=== PATIENT | male | born 1980 | race African-American/Black ===

== ENCOUNTER 2018-02-01 09:39 | Emergency (ER) | payer BC ==
[2018-02-01 11:29] LABS: Absolute Lymphocytes (CBC) 1.4 K/uL (0.7-4.9); Absolute Monocytes 0.4 K/uL (0.1-1.3); Absolute Neutrophil 2.4 K/uL (1.8-8.0); Basophils % 0.7 % (0-1.3); Eosinophils % 7.2 % (0-4.4); Hematocrit 42.3 % (39.6-49.0); Lymphocytes % 31.2 % (15.3-44.8); MCH 28.7 pg (27.0-35.0); MCV 84.6 fL (80-100); Monocytes % 8.5 % (3.3-12.3)
[2018-02-01 11:35] LABS: Protime INR 1.06
[2018-02-01 12:08] LABS: ALT/SGPT 37 U/L (12-78); AST/SGOT 19 U/L (15-37); Albumin 3.9 g/dL (3.4-5.0); Alkaline Phosphatase 56 U/L (45-117); BUN Blood Urea Nitrogen 13 mg/dL (7-18); Bicarbonate 26 mmol/L (21-32); Bilirubin Direct < 0.1 mg/dL (0-0.2); Bilirubin Total 0.3 mg/dL (0.2-1.0); Glucose Level 88 mg/dL (74-106); Lipase 250 U/L (73-393); Potassium 4.2 mmol/L (3.5-5.1); Sodium Level 143 mmol/L (136-145)
--- NOTE | 2018-02-01 14:09 | RAD REPORT ---
EXAM DESCRIPTION: CT - Abdomen Pelvis Wo Contrast - 02/01/2018 1:59 pm CLINICAL HISTORY: Abdominal pain. LLQ abdomen pain, blood in stool COMPARISON: Abdomen Pelvis Wo Contrast dated 12/04/2015 TECHNIQUE: CT imaging of the abdomen and pelvis was performed without contrast. Solid organ, bowel a nd vascular assessment is limited due to lack of IV and oral contrast. All CT scans are performed using dose optimization technique as appropriate and may include automated exposure control or mA/KV adjustment according to patient size. FINDINGS: The lower lung padgett are clear. The liver, spleen, pancreas, adrenal glands and kidneys are within normal limits for a limited non-co ntrast examination. No bowel obstruction, free air, free fluid or abscess. Mild mucosal thickening is present involving t he sigmoid colon. The appendix is normal. The osseous structures are within normal limits. IMPRESSION: Mild sigmoid colitis is suspected. A limited non-contrast examination was performed as detailed.
[2018-02-01] MEDS ORDERED: DICYCLOMINE HCL 10 MG CAP ONE (14:21)
[2018-02-01] MEDS ORDERED: LIDOCAINE VISCOUS 2% SOLN 15 ML UDC ONE (14:21)
[2018-02-01] MEDS ORDERED: PANTOPRAZOLE 40 MG INJ ONE (14:21)
[2018-02-01] MEDS ORDERED: MAGNE/ALUM HYDROXD 30 ML UCUP ONE (14:21)
[2018-02-01] MEDS ORDERED: NA CHLORIDE 0.9% 1,000 ML ONE (14:21)
--- NOTE | 2018-02-01 14:48 | ER ---
Nurse's Notes [facility] Name: Justin Garza Age: 37 yrs Sex: Male : 1980 Arrival Date: 02/01/2018 Time: 09:42 Bed 14 Private MD: Clive Gonzalez E Diagnosis: Sigmoid Colitis Presentation: 02/01 10:14 Presenting complaint: Patient states: Today I have two BM with bright red blood in the la1 toilet and on the toilet paper, pt denies Abd pain, vomiting, but reports diarrhea. Transition of care: patient was not received from another setting of care. Onset of symptoms was February 01, 2018. Risk Assessment: Do you want to hurt yourself or someone else? Patient reports no desire to harm self or others. Initial Sepsis Screen: Does the patient meet any 2 criteria? No. Patient's initial sepsis screen is negative. Does the patient have a suspected source of infection? No. Patient's initial sepsis screen is negative. Care prior to arrival: None. 10:14 Method Of Arrival: Ambulatory la1 10:14 Acuity: ANNIE 3 la1 Historical: - Allergies: 10:16 amoxicillin trihydrate; la1 10:16 Bees; la1 10:16 Demerol; la1 10:16 Epinephrine; la1 10:16 Iodine; la1 10:16 loratadine; la1 10:16 Nuts; la1 10:16 pseudoephedrine sulfate\E\; la1 10:16 SEAFOOD; la1 10:16 Strawberries; la1 - PMHx: 10:16 Asthma; cardiomyopathy; Irregular heart rate; Seizures; SJS; la1 - Immunization history:: Adult Immunizations up to date. - Social history:: Smoking status: Patient/guardian denies using tobacco. - Ebola Screening: : No symptoms or risks identified at this time. Screenin:30 Abuse screen: Denies threats or abuse. Denies injuries from another. Nutritional jl7 screening: No deficits noted. Tuberculosis screening: No symptoms or risk factors identified. Fall Risk IV access (20 points). Total Rivera Fall Scale indicates No Risk (0-24 pts). Assessment: 11:15 General: Appears in no apparent distress. uncomfortable, Behavior is calm, cooperative, jl7 appropriate for age. Pain: Denies pain. Neuro: Level of Consciousness is awake, alert, obeys commands, Oriented to person, place, time, situation. Cardiovascular: Patient's skin is warm and dry. Respiratory: Airway is patent Respiratory effort is even, unlabored, Respiratory pattern is regular, symmetrical. GI: Abdomen is round non-distended, Reports diarrhea, bloody stool. : No signs and/or symptoms were reported regarding the genitourinary system. EENT: No signs and/or symptoms were reported regarding the EENT system. Derm: Skin is dry, Skin is normal, Skin temperature is warm. Musculoskeletal: 12:08 Reassessment: Pt finished drinking oral contrast, CT notified. jl7 13:14 Reassessment: Patient appears in no apparent distress at this time. No changes from [facility] previously documented assessment. Patient and/or family updated on plan of care and expected duration. Pain level reassessed. Patient is alert, oriented x 3, equal unlabored respirations, skin warm/dry/pink. GI: Pt able to collect stool, stool appears to be green and watery. 14:06 Reassessment: Patient appears in no apparent distress at this time. No changes from [facility] previously documented assessment. Patient and/or family updated on plan of care and expected duration. Pain level reassessed. Patient is alert, oriented x 3, equal unlabored respirations, skin warm/dry/pink. pt reports continued pressure/bloating feeling in abdomen and heart burn. ERP notified, see [facility] for orders. Vital Signs: 10:14 BP 141 / 98; Pulse 86; Resp 16; Temp 97.3; Pulse Ox 98% on R/A; Weight 91.63 kg; Height la1 5 ft. 6 in. (167.64 cm); 11:00 BP 140 / 96; Pulse 82; Resp 17; Pulse Ox 98% ; mh5 12:00 BP 138 / 95; Pulse 80; Resp 18; Pulse Ox 99% on R/A; mh5 13:10 BP 139 / 95; Pulse 72; Resp 17; Pulse Ox 99% on R/A; 5 14:06 BP 136 / 113; Pulse 67; Resp 16 S; Pulse Ox 99% on R/A; jl7 15:22 BP 137 / 93; Pulse 69; Resp 16 S; Pulse Ox 100% on R/A; jl7 10:14 Body Mass Index 32.60 (91.63 kg, 167.64 cm) la1 ED Course: 09:42 Patient arrived in ED. mr 09:43 Clive Gonzalez MD is Private Physician. mr 10:15 Triage completed. la1 10:16 Arm band placed on right wrist. la1 10:41 Jordon Montoya PA is PHCP. cp 10:41 Jonas Swanson MD is Attending Physician. cp 11:12 Mary Lou Hua RN is Primary Nurse. jl7 11:30 Patient has correct armband on for positive identification. Placed in gown. Bed in low jl7 position. Call light in reach. Side rails up X 1. Pulse ox on. NIBP on. Warm blanket given. 11:30 Initial lab(s) drawn, by me, sent to lab. Inserted saline lock: 20 gauge in right jl7 antecubital area, using aseptic technique. Blood collected. 13:59 CT Abd/Pelvis - Without Cont: give oral contrast In Process Unspecified. EDMS 13:59 CT completed. Patient tolerated procedure well. Patient moved back from CT. bq 14:44 Stool Culture Sent. mh5 14:44 CDIFF Sent. [facility] 14:47 Clive Cohen MD is Referral Physician. cp 15:22 No provider procedures requiring assistance completed. IV discontinued, intact, jl7 bleeding controlled, No redness/swelling at site. Pressure dressing applied. Administered Medications: 14:08 Drug: Bentyl 20 mg Route: PO; jl7 15:23 Follow up: Response: No adverse reaction; Pain is decreased jl7 14:09 Drug: GI Cocktail without - (Maalox Suspension 30 ml, Lidocaine Liquid 2 % 15 jl7 ml) Route: PO; 14:30 Follow up: Response: No adverse reaction; Pain is decreased jl7 14:10 Drug: NS 0.9% 1000 ml Route: IV; Rate: 1 bolus; Site: right antecubital; jl7 15:23 Follow up: Response: No adverse reaction; IV Status: Completed infusion jl7 14:11 Drug: ProTONIX 40 mg Route: IVP; Site: right antecubital; jl7 14:30 Follow up: Response: No adverse reaction; Pain is decreased jl7 14:47 Drug: metroNIDAZOLE 500 mg Volume: 100 ml; Route: IVPB; Infused Over: 30 mins; Site: jl7 right antecubital; 15:17 Follow up: Response: No adverse reaction; IV Status: Completed infusion jl7 15:05 Drug: Cipro 500 mg Route: PO; jl7 15:22 Follow up: Response: No adverse reaction jl7 Outcome: 14:48 Discharge ordered by . von 15:22 Discharged to home ambulatory, with family. jl7 15:22 Condition: stable 15:22 Discharge instructions given to patient, family, Instructed on discharge instructions, follow up and referral plans. medication usage, Demonstrated understanding of instructions, follow-up care, medications, Prescriptions given X 4. 15:26 Patient left the ED. jl7 Signatures: Dispatcher [employer] JUDY JlIlana mr CoreasKorina Lee RN RN la1 Jordon Montoya PA PA cp Martinez, Maria [facility] Mary Lou Hua RN RN jl7 Corrections: (The following items were deleted from the chart) 14:31 14:06 Reassessment: Patient appears in no apparent distress at this time. No changes jl7 from previously documented assessment. Patient and/or family updated on plan of care and expected duration. Pain level reassessed. Patient is alert, oriented x 3, equal unlabored respirations, skin warm/dry/pink. jl7
--- NOTE | 2018-02-01 14:49 | EDPHYS ---
Physician Documentation [facility] Name: Justin Garza Age: 37 yrs Sex: Male : 1980 Arrival Date: 02/01/2018 Time: 09:42 Bed 14 Private MD: Clive Gonzalez E ED Physician Jonas Swanson HPI: 02/01 11:10 This 37 yrs old Black Male presents to ER via Ambulatory with complaints of Bloody cp Stools. Historical: - Allergies: 10:16 amoxicillin trihydrate; la1 10:16 Bees; la1 10:16 Demerol; la1 10:16 Epinephrine; la1 10:16 Iodine; la1 10:16 loratadine; la1 10:16 Nuts; la1 10:16 pseudoephedrine sulfate\E\; la1 10:16 SEAFOOD; la1 10:16 Strawberries; la1 - PMHx: 10:16 Asthma; cardiomyopathy; Irregular heart rate; Seizures; SJS; la1 - Immunization history:: Adult Immunizations up to date. - Social history:: Smoking status: Patient/guardian denies using tobacco. - Ebola Screening: : No symptoms or risks identified at this time. ROS: 11:15 Constitutional: Negative for body aches, chills, fever, poor PO intake, weight loss. cp 11:15 Eyes: Negative for injury, pain, redness, and discharge. cp Exam: 11:20 Constitutional: The patient appears in no acute distress, alert, awake, non-toxic, well cp developed, well nourished. 11:20 Head/Face: Normocephalic, atraumatic. cp 11:20 Eyes: Periorbital structures: appear normal, Conjunctiva: normal, no exudate, no injection, Sclera: no appreciated abnormality, Lids and lashes: appear normal, bilaterally. 11:20 ENT: External ear(s): are unremarkable, Nose: is normal, Mouth: Lips: moist, Oral mucosa: pink and intact, moist, Posterior pharynx: is normal, airway is patent, no erythema, no exudate. 11:20 Chest/axilla: Inspection: normal, Palpation: is normal, no crepitus, no tenderness. 11:20 Cardiovascular: Rate: normal, Rhythm: regular, Heart sounds: murmur, not appreciated, Edema: is not appreciated, JVD: is not appreciated. 11:20 Respiratory: the patient does not display signs of respiratory distress, Respirations: normal, no use of accessory muscles, no retractions, no splinting, no tachypnea, labored breathing, is not present, Breath sounds: are clear throughout, no decreased breath sounds, no stridor, no wheezing. 11:20 Abdomen/GI: Inspection: abdomen appears normal, Bowel sounds: active, all quadrants, Palpation: soft, in all quadrants, mild abdominal tenderness, in the left lower quadrant, rebound tenderness, is not appreciated, involuntary guarding, is not appreciated, Rectal exam: Stool: guadalupe, guaiac negative. 11:20 Back: pain, is absent, ROM is normal. 11:20 Skin: cellulitis, is not appreciated, no rash present. 11:20 Neuro: Orientation: is normal, Mentation: is normal, Cerebellar function: is grossly normal, Motor: moves all fours, strength is normal, Sensation: is normal. Vital Signs: 10:14 BP 141 / 98; Pulse 86; Resp 16; Temp 97.3; Pulse Ox 98% on R/A; Weight 91.63 kg; Height la1 5 ft. 6 in. (167.64 cm); 11:00 BP 140 / 96; Pulse 82; Resp 17; Pulse Ox 98% ; mh5 12:00 BP 138 / 95; Pulse 80; Resp 18; Pulse Ox 99% on R/A; mh5 13:10 BP 139 / 95; Pulse 72; Resp 17; Pulse Ox 99% on R/A; mh5 14:06 BP 136 / 113; Pulse 67; Resp 16 S; Pulse Ox 99% on R/A; jl7 15:22 BP 137 / 93; Pulse 69; Resp 16 S; Pulse Ox 100% on R/A; jl7 10:14 Body Mass Index 32.60 (91.63 kg, 167.64 cm) la1 MDM: 10:41 Patient medically screened. cp 14:47 Data reviewed: vital signs, nurses notes, lab test result(s), radiologic studies, CT cp scan, and as a result, I will discharge patient. 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 02/01 11:02 Order name: Basic Metabolic Panel; Complete Time: 12:28 cp 02/01 11:02 Order name: CBC with Diff; Complete Time: 12:28 cp 02/01 12:28 Interpretation: Normal except: MPV 7.0; EOSINOPHIL % 7.2. cp 02/01 11:02 Order name: Creatinine for Radiology; Complete Time: 12:28 cp 02/01 11:02 Order name: Hepatic Function; Complete Time: 12:28 cp 02/01 11:02 Order name: Lipase; Complete Time: 12:28 cp 02/01 11:02 Order name: PT-INR; Complete Time: 12:28 cp 02/01 11:02 Order name: Ptt, Activated; Complete Time: 12:28 cp 02/01 11:02 Order name: CT Abd/Pelvis - Without Cont: give oral contrast; Complete Time: 14:16 cp 02/01 14:17 Order name: Stool Culture 02/01 14:17 Order name: CDIFF cp 02/01 11:02 Order name: IV Saline Lock; Complete Time: 11:23 cp 02/01 11:02 Order name: Labs collected and sent; Complete Time: 11: cp 02/01 14:43 Order name: PO challenge; Complete Time: 14:47 cp Administered Medications: 14:08 Drug: Bentyl 20 mg Route: PO; jl7 15:23 Follow up: Response: No adverse reaction; Pain is decreased jl7 14:09 Drug: GI Cocktail without - (Maalox Suspension 30 ml, Lidocaine Liquid 2 % 15 jl7 ml) Route: PO; 14:30 Follow up: Response: No adverse reaction; Pain is decreased jl7 14:10 Drug: NS 0.9% 1000 ml Route: IV; Rate: 1 bolus; Site: right antecubital; jl7 15:23 Follow up: Response: No adverse reaction; IV Status: Completed infusion jl7 14:11 Drug: ProTONIX 40 mg Route: IVP; Site: right antecubital; jl7 14:30 Follow up: Response: No adverse reaction; Pain is decreased jl7 14:47 Drug: metroNIDAZOLE 500 mg Volume: 100 ml; Route: IVPB; Infused Over: 30 mins; Site: [facility] right antecubital; 15:17 Follow up: Response: No adverse reaction; IV Status: Completed infusion 7 15:05 Drug: Cipro 500 mg Route: PO; 7 15:22 Follow up: Response: No adverse reaction [facility] Disposition: 02/01/18 14:48 Discharged to Home. Impression: Sigmoid Colitis. - Condition is Stable. - Discharge Instructions: Colitis. - Prescriptions for Cipro 500 mg Oral Tablet - take 1 tablet by ORAL route every 12 hours for 10 days; 20 tablet. Ultram 50 mg Oral Tablet - take 1 tablet by ORAL route every 6 hours As needed; 20 tablet. Metronidazole 500 mg Oral Tablet - take 1 tablet by ORAL route every 8 hours; 30 tablet. Protonix 40 mg Oral Tablet, Delayed Release (E.C.) - take 1 tablet by ORAL route once daily; 10 tablet. - Medication Reconciliation Form, Thank You Letter, Antibiotic Education, Prescription Opioid Use, Work release form form. - Follow up: Clive Cohen MD; When: 2 - 3 days; Reason: Recheck today's complaints. - Problem is new. - Symptoms have improved. Signatures: Dispatcher [employer] EDMS Sanjay Caly RN RN la1 Jordon Montoya PA PA cp Mary Lou Hua RN RN jl7 Corrections: (The following items were deleted from the chart) 15:26 14:48 02/01/2018 14:48 Discharged to Home. Impression: Sigmoid Colitis. Condition is [facility] Stable. Forms are Medication Reconciliation Form, Thank You Letter, Antibiotic Education, Prescription Opioid Use. Follow up: Clive Cohen; When: 2 - 3 days; Reason: Recheck today's complaints. Problem is new. Symptoms have improved. cp
[2018-02-01] MEDS ORDERED: METRONIDAZOLE 500mg IVPB 500 MG/100 ML BAG IV ONE (14:54)
[2018-02-01] MEDS ORDERED: CIPROFLOXACIN HCL 500 MG TAB ONE (15:06)
[2018-02-01 16:55] VITALS: TEMP 97.3
[2018-02-01 17:03] VITALS: BP 137/93; O2SAT 100
== END 2018-02-01 15:26 | disposition home or self-care (01) ==
LOC: ER 09:39
DX: K52.89 Other specified noninfective gastroenteritis and colitis (principal); Z88.1 Allergy status to other antibiotic agents; Z88.5 Allergy status to narcotic agent; Z88.8 Allergy status to other drugs, medicaments and biological substances; Z91.013 Allergy to seafood; Z91.018 Allergy to other foods; Z91.030 Bee allergy status; Z91.048 Other nonmedicinal substance allergy status
CPT/HCPCS: 36415; 74176; 80048; 80076; 83690; 85025; 85610; 85730; 87045; 87046; 87493; 96361; 96365; 96375; 99284; C9113; J7030

== ENCOUNTER 2018-04-05 10:37 | Observation (INO) | payer BC ==
[2018-04-05] MEDS ORDERED: LEVALBUTEROL 1.25 MG/3 ML NEB ONE (11:09)
[2018-04-05 11:21] LABS: Absolute Lymphocytes (CBC) 1.1 K/uL (0.7-4.9); Absolute Monocytes 0.3 K/uL (0.1-1.3); Absolute Neutrophil 1.2 K/uL (1.8-8.0); Basophils % 0.8 % (0-1.3); Eosinophils % 10.4 % (0-4.4); Hematocrit 42.4 % (39.6-49.0); Lymphocytes % 37.4 % (15.3-44.8); RBC Red Blood Cell Count 5.02 M/uL (4.33-5.43)
[2018-04-05 11:24] LABS: Protime INR 1.15
[2018-04-05] MEDS ORDERED: METHYLPREDNISOLONE 125 MG INJ ONE (11:40)
[2018-04-05] MEDS ORDERED: ASPIRIN 81 MG CHEWABLE TABLET ONE (11:40)
[2018-04-05 11:41] LABS: ALT/SGPT 41 U/L (12-78); AST/SGOT 18 U/L (15-37); Albumin 3.9 g/dL (3.4-5.0); Alkaline Phosphatase 58 U/L (45-117); BUN Blood Urea Nitrogen 9 mg/dL (7-18); Bicarbonate 28 mmol/L (21-32); Bilirubin Direct 0.1 mg/dL (0-0.2); Bilirubin Total 0.5 mg/dL (0.2-1.0); Glucose Level 106 mg/dL (74-106); Magnesium 2.2 mg/dL (1.8-2.4); NT PRO-BNP 34 pg/mL (<125); Potassium 4.2 mmol/L (3.5-5.1); Protein, Total 7.7 g/dL (6.4-8.2); Sodium Level 144 mmol/L (136-145); Troponin (Emerg Dept Use Only) < 0.02 ng/mL (0.0-0.045)
--- NOTE | 2018-04-05 12:12 | EDPHYS ---
Physician Documentation [facility] Name: Justin Garza Age: 37 yrs Sex: Male : 1980 Arrival Date: 04/05/2018 Time: 10:39 Bed 6 Private MD: Clive Gonzalez E ED Physician Jordon Bermudez HPI: 04/05 10:52 This 37 yrs old Black Male presents to ER via Ambulatory with complaints of Shortness jmm Of Breath. 10:52 The patient has shortness of breath with light activity. Onset: The symptoms/episode jmm began/occurred gradually, 3 day(s) ago. Associated signs and symptoms: Pertinent positives: chest pain. This is a 37 year old male with a history of asthma, chf, cardiomyopathy, that presents to the ED with complaints of shortness of breath beginning 3 days ago. patient recently diagnosed with chf and is currently taking 40mg of furosemide. Patient complaints o worsening shortness of breath on exertion. Patient also complains of chest pain he describes as pressure. . Historical: - Allergies: 10:51 amoxicillin trihydrate; ch 10:51 Bees; ch 10:51 Demerol; ch 10:51 Epinephrine; ch 10:51 Iodine; ch 10:51 loratadine; ch 10:51 Nuts; ch 10:51 pseudoephedrine sulfate\E\; ch 10:51 SEAFOOD; ch 10:51 Strawberries; ch - Home Meds: 10:51 tramadol 50 mg Oral tab 1 tab for Pain [Active]; amlodipine 5 mg tab 1 tab once daily ch [Active]; Dexilant 60 mg oral CpDB 1 cap for Heartburn [Active]; Lasix 40 mg Oral tab 1 tab once daily [Active]; Albuterol Inhl [Active]; Proventil Inhl [Active]; Singulair Oral [Active]; - PMHx: 10:51 Asthma; cardiomyopathy; Irregular heart rate; Seizures; SJS; CHF; GERD; ch - Immunization history:: Adult Immunizations up to date. - Social history:: Smoking status: Patient/guardian denies using tobacco. - Ebola Screening: : Patient negative for fever greater than or equal to 101.5 degrees Fahrenheit, and additional compatible Ebola Virus Disease symptoms Patient denies exposure to infectious person Patient denies travel to an Ebola-affected area in the 21 days before illness onset No symptoms or risks identified at this time. ROS: 10:52 Constitutional: Negative for fever, chills, and weight loss. jm 10:52 Cardiovascular: Positive for chest pain. 10:52 Respiratory: Positive for shortness of breath. 10:52 All other systems are negative. Exam: 10:52 Constitutional: This is a well developed, well nourished patient who is awake, alert, jmm and in no acute distress. Head/Face: atraumatic. Eyes: EOMI, no conjunctival erythema appreciated ENT: Moist Mucus Membranes Neck: Trachea midline, Supple Chest/axilla: Normal chest wall appearance and motion. 10:52 Abdomen/GI: Non distended, soft Back: Normal ROM Skin: General appearance color normal MS/ Extremity: Moves all extremities, no obvious deformities appreciated, no edema noted to the lower extremities Neuro: Awake and alert, normal gait Psych: Behavior is normal, Mood is normal, Patient is cooperative and pleasant 10:52 Cardiovascular: Rate: normal, Rhythm: regular. 10:52 Respiratory: mild respiratory distress is noted, Respirations: normal, Breath sounds: wheezing: that is moderate, is scattered. Vital Signs: 10:51 BP 123 / 72; Pulse 90; Resp 26; Temp 98.8; Pulse Ox 94% on R/A; Pain 4/10; ch 11:12 Temp 98.1(O); Weight 88.45 kg; Height 5 ft. 6 in. (167.64 cm); ch 12:00 BP 123 / 80; Pulse 78; Resp 20; Temp 97.9; Pulse Ox 99% on R/A; Pain 3/10; ch 13:00 BP 122 / 96; Pulse 57; Resp 16; Temp 97.9; Pulse Ox 96% on R/A; Pain 3/10; ch 11:12 Body Mass Index 31.47 (88.45 kg, 167.64 cm) ch MDM: 10:41 Patient medically screened. alvarez 11:59 Differential diagnosis: asthma, CHF exacerbation, Myocardial Infarction. Data reviewed: [facility] vital signs, nurses notes, lab test result(s), radiologic studies, plain films. Counseling: I had a detailed discussion with the patient and/or guardian regarding: the historical points, exam findings, and any diagnostic results supporting the discharge/admit diagnosis, lab results, radiology results, the need for outpatient follow up, to return to the emergency department if symptoms worsen or persist or if there are any questions or concerns that arise at home. 12:10 ED course: I discussed the patient with Dr. Cotto whom accepted admission. . 04/05 10:51 Order name: Basic Metabolic Panel; Complete Time: 11:49 04/05 10:51 Order name: CBC with Diff; Complete Time: 11:25 04/05 10:51 Order name: LFT's; Complete Time: 11:04/05 10:51 Order name: Magnesium; Complete Time: 11:04/05 10:51 Order name: NT PRO-BNP; Complete Time: 11:49 04/05 10:51 Order name: PT-INR; Complete Time: 11:04/05 10:51 Order name: Troponin (emerg Dept Use Only); Complete Time: 11:49 04/05 10:51 Order name: XRAY Chest (1 view); Complete Time: 12:15 04/05 10:51 Order name: EKG; Complete Time: 10:52 04/05 10:51 Order name: Cardiac monitoring; Complete Time: 11:04/05 10:51 Order name: EKG - Nurse/Tech; Complete Time: 11: 04/05 10:51 Order name: IV Saline Lock; Complete Time: 13:12 04/05 10:51 Order name: Labs collected and sent; Complete Time: 13:12 04/05 10:51 Order name: O2 Per Protocol; Complete Time: 13: [facility] 04/05 10:51 Order name: O2 Sat Monitoring; Complete Time: 13:12 [facility] Administered Medications: 11:12 Drug: Xopenex (3) 1.25 mg Route: Inhalation; ch 11:46 Follow up: Response: No adverse reaction ch 11:22 Drug: SOLU-Medrol 125 mg Route: IVP; Site: right antecubital; ch 11:46 Follow up: Response: No adverse reaction ch 11:22 Drug: Aspirin Chewable Tablet 324 mg Route: PO; ch 12:32 Follow up: Response: No adverse reaction ch Disposition: 04/06 07:52 Co-signature as Attending Physician, Jordon Bermudez MD I agree with the assessment and alvarez plan of care. Disposition: 04/05/18 12:11 Hospitalization ordered by Michele Cotto for Observation. Preliminary diagnosis is Chest pain, unspecified. - Bed requested for Telemetry/MedSurg (observation). - Status is Observation. - Condition is Stable. - Problem is an acute exacerbation. - Symptoms have improved. UTI on Admission? No Signatures: Dispatcher [employer] EDRoya Sam RN RN ch Anderson, Corey, MD MD cha Mickail, Joel, PA PA jmm Solis, Maria ms Corrections: (The following items were deleted from the chart) 04/05 12:46 12:11 Hospitalization Ordered by Michele Cotto DO for Observation. Preliminary ms diagnosis is Chest pain, unspecified. Bed requested for Telemetry/MedSurg (observation). Status is Observation. Condition is Stable. Problem is an acute exacerbation. Symptoms have improved. UTI on Admission? No. jose 13:54 12:46 04/05/2018 12:11 Hospitalization Ordered by Michele Cotto DO for Observation. Preliminary diagnosis is Chest pain, unspecified. Bed requested for Telemetry/MedSurg (observation). Status is Observation. Condition is Stable. Problem is an acute exacerbation. Symptoms have improved. UTI on Admission? No. ms
--- NOTE | 2018-04-05 12:12 | ER ---
Nurse's Notes [facility] Emergency Department Name: Justin Garza Age: 37 yrs Sex: Male : 1980 Arrival Date: 04/05/2018 Time: 10:39 Bed 6 Private MD: Clive Gonzalez E Diagnosis: Chest pain, unspecified Presentation: 04/05 10:46 Presenting complaint: Patient states: chest pain, sob, cough, chest tightness for the ch past 3 days, getting worse. Transition of care: patient was not received from another setting of care. Onset of symptoms was April 02, 2017. Risk Assessment: Do you want to hurt yourself or someone else? Patient reports no desire to harm self or others. Initial Sepsis Screen: Does the patient meet any 2 criteria? No. Patient's initial sepsis screen is negative. Does the patient have a suspected source of infection? No. Patient's initial sepsis screen is negative. Care prior to arrival: Medication(s) given: Albuterol Neb Atrovent Neb. 10:46 Method Of Arrival: Ambulatory 10:46 Acuity: ANNIE 2 ch Triage Assessment: 10:51 General: Appears in no apparent distress. uncomfortable, Behavior is calm, cooperative, ch appropriate for age. Pain: Complains of pain in chest Pain currently is 4 out of 10 on a pain scale. Quality of pain is described as pressure, Pain began 2-3 days ago. Is continuous. Neuro: No deficits noted. Respiratory: Reports shortness of breath Airway is patent Respiratory effort is even, labored, Respiratory pattern is regular, Breath sounds with wheezes bilaterally. Onset: The symptoms/episode began/occurred gradually, the patient has moderate shortness of breath. Historical: - Allergies: 10:51 amoxicillin trihydrate; ch 10:51 Bees; ch 10:51 Demerol; ch 10:51 Epinephrine; ch 10:51 Iodine; ch 10:51 loratadine; ch 10:51 Nuts; ch 10:51 pseudoephedrine sulfate\E\; ch 10:51 SEAFOOD; ch 10:51 Strawberries; ch - Home Meds: 10:51 tramadol 50 mg Oral tab 1 tab for Pain [Active]; amlodipine 5 mg tab 1 tab once daily ch [Active]; Dexilant 60 mg oral CpDB 1 cap for Heartburn [Active]; Lasix 40 mg Oral tab 1 tab once daily [Active]; Albuterol Inhl [Active]; Proventil Inhl [Active]; Singulair Oral [Active]; - PMHx: 10:51 Asthma; cardiomyopathy; Irregular heart rate; Seizures; SJS; CHF; GERD; ch - Immunization history:: Adult Immunizations up to date. - Social history:: Smoking status: Patient/guardian denies using tobacco. - Ebola Screening: : Patient negative for fever greater than or equal to 101.5 degrees Fahrenheit, and additional compatible Ebola Virus Disease symptoms Patient denies exposure to infectious person Patient denies travel to an Ebola-affected area in the 21 days before illness onset No symptoms or risks identified at this time. Screenin:00 Abuse screen: Denies threats or abuse. Denies injuries from another. Nutritional ch screening: No deficits noted. Tuberculosis screening: No symptoms or risk factors identified. Fall Risk None identified. Assessment: 11:12 Reassessment: Patient appears in no apparent distress at this time. No changes from previously documented assessment. Patient and/or family updated on plan of care and expected duration. Pain level reassessed. Cardiovascular: Rhythm is sinus rhythm. 12:00 Reassessment: Patient appears in no apparent distress at this time. Patient and/or ch family updated on plan of care and expected duration. Pain level reassessed. Patient is alert, oriented x 3, equal unlabored respirations, skin warm/dry/pink. Patient states feeling better. Patient states symptoms have improved. 13:00 Reassessment: Patient appears in no apparent distress at this time. Patient and/or ch family updated on plan of care and expected duration. Pain level reassessed. Patient is alert, oriented x 3, equal unlabored respirations, skin warm/dry/pink. Vital Signs: 10:51 BP 123 / 72; Pulse 90; Resp 26; Temp 98.8; Pulse Ox 94% on R/A; Pain 4/10; ch 11:12 Temp 98.1(O); Weight 88.45 kg; Height 5 ft. 6 in. (167.64 cm); 12:00 BP 123 / 80; Pulse 78; Resp 20; Temp 97.9; Pulse Ox 99% on R/A; Pain 3/10; ch 13:00 BP 122 / 96; Pulse 57; Resp 16; Temp 97.9; Pulse Ox 96% on R/A; Pain 3/10; ch 11:12 Body Mass Index 31.47 (88.45 kg, 167.64 cm) ED Course: 10:39 Patient arrived in ED. as 10:39 Clive Gonzalez MD is Private Physician. as 10:39 Roya Leon, TAMMIE is Primary Nurse. ch 10:40 Lalo Barajas PA is PHCP. [facility] 10:40 Jordon Bermudez MD is Attending Physician. [facility] 10:47 Triage completed. ch 10:51 Arm band placed on left wrist. Patient placed in an exam room, on a stretcher, on pulse ch oximetry. EKG completed in triage. Results shown to MD. 11:00 Patient has correct armband on for positive identification. Placed in gown. Bed in low ch position. Call light in reach. Side rails up X 1. Adult w/ patient. densitometer reader on. Pulse ox on. NIBP on. 11:00 Warm blanket given. 11:01 EKG done, by ED staff, reviewed by Lalo CARRILLO. 3 11:28 XRAY Chest (1 view) In Process Unspecified. EDMS 11:30 No provider procedures requiring assistance completed. Inserted saline lock: 20 gauge ch in right antecubital area, using aseptic technique. 12:10 Michele Cotto DO is Hospitalizing Provider. [facility] 12:56 Patient admitted, IV remains in place. ch Administered Medications: 11:12 Drug: Xopenex (3) 1.25 mg Route: Inhalation; ch 11:46 Follow up: Response: No adverse reaction 11:22 Drug: SOLU-Medrol 125 mg Route: IVP; Site: right antecubital; ch 11:46 Follow up: Response: No adverse reaction 11:22 Drug: Aspirin Chewable Tablet 324 mg Route: PO; ch 12:32 Follow up: Response: No adverse reaction Outcome: 12:11 Decision to Hospitalize by Provider. [facility] 13:00 Admitted to Tele accompanied by tech, via wheelchair, room 414, with chart, Report ch called to jensen 13:00 Condition: stable 13:00 Instructed on the need for admit. 13:54 Patient left the ED. Signatures: Dispatcher [employer] EDMS Ryoa Leon, RN RN Lalo Goode PA PA jmm Martinez, Amelia as Herrera, Matilda formerly [facility]
--- NOTE | 2018-04-05 12:13 | RAD REPORT ---
EXAM DESCRIPTION: Ronald Single View04/05/2018 11:31 am CLINICAL HISTORY: sob COMPARISON: 2017 FINDINGS: The lungs appear clear of acute infiltrate. The heart is normal size IMPRESSION: No acute abnormalities displayed
--- NOTE | 2018-04-05 12:55 | P.HP ---
Certification for Inpatient Patient admitted to: Observation With expected LOS: <2 Midnights Patient will require the following post-hospital care: None Practitioner: I am a practitioner with admitting privileges, knowledge of patient current condition, hospital course, and medical plan of care. Services: Services provided to patient in accordance with Admission requirements found in Title 42 Section 412.3 of the Code of Federal Regulations Patient History Date of Service: 04/05/18 Primary Care Provider: Dr. Gonzalez; Cardiology-Dr. Fisher Reason for admission: Chest pain and shortness of breath History of Present Illness: 37-year-old male presented to the emergency room with chest pain and shortness of breath. Patient with history of asthma, cardiomyopathy and systolic CHF. Patient seen by cardiology as an outpatient. Patient reported shortness of breath and chest pain over the last 3 days. Chest pain is substernal in nature. He reports it is a pressure like sensation. Patient recently started on Lasix. He was taken off lisinopril. Patient came to the ER for further evaluation. In the ER patient evaluated. Initial cardiac enzymes unremarkable. EKG shows some T-wave inversion. No ST changes noted. Chest x-ray unremarkable. CBC and lab reviewed. Patient admitted for further evaluation. When I saw the patient ER, he appeared comfortable. Patient also seen by Cardiology. Allergies amoxicillin trihydrate [From Amoxil] Allergy (Severe, Verified 12/01/11 20:24) Itching/Hives/Rash iodine Allergy (Severe, Verified 12/01/11 20:24) Itching loratadine [From Claritin-D 12 Hour] Allergy (Severe, Verified 12/01/11 20:24) Itching/Hives/Rash pseudoephedrine sulfate [From Claritin-D 12 Hour] Allergy (Severe, Verified 30/01 20:24) Itching/Hives/Rash epinephrine Allergy (Verified 12/02/11 15:46) Anaphylaxis meperidine [From Demerol] Allergy (Unverified 11/22/16 12:54) Unknown SE Allergy (Mild, Uncoded 12/09/16 11:08) Unknown Bees Allergy (Uncoded 08/14/15 02:30) Unknown Nuts Allergy (Uncoded 08/14/15 02:30) Unknown pseudoephedr Allergy (Uncoded 08/14/15 02:30) Unknown pseudoephedrine Allergy (Uncoded 11/22/16 12:54) Unknown pseudoephedrine s Allergy (Uncoded 11/02/16 21:55) Unknown pseudoephedrine riley Allergy (Uncoded 03/21/16 00:18) Unknown seafo Allergy (Uncoded 08/14/15 02:30) Unknown SEAFOO Allergy (Uncoded 11/02/16 21:55) Unknown SEAFOOD Allergy (Uncoded 03/21/16 00:18) Unknown Strawberri Allergy (Uncoded 08/14/15 02:30) Unknown Strawberries Allergy (Uncoded 03/21/16 00:18) Unknown Home medications list reviewed: Yes Home Medications: Home Med [Home or Non Formulary Med*] 12/02/11 Home Med [Home or Non Formulary Med*] 12/02/11 Home Med [Home or Non Formulary Med*] 12/02/11 Cetirizine HCl [Zyrtec] 10 mg PO DAILY #0 tablet 12/04/11 Fluticasone/Salmeterol [Advair 250/50 Diskus*] 1 puff IH BID #0 disk 12/04/11 Hydrocodone 5/APAP 325 [[place]field 5/325*] 1 each PO Q6HP PRN #0 tab 12/04/11 Levalbuterol [Xopenex*] 1.25 mg IH Q6HP PRN #0 vial 12/04/11 Methylprednisolone [Medrol] 0 mg PO CONT #0 tablet 12/04/11 Montelukast Sodium [Singulair] 10 mg PO DAILY #0 tablet 12/04/11 - Past Medical/Surgical History Diabetic: No -: Asthma -: Systolic CHF -: Cardiomyopathy Past Surgical History: Patient denies surgical history Psychosocial/ Personal History: Patient is . He has 1 child. 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 - Family History Father -: Heart disease, Hypertension, Stroke - Social History Smoking Status: Never smoker Alcohol use: Yes CD- Drugs: No Caffeine use: Yes Place of Residence: Home Review of Systems General: As per HPI Eyes: Unremarkable ENT: Unremarkable Respiratory: Shortness of Breath, SOB with Excertion, As per HPI Cardiovascular: Chest Pain, As per HPI Gastrointestinal: Unremarkable Genitourinary: Unremarkable Musculoskeletal: Unremarkable Integumentary: Unremarkable Neurological: Unremarkable Lymphatics: Unremarkable Physical Examination - Physical Exam General: Alert, In no apparent distress, Oriented x3, Cooperative HEENT: Atraumatic, Normocephalic, PERRLA, Mucous membr. moist/pink Neck: Supple, No Thyromegaly Respiratory: Clear to auscultation bilaterally, Normal air movement Cardiovascular: Normal pulses, Regular rate/rhythm Gastrointestinal: Normal bowel sounds, Soft and benign, Non-distended, No tenderness, No masses, No rebound, No guarding Musculoskeletal: No erythema, No tenderness, No warmth Integumentary: No tenderness/swelling, No erythema, No warmth, No cyanosis Neurological: Normal speech, Normal strength at 5/5 x4 extr, Normal tone, Normal affect - Studies Laboratory Data (last 24 hrs) 04/05/18 11:04: PT 13.5 H, INR 1.15 04/05/18 11:04: WBC 3.0 L, Hgb 14.1, Hct 42.4, Plt Count 304 04/05/18 11:04: Sodium 144, Potassium 4.2, BUN 9, Creatinine 1.21, Glucose 106, Magnesium 2.2, Total Bilirubin 0.5, AST 18, ALT 41, Alkaline Phosphatase 58 Assessment and Plan - Plan Impression: Chest pain which shortness of breath with history of cardiomyopathy and chronic systolic CHF Asthma Plan: Chest pain which shortness of breath with history of cardiomyopathy and chronic systolic CHF: Patient will be admitted. Will continue to monitor cardiac enzymes and telemetry. Will provide aspirin. Spoke with cardiology. Will order cardiac stress test to further evaluate his condition. Continue Lasix for his CHF. Will place on a 1500 cc per day fluid restriction. Will maintain sats above 90%. Await stress tests result findings. If negative likely anticipate discharge tomorrow. I will turn the service over to Dr. Desouza tomorrow. I will go over the plan of care with her. Asthma: Continue with albuterol. Will maintain sats above 90%. Will restart Singulair Discharge Plan: Home Plan to discharge in: 24 Hours - Advance Directives Does patient have a Living Will: No Does patient have a Durable POA for Healthcare: No - Code Status/Comfort Care Code Status Assessed: Yes (Patient full code.) Time Spent Managing Pts Care (In Minutes): 55
[2018-04-05] MEDS ORDERED: ONDANSETRON 4 MG/2 ML VIAL IV PRN (13:35)
[2018-04-05] MEDS ORDERED: ALBUTEROL 2.5 MG/3 ML NEB SOL NEB PRN ×2 (13:35→18:41)
[2018-04-05 14:12] VITALS: BMI 31.6
[2018-04-05 14:54] LABS: CKMB Creatine Kinase MB 1.4 ng/mL (0.3-3.6); Creatine Phosphokinase 172 U/L (39-308); Thyroid Stimulating Hormone 0.318 uIU/mL (0.360-3.740); Troponin I < 0.02 ng/mL (0.0-0.045)
--- NOTE | 2018-04-05 14:57 | CON ---
History Of Present Illness: Mr. Garza is 37-year-old. He came to the hospital with chest pain. Enzy mes and EKGs are within normal limits. He has a history of cardiomyopathy. His ejection fraction is in the 45-49% range, so mildly depressed. He has developed heart failure symptoms, but he is asympt omatic with respect to heart failure symptoms presently. It was within the past month that we starte d typical congestive heart failure medications and it seemed to have helped him. He is allergic to a moxicillin, iodine, and loratadine. He has a history of mild mental retardation. Medications: Outpatient medications have been tramadol, amlodipine, Dexilant, albuterol, Proventil, Lasix, and he is also on one of the angiotensin receptor blockers that he did not list. I think ther e is a medication error in our list and I will do my best to straighten that out. Impression: Mr. Garza probably is not having symptoms from coronary artery disease. His symptoms are very atypical chest pain and if the enzymes are normal, we will do a pharmacologic nuclear stress te st. QUINN/BUDDY Voice ID: [id number] Report ID: [id number]
[2018-04-05] MEDS: ENOXAPARIN 40 MG/0.4 ML SQ SCH (15:00)
[2018-04-05 15:42] LABS: Urine Appearance CLEAR; Urine Bilirubin NEGATIVE (NEG); Urine Blood NEGATIVE (NEG); Urine Color YELLOW; Urine Glucose NEGATIVE (NEG); Urine Protein 1+ (NEG); Urine Specific Gravity >=1.030 (1.005-1.030); Urine Urobilinogen 0.2 mg/dL (0.2-1.0); Urine pH 8.5 (5.0-7.0)
[2018-04-05] MEDS: IPRATROPIUM BROM 0.5MG/2.5ML NEB PRN (16:30)
[2018-04-05] MEDS: ACETAMINOPHEN 500 MG TAB PO PRN (16:51)
[2018-04-05 17:18] LABS: Urine Microscopic Reflex ORDER UMIC
[2018-04-05 18:08] LABS: Urine Bacteria NONE SEEN /HPF (NONE SEEN); Urine Culture Reflex Order NOT NEEDED; Urine RBC NONE SEEN /HPF (NONE SEEN)
[2018-04-05] MEDS ORDERED: IBUPROFEN 400 MG TAB PO PRN (18:30)
[2018-04-05] MEDS ORDERED: TRAMADOL HCL 50 MG TAB PO PRN (18:30)
[2018-04-05] MEDS ORDERED: MORPHINE 2 MG/ML SYR IV PRN (18:39)
[2018-04-05] MEDS ORDERED: NITROGLYCERIN 0.4 MG/TAB SL PRN (18:39)
[2018-04-05] MEDS: MAGNESIUM SULFATE 1 gm IVPB 1 GM/100 ML BAG IV ONE ×2 (18:50→18:52)
[2018-04-05] MEDS ORDERED: MONTELUKAST 10 MG TAB PO SCH (21:00)
[2018-04-05 23:37] LABS: CKMB Creatine Kinase MB 1.4 ng/mL (0.3-3.6); Creatine Phosphokinase 158 U/L (39-308); Troponin I < 0.02 ng/mL (0.0-0.045)
[2018-04-06 04:21] LABS: Absolute Lymphocytes (CBC) 0.9 K/uL (0.7-4.9); Absolute Monocytes 0.3 K/uL (0.1-1.3); Absolute Neutrophil 6.6 K/uL (1.8-8.0); Basophils % 0.3 % (0-1.3); Eosinophils % 0.1 % (0-4.4); Hematocrit 41.6 % (39.6-49.0); Lymphocytes % 11.7 % (15.3-44.8); Monocytes % 4.2 % (3.3-12.3)
[2018-04-06 04:40] LABS: BUN Blood Urea Nitrogen 11 mg/dL (7-18); Bicarbonate 24 mmol/L (21-32); Glucose Level 138 mg/dL (74-106); HDL Cholesterol 58 mg/dL (40-60); LDL Cholesterol, Calculated 151 (<130); Magnesium 2.4 mg/dL (1.8-2.4); Potassium 4.8 mmol/L (3.5-5.1); Sodium Level 142 mmol/L (136-145)
[2018-04-06] MEDS ORDERED: REGADENOSON 0.4 MG/5 ML SYR IV ONE (08:02)
--- NOTE | 2018-04-06 08:51 | EKG ---
Test Date: 2018-04-05 Test Time: 10:56:10 Qc Analyst: FAITH MEASUREMENT RESULTS: Intervals: Rate: 70 MT: 148 QRSD: 82 QT: 376 QTc: 406 [place]: P: 50 MT: 148 QRS: -4 T: -44 INTERPRETIVE STATEMENTS: Normal sinus rhythm Nonspecific T wave abnormality Abnormal ECG Compared to ECG 11/02/2016 20:01:45 Right superior axis no longer present Possible ischemia no longer present T-wave abnormality still present Electronically Signed On 04-06-18 08:50:04 PIZZAMAKER by Miki Fisher
[2018-04-06] MEDS ORDERED: ASPIRIN EC 81 MG TAB PO SCH (09:00)
[2018-04-06] MEDS ORDERED: FUROSEMIDE 40 MG TABLET PO SCH (09:00)
[2018-04-06] MEDS: ENOXAPARIN 40 MG/0.4 ML SQ SCH (09:00)
--- NOTE | 2018-04-06 13:56 | TREADPHA ---
DX: CHEST PAIN, SHORTNESS OF BREATH Date of Study: 04/06/18 Ht: 5 6 Wt: 196 lb 0 oz Consulting Physician: ELADIO MEDICATIONS: TYLENOL, ASPIRIN, LOVENOX, LASIX HISTORY: 37 YEAR OLD MALE HERE FOR CHEST PAIN/SHORTNESS OF BREATH/CONGESTIVE HEART FAILURE. HISTORY OF ASTHMA, CARDIOMYOPATHY, IRREGULAR HEART RATE, SEIZURES, CONGESTIVE HEART FAILURE, MOON KATHERYN SYNDROME PHYSICIAL EXAMINATION: RESTING B.P.: 127/81 RESTING H.R.: 70 RESTING EKG: SINUS, NON SPECIFIC T WAVE ABNORMALITY. PROTOCOL: LEXISCAN EXERCISE TIME: 3:30 B.P. AT [place]AK STRESS: 133/81 IMPRESSION: LEXISCAN STRESS TEST PERFORMED. CARDIOLITE INJECTED PER PROTOCOL. RARE PREMATURE VENTRICULAR COMLEXES NOTED DURING/ POST STRESS TEST. DENIES ANY CHEST PAIN. SEE NUCLEAR MEDICINE REPORT. NON DIAGNOSTIC EKG LEXISCAN STRESS.
--- NOTE | 2018-04-06 14:03 | RAD REPORT ---
EXAM DESCRIPTION: NM - Rest Stress Cardiac Imaging - 04/06/2018 1:54 pm CLINICAL HISTORY: CP Chest pain. COMPARISON: No comparisons TECHNIQUE: The patient was administered approximately 10mCi of Tc 99m Sestamibi prior to resting SPE CT imaging of the heart. The patient was then administered approximately 30 mCi of Tc 99m Sestamibi f ollowing exercise or pharmacologic stress. Multiplanar SPECT images were reviewed. FINDINGS: No stress induced ischemic defect is seen to suggest stress induced ischemia. No fixed def ect is seen to suggest hibernating myocardium or scarred myocardium. The end diastolic volume is 130 ml, the end systolic volume is 72 ml, and the ejection fraction is 45 %. IMPRESSION: No stress induced ischemia.
[2018-04-06] MEDS: ACETAMINOPHEN 500 MG TAB PO PRN (14:15)
[2018-04-06 16:22] VITALS: BP 131/72; TEMP 97.8
[2018-04-06] MEDS: IPRATROPIUM BROM 0.5MG/2.5ML NEB PRN (16:36)
[2018-04-06 17:51] VITALS: O2SAT 98
--- NOTE | 2018-04-06 17:57 | P.SSS ---
Patient History Date of Service: 04/06/18 Primary Care Provider: Dr. Gonzalez; Cardiology-Dr. Fisher Reason for admission: Chest pain and shortness of breath History of Present Illness: See HPI Allergies amoxicillin trihydrate [From Amoxil] Allergy (Severe, Verified 12/01/11 20:24) Itching/Hives/Rash iodine Allergy (Severe, Verified 12/01/11 20:24) Itching loratadine [From Claritin-D 12 Hour] Allergy (Severe, Verified 12/01/11 20:24) Itching/Hives/Rash pseudoephedrine sulfate [From Claritin-D 12 Hour] Allergy (Severe, Verified 30/01 20:24) Itching/Hives/Rash epinephrine Allergy (Verified 04/05/18 14:25) Anaphylaxis meperidine [From Demerol] Allergy (Verified 04/05/18 14:25) Hives Bees Allergy (Severe, Uncoded 04/05/18 14:25) Anaphylaxis Nuts Allergy (Severe, Uncoded 04/05/18 14:27) Anaphylaxis pseudoephedr Allergy (Severe, Uncoded 04/05/18 14:27) Anaphylaxis SEAFOOD Allergy (Intermediate, Uncoded 04/05/18 14:27) Anaphylaxis Strawberries Allergy (Intermediate, Uncoded 04/05/18 14:28) Unknown pseudoephedrine Allergy (Uncoded 11/22/16 12:54) Unknown pseudoephedrine s Allergy (Uncoded 11/02/16 21:55) Unknown Home Medications: Albuterol Neb [Proventil 0.083% Neb Soln] 1 amp PRN PRN 04/05/18 Albuterol Sulfate [Proair Hfa] 1 inhaler Q4HP PRN 04/05/18 Dexlansoprazole [Kapidex] 60 mg PO DAILY 04/05/18 Furosemide [Lasix*] 40 mg PO DAILY 04/05/18 Tramadol HCl [Ultram] 50 mg PO PRN 04/05/18 - Past Medical/Surgical History Has patient received pneumonia vaccine in the past: No Diabetic: No -: Asthma -: Systolic CHF -: Cardiomyopathy -: Brett Spicer -: Seizure -: Borderline Diabetes -: Colonoscopy -: Endoscopy Psychosocial/ Personal History: Patient is . He has 1 child. 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 Asthma - Social History Smoking Status: Never smoker Alcohol use: Yes CD- Drugs: No Caffeine use: Yes Place of Residence: Home Review of Systems 10-point ROS is otherwise unremarkable Physical Examination - Vital Signs Temperature: 97.8 F Blood Pressure: 131/72 Pulse: 67 Respirations: 18 Pulse Ox (%): 98 - Physical Exam General: Alert, In no apparent distress HEENT: Atraumatic, PERRLA, Mucous membr. moist/pink, EOMI, Sclerae nonicteric Neck: Supple, 2+ carotid pulse no bruit, No LAD, Without JVD or thyroid abnormality Respiratory: Clear to auscultation bilaterally, Normal air movement Cardiovascular: Regular rate/rhythm, Normal S1 S2 Gastrointestinal: Normal bowel sounds, No tenderness Musculoskeletal: No tenderness Integumentary: No rashes Neurological: Normal gait, Normal speech, Normal strength at 5/5 x4 extr, Normal tone, Normal affect Lymphatics: No axilla or inguinal lymphadenopathy - Diagnosis (Problem(s)) (1) Atypical chest pain Current Visit: Yes Status: Acute (2) Hyperlipidemia Current Visit: Yes Status: Acute Treatment Summary: Overall during the hospital stay patient remained stable Patient was initially admitted to the hospital for atypical chest pain. Troponin x2 was negative. EKG was negative. Cardiology was consulted. Who recommended patient get a echocardiogram and stress test which were both negative for acute coronary syndrome. Patient then was discharged home under stable condition. Patient was to continue taking his medication for hyperlipidemia - Disposition Disposition: ROUTINE DISCHARGE Condition: GOOD Diet: Regular Activity: Ad roscoe
== END 2018-04-06 20:00 | disposition home or self-care (01) ==
LOC: ER 10:37 → ERHOLD 12:23 → 4TH 13:13
PROVIDERS: ADMIT Family Medicine; ATTEND Family Medicine
DX: R07.89 Other chest pain (principal); I50.22 Chronic systolic (congestive) heart failure; E78.5 Hyperlipidemia, unspecified; Z91.030 Bee allergy status; Z91.018 Allergy to other foods; Z88.0 Allergy status to penicillin; Z91.013 Allergy to seafood
CPT/HCPCS: 36415; 71045; 78452; 80048; 80061; 80076; 81003; 81015; 82550; 82553; 83735; 83880; 84439; 84443; 84484; 85025; 85610; 93005; 93017; 94640; 97163; A9500; G0378; J1650; J2270; J2785; J2930; J3475

== ENCOUNTER 2020-10-23 15:42 | Emergency (ER) | payer BC ==
--- OUTSIDE RECORDS SUMMARY | 2020-10-23 15:45 | XMS REPORT | Continuity of Care Document ---
:1980 Author Organization [facility] t Address [address] [place] [address] Care Team Providers Name Role Phone Wallace [facility] MD FERNANDO SANTOS Attending Clinician Unavailable TOM Attending Clinician Unavailable SAVANNAH Attending Clinician Unavailable VALENTIN Attending Clinician Unavailable MD FERNANDO SANTOS Admitting Clinician Unavailable SAVANNAH Admitting Clinician Unavailable Problems Condition Condition Condition Status Onset Resolution Last Treating Co mments Source Name Details Category Date Date Treatment Clinician Date Heart Heart Disease Active 2018-02 Overview: Method i failure failure [address] 00:00: g of this Hospita 00 note l might be different from the original. 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 09-09 st athy athy 00:00: Hospita 00 l Essential Essential Disease Active Met hodi hypertensi hypertensi 05-12 st on on 00:00: Hospita 00 l Asthma Asthma Disease Active Methodi 05-12 st 00:00: Hospita 00 l ED ED Disease Active Methodi (erectile (erectile 05-12 st dysfunctio dysfunctio 00:00: Ho spita n) n) 00 l SOB SOB Disease Active Methodi (shortness (shortness [address] st of breath) of breath) 00:00: Ho spita 00 l Chest pain Chest pain Disease Active M ethodi 05-12 st 00:00: Hospita 00 l CHF CHF Disease Active Methodi (congestiv (congestiv 4-02 st e heart e heart 00:00: Hospita failure) failure) 00 l 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 05-12 athy athy 00:00: Hospita secondary secondary 00 l to drug to drug Asthma Asthma Disease Active Methodi dependent dependent 05-12 st on inhaled on inhaled 00:00: Ho spita steroids steroids 00 l CAD CAD Disease Active Methodi (coronary (coronary st artery artery Hospita disease) disease) l Allergies, Adverse Reactions, Alerts Allergy Allergy Status Severity Reaction(s) Onset Inactive Treating Comm ents Source Name Type Date Date Clinician Amoxicil Propensi Active Method i rossy ty to 05-12 st adverse 00:00: Hospita reaction 00 l s to drug Ciproflo Propensi Active Method i xacin ty to 05-12 st adverse 00:00: Hospita reaction 00 l s to drug Iodine Propensi Active Methodi ty to 05-12 st adverse 00:00: Hospita reaction 00 l s to drug Lisinopr Propensi Active Method i il ty to 05-12 st adverse 00:00: Hospita reaction 00 l s to drug Losartan Propensi Active Method i ty to 05-12 st adverse 00:00: Hospita reaction 00 l s to drug Fluticas Propensi Active Method i one ty to 05-12 st Propion- adverse 00:00: Hospita Salmeter reaction 00 l ol s to drug Epinephr Propensi Active Palpitations 2015-02 Reports Methodi ine ty to 0-[address] adverse 00:00: told to Hospita reaction 00 avoid l s to epinephri drug ne due to tachycard ia when treated with epinephri ne for asthma as a child. Family History Family Member Diagnosis Comments Start Date Stop Date Source Natural father Heart disease [facility] Natural father Stroke [facility] Natural father Aneurysm [facility] Natural mother Heart disease [facility] mother Hypertension [facility] Natural mother Irritable bowel [facility] syndrome Natural sister Lymphoma [facility] Social History Social Habit Start Date Stop Date Quantity Comments Source Tobacco use and 2019-06-08 2019-06-08 Never used [facility] exposure 00:00:00 00:00:00 Hospital Alcohol intake 2019-06-08 2019-06-08 Current drinker [facility] dist 00:00:00 00:00:00 of [facility] (finding) Alcohol Comment 2018-11-17 2018-11-17 socially [facility] 00:00:00 00:00:00 Hospital Sex Assigned At [birth year] M [facility] 00:00:00 00:00:00 Hospital Smoking Status Start Date Stop Date Source Never smoker [facility] Medications Ordered Filled Start Stop Current Ordering Indication Dosage Frequency Signature Comments Components Source Medication Medication Date Date Medication? Clinician (SIG) Name Name isosorbide Yes TAKE 1 Metho di dinitrate 5-[address] (ISORDIL) 00:00: MOUTH Hospita 10 MG 00 THREE l tablet TIMES A DAY hydrALAZINE Yes TAKE 1 Meth yosi (APRESOLINE 5-[address] ) 25 MG 00:00: MOUTH Hospita tablet 00 THREE l TIMES A DAY montelukast 2019-0 Yes 10mg QD Take 10 mg Methodi (SINGULAIR) 4-[address] 10 mg 16:26: nightly. Hospita tablet 11 l albuterol Yes 2{puff} Q6H Inhale 2 M ethodi (PROAIR 4-[address] HFA,PROVENT 16:26: every 6 Hos oscar [place] 11 (six) l HFA,VENTOLI hours as N HFA) 90 needed. mcg/actuati on inhaler albuterol 0 Yes 2.5mg Q6H Take 2.5 Met hodi (ACCUNEB) 4-[address] 2.5 mg /3 16:26: nebulizati Ho spita mL (0.083 11 on every 6 l %) (six) nebulizer hours as solution needed. furosemide 2019-0 Yes 40mg QD Take 40 mg M ethodi (LASIX) 40 4-[address] mg tablet 16:26: daily. Hospit a 11 l levalbutero 2019-0 Yes 1{ampul Q4H Take 1 M ethodi l (XOPENEX) 4-28 e} ampule by st 1.25 mg/3 16:26: nebulizati Ho spita mL 11 on every 4 l nebulizer (four) solution hours as needed for wheezing. nitroglycer Yes Place Metho di in - under the st (NITROSTAT) 16:26: tongue. Hos oscar 0.4 MG SL 11 l tablet aspirin Yes 81mg QD Take 81 mg Meth yosi (ECOTRIN) 06-[address] 81 MG 16:26: daily. Hospita enteric 11 l coated tablet metoprolol 2018-02 No 50mg QD Take 1 Meth yosi succinate 11-10 tablet (50 st XL 00:00: 04:59 mg total) Hospita (TOPROL-XL) 00 :00 by mouth l 50 mg 24 hr daily. tablet SYMBICORT Yes 2{puff} Inhale 2 M ethodi 160-4.5 5-[address] mcg/actuati 00:00: needed. Hos oscar on inhaler 00 l lisinopril Yes 20mg QD Take 20 mg M ethodi (PRINIVIL,Z 5-[address] ESTRIL) 20 00:00: daily. Hospi ta mg tablet 00 l Procedures This patient has no known procedures. Plan of Care Planned Activity Planned Date Details Comments Source Future Scheduled Test COVID-19 VACCINE (1) [facility] [code = COVID-19 VACCINE (1)] Future Scheduled Test Hepatitis C screening [facility] (procedure) [code = 582569929] Future Scheduled Test INFLUENZA VACCINE [facility] [code = INFLUENZA VACCINE] Encounters Start End Encounter Admission Attending Care Care Encounter Source Date/Time Date/Time Type Type Clinicians Facility Department ID 2019-08-25 2019-08-25 Outpatient SANTOS, [facility] [id number] [place] 00:00:00 00:00:00 ABAD [address] 2019-08-01 2019-08-01 Outpatient SANTOS, [facility] [id number] [place] 00:00:00 00:00:00 ABAD [address] 2019-06-08 2019-06-08 Outpatient TRACHTENBER [facility] [id number] [place] 00:00:00 00:00:00 EL Macdonald [address] 2019-04-14 2019-04-14 Outpatient COLOMER, [facility] [id number] [place] 00:00:00 00:00:00 KRISHAN [address] 2018-11-17 2018-11-17 Outpatient TRACHTENBER [facility] [id number] [place] 00:00:00 00:00:00 EL Macdonald [address] Results Test Description Test Time Test Comments Results Result Comments Source SARS-CoV-2 (COVID-19) RNA [Presence] in Respiratory sp ecimen by 2019-08-26 11:19:32 JAJA with probe detection Test Item Value Reference Range Interpretation Comme nts SARS-CoV-2 (COVID-19) RNA [Presence] in Respiratory Not detected No t-Detected specimen by JAJA with probe detection (test code = 54164-7)
[2020-10-23] MEDS ORDERED: ONDANSETRON 4 MG/2 ML VIAL ONE (16:25)
[2020-10-23] MEDS ORDERED: NA CHLORIDE 0.9% 1,000 ML ONE (16:25)
[2020-10-23] MEDS ORDERED: METHYLPREDNISOLONE 125 MG INJ ONE (16:25)
[2020-10-23] MEDS ORDERED: DIPHENHYDRAMINE 50 MG/ML VIAL ONE (16:25)
[2020-10-23 19:26] LABS: SARS-COV-2 RT PCR NEGATIVE (NEGATIVE)
--- NOTE | 2020-10-23 19:29 | ER ---
Nurse's Notes [facility] Name: Justin Garza Age: 39 yrs Sex: Male : 1980 Arrival Date: 10/23/2020 Time: 15:43 Bed 30 Private MD: Diagnosis: Acute pharyngitis, unspecified;Allergy to seafood Presentation: 10/23 16:11 Chief complaint: Patient states: has an allergy to seafood, someone was warming up iw their lunch at work and it was fish, started to feel his throat swell up, took took two benadryl and symptoms have mildly improved but voice is still hoarse and feel like his throat is s till swollen, pt has had a bad reaction to epi pen in past, does not want epi given at this time , also states pt has been sick through the weekend. Coronavirus screen: Ebola Screen: Patient negative for fever greater than or equal to 101.5 degrees Fahrenheit, and additional compatible Ebola Virus Disease symptoms Patient denies exposure to infectious person. Patient denies travel to an Ebola-affected area in the 21 days before illness onset. No symptoms or risks identified at this time. Onset: The symptoms/episode began/occurred 1 hour(s) ago. Initial Sepsis Screen: Does the patient meet any 2 criteria? No. Patient's initial sepsis screen is negative. Does the patient have a suspected source of infection? No. Patient's initial sepsis screen is negative. Risk Assessment: Do you want to hurt yourself or someone else? Patient reports no desire to harm self or others. Onset of symptoms was October 23, 2020. 16:11 Method Of Arrival: Ambulatory iw 16:11 Acuity: ANNIE 2 iw Historical: - Allergies: 16:14 amoxicillin trihydrate; iw 16:14 Bees; iw 16:14 Demerol; iw 16:14 Epinephrine; iw 16:14 Iodine; iw 16:14 loratadine; iw 16:14 Nuts; iw 16:14 pseudoephedrine sulfate\E\; iw 16:14 SEAFOOD; iw 16:14 Strawberries; iw - PMHx: 16:14 Asthma; cardiomyopathy; CHF; GERD; Irregular heart rate; Seizures; SJS; iw - Immunization history:: Adult Immunizations up to date. - Family history:: not pertinent. - Social history:: Smoking status: Patient denies any tobacco usage or history of. - Hospitalizations: : No recent hospitalization is reported. Screenin:11 Abuse screen: Denies threats or abuse. Denies injuries from another. Nutritional ld1 screening: No deficits noted. Tuberculosis screening: No symptoms or risk factors identified. Fall Risk None identified. Assessment: 16:11 General: Appears in no apparent distress. uncomfortable, Behavior is calm, cooperative, ld1 appropriate for age. Pain: Denies pain. Neuro: Level of Consciousness is awake, alert, obeys commands, Oriented to person, place, time, situation. Cardiovascular: Capillary refill < 3 seconds Patient's skin is warm and dry. Respiratory: Reports Airway is patent Respiratory effort is even, unlabored, Respiratory pattern is regular, symmetrical, Breath sounds are clear bilaterally. GI: Abdomen is round non-distended. : No signs and/or symptoms were reported regarding the genitourinary system. EENT: No signs and/or symptoms were reported regarding the EENT system. Derm: No signs and/or symptoms reported regarding the dermatologic system. Musculoskeletal: No signs and/or symptoms reported regarding the musculoskeletal system. 16:56 Reassessment: Patient appears in no apparent distress at this time. No changes from ld1 previously documented assessment. Patient and/or family updated on plan of care and expected duration. Pain level reassessed. Patient is alert, oriented x 3, equal unlabored respirations, skin warm/dry/pink. 17:44 Reassessment: Patient appears in no apparent distress at this time. No changes from ld1 previously documented assessment. Patient and/or family updated on plan of care and expected duration. Pain level reassessed. Patient is alert, oriented x 3, equal unlabored respirations, skin warm/dry/pink. 19:04 Reassessment: Patient appears in no apparent distress at this time. No changes from ld1 previously documented assessment. Patient and/or family updated on plan of care and expected duration. Pain level reassessed. Patient is alert, oriented x 3, equal unlabored respirations, skin warm/dry/pink. Vital Signs: 16:10 BP 138 / 90; Pulse 105; Resp 18 S; Temp 98.4; Pulse Ox 100% on R/A; iw 16:11 BP 132 / 92; Pulse 106; Resp 20; Pulse Ox 97% on R/A; ld1 16:56 BP 125 / 75; Pulse 87; Resp 18; Pulse Ox 98% on R/A; ld1 17:44 BP 123 / 83; Pulse 89; Resp 18; Pulse Ox 96% on R/A; ld1 19:04 BP 121 / 84; Pulse 80; Resp 18; Pulse Ox 96% on R/A; ld1 19:41 BP 118 / 78; Pulse 90; Resp 18; Temp 98.9; Pulse Ox 99% on R/A; Pain 0/10; wg ED Course: 15:43 Patient arrived in ED. as 15:51 Tacos Coulter MD is Attending Physician. rn 16:11 Patient has correct armband on for positive identification. Placed in gown. Bed in low ld1 position. Call light in reach. Side rails up X2. traffic monitor specialist on. Pulse ox on. NIBP on. Door closed. Noise minimized. Warm blanket given. 16:11 No provider procedures requiring assistance completed. ld1 16:14 Triage completed. iw 16:14 Strep Sent. ld1 18:52 Maribel Giron FNP-C is [facility]. kb 19:43 IV discontinued. wg Administered Medications: 16:07 Drug: SOLU-Medrol (methylPrednisoLONE) 125 mg Route: IVP; Site: right antecubital; iw 17:44 Follow up: Response: No adverse reaction ld1 16:07 Drug: Benadryl (diphenhydrAMINE) 50 mg Route: IVP; Site: right antecubital; iw 17:44 Follow up: Response: No adverse reaction ld1 16:07 Drug: NS 0.9% 1000 ml Route: IV; Rate: 1000 ml; Site: right antecubital; iw 17:44 Follow up: Response: No adverse reaction; IV Status: Completed infusion; IV Intake: ld1 1000ml 16:08 Drug: Zofran (Ondansetron) 4 mg Route: IVP; Site: right antecubital; iw 17:44 Follow up: Response: No adverse reaction ld1 16:08 Not Given ( states abnormal reaction to epi that required cpr last time): rn EPINEPHrine 1mg/mL 1:1,000 0.3 mg IM once Intake: 17:44 IV: 1000ml; Total: 1000ml. ld1 Outcome: 19:28 Discharge ordered by . kb 19:42 Discharged to home wg 19:42 Condition: stable 19:42 Discharge instructions given to patient, Instructed on discharge instructions, follow up and referral plans. no drinking with medication, medication usage, Demonstrated understanding of instructions, follow-up care, medications. 19:43 Patient left the ED. wg Signatures: Maribel Giron, SECURITY ASSESSOR-C SECURITY ASSESSOR-CkRani Stanton Irene, RN RN Tacos Coulter MD MD rn Dibbern, Lauren, RN RN ld1 Gab Almaguer RN Corrections: (The following items were deleted from the chart) 18:37 16:14 Influenza Screen (A drawn and sent. ld1 EDMS 18:37 16:14 Influenza Screen (A \T\ B)+BA.LAB.BRZ drawn and sent. ld1 EDMS 18:38 16:14 CORONAVIRUS+MR.LAB.BRZ drawn and sent. ld1 EDMS
--- NOTE | 2020-10-23 19:29 | EDPHYS ---
Physician Documentation [facility] Name: Justin Garza Age: 39 yrs Sex: Male : 1980 Arrival Date: 10/23/2020 Time: 15:43 Bed 30 Private MD: ED Physician Tacos Coulter HPI: 10/23 16:08 This 39 yrs old Black Male presents to ER via Unassigned with complaints of Allergic rn Reaction, Nausea, Headache. 16:08 The patient presents with dizziness, hoarse voice, itching, Nausea . Onset: The rn symptoms/episode began/occurred today. Associated signs and symptoms: Pertinent positives: light headed, nausea, Pertinent negatives: abdominal pain, fever, rash, shortness of breath. Possible causes: Seafood. At home the patient or guardian has treated the symptoms with Benadryl. Severity of symptoms: At their worst the symptoms were moderate in the emergency department the symptoms have improved. The patient has experienced similar episodes in the past. The patient has not recently seen a physician. Patient states at work colleague eating seafood, patient states very allergic to seafood, began to feel like her throat was tightening up with itching in the back of her throat and trouble swallowing. Went to medical, given Benadryl and feels like he has improved slightly. Patient denies any recent illness and states when went to work this morning felt totally normal. No fever. Currently no shortness of breath or trouble swallowing. Says voice is hoarse. States bad reactions to epinephrine in the past, states required defibrillation. followed shortly after and states has had a hoarse voice for two or 3 days with headache congestion sore throat.. Historical: - Allergies: 16:14 amoxicillin trihydrate; iw 16:14 Bees; iw 16:14 Demerol; iw 16:14 Epinephrine; iw 16:14 Iodine; iw 16:14 loratadine; iw 16:14 Nuts; iw 16:14 pseudoephedrine sulfate\E\; iw 16:14 SEAFOOD; iw 16:14 Strawberries; iw - PMHx: 16:14 Asthma; cardiomyopathy; CHF; GERD; Irregular heart rate; Seizures; SJS; iw - Immunization history:: Adult Immunizations up to date. - Family history:: not pertinent. - Social history:: Smoking status: Patient denies any tobacco usage or history of. - Hospitalizations: : No recent hospitalization is reported. ROS: 16:08 Constitutional: Negative for fever, chills, and weight loss, Eyes: Negative for injury, rn pain, redness, and discharge, ENT: Itching and subjective swelling of the throat Neck: Negative for injury, pain, and swelling, Cardiovascular: Negative for chest pain, palpitations, and edema, Respiratory: Negative for shortness of breath, cough, wheezing, and pleuritic chest pain, Abdomen/GI: Positive for nausea Back: Negative for injury and pain, : Negative for injury, bleeding, discharge, and swelling, MS/Extremity: Negative for injury and deformity, Skin: Negative for injury, rash, and discoloration, Neuro: Negative for numbness, tingling, and seizure. Exam: 16:08 Constitutional: This is a well developed, well nourished patient who is awake, alert, rn and in no acute distress. Ambulatory Head/Face: Normocephalic, atraumatic. Eyes: Periorbital areas with no swelling, redness, or edema. ENT: No stridor, moist mucous membranes, no exudate. Hoarse voice noted. Tolerating secretions. Neck: Trachea midline, no masses palpated, and no cervical lymphadenopathy. Supple, full range of motion without nuchal rigidity, or vertebral point tenderness. No Meningismus. Cardiovascular: Tachycardic, regular. No pulse deficits. Respiratory: No wheezing. No increased work of breathing, no retractions or nasal flaring. Abdomen/GI: Soft, non-tender Skin: Warm, dry with normal turgor. Normal color with no rashes, no lesions, and no evidence of cellulitis. MS/ Extremity: Pulses equal, no cyanosis Neuro: Awake and alert, GCS 15, oriented to person, place, time, and situation. Cranial nerves II-XII grossly intact. Motor strength 5/5 in all extremities. Sensory grossly intact. Cerebellar exam normal. Normal gait. Vital Signs: 16:10 BP 138 / 90; Pulse 105; Resp 18 S; Temp 98.4; Pulse Ox 100% on R/A; iw 16:11 BP 132 / 92; Pulse 106; Resp 20; Pulse Ox 97% on R/A; ld1 16:56 BP 125 / 75; Pulse 87; Resp 18; Pulse Ox 98% on R/A; ld1 17:44 BP 123 / 83; Pulse 89; Resp 18; Pulse Ox 96% on R/A; ld1 19:04 BP 121 / 84; Pulse 80; Resp 18; Pulse Ox 96% on R/A; ld1 19:41 BP 118 / 78; Pulse 90; Resp 18; Temp 98.9; Pulse Ox 99% on R/A; Pain 0/10; wg MDM: 15:51 Patient medically screened. rn 18:55 Differential diagnosis: anaphylaxis, angioedema, bronchospasm, COVID, flu, strep. Data rn reviewed: vital signs, nurses notes, lab test result(s), and as a result, I will discharge patient. 18:56 Data interpreted: Pulse oximetry: on room air is 96 %. Interpretation: normal. kb Counseling: I had a detailed discussion with the patient and/or guardian regarding: the historical points, exam findings, and any diagnostic results supporting the discharge/admit diagnosis, lab results, the need for outpatient follow up, a family practitioner, to return to the emergency department if symptoms worsen or persist or if there are any questions or concerns that arise at home. 10/23 16:00 Order name: Strep; Complete Time: 17:02 rn 10/23 16:48 Order name: Throat Culture EDMS 10/23 15:58 Order name: IV Start; Complete Time: 16:03 rn 10/23 19:27 Order name: COVID-19/FLU A+B; Complete Time: 19:27 EDMS Administered Medications: 16:07 Drug: SOLU-Medrol (methylPrednisoLONE) 125 mg Route: IVP; Site: right antecubital; iw 17:44 Follow up: Response: No adverse reaction ld1 16:07 Drug: Benadryl (diphenhydrAMINE) 50 mg Route: IVP; Site: right antecubital; iw 17:44 Follow up: Response: No adverse reaction ld1 16:07 Drug: NS 0.9% 1000 ml Route: IV; Rate: 1000 ml; Site: right antecubital; iw 17:44 Follow up: Response: No adverse reaction; IV Status: Completed infusion; IV Intake: ld1 1000ml 16:08 Drug: Zofran (Ondansetron) 4 mg Route: IVP; Site: right antecubital; iw 17:44 Follow up: Response: No adverse reaction ld1 16:08 Not Given ( states abnormal reaction to epi that required cpr last time): rn EPINEPHrine 1mg/mL 1:1,000 0.3 mg IM once Disposition Summary: 10/23/20 19:28 Discharge Ordered Location: Home kb Condition: Stable kb Diagnosis - Acute pharyngitis, unspecified kb - Allergy to seafood kb Followup: kb - With: Private Physician - When: 2 - 3 days - Reason: Recheck today's complaints, Continuance of care, Re-evaluation by your physician Followup: kb - With: Emergency Department - When: As needed - Reason: Worsening of condition Discharge Instructions: - Discharge Summary Sheet kb - Pharyngitis, [id number] kb - Food Allergy, [id number] kb - Form - Excuse from Work, School, or Physical Activity wg Forms: - Medication Reconciliation Form kb - Thank You Letter kb - Antibiotic Education kb - Prescription Opioid Use kb Prescriptions: - Prednisone 20 mg Oral Tablet - take 1 tablet by ORAL route once daily for 5 days; 5 tablet; Refills: 0, kb Product Selection Permitted Addendum: 10/25/2020 07:06 Co-signature as Attending Physician, Tacos Coulter MD I agree with the assessment and r n plan of care. Signatures: Dispatcher [employer] Maribel Goss, PRINTED CIRCUIT BOARDS LAMINATOR-C PRINTED CIRCUIT BOARDS LAMINATOR-Ckb Ariana Jurado, RN Tacos Treadwell MD MD rn Dibbern, Lauren, RN RN ld1 Corrections: (The following items were deleted from the chart) 10/23 18:37 16:01 Influenza Screen (A \T\ B)+BA.LAB.BRZ ordered. EDMS EDMS 18:37 16:01 Influenza Screen (A ordered. EDMS EDMS 18:37 17:02 Influenza Screen (A reviewed. rn EDMS 18:38 16:03 CORONAVIRUS+MR.LAB.BRZ ordered. EDMS EDMS
[2020-10-23 20:01] VITALS: BP 118/78; TEMP 98.9; O2SAT 99
== END 2020-10-23 19:43 | disposition home or self-care (01) ==
LOC: ER 15:42
DX: J02.9 Acute pharyngitis, unspecified (principal); Z88.1 Allergy status to other antibiotic agents; Z88.5 Allergy status to narcotic agent; Z88.8 Allergy status to other drugs, medicaments and biological substances; Z91.013 Allergy to seafood; Z91.018 Allergy to other foods; Z91.030 Bee allergy status
CPT/HCPCS: 96361; 87070; 87081; 0240U; 96375; 96374; 99284; J1200; J7030; J2930; J2405

== ENCOUNTER 2021-02-12 16:21 | Emergency (ER) | payer BC ==
[2021-02-12 16:53] LABS: Absolute Lymphocytes (CBC) 1.8 K/uL (0.7-4.9); Hematocrit 39.2 % (39.6-49.0); Lymphocytes % 40.8 % (15.3-44.8); MPV 6.8 fL (7.6-11.3); RBC Red Blood Cell Count 4.65 M/uL (4.33-5.43)
[2021-02-12 17:01] LABS: Protime INR 1.14
[2021-02-12] MEDS ORDERED: ALBUTEROL 2.5 MG/3 ML NEB SOL ONE (17:16)
[2021-02-12] MEDS ORDERED: dexAMETHasone 10 MG/ML VIAL ONE (17:16)
[2021-02-12] MEDS ORDERED: IPRATROPIUM BROM 0.5MG/2.5ML ONE (17:16)
[2021-02-12 17:35] LABS: ALT/SGPT 33 U/L (12-78); AST/SGOT 18 U/L (15-37); Albumin 4.1 g/dL (3.4-5.0); Alkaline Phosphatase 52 U/L (45-117); BUN Blood Urea Nitrogen 9 mg/dL (7-18); Bicarbonate 28 mmol/L (21-32); Bilirubin Direct 0.2 mg/dL (0-0.2); Bilirubin Total 0.9 mg/dL (0.2-1.0); Glucose Level 88 mg/dL (74-106); Magnesium 2.4 mg/dL (1.8-2.4); NT PRO-BNP 201 pg/mL (<125); Potassium 3.7 mmol/L (3.5-5.1); Protein, Total 7.8 g/dL (6.4-8.2); Sodium Level 142 mmol/L (136-145); Troponin (Emerg Dept Use Only) < 0.02 ng/mL (0.0-0.045)
--- NOTE | 2021-02-12 18:09 | RAD REPORT ---
EXAM DESCRIPTION: RAD - Chest Single View - 02/12/2021 6:00 pm CLINICAL HISTORY: DYSPNEA Chest pain. COMPARISON: Chest Pa And Lat (2 Views) dated 05/13/2018; Chest Single View dated 04/05/2018; Chest Pa A nd Lat (2 Views) dated 11/22/2016; Chest Single View dated 03/20/2016 FINDINGS: Portable technique limits examination quality. The lungs are grossly clear. The heart is normal in size. No displaced fractures. IMPRESSION: No acute intrathoracic process suspected.
[2021-02-12] MEDS ORDERED: MAGNESIUM SULFATE 1 gm IVPB 1 GM/100 ML BAG IV ONE (19:02)
--- NOTE | 2021-02-12 19:45 | ER ---
Nurse's Notes [facility] Name: Justin Garza Age: 40 yrs Sex: Male : 1980 Arrival Date: 02/12/2021 Time: 16:23 Bed 12 Private MD: Diagnosis: Unspecified asthma with (acute) exacerbation Presentation: 02/12 16:28 Chief complaint: Patient states: shortness of breath, chest pain, cough and bodyaches iw for 2 weeks. Coronavirus screen: Vaccine status: Patient reports being unvaccinated. Ebola Screen: Patient negative for fever greater than or equal to 101.5 degrees Fahrenheit, and additional compatible Ebola Virus Disease symptoms Patient denies exposure to infectious person. Patient denies travel to an Ebola-affected area in the 21 days before illness onset. No symptoms or risks identified at this time. Initial Sepsis Screen: Does the patient meet any 2 criteria? No. Patient's initial sepsis screen is negative. Does the patient have a suspected source of infection? No. Patient's initial sepsis screen is negative. Risk Assessment: Do you want to hurt yourself or someone else? Patient reports no desire to harm self or others. Onset of symptoms was January 24, 2021. 16:28 Method Of Arrival: Ambulatory iw 16:28 Acuity: ANNIE 3 iw Triage Assessment: 16:30 General: Appears in no apparent distress. comfortable, Behavior is calm, cooperative. iw Pain: Complains of pain in chest Pain currently is 7 out of 10 on a pain scale. Respiratory: Reports shortness of breath cough that is. Historical: - Allergies: 16:31 amoxicillin trihydrate; iw 16:31 Bees; iw 16:31 Demerol; iw 16:31 Epinephrine; iw 16:31 Iodine; iw 16:31 loratadine; iw 16:31 Strawberries; iw 16:31 SEAFOOD; iw 16:31 pseudoephedrine sulfate\E\; iw 16:31 Nuts; iw - PMHx: 16:31 Asthma; cardiomyopathy; SJS; Seizures; Irregular heart rate; GERD; CHF; iw - Immunization history:: Adult Immunizations up to date, Client reports receiving the 2nd dose of the Covid vaccine. - Social history:: Smoking status: Patient denies any tobacco usage or history of. Screenin:32 Abuse screen: Denies threats or abuse. Nutritional screening: No deficits noted. al4 Tuberculosis screening: No symptoms or risk factors identified. Fall Risk No fall in past 12 months (0 pts). IV access (20 points). Ambulatory Aid- None/Bed Rest/Nurse Assist (0 pts). Gait- Normal/Bed Rest/Wheelchair (0 pts) Mental Status- Oriented to own ability (0 pts). Total Rivera Fall Scale indicates No Risk (0-24 pts). Assessment: 20:16 General: Appears in no apparent distress. uncomfortable, Behavior is calm, cooperative, al4 appropriate for age, Reports patient came into the ER reporting SOB and discomfort 7/10 in his legs. patient states legs are tender. patient stated symptoms started after he got over covid. patient stated he tested positive on January 24. Pain: Complains of pain in legs Pain currently is 7 out of 10 on a pain scale. Neuro: Level of Consciousness is awake, alert, obeys commands, Oriented to person, place, time, situation. Cardiovascular: Heart tones present Capillary refill < 3 seconds Patient's skin is warm and dry. Rhythm is regular. Respiratory: Airway is patent Respiratory effort is even, unlabored, Respiratory pattern is regular, symmetrical, Breath sounds with wheezes Onset: The symptoms/episode began/occurred after patient got over covid - approx 2 weeks ago, the patient has moderate shortness of breath. GI: No signs and/or symptoms were reported involving the gastrointestinal system. : No signs and/or symptoms were reported regarding the genitourinary system. EENT: No signs and/or symptoms were reported regarding the EENT system. Derm: No signs and/or symptoms reported regarding the dermatologic system. Musculoskeletal: Capillary refill < 3 seconds, Reports tenderness in both legs. legs are 4/5 strength. skin warm, pink, dry. 20:20 Reassessment: waiting on medication administration to be completed before discharge. al4 21:23 Reassessment: No changes from previously documented assessment. Patient and/or family al4 updated on plan of care and expected duration. Pain level reassessed. Patient is alert, oriented x 3, equal unlabored respirations, skin warm/dry/pink. Vital Signs: 16:28 BP 132 / 103; Pulse 83; Resp 22; Temp 98.3; Pulse Ox 99% ; Weight 89.81 kg; Height 5 iw ft. 6 in. (167.64 cm); Pain 7/10; 18:23 BP 142 / 85; Pulse 90; Resp 20; Temp 98.7; Pulse Ox 100% ; Pain 0/10; sv1 20:20 BP 120 / 89; Pulse 93; Resp 15; Pulse Ox 96% ; Pain 7/10; al4 21:32 BP 123 / 79; Pulse 90; Resp 20 S; Pulse Ox 94% on R/A; al4 16:28 Body Mass Index 31.96 (89.81 kg, 167.64 cm) iw ED Course: 16:23 Patient arrived in ED. as 16:30 Triage completed. iw 16:30 Arm band placed on right wrist. iw 16:44 Easton Galvez NP is PHCP. pm1 16:44 Jordon Bermudez MD is Attending Physician. pm1 16:50 Inserted saline lock: 20 gauge in right antecubital area, using aseptic technique. gd Blood collected. 16:50 Initial lab(s) drawn, by me, sent to lab. gd 17:08 Ariana Jurado RN is Primary Nurse. iw 18:00 XRAY Chest (1 view) In Process Unspecified. EDMS 19:15 Primary Nurse role handed off by Ariana Jurado RN mw2 21:22 Kalyan Garcia is Primary Nurse. al4 21:32 No provider procedures requiring assistance completed. IV discontinued, intact, al4 bleeding controlled, No redness/swelling at site. Pressure dressing applied. 21:33 Patient has correct armband on for positive identification. al4 Administered Medications: 17:29 Drug: Albuterol - atroVENT (ipratropium) (3:1) (2.5 mg - 0.5 mg) 3 ml Route: Nebulizer; iw 18:24 Follow up: Response: No adverse reaction; Wheezing diminished sv1 17:30 Drug: Decadron - Dexamethasone 10 mg Route: IVP; Site: right antecubital; iw 19:07 Drug: Magnesium Sulfate 1 grams Route: IVPB; Infused Over: 1 hrs; Site: right sv1 antecubital; 21:23 Follow up: Response: No adverse reaction; IV Status: Completed infusion al4 Outcome: 19:44 Discharge ordered by . pm1 21:32 Discharged to home ambulatory, with ride al4 21:32 Condition: stable 21:32 Discharge instructions given to patient, friend, Instructed on discharge instructions, follow up and referral plans. medication usage, Demonstrated understanding of instructions, follow-up care, medications, Prescriptions given X 2. 21:34 Patient left the ED. al4 Signatures: Dispatcher [employer] Rani Barber Irene, RN RN iw Easton Galvez, CIVILIAN TECHNICIAN CIVILIAN TECHNICIAN pm1 Memo Chau mw2 Flex [place] Kalyan Garcia al4 Brett Mortensen RN RN sv1 Corrections: (The following items were deleted from the chart) 16:36 16:28 Chief complaint: Patient states: shortness of breath, cough and bodyaches for 2 iw weeks iw 17:02 17:01 Initial lab(s) drawn, by me, sent to lab. gd 21:34 20:16 Respiratory: Airway is patent Respiratory effort is even, unlabored, Respiratory al4 pattern is regular, symmetrical, Breath sounds are clear bilaterally. al4 02/13 03:26 02/12 20:16 Respiratory: Airway is patent Respiratory effort is even, unlabored, al4 Respiratory pattern is regular, symmetrical, Breath sounds are clear bilaterally. Onset: The symptoms/episode began/occurred after patient got over covid , the patient has moderate shortness of breath al4 02/13 03:26 02/12 20:16 Respiratory: Airway is patent Respiratory effort is even, unlabored, al4 Respiratory pattern is regular, symmetrical, Breath sounds with wheezes Onset: The symptoms/episode began/occurred after patient got over covid , the patient has moderate shortness of breath al4
--- NOTE | 2021-02-12 19:46 | EDPHYS ---
Physician Documentation [facility] Name: Justin Garza Age: 40 yrs Sex: Male : 1980 Arrival Date: 02/12/2021 Time: 16:23 Bed 12 Private MD: RODOLFO Physician Jordon Bermudez HPI: 02/12 16:33 This 40 yrs old Black Male presents to ER via Ambulatory with complaints of Breathing pm1 Difficulty, Pain All Over. 16:33 The patient has shortness of breath at rest. Onset: The symptoms/episode began/occurred pm1 2 week(s) ago. Duration: The symptoms are continuous. The patient's shortness of breath is aggravated by covid, is alleviated by nebulizer treatment, once the effect of the breathing treatment runs out his shortness of breath returns. Associated signs and symptoms: Pertinent positives: chest pain, bodyaches, Pertinent negatives: fever. Severity of symptoms: in the emergency department the symptoms are worse. The patient has experienced similar episodes in the past, a few times. Historical: - Allergies: 16:31 amoxicillin trihydrate; iw 16:31 Bees; iw 16:31 Demerol; iw 16:31 Epinephrine; iw 16:31 Iodine; iw 16:31 loratadine; iw 16:31 Strawberries; iw 16:31 SEAFOOD; iw 16:31 pseudoephedrine sulfate\E\; iw 16:31 Nuts; iw - PMHx: 16:31 Asthma; cardiomyopathy; SJS; Seizures; Irregular heart rate; GERD; CHF; iw - Immunization history:: Adult Immunizations up to date, Client reports receiving the 2nd dose of the Covid vaccine. - Social history:: Smoking status: Patient denies any tobacco usage or history of. ROS: 16:33 Abdomen/GI: Negative for abdominal pain, nausea, vomiting, diarrhea, and constipation, pm1 Back: Negative for injury and pain, MS/Extremity: Negative for injury and deformity, Skin: Negative for injury, rash, and discoloration, Neuro: Negative for headache, weakness, numbness, tingling, and seizure. 16:33 Constitutional: Positive for body aches, Negative for fever. 16:33 Cardiovascular: Positive for chest pain, Negative for palpitations. 16:33 Respiratory: Positive for shortness of breath, wheezing. 16:33 All other systems are negative. Exam: 16:33 Constitutional: This is a well developed, well nourished patient who is awake, alert, pm1 and in no acute distress. Head/Face: Normocephalic, atraumatic. 16:33 Back: No spinal tenderness. No costovertebral tenderness. Full range of motion. Skin: Warm, dry with normal turgor. Normal color with no rashes, no lesions, and no evidence of cellulitis. MS/ Extremity: Pulses equal, no cyanosis. Neurovascular intact. Full, normal range of motion. 16:33 Cardiovascular: Exam negative for acute changes, Rate: normal, Rhythm: regular, Pulses: no pulse deficits are appreciated, Heart sounds: normal, Edema: is not appreciated. 16:33 Respiratory: the patient does not display signs of respiratory distress, Respirations: normal, Breath sounds: wheezing: expiratory is heard diffusely. 16:33 Abdomen/GI: Inspection: abdomen appears normal, Palpation: abdomen is soft and non-tender, in all quadrants. 16:33 Neuro: Exam negative for acute changes, Orientation: is normal, Mentation: is normal, Motor: is normal, moves all fours. Vital Signs: 16:28 BP 132 / 103; Pulse 83; Resp 22; Temp 98.3; Pulse Ox 99% ; Weight 89.81 kg; Height 5 iw ft. 6 in. (167.64 cm); Pain 7/10; 18:23 BP 142 / 85; Pulse 90; Resp 20; Temp 98.7; Pulse Ox 100% ; Pain 0/10; sv1 20:20 BP 120 / 89; Pulse 93; Resp 15; Pulse Ox 96% ; Pain 7/10; al4 21:32 BP 123 / 79; Pulse 90; Resp 20 S; Pulse Ox 94% on R/A; al4 16:28 Body Mass Index 31.96 (89.81 kg, 167.64 cm) iw MDM: 16:53 Patient medically screened. pm1 19:44 Data reviewed: vital signs. Data interpreted: Pulse oximetry: on room air is 100 %. pm1 Interpretation: normal. Counseling: I had a detailed discussion with the patient and/or guardian regarding: the historical points, exam findings, and any diagnostic results supporting the discharge/admit diagnosis, lab results, radiology results, the need for outpatient follow up, to return to the emergency department if symptoms worsen or persist or if there are any questions or concerns that arise at home. 02/12 16:32 Order name: Basic Metabolic Panel; Complete Time: 17:35 iw 02/12 16:32 Order name: CBC with Diff; Complete Time: 17:26 iw 02/12 16:32 Order name: LFT's; Complete Time: 17:35 iw 02/12 16:32 Order name: Magnesium; Complete Time: 17:35 iw 02/12 16:32 Order name: NT PRO-BNP; Complete Time: 17:35 iw 02/12 16:32 Order name: PT-INR; Complete Time: 17:26 iw 02/12 16:32 Order name: Troponin (emerg Dept Use Only); Complete Time: 17:35 iw 02/12 16:32 Order name: XRAY Chest (1 view); Complete Time: 18:13 iw 02/12 16:32 Order name: EKG; Complete Time: 16:33 iw 02/12 16:32 Order name: Cardiac monitoring; Complete Time: 17:04 iw 02/12 16:32 Order name: EKG - Nurse/Tech; Complete Time: 17:04 iw 02/12 16:32 Order name: IV Saline Lock; Complete Time: 17:03 iw 02/12 16:32 Order name: Labs collected and sent; Complete Time: 17:03 iw Administered Medications: 17:29 Drug: Albuterol - atroVENT (ipratropium) (3:1) (2.5 mg - 0.5 mg) 3 ml Route: Nebulizer; iw 18:24 Follow up: Response: No adverse reaction; Wheezing diminished sv1 17:30 Drug: Decadron - Dexamethasone 10 mg Route: IVP; Site: right antecubital; iw 19:07 Drug: Magnesium Sulfate 1 grams Route: IVPB; Infused Over: 1 hrs; Site: right sv1 antecubital; 21:23 Follow up: Response: No adverse reaction; IV Status: Completed infusion al4 Disposition: 02/13 08:49 Co-signature as Attending Physician, Jordon Bermudez MD I agree with the assessment and alvarez plan of care. Chart complete. Disposition Summary: 02/12/21 19:44 Discharge Ordered Location: Home pm1 Problem: new pm1 Symptoms: have improved pm1 Condition: Stable pm1 Diagnosis - Unspecified asthma with (acute) exacerbation pm1 Followup: pm1 - With: Emergency Department - When: As needed - Reason: Worsening of condition Followup: pm1 - With: Private Physician - When: 2 - 3 days - Reason: Recheck today's complaints, Continuance of care, Re-evaluation by your physician Discharge Instructions: - Discharge Summary Sheet pm1 - Asthma, Adult pm1 Forms: - Medication Reconciliation Form pm1 - Thank You Letter pm1 - Antibiotic Education pm1 - Prescription Opioid Use pm1 Prescriptions: - Ventolin HFA 90 mcg/actuation Inhalation HFA aerosol inhaler - inhale 2 puff by INHALATION route every 4-6 hours As needed; 1 Inhaler; pm1 Refills: 0, Product Selection Permitted - Prednisone 20 mg Oral Tablet - take 3 tablets by ORAL route once daily for 5 days; 15 tablet; Refills: 0, pm1 Product Selection Permitted Signatures: Dispatcher [employer] EDJordon Tinajero MD MD cha Williams, Irene, RN RN iw Marinas, Patrick, NP [employer]ER pm1 Brett Mortensen RN RN sv1 Kalyan Garcia4
[2021-02-12 21:53] VITALS: TEMP 98.7
[2021-02-12 21:58] VITALS: BP 123/79; O2SAT 94
--- NOTE | 2021-02-13 11:17 | EKG ---
Test Date: 2021-02-12 Test Time: 17:14:02 Senior Executive Assistant: MOLINA MEASUREMENT RESULTS: Intervals: Rate: 86 OR: 136 QRSD: 80 QT: 386 QTc: 461 Hewitt: P: 88 OR: 136 QRS: 2 T: -52 INTERPRETIVE STATEMENTS: Normal sinus rhythm Possible Anterior infarct, age undetermined T wave abnormality, consider inferolateral ischemia Abnormal ECG Compared to ECG 04/05/2018 18:36:35 Myocardial infarct finding now present Sinus tachycardia no longer present Ventricular premature complex(es) no longer present T-wave abnormality still present Possible ischemia still present Electronically Signed On 02-13-21 11:14:13 ACCOUNT MANAGER [employer] by Isaac Lucero
== END 2021-02-12 21:34 | disposition home or self-care (01) ==
LOC: ER 16:21
DX: J45.901 Unspecified asthma with (acute) exacerbation (principal); Z88.1 Allergy status to other antibiotic agents; Z88.5 Allergy status to narcotic agent; Z88.8 Allergy status to other drugs, medicaments and biological substances; Z91.013 Allergy to seafood; Z91.018 Allergy to other foods; Z91.030 Bee allergy status
CPT/HCPCS: 96365; 93005; 85025; 80048; 36415; 83735; 85610; 80076; 84484; 83880; 71045; 94640; 96375; 99284; 96366; J3475; J1100

== ENCOUNTER 2022-03-26 19:40 | Emergency (ER) | payer BC ==
--- OUTSIDE RECORDS SUMMARY | 2022-03-26 20:03 | XMS REPORT | Continuity of Care Document ---
:1980 Author Organization [facility] t Address [address] [place] [address] Care Team Providers Name Role Phone Wallace Foster DIEZ Primary Care Physician Problems Condition Condition Condition Status Onset Resolution Last Treating Co mments Source Name Details Category Date Date Treatment Clinician Date Heart Heart Disease Active 2018-02 Overview: Method i failure failure [address] 00:00: g of this [facility] 00 note l might be different from the original. Added automatic ally from request for surgery [id number] Idiopathic Idiopathic Disease Active M ethodi cardiomyop cardiomyop 09-09 00:00: Hospita 00 l Essential Essential Disease Active Met hodi hypertensi hypertensi 05-12 st on on 00:00: Hospita 00 l Asthma Asthma Disease Active [facility] 05-12 st 00:00: Hospita 00 l ED ED Disease Active [facility] (erectile (erectile 05-12 dysfunctio dysfunctio 00:00: Ho spita n) n) 00 l SOB SOB Disease Active [facility] (shortness (shortness 05-12 st of breath) of breath) 00:00: Ho spita 00 l Chest pain Chest pain Disease Active 2019- M ethodi 05-12 st 00:00: Hospita 00 l CHF CHF Disease Active [facility] (congestiv (congestiv 05-12 st e heart e heart 00:00: Hospita [...] ents Source Name Type Date Date Clinician Fluticas Propensi Active Method i one ty to 05-12 st Propion- adverse 00:00: Hospita Salmeter reaction 00 l ol s to drug Amoxicil Propensi Active Method i rossy ty [...] Hospita reaction 00 l s to drug Epinephr Propensi Active Palpitations 2015-02 Reports Methodi ine ty to 0-[address] adverse 00:00: told to Hospita reaction 00 avoid l s to epinephri drug ne due to tachycard ia when treated with epinephri ne for asthma as a child. Family History Family Member Diagnosis Comments Start Date Stop Date Source Natural father Heart disease [facility] Natural father Stroke [facility] Natural father Aneurysm [facility] Natural mother Heart disease [facility] Natural mother [facility]pertension [facility] Natural mother Irritable bowel [facility] syndrome Natural sister Lymphoma [facility] Social History Social Habit Start Date Stop Date Quantity Comments Source Tobacco use and 2019-06-08 2019-06-08 Never used [facility] exposure 00:00:00 00:00:00 Hospital Alcohol intake 2019-06-08 2019-06-08 Current drinker [facility] dist 00:00:00 00:00:00 of [facility] (finding) Alcohol Comment 2018-11-17 2018-11-17 socially [facility] 00:00:00 00:00:00 Hospital Sex Assigned At [birth year] M [facility] 00:00:00 00:00:00 Hospital Smoking Status Start Date Stop Date Source Never smoker [facility] Medications Ordered Filled Start Stop Current Ordering Indication Dosage Frequency Signature Comments Components Source Medication Medication Date Date Medication? Clinician (SIG) Name Name isosorbide 2019-0 Yes TAKE 1 Metho di dinitrate 5-[address] (ISORDIL) 00:00: [facility]OUTH [facility]osp[facility] 10 MG 00 THREE l tablet TIMES A DAY hydrALAZINE 2019-0 Yes TAKE 1 Meth yosi (APRESOLINE 5-[address] ) 25 MG 00:00: MOUTH [facility]ospita tablet 00 THREE l TIMES A DAY isosorbide 2019-0 Yes TAKE 1 Metho di dinitrate 5-[address] (ISORDIL) 00:00: MOUTH [facility]ospita 10 MG 00 THREE l tablet TIMES A DAY hydrALAZINE 2019-0 Yes TAKE 1 Meth yosi (APRESOLINE 5-[address] ) 25 MG 00:00: MOUTH [facility]ospita tablet 00 THREE l TIMES A DAY montelukast 2019-0 Yes 10mg QD Take 10 mg [facility] (SINGULAIR) 4-[address] 10 mg 16:26: nightly. Hospita tablet 11 l albuterol 2019-0 Yes 2{puff} Q6H Inhale 2 M ethodi (PROAIR 4-[address] HFA,PROVENT 16:26: every 6 Hos [place] (six) l HFA,VENTOLI hours as N HFA) 90 needed. mcg/actuati on inhaler albuterol 2019-0 Yes 2.5mg Q6H Take 2.5 Met hodi [...] solution hours as needed for wheezing. nitroglycer 2019-[address] Metho di in 06-[address] (NITROSTAT) 16:26: tongue. Hos oscar 0.4 MG SL 11 l tablet aspirin 2020-0 Yes 81mg QD Take 81 mg Meth yosi (ECOTRIN) 06-[address] 81 MG 16:26: daily. Hospita enteric 11 l coated tablet montelukast 2019-0 Yes 10mg QD Take 10 mg [facility] (SINGULAIR) 06-[address] 10 mg 11:26: nightly. Hospita tablet 11 l albuterol 2019-0 Yes 2{puff} Q6H Inhale 2 M ethodi (PROAIR - puffs st HFA,PROVENT 11:26: every 6 Hos [place] (six) l HFA,VENTOLI hours as N HFA) 90 needed. mcg/actuati on inhaler albuterol 2019-0 Yes 2.5mg Q6H Take 2.5 Met hodi (ACCUNEB) - mg by st 2.5 mg /3 11:26: nebulizati Ho spita mL (0.083 11 on every 6 l %) (six) nebulizer hours as solution needed. furosemide 2020-0 Yes 40mg QD Take 40 mg M ethodi (LASIX) 40 06-[address] mg tablet 11:26: daily. Hospit a 11 l levalbutero 2020-0 Yes 1{ampul Q4H Take 1 M ethodi l (XOPENEX) 06-07 e} ampule by st 1.25 mg/3 11:26: nebulizati Ho spita mL 11 on every 4 l nebulizer (four) solution hours as needed for wheezing. nitroglycer 2019-[address] Metho di in 06-[address] (NITROSTAT) 11:26: tongue. Hos oscar 0.4 MG SL 11 l tablet aspirin 2020-0 Yes 81mg QD Take 81 mg Meth yosi (ECOTRIN) - by mouth st 81 MG 11:26: daily. Hospita enteric 11 l coated tablet metoprolol 2018-02 2020- No 50mg QD Take 1 Meth yosi succinate 0-01 11-10 tablet (50 st XL 00:00: 04:59 mg total) Hospita (TOPROL-XL) 00 :00 by mouth l 50 mg 24 hr daily. tablet SYMBICORT 2019-0 Yes 2{puff} Inhale 2 M ethodi 160-4.5 5-[address] mcg/actuati 00:00: needed. Hos oscar on inhaler 00 l SYMBICORT 2019-0 Yes 2{puff} Inhale 2 M ethodi 160-4.5 5-[address] mcg/actuati 00:00: needed. Hos oscar on inhaler 00 l lisinopril 2019-0 Yes 20mg QD Take 20 mg M ethodi (PRINIVIL,Z 5-[address] ESTRIL) 20 00:00: daily. Hospi ta mg tablet 00 l lisinopril 2019-0 Yes 20mg QD Take 20 mg M ethodi (PRINIVIL,Z 5-[address] ESTRIL) 20 00:00: daily. Hospi ta mg tablet 00 l Procedures This patient has no known procedures. Plan of Care Planned Activity Planned Date Details Comments Source Future Scheduled 2022-03-25 COVID-19 VACCINE (#1) [facility] Hospital Test 09:43:08 [code = COVID-19 VACCINE (#1)] Future Scheduled 2022-03-25 Pneumococcal Vaccine: [facility] Hospital Test 09:43:08 Pediatrics (0 to 5 Years) and At-Risk Patients (6 to 64 Years) (1 - PCV) [code = Pneumococcal Vaccine: Pediatrics (0 to 5 Years) and At-Risk Patients (6 to 64 Years) (1 - PCV)] Future Scheduled 2022-03-25 Hepatitis C screening [facility] Hospital Test 09:43:08 (procedure) [code = 748229248] Future Scheduled 2022-03-25 INFLUENZA VACCINE Method [facility] Test 09:43:08 [code = INFLUENZA VACCINE] Future Scheduled COVID-19 VACCINE (1) [facility] Test [code = COVID-19 VACCINE (1)] Future Scheduled Hepatitis C screening [facility] Test (procedure) [code = 331321796] Future Scheduled INFLUENZA VACCINE Method [facility] Hospital Test [code = INFLUENZA VACCINE] Results This patient has no known results.
[2022-03-26] MEDS ORDERED: LEVALBUTEROL 1.25 MG/3 ML NEB ONE (21:11)
[2022-03-26] MEDS ORDERED: METHYLPREDNISOLONE 125 MG INJ ONE (21:11)
[2022-03-26] MEDS ORDERED: FAMOTIDINE 20 MG/2 ML VIAL IV ONE (21:12)
[2022-03-26] MEDS ORDERED: ONDANSETRON 4 MG/2 ML VIAL ONE (21:12)
[2022-03-26 21:17] LABS: Absolute Lymphocytes (CBC) 2.2 K/uL (0.7-4.9); Hematocrit 39.2 % (39.6-49.0); Lymphocytes % 23.1 % (15.3-44.8); MCV 85.9 fL (80-100); MPV 8.2 fL (7.6-11.3); RBC Red Blood Cell Count 4.57 M/uL (4.33-5.43)
[2022-03-26 21:23] LABS: Protime INR 1.47
[2022-03-26 21:41] LABS: Albumin 3.8 g/dL (3.4-5.0); Bilirubin Direct 0.4 mg/dL (0-0.2); Bilirubin Total 1.4 mg/dL (0.2-1.0); Protein, Total 7.5 g/dL (6.4-8.2)
[2022-03-26 21:42] LABS: Magnesium 2.5 mg/dL (1.6-2.4); Potassium 4.1 mmol/L (3.5-5.1)
--- NOTE | 2022-03-26 21:54 | RAD REPORT ---
EXAM DESCRIPTION: RAD - Chest Single View - 03/26/2022 9:37 pm CLINICAL HISTORY: SOB Chest pain. COMPARISON: Abdomen 1 View (KUB) dated 03/14/2022; Chest Single View dated 02/12/2021; Chest Pa And Lat (2 Views) dated 05/13/2018; Chest Single View dated 04/05/2018 FINDINGS: Portable technique limits examination quality. Mild interstitial pulmonary edema. The heart is mildly enlarged in size. No displaced fractures. IMPRESSION: Mild CHF.
[2022-03-26 22:26] LABS: SARS-COV-2 RT PCR POSITIVE (NEGATIVE)
--- NOTE | 2022-03-26 22:32 | RAD REPORT ---
EXAM DESCRIPTION: US - Abdomen Exam Limited - 03/26/2022 10:27 pm CLINICAL HISTORY: ABD PAIN COMPARISON: <Comparisons> FINDINGS: The gallbladder demonstrates no gallstones. No pericholecystic fluid or gallbladder wall t hickening. The common bile duct is normal measuring 2 mm. The liver demonstrates no findings of intrahepatic biliary dilatation. IMPRESSION: Unremarkable examination.
[2022-03-26] MEDS ORDERED: CEFTRIAXONE 1000 MG/VIAL ONE (23:37)
[2022-03-26] MEDS ORDERED: FUROSEMIDE 20 MG/ 2ML VIAL ONE (23:37)
[2022-03-26] MEDS ORDERED: AZITHROMYCIN 500 MG INJ IVPB ONE (23:38)
[2022-03-26] MEDS ORDERED: NA CHLORIDE 0.9% 250 ML ONE (23:38)
[2022-03-27] MEDS ORDERED: ONDANSETRON 4 MG/2 ML VIAL ONE (00:01)
[2022-03-27] MEDS ORDERED: ACETAMINOPHEN 500 MG TAB ONE (00:01)
[2022-03-27] MEDS ORDERED: LIDOCAINE VISCOUS 2% SOLN 15 ML UDC ONE (00:20)
--- NOTE | 2022-03-27 01:05 | EDPHYS ---
Physician Documentation [facility] Name: Justin Garza Age: 41 yrs Sex: Male : 1980 Arrival Date: 03/26/2022 Time: 19:53 Bed 2 Private MD: ED Physician Jordon Bermudez HPI: 03/26 21:00 This 41 yrs old Black Male presents to ER via Wheelchair with complaints of Breathing cp Difficulty. 21:00 The patient has shortness of breath at rest. cp 21:00 Onset: The symptoms/episode began/occurred gradually, and became worse today. Duration: cp The symptoms are continuous, and are steadily getting worse. Associated signs and symptoms: Pertinent positives: productive cough, nausea, vomiting, abdominal pain, Pertinent negatives: diaphoresis, fever. Severity of symptoms: in the emergency department the symptoms are unchanged despite home interventions. Historical: - Allergies: 03/27 05:53 pseudoephedrine sulfate\\E\\; jb4 05:53 amoxicillin trihydrate; jb4 05:53 Epinephrine; jb4 05:53 Iodine; jb4 05:53 loratadine; jb4 05:53 Bees; jb4 05:53 Strawberries; jb4 05:53 Nuts; jb4 05:53 SEAFOOD; jb4 05:53 Demerol; jb4 05:53 Pseudoephedrine; jb4 05:53 Amoxicillin; jb4 - Home Meds: 05:53 Proventil Inhl [Active]; Singulair Oral [Active]; tramadol 50 mg Oral tab 1 tab for jb4 Pain [Active]; amlodipine 5 mg tab 1 tab once daily [Active]; Dexilant 60 mg Oral CpDB 1 cap for Heartburn [Active]; Lasix 40 mg Oral tab 1 tab once daily [Active]; Albuterol Inhl [Active]; - PMHx: 03/26 20:49 Asthma; cardiomyopathy; CHF; GERD; Seizures; SJS; Irregular heart rate; kl - Immunization history:: Adult Immunizations unknown. - Social history:: Smoking status: unknown. ROS: 21:00 Constitutional: Positive for chills, poor PO intake, Negative for fever. cp 21:00 Eyes: Negative for injury, pain, redness, and discharge. cp 21:00 ENT: Negative for drainage from ear(s), ear pain, sore throat, difficulty swallowing, difficulty handling secretions. 21:00 Cardiovascular: Negative for chest pain, edema. 21:00 Respiratory: Positive for cough, "sounds productive", shortness of breath, at rest. 21:00 Abdomen/GI: Positive for abdominal pain, nausea and vomiting, anorexia, Negative for diarrhea, hematemesis. 21:00 : Negative for urinary symptoms. 21:00 Neuro: Positive for weakness, Negative for altered mental status, dizziness, headache. 21:00 All other systems are negative. Exam: 21:00 ECG was reviewed by the Attending Physician. cp 21:05 Constitutional: The patient appears alert, awake, non-diaphoretic, non-toxic, well cp developed, well nourished, in obvious distress, mildly distressed, overweight 21:05 Head/Face: Normocephalic, atraumatic. cp 03/27 01:03 ECG was reviewed by the Attending Physician. cp Vital Signs: 03/26 20:44 Resp 32 S; Temp 98.1; Pulse Ox 98% on R/A; kl 22:30 BP 99 / 74; Pulse 116; Resp 28; Pulse Ox 94% on R/A; jb4 23:20 BP 98 / 82; Pulse 116; Resp 28; Pulse Ox 97% on R/A; jb4 03/27 00:42 BP 92 / 65; Pulse 112; Resp 19; Pulse Ox 97% on 30% BiPAP; jb4 01:30 BP 101 / 79; Pulse 102; Resp 19; Pulse Ox 95% on 30% BiPAP; jb4 02:30 BP 107 / 82; Pulse 99; Resp 20; Pulse Ox 95% on 30% BiPAP; jb4 02:39 Weight 99.79 kg; mw2 03:30 BP 104 / 78; Pulse 100; Resp 24; Pulse Ox 94% on 30% BiPAP; jb4 04:00 BP 104 / 84; Pulse 100; Resp 22; Pulse Ox 95% on 30% BiPAP; jb4 05:00 BP 97 / 82; Pulse 96; Resp 22; Pulse Ox 96% on 30% BiPAP; jb4 06:30 BP 99 / 63; Pulse 101; Resp 24; Pulse Ox 96% on 2 lpm NC; jb4 07:24 BP 95 / 71; Pulse 97; Resp 16; Pulse Ox 96% on BiPAP; sg5 MDM: 03/26 20:53 Patient medically screened. [facility] 03/27 03:35 Data reviewed: vital signs, nurses notes, lab test result(s), EKG, radiologic studies, cp CT scan, plain films, ultrasound. 03:35 ED course: VS noted. Discussed care with DR Barton, commercial project manager \\T\\ [facility] in the [facility], will accept patient as transfer. 03/26 20:57 Order name: Basic Metabolic Panel 03/26 20:57 Order name: CBC with Diff 03/26 20:57 Order name: LFT's 03/26 20:57 Order name: Magnesium 03/26 20:57 Order name: NT PRO-BNP 03/26 20:57 Order name: PT-INR 03/26 20:57 Order name: Troponin HS 03/26 20:57 Order name: COVID-19/FLU A+B 03/26 20:57 Order name: Blood Culture Adult (2) 03/26 20:57 Order name: Lactate w/ 2H reflex if indic. 03/26 21:18 Order name: CBC with Automated Diff; Complete Time: 21:34 EDMS 03/26 21:34 Interpretation: Normal except: HGB 12.9; HCT 39.2. 03/26 21:24 Order name: Protime (+INR); Complete Time: 21:34 EDMS 03/26 21:34 Interpretation: Abnormal: PT 16.2. 03/26 21:42 Order name: Basic Metabolic Panel; Complete Time: 22:05 EDMS 03/26 22:05 Interpretation: GLUC 123; BUN 24; CRE 2.24; GFR 37. 03/26 21:42 Order name: Liver (Hepatic) Function; Complete Time: 22:05 EDMS 03/26 22:05 Interpretation: AST 64; ALT 146; BILIT 1.4; BILID 0.4; GLOB 3.7; A/G 1.0. 03/26 20:57 Order name: XRAY Chest (1 view) 03/26 21:42 Order name: Troponin High Sensitivity; Complete Time: 22:05 EDMS 03/27 01:52 Interpretation: Reviewed. 03/26 21:42 Order name: NT PRO-BNP; Complete Time: 22:05 EDUT 03/27 01:51 Interpretation: Abnormal: NT PRO-BNP 4904. 03/26 21:42 Order name: Magnesium; Complete Time: 22:05 EDMS 03/26 21:42 Order name: Lactate w/ 2H reflex if indic.; Complete Time: 22:05 EDMS 03/26 22:05 Interpretation: Abnormal: LAC 2.8. 03/26 21:56 Order name: RAD; Complete Time: 22:05 EDMS 03/26 22:06 Interpretation: Report reviewed. 03/26 22:07 Order name: CT Chest Abdomen Pelvis W/O Contrast 03/26 22:08 Order name: US Abdomen Limited: gallbladder 03/26 22:26 Order name: COVID-19/FLU A+B; Complete Time: 22:39 EDMS 03/26 22:39 Interpretation: Reviewed. 03/26 22:33 Order name: US; Complete Time: 22:39 EDMS 03/26 22:39 Interpretation: Report reviewed. 03/26 23:09 Order name: ABG 03/27 00:46 Order name: Troponin High Sensitivity 03/27 01:00 Order name: Lactate Sepsis 2 HR Follow-up; Complete Time: 01:02 EDMS 03/27 01:19 Order name: ABG Arterial Blood Gas; Complete Time: 01:23 EDMS 03/27 01:51 Interpretation: Reviewed. 03/27 01:31 Order name: Troponin High Sensitivity; Complete Time: 01:50 EDMS 03/27 01:51 Interpretation: Reviewed. 03/27 06:44 Order name: Blood Culture EDUT 03/26 20:57 Order name: EKG; Complete Time: 20:58 03/26 20:57 Order name: Cardiac monitoring; Complete Time: 21:39 03/26 20:57 Order name: EKG - Nurse/Tech; Complete Time: 21:39 03/26 20:57 Order name: IV Saline Lock; Complete Time: 21:39 03/26 20:57 Order name: Labs collected and sent; Complete Time: 21:39 03/26 20:57 Order name: O2 Per Protocol; Complete Time: 21:38 03/26 20:57 Order name: O2 Sat Monitoring; Complete Time: 21:38 03/27 00:46 Order name: EKG; Complete Time: 00:46 03/27 00:46 Order name: EKG - Nurse/Tech; Complete Time: 01:39 cp EC/14 21:00 Rate is 119 beats/min. Rhythm is regular. VA interval is normal. QRS interval is cp normal. QT interval is normal. Interpreted by me. Reviewed by me. 03/27 01:03 Rate is 114 beats/min. Rhythm is regular. QRS interval is normal at 92 msec. QT cp interval is prolonged at 462 msec. Interpreted by me. Reviewed by me. Administered Medications: 03/26 21:24 Drug: Zofran (Ondansetron) 4 mg Route: IVP; Site: right antecubital; jb4 21:24 Drug: Pepcid (famotidine) 20 mg Route: IVP; Site: right antecubital; jb4 21:24 Drug: SOLU-Medrol (methylPrednisoLONE) 125 mg Route: IVP; Site: right antecubital; jb4 21:24 Drug: Xopenex (levalbuterol) (3) 1.25 mg Route: Inhalation; jb4 23:36 Not Given (Physician Discretion): Lasix (furosemide) 20 mg IVP once; give over 2 minutescp 23:46 Drug: Rocephin (cefTRIAXone) 1 grams Route: IV; Rate: calculated rate; Site: right lg3 antecubital; 23:46 Drug: Zithromax (azithromycin) 500 mg Route: IVPB; Infused Over: 1 hrs; Site: right lg3 antecubital; 03/27 01:07 Not Given (Pt unable to follow commandss): Tylenol 1000 mg PO once jb4 01:10 Not Given (Physician Discretion): Lasix (furosemide) 20 mg IVP once; give over 2 minuteskl 01:18 Not Given (Pt is allergicc): Zosyn (piperacillin-tazobactam) 3.375 grams IVPB once over jb4 60 mins; (mix in NS 100 mL) 01:35 Drug: Meropenem 1 grams Route: IV; Rate: calculated rate; Site: right antecubital; jb4 Disposition Summary: 03/27/22 01:04 Transfer Ordered Transfer Location: Other Acute Care Facility cp Reason: Higher level of care cp Condition: Stable cp Problem: new cp Symptoms: have improved cp Accepting Physician: DR Barton(03/27/22 08:45) sg5 Diagnosis - Pneumonia due to SARS-associated coronavirus cp - Unspecified combined systolic (congestive) and diastolic (congestive) heart failure cp - Acute kidney failure, unspecified cp - Cholecystitis, unspecified - per CT, NEGATIVE ON USG(03/27/22 04:40) lavarez Forms: - Medication Reconciliation Form cp - SBAR form cp Signatures: Dispatcher [employer] EDEmily Wiseman RN RN kl Anderson, Corey, MD MD cha Attema, Lee, FLUX MIXER-C FLUX MIXER-Cla1 Jordon Montoya PA PA cp Bryson, James, RN RN jb4 Naina Kirkpatrick RN RN lg3 Jacey Salomon RN RN sg5 Corrections: (The following items were deleted from the chart) 01:49 01:04 Doctor cp cp 02:39 01:49 Doctor cp cp 03:40 02:39 Doctor cp cp 04:40 02:39 Cholecystitis, unspecified cp alvarez 04:40 03:40 DR Barton cp alvarez 05:58 02 20:49 Allergies: pseudoephedrine sulfate\\E\\ [Inactive]; 03/27 05:03/26 20:49 Allergies: amoxicillin trihydrate [Inactive]; 03/27 05:03/26 20:49 Allergies: Epinephrine [Inactive]; 03/27:03/26 20:49 Allergies: Iodine [Inactive]; 03/27:03/26 20:49 Allergies: loratadine [Inactive]; 03/27 05:03/26 20:49 Allergies: Bees [Inactive]; 03/27:03/26 20:49 Allergies: Strawberries [Inactive]; 03/27 05:03/26 20:49 Allergies: Nuts [Inactive]; 03/27:03/26 20:49 Allergies: SEAFOOD [Inactive]; 03/27:03/26 20:49 Allergies: Demerol [Inactive]; 03/27 05:03/26 20:49 Home Meds: Proventil Inhl [Inactive]; 03/27:03/26 20:49 Home Meds: Singulair Oral [Inactive]; kl 03/27:03/26 20:49 Home Meds: tramadol 50 mg Oral tab 1 tab for Pain [Inactive]; [facility] 03/27 04:03/26 20:49 Home Meds: amlodipine 5 mg tab 1 tab once daily [Inactive]; [facility] 03/27 04:03/26 20:49 Home Meds: Dexilant 60 mg Oral CpDB 1 cap for Heartburn [Inactive]; [facility] 03/27 04:03/26 20:49 Home Meds: Lasix 40 mg Oral tab 1 tab once daily [Inactive]; [facility] 03/27 04:03/26 20:49 Home Meds: Albuterol Inhl [Inactive]; [facility] 03/27 08:45 04:40 DR Oralia pino sg5
--- NOTE | 2022-03-27 01:05 | ER ---
Nurse's Notes [facility] Name: Justin Garza Age: 41 yrs Sex: Male : 1980 Arrival Date: 03/26/2022 Time: 19:53 Bed 2 Private MD: Diagnosis: Pneumonia due to SARS-associated coronavirus;Unspecified combined systolic (congestive) and diastolic (congestive) heart failure;Cholecystitis, unspecified-per CT, NEGATIVE ON USG;Acute kidney failure, unspecified Presentation: 03/26 20:44 Chief complaint: Patient states: SOB vomiting seen at urgent care and was sent over for kl CHF. Coronavirus screen: Vaccine status: Patient reports receiving the 2nd dose of the covid vaccine. Ebola Screen: Patient negative for fever greater than or equal to 101.5 degrees Fahrenheit, and additional compatible Ebola Virus Disease symptoms. Initial Sepsis Screen: Does the patient meet any 2 criteria? No. Patient's initial sepsis screen is negative. Does the patient have a suspected source of infection? No. Patient's initial sepsis screen is negative. Risk Assessment: Do you want to hurt yourself or someone else? Patient reports no desire to harm self or others. 20:44 Method Of Arrival: Wheelchair 20:44 Acuity: ANNIE 2 kl 03/27 08:45 Onset of symptoms is unknown. sg5 Triage Assessment: 03/26 20:50 General: Appears distressed, well groomed, well developed, Behavior is anxious. Cardiovascular: Rhythm is irregular. Respiratory: Reports shortness of breath cough that is air hunger Airway is patent Trachea midline Respiratory effort is labored, gasping, with nasal flaring, shallow, Respiratory pattern is tachypnea Onset: The symptoms/episode began/occurred gradually, the patient has severe shortness of breath. Historical: - Allergies: 03/27 05:53 pseudoephedrine sulfate\E\; jb4 05:53 amoxicillin trihydrate; jb4 05:53 Epinephrine; jb4 05:53 Iodine; jb4 05:53 loratadine; jb4 05:53 Bees; jb4 05:53 Strawberries; jb4 05:53 Nuts; jb4 05:53 SEAFOOD; jb4 05:53 Demerol; jb4 05:53 Pseudoephedrine; jb4 05:53 Amoxicillin; jb4 - Home Meds: 05:53 Proventil Inhl [Active]; Singulair Oral [Active]; tramadol 50 mg Oral tab 1 tab for jb4 Pain [Active]; amlodipine 5 mg tab 1 tab once daily [Active]; Dexilant 60 mg Oral CpDB 1 cap for Heartburn [Active]; Lasix 40 mg Oral tab 1 tab once daily [Active]; Albuterol Inhl [Active]; - PMHx: 03/26 20:49 Asthma; cardiomyopathy; CHF; GERD; Seizures; SJS; Irregular heart rate; kl - Immunization history:: Adult Immunizations unknown. - Social history:: Smoking status: unknown. Screenin/15 08:43 [facility] ED Fall Risk Assessment (Adult) History of falling in the last 3 months, sg5 including since admission No falls in past 3 months (0 pts). Abuse screen: Denies threats or abuse. Nutritional screening: No deficits noted. Tuberculosis screening: No symptoms or risk factors identified. Assessment: 03/26 21:00 General: Appears distressed, uncomfortable, Behavior is cooperative, anxious. Pain: jb4 Denies pain. Neuro: Level of Consciousness is awake, alert, obeys commands, Oriented to person, place, time, situation. Cardiovascular: Patient's skin is warm and dry. Respiratory: Airway is patent Respiratory effort is labored, shallow, Respiratory pattern is symmetrical, tachypnea Breath sounds are diminished bilaterally. GI: Abdomen is round distended. : No signs and/or symptoms were reported regarding the genitourinary system. EENT: No signs and/or symptoms were reported regarding the EENT system. Derm: Skin is intact, Skin is pink, warm \T\ dry. Musculoskeletal: Circulation, motion, and sensation intact. Range of motion: intact in all extremities. 22:00 Reassessment: No changes from previously documented assessment. Patient and/or family jb4 updated on plan of care and expected duration. Pain level reassessed. Reports no improvement after breathing treatment. 23:00 Reassessment: No changes from previously documented assessment. Patient and/or family jb4 updated on plan of care and expected duration. Pain level reassessed. 03/27 00:05 Reassessment: Pt appears more distressed, trying to get out of bed, now no longer able jb4 to follow commands, lips are cyanotic. Pt unconscious, called for help, boosted pt in bed, not responding to sternal rubs, oxygen 97% on RA, pt is now pale, RT called, PT put on Bi-pap at 30% FIO2. 00:30 Reassessment: Pt color has improved and returned to normal, lips no longer cyanotic. jb4 Respirations are now even and unlabored. pt is satting 100% on bi-pap. 01:30 Reassessment: Patient appears in no apparent distress at this time. No changes from jb4 previously documented assessment. Patient and/or family updated on plan of care and expected duration. Pain level reassessed. 02:30 Reassessment: Pt is resting comfortably in bed with no s/s of pain or distress noted. jb4 03:30 Reassessment: Patient appears in no apparent distress at this time. No changes from jb4 previously documented assessment. Patient and/or family updated on plan of care and expected duration. Pain level reassessed. 04:30 Reassessment: Patient appears in no apparent distress at this time. No changes from jb4 previously documented assessment. Patient and/or family updated on plan of care and expected duration. Pain level reassessed. 05:30 Reassessment: Patient appears in no apparent distress at this time. No changes from jb4 previously documented assessment. Patient and/or family updated on plan of care and expected duration. Pain level reassessed. 06:30 Reassessment: Patient appears in no apparent distress at this time. Patient and/or jb4 family updated on plan of care and expected duration. Pain level reassessed. Patient is alert, oriented x 3, equal unlabored respirations, skin warm/dry/pink. 07:21 Reassessment: Patient placed back on BiPAP Mask. sg5 07:27 Neuro: No deficits noted. Cardiovascular: No deficits noted. Reports None Denies chest sg5 pain, Heart tones S1 S2 present Rhythm is regular. Respiratory: Reports shortness of breath at rest Patient placed back on Bipap, patient reports that it helps. GI: No deficits noted. No signs and/or symptoms were reported involving the gastrointestinal system. : No deficits noted. : No signs and/or symptoms were reported regarding the genitourinary system. EENT: No deficits noted. No signs and/or symptoms were reported regarding the EENT system. Derm: No deficits noted. No signs and/or symptoms reported regarding the dermatologic system. Musculoskeletal: No deficits noted. No signs and/or symptoms reported regarding the musculoskeletal system. Circulation, motion, and sensation intact. Range of motion: intact in all extremities. Vital Signs: 03/26 20:44 Resp 32 S; Temp 98.1; Pulse Ox 98% on R/A; kl 22:30 BP 99 / 74; Pulse 116; Resp 28; Pulse Ox 94% on R/A; jb4 23:20 BP 98 / 82; Pulse 116; Resp 28; Pulse Ox 97% on R/A; jb4 03/27 00:42 BP 92 / 65; Pulse 112; Resp 19; Pulse Ox 97% on 30% BiPAP; jb4 01:30 BP 101 / 79; Pulse 102; Resp 19; Pulse Ox 95% on 30% BiPAP; jb4 02:30 BP 107 / 82; Pulse 99; Resp 20; Pulse Ox 95% on 30% BiPAP; jb4 02:39 Weight 99.79 kg; mw2 03:30 BP 104 / 78; Pulse 100; Resp 24; Pulse Ox 94% on 30% BiPAP; jb4 04:00 BP 104 / 84; Pulse 100; Resp 22; Pulse Ox 95% on 30% BiPAP; jb4 05:00 BP 97 / 82; Pulse 96; Resp 22; Pulse Ox 96% on 30% BiPAP; jb4 06:30 BP 99 / 63; Pulse 101; Resp 24; Pulse Ox 96% on 2 lpm NC; jb4 07:24 BP 95 / 71; Pulse 97; Resp 16; Pulse Ox 96% on BiPAP; sg5 ED Course: 03/26 19:53 Patient arrived in ED. jj6 20:19 Jordon Montoya PA is PHCP. cp 20:19 Jrodon Bermudez MD is Attending Physician. cp 20:49 Triage completed. kl 21:02 Esau Velazquez, RN is Primary Nurse. jb4 03/27 00:20 Lactate w/ 2H reflex if indic. Sent. lg3 01:01 Notified Nurse Practitioner and/or Physician Chemicals Distiller of a critical lab result(s), kl lactate5.0. 02:35 initiated a transfer with Asaf from [facility]. mw2 04:[address] Bermudez with the Hospitalist from [facility]. mw2 04:43 administrative approval given by Asaf Chiang/ patient has been accepted to [address] to ICU bed 5/ Dr. Vanegas accepted the patient in transfer/report to be called to [phone]. 08:43 No provider procedures requiring assistance completed. Patient transferred, IV remains sg5 in place. 08:43 Patient has correct armband on for positive identification. Placed in gown. Bed in low sg5 position. Call light in reach. Side rails up X2. Adult w/ patient. 08:44 Arm band placed on right wrist. sg5 Administered Medications: 03/26 21:24 Drug: Zofran (Ondansetron) 4 mg Route: IVP; Site: right antecubital; jb4 21:24 Drug: Pepcid (famotidine) 20 mg Route: IVP; Site: right antecubital; jb4 21:24 Drug: SOLU-Medrol (methylPrednisoLONE) 125 mg Route: IVP; Site: right antecubital; jb4 21:24 Drug: Xopenex (levalbuterol) (3) 1.25 mg Route: Inhalation; jb4 23:36 Not Given (Physician Discretion): Lasix (furosemide) 20 mg IVP once; give over 2 minutescp 23:46 Drug: Rocephin (cefTRIAXone) 1 grams Route: IV; Rate: calculated rate; Site: right lg3 antecubital; 23:46 Drug: Zithromax (azithromycin) 500 mg Route: IVPB; Infused Over: 1 hrs; Site: right lg3 antecubital; 03/27 01:07 Not Given (Pt unable to follow commandss): Tylenol 1000 mg PO once jb4 01:10 Not Given (Physician Discretion): Lasix (furosemide) 20 mg IVP once; give over 2 minuteskl 01:18 Not Given (Pt is allergicc): Zosyn (piperacillin-tazobactam) 3.375 grams IVPB once over jb4 60 mins; (mix in NS 100 mL) 01:35 Drug: Meropenem 1 grams Route: IV; Rate: calculated rate; Site: right antecubital; jb4 Medication: 08:43 VIS not applicable for this client. sg5 Output: 07:21 Urine: 900ml (Alonso); Total: 900ml. sg5 Outcome: 01:04 ER care complete, transfer ordered by MD. longoria 08:43 Transferred by ground EMS sg5 08:43 Condition: stable 08:43 Instructed on the need for transfer. 08:45 Patient left the ED. sg5 Signatures: Emily Looney RN RN Jordon Easley PA PA cp Bryson, James RN RN jb4 Memo Ley mw2 Naina Kirkpatrick RN RN lg3 Camelia Olivas6 Jacey Salomon RN RN sg5 Corrections: (The following items were deleted from the chart) 05: 02 20:49 Allergies: pseudoephedrine sulfate\E\ [Inactive]; [facility]03/27:03/26 20:49 Allergies: amoxicillin trihydrate [Inactive]; [facility]03/27:03/26 20:49 Allergies: Epinephrine [Inactive]; [facility]03/27:03/26 20:49 Allergies: Iodine [Inactive]; [facility] 03/27 04:03/26 20:49 Allergies: loratadine [Inactive]; [facility]03/27:03/26 20:49 Allergies: Bees [Inactive]; [facility]03/27:03/26 20:49 Allergies: Strawberries [Inactive]; [facility]03/27:03/26 20:49 Allergies: Nuts [Inactive]; [facility]03/27:03/26 20:49 Allergies: SEAFOOD [Inactive]; [facility] 03/27 04:03/26 20:49 Allergies: Demerol [Inactive]; [facility]03/27:03/26 20:49 Home Meds: Proventil Inhl [Inactive]; [facility]03/27:03/26 20:49 Home Meds: Singulair Oral [Inactive]; [facility]03/27:03/26 20:49 Home Meds: tramadol 50 mg Oral tab 1 tab for Pain [Inactive]; [facility]03/27:03/26 20:49 Home Meds: amlodipine 5 mg tab 1 tab once daily [Inactive]; [facility] 03/27 04:03/26 20:49 Home Meds: Dexilant 60 mg Oral CpDB 1 cap for Heartburn [Inactive]; kl jb4 03/27 04:58 03/26 20:49 Home Meds: Lasix 40 mg Oral tab 1 tab once daily [Inactive]; kl jb4 03/27 04:03/26 20:49 Home Meds: Albuterol Inhl [Inactive]; kl jb4
[2022-03-27] MEDS ORDERED: NA CHLORIDE 0.9% 100 ML ONE (01:15)
[2022-03-27] MEDS ORDERED: PIPERACIL/TAZO 3.375 GM VIAL IV ONE (01:16)
[2022-03-27 01:17] LABS: Arterial Blood Carboxyhemoglob 0.8 % (0-1.5); Blood Gas Oxyhemoglobin 95.3 % (94-97); Blood O2 Saturation 97.3 % (92-98.5)
[2022-03-27] MEDS ORDERED: Meropenem 1000 MG/VIAL IV ONE (01:21)
[2022-03-27 08:50] VITALS: TEMP 98.1
[2022-03-27 09:00] VITALS: O2SAT 96
[2022-03-27 09:02] VITALS: BP 95/71
--- NOTE | 2022-03-27 09:17 | RAD REPORT ---
EXAM DESCRIPTION: CT - Chest Abd Pelvis Wo Con - 03/27/2022 5:33 am CLINICAL HISTORY: SOB. COMPARISON: None. TECHNIQUE: CT of the chest, abdomen, and pelvis was performed without contrast. Axial, coronal, and sagittal reconstructions were created and sent to PACS. This exam was performed according to our departmental dose-optimization program, which includes autom ated exposure control, adjustment of the mA and/or kV according to patient size and/or use of iterati ve reconstruction technique. FINDINGS: Lungs and pleura: Opacities in the right lower lobe. Mild diffuse bronchial wall thickenin g. No pleural effusion. No pneumothorax. Mediastinum and neck: Mild mediastinal lymphadenopathy. Unremarkable appearance of the thyroid gland. Cardiac: Mild cardiomegaly. No pericardial effusion. No thoracic aortic aneurysm. Hepatobiliary: No obvious concerning hepatic lesion identified. Possible mild gallbladder wall thicke olga and/or pericholecystic fluid. Suspected mild periportal edema. No biliary ductal dilatation. Pancreas: Unremarkable. Spleen: Unremarkable. Gastrointestinal: No evidence of bowel obstruction or perienteric inflammation. The appendix is rusty l. Adrenals: No abnormality identified in either adrenal gland. Renal: No obvious concerning parenchymal abnormality in either kidney. No hydronephrosis or urolithia sis. Bladder/Reproductive: Unremarkable appearance of the urinary bladder by CT technique. Vascular/Lymphatics: No lymphadenopathy identified by CT size criteria. Abdominal aorta is normal in caliber. Musculoskeletal: No concerning osseous lesion identified. Mild anasarca. Fluid / peritoneum: No significant free fluid. No free intraperitoneal air identified. IMPRESSION 1. Right lower lobe pneumonia. 2. Possible mild gallbladder wall thickening and/or pericholecystic fluid. Suspected mild periporta l edema. 3. Mild anasarca. Electronically signed by: Kalpana Fernandez MD 03/26/2022 11:10 PM BLOOD TESTER Due to temporary technical issues with the PACS/Fluency reporting system, reports are being signed by the in house radiologists without review as a courtesy to insure prompt reporting. The interpreting radiologist is fully responsible for the content of the report.
--- NOTE | 2022-03-27 12:58 | EKG ---
Test Date: 2022-03-27 Test Time: 00:57:44 Cloth Finishing Range Tender: TAMMY MEASUREMENT RESULTS: Intervals: Rate: 114 ID: QRSD: [id number] QT: 462 QTc: 636 [place]: P: ID: QRS: [id number] T: 21 INTERPRETIVE STATEMENTS: Sinus tachycardia with occasional premature ventricular complexes Left axis deviation Possible Anterior infarct, age undetermined Abnormal ECG Compared to ECG 03/26/2022 20:54:40 Ventricular premature complex(es) now present Atrial premature complex(es) no longer present Myocardial infarct finding still present Electronically Signed On 03-27-22 12:57:26 EDUCATIONAL DIRECTOR by Heriberto Ivy
--- NOTE | 2022-03-27 12:58 | EKG ---
Test Date: 2022-03-26 Test Time: 20:54:40 Process Chemist: RV MEASUREMENT RESULTS: Intervals: Rate: 119 VA: 148 QRSD: 92 QT: 322 QTc: 452 [place]: P: 52 VA: 148 QRS: -57 T: 16 INTERPRETIVE STATEMENTS: Sinus tachycardia with premature supraventricular complexes, and PVCs Left axis deviation Possible Anterior infarct, age undetermined Abnormal ECG Compared to ECG 02/12/2021 17:14:02 Atrial premature complex(es) now present Left-axis deviation now present Sinus rhythm no longer present T-wave abnormality no longer present Possible ischemia no longer present Myocardial infarct finding still present Electronically Signed On 03-27-22 12:58:03 PARACHUTE SUPERVISOR by Heriberto Ivy
== END 2022-03-27 08:45 ==
LOC: ER 19:40
DX: U07.1 COVID-19 (principal); J12.82 Pneumonia due to coronavirus disease 2019; J12.81 Pneumonia due to SARS-associated coronavirus; I50.40 Unspecified combined systolic (congestive) and diastolic (congestive) heart failure; N17.9 Acute kidney failure, unspecified; K81.9 Cholecystitis, unspecified; Z88.1 Allergy status to other antibiotic agents; Z88.5 Allergy status to narcotic agent; Z88.8 Allergy status to other drugs, medicaments and biological substances; Z91.013 Allergy to seafood; Z91.018 Allergy to other foods; Z91.030 Bee allergy status; Z91.048 Other nonmedicinal substance allergy status
CPT/HCPCS: 87040 ×2; 85025; 80048; 36415; 83735; 85610; 80076; 83605; 84484; 83880; 0240U; 71250; 74176; 71045; 76705; J7614; J0456; J7050; J2930; J2405; 82805; 93005; 94003; 94660; J1940; J2185; J2543

== ENCOUNTER 2022-04-15 15:24 | Emergency (ER) | payer BC ==
--- OUTSIDE RECORDS SUMMARY | 2022-04-15 15:30 | XMS REPORT | Continuity of Care Document ---
:1980 Author Organization [facility] t Address [address] [facility] [address] [place] [address] Care Team Providers Name Role Phone Wallace Foster DIEZ Primary Care Physician Clive Oglesby MD Attending Clinician Geetha Abbasi DO Attending Clinician Robbin Zuleta MD Attending Clinician [phone] ROBBIN ZULETA Attending Clinician Unavailable Chris LARIOS, Lia Attending Clinician CLIVE GOLESBY Attending Clinician Unavailable GEETHA ABBASI Admitting Clinician Unavailable Payers Payer Name Policy Type Policy Number Effective Date Expiration Date S ource Problems Condition Condition Condition Status Onset Resolution Last Treating Co mments Source Name Details Category Date Date Treatment Clinician Date Acute Acute Disease Active [facility] resp[facility] respirator 2-15 Natalia kes y failure y failure 00:00: Medi elena with with 00 Center hypoxia hypoxia Heart Heart Disease Active 2018-02 Overview: Method i failure failure 0-[address] 00:00: g of this Hospita 00 note l might be different from the original. 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 05-12 00:00: Hospita secondary secondary 00 l to [...] ents Source Name Type Date Date Clinician EPHEDRIN Allergy Active Med Palpitations [facility] Medical 00 [place] Ephedrin Propensi Active Palpitations [facility] adverse 00:00: Medical reaction 00 Center s IODINE Allergy Active High Anaphylaxis [facility] Center AMOXICIL Allergy Active [facility] ROSSY [facility] 00:[facility] Medical 00 Center BEE Allergy Active [facility] POLLEN 2[facility] Center MEPERIDI Allergy Active [facility] 2[facility]15 [facility] 00:[facility] Medical 00 Center EPINEPHR Allergy Active [facility] INE [facility]15 [facility] Center HEPARIN Allergy Active [facility] Medical 00 Center LORATADI Allergy Active 2022-[address] [facility] 2-15 [facility] 00:[facility] Medical 00 Center NUT - Allergy Active 2022-[address] [facility] [address] UNSPECIF 2-15 [facility] IED 00:00: Medical 00 Center PSEUDOEP Allergy Active 3-[address] HEDRINE 2-15 [facility] 00:[facility] Medical 00 Center SHELLFIS Allergy Active 2022-[address] H 2-15 [facility] DERIVED 00:00: Medical 00 Center STRAWBER Allergy Active 2022-[address] RY 2-15 [facility] 00:[facility]: Medical 00 Center Epinephr Propensi Active 2022-[address] ine ty to 2-15 [facility] adverse 00:00: Medical reaction 00 Center s Iodine Propensi Active Anaphylaxis 2022-[address] [facility] [address] ty to 2-15 swelling [facility] adverse 00:00: Medical reaction 00 Center s Loratadi Propensi Active 2022-[address] ne ty to 2-15 [facility] adverse 00:00: Medical reaction 00 Center s Nut - Propensi Active 2022-[address] Unspecif ty to 2-15 [facility] ied adverse 00:00: Medical reaction 00 Center s Pseudoep Propensi Active 2022-[address] hedrine ty to 2-15 [facility] adverse 00:00: Medical reaction 00 Center s Shellfis Propensi Active 2022-[address] h ty to 2-15 [facility] Derived adverse 00:00: Medical reaction 00 Center s Strawber Propensi Active 2022-[address] ry ty to 2-15 [facility] adverse 00:00: Medical reaction 00 Center s Amoxicil Propensi Active 2022-[address] rossy ty to 2-15 cramps [facility] adverse 00:00: Medical reaction 00 Center s Bee Propensi Active 2022-[address] Pollen ty to 2-15 [facility] adverse 00:00: Medical reaction 00 Center s Meperidi Propensi Active 2022-[address] ne ty to 2-15 [facility] adverse 00:00: Medical reaction 00 Center s Fluticas Propensi Active 0 Method i one ty to 4-02 st Propion- adverse 00:00: Hospita Salmeter reaction 00 l ol s to drug Amoxicil Propensi Active Method i rossy ty to 4-02 st adverse 00:00: Hospita reaction 00 l s to drug Ciproflo Propensi Active Method i xacin ty to 4-02 st adverse 00:00: Hospita reaction 00 l s to drug Iodine Propensi Active Methodi ty to 4-02 st adverse 00:00: Hospita reaction 00 l s to drug Lisinopr Propensi Active Method i il ty to 4- st adverse 00:00: Hospita reaction 00 l s to drug Losartan Propensi Active Method i ty to 4 st adverse 00:00: Hospita reaction 00 l [...] Stop Date Source Natural father Heart disease [facility] father Stroke [facility] father Aneurysm [facility] father Heart disease [facility] Natural mother Heart disease [facility] mother Hypertension [facility] Natural mother Irritable bowel [facility] syndrome Natural sister [facility] Social History Social Habit Start Date Stop Date Quantity Comments Source History SDTN [facility] Alcohol Frequency Medical Center History [facility] Alcohol Std Drinks Medica Center History [facility] Alcohol Binge Medical Mari[address] ter History [facility] Transport Non-Med Medical Center Exposure to 2022-03-17 2022-03-[address] [facility] SARS-CoV-2 (event) 00:00:00 15:13:00 Medica l Center Tobacco use and 2022-03-27 2022-03-[address] Natalia kes exposure 00:00:00 00:00:00 Medical Center History [facility] 2022-03-27 2022-03-[address] [facility] Transport Med 00:00:00 00:00:[address] History [facility] 2022-03-27 2022-03-[address] [facility] Housing Unable to 00:00:00 00:00:00 Medical Center Pay History [facility] 2022-03-27 2022-03-[address] [facility] Housing Places 00:00:00 00:00:00 Medical Ce nter Lived History SDOH 2022-03-27 2022-03-[address] [facility] Housing Homeless 00:00:00 00:00:00 Medical Center Last Year Alcohol intake 2019-06-08 2019-06-08 Current drinker [facility] 00:00:00 00:00:00 of [facility] (finding) Alcohol Comment 2018-11-17 2018-11-17 socially [facility] 00:00:00 00:00:00 Hospital Sex Assigned At [address] Natalia kes 00:00:00 00:00:00 Medical Center Smoking Status Start Date Stop Date Source Never smoker [facility] Medications Ordered Filled Start Stop Current Ordering Indication Dosage Frequency Signature Comments Components Source Medication Medication Date Date Medication? Clinician (SIG) Name Name metFORMIN Yes 500mg Take [address] [facility] (GLUMETZA) 2-24 mg by [facility] 500 MG 13:55: mouth Medical (MOD) 24 hr 07 daily with Ce nter tablet breakfast. ergocalcife Yes 55015H Q7D Take [facility] rol 2-24 50,000 [facility] (ERGOCALCIF 13:55: Units by Me dical HEIDE) 1,250 07 mouth once Ce nter mcg (50,000 a week. unit) capsule pantoprazol Yes 40mg QD Take [address] e 2-24 by mouth [facility] (PROTONIX) 13:55: daily. Medic al 40 MG 07 Center tablet aspirin 81 Yes 81mg QD Take [address] MG EC 2-24 by mouth [facility] tablet 13:55: daily. Medical 07 Center lisinopriL 2022- No 5mg QD Take [address] (PRINIVIL,Z - 02-24 by mouth Francia es ESTRIL) 5 08:56: 00:00 daily. Medic al MG tablet 47 :00 Center metoprolol 0 2022- No 25mg QD Take [address] succinate 2-24 02-24 by mouth [facility] (TOPROL-XL) 08:56: 00:00 daily. Med ical 25 MG 24 hr 47 :00 Center tablet amLODIPine 2022- No 5mg QD Take [address] (NORVASC) 5 -05 04-24 by mouth Francia es MG tablet 08:56: 00:00 daily. Medic al 47 :00 Center potassium 2022- No 20meq Q.5D Take [address] chloride 2-24 02-24 mEq by [facility]ukes (KLOR-CON) 08:56: 00:00 mouth 2 Med ical 20 mEq 47 :00 (two) Center packet times daily. furosemide 2022- No 20mg Q.5D Take [address] (LASIX) 20 -05 04-24 by mouth 2 Natalia kes MG tablet 08:56: 00:00 (two) Medica l 47 :00 times Center daily. nitroglycer 2023- Yes Put [address] in 04-05- under [facility]ukes (NITROSTAT) 00:00: 23:59 tongue Med ical 0.4 MG SL 00 :00 every 5min Cent er tablet as needed for chest pain.No more than 3 doses in 15min.Call 911 if pain unrelieved 5min after 1st dose. furosemide 2022- Yes 40mg QD Take [address] (LASIX) 40 2- 04-25 tablet (40 Natalia kes MG tablet 00:00: 23:59 mg total) Me dical 00 :00 by mouth Center daily for 60 days. sacubitriL- 2022- Yes .5{tbl} Q.5D Take 0.[address] valsartan 2-24 04-25 tablets by Francia es (ENTRESTO) 00:00: 23:59 mouth 2 Med ical 24-26 mg 00 :00 (two) Center tablet times daily for 60 days. potassium 2022- Yes 20meq QD Take [address] chloride 2-24 03-26 mEq by [facility]ukes (KLOR-CON) 00:00: 23:59 mouth Medic al 20 mEq 00 :00 daily for Center packet 30 days. warfarin 2022- Yes 6mg QD Take [address] (COUMADIN, - 03-26 tablet (6 Francia es JANTOVEN) 6 00:00: 23:59 mg total) Medical MG tablet 00 :00 by mouth Center daily for 30 days. isosorbide 2020-0 Yes TAKE 1 Metho di dinitrate 5-[address] (ISORDIL) 00:00: MOUTH Hospita 10 MG 00 THREE l tablet TIMES A DAY isosorbide 2020-0 Yes TAKE 1 Metho di dinitrate 5-[address] (ISORDIL) 00:00: MOUTH Hospita 10 MG 00 THREE l tablet TIMES A DAY hydrALAZINE 2019-0 Yes TAKE 1 Meth yosi (APRESOLINE 5-[address] ) 25 MG 00:00: MOUTH Hospita tablet 00 THREE l TIMES A DAY hydrALAZINE 2019-0 Yes TAKE [...] 16:26: nightly. Hospita tablet 11 l albuterol 0 Yes 2{puff} Q6H Inhale 2 M ethodi [...] (six) nebulizer hours as solution needed. furosemide 0 Yes 40mg QD Take 40 mg M ethodi (LASIX) 40 4-[address] mg tablet 16:26: daily. Hospit a 11 l levalbutero 2019-0 Yes 1{ampul Q4H Take 1 M ethodi l (XOPENEX) 4-28 e} ampule by st 1.25 mg/3 16:26: nebulizati Ho spita mL 11 on every 4 l nebulizer (four) solution hours as needed for wheezing. nitroglycer 2020-[address] Metho di in - under the st (NITROSTAT) 16:26: tongue. Hos oscar 0.4 MG SL 11 l tablet aspirin 2020-0 Yes 81mg QD Take 81 mg Meth yosi (ECOTRIN) -[address] 81 MG 16:26: daily. Hospita enteric 11 l coated tablet montelukast 2020-0 Yes 10mg QD Take 10 mg Methodi (SINGULAIR) -[address] 10 mg 11:26: nightly. Hospita tablet 11 l albuterol 2020-0 Yes 2{puff} Q6H Inhale 2 M ethodi (PROAIR - puffs st HFA,PROVENT 11:26: every 6 Hos oscar [place] 11 (six) l HFA,VENTOLI hours as N HFA) 90 needed. mcg/actuati on inhaler albuterol 2020-0 Yes 2.5mg Q6H Take 2.5 Met hodi (ACCUNEB) 4-[address] 2.5 mg /3 11:26: nebulizati Ho spita mL (0.083 11 on every 6 l %) (six) nebulizer hours as solution needed. furosemide 2020-0 Yes 40mg QD Take 40 mg M ethodi (LASIX) 40 - by mouth st mg tablet 11:26: daily. Hospit a 11 l levalbutero 2020-0 Yes 1{ampul Q4H Take 1 M ethodi l (XOPENEX) -28 e} ampule by st 1.25 mg/3 11:26: nebulizati Ho spita mL 11 on every 4 l nebulizer (four) solution hours as needed for wheezing. nitroglycer 2020-[address] Metho di in 4- under the st (NITROSTAT) 11:26: tongue. Hos oscar 0.4 MG SL 11 l tablet aspirin 2020-0 Yes 81mg QD Take 81 mg Meth yosi (ECOTRIN) -[address] 81 MG 11:26: daily. Hospita enteric 11 l coated tablet montelukast 2020-0 Yes 10mg QD Take 10 mg Methodi (SINGULAIR) -[address] 10 mg 11:26: nightly. Hospita tablet 11 l albuterol 2019-0 Yes 2{puff} Q6H Inhale 2 M ethodi (PROAIR 4-[address] HFA,PROVENT 11:26: every 6 Hos oscar [place] (six) l HFA,VENTOLI hours as N HFA) 90 needed. mcg/actuati on inhaler albuterol 2019-0 Yes 2.5mg Q6H Take 2.5 Met hodi (ACCUNEB) -[address] 2.5 mg /3 11:26: nebulizati Ho spita mL (0.083 11 on every 6 l %) (six) nebulizer hours as solution needed. furosemide 0 Yes 40mg QD Take 40 mg M ethodi (LASIX) 40 06-[address] mg tablet 11:26: daily. Hospit a 11 l levalbutero 0 Yes 1{ampul Q4H Take 1 M ethodi l (XOPENEX) 06-07 e} ampule by st 1.25 mg/3 11:26: nebulizati Ho spita mL 11 on every 4 l nebulizer (four) solution hours as needed for wheezing. nitroglycer [address] Metho di in 06-[address] (NITROSTAT) 11:26: tongue. Hos oscar 0.4 MG SL 11 l tablet aspirin 0 Yes 81mg QD Take 81 mg Meth yosi (ECOTRIN) 06-[address] 81 MG 11:26: daily. Hospita enteric 11 l coated tablet metoprolol 2018-02 2020- No 50mg QD Take 1 Meth yosi succinate 011-10 tablet (50 st XL 00:00: 04:59 mg total) Hospita (TOPROL-XL) 00 :00 by mouth l 50 mg 24 hr daily. tablet SYMBICORT Yes 2{puff} Inhale 2 M ethodi 160-4.5 5-[address] mcg/actuati 00:00: needed. Hos oscar on inhaler 00 l SYMBICORT Yes 2{puff} Inhale 2 M ethodi 160-4.5 5-[address] mcg/actuati 00:00: needed. Hos oscar on inhaler 00 l SYMBICORT 2019-0 Yes 2{puff} Inhale 2 M ethodi 160-4.5 5-[address] mcg/actuati 00:00: needed. Hos oscar on inhaler 00 l lisinopril 0 Yes 20mg QD Take 20 mg M ethodi (PRINIVIL,Z 5-[address] ESTRIL) 20 00:00: daily. Hospi ta mg tablet 00 l lisinopril 0 Yes 20mg QD Take 20 mg M ethodi (PRINIVIL,Z 5-[address] ESTRIL) 20 00:00: daily. Hospi ta mg tablet 00 l lisinopril 20190 Yes 20mg QD Take 20 mg M ethodi (PRINIVIL,Z 5-[address] ESTRIL) 20 00:00: daily. Hospi ta mg tablet 00 l Vital Signs Vital Name Observation Time Observation Value Comments Source WEIGHT 2022-04-05 05:35:00 87.2 kg WEIGHT 2022-04-04 05:39:00 86.4 kg WEIGHT 2022-04-03 08:00:00 88 kg WEIGHT 2022-04-02 05:36:00 87.5 kg WEIGHT 2022-03-30 06:00:00 86.6 kg WEIGHT 2022-03-29 05:56:00 89.2 kg HEIGHT 2022-03-27 12:50:00 167.6 cm WEIGHT 2022-03-27 12:50:00 91.627 kg WEIGHT 2022-04-05 05:35:00 87.2 kg WEIGHT 2022-04-04 05:39:00 86.4 kg WEIGHT 2022-04-03 08:00:00 88 kg WEIGHT 2022-04-02 05:36:00 87.5 kg WEIGHT 2022-03-30 06:00:00 86.6 kg WEIGHT 2022-03-29 05:56:00 89.2 kg HEIGHT 2022-03-27 12:50:00 167.6 cm WEIGHT 2022-03-27 12:50:00 91.627 kg WEIGHT 2022-04-05 05:35:00 87.2 kg WEIGHT 2022-04-04 05:39:00 86.4 kg WEIGHT 2022-04-03 08:00:00 88 kg WEIGHT 2022-04-02 05:36:00 87.5 kg WEIGHT 2022-03-30 06:00:00 86.6 kg WEIGHT 2022-03-29 05:56:00 89.2 kg HEIGHT 2022-03-27 12:50:00 167.6 cm WEIGHT 2022-03-27 12:50:00 91.627 kg Systolic blood 2022-04-05 08:39:00 105 mm[Hg] [facility] Diastolic blood 2022-04-05 08:39:00 61 mm[Hg] [facility] Heart rate 2022-04-05 08:39:00 81 /min [facility] Body temperature 2022-04-05 08:39:00 36 Trish [facility] Respiratory rate 2022-04-05 08:39:00 20 /min [facility] Oxygen saturation in 2022-04-05 08:39:00 96 /min [facility] Arterial blood by Medical Ce nter Pulse oximetry Body weight 2022-04-05 05:35:00 87.2 kg [facility] BMI 2022-04-05 05:35:00 31.03 kg/m2 [facility] Body height 2022-03-27 12:50:00 167.6 cm [facility] Procedures Procedure Date / Time Performing Clinician Source Performed POCT-GLUCOSE METER 2022-04-05 11:45:00 Robbin Zuleta [facility] POCT-GLUCOSE METER 2022-04-05 04:46:00 Fili [facility] CBC (HEMOGRAM ONLY) 2022-04-05 04:04:00 Fili [facility] MAGNESIUM 2022-04-05 04:04:00 Fili [facility] PROTHROMBIN TIME/INR 2022-04-05 04:04:00 Fili [facility] HEPATIC FUNCTION PANEL 2022-04-05 04:04:00 Fili [facility] APTT 2022-04-05 04:04:00 Lia Perez [facility] BASIC METABOLIC PANEL 2022-04-05 04:04:[address] [facility] APTT 2022-04-04 19:29:[facility] 2022-04-04 [facility] 2022-04-04 16:32:00 Fili [facility] APTT 2022-04-04 12:19:00 Fili [facility] POCT-GLUCOSE METER 2022-04-04 11:22:[facility]SE METER 2022-04-04 05:06:00 Fili [facility] CBC (HEMOGRAM ONLY) 2022-04-04 03:34[facility]04 03:34[facility]00 [facility] PROT[facility]/INR 2022-04-04 03:34:00 [facility] 2022-04-04 [facility] 2022-04-04 03:34:00 Fili [facility] APTT 2022-04-04 03:34:00 Lia Perez [facility] APTT 2022-04-03 20:25:00 Fili [facility] POCT-GLUCOSE METER 2022-04-03 19:24:00 Fili [facility] POCT-GLUCOSE METER 2022-04-03 16:37:00 Fili [facility] APTT 2022-04-03 12:48:00 [facility] POCT-GLUCOSE METER 2022-04-03 11:18:00 Fili [facility] POCT-GLUCOSE METER 2022-04-03 05:40:00 Fili [facility] CBC (HEMOGRAM ONLY) 2022-04-03 04:18:00 Fili [facility] MAGNESIUM 2022-04-03 04:18:00 Fili [facility] PROTHROMBIN TIME/INR 2022-04-03 04:18:00 Fili [facility] HEPATIC FUNCTION PANEL 2022-04-03 04:18:00 Fili [facility] BASIC METABOLIC PANEL 2022-04-03 04:18:00 Fili [facility] APTT 2022-04-03 04:18:00 Vega [facility] POCT-GLUCOSE METER 2022-04-02 20:09:00 Fili [facility] POCT-GLUCOSE METER 2022-04-02 17:28:00 [facility] ECG 12-LEAD 2022-04-02 10:54:56 Roya Mares [facility] ECG 12-LEAD 2022-04-02 10:54:56 Unknown, Hl7 [facility] POCT-GLUCOSE METER 2022-04-02 10:52:00 Abbasi [facility] XR CHEST 1 VIEW PORTABLE / 2022-04-02 09:11:00 Jazmin Adams [facility] POCT-GLUCOSE METER 2022-04-02 05:48:00 Abbasi [facility] CBC (HEMOGRAM ONLY) 2022-04-02 05:20:00 Fili [facility] MAGNESIUM 2022-04-02 05:20:00 Fili [facility] PROTHROMBIN TIME/INR 2022-04-02 05:20:00 Fili [facility] HEPATIC FUNCTION PANEL 2022-04-02 05:20:00 Fili [facility] BASIC METABOLIC PANEL 2022-04-02 05:20:00 Fili [facility] APTT 2022-04-02 05:20:00 [facility]SE MET[facility] 2022-04-01 19:01[facility]SE [facility]ER 2022-04-01 16:27:00 [facility]SE METER 2022-04-01 11:36:00 [facility]UCOSE METER 2022-04-01 04:58:00 [facility]OLIC PANEL 2022-04-01 04:49:00 [facility] 2022-04-01 04:49:00 Fili [facility] MAGNESIUM 2022-04-01 04:49:00 [facility] PROT[facility]/INR 2022-04-01 04:49:00 Fili [facility] HEPATIC FUNCTION PANEL 2022-04-01 04:49:00 Fili [facility] APTT 2022-04-01 04:49:00 Fili [facility] XR CHEST 1 VIEW PORTABLE / 2022-04-01 00:39:00 Jazmin Adams [facility] POCT-GLUCOSE METER 2022-03-31 19:16:00 Fili [facility] BASIC METABOLIC PANEL 2022-03-31 16:49:00 Chris [facility] POCT-GLUCOSE METER 2022-03-31 11:16:00 Fili [facility] CBC (HEMOGRAM ONLY) 2022-03-31 05:01:00 Fili [facility] MAGNESIUM 2022-03-31 05:01:00 Fili [facility] PROTHROMBIN TIME/INR 2022-03-31 05:01:00 Fili [facility] COMPREHENSIVE METABOLIC 2022-03-31 05:01:[address] [facility] APTT 2022-03-31 05:01:00 Fili [facility] POCT-GLUCOSE METER 2022-03-31 05:00:00 Fili [facility] POCT-GLUCOSE METER 2022-03-30 19:11:00 Fili [facility] POCT-GLUCOSE METER 2022-03-30 16:30:00 Fili [facility] POCT-GLUCOSE METER 2022-03-30 11:21:00 [facility]OLIC PANEL 2022-03-30 06:14:00 Fili [facility] MAGNESIUM 2022-03-30 06:14:00 [facility] PROTHROMBIN TIME/INR 2022-03-30 06:14:00 [facility] 2022-03-30 06:14:00 Dm Ferrari [facility] CBC (HEMOGRAM ONLY) 2022-03-30 06:14:00 Fili [facility] POCT-GLUCOSE METER 2022-03-30 06:06:00 Fili [facility] XR CHEST 1 VIEW PORTABLE / 2022-03-30 00:22:00 Chris [facility] POCT-GLUCOSE METER 2022-03-29 20:52:00 Clive Oglesby [facility] POCT-GLUCOSE METER 2022-03-29 17:36:00 Clive Oglesby Francois [facility] BASIC METABOLIC PANEL 2022-03-29 15:31:00 Syd Huggins [facility] MAGNESIUM 2022-03-29 15:31:00 Syd Huggins [facility] PHOSPHORUS 2022-03-29 15:31:00 Syd Huggins [facility] APTT 2022-03-29 15:31:00 Chris [facility] POCT-GLUCOSE METER 2022-03-29 11:49:00 Clive Oglesby [facility] MISCELLANEOUS LAB ORDER 2022-03-29 10:55:00 Clive Oglesby [facility] ANGIOGRAM, CORONARY, WITH 2022-03-29 10:19:00 Chris [facility] LEFT HEART CATHETERIZATION [facility] AND LEFT VENTRICULOGRAM, WITH PTCA IF INDICATED CBC W/PLT COUNT & AUTO 2022-03-29 05:53:00 [facility] W/[facility] & AUTO 2022-03-29 05:53:00 Peerjosefina [facility] COMPREHENSIVE METABOLIC 2022-03-29 05:53:00 Chris [facility] MAGNESIUM 2022-03-29 05:53:00 [facility] 2022-03-29 05:53[facility]00 [facility] 2022-03-29 05:53:00 [facility] PROTHROMBIN TIME/INR 2022-03-29 05:53:00 Syd Huggins [facility] APTT 2022-03-28 22:14:00 [facility] POCT-GLUCOSE METER 2022-03-28 20:58:00 Clive Oglesby [facility] POCT-GLUCOSE METER 2022-03-28 16:38:00 Clive Oglesby [facility] APTT 2022-03-28 13:51:00 [facility] POCT-GLUCOSE METER 2022-03-28 11:44:00 Clive Oglesby [facility] CBC W/PLT COUNT & AUTO 2022-03-28 05:31:00 [facility] 2022-03-28 05:31[facility]00 [facility] W/[facility] & AUTO 2022-03-28 05:31:00 Chris [facility] COMPREHENSIVE METABOLIC 2022-03-28 05:31:[address] [facility] MAGNESIUM 2022-03-28 05:31:00 Chris [facility] PHOSPHORUS 2022-03-28 05:31:00 Chris [facility] LIPID PANEL 2022-03-28 05:31:00 Saul [facility] C-REACTIVE PROTEIN 2022-03-28 05:31:00 Jazmin Adams [facility] TROPONIN I 2022-03-28 05:31:00 Saul [facility] XR CHEST 1 VIEW PORTABLE / 2022-03-28 00:13:00 Bryan Jazminestefanía Albright [facility] PLATELET COUNT 2022-03-27 22:34:00 Syd Huggins [facility] POCT-GLUCOSE METER 2022-03-27 22:28:00 Clive Oglesby [facility] URINALYSIS WITH 2022-03-27 22:08:00 [facility] MICROSCOPIC IF INDICATED Medical Center RAPID DRUG SCREEN, URINE 2022-03-27 22:08:00 [facility] URINALYSIS MICROSCOPIC 2022-03-27 22:08:00 [facility] APTT 2022-03-27 22:06:00 Chris [facility] TROPONIN I 2022-03-27 22:06:00 Saul [facility] POCT-GLUCOSE METER 2022-03-27 16:56:00 Clive Oglesby [facility] C-REACTIVE PROTEIN 2022-03-27 16:30:00 [facility] TSH/FREE T4 IF INDICATED 2022-03-27 16:30:00 Saul Kingston Luciano bella [facility] TROPONIN I 2022-03-27 16:30:00 [facility] ECG 12-LEAD 2022-03-27 13:15:05 [facility] 12-[facility]AD 2022-03-27 13:15:05 Unknown, Hl7 [facility] 2D ECHO W/ DOPPLER 2022-03-27 12:23:15 Syd Huggins [facility] (CW/PW/COLOR) [facility] LACTIC ACID, VENOUS 2022-03-27 12:20:00 Syd Huggins [facility] B-TYPE NATRIURETIC FACTOR 2022-03-27 12:19:00 Syd Huggins [facility] (BNP) [facility] BLOOD GAS, ARTERIAL 2022-03-27 12:13:[address] Syd Hug[address] [facility] CBC W/PLT COUNT & AUTO 2022-03-27 12:07:00 Syd Huggins [facility] COMPREHENSIVE METABOLIC 2022-03-27 12:07:00 Syd Huggins [facility] PANEL [facility] MAGNESIUM 2022-03-27 12:07:00 Syd Huggins [facility] PHOSPHORUS 2022-03-27 12:07:00 Syd Huggins [facility] TROPONIN I 2022-03-27 12:07:00 Syd Huggins [facility] CBC W/PLT COUNT & AUTO 2022-03-27 12:07:00 Syd Huggins [facility] HEMOGLOBIN A1C 2022-03-27 12:07:00 [place] [facility] [place] CHEST 1 VIEW PORTABLE / 2022-03-27 11:41:00 Syd Huggins [facility] CARDIAC CATH REPORT - SCAN 2022-03-27 00:00:00 Karuna [facility] EKG-SCANNED 2022-03-27 00:00:00 Karuna [facility] VASCULAR DIAGRAM -SCAN 2022-03-27 00:00:00 Karuna [facility] PERMANENT LAB REPORT - 2022-03-27 00:00:00 Karuna [facility] Plan of Care Planned Activity Planned Date Details Comments Source Future Scheduled 2025-03-[address] [facility] Test 00:00:00 (procedure) [code = [facility] [id number]] Future Scheduled 2023-03-[address] [facility] Test 00:00:00 Counseling and Medical Cente r Screening (12+) [code = Tobacco Cessation Counseling and Screening (12+)] Future Scheduled 2022-04-05 COVID-19 VACCINE (#1) [facility] Test 09:23:13 [code = COVID-19 VACCINE (#1)] Future Scheduled 2022-04-05 Pneumococcal Vaccine: [facility] Test 09:23:13 Pediatrics (0 to 5 Years) and At-Risk Patients (6 to 64 Years) (1 - PCV) [code = Pneumococcal Vaccine: Pediatrics (0 to 5 Years) and At-Risk Patients (6 to 64 Years) (1 - PCV)] Future Scheduled 2022-04-05 Hepatitis C screening [facility] Test 09:23:13 (procedure) [code = [id number]] Future Scheduled 2022-04-05 [facility]ACCINE [facility] 09:23:13 [code = INFLUENZA VACCINE] Future Scheduled 2022-03-25 COVID-19 VACCINE (#1) [facility] Test 09:43:08 [code = COVID-19 VACCINE (#1)] Future Scheduled 2022-03-25 Pneumococcal Vaccine: [facility] Test 09:43:08 Pediatrics (0 to 5 Years) and At-Risk Patients (6 to 64 Years) (1 - PCV) [code = Pneumococcal Vaccine: Pediatrics (0 to 5 Years) and At-Risk Patients (6 to 64 Years) (1 - PCV)] Future Scheduled 2022-03-25 Hepatitis C screening [facility] Test 09:43:08 (procedure) [code = [id number]] Future Scheduled 2022-03-25 [facility]ACCINE [facility] 09:43:08 [code = INFLUENZA VACCINE] Future Scheduled 2022-02-[address] [facility] Test 00:00:00 (12+) [code = [facility] DEPRESSION SCREENING (12+)] Future Scheduled 2021-10-11 INFLUENZA VACCINE (#1) [facility] 00:[facility]:00 [code = INFLUENZA Medical Ce nter VACCINE (#1)] Future Scheduled 1998-12-04 DTAP/TDAP/TD VACCINES [facility] 00:00:00 (1 - Tdap) [code = Medical C enter DTAP/TDAP/TD VACCINES (1 - Tdap)] Future Scheduled 1997-12-04 HEPATITIS C [facility]CRE[facility]ING [facility] Test 00:00:00 [code = HEPATITIS C Medical Center SCREENING] Future Scheduled 1985-12-[address] [facility] Test 00:00:00 0-64 YRS (1 - PCV) Medical C enter [code = PNEUMOCOCCAL VACCINE 0-64 YRS (1 - PCV)] Future Scheduled 1980-06-04 COVID-19 VACCINE (#1) [facility] 00:00:00 [code = COVID-[address] VACCINE (#1)] Future Scheduled COVID-19 VACCINE (1) [facility] Test [code = COVID-19 VACCINE (1)] Future Scheduled Hepatitis C screening [facility] Test (procedure) [code = [id number]] Future Scheduled INFLUENZA VACCINE [facility] Test [code = INFLUENZA VACCINE] Encounters Start End Encounter Admission Attending Care Care Encounter Source Date/Time Date/Time Type Type Clinicians Facility Department ID 2022-03-27 2022-04-05 Hospital Clive Oglesby [facility] [id number] [facility] [address] 11:06:00 13:45:00 Encounter Geetha Abbasi [facility] 2022-03-27 2022-04-05 Inpatient [facility] Medical ICU [id number] [facility] 11:06:00 13:45:00 [facility] 2022-03-29 2022-03-29 [facility] [id number] 09:40:00 10:35:00 Lia [facility] 2022-03-27 2022-03-27 Orders [facility] [id number] 00:00:00 00:00:00 Only [facility] 2022-03-27 2022-03-[address] [facility] [id number] [facility] 00:[facility] 00:[facility]00 [facility] Results Test Description Test Time Test Comments Results Result Comments Source POC-Glucose meter 2022-04-05 12:12:32 Test Item Value Reference Range Interpretation Comme nts POC-Glucose Meter (test code = 151 mg/dL 70-110 H : TESTED AT [facility] [address]) [address], [place] [address]: Collections Analyst/Techni macrina ID = [id number] for Brenda Whitney Lab Interpretation (test code = Abnormal 48247-2) [facility] [id number] 12:12:32 Test Item Value Reference Range Interpretation Comments POC-GLUCOSE METER 151 mg/dL 70-110 H : TESTED A T [facility] (BEAKER) (test code [address], = 1538) [place] [address]: Collections Analyst/Techni macrina ID = [id number] for Brenda Hurd BASIC METABOLIC [id number] 08:06:34 Test Item Value Reference Range Interpretation Comments SODIUM (BEAKER) 135 meq/L 135-148 (test code = 381) POTASSIUM 4.0 meq/L 3.6-5.5 (BEAKER) (test code = 379) CHLORIDE (BEAKER) 97 meq/L 98-106 L (test code = 382) CO2 (BEAKER) 26 meq/L 20-29 (test code = 355) BLOOD UREA 32 mg/dL 10-26 H NITROGEN (BEAKER) (test code = 354) CREATININE 1.26 mg/dL 0.50-1.20 H (BEAKER) (test code = 358) GLUCOSE RANDOM 122 mg/dL 70-110 H (BEAKER) (test code = 652) CALCIUM (BEAKER) 8.4 mg/dL 8.5-10.5 L (test code = 697) EGFR (BEAKER) 74 Interpretatio n of eGFR (test code = mL/min/1.73 values Stage De scription 1092) sq m Result G1 Ana l or high >=90 G2 Mildly decreased 60-89 G3a Mildl y to moderately 45-5 9 G3b Moderately to s everely 30-44 G4 Severl y decreased 15-29 G5 Kidney failure <15Reported eGF R is based on the CKD-EPI 2020 equation that d oes not use a race coefficientEsti mated GFR is not as accur ate as Creatinine Cathy sewell in predicting glom erular filtration rate . Estimated GFR is not appl icable for dialysis patien ts Collections Analyst ID - NLYLEHEPATIC FUNCTION [id number] 05:10:40 Test Item Value Reference Range Interpretation Comments TOTAL PROTEIN (BEAKER) (test code = 5.6 gm/dL 6.0-8.5 L 770) ALBUMIN (BEAKER) (test code = 1145) 3.1 g/dL 3.5-5.0 L BILIRUBIN TOTAL (BEAKER) (test code 0.4 mg/dL 0.1-1.2 = 377) BILIRUBIN DIRECT (BEAKER) (test 0.2 mg/dL 0.0-0.4 code = 706) ALKALINE PHOSPHATASE (BEAKER) (test 37 U/L 30-115 code = 346) AST (SGOT) (BEAKER) (test code = 33 U/L 5-40 353) ALT (SGPT) (BEAKER) (test code = 102 U/L 5-50 H 347) Collections Analyst ID - Dorene [id number] 05:10:40 Test Item Value Reference Range Interpretation Comments MAGNESIUM (BEAKER) (test code = 2.3 mg/dL 1.5-3.0 627) Collections Analyst ID - Dorene TPOCT-GLUCOSE [id number] 04:58:32 Test Item Value Reference Range Interpretation Comments POC-GLUCOSE METER 140 mg/dL 70-110 H : TESTED A T [facility] (BEAKER) (test code [address], = 1538) [facility] [address]: Collections Analyst/Techni macrina ID = [id number] for Glenroy Estrella PROTHROMBIN [id number] 04:55:34 Test Item Value Reference Range Interpretation Comments PROTIME (BEAKER) 25.1 seconds 9.8-12.0 H Final Infor mation (test code = 759) (Auto Outp ut) INR (BEAKER) (test 2.48 <=5.90 Final Inf ormation code = 370) (Auto Output) RECOMMENDED COUMADIN/WARFARIN INR THERAPY RANGESSTANDARD DOSE: 2.0 - 3.0 Includes: PROPHYLAXIS for venous thrombosis, systemic embolization; TREATMENT for venous thrombosis and/or pulmonary embolus.HIGH RISK: Target INR is 2.5-3.5 for patients with mechanical heart valves.[id number] 04:55:31 Test Item Value Reference Range Interpretation Comments PARTIAL THROMBOPLASTIN 70.5 seconds 25.8-34.5 H Final Information TIME (BEAKER) (test (Auto Ou tput) code = 760) CBC (HEMOGRAM ONLY)2022-04-05 04:34:29 Test Item Value Reference Range Interpretation Comments WHITE BLOOD CELL COUNT (BEAKER) 13.4 K/ L 4.0-10.0 H (test code = 775) RED BLOOD CELL COUNT (BEAKER) 5.18 M/ L 4.20-5.80 (test code = 761) HEMOGLOBIN (BEAKER) (test code = 14.5 GM/DL 13.0-16.8 410) HEMATOCRIT (BEAKER) (test code = 45.1 % 36.0-50.0 411) MEAN CORPUSCULAR VOLUME (BEAKER) 87 fL 82-99 (test code = 753) MEAN CORPUSCULAR HEMOGLOBIN 28.0 pg 27.0-33.0 (BEAKER) (test code = 751) MEAN CORPUSCULAR HEMOGLOBIN CONC 32.2 GM/DL 32.0-36.0 (BEAKER) (test code = 752) RED CELL DISTRIBUTION WIDTH 13.6 % 12.0-15.0 (BEAKER) (test code = 412) PLATELET COUNT (BEAKER) (test 354 K/CU MM 150-430 code = 756) MEAN PLATELET VOLUME (BEAKER) 9.8 fL 6.0-11.5 (test code = 754) NUCLEATED RED BLOOD CELLS 0 /100 WBC 0-0 (BEAKER) (test code = 413) [id number] 21:05:24 Test Item Value Reference Range Interpretation Comments PARTIAL THROMBOPLASTIN 81.3 seconds 25.8-34.5 H Final Information TIME (BEAKER) (test (Auto Ou tput) code = 760) POCT-GLUCOSE [id number] 19:49:22 Test Item Value Reference Range Interpretation Comments POC-GLUCOSE METER 170 mg/dL 70-110 H : TESTED A T [facility] (BEAKER) (test code [address], = 1538) [place] [address]: Collections Analyst/Techni macrina ID = [id number] for Glenroy Estrella POCT-GLUCOSE [id number] 16:43:38 Test Item Value Reference Range Interpretation Comments POC-GLUCOSE METER 115 mg/dL 70-110 H : TESTED A T [facility] (BEAKER) (test code [address], = 1538) [place] [address] 0: Collections Analyst/Techni macrina ID = [id number] for Esau Nunez [id number] 12:43:54 Test Item Value Reference Range Interpretation Comments PARTIAL THROMBOPLASTIN 69.0 seconds 25.8-34.5 H Final Information TIME (BEAKER) (test (Auto Ou tput) code = 760) POCT-GLUCOSE [id number] 12:07:16 Test Item Value Reference Range Interpretation Comments POC-GLUCOSE METER 97 mg/dL 70-110 : TESTED A T [facility] (BEAKER) (test code = [address], 1538) [place] [address] 0: Collections Analyst/Techni macrina ID = [id number] for Esau Nunez POCT-GLUCOSE [id number] 05:17:50 Test Item Value Reference Range Interpretation Comments POC-GLUCOSE METER 150 mg/dL 70-110 H : TESTED A T [facility] (BEAKER) (test code [address], = 1538) [place] [address] 0: Collections Analyst/Techni macrina ID = [id number] for Glenroy Estrella [id number] 04:21:48 Test Item Value Reference Range Interpretation Comments PARTIAL THROMBOPLASTIN 112.8 seconds 25.8-34.5 H Carmen l Information TIME (BEAKER) (test (Auto Ou tput) code = 760) PROTHROMBIN [id number] 04:19:56 Test Item Value Reference Range Interpretation Comments PROTIME (BEAKER) 19.3 seconds 9.8-12.0 H Final Infor mation (test code = 759) (Auto Outp ut) INR (BEAKER) (test 1.86 <=5.90 Final Inf ormation code = 370) (Auto Output) RECOMMENDED COUMADIN/WARFARIN INR THERAPY RANGESSTANDARD DOSE: 2.0 - 3.0 Includes: PROPHYLAXIS for venous thrombosis, systemic embolization; TREATMENT for venous thrombosis and/or pulmonary embolus.HIGH RISK: Target INR is 2.5-3.5 for patients with mechanical heart valves.[id number] 04:16:16 Test Item Value Reference Range Interpretation Comments MAGNESIUM (BEAKER) (test code = 2.4 mg/dL 1.5-3.0 627) Collections Analyst ID - [facility] [id number] 04:16:16 Test Item Value Reference Range Interpretation Comments TOTAL PROTEIN (BEAKER) (test code = 6.0 gm/dL 6.0-8.5 770) ALBUMIN (BEAKER) (test code = 1145) 3.3 g/dL 3.5-5.0 L BILIRUBIN TOTAL (BEAKER) (test code 0.6 mg/dL 0.1-1.2 = 377) BILIRUBIN DIRECT (BEAKER) (test 0.2 mg/dL 0.0-0.4 code = 706) ALKALINE PHOSPHATASE (BEAKER) (test 41 U/L 30-115 code = 346) AST (SGOT) (BEAKER) (test code = 10 U/L 5-40 353) ALT (SGPT) (BEAKER) (test code = 46 U/L 5-50 347) Collections Analyst ID - [facility] METABOLIC [id number] 04:16:15 Test Item Value Reference Range Interpretation Comments SODIUM (BEAKER) 136 meq/L 135-148 (test code = 381) POTASSIUM 4.0 meq/L 3.6-5.5 (BEAKER) (test code = 379) CHLORIDE (BEAKER) 97 meq/L 98-106 L (test code = 382) CO2 (BEAKER) 28 meq/L 20-29 (test code = 355) BLOOD UREA 32 mg/dL 10-26 H NITROGEN (BEAKER) (test code = 354) CREATININE 1.24 mg/dL 0.50-1.20 H (BEAKER) (test code = 358) GLUCOSE RANDOM 141 mg/dL 70-110 H (BEAKER) (test code = 652) CALCIUM (BEAKER) 9.0 mg/dL 8.5-10.5 (test code = 697) EGFR (BEAKER) 75 Interpretatio n of eGFR (test code = mL/min/1.73 values Stage De scription 1092) sq m Result G1 Ana l or high >=90 G2 Mildly decreased 60-89 G3a Mildl y to moderately 45-5 9 G3b Moderately to s everely 30-44 G4 Severl y decreased 15-29 G5 Kidney failure <15Reported eGF R is based on the CKD-EPI 2020 equation that d oes not use a race coefficientEsti mated GFR is not as accur ate as Creatinine Cathy sewell in predicting glom erular filtration rate . Estimated GFR is not appl icable for dialysis patien ts Collections Analyst ID - PURACBC (HEMOGRAM ONLY)2022-04-04 03:51:50 Test Item Value Reference Range Interpretation Comments WHITE BLOOD CELL COUNT (BEAKER) 14.4 K/ L 4.0-10.0 H (test code = 775) RED BLOOD CELL COUNT (BEAKER) 5.18 M/ L 4.20-5.80 (test code = 761) HEMOGLOBIN (BEAKER) (test code = 14.9 GM/DL 13.0-16.8 410) HEMATOCRIT (BEAKER) (test code = 45.3 % 36.0-50.0 411) MEAN CORPUSCULAR VOLUME (BEAKER) 88 fL 82-99 (test code = 753) MEAN CORPUSCULAR HEMOGLOBIN 28.8 pg 27.0-33.0 (BEAKER) (test code = 751) MEAN CORPUSCULAR HEMOGLOBIN CONC 32.9 GM/DL 32.0-36.0 (BEAKER) (test code = 752) RED CELL DISTRIBUTION WIDTH 14.1 % 12.0-15.0 (BEAKER) (test code = 412) PLATELET COUNT (BEAKER) (test 323 K/CU MM 150-430 code = 756) MEAN PLATELET VOLUME (BEAKER) 9.8 fL 6.0-11.5 (test code = 754) NUCLEATED RED BLOOD CELLS 0 /100 WBC 0-0 (BEAKER) (test code = 413) [id number] 23:41:36 Test Item Value Reference Range Interpretation Comments PARTIAL THROMBOPLASTIN TIME 79.4 seconds 25.8-34.5 H (BEAKER) (test code = 760) POCT-GLUCOSE [id number] 20:50:05 Test Item Value Reference Range Interpretation Comments POC-GLUCOSE METER 191 mg/dL 70-110 H : TESTED A T [facility] (BEAKER) (test code [address], = 1538) [facility] [address]: Collections Analyst/Techni macrina ID = [id number] for Glenroy Estrella POCT-GLUCOSE [id number] 17:19:22 Test Item Value Reference Range Interpretation Comments POC-GLUCOSE METER 134 mg/dL 70-110 H : TESTED A T [facility] (BEAKER) (test code [address], = 1538) [place] [address] 0: Collections Analyst/Techni macrina ID = [id number] for Stew art, Brenda [id number] 13:32:07 Test Item Value Reference Range Interpretation Comments PARTIAL THROMBOPLASTIN 78.4 seconds 25.8-34.5 H Final Information TIME (BEAKER) (test (Auto Ou tput) code = 760) POCT-GLUCOSE [id number] 11:30:42 Test Item Value Reference Range Interpretation Comments POC-GLUCOSE METER 134 mg/dL 70-110 H : TESTED A T [facility] (BEAKER) (test code [address], = 1538) [place] [address] 0: Collections Analyst/Techni macrina ID = [id number] for Stew art, Brenda POCT-GLUCOSE [id number] 05:52:06 Test Item Value Reference Range Interpretation Comments POC-GLUCOSE METER 150 mg/dL 70-110 H : TESTED A T [facility] (BEAKER) (test code [address], = 1538) [place] [address] 0: Collections Analyst/Techni macrina ID = [id number] for Mukund Malagon [id number] 05:04:18 Test Item Value Reference Range Interpretation Comments PARTIAL THROMBOPLASTIN 127.1 seconds 25.8-34.5 HH Carmen l Information TIME (BEAKER) (test (Auto Ou tput) code = 760) PROTHROMBIN [id number] 05:01:15 Test Item Value Reference Range Interpretation Comments PROTIME (BEAKER) 16.5 seconds 9.8-12.0 H Final Infor mation (test code = 759) (Auto Outp ut) INR (BEAKER) (test 1.57 <=5.90 Final Inf ormation code = 370) (Auto Output) RECOMMENDED COUMADIN/WARFARIN INR THERAPY RANGESSTANDARD DOSE: 2.0 - 3.0 Includes: PROPHYLAXIS for venous thrombosis, systemic embolization; TREATMENT for venous thrombosis and/or pulmonary embolus.HIGH RISK: Target INR is 2.5-3.5 for patients with mechanical heart valves.[id number] 04:57:33 Test Item Value Reference Range Interpretation Comments MAGNESIUM (BEAKER) (test code = 2.4 mg/dL 1.5-3.0 627) Collections Analyst ID - [facility] [id number] 04:57:33 Test Item Value Reference Range Interpretation Comments TOTAL PROTEIN (BEAKER) (test code = 5.8 gm/dL 6.0-8.5 L 770) ALBUMIN (BEAKER) (test code = 1145) 3.2 g/dL 3.5-5.0 L BILIRUBIN TOTAL (BEAKER) (test code 0.6 mg/dL 0.1-1.2 = 377) BILIRUBIN DIRECT (BEAKER) (test 0.2 mg/dL 0.0-0.4 code = 706) ALKALINE PHOSPHATASE (BEAKER) (test 48 U/L 30-115 code = 346) AST (SGOT) (BEAKER) (test code = 7 U/L 5-40 353) ALT (SGPT) (BEAKER) (test code = 50 U/L 5-50 347) Collections Analyst ID - LORIBASIC METABOLIC [id number] 04:57:32 Test Item Value Reference Range Interpretation Comments SODIUM (BEAKER) 137 meq/L 135-148 (test code = 381) POTASSIUM 3.8 meq/L 3.6-5.5 (BEAKER) (test code = 379) CHLORIDE (BEAKER) 99 meq/L 98-106 (test code = 382) CO2 (BEAKER) 28 meq/L 20-29 (test code = 355) BLOOD UREA 30 mg/dL 10-26 H NITROGEN (BEAKER) (test code = 354) CREATININE 1.21 mg/dL 0.50-1.20 H (BEAKER) (test code = 358) GLUCOSE RANDOM 148 mg/dL 70-110 H (BEAKER) (test code = 652) CALCIUM (BEAKER) 8.6 mg/dL 8.5-10.5 (test code = 697) EGFR (BEAKER) 78 Interpretatio n of eGFR (test code = mL/min/1.73 values Stage De scription 1092) sq m Result G1 Norm al or high >=90 G2 Mildly decreased 60-89 G3a Mildl y to moderately 45-5 9 G3b Moderately to s everely 30-44 G4 Severl y decreased 15-29 G5 Kidne y failure <15Reported eGF R is based on the CKD-EPI 2020 equation that d oes not use a race coefficientEsti mated GFR is not as accur ate as Creatinine Cathy sewell in predicting glom erular filtration rate . Estimated GFR is not appl icable for dialysis patien ts Collections Analyst ID - LORICBC (HEMOGRAM ONLY)2022-04-03 04:49:54 Test Item Value Reference Range Interpretation Comments WHITE BLOOD CELL COUNT (BEAKER) 16.2 K/ L 4.0-10.0 H (test code = 775) RED BLOOD CELL COUNT (BEAKER) 5.17 M/ L 4.20-5.80 (test code = 761) HEMOGLOBIN (BEAKER) (test code = 14.9 GM/DL 13.0-16.8 410) HEMATOCRIT (BEAKER) (test code = 45.5 % 36.0-50.0 411) MEAN CORPUSCULAR VOLUME (BEAKER) 88 fL 82-99 (test code = 753) MEAN CORPUSCULAR HEMOGLOBIN 28.8 pg 27.0-33.0 (BEAKER) (test code = 751) MEAN CORPUSCULAR HEMOGLOBIN CONC 32.7 GM/DL 32.0-36.0 (BEAKER) (test code = 752) RED CELL DISTRIBUTION WIDTH 14.4 % 12.0-15.0 (BEAKER) (test code = 412) PLATELET COUNT (BEAKER) (test 325 K/CU MM 150-430 code = 756) MEAN PLATELET VOLUME (BEAKER) 9.9 fL 6.0-11.5 (test code = 754) NUCLEATED RED BLOOD CELLS 0 /100 WBC 0-0 (BEAKER) (test code = 413) POCT-GLUCOSE [id number] 20:39:41 Test Item Value Reference Range Interpretation Comments POC-GLUCOSE METER 155 mg/dL 70-110 H : TESTED A T [facility] (BEAKER) (test code PRATIBHAOO [address], = 1538) [facility] [address]: Collections Analyst/Techni macrina ID = [id number] for Vicente Lilly POCT-GLUCOSE [id number] 17:39:26 Test Item Value Reference Range Interpretation Comments POC-GLUCOSE METER 120 mg/dL 70-110 H : TESTED A T [facility] (BEAKER) (test code [address], = 1538) [place] [address] 0: Collections Analyst/Techni macrina ID = [id number] for Delg ado, Kerry POCT-GLUCOSE [id number] 11:58:40 Test Item Value Reference Range Interpretation Comments POC-GLUCOSE METER 140 mg/dL 70-110 H : TESTED A T [facility] (BEAKER) (test code [address], = 1538) [place] [address] 0: Collections Analyst/Techni macrina ID = [id number] for Delg ado, Kerry RAD, CHEST, 1 VIEW, NON [id number] 09:19:00Reason for exam:->chest painShould this be performed at the bedside?->Yes [facility] 1980 Sex: MFINAL REPORT Chest AP portable erect Comparison exam: 04/01/2022 History provided: Chest pain Heart size magnified by projection. Lungs are clear and vascularity normal. Midline cathetertip at the axillary vein on the right. Signed: George Chanort Verified Date/Time: 04/02/2022 09:19:59 Reading Location: [facility] Radiology Reading Room POCT-GLUCOSE [id number] 06:26:08 Test Item Value Reference Range Interpretation Comments POC-GLUCOSE METER 144 mg/dL 70-110 H : TESTED A T [facility] (BEAKER) (test code AMBERW[address], = 1538) [place] [address]: Collections Analyst/Techni macrina ID = [id number] for Balt ie, [facility] [id number] 05:57:40 Test Item Value Reference Range Interpretation Comments TOTAL PROTEIN (BEAKER) (test code = 5.9 gm/dL 6.0-8.5 L 770) ALBUMIN (BEAKER) (test code = 1145) 3.3 g/dL 3.5-5.0 L BILIRUBIN TOTAL (BEAKER) (test code 0.5 mg/dL 0.1-1.2 = 377) BILIRUBIN DIRECT (BEAKER) (test 0.2 mg/dL 0.0-0.4 code = 706) ALKALINE PHOSPHATASE (BEAKER) (test 59 U/L 30-115 code = 346) AST (SGOT) (BEAKER) (test code = 9 U/L 5-40 353) ALT (SGPT) (BEAKER) (test code = 65 U/L 5-50 H 347) Collections Analyst ID - [facility] METABOL[facility] [id number] 05:57:39 Test Item Value Reference Range Interpretation Comments SODIUM (BEAKER) 136 meq/L 135-148 (test code = 381) POTASSIUM 3.9 meq/L 3.6-5.5 (BEAKER) (test code = 379) CHLORIDE (BEAKER) 100 meq/L 98-106 (test code = 382) CO2 (BEAKER) 27 meq/L 20-29 (test code = 355) BLOOD UREA 28 mg/dL 10-26 H NITROGEN (BEAKER) (test code = 354) CREATININE 1.28 mg/dL 0.50-1.20 H (BEAKER) (test code = 358) GLUCOSE RANDOM 144 mg/dL 70-110 H (BEAKER) (test code = 652) CALCIUM (BEAKER) 8.6 mg/dL 8.5-10.5 (test code = 697) EGFR (BEAKER) 73 Interpretatio n of eGFR (test code = mL/min/1.73 values Stage De scription 1092) sq m Result G1 Aan l or high >=90 G2 Mildly decreased 60-89 G3a Mildl y to moderately 45-5 9 G3b Moderately to s everely 30-44 G4 Severl y decreased 15-29 G5 Kidney failure <15Reported eGF R is based on the CKD-EPI 2020 equation that d oes not use a race coefficientEsti mated GFR is not as accur ate as Creatinine Cathy melodie in predicting glom erular filtration rate . Estimated GFR is not appl icable for dialysis patien ts Collections Analyst ID - [id number] 05:57:39 Test Item Value Reference Range Interpretation Comments MAGNESIUM (BEAKER) (test code = 2.3 mg/dL 1.5-3.0 627) Collections Analyst ID - [id number] 05:47:37 Test Item Value Reference Range Interpretation Comments PARTIAL THROMBOPLASTIN 80.8 seconds 25.8-34.5 H Final Information TIME (BEAKER) (test (Auto Ou tput) code = 760) PROTHROMBIN TIME/[id number] 05:46:32 Test Item Value Reference Range Interpretation Comments PROTIME (BEAKER) 16.3 seconds 9.8-12.0 H Final Infor mation (test code = 759) (Auto Outp ut) INR (BEAKER) (test 1.55 <=5.90 Final Inf ormation code = 370) (Auto Output) RECOMMENDED COUMADIN/WARFARIN INR THERAPY RANGESSTANDARD DOSE: 2.0 - 3.0 Includes: PROPHYLAXIS for venous thrombosis, systemic embolization; TREATMENT for venous thrombosis and/or pulmonary embolus.HIGH RISK: Target INR is 2.5-3.5 for patients with mechanical heart valves.CBC (HEMOGRAM ONLY)2022-04-02 05:36:37 Test Item Value Reference Range Interpretation Comments WHITE BLOOD CELL COUNT (BEAKER) 18.0 K/ L 4.0-10.0 H (test code = 775) RED BLOOD CELL COUNT (BEAKER) 5.28 M/ L 4.20-5.80 (test code = 761) HEMOGLOBIN (BEAKER) (test code = 15.0 GM/DL 13.0-16.8 410) HEMATOCRIT (BEAKER) (test code = 46.5 % 36.0-50.0 411) MEAN CORPUSCULAR VOLUME (BEAKER) 88 fL 82-99 (test code = 753) MEAN CORPUSCULAR HEMOGLOBIN 28.4 pg 27.0-33.0 (BEAKER) (test code = 751) MEAN CORPUSCULAR HEMOGLOBIN CONC 32.3 GM/DL 32.0-36.0 (BEAKER) (test code = 752) RED CELL DISTRIBUTION WIDTH 14.0 % 12.0-15.0 (BEAKER) (test code = 412) PLATELET COUNT (BEAKER) (test 356 K/CU MM 150-430 code = 756) MEAN PLATELET VOLUME (BEAKER) 10.0 fL 6.0-11.5 (test code = 754) NUCLEATED RED BLOOD CELLS 0 /100 WBC 0-0 (BEAKER) (test code = 413) POCT-GLUCOSE [id number] 19:16:29 Test Item Value Reference Range Interpretation Comments POC-GLUCOSE METER 164 mg/dL 70-110 H : TESTED A T [facility] (BEAKER) (test code [address]ANCE [address], = 1538) [place] [address] 0: Collections Analyst/Techni macrina ID = [id number] for Abelardo Lillyer POCT-GLUCOSE [id number] 18:10:19 Test Item Value Reference Range Interpretation Comments POC-GLUCOSE METER 140 mg/dL 70-110 H : TESTED A T [facility] (BEAKER) (test code [address]ANCE [address], = 1538) [place] [address] 0: Collections Analyst/Techni macrina ID = [id number] for Delg ado, Kerry POCT-GLUCOSE [id number] 12:16:41 Test Item Value Reference Range Interpretation Comments POC-GLUCOSE METER 138 mg/dL 70-110 H : TESTED A T [facility] (BEAKER) (test code VANCE [address], = 1538) [place] [address] 0: Collections Analyst/Techni macrina ID = [id number] for Delg ado, Kerry RAD, CHEST, 1 VIEW, NON [id number] 07:47:00Reason for exam:- >PneumoniaShould this be performed at the bedside?->Yes [facility] 1980 Sex: MFINAL REPORT Chest AP portable erect History provided: Pneumonia COMPARISON STUDY: 03/30/2022 Heart size magnified by projection. Lungs are clear and vascularity normal. Midline catheteron the right with tip in the axillary vein. Signed: George Chan Verified Date/Time: 04/01/2022 07:47:04 Reading Location: [facility] Diagnostic Imaging Reading Room [place] [address] 1.310.12 [id number] 06:44:00 Test Item Value Reference Range Interpretation Comments PARTIAL THROMBOPLASTIN 66.7 seconds 25.8-34.5 H Final Information TIME (BEAKER) (test (Auto Ou tput) code = 760) POCT-GLUCOSE [id number] 05:54:58 Test Item Value Reference Range Interpretation Comments POC-GLUCOSE METER 154 mg/dL 70-110 H : TESTED A T [facility] (BEAKER) (test code PRATIBHAOO Justin [address]CG[address] DR, = 1538) [facility] 7[address] 0: Collections Analyst/Techni macrina ID = [id number] for Glenroy Estrella CBC (HEMOGRAM ONLY)2022-04-01 05:39:05 Test Item Value Reference Range Interpretation Comments WHITE BLOOD CELL COUNT (BEAKER) 16.5 K/ L 4.0-10.0 H (test code = 775) RED BLOOD CELL COUNT (BEAKER) 5.13 M/ L 4.20-5.80 (test code = 761) HEMOGLOBIN (BEAKER) (test code = 14.9 GM/DL 13.0-16.8 410) HEMATOCRIT (BEAKER) (test code = 45.3 % 36.0-50.0 411) MEAN CORPUSCULAR VOLUME (BEAKER) 88 fL 82-99 (test code = 753) MEAN CORPUSCULAR HEMOGLOBIN 29.0 pg 27.0-33.0 (BEAKER) (test code = 751) MEAN CORPUSCULAR HEMOGLOBIN CONC 32.9 GM/DL 32.0-36.0 (BEAKER) (test code = 752) RED CELL DISTRIBUTION WIDTH 14.2 % 12.0-15.0 (BEAKER) (test code = 412) PLATELET COUNT (BEAKER) (test 324 K/CU MM 150-430 code = 756) MEAN PLATELET VOLUME (BEAKER) 10.5 fL 6.0-11.5 (test code = 754) NUCLEATED RED BLOOD CELLS 0 /100 WBC 0-0 (BEAKER) (test code = 413) HEPATIC FUNCTION [id number] 05:36:17 Test Item Value Reference Range Interpretation Comments TOTAL PROTEIN (BEAKER) (test code = 6.2 gm/dL 6.0-8.5 770) ALBUMIN (BEAKER) (test code = 1145) 3.5 g/dL 3.5-5.0 BILIRUBIN TOTAL (BEAKER) (test code 0.6 mg/dL 0.1-1.2 = 377) BILIRUBIN DIRECT (BEAKER) (test 0.3 mg/dL 0.0-0.4 code = 706) ALKALINE PHOSPHATASE (BEAKER) (test 55 U/L 30-115 code = 346) AST (SGOT) (BEAKER) (test code = 7 U/L 5-40 353) ALT (SGPT) (BEAKER) (test code = 77 U/L 5-50 H 347) Collections Analyst ID - [id number] METABOLIC [id number] 05:36:16 Test Item Value Reference Range Interpretation Comments SODIUM (BEAKER) 137 meq/L 135-148 (test code = 381) POTASSIUM 4.1 meq/L 3.6-5.5 (BEAKER) (test code = 379) CHLORIDE (BEAKER) 97 meq/L 98-106 L (test code = 382) CO2 (BEAKER) 31 meq/L 20-29 H (test code = 355) BLOOD UREA 29 mg/dL 10-26 H NITROGEN (BEAKER) (test code = 354) CREATININE 1.41 mg/dL 0.50-1.20 H (BEAKER) (test code = 358) GLUCOSE RANDOM 151 mg/dL 70-110 H (BEAKER) (test code = 652) CALCIUM (BEAKER) 8.8 mg/dL 8.5-10.5 (test code = 697) EGFR (BEAKER) 65 Interpretatio n of eGFR (test code = mL/min/1.73 values Stage De scription 1092) sq m Result G1 Ana l or high >=90 G2 Mildly decreased 60-89 G3a Mildl y to moderately 45-5 9 G3b Moderately to s everely 30-44 G4 Sever ly decreased 15-29 G5 Kidney failure <15Repo rted eGFR is based on the CKD-EPI 2020 equation t hat does not use a race coefficientEsti mated GFR is not as accur ate as Creatinine Cathy melodie in predicting glom erular filtration rate . Estimated GFR is not appl icable for dialysis patien ts Collections Analyst ID - [id number] 05:36:16 Test Item Value Reference Range Interpretation Comments MAGNESIUM (BEAKER) (test code = 2.4 mg/dL 1.5-3.0 627) Collections Analyst ID - [id number] 05:27:15 Test Item Value Reference Range Interpretation Comments PROTIME (BEAKER) 14.9 seconds 9.8-12.0 H Final Infor mation (test code = 759) (Auto Outp ut) INR (BEAKER) (test 1.39 <=5.90 Final Inf ormation code = 370) (Auto Output) RECOMMENDED COUMADIN/WARFARIN INR THERAPY RANGESSTANDARD DOSE: 2.0 - 3.0 Includes: PROPHYLAXIS for venous thrombosis, systemic embolization; TREATMENT for venous thrombosis and/or pulmonary embolus.HIGH RISK: Target INR is 2.5-3.5 for patients with mechanical heart valves.POCT-GLUCOSE [id number] 20:19:45 Test Item Value Reference Range Interpretation Comments POC-GLUCOSE METER 179 mg/dL 70-110 H : TESTED A T [facility] (BEAKER) (test code VANCE [address] DR, = 1538) [facility] [address] 0: Collections Analyst/Techni macrina ID = [id number] for Glenroy Estrella BASIC METABOLIC [id number] 17:35:49 Test Item Value Reference Range Interpretation Comments SODIUM (BEAKER) 138 meq/L 135-148 (test code = 381) POTASSIUM 3.8 meq/L 3.6-5.5 (BEAKER) (test code = 379) CHLORIDE (BEAKER) 98 meq/L 98-106 (test code = 382) CO2 (BEAKER) 27 meq/L 20-29 (test code = 355) BLOOD UREA 31 mg/dL 10-26 H NITROGEN (BEAKER) (test code = 354) CREATININE 1.52 mg/dL 0.50-1.20 H (BEAKER) (test code = 358) GLUCOSE RANDOM 113 mg/dL 70-110 H (BEAKER) (test code = 652) CALCIUM (BEAKER) 9.2 mg/dL 8.5-10.5 (test code = 697) EGFR (BEAKER) 59 Interpretatio n of eGFR (test code = mL/min/1.73 values Stage De scription 1092) sq m Result G1 Ana l or high >=90 G2 Mildly decreased 60-89 G3a Mildl y to moderately 45-5 9 G3b Moderately to s everely 30-44 G4 Severl y decreased 15-29 G5 Kidney failure <15Reported eGF R is based on the CKD-EPI 2020 equation that d oes not use a race coefficientEsti mated GFR is not as accur ate as Creatinine Cathy sewell in predicting glom erular filtration rate . Estimated GFR is not appl icable for dialysis patien ts Collections Analyst ID - BRUCEPOCT-GLUCOSE [id number] 11:28:49 Test Item Value Reference Range Interpretation Comments POC-GLUCOSE METER 140 mg/dL 70-110 H : TESTED A T [facility] (BEAKER) (test code VANCE [address], = 1538) [facility] 7[address] 0: Collections Analyst/Techni macrina ID = [id number] for Stew Brenda stratton [id number] 06:35:02 Test Item Value Reference Range Interpretation Comments PARTIAL THROMBOPLASTIN 64.5 seconds 25.8-34.5 H Final Information TIME (BEAKER) (test (Auto Ou tput) code = 760) PROTHROMBIN [id number] 05:40:15 Test Item Value Reference Range Interpretation Comments PROTIME (BEAKER) 13.1 seconds 9.8-12.0 H Final Infor mation (test code = 759) (Auto Outp ut) INR (BEAKER) (test 1.21 <=5.90 Final Inf ormation code = 370) (Auto Output) RECOMMENDED COUMADIN/WARFARIN INR THERAPY RANGESSTANDARD DOSE: 2.0 - 3.0 Includes: PROPHYLAXIS for venous thrombosis, systemic embolization; TREATMENT for venous thrombosis and/or pulmonary embolus.HIGH RISK: Target INR is 2.5-3.5 for patients with mechanical heart valves.POCT-GLUCOSE [id number] 05:38:20 Test Item Value Reference Range Interpretation Comments POC-GLUCOSE METER 136 mg/dL 70-110 H : TESTED A T [facility] (BEAKER) (test code VANCE [address] DR, = 1538) [place] [address] 0: Collections Analyst/Techni macrina ID = [id number] for Glenroy Estrella [id number] 05:35:18 Test Item Value Reference Range Interpretation Comments MAGNESIUM (BEAKER) (test code = 2.5 mg/dL 1.5-3.0 627) Collections Analyst ID - PURACOMPREHENSIVE METABOLIC [id number] 05:35:17 Test Item Value Reference Range Interpretation Comments TOTAL PROTEIN 6.6 gm/dL 6.0-8.5 (BEAKER) (test code = 770) ALBUMIN (BEAKER) 3.8 g/dL 3.5-5.0 (test code = 1145) ALKALINE 65 U/L 30-115 PHOSPHATASE (BEAKER) (test code = 346) BILIRUBIN TOTAL 0.7 mg/dL 0.1-1.2 (BEAKER) (test code = 377) SODIUM (BEAKER) 138 meq/L 135-148 (test code = 381) POTASSIUM (BEAKER) 3.9 meq/L 3.6-5.5 (test code = 379) CHLORIDE (BEAKER) 97 meq/L 98-106 L (test code = 382) CO2 (BEAKER) (test 29 meq/L 20-29 code = 355) BLOOD UREA 32 mg/dL 10-26 H NITROGEN (BEAKER) (test code = 354) CREATININE 1.55 mg/dL 0.50-1.20 H (BEAKER) (test code = 358) GLUCOSE RANDOM 135 mg/dL 70-110 H (BEAKER) (test code = 652) CALCIUM (BEAKER) 9.0 mg/dL 8.5-10.5 (test code = 697) AST (SGOT) 16 U/L 5-40 (BEAKER) (test code = 353) ALT (SGPT) 102 U/L 5-50 H (BEAKER) (test code = 347) EGFR (BEAKER) 58 Interpretatio n of eGFR (test code = 1092) mL/min/1.[address] age Description sq m Result G1 Ana l or high >=90 G2 Mildly decreased 60-89 G3a Mildl y to moderately 45-5 9 G3b Moderately to s everely 30-44 G4 Severl y decreased 15-29 G5 Kidney failure <15Reported eGF R is based on the CKD-EPI 2020 equation that d oes not use a race coefficientEsti mated GFR is not as accur ate as Creatinine Cathy melodie in predicting glom erular filtration rate . Estimated GFR is not appl icable for dialysis patien ts Collections Analyst ID - PURACBC (HEMOGRAM ONLY)2022-03-31 05:11:10 Test Item Value Reference Range Interpretation Comments WHITE BLOOD CELL COUNT (BEAKER) 14.5 K/ L 4.0-10.0 H (test code = 775) RED BLOOD CELL COUNT (BEAKER) 4.86 M/ L 4.20-5.80 (test code = 761) HEMOGLOBIN (BEAKER) (test code = 13.9 GM/DL 13.0-16.8 410) HEMATOCRIT (BEAKER) (test code = 42.3 % 36.0-50.0 411) MEAN CORPUSCULAR VOLUME (BEAKER) 87 fL 82-99 (test code = 753) MEAN CORPUSCULAR HEMOGLOBIN 28.6 pg 27.0-33.0 (BEAKER) (test code = 751) MEAN CORPUSCULAR HEMOGLOBIN CONC 32.9 GM/DL 32.0-36.0 (BEAKER) (test code = 752) RED CELL DISTRIBUTION WIDTH 13.7 % 12.0-15.0 (BEAKER) (test code = 412) PLATELET COUNT (BEAKER) (test 320 K/CU MM 150-430 code = 756) MEAN PLATELET VOLUME (BEAKER) 10.2 fL 6.0-11.5 (test code = 754) NUCLEATED RED BLOOD CELLS 0 /100 WBC 0-0 (BEAKER) (test code = 413) POCT-GLUCOSE [id number] 19:25:57 Test Item Value Reference Range Interpretation Comments POC-GLUCOSE METER 128 mg/dL 70-110 H : TESTED A T [facility] (BEAKER) (test code [address]ANCE [address], = 1538) [place] [address] 0: Collections Analyst/Techni macrina ID = [id number] for Glenroy Estrella POCT-GLUCOSE [id number] 17:09:30 Test Item Value Reference Range Interpretation Comments POC-GLUCOSE METER 122 mg/dL 70-110 H : TESTED A T [facility] (BEAKER) (test code [address]ANCE [address], = 1538) [place] [address] 0: Collections Analyst/Techni macrina ID = [id number] for Cassie lopez Howard MISCELLANEOUS LAB [id number] 15:50:48 Test Item Value Reference Range Interpretation Comments SCAN RESULT (test code = see scanned report [id number]) POCT-GLUCOSE [id number] 11:54:25 Test Item Value Reference Range Interpretation Comments POC-GLUCOSE METER 152 mg/dL 70-110 H : TESTED A T [facility] (BEAKER) (test code VANCE [address], = 1538) [place] [address] 0: Collections Analyst/Techni macrina ID = [id number] for Cassie lopez Howard [id number] 07:11:44 Test Item Value Reference Range Interpretation Comments PARTIAL THROMBOPLASTIN 66.2 seconds 25.8-34.5 H Final Information TIME ([facility]) (test (Auto Ou tput) code = 760) RAD, CHEST, 1 VIEW, NON [id number] 06:52:00Reason for exam:- >PneumoniaShould this be performed at the bedside?->Yes [facility] : 1980 Sex: MFINAL REPORT Exam: RAD, CHEST, 1 VIEW, NON DEPTDate: 03/30/2022 6:51 AM Indication:PneumoniaComparison: Chest radiograph 03/28/2022. IMPRESSION: Lines/Tubes:None Lungs and Pleura :Decreased conspicuity of the previous identified finding in the right lower lung. Lungs appear clear on thisstudy. No pleural effusions. No pneumothorax. Heart/Mediastinum:Enlarged, unchanged. Bones/Soft Tissues: No acute osseous abnormality. Upper abdomen: Unremarkable. Signed: Darleen Desouza MDReport Verified Date/Time: 03/30/2022 06:52:10 BASIC METABOLIC [id number] 06:49:16 Test Item Value Reference Range Interpretation Comments SODIUM (BEAKER) 138 meq/L 135-148 (test code = 381) POTASSIUM 4.1 meq/L 3.6-5.5 (BEAKER) (test code = 379) CHLORIDE (BEAKER) 100 meq/L 98-106 (test code = 382) CO2 (BEAKER) 28 meq/L 20-29 (test code = 355) BLOOD UREA 30 mg/dL 10-26 H NITROGEN (BEAKER) (test code = 354) CREATININE 1.47 mg/dL 0.50-1.20 H (BEAKER) (test code = 358) GLUCOSE RANDOM 152 mg/dL 70-110 H (BEAKER) (test code = 652) CALCIUM (BEAKER) 8.8 mg/dL 8.5-10.5 (test code = 697) EGFR (BEAKER) 61 Interpretatio n of eGFR (test code = mL/min/1.73 values Stage De scription 1092) sq m Result G1 Ana l or high >=90 G2 Mildly decreased 60-89 G3a Mildl y to moderately 45-5 9 G3b Moderately to s everely 30-44 G4 Severl y decreased 15-29 G5 Kidney failure <15Reported eGF R is based on the CKD-EPI 202 equation that d oes not use a race coefficientEsti mated GFR is not as accur ate as Creatinine Cathy melodie in predicting glom erular filtration rate . Estimated GFR is not appl icable for dialysis patien ts Collections Analyst ID - [id number] 06:49:16 Test Item Value Reference Range Interpretation Comments MAGNESIUM (BEAKER) (test code = 2.4 mg/dL 1.5-3.0 627) Collections Analyst ID - NLYLEPROTHROMBIN [id number] 06:43:10 Test Item Value Reference Range Interpretation Comments PROTIME (BEAKER) 12.9 seconds 9.8-12.0 H Final Infor mation (test code = 759) (Auto Outp ut) INR (BEAKER) (test 1.19 <=5.90 Final Inf ormation code = 370) (Auto Output) RECOMMENDED COUMADIN/WARFARIN INR THERAPY RANGESSTANDARD DOSE: 2.0 - 3.0 Includes: PROPHYLAXIS for venous thrombosis, systemic embolization; TREATMENT for venous thrombosis and/or pulmonary embolus.HIGH RISK: Target INR is 2.5-3.5 for patients with mechanical heart valves.CBC (HEMOGRAM ONLY)2022-03-30 06:23:04 Test Item Value Reference Range Interpretation Comments WHITE BLOOD CELL COUNT (BEAKER) 12.1 K/ L 4.0-10.0 H (test code = 775) RED BLOOD CELL COUNT (BEAKER) 4.49 M/ L 4.20-5.80 (test code = 761) HEMOGLOBIN (BEAKER) (test code = 12.7 GM/DL 13.0-16.8 L 410) HEMATOCRIT (BEAKER) (test code = 39.8 % 36.0-50.0 411) MEAN CORPUSCULAR VOLUME (BEAKER) 89 fL 82-99 (test code = 753) MEAN CORPUSCULAR HEMOGLOBIN 28.3 pg 27.0-33.0 (BEAKER) (test code = 751) MEAN CORPUSCULAR HEMOGLOBIN CONC 31.9 GM/DL 32.0-36.0 L (BEAKER) (test code = 752) RED CELL DISTRIBUTION WIDTH 14.0 % 12.0-15.0 (BEAKER) (test code = 412) PLATELET COUNT (BEAKER) (test 270 K/CU MM 150-430 code = 756) MEAN PLATELET VOLUME (BEAKER) 10.5 fL 6.0-11.5 (test code = 754) NUCLEATED RED BLOOD CELLS 0 /100 WBC 0-0 (BEAKER) (test code = 413) POCT-GLUCOSE [id number] 06:18:33 Test Item Value Reference Range Interpretation Comments POC-GLUCOSE METER 152 mg/dL 70-110 H : TESTED A T [facility] (BEAKER) (test code VANCE [address] DR, = 1538) [place] [address] 0: Collections Analyst/Techni macrina ID = [id number] for LANC CAROLYNN, Glervi POCT-GLUCOSE [id number] 21:42:09 Test Item Value Reference Range Interpretation Comments POC-GLUCOSE METER 165 mg/dL 70-110 H : TESTED A T [facility] (BEAKER) (test code VANCE [address] DR, = 1538) [place] [address] 0: Collections Analyst/Techni macrina ID = [id number] for LANC CAROLYNN, Glervi POCT-GLUCOSE [id number] 17:53:23 Test Item Value Reference Range Interpretation Comments POC-GLUCOSE METER 127 mg/dL 70-110 H : TESTED A T [facility] (BEAKER) (test code VANCE [address] DR, = 1538) [place] [address] 0: Collections Analyst/Techni macirna ID = [id number] for Fatmata k (DivFlt)Larissa [id number] 16:26:31 Test Item Value Reference Range Interpretation Comments PARTIAL THROMBOPLASTIN 78.0 seconds 25.8-34.5 H Final Information TIME (BEAKER) (test (Auto Ou tput) code = 760) [id number] 16:11:20 Test Item Value Reference Range Interpretation Comments MAGNESIUM (BEAKER) (test code = 2.3 mg/dL 1.5-3.0 627) Collections Analyst ID - [id number] 16:11:20 Test Item Value Reference Range Interpretation Comments PHOSPHORUS (BEAKER) (test code = 5.0 mg/dL 2.5-4.5 H 604) Collections Analyst ID - BRUCEBASIC METABOLIC [id number] 16:11:19 Test Item Value Reference Range Interpretation Comments SODIUM (BEAKER) 138 meq/L 135-148 (test code = 381) POTASSIUM 4.2 meq/L 3.6-5.5 (BEAKER) (test code = 379) CHLORIDE (BEAKER) 102 meq/L 98-106 (test code = 382) CO2 (BEAKER) 24 meq/L 20-29 (test code = 355) BLOOD UREA 32 mg/dL 10-26 H NITROGEN (BEAKER) (test code = 354) CREATININE 1.60 mg/dL 0.50-1.20 H (BEAKER) (test code = 358) GLUCOSE RANDOM 156 mg/dL 70-110 H (BEAKER) (test code = 652) CALCIUM (BEAKER) 8.7 mg/dL 8.5-10.5 (test code = 697) EGFR (BEAKER) 55 Interpretatio n of eGFR (test code = mL/min/1.73 values Stage De scription 1092) sq m Result G1 Ana l or high >=90 G2 Mildly decreased 60-89 G3a Mildl y to moderately 45-5 9 G3b Moderately to s everely 30-44 G4 Severl y decreased 15-29 G5 Kidney failure <15Reported eGF R is based on the CKD-EPI 2020 equation that d oes not use a race coefficientEsti mated GFR is not as accur ate as Creatinine Cathy sewell in predicting glom erular filtration rate . Estimated GFR is not appl icable for dialysis patien ts Collections Analyst ID - BRUCEPOCT-GLUCOSE [id number] 16:06:02 Test Item Value Reference Range Interpretation Comments POC-GLUCOSE METER 127 mg/dL 70-110 H : TESTED A T [facility] (BEAKER) (test code VANCE [address] DR, = 1538) [facility] 2363 0: Collections Analyst/Techni macrina ID = [id number] for Mary Fitzgerald [id number] 06:31:09 Test Item Value Reference Range Interpretation Comments PHOSPHORUS (BEAKER) (test code = 5.2 mg/dL 2.5-4.5 H 604) Collections Analyst ID - PURACOMPREHENSIVE METABOLIC [id number] 06:31:08 Test Item Value Reference Range Interpretation Comments TOTAL PROTEIN 6.5 gm/dL 6.0-8.5 (BEAKER) (test code = 770) ALBUMIN (BEAKER) 4.0 g/dL 3.5-5.0 (test code = 1145) ALKALINE 73 U/L 30-115 PHOSPHATASE (BEAKER) (test code = 346) BILIRUBIN TOTAL 0.8 mg/dL 0.1-1.2 (BEAKER) (test code = 377) SODIUM (BEAKER) 140 meq/L 135-148 (test code = 381) POTASSIUM (BEAKER) 4.2 meq/L 3.6-5.5 (test code = 379) CHLORIDE (BEAKER) 104 meq/L 98-106 (test code = 382) CO2 (BEAKER) (test 24 meq/L 20-29 code = 355) BLOOD UREA 36 mg/dL 10-26 H NITROGEN (BEAKER) (test code = 354) CREATININE 1.77 mg/dL 0.50-1.20 H (BEAKER) (test code = 358) GLUCOSE RANDOM 156 mg/dL 70-110 H (BEAKER) (test code = 652) CALCIUM (BEAKER) 8.6 mg/dL 8.5-10.5 (test code = 697) AST (SGOT) 39 U/L 5-40 (BEAKER) (test code = 353) ALT (SGPT) 149 U/L 5-50 H (BEAKER) (test code = 347) EGFR (BEAKER) 49 Interpretatio n of eGFR (test code = 1092) mL/min/1.[address] age Description sq m Result G1 Ana l or high >=90 G2 Mildly decreased 60-89 G3a Mildl y to moderately 45-5 9 G3b Moderately to s everely 30-44 G4 Severl y decreased 15-29 G5 Kidney failure <15Reported eGF R is based on the CKD-EPI 2021 equation that d oes not use a race coefficientEsti mated GFR is not as accur ate as Creatinine Cathy melodie in predicting glom erular filtration rate . Estimated GFR is not appl icable for dialysis patien ts Collections Analyst ID - [id number] 06:31:08 Test Item Value Reference Range Interpretation Comments MAGNESIUM (BEAKER) (test code = 2.3 mg/dL 1.5-3.0 627) Collections Analyst ID - [id number] 06:30:45 Test Item Value Reference Range Interpretation Comments PARTIAL THROMBOPLASTIN 57.8 seconds 25.8-34.5 H Final Information TIME (BEAKER) (test (Auto Ou tput) code = 760) PROTHROMBIN [id number] 06:24:09 Test Item Value Reference Range Interpretation Comments PROTIME (BEAKER) 13.5 seconds 9.8-12.0 H Final Infor mation (test code = 759) (Auto Outp ut) INR (BEAKER) (test 1.25 <=5.90 Final Inf ormation code = 370) (Auto Output) RECOMMENDED COUMADIN/WARFARIN INR THERAPY RANGESSTANDARD DOSE: 2.0 - 3.0 Includes: PROPHYLAXIS for venous thrombosis, systemic embolization; TREATMENT for venous thrombosis and/or pulmonary embolus.HIGH RISK: Target INR is 2.5-3.5 for patients with mechanical heart valves.CBC W/PLT COUNT & AUTO [id number] 06:15:05 Test Item Value Reference Range Interpretation Comments WHITE BLOOD CELL COUNT (BEAKER) 12.5 K/ L 4.0-10.0 H (test code = 775) RED BLOOD CELL COUNT (BEAKER) 4.11 M/ L 4.20-5.80 L (test code = 761) HEMOGLOBIN (BEAKER) (test code = 11.9 GM/DL 13.0-16.8 L 410) HEMATOCRIT (BEAKER) (test code = 36.8 % 36.0-50.0 411) MEAN CORPUSCULAR VOLUME (BEAKER) 90 fL 82-99 (test code = 753) MEAN CORPUSCULAR HEMOGLOBIN 29.0 pg 27.0-33.0 (BEAKER) (test code = 751) MEAN CORPUSCULAR HEMOGLOBIN CONC 32.3 GM/DL 32.0-36.0 (BEAKER) (test code = 752) RED CELL DISTRIBUTION WIDTH 14.6 % 12.0-15.0 (BEAKER) (test code = 412) PLATELET COUNT (BEAKER) (test 242 K/CU MM 150-430 code = 756) MEAN PLATELET VOLUME (BEAKER) 10.9 fL 6.0-11.5 (test code = 754) NUCLEATED RED BLOOD CELLS 0 /100 WBC 0-0 (BEAKER) (test code = 413) NEUTROPHILS RELATIVE PERCENT 90 % (BEAKER) (test code = 429) LYMPHOCYTES RELATIVE PERCENT 6 % (BEAKER) (test code = 430) MONOCYTES RELATIVE PERCENT 3 % (BEAKER) (test code = 431) EOSINOPHILS RELATIVE PERCENT 0 % (BEAKER) (test code = 432) BASOPHILS RELATIVE PERCENT 0 % (BEAKER) (test code = 437) NEUTROPHILS ABSOLUTE COUNT 11.29 K/ L 1.80-8.00 H (BEAKER) (test code = 670) LYMPHOCYTES ABSOLUTE COUNT 0.72 K/ L 1.48-4.50 L (BEAKER) (test code = 414) MONOCYTES ABSOLUTE COUNT (BEAKER) 0.43 K/ L 0.00-1.30 (test code = 415) EOSINOPHILS ABSOLUTE COUNT 0.00 K/ L 0.00-0.50 (BEAKER) (test code = 416) BASOPHILS ABSOLUTE COUNT (BEAKER) 0.01 K/ L 0.00-0.20 (test code = 417) IMMATURE GRANULOCYTES-RELATIVE 0.40 % 0.00-0.00 H PERCENT (BEAKER) (test code = 2801) POCT-GLUCOSE [id number] 00:22:33 Test Item Value Reference Range Interpretation Comments POC-GLUCOSE METER 139 mg/dL 70-110 H : TESTED A T [facility] (BEAKER) (test code [address], = 1538) [place] [id number] 0: Collections Analyst/Techni macrina ID = [id number] for Alberto -Casino, Mirabelle POCT-GLUCOSE [id number] 00:22:33 Test Item Value Reference Range Interpretation Comments POC-GLUCOSE METER 142 mg/dL 70-110 H : TESTED A T [facility] (BEAKER) (test code [address], = 1538) [place] [address] 0: Collections Analyst/Techni macrina ID = [id number] for Alberto -Casino, Mirabelle [id number] 22:36:15 Test Item Value Reference Range Interpretation Comments PARTIAL THROMBOPLASTIN 40.7 seconds 25.8-34.5 H Final Information TIME (BEAKER) (test (Auto Ou tput) code = 760) POCT-GLUCOSE [id number] 21:40:56 Test Item Value Reference Range Interpretation Comments POC-GLUCOSE METER 160 mg/dL 70-110 H : TESTED A T [facility] (BEAKER) (test code [address], = 1538) [facility] [id number] 0: Collections Analyst/Techni macrina ID = [id number] for Bridget Cisneros [id number] 14:17:38 Test Item Value Reference Range Interpretation Comments PARTIAL THROMBOPLASTIN 43.6 seconds 25.8-34.5 H Final Information TIME (BEAKER) (test (Auto Ou tput) code = 760) RAD, CHEST, 1 VIEW, NON [id number] 07:53:00Reason for exam:- >PneumoniaShould this be performed at the bedside?->Yes [facility] : 1980 Sex: MFINAL REPORT Chest AP portable Comparison exam: 03/27/2022 History provided: Pneumonia Heart size magnified by projection. Patchy coarsening of markings persists in the right lower lobe which could represent a small focus of pneumonia. Lungs otherwise clear and vascularity normal. Signed: George Chan [facility] Verified Date/Time: 03/28/2022 07:53:10 Reading Location: [facility] Diagnostic Imaging Reading Room - [facility] 1.310.12 CBC W/PLT COUNT & AUTO DIFFERENTIAL 2022-03-28 06:12:56 Test Item Value Reference Range Interpretation Comments WHITE BLOOD CELL COUNT (BEAKER) 11.3 K/ L 4.0-10.0 H (test code = 775) RED BLOOD CELL COUNT (BEAKER) 4.33 M/ L 4.20-5.80 (test code = 761) HEMOGLOBIN (BEAKER) (test code = 12.1 GM/DL 13.0-16.8 L 410) HEMATOCRIT (BEAKER) (test code = 38.9 % 36.0-50.0 411) MEAN CORPUSCULAR VOLUME (BEAKER) 90 fL 82-99 (test code = 753) MEAN CORPUSCULAR HEMOGLOBIN 27.9 pg 27.0-33.0 (BEAKER) (test code = 751) MEAN CORPUSCULAR HEMOGLOBIN CONC 31.1 GM/DL 32.0-36.0 L (BEAKER) (test code = 752) RED CELL DISTRIBUTION WIDTH 14.3 % 12.0-15.0 (BEAKER) (test code = 412) PLATELET COUNT (BEAKER) (test 239 K/CU MM 150-430 code = 756) MEAN PLATELET VOLUME (BEAKER) 10.7 fL 6.0-11.5 (test code = 754) NUCLEATED RED BLOOD CELLS 0 /100 WBC 0-0 (BEAKER) (test code = 413) NEUTROPHILS RELATIVE PERCENT 87 % (BEAKER) (test code = 429) LYMPHOCYTES RELATIVE PERCENT 8 % (BEAKER) (test code = 430) MONOCYTES RELATIVE PERCENT 4 % (BEAKER) (test code = 431) EOSINOPHILS RELATIVE PERCENT 0 % (BEAKER) (test code = 432) BASOPHILS RELATIVE PERCENT 0 % (BEAKER) (test code = 437) NEUTROPHILS ABSOLUTE COUNT 9.91 K/ L 1.80-8.00 H (BEAKER) (test code = 670) LYMPHOCYTES ABSOLUTE COUNT 0.89 K/ L 1.48-4.50 L (BEAKER) (test code = 414) MONOCYTES ABSOLUTE COUNT (BEAKER) 0.49 K/ L 0.00-1.30 (test code = 415) EOSINOPHILS ABSOLUTE COUNT 0.00 K/ L 0.00-0.50 (BEAKER) (test code = 416) BASOPHILS ABSOLUTE COUNT (BEAKER) 0.01 K/ L 0.00-0.20 (test code = 417) IMMATURE GRANULOCYTES-RELATIVE 0.40 % 0.00-0.00 H PERCENT (BEAKER) (test code = 2801) TROPONIN [id number] 06:11:24 Test Item Value Reference Range Interpretation Comments TROPONIN I (BEAKER) (test code = 0.01 ng/mL 0.00-0.03 397) Troponin I (TnI) levels must be interpreted in the context of the presenting symptoms and the clinical findings. Elevated TnI levels indicate myocardial damage, but are not specific for ischemic heart disease. Elevated TnI levels are seen in patients with other cardiac conditions (including myocarditis and congestive heart failure), and slight TnI elevations occur in patients with other conditions, including sepsis, renal failure, acidosis, acute neurological disease, and persistent tachyarrhythmia.Collections Analyst ID - BRUCELIPID [id number] 06:10:42 Test Item Value Reference Range Interpretation Comments TRIGLYCERIDES (BEAKER) (test code = 59 mg/dL 540) CHOLESTEROL (BEAKER) (test code = 130 mg/dL 631) HDL CHOLESTEROL (BEAKER) (test code 37 mg/dL = 976) LDL CHOLESTEROL CALCULATED (BEAKER) 81 mg/dL (test code = 633) Triglyceride Reference Range: Low Risk <150 Borderline 150-199 High Risk 200- 499 Very High Risk >=500Cholesterol Reference Range: Low Risk <200 Borderline 200-239 High Risk >240HDL Cholesterol Reference Range: Low Risk >=60 High Risk <40LDL Cholesterol Reference Range: Optimal <100 Near Optimal 100-129 Borderline 130-159 High 160-189 Very High >=190 Collections Analyst ID - SHEBAC-REACTIVE [id number] 06:09:17 Test Item Value Reference Range Interpretation Comments C-REACTIVE PROTEIN (BEAKER) (test 1.52 mg/dL 0.00-1.00 H code = 676) Collections Analyst ID - [id number] 06:08:31 Test Item Value Reference Range Interpretation Comments PHOSPHORUS (BEAKER) (test code = 4.9 mg/dL 2.5-4.5 H 604) Collections Analyst ID - BRUCECOMPREHENSIVE METABOLIC [id number] 06:08:30 Test Item Value Reference Range Interpretation Comments TOTAL PROTEIN 6.5 gm/dL 6.0-8.5 (BEAKER) (test code = 770) ALBUMIN (BEAKER) 4.0 g/dL 3.5-5.0 (test code = 1145) ALKALINE 64 U/L 30-115 PHOSPHATASE (BEAKER) (test code = 346) BILIRUBIN TOTAL 0.7 mg/dL 0.1-1.2 (BEAKER) (test code = 377) SODIUM (BEAKER) 139 meq/L 135-148 (test code = 381) POTASSIUM (BEAKER) 5.0 meq/L 3.6-5.5 (test code = 379) CHLORIDE (BEAKER) 107 meq/L 98-106 H (test code = 382) CO2 (BEAKER) (test 22 meq/L 20-29 code = 355) BLOOD UREA 30 mg/dL 10-26 H NITROGEN (BEAKER) (test code = 354) CREATININE 1.92 mg/dL 0.50-1.20 H (BEAKER) (test code = 358) GLUCOSE RANDOM 152 mg/dL 70-110 H (BEAKER) (test code = 652) CALCIUM (BEAKER) 8.8 mg/dL 8.5-10.5 (test code = 697) AST (SGOT) 34 U/L 5-40 (BEAKER) (test code = 353) ALT (SGPT) 136 U/L 5-50 H (BEAKER) (test code = 347) EGFR (BEAKER) 45 Interpretatio n of eGFR (test code = 1092) mL/min/1.[address] age Description sq m Result G1 Ana l or high >=90 G2 Mildly decreased 60-89 G3a Mildl y to moderately 45-5 9 G3b Moderately to s everely 30-44 G4 Severl y decreased 15-29 G5 Kidney failure <15Reported eGF R is based on the CKD-EPI 2021 equation that d oes not use a race coefficientEsti mated GFR is not as accur ate as Creatinine Cathy sewell in predicting glom erular filtration rate . Estimated GFR is not appl icable for dialysis patien ts Collections Analyst ID - [id number] 06:08:30 Test Item Value Reference Range Interpretation Comments MAGNESIUM (BEAKER) (test code = 2.7 mg/dL 1.5-3.0 627) Collections Analyst ID - [id number] 05:59:39 Test Item Value Reference Range Interpretation Comments PARTIAL THROMBOPLASTIN 46.2 seconds 25.8-34.5 H Final Information TIME (BEAKER) (test (Auto Ou tput) code = 760) Urinalysis Microscopic [id number] 00:19:59 Test Item Value Reference Range Interpretation Comments RBC, UA (test code = 5-10 See_Comment [Autom ated message] 799-7) The system [employer] generated this result transmitted ref erence range: /HPF. Th e reference range was not used to interpr et this result as normal/abnormal . WBC, UA (test code = None Seen See_Comment [Autom ated message] 95862-6) The system [employer] generated this result transmitted ref erence range: /HPF. Th e reference range was not used to interpr et this result as normal/abnormal . Uric Acid Crystals Occasional (test code = 1583) [facility] [id number] 00:19:59 Test Item Value Reference Range Interpretation Comments RBC UA-MANUAL (BEAKER) (test 5-10 /HPF code = 1659) WBC UA-MANUAL (BEAKER) (test None Seen /HPF code = 1661) URIC ACID CRYSTALS (BEAKER) Occasional (test code = 1583) Rapid drug screen, [id number] 23:45:33 Test Item Value Reference Range Interpretation Comments Barbiturate Screen Negative Negative (test code = 09920-3) Benzodiazepine Screen Negative Negative (test code = 15040-9) Cocaine (Metab.) Negative Negative Screen (test code = 3397-7) Opiate Screen (test Negative Negative code = 93454-0) Cannabinoid Screen Negative Negative (test code = 77837-5) Amph/Methamph Screen Negative Negative (test code = 31292-6) Phencyclidine Screen Negative Negative (test code = 31570-9) pH, UA (test code = 5.5 5.0-8.0 5803-2) LASHON (test code = LASHON) DRUG CUTOFF CONC.Cocaine 300 ng/mLCannabinoid 50 ng/mLBenzodiazepine 200 ng/mLBarbiturate 200 ng/mLPhencyclidine 25 ng/mLOpiate 300 ng/mLAmphetamine/ 1000 ng/mL Methamphetamine This assay provides an unconfirmed qualitative test result for the clinical management of patients in emergency situations. Chain of custody not maintained. Some wpiw-iim-qlkozqo medications, as well as adulterants, may cause inaccurate results. Clinical correlation should be applied. A more comprehensive drug screen or confirmation of a detected drug may be performed upon request.Collections Analyst ID - Dorene Loredo Lab Interpretation Normal (test code = 83451-1) [facility], [id number] 23:45:33 Test Item Value Reference Range Interpretation Comments BARBITURATE URINE (BEAKER) (test Negative Negative code = 725) BENZODIAZEPINE SCREEN URINE (BEAKER) Negative Negative (test code = 726) COCAINE (METAB.) SCREEN (BEAKER) Negative Negative (test code = 1164) OPIATE SCREEN URINE (BEAKER) (test Negative Negative code = 734) CANNABINOID SCREEN URINE (BEAKER) Negative Negative (test code = 727) AMPH/METHAMPH SCREEN (BEAKER) (test Negative Negative code = 1438) PHENCYCLIDINE SCREEN URINE (BEAKER) Negative Negative (test code = 608) PH UA (BEAKER) (test code = 467) 5.5 5.0-8.0 DRUG CUTOFF CONC.Cocaine 300 ng/mLCannabinoid 50 ng/mLBenzodiazepine 200 ng/mLBarbiturate 200 ng/mLPhencyclidine 25 ng/mLOpiate 300 ng/mLAmphetamine/ 1000 ng/mL MethamphetamineThis assay provides an unconfirmed qualitative test result for the clinical management of patients in emergency situations. Chain of custody not maintained. Some yufk-vwn-gsggmwx medications, as well as adulterants, may cause inaccurate results. Clinical correlation should be applied. A more comprehensive drug screen or confirmation of a detected drug may be performed upon request.Collections Analyst ID - Dorene TUrinalysis with Microscopic If [id number] 23:27:20 Test Item Value Reference Range Interpretation Comments Color, UA (test code = 5778-6) Yellow Clarity, UA (test code = 5767-9) Clear Specific [employer], UA (test code = 1.020 1.001-1.035 5811-5) pH, UA (test code = 5803-2) 5.5 5.0-8.0 Protein, UA (test code = 36771-0) Negative Negative Glucose, UA (test code = 365) Negative Negative Ketones, UA (test code = 2514-8) Negative Negative Bilirubin, UA (test code = 09306-0) Negative Negative Blood, UA (test code = 83327-1) Moderate Negative A Nitrite, UA (test code = 5802-4) Negative Negative Leukocytes, UA (test code = 5799-2) Negative Negative Urobilinogen, UA (test code = 0.2 66957-0) Specimen Source (test code = 2795) Lab Interpretation (test code = Abnormal 23574-0) [facility] MICROSCOPIC IF [id number] 23:27:20 Test Item Value Reference Range Interpretation Comments COLOR (BEAKER) (test code = 470) Yellow CLARITY (BEAKER) (test code = 469) Clear SPECIFIC GRAVITY UA (BEAKER) (test 1.020 1.001-1.035 code = 468) PH UA (BEAKER) (test code = 467) 5.5 5.0-8.0 PROTEIN UA (BEAKER) (test code = Negative Negative 464) GLUCOSE UA (BEAKER) (test code = Negative Negative 365) KETONES UA (BEAKER) (test code = Negative Negative 371) BILIRUBIN UA (BEAKER) (test code = Negative Negative 462) BLOOD UA (BEAKER) (test code = 461) Moderate Negative A NITRITE UA (BEAKER) (test code = Negative Negative 465) LEUKOCYTE ESTERASE UA (BEAKER) (test Negative Negative code = 466) UROBILINOGEN UA (BEAKER) (test code 0.2 = 463) SOURCE(BEAKER) (test code = 2795) POCT-GLUCOSE [id number] 23:01:48 Test Item Value Reference Range Interpretation Comments POC-GLUCOSE METER 159 mg/dL 70-110 H : TESTED A T [facility] (BEAKER) (test code AMBERWOO [address], = 1538) [facility] 7707 0: Collections Analyst/Techni macrina ID = [id number] for Jayde Maria PLATELET [id number] 22:48:58 Test Item Value Reference Range Interpretation Comments PLATELET COUNT (BEAKER) (test 232 K/CU MM 150-430 code = 756) TROPONIN [id number] 22:37:38 Test Item Value Reference Range Interpretation Comments TROPONIN I (BEAKER) (test code = 0.02 ng/mL 0.00-0.03 397) Troponin I (TnI) levels must be interpreted in the context of the presenting symptoms and the clinical findings. Elevated TnI levels indicate myocardial damage, but are not specific for ischemic heart disease. Elevated TnI levels are seen in patients with other cardiac conditions (including myocarditis and congestive heart failure), and slight TnI elevations occur in patients with other conditions, including sepsis, renal failure, acidosis, acute neurological disease, and persistent tachyarrhythmia.Collections Analyst ID - [id number] 22:32:20 Test Item Value Reference Range Interpretation Comments PARTIAL THROMBOPLASTIN 23.2 seconds 25.8-34.5 L Final Information TIME (EMMAAKER) (test (Auto Ou tput) code = 760) TSH/FREE T4 IF [id number] 19:31:20 Test Item Value Reference Range Interpretation Comments THYROID STIMULATING HORMONE 0.420 uIU/mL 0.350-5.500 (BEAKER) (test code = 772) Collections Analyst ID - [id number] Echo W/Doppler(CW/PW/Color)2022-03-27 18:34:26Ejection FractionSLEH ECHO HEARTLAB MKCKESSON [facility] [id number] 17:13:34 Test Item Value Reference Range Interpretation Comments POC-GLUCOSE METER 172 mg/dL 70-110 H : TESTED A T [facility] ([employer] (test code [address], = 1538) [facility] 7707 0: Collections Analyst/Techni macrina ID = [id number] for Laila Jim TROPONIN [id number] 17:05:07 Test Item Value Reference Range Interpretation Comments TROPONIN I (BEAKER) (test code = 0.02 ng/mL 0.00-0.03 397) Troponin I (TnI) levels must be interpreted in the context of the presenting symptoms and the clinical findings. Elevated TnI levels indicate myocardial damage, but are not specific for ischemic heart disease. Elevated TnI levels are seen in patients with other cardiac conditions (including myocarditis and congestive heart failure), and slight TnI elevations occur in patients with other conditions, including sepsis, renal failure, acidosis, acute neurological disease, and persistent tachyarrhythmia.Collections Analyst ID - NOLIC-REACTIVE PROTEIN 2022-03-27 17:01:29 Test Item Value Reference Range Interpretation Comments C-REACTIVE PROTEIN (Wis.dmAKER) (test 2.44 mg/dL 0.00-1.00 H code = 676) Collections Analyst ID - NOLIHEMOGLOBIN [id number] 15:46:10 Test Item Value Reference Range Interpretation Comments HEMOGLOBIN A1C (BEAKER) (test code = 6.0 % 4.3-6.1 368) Collections Analyst ID - BRUCERAD, CHEST, 1 VIEW, NON [id number] 13:55:00Reason for exam:->Line confirmationShould this be performed at the bedside?->Yes [facility] 1980 Sex: MFINAL REPORT RAD, CHEST, 1 VIEW, NON DEPT TECHNIQUE: Frontal view(s) of the chest. INDICATION: Line confirmation COMPARISON: None FINDINGS/IMPRESSION: Lines/Tubes: None Lungs/pleura: Small focal opacity in the right lower lobe, please follow-up to resolution. No pleural effusion. No pneumothorax. Heart and Mediastinum: The cardiac silhouette is enlarged. Soft Tissues and Bones: Unremar kable. Signed: Gagan Begum Verified Date/Time: 03/27/2022 13:55:48 Reading Location: [facility] Diagnostic Imaging Reading Room - [address]12 B-TYPE NATRIURETIC FACTOR (BNP)2022-03-27 12:54:48 Test Item Value Reference Range Interpretation Comments B-TYPE NATRIURETIC PEPTIDE 1728 pg/mL 0-100 H (BEAKER) (test code = 700) Collections Analyst ID - OLIVIER BLACTIC ACID, [id number] 12:43:42 Test Item Value Reference Range Interpretation Comments LACTATE BLOOD VENOUS (2) (EMMAAKER) 1.83 mmol/L 0.50-2.00 (test code = 2872) Collections Analyst ID - OLIVIER BTROPONIN [id number] 12:35:27 Test Item Value Reference Range Interpretation Comments TROPONIN I (BEAKER) (test code = 0.02 ng/mL 0.00-0.03 397) Troponin I (TnI) levels must be interpreted in the context of the presenting symptoms and the clinical findings. Elevated TnI levels indicate myocardial damage, but are not specific for ischemic heart disease. Elevated TnI levels are seen in patients with other cardiac conditions (including myocarditis and congestive heart failure), and slight TnI elevations occur in patients with other conditions, including sepsis, renal failure, acidosis, acute neurological disease, and persistent tachyarrhythmia.Collections Analyst ID - OLIVIER BCOMPREHENSIVE METABOLIC [id number] 12:34:11 Test Item Value Reference Range Interpretation Comments TOTAL PROTEIN 6.8 gm/dL 6.0-8.5 (BEAKER) (test code = 770) ALBUMIN (BEAKER) 3.9 g/dL 3.5-5.0 (test code = 1145) ALKALINE 52 U/L 30-115 PHOSPHATASE (BEAKER) (test code = 346) BILIRUBIN TOTAL 0.8 mg/dL 0.1-1.2 (BEAKER) (test code = 377) SODIUM (BEAKER) 141 meq/L 135-148 (test code = 381) POTASSIUM (BEAKER) 5.3 meq/L 3.6-5.5 (test code = 379) CHLORIDE (BEAKER) 111 meq/L 98-106 H (test code = 382) CO2 (BEAKER) (test 19 meq/L 20-29 L code = 355) BLOOD UREA 22 mg/dL 10-26 NITROGEN (BEAKER) (test code = 354) CREATININE 1.59 mg/dL 0.50-1.20 H (BEAKER) (test code = 358) GLUCOSE RANDOM 160 mg/dL 70-110 H (BEAKER) (test code = 652) CALCIUM (BEAKER) 8.8 mg/dL 8.5-10.5 (test code = 697) AST (SGOT) 49 U/L 5-40 H (BEAKER) (test code = 353) ALT (SGPT) 141 U/L 5-50 H (BEAKER) (test code = 347) EGFR (BEAKER) 56 Interpretatio n of eGFR (test code = 1092) mL/min/1.[address] age Description sq m Result G1 Ana l or high >=90 G2 Mildly decreased 60-89 G3a Mildl y to moderately 45-5 9 G3b Moderately to s everely 30-44 G4 Severl y decreased 15-29 G5 Kidney failure <15Reported eGF R is based on the CKD-EPI 2020 equation that d oes not use a race coefficientEsti mated GFR is not as accur ate as Creatinine Cathy melodie in predicting glom erular filtration rate . Estimated GFR is not appl icable for dialysis patien ts Collections Analyst ID - OLIVIER [id number] 12:33:02 Test Item Value Reference Range Interpretation Comments MAGNESIUM (BEAKER) (test code = 2.4 mg/dL 1.5-3.0 627) Collections Analyst ID - OLIVIER [id number] 12:33:02 Test Item Value Reference Range Interpretation Comments PHOSPHORUS (BEAKER) (test code = 3.9 mg/dL 2.5-4.5 604) Collections Analyst ID - OLIVIER BBlood gas, [id number] 12:21:52 Test Item Value Reference Range Interpretation Comments pH, Arterial (test code 7.44 7.35-7.45 = 2744-1) pCO2, Arterial (test 32 See_Comment L [Autom ated code = 2018-09) message] The system which generated this result transmitted reference range : 35 - 45 mm Hg. The reference range was not used to interpret this result as normal/abnormal . pO2, Arterial (test 173 See_Comment H [Automa lurdes code = 2703-7) message] The system which generated this result transmitted reference range : 80 - 90 mm Hg. The reference range was not used to interpret this result as normal/abnormal . O2 Sat, Arterial (test 99.3 % 96.0-97.0 H code = 2708-6) HCO3, Arterial (test 21 mmol/L 21-29 code = 1960-4) Base Excess, Arterial -2.1 mmol/L -2.0-3.0 L (test code = 1925-7) Patient Temperature 36.5 (test code = 8310-5) Lab Interpretation Abnormal (test code = 42479-4) [facility], [id number] 12:21:52 Test Item Value Reference Range Interpretation Comments PH ARTERIAL (BEAKER) (test code = 7.44 7.35-7.45 383) PCO2 ARTERIAL (BEAKER) (test code 32 mm Hg 35-45 L = 384) PO2 ARTERIAL (BEAKER) (test code 173 mm Hg 80-90 H = 385) O2 SATURATION ARTERIAL (BEAKER) 99.3 % 96.0-97.0 H (test code = 386) HCO3 ARTERIAL (BEAKER) (test code 21 mmol/L 21-29 = 388) BASE EXCESS ARTERIAL (BEAKER) -2.1 mmol/L -2.0-3.0 L (test code = 387) PATIENT TEMPERATURE (BEAKER) 36.5 (test code = 1818) CBC W/PLT COUNT & AUTO [id number] 12:19:24 Test Item Value Reference Range Interpretation Comments WHITE BLOOD CELL COUNT (BEAKER) 9.2 K/ L 4.0-10.0 (test code = 775) RED BLOOD CELL COUNT (BEAKER) 4.55 M/ L 4.20-5.80 (test code = 761) HEMOGLOBIN (BEAKER) (test code = 13.0 GM/DL 13.0-16.8 410) HEMATOCRIT (BEAKER) (test code = 41.3 % 36.0-50.0 411) MEAN CORPUSCULAR VOLUME (BEAKER) 91 fL 82-99 (test code = 753) MEAN CORPUSCULAR HEMOGLOBIN 28.6 pg 27.0-33.0 (BEAKER) (test code = 751) MEAN CORPUSCULAR HEMOGLOBIN CONC 31.5 GM/DL 32.0-36.0 L (BEAKER) (test code = 752) RED CELL DISTRIBUTION WIDTH 13.9 % 12.0-15.0 (BEAKER) (test code = 412) PLATELET COUNT (BEAKER) (test 232 K/CU MM 150-430 code = 756) MEAN PLATELET VOLUME (BEAKER) 10.2 fL 6.0-11.5 (test code = 754) NUCLEATED RED BLOOD CELLS 0 /100 WBC 0-0 (BEAKER) (test code = 413) NEUTROPHILS RELATIVE PERCENT 87 % (BEAKER) (test code = 429) LYMPHOCYTES RELATIVE PERCENT 10 % (BEAKER) (test code = 430) MONOCYTES RELATIVE PERCENT 3 % (BEAKER) (test code = 431) EOSINOPHILS RELATIVE PERCENT 0 % (BEAKER) (test code = 432) BASOPHILS RELATIVE PERCENT 0 % (BEAKER) (test code = 437) NEUTROPHILS ABSOLUTE COUNT 8.05 K/ L 1.80-8.00 H (BEAKER) (test code = 670) LYMPHOCYTES ABSOLUTE COUNT 0.90 K/ L 1.48-4.50 L (BEAKER) (test code = 414) MONOCYTES ABSOLUTE COUNT (BEAKER) 0.24 K/ L 0.00-1.30 (test code = 415) EOSINOPHILS ABSOLUTE COUNT 0.00 K/ L 0.00-0.50 (BEAKER) (test code = 416) BASOPHILS ABSOLUTE COUNT (BEAKER) 0.01 K/ L 0.00-0.20 (test code = 417) IMMATURE GRANULOCYTES-RELATIVE 0.30 % 0.00-0.00 H PERCENT (BEAKER) (test code = 2801)
[2022-04-15] MEDS ORDERED: NA CHLORIDE 0.9% 250 ML ONE (16:25)
[2022-04-15 17:00] LABS: Absolute Lymphocytes (CBC) 2.1 K/uL (0.7-4.9); Lymphocytes % 26.3 % (15.3-44.8); MCV 85.9 fL (80-100); MPV 7.6 fL (7.6-11.3); RBC Red Blood Cell Count 4.19 M/uL (4.33-5.43)
[2022-04-15 17:17] LABS: Potassium 3.9 mmol/L (3.5-5.1); Troponin High Sensitivity 10.7 pg/mL (<58.9)
[2022-04-15 17:27] LABS: SARS-CoV-2 Antigen Rapid Res Negative (Negative)
[2022-04-15 18:00] LABS: Protime INR 7.71
--- NOTE | 2022-04-15 18:03 | EDPHYS ---
Physician Documentation [facility] Name: Justin Garza Age: 41 yrs Sex: Male : 1980 Arrival Date: 04/15/2022 Time: 15:27 Bed 13 Private MD: Clive Gonzalez E ED Physician Shaun Quinn Historical: - Allergies: 04/15 15:46 Amoxicillin; aa5 15:46 amoxicillin trihydrate; aa5 15:46 Bees; aa5 15:46 Demerol; aa5 15:46 Epinephrine; aa5 15:46 Iodine; aa5 15:46 loratadine; aa5 15:46 Nuts; aa5 15:46 Pseudoephedrine; aa5 15:46 pseudoephedrine sulfate\E\; aa5 15:46 SEAFOOD; aa5 15:46 Strawberries; aa5 15:59 Lisinopril; aa5 - PMHx: 15:46 Asthma; cardiomyopathy; CHF; GERD; Irregular heart rate; Seizures; SJS; aa5 15:59 Borderline diabetes; Kidney problems; cardiomyopathy; aa5 Vital Signs: 15:46 BP 89 / 65; Pulse 81; Resp 18 S; Temp 97.3(TE); Pulse Ox 98% on R/A; Weight 90.26 kg aa5 (R); Height 5 ft. 6 in. (167.64 cm) (R); 17:03 BP 107 / 83; Pulse 111; Resp 18; Pulse Ox 97% ; mb9 15:46 Body Mass Index 32.12 (90.26 kg, 167.64 cm) aa5 MDM: 15:47 Patient medically screened. [facility] 04/15 15:43 Order name: XRAY Chest (1 view) [facility] 04/15 15:43 Order name: EKG; Complete Time: 15:44 [facility] 04/15 15:43 Order name: Cardiac monitoring; Complete Time: 16:19 [facility] 04/15 15:43 Order name: O2 Per Protocol; Complete Time: 16:19 [facility] 04/15 15:43 Order name: O2 Sat Monitoring; Complete Time: 16:19 [facility] 04/15 15:43 Order name: EKG - Nurse/Tech; Complete Time: 16:52 [facility] 04/15 15:43 Order name: IV Saline Lock; Complete Time: 16:52 [facility] 04/15 15:43 Order name: Labs collected and sent; Complete Time: 16:52 [facility] 04/15 15:43 Order name: Basic Metabolic Panel [facility] 04/15 15:46 Order name: SARS RAPID [facility] 04/15 15:43 Order name: CBC with Diff [facility] 04/15 15:43 Order name: PT-INR [facility] 04/15 15:43 Order name: Troponin HS [facility] 04/15 17:07 Order name: Glucose, Ancillary Testing; Complete Time: 17:10 EDMS 04/15 17:15 Order name: CBC with Automated Diff; Complete Time: 17:16 EDMS 04/15 17:18 Order name: Basic Metabolic Panel; Complete Time: 17:18 EDMS 04/15 17:18 Order name: Troponin High Sensitivity; Complete Time: 17:18 EDMS 04/15 17:28 Order name: SARS-COV-2 Antigen Rapid; Complete Time: 17:30 EDMS 04/15 18:00 Order name: Protime (+INR); Complete Time: 18:01 EDMS Administered Medications: 16:52 Drug: NS 0.9% 250 ml Route: IV; Rate: bolus; Site: right antecubital; mb9 Disposition Summary: 04/15/22 18:02 Transfer Ordered Accepting Physician: Janitor Custodian jose Transfer Location: Other Acute Care Facility [facility] Reason: Higher level of care jm Condition: Stable jm Problem: new jmm Symptoms: are unchanged jm Diagnosis - Poisoning by anticoagulants, accidental (unintentional) [facility] Forms: - Medication Reconciliation Form jm - SBAR form [facility] Signatures: Dispatcher [employer] EDMS Lalo Barajas PA PA jmm Calderon, Audri, RN RN aa5 Ilana Turner RN RN mb9
--- NOTE | 2022-04-15 18:03 | ER ---
Nurse's Notes [facility] Name: Justin Garza Age: 41 yrs Sex: Male : 1980 Arrival Date: 04/15/2022 Time: 15:27 Bed 13 Private MD: Clive Gonzalez E Diagnosis: Poisoning by anticoagulants, accidental (unintentional) Presentation: 04/15 15:46 Chief complaint: Spouse and/or significant other states: "His blood pressure has been aa5 low since Friday and it's been 89/53, I am worried because he has been refusing to eat today because it makes him nauseated". Also reports elevated INR, takes warfarin. 15:46 Coronavirus screen: fatigue. Ebola Screen: Patient denies travel to an Ebola-affected [facility] area in the 21 days before illness onset. Initial Sepsis Screen: Does the patient meet any 2 criteria? Systolic BP < 90 mmHg. Does the patient have a suspected source of infection? No. Patient's initial sepsis screen is negative. Risk Assessment: Do you want to hurt yourself or someone else? Patient reports no desire to harm self or others. Onset of symptoms was April 15, 2022. 15:46 Acuity: ANNIE 2 aa5 15:46 Method Of Arrival: Wheelchair aa5 Historical: - Allergies: 15:46 Amoxicillin; aa5 15:46 amoxicillin trihydrate; aa5 15:46 Bees; aa5 15:46 Demerol; aa5 15:46 Epinephrine; aa5 15:46 Iodine; aa5 15:46 loratadine; aa5 15:46 Nuts; aa5 15:46 Pseudoephedrine; aa5 15:46 pseudoephedrine sulfate\\E\\; aa5 15:46 SEAFOOD; aa5 15:46 Strawberries; aa5 15:59 Lisinopril; aa5 - PMHx: 15:46 Asthma; cardiomyopathy; CHF; GERD; Irregular heart rate; Seizures; SJS; aa5 15:59 Borderline diabetes; Kidney problems; cardiomyopathy; aa5 Assessment: 16:18 Reassessment: pt brought back to ER room. mb9 16:30 General: Appears uncomfortable, Behavior is calm, cooperative, appropriate for age. mb9 Pain: Complains of pain in chest Quality of pain is described as pressure. Neuro: Landry Agitation-Sedation Scale (RASS): 0 - Alert and Calm Level of Consciousness is awake, obeys commands, lethargic, Oriented to person, place, time, situation, Appropriate for age. 16:30 Cardiovascular: Reports chest pain, lightheadedness, nausea, shortness of breath, Heart mb9 tones S1 S2 present Rhythm is sinus rhythm. Cardiovascular: life vest present. Respiratory: Airway is patent Respiratory effort is even, unlabored, Respiratory pattern is regular, symmetrical, Breath sounds are clear bilaterally. GI: Abdomen is round distended, Bowel sounds present X 4 quads. Abd is soft and non tender X 4 quads. Reports nausea, lack of appetite. : Urine is clear. EENT: No signs and/or symptoms were reported regarding the EENT system. Derm: Skin is normal. Musculoskeletal: Range of motion: intact in all extremities. 16:47 Reassessment: Rhythm on monitor showed ventricular tachycardia. ERP, Jenn, notified. mb9 No new orders at time. 16:48 Reassessment: pt rhythm sinus tachycardia on monior. mb9 Vital Signs: 15:46 BP 89 / 65; Pulse 81; Resp 18 S; Temp 97.3(TE); Pulse Ox 98% on R/A; Weight 90.26 kg aa5 (R); Height 5 ft. 6 in. (167.64 cm) (R); 17:03 BP 107 / 83; Pulse 111; Resp 18; Pulse Ox 97% ; mb9 15:46 Body Mass Index 32.12 (90.26 kg, 167.64 cm) aa5 ED Course: 15:27 Patient arrived in ED. mr 15:27 Clive Gonzalez MD is Private Physician. mr 15:32 Lalo Barajas PA is PHCP. jm 15:32 Shaun Quinn DO is Attending Physician. jmm 15:46 Arm band placed on. aa5 15:58 Triage completed. aa5 16:03 Radiology exam delayed due to pt was not found in waiting. az 16:15 EKG done, by ED staff, reviewed by Lalo CARRILLO. Inserted saline lock: 22 gauge in mb9 right antecubital area, using aseptic technique. 16:18 Ilana Turner RN is Primary Nurse. mb9 16:52 Basic Metabolic Panel Sent. mb9 16:52 SARS RAPID Sent. mb9 16:52 CBC with Diff Sent. mb9 16:52 PT-INR Sent. mb9 16:52 Troponin HS Sent. mb9 Administered Medications: 16:52 Drug: NS 0.9% 250 ml Route: IV; Rate: bolus; Site: right antecubital; mb9 Outcome: 18:02 ER care complete, transfer ordered by . jose Signatures: Lalo Barajas PA PA jmm Rivera, Mary mr Calderon, Audri RN RN aa5 Eliane Escalante, Nina, RN RN mb9
[2022-04-15] MEDS ORDERED: ONDANSETRON 4 MG/2 ML VIAL ONE (18:18)
--- NOTE | 2022-04-15 18:36 | RAD REPORT ---
EXAM DESCRIPTION: Ronald Single View/07/2022 6:02 pm CLINICAL HISTORY: Hypotension COMPARISON: March 2022 FINDINGS: The lungs appear clear of acute infiltrate. The heart is mildly enlarged. Artifact overli es the chest
--- NOTE | 2022-04-15 22:36 | RAD REPORT ---
EXAM DESCRIPTION: CT - Head Brain Wo Cont - 04/15/2022 10:24 pm CLINICAL HISTORY: high inr, nausea COMPARISON: Head Brain Wo Cont dated 01/12/2020; Head Brain Wo Cont dated 11/02/2016 TECHNIQUE: Noncontrast head CT images ad were obtained without IV contrast. Multiplanar reformats we re generated and reviewed. All CT scans are performed using dose optimization technique as appropriate and may include automated exposure control or mA/KV adjustment according to patient size. FINDINGS: No intracranial hemorrhage, mass, or edema. Midline structures are unremarkable. Normal ventricular caliber for age. Hunt-white matter differentiation is preserved, without evidence of acute infarct. No abnormal extra- axial fluid collections. Mastoid air cells and visualized portions of the paranasal sinuses are clear. No acute bony findings. IMPRESSION: No evidence of an acute intracranial process.
[2022-04-16 03:01] VITALS: TEMP 97.3
[2022-04-16 03:12] VITALS: BP 100/74; O2SAT 97
--- NOTE | 2022-04-16 17:35 | EKG ---
Test Date: 2022-04-15 Test Time: 16:34:26 Investment Banker: MB MEASUREMENT RESULTS: Intervals: Rate: 111 CA: QRSD: 90 QT: 474 QTc: 644 [place]: P: CA: QRS: -56 T: -3 INTERPRETIVE STATEMENTS: Sinus rhythm with PVCs Left axis deviation Anterior infarct, age undetermined Abnormal ECG Compared to ECG 03/27/2022 00:57:44 Ventricular premature complex(es) no longer present Myocardial infarct finding still present Electronically Signed On 04-16-22 17:32:39 OIM ARCHITECT by Heriberto Ivy
== END 2022-04-16 02:54 ==
LOC: ER 15:24
DX: T45.511A Poisoning by anticoagulants, accidental (unintentional), initial encounter (principal); R07.89 Other chest pain; R11.0 Nausea; I50.9 Heart failure, unspecified; Z79.01 Long term (current) use of anticoagulants; Z20.822 Contact with and (suspected) exposure to COVID-19
CPT/HCPCS: 93005; 85025; 80048; 36415; 85610; 82947; 83605; 84484; 83880; 70450; 71045; 96375; 96374; 99285; 87811; J2405; J7050

== ENCOUNTER 2022-04-30 09:24 | Emergency (ER) | payer BC ==
--- OUTSIDE RECORDS SUMMARY | 2022-04-30 09:32 | XMS REPORT | Continuity of Care Document ---
:1980 Author Organization [facility] t Address [address] [place] [address] [place] [id number] Care Team Providers Name Role Phone [facility] Foster DIEZ Primary Care Physician KOKO MARION Attending Clinician Unavailable Radha Rausch MD Attending Clinician Tori Henson MD Attending Clinician [phone] Koko Marion MD Attending Clinician RADHA RAUSCH Attending Clinician Unavailable ROBBIN ZULETA Attending Clinician Unavailable Clive Oglesby MD Attending Clinician Geetha Abbasi DO Attending Clinician Robbin Zuleta MD Attending Clinician [phone] Lia Perez MD Attending Clinician TORI HENSON Admitting Clinician Unavailable GEETHA ABBASI Admitting Clinician Unavailable Payers Payer Name Policy Type Policy Number Effective Date Expiration Date [facility]ad[id number] 2016 00:00:00 BLUE/ESSENTIALS Problems Condition Condition Condition Status Onset Resolution Last Treating Co mments Source Name Details Category Date Date Treatment Clinician Date LV (left LV (left Disease Recurre [facility] ventricula nce 3-07 Natalia kes r) mural r) mural 00:00: Medica l thrombus thrombus 00 Center Seizures Seizures Disease [facility] Prediabete Prediabete Disease Recurre [facility] nce 3[facility]07 [facility] 00:[facility] 00 Center Nonischemi Nonischemi Disease Recurre [facility] c c nce 3-07 [facility] cardiomyop cardiomyop 00:00: Me dical athy athy 00 Center Suprathera Suprathera Disease Active [facility] peutic INR peutic INR 3-07 Natalia kes 00:00: Medical 00 Center Acute on Acute on Disease Active [facility] systolic systolic 00:00: Medica l (congestiv (congestiv 00 Ce nter e) heart e) heart failure failure Acute Acute Disease Recurre [facility] respirator respirator nce 2-15 Natalia kes y failure y failure 00:00: Medi elena with with 00 Center hypoxia hypoxia Heart Heart Disease Active 2018-02 Overview: Method i failure failure [address] 00:00: g of this Hospita 00 note l might be different from the original. 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 7-31 st y y 00:00: Hospita 00 l Essential Essential Disease Active Met hodi hypertensi hypertensi [address] [facility] on on 00:00: Hospita 00 l Asthma Asthma Disease Active [facility] 4 st 00:00: Hospita 00 l ED ED Disease Active [facility] (erectile (erectile 05-12 st dysfunctio dysfunctio 00:00: Ho spita n) n) 00 l SOB SOB Disease Active [facility] (shortness (shortness 4-02 st of breath) of breath) 00:00: Ho spita 00 l Chest pain Chest pain Disease Active M ethodi 05-12 st 00:00: Hospita 00 l CHF CHF Disease Active [facility] (congestiv (congestiv 4-02 st e heart e heart 00:00: Hospita failure) failure) 00 l 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 05-12 st athy athy 00:00: Hospita secondary secondary 00 [...] Date Clinician EPHEDRIN Allergy Active Med Palpitations 0 S LSL E 2-17 00:00: 00 Ephedrin Propensi Active Palpitations [address] [facility] e ty to 2-17 [facility] adverse 00:00: Medical reaction 00 Center s NUT - Allergy Active 0 [facility] UNSPECIF 2-15 IED 00:00: 00 PSEUDOEP Allergy Active 0 [facility] HEDRINE 2-15 00:00: 00 SHELLFIS Allergy Active 2022-0 [facility] H 2-15 DERIVED 00:00: 00 STRAWBER Allergy Active 2022-0 [facility] RY 2-15 00:00: 00 IODINE Allergy Active High Anaphylaxis 2022-0 [facility] 2-15 00:00: 00 AMOXICIL Allergy Active 2022-0 [facility] ROSSY 2-15 00:00: 00 BEE Allergy Active 2022-0 [facility] POLLEN 2-15 00:00: 00 MEPERIDI Allergy Active 2022-0 [facility] NE 2-15 00:00: 00 EPINEPHR Allergy Active 2022-0 [facility] INE 2-15 00:00: 00 LORATADI Allergy Active 2022-0 [facility] NE 2-15 00:00: 00 HEPARIN Allergy Active 2022-[address] [facility] [address] 2-15 [facility] 00:00: Medical 00 Center Meperidi Propensi Active 2022-[address] ne ty to 2-15 [facility] adverse 00:00: Medical reaction 00 Center s Epinephr Propensi Active 2022-[address] ine ty to 2-15 [facility] adverse 00:00: Medical reaction 00 Center s Iodine Propensi Active Anaphylaxis 2022-[address] ty to 2-15 swelling [facility] adverse 00:00: Medical reaction 00 Center s Loratadi Propensi Active [facility] ne ty to 2-15 [facility] adverse 00:00: Medical reaction 00 Center s Nut - Propensi Active [facility] Unspecif ty to 2-15 [facility] ied adverse 00:00: Medical reaction 00 Center s Pseudoep Propensi Active [facility] hedrine ty to 2-15 [facility] adverse 00:00: Medical reaction 00 Center s Shellfis Propensi Active [facility] h ty to 2-15 [facility] Derived adverse 00:00: Medical reaction 00 Center s Strawber Propensi Active [facility] ry ty to 2-15 [facility] adverse 00:00: Medical reaction 00 Center s Amoxicil Propensi Active Abdominal [facility] rossy ty to 2-15 cramps [facility] adverse 00:00: Medical reaction 00 Center s Bee Propensi Active [facility] Pollen ty to 2-15 [facility] adverse 00:00: Medical reaction 00 Center s Fluticas Propensi Active Method i one ty to 4-02 st [...] Propensi Active Method i il ty to 4-02 st adverse 00:00: Hospita reaction 00 l s to drug Losartan Propensi Active Method i ty to 4-02 st adverse 00:00: Hospita [...] Stop Date Source Natural father Heart disease [facility] Natural father Heart disease [facility] Natural father Stroke [facility] Natural father Aneurysm [facility] Natural mother Heart disease [facility] Natural mother Hypertension [facility] Natural mother [facility]able bowel [facility] syndrome Natural sister Lymphoma [facility] Social History Social Habit Start Date Stop Date Quantity Comments Source History SDOH [facility] Alcohol Std Drinks Medica l Center History SDOH [facility] Alcohol Binge Medical [facility] History SDWY [facility] Transport Non-Med Medical Center Exposure to 2022-04-06 2022-04-[address] [facility] SARS-CoV-2 (event) 00:00:00 04:13:00 Medica l Center Alcohol intake 2022-04-16 2022-04-[address] [facility] 00:00:00 00:00:00 non-drinker Medical Cente r (finding) History [facility] 2022-04-16 2022-04-[address] [facility] Alcohol Frequency 00:00:00 00:00:00 Medical Center Tobacco use and 2022-03-27 2022-03-27 [address] [facility] exposure 00:00:00 00:00:00 non-user Medical Center History [facility] 2022-03-27 2022-03-[address] [facility] Transport Med 00:00:00 00:00:[address] History [facility] 2022-03-27 2022-03-[address] [facility] Housing Unable to 00:00:00 00:00:00 Medical Center Pay History [facility] 2022-03-27 2022-03-[address] [facility] Housing Places 00:00:00 00:00:00 Medical Ce nter Lived History [facility] 2022-03-27 2022-03-[address] [facility] Housing Homeless 00:00:00 00:00:00 Medical Center Last Year Alcohol Comment 2022-03-27 2022-03-27 Once every three [facility] 00:00:00 00:00:00 months Medical Center Sex Assigned At [address] Natalia kes 00:00:00 00:00:00 Medical Center Smoking Status Start Date Stop Date Source Never smoked tobacco [facility] Medications Ordered Filled Start Stop Current Ordering Indication Dosage Frequency Signature Comments Components Source Medication Medication Date Date Medication? Clinician (SIG) Name Name metFORMIN Yes 500mg Take [address] [facility] (GLUMETZA) 3-09 mg by [facility] 500 MG 13:27: mouth Medical (MOD) 24 hr 18 daily with Ce nter tablet breakfast. ergocalcife 2022-0 Yes [id number] Q7D Take [facility] rol 3-09 50,000 [facility] (ERGOCALCIF 13:27: Units by Me dical HEIDE) 1,250 18 mouth once Ce nter mcg (50,000 a week. unit) capsule pantoprazol 0 Yes 40mg QD Take [address] e 3-09 by mouth [facility] (PROTONIX) 13:27: daily. Medic al 40 MG 18 Center tablet aspirin 81 0 2022- No 81mg QD Take [address] MG EC 04-18- by mouth [facility] tablet 11:46: 00:00 daily. Medical 45 :00 Center furosemide 2022-2022- Yes 80mg Q.5D Take [address] (LASIX) 80 04-18 05-08 tablet (80 Natalia kes MG tablet 00:00: 23:59 mg total) Me dical 00 :00 by mouth 2 Center (two) times daily for 60 days. warfarin 2022- Yes 3mg QD Take [address] (COUMADIN, 04-18 04-08 tablet (3 Francia es JANTOVEN) 3 00:00: 23:59 mg total) Medical MG tablet 00 :00 by mouth Center daily for 30 days. metFORMIN Yes 500mg Take [address] (GLUMETZA) 2-24 mg by [facility] 500 MG 13:55: mouth Medical (MOD) 24 hr 07 daily with Ce nter tablet breakfast. ergocalcife 2022-0 Yes [id number] Q7D Take [facility] rol 2-24 50,000 [facility] (ERGOCALCIF 13:55: Units by Ca dical HEIDE) 1,250 07 mouth once Ce nter mcg (50,000 a week. unit) capsule pantoprazol 2022-0 Yes 40mg QD Take [address] e 2-24 by mouth [facility] (PROTONIX) 13:55: daily. Medic al 40 MG 07 Center tablet aspirin 81 2022-0 Yes 81mg QD Take [address] MG EC 2-24 by mouth [facility] tablet 13:55: daily. [address] lisinopriL 2022-0 2023- No 5mg QD Take [address] (PRINIVIL,Z 2-24 02-24 by mouth Francia es ESTRIL) 5 08:56: 00:00 daily. Medic al MG tablet 47 :00 Center metoprolol 2022-0 2023- No 25mg QD Take [address] succinate 2-24 02-24 by mouth [facility] (TOPROL-XL) 08:56: 00:00 daily. Med ical 25 MG 24 hr 47 :00 Center tablet amLODIPine 2022-0 2023- No 5mg QD Take [address] (NORVASC) 5 2-24 02-24 by mouth Francai es MG tablet 08:56: 00:00 daily. Medic al 47 :00 Center potassium 3-0 2023- No 20meq Q.5D Take [address] chloride 2-24 02-24 mEq by [facility] (KLOR-CON) 08:56: 00:00 mouth 2 Med ical 20 mEq 47 :00 (two) Center packet times daily. furosemide 2022-0 3- No 20mg Q.5D Take [address] (LASIX) 20 2-24 02-24 by mouth 2 Natalia kes MG tablet 08:56: 00:00 (two) Medica l 47 :00 times Center daily. lisinopriL 2022-0 3- No 5mg QD Take [address] (PRINIVIL,Z 2-24 02-24 by mouth Francia es ESTRIL) 5 08:56: 00:00 daily. Medic al MG tablet 47 :00 Center metoprolol 2022-0 3- No 25mg QD Take [address] succinate 2-24 02-24 by mouth [facility] (TOPROL-XL) 08:56: 00:00 daily. Med ical 25 MG 24 hr 47 :00 Center tablet amLODIPine 3-0 2023- No 5mg QD Take [address] (NORVASC) 5 2-24 02-24 by mouth Francia es MG tablet 08:56: 00:00 daily. Medic al 47 :00 Center potassium 3-0 2023- No 20meq Q.5D Take [address] chloride -05 04-24 mEq by [facility] (KLOR-CON) 08:56: 00:00 mouth 2 Med ical 20 mEq 47 :00 (two) Center packet times daily. furosemide 2022- No 20mg Q.5D Take [address] (LASIX) 20 04-05-24 by mouth 2 Natalia kes MG tablet [...] if pain unrelieved 5min after 1st dose. nitroglycer 2023- Yes Put [address] in 04-05- under [facility]ukes (NITROSTAT) 00:00: 23:59 tongue Med ical 0.4 MG SL 00 :00 every 5min Cent er tablet as needed for chest pain.No more than 3 doses in 15min.Call 911 if pain unrelieved 5min after 1st dose. furosemide 2022- Yes 40mg QD Take [address] (LASIX) 40 - 04-25 tablet (40 Natalia kes MG tablet 00:00: 23:59 mg total) Me dical 00 :00 by mouth Center daily for 60 days. sacubitriL- 2022- Yes .5{tbl} Q.5D Take 0.[address] valsartan 2-24 04-25 tablets by Francia es (ENTRESTO) 00:00: 23:59 mouth 2 Med ical 24-26 mg 00 :00 (two) Center tablet times daily for 60 days. sacubitriL- 2022- Yes [...] daily for Center packet 30 days. warfarin 2022-2022- Yes 6mg QD Take [address] (COUMADIN, 2-24 03-26 tablet (6 Francia es JANTOVEN) 6 00:00: 23:59 mg total) Medical MG tablet 00 :00 by mouth Center daily for 30 days. potassium 2022-2022- Yes 20meq QD Take [address] chloride 2-24 03-26 mEq by [facility] (KLOR-CON) 00:00: 23:59 mouth Medic al 20 mEq 00 :00 daily for Center packet 30 days. furosemide 2022- No 40mg QD Take [address] (LASIX) 40 2-03 05-09 tablet (40 Natalia kes MG tablet 00:00: 00:00 mg total) Me dical 00 :00 by mouth Center daily for 60 days. warfarin 2022- No 6mg QD Take [address] (COUMADIN, 2- 03-09 tablet (6 Francia es JANTOVEN) 6 00:00: 00:00 mg total) Medical MG tablet 00 :00 by mouth Center daily for 30 days. isosorbide 2020-0 Yes TAKE 1 [facility] di dinitrate 5-[address] (ISORDIL) 00:00: MOUTH Hospita 10 MG 00 THREE l tablet TIMES A DAY hydrALAZINE 2020-0 Yes TAKE 1 Meth yosi (APRESOLINE 5-[address] ) 25 MG 00:00: MOUTH Hospita tablet 00 THREE l TIMES A DAY isosorbide 2020-0 Yes TAKE 1 Metho di dinitrate 5-[address] (ISORDIL) 00:00: MOUTH Hospita 10 MG 00 THREE l tablet TIMES A DAY hydrALAZINE 2020-0 Yes TAKE 1 Meth yosi (APRESOLINE 5-[address] ) 25 MG 00:00: MOUTH Hospita tablet 00 THREE l TIMES A DAY isosorbide 2020-0 Yes TAKE 1 Metho di dinitrate 5-[address] (ISORDIL) 00:00: MOUTH Hospita 10 MG 00 THREE l tablet TIMES A DAY hydrALAZINE 2020-0 Yes TAKE 1 Meth yosi (APRESOLINE 5-[address] ) 25 MG 00:00: MOUTH Hospita tablet 00 THREE l TIMES A DAY isosorbide 2020-0 Yes TAKE 1 Metho di dinitrate 5-[address] (ISORDIL) 00:00: MOUTH Hospita 10 MG 00 THREE l tablet TIMES A DAY hydrALAZINE 2020-0 Yes TAKE 1 Meth yosi (APRESOLINE 5-[address] ) 25 MG 00:00: MOUTH Hospita tablet 00 THREE l TIMES A DAY montelukast 2020-0 Yes 10mg QD Take 10 mg Methodi (SINGULAIR) -[address] 10 mg 16:26: nightly. Hospita tablet 11 l albuterol 2019-0 Yes 2{puff} Q6H Inhale 2 M ethodi (PROAIR -[address] HFA,PROVENT 16:26: every 6 Hos ocsar [place] 11 (six) l HFA,VENTOLI hours as [...] 40 - by mouth st mg tablet 16:26: daily. Hospit a 11 l levalbutero 2019-0 Yes 1{ampul Q4H Take 1 M ethodi l (XOPENEX) -28 e} ampule by st 1.25 mg/3 16:26: nebulizati Ho spita mL 11 on every 4 l nebulizer (four) solution hours as needed for wheezing. nitroglycer 2019-[address] Metho di in 06-[address] (NITROSTAT) 16:26: tongue. Hos oscar 0.4 MG SL 11 l tablet aspirin 2019-0 Yes 81mg QD Take 81 mg Meth yosi (ECOTRIN) -[address] 81 MG 16:26: daily. Hospita enteric 11 l coated tablet aspirin 2020-0 Yes 81mg QD Take [...] Q4H Take 1 M ethodi l (XOPENEX) - e} ampule by st 1.25 mg/3 11:26: nebulizati Ho spita mL 11 on every 4 l nebulizer (four) solution hours as needed for wheezing. nitroglycer 2020-[address] Metho di in - under the st (NITROSTAT) 11:26: tongue. Hos [...] 40 4-[address] mg tablet 11:26: daily. Hospit a 11 l levalbutero 2020-0 Yes 1{ampul Q4H Take 1 M ethodi l (XOPENEX) 4-28 e} ampule by st 1.25 mg/3 11:26: nebulizati Ho spita mL 11 on every 4 l nebulizer (four) solution hours as needed for wheezing. nitroglycer 2020-[address] Metho di in - under the st (NITROSTAT) 11:26: tongue. Hos [...] 40 4-[address] mg tablet 11:26: daily. Hospit a 11 l levalbutero 2020-0 Yes 1{ampul Q4H Take 1 M ethodi l (XOPENEX) 4-28 e} ampule by st 1.25 mg/3 11:26: nebulizati Ho spita mL 11 on every 4 l nebulizer (four) solution hours as needed for wheezing. nitroglycer Yes Place Metho di in 06-[address] (NITROSTAT) 11:26: tongue. Hos oscar 0.4 MG SL 11 l tablet metoprolol 2018-02- No 50mg QD Take 1 Meth yosi [...] Hospi ta mg tablet 00 l lisinopril Yes 20mg QD Take 20 mg M ethodi (PRINIVIL,Z 5-[address] ESTRIL) 20 00:00: daily. Hospi ta mg tablet 00 l lisinopril Yes 20mg QD Take 20 mg M ethodi (PRINIVIL,Z 5-[address] ESTRIL) 20 00:00: daily. Hospi ta mg tablet 00 l lisinopril Yes 20mg QD Take [...] 167.6 cm WEIGHT 2022-03-27 12:50:00 91.627 kg Heart rate 2022-04-18 13:00:00 102 /min [facility] Systolic blood 2022-04-18 12:00:00 108 mm[Hg] [facility] Diastolic blood 2022-04-18 12:00:00 55 mm[Hg] [facility] Body temperature 2022-04-18 12:00:00 36.11 Trish [facility] Respiratory rate 2022-04-18 12:00:00 18 /min [facility] Oxygen saturation in 2022-04-18 12:00:00 100 /min [facility] Arterial blood by Medical Ce nter Pulse oximetry Systolic blood 2022-04-05 08:39:00 105 mm[Hg] [facility] Diastolic blood 2022-04-05 08:39:00 61 mm[Hg] [facility] Heart rate 2022-04-05 08:39:00 81 /min [facility] Body temperature 2022-04-05 08:39:00 36 Trish [facility] Respiratory rate 2022-04-05 08:39:00 20 /min [facility] Oxygen saturation in 2022-04-05 08:39:00 96 /min [facility] Arterial blood by Medical Ce nter Pulse oximetry Body weight 2022-04-05 05:35:00 87.2 kg [facility] BMI 2022-04-05 05:35:00 31.03 kg/m2 [facility] Body height 2022-03-27 12:50:00 167.6 cm [facility] Procedures Procedure Date / Time Performing Clinician Source Performed POCT-GLUCOSE METER 2022-04-18 11:31:00 Koko Marion [facility] POCT-GLUCOSE METER 2022-04-18 07:25:00 [facility] 2022-04-18 05:05:00 Radha Rausch [facility] CBC W/PLT COUNT & AUTO 2022-04-18 03:46:00 Radha Rausch [facility] COMPREHENSIVE METABOLIC 2022-04-18 03:46:00 Radha Rausch [facility] MAGNESIUM 2022-04-18 03:46:00 Koko Marion [facility] CBC W/PLT COUNT & AUTO 2022-04-18 03:46:00 Radha Rausch [facility] POCT-GLUCOSE METER 2022-04-17 20:58:00 Doni [facility] POCT-GLUCOSE METER 2022-04-17 17:04:00 Doni [facility] POCT-GLUCOSE METER 2022-04-17 12:04:00 Doni [facility] POCT-GLUCOSE METER 2022-04-17 07:56:00 Doni [facility] PROTHROMBIN TIME/INR 2022-04-17 04:29:00 Afaq, Radha Coleman [facility] CBC W/PLT COUNT & AUTO 2022-04-17 04:29:00 Afaq, Radha Recinos [facility] COMPREHENSIVE METABOLIC 2022-04-17 04:29:00 Afaq, Radha robison [facility] HEPATITIS PANEL, ACUTE 2022-04-17 04:29:00 Afaq, Radha Recinos [facility] CBC W/PLT COUNT & AUTO 2022-04-17 04:29:00 Afaq, Radha Recinos [facility] POCT-GLUCOSE METER 2022-04-16 20:36:00 Audra [facility] UREA NITROGEN, RANDOM 2022-04-16 12:28:00 Afaq, Radha Recinos [facility] URINE [facility] URINALYSIS WITH 2022-04-16 12:28:00 Afaq, Radha Recinos [facility] MICROSCOPIC IF INDICATED [facility] CREATININE, RANDOM URINE 2022-04-16 12:27:00 Afaq, Radha ernandez [facility] PROTEIN, RANDOM URINE 2022-04-16 12:27:00 Afaq, Radha Recinos [facility] POCT-GLUCOSE METER 2022-04-16 11:59:00 Audra [facility] POCT-GLUCOSE METER 2022-04-16 07:29:00 Audra [facility] ECG 12-LEAD 2022-04-16 06:54:41 Afaq, Radha Aquinoheer [facility] POCT-GLUCOSE METER 2022-04-16 03:53:00 Afaq, Radha Aquinoheer [facility] PROTHROMBIN TIME/INR 2022-04-16 03:48:00 Afaq, Radha Recinos C [facility] CBC W/PLT COUNT & AUTO 2022-04-16 03:48:00 Afaq, Pitoabdiaziz Recinos [facility] TROPONIN I 2022-04-16 03:48:00 Afaq, Radha Aquinoheer [facility] COMPREHENSIVE METABOLIC 2022-04-16 03:48:00 Afaq, Radha robison [facility] B-TYPE NATRIURETIC FACTOR 2022-04-16 03:48:00 Afaq, Pitoabdiaziz eisenberg [facility] ([facility]NP[facility] CBC W/PLT COUNT & AUTO 2022-04-16 03:48:00 Afaq, Pitoabdiaziz Recinos [facility] LACTIC ACID, VENOUS 2022-04-16 03:47:00 Afaq, Radha Recinos [facility] EKG-SCANNED 2022-04-16 00:00:00 Thania Beckman [facility] POCT-GLUCOSE METER 2022-04-05 11:45:00 Robbin Zuleta [facility] POCT-GLUCOSE METER 2022-04-05 04:46:00 Geetha Abbasi [facility] CBC (HEMOGRAM ONLY) 2022-04-05 04:04:00 Geetha Abbasi [facility] MAGNESIUM 2022-04-05 04:04:00 Geetha Abbasi [facility] PROTHROMBIN TIME/INR 2022-04-05 04:04:00 [facility] 2022-04-05 04:04:00 Geetha Abbasi [facility] APTT 2022-04-05 04:04:00 Lia Perez [facility] BASIC METABOLIC PANEL 2022-04-05 04:04:00 Robbin Zuleta [facility] APTT 2022-04-04 19:29:[address] [facility] POCT-GLUCOSE METER 2022-04-04 [facility]22-04-04 16:32:[facility] 12:19:[address] [facility] POCT-GLUCOSE METER 2022-04-04 11:22:[facility]SE [facility]ER 2022-04-04 05:06:00 [facility] ONLY) 2022-04-04 03:34[facility]04[facility]04 03:34[facility]00 [facility]INR 2022-04-04 03:34:00 [facility] 2022-04-04 [facility] 2022-04-04 03:34:[address] [facility] APTT 2022-04-04 03:34:00 Chris [facility] APTT 2022-04-03 20:25:[address] [facility] POCT-GLUCOSE METER 2022-04-03 19:24:00 Fili [facility] POCT-GLUCOSE METER 2022-04-03 16:37:[facility] 12:48:[address] [facility] POCT-GLUCOSE METER 2022-04-03 11:18:00 Fili [facility] POCT-GLUCOSE METER 2022-04-03 05:40:[facility] ONLY[facility] 2022-04-03 04:18:00 Fili [facility] MAGNESIUM 2022-04-03 04:18:[address] [facility] PROTHROMBIN TIME/INR 2022-04-03 04:18:[address] [facility] HEPATIC FUNCTION PANEL 2022-04-03 04:18:00 Fili [facility] BASIC METABOLIC PANEL 2022-04-03 04:18:[address] [facility] APTT 2022-04-03 04:18:00 Dm Ferrari [facility] POCT-GLUCOSE METER 2022-04-02 20:09:00 Abbasi [facility] POCT-GLUCOSE METER 2022-04-02 17:28:00 Fili [facility] ECG 12-LEAD 2022-04-02 10:54:56 Roya Mares [facility] ECG 12-LEAD 2022-04-02 10:54:56 Unknown, Hl7 Doctor [facility] ECG 12-LEAD 2022-04-02 10:54:56 Unknown, Hl7 Doctor [facility] POCT-GLUCOSE METER 2022-04-02 10:52:00 Fili [facility] XR CHEST 1 VIEW PORTABLE / 2022-04-02 09:11:00 Jazmin Adams [facility] POCT-GLUCOSE METER 2022-04-02 05:48:00 Fili [facility] CBC (HEMOGRAM ONLY) 2022-04-02 05:20:00 Fili [facility] MAGNESIUM 2022-04-02 05:20:[address] [facility] PROTHROMBIN TIME/INR 2022-04-02 05:20:[address] [facility] HEPATIC FUNCTION PANEL 2022-04-02 05:20:00 Fili [facility] BASIC METABOLIC PANEL 2022-04-02 05:20:[address] [facility] APTT 2022-04-02 05:20:00 [facility] PO[facility]SE METER 2022-04-01 19:01:00 Fili [facility] POCT-GLUCOSE METER 2022-04-01 16:27:00 Fili [facility] POCT-GLUCOSE METER 2022-04-01 11:36:00 Fili [facility] POCT-GLUCOSE METER 2022-04-01 04:58:00 Fili [facility] BASIC METABOLIC PANEL 2022-04-01 [facility] 2022-04-01 04:49:00 Fili [facility] MAGNESIUM 2022-04-01 04:49:00 [facility] PROT[facility] TIME/INR 2022-04-01 04:49:[address] [facility] HEPATIC FUNCTION PANEL 2022-04-01 04:49:00 Fili [facility] APTT 2022-04-01 04:49:[address] [facility] XR CHEST 1 VIEW PORTABLE / 2022-04-01 00:39:00 Jazmin Adams [facility] POCT-GLUCOSE METER 2022-03-31 19:16:00 Fili [facility] BASIC METABOLIC PANEL 2022-03-31 16:49:00 Chirs [facility] POCT-GLUCOSE METER 2022-03-31 11:16:00 Fili [facility] CBC (HEMOGRAM ONLY) 2022-03-31 05:01:00 Fili [facility] MAGNESIUM 2022-03-31 05:01:[address] [facility] PROTHROMBIN TIME/INR 2022-03-31 05:01:[address] [facility] COMPREHENSIVE METABOLIC 2022-03-31 05:01:00 [facility]ili [facility] [facility] APTT 2022-03-31 05:01:00 [facility] POCT-GLUCOSE METER 2022-03-31 05:00[facility]00 [facility] 2022-03-30 19:11:00 [facility] 2022-03-30 16:30:00 [facility] 2022-03-30 11:21:00 [facility] CBC (HEMOGRAM ONLY) 2022-03-30 06:14:00 [facility] BASIC METABOLIC PANEL 2022-03-30 06:14:00 [facility] MAGNESIUM 2022-03-30 06:14:00 [facility] PROTHROMBIN TIME/INR 2022-03-30 06:14:00 [facility] 2022-03-30 06:14:00 Dm Ferrari [facility] POCT-GLUCOSE METER 2022-03-30 06:06:00 [facility] XR CHEST 1 VIEW PORTABLE / 2022-03-30 00:22:00 Chris [facility] POCT-GLUCOSE METER 2022-03-29 20:52:00 Clive Oglesby Francois [facility] POCT-GLUCOSE METER 2022-03-29 17:36:00 Clive Oglesby [facility] BASIC METABOLIC PANEL 2022-03-29 15:31:00 Syd Huggins [facility] MAGNESIUM 2022-03-29 15:31:00 Syd Huggins [facility] PHOSPHORUS 2022-03-29 15:31:00 Syd Huggins [facility] APTT 2022-03-29 15:31:00 Chris [facility] POCT-GLUCOSE METER 2022-03-29 11:49:00 Clive Oglesby [facility] MISCELLANEOUS LAB ORDER 2022-03-29 10:55:00 Clive Oglesby [facility] ANGIOGRAM, CORONARY, WITH 2022-03-29 10:19:00 Chris [facility] LEFT HEART CATHETERIZATION [facility] AND LEFT VENTRICULOGRAM, WITH PTCA IF INDICATED CBC W/PLT COUNT & AUTO 2022-03-29 05:53:00 Hossein [facility] COMPREHENSIVE METABOLIC 2022-03-29 05:53:00 Chris [facility] MAGNESIUM 2022-03-29 05:53:00 [facility] 2022-03-29 05:53:00 [facility] 2022-03-29 05:53:00 [facility] PROTHROMBIN TIME/INR 2022-03-29 05:53:00 Syd Huggins [facility] CBC W/PLT COUNT & AUTO 2022-03-29 05:53:00 Kingston [facility] APTT 2022-03-28 22:14:00 [facility] POCT-GLUCOSE METER 2022-03-28 20:58:00 Mendel [facility] POCT-GLUCOSE METER 2022-03-28 16:38:00 Clive Oglesby [facility] APTT 2022-03-28 13:51:00 [facility] POCT-GLUCOSE METER 2022-03-28 11:44:00 Clive Oglesby [facility] APTT 2022-03-28 05:31:00 [facility] CBC W/PLT COUNT & AUTO 2022-03-28 05:31:00 [facility] COMPREHENSIVE METABOLIC 2022-03-28 05:31:00 Chris [facility] MAGNESIUM 2022-03-28 05:31:00 Chris [facility] PHOSPHORUS 2022-03-28 05:31:00 [facility] LIPID PANEL 2022-03-28 05:31:00 [facility] C-REACTIVE PROTEIN 2022-03-28 05:31:00 Bryan [facility] TROPONIN I 2022-03-28 05:31:00 [facility], [facility] CBC W/PLT COUNT & AUTO 2022-03-28 05:31:00 [facility] XR CHEST 1 VIEW PORTABLE / 2022-03-28 00:13:00 Bryan Jazmin [facility] PLATELET COUNT 2022-03-27 22:34:00 Syd Huggins [facility] POCT-GLUCOSE METER 2022-03-27 22:28:00 Clive Oglesby [facility] URINALYSIS WITH 2022-03-27 22:08:00 [facility] MICROSCOPIC IF INDICATED [facility] [place] RAPID DRUG SCREEN, URINE 2022-03-27 22:08:00 [facility] URINALYSIS MICROSCOPIC 2022-03-27 22:08:00 [facility] APTT 2022-03-27 22:06:00 Hossein [facility] TROPONIN I 2022-03-27 22:06:00 [facility] POCT-GLUCOSE METER 2022-03-27 16:56:00 Clive Oglesby [facility] C-REACTIVE PROTEIN 2022-03-27 16:30:00 [facility] TSH/FREE T4 IF INDICATED 2022-03-27 16:30:00 [facility] TROPONIN I 2022-03-27 16:30:00 [facility] ECG 12-LEAD 2022-03-27 13:15:05 Achchay, Kingston [facility] ECG 12-LEAD 2022-03-27 13:15:05 Unknown, Hl7 [facility] ECG 12-LEAD 2022-03-27 13:15:05 Unknown, Hl7 [facility] 2D ECHO W/ DOPPLER 2022-03-27 12:23:15 Syd Huggins [facility] (CW[facility]PW[facility]COLOR) [facility] LACTIC ACID, VENOUS 2022-03-27 12:20:00 Syd Huggins [facility] B-TYPE NATRIURETIC FACTOR 2022-03-27 12:19:00 Syd Huggins [facility] ([facility]) [facility] BLOOD GAS, ARTERIAL 2022-03-27 12:13:00 Syd Huggins [facility] COMPREHENSIVE METABOLIC 2022-03-27 12:07:00 Syd Huggins [facility] MAGNESIUM 2022-03-27 12:07:00 Syd Huggins [facility] PHOSPHORUS 2022-03-27 12:07:00 [facility] 2022-03-27 12:07:00 [facility] CBC W/PLT COUNT & AUTO 2022-03-27 12:07:00 Syd Huggins [facility] HEMOGLOBIN A1C 2022-03-27 12:07:00 Saul Kingston [facility] CBC W/PLT COUNT & AUTO 2022-03-27 12:07:00 Syd Huggins [facility] XR CHEST 1 VIEW PORTABLE / 2022-03-27 11:41:00 Syd Huggins [facility] VASCULAR DIAGRAM -SCAN 2022-03-27 00:00:00 Karuna [facility] PERMANENT LAB REPORT - 2022-03-27 00:00:00 Karuna [facility] CARDIAC CATH REPORT - SCAN 2022-03-27 00:00:00 Karuna [facility] EKG-SCANNED 2022-03-27 00:00:00 Provider, Default [facility] Plan of Care Planned Activity Planned Date Details Comments Source Future Scheduled 2025-03-[address] [facility]:00 (procedure) [code [facility] 65151256] Future Scheduled 2025-03-[address] [facility] 00:00:00 (procedure) [code = [facility] [id number]] Future Scheduled 2023-04-[address] [facility] 00:[facility]00 [facility] (12+) [code = Tobacco Cessation Counseling and Screening (12+)] Future Scheduled 2023-03-[address] [facility] Test 00:00:00 [facility] Scre[facility] (12+) [code = Tobacco Cessation Counseling and Screening (12+)] Future Scheduled 2022-04-05 COVID-19 VACCINE (#1) [facility] Test 09:23:13 [code = COVID-19 VACCINE (#1)] Future Scheduled 2022-04-05 Pneumococcal Vaccine: [facility] Test 09:23:13 Pediatrics (0 to 5 Years) and At-Risk Patients (6 to 64 Years) (1 - PCV) [code = Pneumococcal Vaccine: Pediatrics (0 to 5 Years) and At-Risk Patients (6 to 64 Years) (1 - PCV)] Future Scheduled 2022-04-05 Hepatitis C screening [facility] Test 09:23:13 (procedure) [code = [id number]] Future Scheduled 2022-04-05 INFLUENZA VACCINE [facility] Test 09:23:13 [code = INFLUENZA VACCINE] Future Scheduled 2022-04-05 COVID-19 VACCINE (#1) [facility] Test 09:23:13 [code = COVID-19 VACCINE (#1)] Future Scheduled 2022-04-05 Pneumococcal Vaccine: [facility] Test 09:23:13 Pediatrics (0 to 5 Years) and At-Risk Patients (6 to 64 Years) (1 - PCV) [code = Pneumococcal Vaccine: Pediatrics (0 to 5 Years) and At-Risk Patients (6 to 64 Years) (1 - PCV)] Future Scheduled 2022-04-05 [facility] 09:23:13 (procedure) [code = [id number]] Future Scheduled 2022-04-05 INFLUENZA VACCINE Method [facility] Test 09:23:13 [code = INFLUENZA VACCINE] Future Scheduled 2022-03-25 COVID-19 VACCINE (#1) [facility] Test 09:43:08 [code = COVID-19 VACCINE (#1)] Future Scheduled 2022-03-25 Pneumococcal Vaccine: [facility] Test 09:43:08 Pediatrics (0 to 5 Years) and At-Risk Patients (6 to 64 Years) (1 - PCV) [code = Pneumococcal Vaccine: Pediatrics (0 to 5 Years) and At-Risk Patients (6 to 64 Years) (1 - PCV)] Future Scheduled 2022-03-25 Hepatitis C screening [facility] Test 09:43:08 (procedure) [code = [id number]] Future Scheduled 2022-03-25 INFLUENZA VACCINE Method [facility] Test 09:43:08 [code = INFLUENZA VACCINE] Future Scheduled 2022-02-[address] [facility] Test 00:00:00 (12+) [code = Medical Center DEPRESSION SCREENING (12+)] Future Scheduled 2022-02-[address] [facility] Test 00:00:00 (12+) [code = Medical Center DEPRESSION SCREENING (12+)] Future Scheduled 2021-10-11 INFLUENZA VACCINE (#1) [facility] 00:00[facility]00 [code = INFLUENZA Medical Ce nter VACCINE (#1)] Future Scheduled 2021-10-11 INFLUENZA VACCINE (#1) [facility] 00:00:00 [code = INFLUENZA Medical Ce nter VACCINE (#1)] Future Scheduled 1998-12-04 DTAP/TDAP/TD [facility]ACCINES [facility] 00:00:00 (1 - Tdap) [code = Medical C enter DTAP/TDAP/TD VACCINES (1 - Tdap)] Future Scheduled 1998-12-04 DTAP/TDAP/TD VACCINES CH I [...] 0-64 YRS (1 - PCV)] Future Scheduled 1985-12-[address] [facility] Test 00:00:00 0-64 YRS (1 - PCV) Medical C enter [code = PNEUMOCOCCAL VACCINE 0-64 YRS (1 - PCV)] Future Scheduled 1980-06-04 COVID-19 VACCINE (#1) [facility] 00:00:00 [code = COVID-[address] VACCINE (#1)] Future Scheduled 1980-06-04 COVID-19 VACCINE (#1) [facility] 00:00:00 [code = COVID-[address] VACCINE (#1)] Future Scheduled COVID-19 VACCINE (1) Met [facility] Test [code = COVID-19 VACCINE (1)] Future Scheduled Hepatitis C screening [facility] Test (procedure) [code = [id number]] Future Scheduled INFLUENZA VACCINE [facility] Test [code = INFLUENZA VACCINE] Encounters Start End Encounter Admission Attending Care Care Encounter Source Date/Time Date/Time Type Type Clinicians Facility Department ID 2022-04-16 2022-04-18 Inpatient ER [facility]ON [id number] [facility] 13:27:00 K[facility]O 2022-04-16 2022-04-18 [facility] [id number] [facility] St 02:44:00 13:27:00 Encounter Tori Henson Sophia [facility] 2022-04-16 2022-04-16 Travel [facility] [id number] [facility] 00:00:00 [facility] 2022-03-27 2022-04-05 Inpatient ER BIMAL ZULETA Medical ICU [id number] [place] 11:06:00 13:45:00 ROBBIN 2022-03-27 2022-04-05 Hospital ER Clive Oglesby [facility] [id number] 11:06:00 13:45:00 Encounter Abbasi, [facility] 2022-03-27 2022-04-05 [facility] Clive Oglesby [facility] [id number] 11:06:00 13:45:00 Encounter Fili Geetha [facility] 2022-03-29 2022-03-[facility] [id number] 09:40:00 10:35:00 [facility] 2022-03-29 2022-03-29 [facility] [id number] 09:40:00 10:35:00 [facility] 2022-03-27 2022-03-27 Orders [facility] [id number] 00:00:00 00:00:00 Only [facility] 2022-03-27 2022-03-27 Travel [facility] [id number] [facility] 00:[facility]:00 00:00:00 [facility] 2022-03-27 2022-03-27 Orders [facility] [id number] 00:00:00 00:00:00 [facility] 2022-03-27 2022-03-27 Travel [facility] [id number] [facility] 00:[facility]:00 00:00:00 [facility] Results Test Description Test Time Test Comments Results Result Comments Source POC-Glucose meter 2022-04-18 11:42:49 Test Item Value Reference Range Interpretation [facility] POC-Glucose Meter (test code = 124 mg/dL 70-110 H : TESTED AT [facility] [address]) [facility] [id number]: Management Psychologist/Techni macrina ID = [id number] for Alysa [facility] Interpretation (test code = Abnormal 63997-8) [facility] [id number] 11:42:49 Test Item Value Reference Range Interpretation Comments POC-GLUCOSE METER 124 mg/dL 70-110 H : TESTED A T [facility] [address] (BEAKER) (test code [address], = 15[address]) [facility] 77 478: Management Psychologist/Techni macrina ID = [id number] for Alysa Orozco POCT-GLUCOSE [id number] 07:36:39 Test Item Value Reference Range Interpretation Comments POC-GLUCOSE METER 105 mg/dL 70-110 : TESTED A T [facility] [address] (BEAKER) (test code [address], = 15[address]) [place] [address]: Management Psychologist/Techni macrina ID = [id number] for Alysa Orozco PROTHROMBIN [id number] 06:06:58 Test Item Value Reference Range Interpretation Comments PROTIME (BEAKER) 30.9 seconds 9.3-12.0 H Final Infor mation (test code = 759) (Auto Outp ut) INR (BEAKER) (test 3.05 <=5.90 Final Inf ormation code = 370) (Auto Output) RECOMMENDED COUMADIN/WARFARIN INR THERAPY RANGESSTANDARD DOSE: 2.0 - 3.0 Includes: PROPHYLAXIS for venous thrombosis, systemic embolization; TREATMENT for venous thrombosis and/or pulmonary embolus.HIGH RISK: Target INR is 2.5-3.5 for patients with mechanical heart valves.COMPREHENSIVE METABOLIC PANEL 2022-04-18 04:45:26 Test Item Value Reference Range Interpretation Comments TOTAL PROTEIN 6.3 gm/dL 6.0-8.5 (BEAKER) (test code = 770) ALBUMIN (BEAKER) 3.6 g/dL 3.5-5.0 (test code = 1145) ALKALINE 47 U/L 30-115 PHOSPHATASE (BEAKER) (test code = 346) BILIRUBIN TOTAL 0.9 mg/dL 0.1-1.2 (BEAKER) (test code = 377) SODIUM (BEAKER) 139 meq/L 135-148 (test code = 381) POTASSIUM (BEAKER) 4.1 meq/L 3.6-5.5 (test code = 379) CHLORIDE (BEAKER) 104 meq/L 98-106 (test code = 382) CO2 (BEAKER) (test 25 meq/L 20-29 code = 355) BLOOD UREA 24 mg/dL 10-26 NITROGEN (BEAKER) (test code = 354) CREATININE 1.50 mg/dL 0.50-1.20 H (BEAKER) (test code = 358) GLUCOSE RANDOM 98 mg/dL 70-110 (BEAKER) (test code = 652) CALCIUM (BEAKER) 8.8 mg/dL 8.5-10.5 (test code = 697) AST (SGOT) 17 U/L 5-40 (BEAKER) (test code = 353) ALT (SGPT) 78 U/L 5-50 H (BEAKER) (test code = 347) EGFR (BEAKER) 60 Interpretatio n of eGFR (test code = 1092) mL/min/1.[address] age Description sq m Result G1 Ana l or high >=90 G2 Mildly decreased 60-89 G3a Mildl y to moderately 45- 59 G3b Moderately to s everely 30-44 G4 Severl y decreased 15-29 G5 Kidney failure <15Reported eGF R is based on the CKD-EPI 2020 equation that d oes not use a race coefficientEsti mated GFR is not as accur ate as Creatinine Cathy melodie in predicting glom erular filtration rate . Estimated GFR is not appl icable for dialysis patien ts Management Psychologist ID - [id number] ID - [id number] ID - [id number] ID - [id number] ID - [id number] ID - [id number] ID - [id number] ID - [id number] ID - [id number] ID - [id number] ID - [id number] ID - [id number] ID - [id number] ID - WGZC74Xwhiener ID - [id number] ID - [id number] 04:45:15 Test Item Value Reference Range Interpretation Comments MAGNESIUM (BEAKER) (test code = 2.3 mg/dL 1.5-3.0 627) Management Psychologist ID - [id number] ID - [id number] ID - [id number] ID - [id number] CBC W/PLT COUNT & AUTO [id number] 04:21:17 Test Item Value Reference Range Interpretation Comments WHITE BLOOD CELL COUNT (BEAKER) 4.8 K/ L 4.0-10.0 (test code = 775) RED BLOOD CELL COUNT (BEAKER) 3.91 M/ L 4.20-5.80 L (test code = 761) HEMOGLOBIN (BEAKER) (test code = 11.0 GM/DL 13.0-16.8 L 410) HEMATOCRIT (BEAKER) (test code = 35.5 % 36.0-50.0 L 411) MEAN CORPUSCULAR VOLUME (BEAKER) 91 fL 82-99 (test code = 753) MEAN CORPUSCULAR HEMOGLOBIN 28.1 pg 27.0-33.0 (BEAKER) (test code = 751) MEAN CORPUSCULAR HEMOGLOBIN CONC 31.0 GM/DL 32.0-36.0 L (BEAKER) (test code = 752) RED CELL DISTRIBUTION WIDTH 13.6 % 12.0-15.0 (BEAKER) (test code = 412) PLATELET COUNT (BEAKER) (test 185 K/CU MM 150-430 code = 756) MEAN PLATELET VOLUME (BEAKER) 10.0 fL 6.0-11.5 (test code = 754) NUCLEATED RED BLOOD CELLS 0 /100 WBC 0-0 (BEAKER) (test code = 413) NEUTROPHILS RELATIVE PERCENT 62 % (BEAKER) (test code = 429) LYMPHOCYTES RELATIVE PERCENT 26 % (BEAKER) (test code = 430) MONOCYTES RELATIVE PERCENT 5 % (BEAKER) (test code = 431) EOSINOPHILS RELATIVE PERCENT 6 % (BEAKER) (test code = 432) BASOPHILS RELATIVE PERCENT 1 % (BEAKER) (test code = 437) NEUTROPHILS ABSOLUTE COUNT 2.95 K/ L 1.80-8.00 (BEAKER) (test code = 670) LYMPHOCYTES ABSOLUTE COUNT 1.24 K/ L 1.48-4.50 L (BEAKER) (test code = 414) MONOCYTES ABSOLUTE COUNT (BEAKER) 0.23 K/ L 0.00-1.30 (test code = 415) EOSINOPHILS ABSOLUTE COUNT 0.29 K/ L 0.00-0.50 (BEAKER) (test code = 416) BASOPHILS ABSOLUTE COUNT (BEAKER) 0.03 K/ L 0.00-0.20 (test code = 417) IMMATURE GRANULOCYTES-RELATIVE 0.20 % 0.00-0.00 H PERCENT (BEAKER) (test code = 2801) POCT-GLUCOSE [id number] 21:10:20 Test Item Value Reference Range Interpretation Comments POC-GLUCOSE METER 114 mg/dL 70-110 H : TESTED A T [facility] [address] (BEAKER) (test code [address], = 1538) [place] [address]: Management Psychologist/Techni macrina ID = [id number] for amanda Antunez POCT-GLUCOSE [id number] 17:28:14 Test Item Value Reference Range Interpretation Comments POC-GLUCOSE METER 92 mg/dL 70-110 : TESTED A T [facility] [address] (BEAKER) (test code = [address], [address]) [place] [address]: Management Psychologist/Techni macrina ID = [id number] for Mitchell h, Matilda HEPATITIS PANEL, [id number] 12:53:45 Test Item Value Reference Range Interpretation Comments HEPATITIS A IGM ANTIBODY (BEAKER) Nonreactive Nonreactive (test code = 498) HEPATITIS B CORE IGM ANTIBODY Nonreactive Nonreactive (BEAKER) (test code = 645) HEPATITIS C ANTIBODY (BEAKER) Nonreactive Nonreactive (test code = 367) HEPATITIS B SURFACE ANTIGEN (2) Nonreactive Nonreactive (BEAKER) (test code = 2585) Management Psychologist ID - ADMINPOCT-GLUCOSE [id number] 12:16:18 Test Item Value Reference Range Interpretation Comments POC-GLUCOSE METER 109 mg/dL 70-110 : TESTED A T [facility] [address] (BEAKER) (test code [address], = 1538) [place] [address]: Management Psychologist/Techni macrina ID = [id number] for Mitchell h, Matilda POCT-GLUCOSE [id number] 08:28:37 Test Item Value Reference Range Interpretation Comments POC-GLUCOSE METER 94 mg/dL 70-110 : TESTED A T [facility] [address] (BEAKER) (test code = [address], [address]) [place] [address]: Management Psychologist/Techni macrina ID = [id number] for Mitchell h, Matilda PROTHROMBIN [id number] 06:15:10 Test Item Value Reference Range Interpretation Comments PROTIME (BEAKER) 45.1 seconds 9.3-12.0 H Final Infor mation (test code = 759) (Auto Outp ut) INR (BEAKER) (test 4.59 <=5.90 Final Inf ormation code = 370) (Auto Output) RECOMMENDED COUMADIN/WARFARIN INR THERAPY RANGESSTANDARD DOSE: 2.0 - 3.0 Includes: PROPHYLAXIS for venous thrombosis, systemic embolization; TREATMENT for venous thrombosis and/or pulmonary embolus.HIGH RISK: Target INR is 2.5-3.5 for patients with mechanical heart valves.COMPREHENSIVE METABOLIC PANEL 2022-04-17 05:51:17 Test Item Value Reference Range Interpretation Comments TOTAL PROTEIN 6.6 gm/dL 6.0-8.5 Specimen sligh tly (BEAKER) (test hemolyzed code = 770) ALBUMIN (BEAKER) 3.5 g/dL 3.5-5.0 Specimen sl ightly (test code = 1145) hemolyzed ALKALINE 49 U/L 30-115 PHOSPHATASE (BEAKER) (test code = 346) BILIRUBIN TOTAL 0.8 mg/dL 0.1-1.2 Specimen sli ghtly (BEAKER) (test hemolyzed code = 377) SODIUM (BEAKER) 141 meq/L 135-148 (test code = 381) POTASSIUM (BEAKER) 3.7 meq/L 3.6-5.5 Specimen slightly (test code = 379) hemolyzed CHLORIDE (BEAKER) 105 meq/L 98-106 (test code = 382) CO2 (BEAKER) (test 22 meq/L 20-29 code = 355) BLOOD UREA 28 mg/dL 10-26 H NITROGEN (BEAKER) (test code = 354) CREATININE 1.41 mg/dL 0.50-1.20 H Specimen slight ly (BEAKER) (test hemolyzed code = 358) GLUCOSE RANDOM 131 mg/dL 70-110 H (BEAKER) (test code = 652) CALCIUM (BEAKER) 9.0 mg/dL 8.5-10.5 (test code = 697) AST (SGOT) 31 U/L 5-40 Specimen slight ly (BEAKER) (test hemolyzed code = 353) ALT (SGPT) 100 U/L 5-50 H Specimen slight ly (BEAKER) (test hemolyzed code = 347) EGFR (BEAKER) 65 Interpretatio n of eGFR (test code = 1092) mL/min/1.[address] age Description sq m Result G1 Norm al or [...] not appl icable for dialysis patien ts Management Psychologist ID - LITOOperator ID - LITOOperator ID - LITOOperator ID - LITOOperator ID - LITOOperator ID - LITOOperator ID - LITOOperator ID - LITOOperator ID - LITOOperator ID - LITOOperator ID - LITOOperator ID - LITOOperator ID - LITOOperator ID - LITOOperator ID - LITOOperator ID - LITOOperator ID - L ITOOperator ID - LITOOperator ID - LITOCBC W/PLT COUNT & AUTO DIFFERENTIAL 2022-04-17 05:43:51 Test Item Value Reference Range Interpretation Comments WHITE BLOOD CELL COUNT (BEAKER) 5.1 K/ L 4.0-10.0 (test code = 775) RED BLOOD CELL COUNT (BEAKER) 3.88 M/ L 4.20-5.80 L (test code = 761) HEMOGLOBIN (BEAKER) (test code = 11.0 GM/DL 13.0-16.8 L 410) HEMATOCRIT (BEAKER) (test code = 34.8 % 36.0-50.0 L 411) MEAN CORPUSCULAR VOLUME (BEAKER) 90 fL 82-99 (test code = 753) MEAN CORPUSCULAR HEMOGLOBIN 28.4 pg 27.0-33.0 (BEAKER) (test code = 751) MEAN CORPUSCULAR HEMOGLOBIN CONC 31.6 GM/DL 32.0-36.0 L (BEAKER) (test code = 752) RED CELL DISTRIBUTION WIDTH 13.6 % 12.0-15.0 (BEAKER) (test code = 412) PLATELET COUNT (BEAKER) (test 189 K/CU MM 150-430 code = 756) MEAN PLATELET VOLUME (BEAKER) 10.2 fL 6.0-11.5 (test code = 754) NUCLEATED RED BLOOD CELLS 0 /100 WBC 0-0 (BEAKER) (test code = 413) NEUTROPHILS RELATIVE PERCENT 68 % (BEAKER) (test code = 429) LYMPHOCYTES RELATIVE PERCENT 22 % (BEAKER) (test code = 430) MONOCYTES RELATIVE PERCENT 5 % (BEAKER) (test code = 431) EOSINOPHILS RELATIVE PERCENT 3 % (BEAKER) (test code = 432) BASOPHILS RELATIVE PERCENT 1 % (BEAKER) (test code = 437) NEUTROPHILS ABSOLUTE COUNT 3.47 K/ L 1.80-8.00 (BEAKER) (test code = 670) LYMPHOCYTES ABSOLUTE COUNT 1.12 K/ L 1.48-4.50 L (BEAKER) (test code = 414) MONOCYTES ABSOLUTE COUNT (BEAKER) 0.27 K/ L 0.00-1.30 (test code = 415) EOSINOPHILS ABSOLUTE COUNT 0.16 K/ L 0.00-0.50 (BEAKER) (test code = 416) BASOPHILS ABSOLUTE COUNT (BEAKER) 0.05 K/ L 0.00-0.20 (test code = 417) IMMATURE GRANULOCYTES-RELATIVE 0.20 % 0.00-0.00 H PERCENT (BEAKER) (test code = 2801) POCT-GLUCOSE [id number] 20:47:32 Test Item Value Reference Range Interpretation Comments POC-GLUCOSE METER 120 mg/dL 70-110 H : TESTED A T [facility] 1317 (BEAKER) (test code [facility] [address], = 1538) [facility] 77 478: Management Psychologist/Techni macrina ID = [id number] for Alysa Orozco Urea Nitrogen, random [id number] 16:26:40 Test Item Value Reference Range Interpretation Comments Urea Nitrogen, Ur 584 mg/dL (test code = 3095-7) LASHON (test code = Reference Range: No LASHON) NormalsOperator ID - DB [facility]ANDOM [id number] 16:26:40 Test Item Value Reference Range Interpretation Comments UREA NITROGEN URINE (BEAKER) (test 584 mg/dL code = 538) Reference Range: No NormalsOperator ID - DBProtein, random [id number] 12:57:07 Test Item Value Reference Range Interpretation Comments Protein, Urine (test code 5 mg/dL 0-14 = 2888-6) LASHON (test code = LASHON) Management Psychologist ID - [id number] Lab Interpretation (test Normal code = 18320-9) [facility] [id number] 12:57:07 Test Item Value Reference Range Interpretation Comments PROTEIN, URINE (BEAKER) (test code = 5 mg/dL 0-14 1569) Management Psychologist ID - [id number], random [id number] 12:56:59 Test Item Value Reference Range Interpretation Comments Creatinine, Ur 85.2 mg/dL (test code = 2161-8) LASHON (test code = Reference Range: No LASHON) NormalsOperator ID - [id number] [facility] Center[facility]AT[facility], RANDOM [id number] 12:56:59 Test Item Value Reference Range Interpretation Comments CREATININE URINE (BEAKER) (test 85.2 mg/dL code = 375) Reference Range: No NormalsOperator ID - [id number] with Microscopic If [id number] 12:50:30 Test Item Value Reference Range Interpretation Comments Color, UA (test code = 5778-6) Yellow Clarity, UA (test code = 5767-9) Clear Specific [place], UA (test code = 1.015 1.001-1.035 5811-5) pH, UA (test code = 5803-2) 6.0 5.0-8.0 Protein, UA (test code = 32687-5) Negative Negative Glucose, UA (test code = 365) Negative Negative Ketones, UA (test code = 2514-8) Negative Negative Bilirubin, UA (test code = 49508-0) Negative Negative Blood, UA (test code = 08735-7) Negative Negative Nitrite, UA (test code = 5802-4) Negative Negative Leukocytes, UA (test code = 5799-2) Negative Negative Urobilinogen, UA (test code = 0.2 65863-3) Specimen Source (test code = 2795) [facility] CenterURINAL[facility]IS WITH MICROSCOPIC IF [id number] 12:50:30 Test Item Value Reference Range Interpretation Comments COLOR (BEAKER) (test code = 470) Yellow CLARITY (BEAKER) (test code = 469) Clear SPECIFIC GRAVITY UA (BEAKER) (test 1.015 1.001-1.035 code = 468) PH UA (BEAKER) (test code = 467) 6.0 5.0-8.0 PROTEIN UA (BEAKER) (test code = Negative Negative 464) GLUCOSE UA (BEAKER) (test code = Negative Negative 365) KETONES UA (BEAKER) (test code = Negative Negative 371) BILIRUBIN UA (BEAKER) (test code = Negative Negative 462) BLOOD UA (BEAKER) (test code = 461) Negative Negative NITRITE UA (BEAKER) (test code = Negative Negative 465) LEUKOCYTE ESTERASE UA (BEAKER) (test Negative Negative code = 466) UROBILINOGEN UA (BEAKER) (test code 0.2 = 463) SOURCE(BEAKER) (test code = 2795) POCT-GLUCOSE [id number] 12:10:39 Test Item Value Reference Range Interpretation Comments POC-GLUCOSE METER 110 mg/dL 70-110 : TESTED A T [facility] (BEAKER) (test code [address], = 1538) [place] [address]: Management Psychologist/Techni macrina ID = [id number] for Buff ord, Araceli POCT-GLUCOSE [id number] 07:39:51 Test Item Value Reference Range Interpretation Comments POC-GLUCOSE METER 112 mg/dL 70-110 H : TESTED A T [facility] (BEAKER) (test code [address], = 1538) [place] [address]: Management Psychologist/Techni macrina ID = [id number] for Buff ord, Araceli B-TYPE NATRIURETIC FACTOR (BNP)2022-04-16 04:28:27 Test Item Value Reference Range Interpretation Comments B-TYPE NATRIURETIC PEPTIDE 2445 pg/mL 0-100 H (BEAKER) (test code = 700) Management Psychologist ID - [id number] 04:22:48 Test Item Value Reference Range Interpretation Comments TROPONIN I (BEAKER) (test code = 397) < ng/mL 0.00-0.15 Troponin I (TnI) levels must be interpreted [...] failure, acidosis, acute neurological disease, and persistent tachyarrhythmia.Management Psychologist ID - [id number] METABOLIC [id number] 04:17:07 Test Item Value Reference Range Interpretation Comments TOTAL PROTEIN 7.0 gm/dL 6.0-8.5 (BEAKER) (test code = 770) ALBUMIN (BEAKER) 3.8 g/dL 3.5-5.0 (test code = 1145) ALKALINE 57 U/L 30-115 PHOSPHATASE (BEAKER) (test code = 346) BILIRUBIN TOTAL 0.7 mg/dL 0.1-1.2 (BEAKER) (test code = 377) SODIUM (BEAKER) 140 meq/L 135-148 (test code = 381) POTASSIUM (BEAKER) 4.2 meq/L 3.6-5.5 (test code = 379) CHLORIDE (BEAKER) 105 meq/L 98-106 (test code = 382) CO2 (BEAKER) (test 21 meq/L 20-29 code = 355) BLOOD UREA 30 mg/dL 10-26 H NITROGEN (BEAKER) (test code = 354) CREATININE 1.67 mg/dL 0.50-1.20 H (BEAKER) (test code = 358) GLUCOSE RANDOM 120 mg/dL 70-110 H (BEAKER) (test code = 652) CALCIUM (BEAKER) 9.0 mg/dL 8.5-10.5 (test code = 697) AST (SGOT) 40 U/L 5-40 (BEAKER) (test code = 353) ALT (SGPT) 122 U/L 5-50 H (BEAKER) (test code = 347) EGFR (BEAKER) 53 Interpretatio n of eGFR (test code = [...] not appl icable for dialysis patien ts Management Psychologist ID - [id number] ID - [id number] ID - [id number] ID - SESZ03Dcyjviwz ID - UEHT48Mvujuddt ID - TSJW52Qxtsuzds ID - WYCR66Ucalniwz ID - ROWH49Buswksyw ID - WBQY63Eztgoytk ID - NVMR67Fjkssuqy ID - GTUA13Zlqfgzfi ID - YNAK63Xpxvuhmy ID - SHGW21Ikdmyadt ID - AQBQ56Shefvwuu ID - ASHD31Rfiqshka ID - FMAD20Iqxzdvqv ID - JWDK18Wnmmufmz ID - [id number] ID - [id number] TIME/[id number] 04:15:11 Test Item Value Reference Range Interpretation Comments PROTIME (BEAKER) 71.3 seconds 9.3-12.0 H Final Infor mation (test code = 759) (Auto Outp ut) INR (BEAKER) (test 7.53 <=5.90 HH Final Inf ormation code = 370) (Auto Output) RECOMMENDED COUMADIN/WARFARIN INR THERAPY RANGESSTANDARD DOSE: 2.0 - 3.0 Includes: PROPHYLAXIS for venous thrombosis, systemic embolization; TREATMENT for venous thrombosis and/or pulmonary embolus.HIGH RISK: Target INR is 2.5-3.5 for patients with mechanical heart valves.LACTIC ACID, [id number] 04:14:49 Test Item Value Reference Range Interpretation Comments LACTATE BLOOD 2.18 mmol/L See_Comment HH Specimen sligh tly VENOUS (2) (BEAKER) hemolyze d [Automated (test code = 2872) message] The system which generated this result transmit lurdes reference range : 0.50-<2.00. The reference range was not used to interpr et this result as normal/abnormal . Management Psychologist ID - [id number] ID - [id number] ID - [id number] ID - [id number] POCT-GLUCOSE [id number] 04:04:21 Test Item Value Reference Range Interpretation Comments POC-GLUCOSE METER 116 mg/dL 70-110 H : TESTED A T [facility] (BEAKER) (test code [address], = 1538) [facility] [address]: Management Psychologist/Techni macrina ID = [id number] for Laba c, Theodora CBC W/PLT COUNT & AUTO [id number] 03:57:01 Test Item Value Reference Range Interpretation Comments WHITE BLOOD CELL COUNT (BEAKER) 5.9 K/ L 4.0-10.0 (test code = 775) RED BLOOD CELL COUNT (BEAKER) 4.18 M/ L 4.20-5.80 L (test code = 761) HEMOGLOBIN (BEAKER) (test code = 11.7 GM/DL 13.0-16.8 L 410) HEMATOCRIT (BEAKER) (test code = 37.5 % 36.0-50.0 411) MEAN CORPUSCULAR VOLUME (BEAKER) 90 fL 82-99 (test code = 753) MEAN CORPUSCULAR HEMOGLOBIN 28.0 pg 27.0-33.0 (BEAKER) (test code = 751) MEAN CORPUSCULAR HEMOGLOBIN CONC 31.2 GM/DL 32.0-36.0 L (BEAKER) (test code = 752) RED CELL DISTRIBUTION WIDTH 13.6 % 12.0-15.0 (BEAKER) (test code = 412) PLATELET COUNT (BEAKER) (test 182 K/CU MM 150-430 code = 756) MEAN PLATELET VOLUME (BEAKER) 9.3 fL 6.0-11.5 (test code = 754) NUCLEATED RED BLOOD CELLS 0 /100 WBC 0-0 (BEAKER) (test code = 413) NEUTROPHILS RELATIVE PERCENT 58 % (BEAKER) (test code = 429) LYMPHOCYTES RELATIVE PERCENT 33 % (BEAKER) (test code = 430) MONOCYTES RELATIVE PERCENT 7 % (BEAKER) (test code = 431) EOSINOPHILS RELATIVE PERCENT 2 % (BEAKER) (test code = 432) BASOPHILS RELATIVE PERCENT 1 % (BEAKER) (test code = 437) NEUTROPHILS ABSOLUTE COUNT 3.41 K/ L 1.80-8.00 (BEAKER) (test code = 670) LYMPHOCYTES ABSOLUTE COUNT 1.94 K/ L 1.48-4.50 (BEAKER) (test code = 414) MONOCYTES ABSOLUTE COUNT (BEAKER) 0.39 K/ L 0.00-1.30 (test code = 415) EOSINOPHILS ABSOLUTE COUNT 0.12 K/ L 0.00-0.50 (BEAKER) (test code = 416) BASOPHILS ABSOLUTE COUNT (BEAKER) 0.06 K/ L 0.00-0.20 (test code = 417) IMMATURE GRANULOCYTES-RELATIVE 0.20 % 0.00-0.00 H PERCENT (BEAKER) (test code = 2801) POC-Glucose [id number] 12:12:32 Test Item Value Reference Range Interpretation Comments POC-Glucose Meter (test 151 mg/dL 70-110 H : TE STED AT [facility] code = 1538) [address], [place] [address]: Management Psychologist/Techni macrina ID = [id number] for Devonte, Brenda Lab Interpretation (test Abnormal code = 40019-5) [facility] [id number] 12:12:32 Test Item Value Reference Range Interpretation Comments POC-GLUCOSE METER 151 mg/dL 70-110 H : TESTED A T [facility] (BEAKER) (test code [address], = 1538) [place] [address]: Management Psychologist/Techni macrina ID = [id number] for Stew art, Brenda BASIC METABOLIC [id number] 08:06:34 Test Item Value Reference Range Interpretation [...] not appl icable for dialysis patien ts Management Psychologist ID - NLYLEHEPATIC FUNCTION [id number] 05:10:40 Test Item Value Reference Range Interpretation [...] code = 102 U/L 5-50 H 347) Management Psychologist ID - Dorene [id number] 05:10:40 Test Item Value Reference Range Interpretation Comments MAGNESIUM (BEAKER) (test code = 2.3 mg/dL 1.5-3.0 627) Management Psychologist ID - Dorene TPOCT-GLUCOSE [id number] 04:58:32 Test Item Value Reference Range Interpretation Comments POC-GLUCOSE METER 140 mg/dL 70-110 H : TESTED A T [facility] (BEAKER) (test code [address], = 1538) [place] [address]: Management Psychologist/Techni macrina ID = [id number] for Glenroy Estrella PROTHROMBIN TIME/[id number] 04:55:34 Test Item Value Reference Range Interpretation [...] is 2.5-3.5 for patients with mechanical heart valves.[id number] 04:55:31 Test Item Value Reference Range Interpretation [...] WBC 0-0 (BEAKER) (test code = 413) [id number] 21:05:24 Test Item Value Reference Range Interpretation Comments PARTIAL THROMBOPLASTIN 81.3 seconds 25.8-34.5 H Final Information TIME (BEAKER) (test (Auto Ou tput) code = 760) POCT-GLUCOSE [id number] 19:49:22 Test Item Value Reference Range Interpretation Comments POC-GLUCOSE METER 170 mg/dL 70-110 H : TESTED A T [facility] (BEAKER) (test code [address], = 1538) [facility] [address] 0: Management Psychologist/Techni macrina ID = [id number] for Glenroy Estrella POCT-GLUCOSE [id number] 16:43:38 Test Item Value Reference Range Interpretation Comments POC-GLUCOSE METER 115 mg/dL 70-110 H : TESTED A T [facility] (BEAKER) (test code [address], = 1538) [place] [address] 0: Management Psychologist/Techni macrina ID = [id number] for Esau Nunez [id number] 12:43:54 Test Item Value Reference Range Interpretation Comments PARTIAL THROMBOPLASTIN 69.0 seconds 25.8-34.5 H Final Information TIME (BEAKER) (test (Auto Ou tput) code = 760) POCT-GLUCOSE [id number] 12:07:16 Test Item Value Reference Range Interpretation Comments POC-GLUCOSE METER 97 mg/dL 70-110 : TESTED A T [facility] (BEAKER) (test code = [address], 1538) [place] [address] 0: Management Psychologist/Techni macrina ID = [id number] for Esau Nunez POCT-GLUCOSE [id number] 05:17:50 Test Item Value Reference Range Interpretation Comments POC-GLUCOSE METER 150 mg/dL 70-110 H : TESTED A T [facility] (BEAKER) (test code [address], = 1538) [place] [address] 0: Management Psychologist/Techni macrina ID = [id number] for Glenroy Estrella [id number] 04:21:48 Test Item Value Reference Range Interpretation Comments PARTIAL THROMBOPLASTIN 112.8 seconds 25.8-34.5 H Carmen l Information TIME (BEAKER) (test (Auto Ou tput) code = 760) PROTHROMBIN TIME/[id number] 04:19:56 Test Item Value Reference Range Interpretation [...] is 2.5-3.5 for patients with mechanical heart valves.[id number] 04:16:16 Test Item Value Reference Range Interpretation Comments MAGNESIUM (BEAKER) (test code = 2.4 mg/dL 1.5-3.0 627) Management Psychologist ID - [facility] [id number] 04:16:16 Test Item Value Reference Range Interpretation [...] (test code = 46 U/L 5-50 347) Management Psychologist ID - [facility] METABOLIC [id number] 04:16:15 Test Item Value Reference Range Interpretation [...] high >=90 G2 Mildly decreased 60-89 G3a Mild ly to moderately 45-5 9 G3b Moderately to [...] not appl icable for dialysis patien ts Management Psychologist ID - PURACBC (HEMOGRAM ONLY)2022-04-04 03:51:50 Test [...] WBC 0-0 (BEAKER) (test code = 413) [id number] 23:41:36 Test Item Value Reference Range Interpretation Comments PARTIAL THROMBOPLASTIN TIME 79.4 seconds 25.8-34.5 H (BEAKER) (test code = 760) POCT-GLUCOSE [id number] 20:50:05 Test Item Value Reference Range Interpretation Comments POC-GLUCOSE METER 191 mg/dL 70-110 H : TESTED A T [facility] (BEAKER) (test code [address], = 1538) [place] [address] 0: Management Psychologist/Techni macrina ID = [id number] for Glenroy Estrella POCT-GLUCOSE [id number] 17:19:22 Test Item Value Reference Range Interpretation Comments POC-GLUCOSE METER 134 mg/dL 70-110 H : TESTED A T [facility] (BEAKER) (test code [address], = 1538) [place] [address] 0: Management Psychologist/Techni macrina ID = [id number] for Stew art, Brenda [id number] 13:32:07 Test Item Value Reference Range Interpretation Comments PARTIAL THROMBOPLASTIN 78.4 seconds 25.8-34.5 H Final Information TIME (BEAKER) (test (Auto Ou tput) code = 760) POCT-GLUCOSE [id number] 11:30:42 Test Item Value Reference Range Interpretation Comments POC-GLUCOSE METER 134 mg/dL 70-110 H : TESTED A T [facility] (BEAKER) (test code [address], = 1538) [place] [address] 0: Management Psychologist/Techni macrina ID = [id number] for Stew art, Brenda POCT-GLUCOSE [id number] 05:52:06 Test Item Value Reference Range Interpretation Comments POC-GLUCOSE METER 150 mg/dL 70-110 H : TESTED A T [facility] (BEAKER) (test code [address], = 1538) [place] [address] 0: Management Psychologist/Techni macrina ID = [id number] for Tori Malagon [id number] 05:04:18 Test Item Value Reference Range Interpretation Comments PARTIAL THROMBOPLASTIN 127.1 seconds 25.8-34.5 HH Carmen l Information TIME (BEAKER) (test (Auto Ou tput) code = 760) PROTHROMBIN TIME/[id number] 05:01:15 Test Item Value Reference Range Interpretation [...] is 2.5-3.5 for patients with mechanical heart valves.[id number] 04:57:33 Test Item Value Reference Range Interpretation Comments MAGNESIUM (BEAKER) (test code = 2.4 mg/dL 1.5-3.0 627) Management Psychologist ID - LORIHEPATIC FUNCTION [id number] 04:57:33 Test Item Value Reference Range Interpretation [...] (test code = 50 U/L 5-50 347) Management Psychologist ID - LORIBASIC METABOLIC [id number] 04:57:32 Test Item Value Reference Range Interpretation [...] high >=90 G2 Mildly decreased 60-89 G3a Mild ly to moderately 45-5 9 G3b Moderately to [...] not appl icable for dialysis patien ts Management Psychologist ID - LORICBC (HEMOGRAM ONLY)2022-04-03 04:49:54 Test [...] 0-0 (BEAKER) (test code = 413) POCT-GLUCOSE [id number] 20:39:41 Test Item Value Reference Range Interpretation Comments POC-GLUCOSE METER 155 mg/dL 70-110 H : TESTED A T [facility] (BEAKER) (test code [address], = 1538) [place] [address]: Management Psychologist/Techni macrina ID = [id number] for Balt ie, Vicente POCT-GLUCOSE [id number] 17:39:26 Test Item Value Reference Range Interpretation Comments POC-GLUCOSE METER 120 mg/dL 70-110 H : TESTED A [facility] (BEAKER) (test code [address], = 1538) [place] [address] 0: Management Psychologist/Techni macrina ID = [id number] for Delg ado, Kerry POCT-GLUCOSE [id number] 11:58:40 Test Item Value Reference Range Interpretation Comments POC-GLUCOSE METER 140 mg/dL 70-110 H : TESTED A T [facility] (BEAKER) (test code [address], = 1538) [place] [address] 0: Management Psychologist/Techni macrina ID = [id number] for Delg ado, Kerry RAD, CHEST, 1 VIEW, NON [id number] 09:19:00Reason for exam:->chest painShould this be performed at the bedside?->Yes [facility] 1980 Sex: MFINAL REPORT Chest AP portable erect Comparison exam: 04/01/2022 History provided: Chest pain Heart size magnified by projection. Lungs are clear and vascularity normal. Midline cathetertip at the axillary vein on the right. Signed: George Chan Verified Date/Time: 04/02/2022 09:19:59 Reading Location: [facility] Radiology Reading Room POCT-GLUCOSE [id number] 06:26:08 Test Item Value Reference Range Interpretation Comments POC-GLUCOSE METER 144 mg/dL 70-110 H : TESTED A T [facility] (BEAKER) (test code [address], = 1538) [place] [address]: Management Psychologist/Techni macrina ID = [id number] for Balt ie, [facility] HE[facility] FUN[facility] [id number] 05:57:40 Test Item Value Reference Range Interpretation [...] code = 65 U/L 5-50 H 347) Management Psychologist ID - [facility] METABOLIC [id number] 05:57:39 Test Item Value Reference Range Interpretation [...] not appl icable for dialysis patien ts Management Psychologist ID - [id number] 05:57:39 Test Item Value Reference Range Interpretation Comments MAGNESIUM (BEAKER) (test code = 2.3 mg/dL 1.5-3.0 627) Management Psychologist ID - [id number] 05:47:37 Test Item Value Reference Range Interpretation Comments PARTIAL THROMBOPLASTIN 80.8 seconds 25.8-34.5 H Final Information TIME (BEAKER) (test (Auto Ou tput) code = 760) PROTHROMBIN TIME/[id number] 05:46:32 Test Item Value Reference Range Interpretation [...] 0-0 (BEAKER) (test code = 413) POCT-GLUCOSE [id number] 19:16:29 Test Item Value Reference Range Interpretation Comments POC-GLUCOSE METER 164 mg/dL 70-110 H : TESTED A T [facility] (BEAKER) (test code [address], = 1538) [place] [address] 0: Management Psychologist/Techni macrina ID = [id number] for Ballexie ie, Hakeemopher POCT-GLUCOSE [id number] 18:10:19 Test Item Value Reference Range Interpretation Comments POC-GLUCOSE METER 140 mg/dL 70-110 H : TESTED A T [facility] (BEAKER) (test code [address], = 1538) [place] [address] 0: Management Psychologist/Techni macrina ID = [id number] for Delg ado, Kerry POCT-GLUCOSE [id number] 12:16:41 Test Item Value Reference Range Interpretation Comments POC-GLUCOSE METER 138 mg/dL 70-110 H : TESTED A T [facility] (BEAKER) (test code [address], = 1538) [place] [address] 0: Management Psychologist/Techni macrina ID = [id number] for Delg ado, Kerry RAD, CHEST, 1 VIEW, NON [id number] 07:47:00Reason for exam:- >PneumoniaShould this be performed at the bedside?->Yes [facility] 1980 Sex: MFINAL REPORT Chest AP portable erect History provided: Pneumonia COMPARISON STUDY: 03/30/2022 Heart size magnified by projection. Lungs are clear and vascularity normal. Midline catheteron the right with tip in the axillary vein. Signed: George Chan Verified Date/Time: 04/01/2022 07:47:04 Reading Location: [facility] Diagnostic Imaging Reading Room - [facility] 1.310.12 [id number] 06:44:00 Test Item Value Reference Range Interpretation Comments PARTIAL THROMBOPLASTIN 66.7 seconds 25.8-34.5 H Final Information TIME (BEAKER) (test (Auto Ou tput) code = 760) POCT-GLUCOSE [id number] 05:54:58 Test Item Value Reference Range Interpretation Comments POC-GLUCOSE METER 154 mg/dL 70-110 H : TESTED A T [facility] (BEAKER) (test code [address], = 1538) [facility] [address]: Management Psychologist/Techni macrina ID = [id number] for Glenroy Estrella CBC (HEMOGRAM ONLY)2022-04-01 05:39:05 [...] (BEAKER) (test code = 413) HEPATIC FUNCTION [id number] 05:36:17 Test Item Value Reference Range Interpretation [...] code = 77 U/L 5-50 H 347) Management Psychologist ID - [id number] METABOLIC [id number] 05:36:16 Test Item Value Reference Range Interpretation [...] not appl icable for dialysis patien ts Management Psychologist ID - [id number] 05:36:16 Test Item Value Reference Range Interpretation Comments MAGNESIUM (BEAKER) (test code = 2.4 mg/dL 1.5-3.0 627) Management Psychologist ID - [id number] TIME/[id number] 05:27:15 Test Item Value Reference Range Interpretation [...] 2.5-3.5 for patients with mechanical heart valves.POCT-GLUCOSE [id number] 20:19:45 Test Item Value Reference Range Interpretation Comments POC-GLUCOSE METER 179 mg/dL 70-110 H : TESTED A T [facility] (BEAKER) (test code [address], = 1538) [facility] [address]: Management Psychologist/Techni macrina ID = [id number] for Glenroy Estrella BASIC METABOLIC [id number] 17:35:49 Test Item Value Reference Range Interpretation [...] not appl icable for dialysis patien ts Management Psychologist ID - BRUCEPOCT-GLUCOSE [id number] 11:28:49 Test Item Value Reference Range Interpretation Comments POC-GLUCOSE METER 140 mg/dL 70-110 H : TESTED A T [facility] (BEAKER) (test code [address], = 1538) [facility] [address] 0: Management Psychologist/Techni macrina ID = [id number] for Stew art, Brenda [id number] 06:35:02 Test Item Value Reference Range Interpretation Comments PARTIAL THROMBOPLASTIN 64.5 seconds 25.8-34.5 H Final Information TIME (BEAKER) (test (Auto Ou tput) code = 760) PROTHROMBIN TIME/[id number] 05:40:15 Test Item Value Reference Range Interpretation [...] 2.5-3.5 for patients with mechanical heart valves.POCT-GLUCOSE [id number] 05:38:20 Test Item Value Reference Range Interpretation Comments POC-GLUCOSE METER 136 mg/dL 70-110 H : TESTED A T [facility] (BEAKER) (test code [address], = 1538) [facility] [address] 0: Management Psychologist/Techni macrina ID = [id number] for Glenroy Estrella [id number] 05:35:18 Test Item Value Reference Range Interpretation Comments MAGNESIUM (BEAKER) (test code = 2.5 mg/dL 1.5-3.0 627) Management Psychologist ID - PURACOMPREHENSIVE METABOLIC [id number] 05:35:17 Test Item Value Reference Range Interpretation [...] not appl icable for dialysis patien ts Management Psychologist ID - PURACBC (HEMOGRAM ONLY)2022-03-31 05:11:10 Test [...] 0-0 (BEAKER) (test code = 413) POCT-GLUCOSE [id number] 19:25:57 Test Item Value Reference Range Interpretation Comments POC-GLUCOSE METER 128 mg/dL 70-110 H : TESTED A T [facility] (BEAKER) (test code [address], = 1538) [place] [address] 0: Management Psychologist/Techni macrina ID = [id number] for Glenroy Estrella POCT-GLUCOSE [id number] 17:09:30 Test Item Value Reference Range Interpretation Comments POC-GLUCOSE METER 122 mg/dL 70-110 H : TESTED A T [facility] (BEAKER) (test code [address], = 1538) [place] [address] 0: Management Psychologist/Techni macrina ID = [id number] for Howard Jaquez MISCELLANEOUS LAB [id number] 15:50:48 Test Item Value Reference Range Interpretation Comments SCAN RESULT (test code = see scanned report [id number]) POCT-GLUCOSE [id number] 11:54:25 Test Item Value Reference Range Interpretation Comments POC-GLUCOSE METER 152 mg/dL 70-110 H : TESTED A T [facility] (BEAKER) (test code [address], = 1538) [place] [address] 0: Management Psychologist/Techni macrina ID = [id number] for Howard Jaquez [id number] 07:11:44 Test Item Value Reference Range Interpretation Comments PARTIAL THROMBOPLASTIN 66.2 seconds 25.8-34.5 H Final Information TIME ([facility]) (test (Auto Ou tput) code = 760) RAD, CHEST, 1 VIEW, NON [id number] 06:52:00Reason for exam:- >PneumoniaShould this be performed at the bedside?->Yes [facility] : 1980 Sex: MFINAL REPORT Exam: RAD, [...] MDReport Verified Date/Time: 03/30/2022 06:52:10 BASIC METABOLIC [id number] 06:49:16 Test Item Value Reference Range Interpretation [...] not appl icable for dialysis patien ts Management Psychologist ID - [id number] 06:49:16 Test Item Value Reference Range Interpretation Comments MAGNESIUM (BEAKER) (test code = 2.4 mg/dL 1.5-3.0 627) Management Psychologist ID - [id number] TIME/[id number] 06:43:10 Test Item Value Reference Range Interpretation [...] 0-0 (BEAKER) (test code = 413) POCT-GLUCOSE [id number] 06:18:33 Test Item Value Reference Range Interpretation Comments POC-GLUCOSE METER 152 mg/dL 70-110 H : TESTED A T [facility] (BEAKER) (test code [address], = 1538) [place] [id number] 0: Management Psychologist/Techni macrina ID = [id number] for LANC CAROLYNN, Glervi POCT-GLUCOSE [id number] 21:42:09 Test Item Value Reference Range Interpretation Comments POC-GLUCOSE METER 165 mg/dL 70-110 H : TESTED A T [facility] (BEAKER) (test code [address], = 1538) [place] [id number] 0: Management Psychologist/Techni macrina ID = [id number] for LANC CAROLYNN, Glervi POCT-GLUCOSE [id number] 17:53:23 Test Item Value Reference Range Interpretation Comments POC-GLUCOSE METER 127 mg/dL 70-110 H : TESTED A T [facility] (BEAKER) (test code [address]ANCE [address], = 1538) [place] [address] 0: Management Psychologist/Techni macrina ID = [id number] for Fatmata k (DivFlt)Larissa [id number] 16:26:31 Test Item Value Reference Range Interpretation Comments PARTIAL THROMBOPLASTIN 78.0 seconds 25.8-34.5 H Final Information TIME (BEAKER) (test (Auto Ou tput) code = 760) [id number] 16:11:20 Test Item Value Reference Range Interpretation Comments MAGNESIUM (BEAKER) (test code = 2.3 mg/dL 1.5-3.0 627) Management Psychologist ID - [id number] 16:11:20 Test Item Value Reference Range Interpretation Comments PHOSPHORUS (BEAKER) (test code = 5.0 mg/dL 2.5-4.5 H 604) Management Psychologist ID - BRUCEBASIC METABOLIC [id number] 16:11:19 Test Item Value Reference Range Interpretation [...] not appl icable for dialysis patien ts Management Psychologist ID - BRUCEPOCT-GLUCOSE [id number] 16:06:02 Test Item Value Reference Range Interpretation Comments POC-GLUCOSE METER 127 mg/dL 70-110 H : TESTED A T [facility] (BEAKER) (test code VANCE [address], = 1538) [facility] [address] 0: Management Psychologist/Techni macrina ID = [id number] for Mary Fitzgerald [id number] 06:31:09 Test Item Value Reference Range Interpretation Comments PHOSPHORUS (BEAKER) (test code = 5.2 mg/dL 2.5-4.5 H 604) Management Psychologist ID - PURACOMPREHENSIVE METABOLIC [id number] 06:31:08 Test Item Value Reference Range Interpretation [...] not appl icable for dialysis patien ts Management Psychologist ID - [id number] 06:31:08 Test Item Value Reference Range Interpretation Comments MAGNESIUM (BEAKER) (test code = 2.3 mg/dL 1.5-3.0 627) Management Psychologist ID - [id number] 06:30:45 Test Item Value Reference Range Interpretation Comments PARTIAL THROMBOPLASTIN 57.8 seconds 25.8-34.5 H Final Information TIME (BEAKER) (test (Auto Ou tput) code = 760) PROTHROMBIN TIME/[id number] 06:24:09 Test Item Value Reference Range Interpretation [...] mechanical heart valves.CBC W/PLT COUNT & AUTO [id number] 06:15:05 Test Item Value Reference Range Interpretation [...] PERCENT (BEAKER) (test code = 2801) POCT-GLUCOSE [id number] 00:22:33 Test Item Value Reference Range Interpretation Comments POC-GLUCOSE METER 139 mg/dL 70-110 H : TESTED A T [facility] (BEAKER) (test code [address], = 1538) [place] [address] 0: Management Psychologist/Techni macrina ID = [id number] for Alberto -Casino, Mirabelle POCT-GLUCOSE [id number] 00:22:33 Test Item Value Reference Range Interpretation Comments POC-GLUCOSE METER 142 mg/dL 70-110 H : TESTED A T [facility] (BEAKER) (test code VANCE [address], = 1538) [place] [address] 0: Management Psychologist/Techni macrina ID = [id number] for Alberto -Casino, Mirabelle [id number] 22:36:15 Test Item Value Reference Range Interpretation Comments PARTIAL THROMBOPLASTIN 40.7 seconds 25.8-34.5 H Final Information TIME (BEAKER) (test (Auto Ou tput) code = 760) POCT-GLUCOSE [id number] 21:40:56 Test Item Value Reference Range Interpretation Comments POC-GLUCOSE METER 160 mg/dL 70-110 H : TESTED A T [facility] (BEAKER) (test code AMBERWOO [address], = 1538) [facility] [address] 0: Management Psychologist/Techni macrina ID = [id number] for Bridget Cisneros [id number] 14:17:38 Test Item Value Reference Range Interpretation Comments PARTIAL THROMBOPLASTIN 43.6 seconds 25.8-34.5 H Final Information TIME (BEAKER) (test (Auto Ou tput) code = 760) RAD, CHEST, 1 VIEW, NON [id number] 07:53:00Reason for exam:- >PneumoniaShould this be performed at the bedside?->Yes [facility] GARZASH[facility]IF : 1980 Sex: MFINAL REPORT Chest AP portable Comparison exam: 03/27/2022 History provided: Pneumonia Heart size magnified by projection. Patchy coarsening of markings persists in the right lower lobe which could represent a small focus of pneumonia. Lungs otherwise clear and vascularity normal. Signed: George Chaneport Verified Date/Time: 03/28/2022 07:53:10 Reading Location: [facility] Diagnostic Imaging Reading Room - [facility] 1.310.12 CBC W/PLT COUNT & AUTO DIFFERENTIAL [...] PERCENT (BEAKER) (test code = 2801) TROPONIN [id number] 06:11:24 Test Item Value Reference Range Interpretation [...] failure, acidosis, acute neurological disease, and persistent tachyarrhythmia.Management Psychologist ID - BRUCELIPID [id number] 06:10:42 Test Item Value Reference Range Interpretation [...] Borderline 130-159 High 160-189 Very High >=190 Management Psychologist ID - SHEBAC-REACTIVE [id number] 06:09:17 Test Item Value Reference Range Interpretation Comments C-REACTIVE PROTEIN (BEAKER) (test 1.52 mg/dL 0.00-1.00 H code = 676) Management Psychologist ID - [id number] 06:08:31 Test Item Value Reference Range Interpretation Comments PHOSPHORUS (BEAKER) (test code = 4.9 mg/dL 2.5-4.5 H 604) Management Psychologist ID - SHEBACOMPREHENSIVE METABOLIC [id number] 06:08:30 Test Item Value Reference Range Interpretation [...] rted eGFR is based on the CKD-EPI 202 equation t hat does not use a race coefficientEsti mated GFR is not as accur ate as Creatinine Cathy sewell in predicting glom erular filtration rate . Estimated GFR is not appl icable for dialysis patien ts Management Psychologist ID - [id number] 06:08:30 Test Item Value Reference Range Interpretation Comments MAGNESIUM (BEAKER) (test code = 2.7 mg/dL 1.5-3.0 627) Management Psychologist ID - [id number] 05:59:39 Test Item Value Reference Range Interpretation Comments PARTIAL THROMBOPLASTIN 46.2 seconds 25.8-34.5 H Final Information TIME (BEAKER) (test (Auto Ou tput) code = 760) Urinalysis Microscopic [id number] 00:19:59 Test Item Value Reference Range Interpretation Comments RBC, UA (test code = 5-10 See_Comment [Autom ated message] 799-7) The system [employer] generated this result transmitted ref erence range: /HPF. Th e reference range was not used to interpr et this result as normal/abnormal . WBC, UA (test code = None Seen See_Comment [Autom ated message] 81403-3) The system [employer] generated this result transmitted ref erence range: /HPF. Th e reference range was not used to interpr et this result as normal/abnormal . Uric Acid Crystals Occasional (test code = 1583) [facility]scopic [id number] 00:19:59 Test Item Value Reference Range Interpretation Comments RBC, UA (test code = 5-10 See_Comment [Autom ated message] 799-7) The system [employer] generated this result transmitted ref erence range: /HPF. Th e reference range was not used to interpr et this result as normal/abnormal . WBC, UA (test code = None Seen See_Comment [Autom ated message] 41122-5) The system [employer] generated this result transmitted ref erence range: /HPF. Th e reference range was not used to interpr et this result as normal/abnormal . Uric Acid Crystals Occasional (test code = 1583) [facility] Center[facility]INALYSIS [id number] 00:19:59 Test Item Value Reference Range Interpretation Comments RBC UA-MANUAL (BEAKER) (test 5-10 /HPF code = 1659) WBC UA-MANUAL (BEAKER) (test None Seen /HPF code = 1661) URIC ACID CRYSTALS (BEAKER) Occasional (test code = 1583) Rapid drug screen, [id number] 23:45:33 Test Item Value Reference Range Interpretation Comments Barbiturate Screen Negative Negative (test code = 81583-2) Benzodiazepine Screen Negative Negative (test code = 72387-9) Cocaine (Metab.) Negative Negative Screen (test code = 3397-7) Opiate Screen (test Negative Negative code = 27161-8) Cannabinoid Screen Negative Negative (test code = 91205-1) Amph/Methamph Screen Negative Negative (test code = 65745-8) Phencyclidine Screen Negative Negative (test code = 12059-3) pH, UA (test code = 5.5 5.0-8.0 5803-2) LASHON (test code = LASHON) DRUG CUTOFF CONC.Cocaine 300 ng/mLCannabinoid 50 ng/mLBenzodiazepine 200 ng/mLBarbiturate 200 ng/mLPhencyclidine 25 ng/mLOpiate 300 ng/mLAmphetamine/ 1000 ng/mL Methamphetamine This assay provides an unconfirmed qualitative test result for the clinical management of patients in emergency situations. Chain of custody not maintained. Some ehwm-quy-rywsawb medications, as well as adulterants, may cause inaccurate results. Clinical correlation should be applied. A more comprehensive drug screen or confirmation of a detected drug may be performed upon request.Management Psychologist ID - Dorene T Lab Interpretation Normal (test code = 56034-9) [facility] Center[facility] screen, [id number] 23:45:33 Test Item Value Reference Range Interpretation Comments Barbiturate Screen Negative Negative (test code = 87817-8) Benzodiazepine Screen Negative Negative (test code = 16493-6) Cocaine (Metab.) Negative Negative Screen (test code = 3397-7) Opiate Screen (test Negative Negative code = 65816-8) Cannabinoid Screen Negative Negative (test code = 31809-5) Amph/Methamph Screen Negative Negative (test code = 59949-3) Phencyclidine Screen Negative Negative (test code = 13875-1) pH, UA (test code = 5.5 5.0-8.0 5803-2) LASHON (test code = LASHON) DRUG CUTOFF CONC.Cocaine 300 ng/mLCannabinoid 50 ng/mLBenzodiazepine 200 ng/mLBarbiturate 200 ng/mLPhencyclidine 25 ng/mLOpiate 300 ng/mLAmphetamine/ 1000 ng/mL Methamphetamine This assay provides an unconfirmed qualitative test result for the clinical management of patients in emergency situations. Chain of custody not maintained. Some dpnr-mfo-vuliwbv medications, as well as adulterants, may cause inaccurate results. Clinical correlation should be applied. A more comprehensive drug screen or confirmation of a detected drug may be performed upon request.Management Psychologist ID - Dorene T Lab Interpretation Normal (test code = 51483-5) [facility] CenterRAPID DRUG SCREEN, [id number] 23:45:33 Test Item Value Reference Range Interpretation [...] situations. Chain of custody not maintained. Some nhmb-ofg-owrkzpr medications, as well as adulterants, may cause inaccurate results. Clinical correlation should be applied. A more comprehensive drug screen or confirmation of a detected drug may be performed upon request.Management Psychologist ID - Dorene TUrinalysis with Microscopic If [id number] 23:27:20 Test Item Value Reference Range Interpretation Comments Color, UA (test code = 5778-6) Yellow Clarity, UA (test code = 5767-9) Clear Specific [place], UA (test code = 1.020 1.001-1.035 5811-5) pH, UA (test code = 5803-2) 5.5 5.0-8.0 Protein, UA (test code = 10920-2) Negative Negative Glucose, UA (test code = 365) Negative Negative Ketones, UA (test code = 2514-8) Negative Negative Bilirubin, UA (test code = 21733-2) Negative Negative Blood, UA (test code = 44441-3) Moderate Negative A Nitrite, UA (test code = 5802-4) Negative Negative Leukocytes, UA (test code = 5799-2) Negative Negative Urobilinogen, UA (test code = 0.2 96679-8) Specimen Source (test code = 2795) Lab Interpretation (test code = Abnormal 30690-2) [facility] CenterURINALYSIS WITH MICROSCOPIC IF [id number] 23:27:20 Test Item Value Reference Range Interpretation [...] 463) SOURCE(BEAKER) (test code = 2795) POCT-GLUCOSE [id number] 23:01:48 Test Item Value Reference Range Interpretation Comments POC-GLUCOSE METER 159 mg/dL 70-110 H : TESTED A T [facility] (BEAKER) (test code VANCE [address], = 1538) [facility] 7[address] 0: Management Psychologist/Techni macrina ID = [id number] for Jayde Maria PLATELET [id number] 22:48:58 Test Item Value Reference Range Interpretation Comments PLATELET COUNT (BEAKER) (test 232 K/CU MM 150-430 code = 756) TROPONIN [id number] 22:37:38 Test Item Value Reference Range Interpretation [...] failure, acidosis, acute neurological disease, and persistent tachyarrhythmia.Management Psychologist ID - [id number] 22:32:20 Test Item Value Reference Range Interpretation Comments PARTIAL THROMBOPLASTIN 23.2 seconds 25.8-34.5 L Final Information TIME ([facility]) (test (Auto Ou tput) code = 760) TSH/FREE T4 IF [id number] 19:31:20 Test Item Value Reference Range Interpretation Comments THYROID STIMULATING HORMONE 0.420 uIU/mL 0.350-5.500 ([facility]) (test code = 772) Management Psychologist ID - [id number] Echo W/Doppler(CW/PW/Color)2022-03-27 18:34:26Ejection FractionSLEH ECHO [facility] [place] Echo W/Doppler(CW/PW/Color)2022-03-27 18:34:26Ejection FractionSLEH ECHO HEARTLAB [facility]KS[facility] SterlingPOCT-GLUCOSE [id number] 17:13:34 Test Item Value Reference Range Interpretation Comments POC-GLUCOSE METER 172 mg/dL 70-110 H : TESTED A T [facility] ([facility]) (test code CHASEWOO Justin [address], = 1538) [facility] 7[address] 0: Management Psychologist/Techni macrina ID = [id number] for Laila Jim TROPONIN [id number] 17:05:07 Test Item Value Reference Range Interpretation Comments TROPONIN I ([facility]) (test code = 0.02 ng/mL 0.00-0.03 397) [...] failure, acidosis, acute neurological disease, and persistent tachyarrhythmia.Management Psychologist ID - NOLIC-REACTIVE PROTEIN 2022-03-27 17:01:29 Test Item Value Reference Range Interpretation Comments C-REACTIVE PROTEIN (VICKIE) (test 2.44 mg/dL 0.00-1.00 H code = 676) Management Psychologist ID - NOLIHEMOGLOBIN [id number] 15:46:10 Test Item Value Reference Range Interpretation Comments HEMOGLOBIN A1C (EMMAAKER) (test code = 6.0 % 4.3-6.1 368) Management Psychologist ID - BRUCERAD, CHEST, 1 VIEW, NON [id number] 13:55:00Reason for exam:->Line confirmationShould this be performed at the bedside?->Yes [facility] : 1980 Sex: MFINAL REPORT RAD, CHEST, 1 VIEW, NON DEPT TECHNIQUE: Frontal view(s) of the chest. INDICATION: Line confirmation COMPARISON: None FINDINGS/IMPRESSION: Lines/Tubes: None Lungs/pleura: Small focal opacity in the right lower lobe, please follow-up to resolution. No pleural effusion. No pneumothorax. Heart and Mediastinum: The cardiac silhouette is enlarged. Soft Tissues and Bones: Unrema rkable. Signed: Gagan Begum MDRtracy Verified Date/Time: 03/27/2022 13:55:48 Reading Location: [facility] Diagnostic Imaging Reading Room [place] [address] 1.310.12 B-TYPE NATRIURETIC FACTOR (BNP)2022-03-27 12:54:48 Test Item Value Reference Range Interpretation Comments B-TYPE NATRIURETIC PEPTIDE 1728 pg/mL 0-100 H (BEAKER) (test code = 700) Management Psychologist ID - GEMMA BLACTIC ACID, [id number] 12:43:42 Test Item Value Reference Range Interpretation Comments LACTATE BLOOD VENOUS (2) (EMMAAKER) 1.83 mmol/L 0.50-2.00 (test code = 2872) Management Psychologist ID - OLIVIER BTROPONIN [id number] 12:35:27 Test Item Value Reference Range Interpretation [...] failure, acidosis, acute neurological disease, and persistent tachyarrhythmia.Management Psychologist ID - OLIVIER BCOMPREHENSIVE METABOLIC [id number] 12:34:11 Test Item Value Reference Range Interpretation [...] not appl icable for dialysis patien ts Management Psychologist ID - OLIVIER [id number] 12:33:02 Test Item Value Reference Range Interpretation Comments MAGNESIUM (BEAKER) (test code = 2.4 mg/dL 1.5-3.0 627) Management Psychologist ID - OLIVIER [id number] 12:33:02 Test Item Value Reference Range Interpretation Comments PHOSPHORUS (BEAKER) (test code = 3.9 mg/dL 2.5-4.5 604) Management Psychologist ID - OLIVIER BBlood gas, [id number] 12:21:52 Test Item Value Reference Range Interpretation Comments pH, Arterial (test code 7.44 7.35-7.45 = 2744-1) pCO2, Arterial (test 32 See_Comment L [Autom ated code = 2018-) message] The system which generated this result [...] 8310-5) Lab Interpretation Abnormal (test code = 67365-4) [facility] CenterBlood [facility], [id number] 12:21:52 Test Item Value Reference Range Interpretation Comments pH, Arterial (test code 7.44 7.35-7.45 = 2744-1) pCO2, Arterial (test 32 See_Comment L [Autom ated code = 2019-8) message] The system which generated this result [...] 8310-5) Lab Interpretation Abnormal (test code = 20004-4) [facility] CenterBLOOD GAS, [id number] 12:21:52 Test Item Value Reference Range Interpretation [...] = 1818) CBC W/PLT COUNT & AUTO [id number] 12:19:24 Test Item Value Reference Range Interpretation [...]
[2022-04-30 10:33] LABS: Absolute Lymphocytes (CBC) 1.4 K/uL (0.7-4.9); Hematocrit 36.4 % (39.6-49.0); Lymphocytes % 12.6 % (15.3-44.8); MCV 86.9 fL (80-100); RBC Red Blood Cell Count 4.18 M/uL (4.33-5.43)
[2022-04-30 10:34] LABS: Protime INR 2.71
[2022-04-30 10:55] LABS: Bilirubin Direct 1.3 mg/dL (0-0.2); Bilirubin Total 3.1 mg/dL (0.2-1.0)
[2022-04-30 10:56] LABS: Albumin 3.3 g/dL (3.4-5.0); Magnesium 2.2; Troponin High Sensitivity 20.6 (<58.9)
[2022-04-30 11:20] LABS: Specific Gravity 1.017 (1.005-1.030); Urine Bacteria None Seen /HPF (<20); Urine Bilirubin NEGATIVE (Negative); Urine Blood Negative (Negative); Urine Clarity Clear (Clear); Urine Color Yellow (Yellow); Urine Glucose NEGATIVE (Negative); Urine Mucus Slight /HPF (None Seen); Urine Protein 1+ (Negative); Urine RBC <5 /HPF (None Seen); Urine Urobilinogen Normal (Normal); Urine pH 5.5 (5.0-7.0)
--- NOTE | 2022-04-30 11:27 | RAD REPORT ---
[facility] CLINICAL HISTORY: Cough;Dyspnea COMPARISON: Chest Single View dated 04/15/2022; Chest Single View dated 03/26/2022; Abdomen 1 View (KUB ) dated 03/14/2022; Chest Single View dated 02/12/2021 TECHNIQUE: Portable AP view of the chest. FINDINGS: Patchy right basilar airspace opacity progressive since the prior exam, may reflect pneumo zhane or aspiration. No pneumothorax or effusion. The mediastinal contours are stable. Stable cardiomeg flaquito. IMPRESSION: Right basilar airspace opacity, may reflect pneumonia or aspiration. Stable cardiomegaly .
[2022-04-30 11:40] LABS: SARS-COV-2 RT PCR NEGATIVE (NEGATIVE)
[2022-04-30] MEDS ORDERED: Levofloxacin500mg IV 500 MG/100 ML BAG IV ONE (11:53)
[2022-04-30] MEDS ORDERED: POTASSIUM 25 MEQ EFFERV TAB ONE (11:54)
--- NOTE | 2022-04-30 12:00 | RAD REPORT ---
EXAM DESCRIPTION: CT - Chest Abd Pelvis Wo Con - 04/30/2022 11:14 am CLINICAL HISTORY: Chest pain;Abdominal distention;Dyspnea COMPARISON: Chest Abd Pelvis Wo Con dated 03/26/2022 TECHNIQUE: Noncontrast axial thin cut CT images of the chest, abdomen, and pelvis. Multiplanar refor mats were generated and reviewed. All CT scans are performed using dose optimization technique as appropriate and may include automated exposure control or mA/KV adjustment according to patient size. FINDINGS: Patchy alveolar and ground-glass opacities, throughout the lower segments of the right low er lobe, more extensive than on the comparison CT. No pleural or pericardial effusion.No intrathoraci c adenopathy. The liver, spleen, pancreas, adrenal glands and kidneys are within normal limits. Gallbladder sludge without evidence of gallstones or pericholecystic fat stranding. No bowel obstruction, free air, or abnormal fluid collections. Trace fluid is noted in the pelvis, no nspecific. Normal appendix. Urinary bladder is suboptimally distended limiting evaluation. No patholo gic lymphadenopathy in the abdomen or pelvis. No worrisome osseous finding. IMPRESSION: Right lower lobe airspace opacities as above, more extensive than on the comparison CT, could reflect recurrent or worsened pneumonia. Imaging follow-up of these abnormalities following res olution of any acute symptoms is recommended, as the findings can obscure suspicious lung nodules or masses. Trace fluid noted in the pelvis, a nonspecific but abnormal finding. No other acute abnormalities are seen in the abdomen and pelvis.
--- NOTE | 2022-04-30 13:39 | EDPHYS ---
Physician Documentation [facility] Name: Justin Garza Age: 41 yrs Sex: Male : 1980 Arrival Date: 04/30/2022 Time: 09:26 Bed 24 Private MD: RODOLFO Physician Jordon Bermudez HPI: 04/30 10:02 This 41 yrs old Black Male presents to ER via Wheelchair with complaints of Vomiting, alvarez Flank Pain. 10:02 The patient presents to the emergency department with nausea, vomiting, that is alvarez intermittent. Onset: The symptoms/episode began/occurred 2 day(s) ago. Possible causes: unknown. The symptoms are aggravated by nothing. The symptoms are alleviated by nothing. Severity of symptoms: At their worst the symptoms were mild in the emergency department the symptoms are unchanged. The patient has not experienced similar symptoms in the past. Historical: - Allergies: 09:50 Amoxicillin; vg1 09:50 amoxicillin trihydrate; vg1 09:50 Bees; vg1 09:50 Demerol; vg1 09:50 Epinephrine; vg1 09:50 Iodine; vg1 09:50 Lisinopril; vg1 09:50 loratadine; vg1 09:50 Nuts; vg1 09:50 Pseudoephedrine; vg1 09:50 pseudoephedrine sulfate\E\; vg1 09:50 SEAFOOD; vg1 09:50 Strawberries; vg1 - PMHx: 09:50 Asthma; Borderline Diabetes; cardiomyopathy; cardiomyopathy; CHF; GERD; Irregular heart vg1 rate; kidney problems; Seizures; SJS; - Immunization history:: Client reports having NOT received the Covid vaccine. - Social history:: Smoking status: Patient denies any tobacco usage or history of. ROS: 10:04 Constitutional: Negative for fever, chills, and weight loss, Eyes: Negative for injury, alvarez pain, redness, and discharge, ENT: Negative for injury, pain, and discharge, Neck: Negative for injury, pain, and swelling, Cardiovascular: Negative for chest pain, palpitations, and edema, Back: Negative for injury and pain, : Negative for injury, bleeding, discharge, and swelling, MS/Extremity: Negative for injury and deformity, Skin: Negative for injury, rash, and discoloration, Neuro: Negative for headache, weakness, numbness, tingling, and seizure, Psych: Negative for depression, anxiety, suicide ideation, homicidal ideation, and hallucinations, Allergy/Immunology: Negative for hives, rash, and allergies, Endocrine: Negative for neck swelling, polydipsia, polyuria, polyphagia, and marked weight changes, Hematologic/Lymphatic: Negative for swollen nodes, abnormal bleeding, and unusual bruising. 10:04 Respiratory: Positive for cough, with no reported sputum, dyspnea on exertion, shortness of breath, at rest. 10:04 Abdomen/GI: Positive for abdominal pain, nausea and vomiting, vomiting, abdominal cramps, abdominal distension. Exam: 10:04 Constitutional: This is a well developed, well nourished patient who is awake, alert, alvarez and in no acute distress. Head/Face: Normocephalic, atraumatic. Eyes: Pupils equal round and reactive to light, extra-ocular motions intact. Lids and lashes normal. Conjunctiva and sclera are non-icteric and not injected. Cornea within normal limits. Periorbital areas with no swelling, redness, or edema. ENT: Nares patent. No nasal discharge, no septal abnormalities noted. Tympanic membranes are normal and external auditory canals are clear. Oropharynx with no redness, swelling, or masses, exudates, or evidence of obstruction, uvula midline. Mucous membranes moist. Neck: Trachea midline, no thyromegaly or masses palpated, and no cervical lymphadenopathy. Supple, full range of motion without nuchal rigidity, or vertebral point tenderness. No Meningismus. Chest/axilla: Normal chest wall appearance and motion. Nontender with no deformity. No lesions are appreciated. Cardiovascular: Regular rate and rhythm with a normal S1 and S2. No gallops, murmurs, or rubs. Normal PMI, no JVD. No pulse deficits. Back: No spinal tenderness. No costovertebral tenderness. Full range of motion. Male : Normal genitalia with no discharge or lesions. Skin: Warm, dry with normal turgor. Normal color with no rashes, no lesions, and no evidence of cellulitis. MS/ Extremity: Pulses equal, no cyanosis. Neurovascular intact. Full, normal range of motion. Neuro: Awake and alert, GCS 15, oriented to person, place, time, and situation. Cranial nerves II-XII grossly intact. Motor strength 5/5 in all extremities. Sensory grossly intact. Cerebellar exam normal. Normal gait. Psych: Awake, alert, with orientation to person, place and time. Behavior, mood, and affect are within normal limits. 10:04 Respiratory: mild respiratory distress is noted, Respirations: no acute changes, Breath sounds: bronchial sounds, that are mild, are scattered, decreased breath sounds, that are mild, Respiratory rate: 20 13:38 ECG was reviewed by the Attending Physician. [facility] Vital Signs: 09:47 BP 93 / 70; Pulse 110; Resp 20; Temp 99.1(O); Pulse Ox 96% on R/A; Weight 88.9 kg; vg1 Height 5 ft. 6 in. ; Pain 4/10; 12:09 BP 100 / 79; Pulse 101; Resp 16; Temp 98.4(O); Pulse Ox 95% on R/A; Pain 4/10; tw5 13:23 BP 97 / 65; Pulse 115; Resp 20; Pulse Ox 100% on R/A; tw5 13:44 BP 102 / 70; Pulse 110; Resp 20; Pulse Ox 98% on R/A; Pain 2/10; tw5 14:49 BP 96 / 83; Pulse 112; Resp 12; Pulse Ox 97% on R/A; tw5 09:47 Body Mass Index 31.63 (88.90 kg, 167.64 cm) vg1 09:47 Pain Scale: Adult vg1 12:09 Pain Scale: Adult tw5 13:44 Pain Scale: Adult tw5 MDM: 09:29 Patient medically screened. [facility] 10:06 Antibiotic administration: Not indicated. Differential diagnosis: Anemia CHF alvarez exacerbation, Nonspecific abd pain, gastritis, cholecystitis, pancreatitis, appendicitis, diverticulitis, viral gastroenteritis, gastroenteritis, pneumonia, Pneumothorax Psychogenic pulmonary edema, reactive airway disease, Sepsis Unstable Angina. Immunization status:. Data reviewed: vital signs, nurses notes, lab test result(s), EKG, radiologic studies, CT scan, plain films. Consideration of Admission/Observation Escalation of care including admission/observation considered. Management of patient was discussed with the following: Professional Security Officer: dr robles, get labs and let's see. I considered the following discharge prescriptions or medication management in the emergency department Medications were administered in the Emergency Department. See MAR. Independent interpretation of the following test(s) in the Emergency Department EKG: See my EKG interpretation above. Test considered but Not performed: MRI: no mri chest. 13:41 Care significantly affected by the following chronic conditions: Diabetes, alvarez Hypertension, Congestive Heart Failure, Obesity, Chronic Kidney Disease. Counseling: I had a detailed discussion with the patient and/or guardian regarding: the historical points, exam findings, and any diagnostic results supporting the discharge/admit diagnosis, lab results, radiology results, the need to transfer to another facility, for higher level of care, [facility] does not immediately have the required specialist, transfer per margaret. 04/30 09:41 Order name: Basic Metabolic Panel [facility] 04/30 09:41 Order name: CBC with Diff; Complete Time: 11:11 [facility] 04/30 09:41 Order name: LFT's 04/30 09:41 Order name: Magnesium [facility] 04/30 09:41 Order name: NT PRO-BNP [facility] 04/30 09:41 Order name: PT-INR; Complete Time: 11:11 [facility] 04/30 09:41 Order name: Troponin HS [facility] 04/30 09:41 Order name: Lipase 04/30 09:41 Order name: COVID-19/FLU A+B; Complete Time: 12:58 [facility] 04/30 09:41 Order name: UA; Complete Time: 11:29 [facility] 04/30 10:03 Order name: Blood Culture Adult (2) 04/30 10:03 Order name: Lactate w/ 2H reflex if indic. [facility] 04/30 09:41 Order name: XRAY Chest (1 view); Complete Time: 11:29 [facility] 04/30 09:41 Order name: CT Chest Abdomen Pelvis W/O Contrast; Complete Time: 12:58 [facility] 04/30 09:41 Order name: EKG; Complete Time: 09:42 [facility] 04/30 09:41 Order name: Cardiac monitoring; Complete Time: 12:12 [facility] 04/30 09:41 Order name: EKG - Nurse/Tech; Complete Time: 12:12 [facility] 04/30 09:41 Order name: IV Saline Lock; Complete Time: 10:15 [facility] 04/30 09:41 Order name: Labs collected and sent; Complete Time: 10:15 [facility] 04/30 09:41 Order name: O2 Per Protocol; Complete Time: 10:15 [facility] 04/30 09:41 Order name: O2 Sat Monitoring; Complete Time: 10:15 alvarez EC:38 Rate is 103 beats/min. QRS [place] is Normal. PA interval is normal. QRS interval is alvarez normal. QT interval is normal. No Q waves. T waves are Normal. No ST changes noted. Clinical impression: Sinus tachycardia and No evidence of ischemia. Interpreted by me. Reviewed by me. Administered Medications: 12:17 Drug: Potassium PO Effervescent Tablet 25 mEq Route: PO; tw5 13:39 Follow up: Response: No adverse reaction tw5 12:17 Drug: levofloxacin IVPB 500 mg Volume: 100 ml; Route: IVPB; Infused Over: 60 mins; tw5 Site: right antecubital; 13:39 Follow up: Response: No adverse reaction; IV Status: Completed infusion; IV Intake: tw5 100ml 13:46 Drug: Cefepime IVPB 1 grams Route: IVPB; Rate: 200 ml/hr; Infused Over: 30 mins; Site: tw5 right antecubital; 14:40 Follow up: Response: No adverse reaction; IV Status: Completed infusion; IV Intake: tw5 100ml 14:47 Drug: fentaNYL (PF) IVP 25 mcg Route: IVP; Site: right antecubital; tw5 14:47 Drug: Ondansetron IVP 4 mg Route: IVP; Site: right antecubital; tw5 14:49 Drug: Furosemide IVP 20 mg Route: IVP; Site: right antecubital; tw5 Disposition Summary: 04/30/22 13:38 Transfer Ordered Transfer Location: [facility] alvarez Reason: Higher level of care alvarez Condition: Fair alvarez Problem: new alvarez Symptoms: are unchanged alvarez Accepting Physician: to ccu(04/30/22 16:01) tw5 Diagnosis - Dyspnea alvarez - Pneumonia due to other specified bacteria - right lower lobe alvarez - Cardiomegaly alvarez - Cardiomyopathy, unspecified alvarez - Hypokalemia alvarez - Acute kidney failure, unspecified - on chronic alvarez Forms: - Medication Reconciliation Form alvarez - SBAR form alvarez Signatures: Dispatcher [employer] EDJordon Tinajero MD MD cha Garcia, Victoria, RN RN vg1 Vinita Lew tw5 Corrections: (The following items were deleted from the chart) 11:02 09:41 Urine Microscopic+U.LAB.BRZ ordered. EDVA EDMS 16:01 13:38 to ccu alvarez tw5
--- NOTE | 2022-04-30 13:39 | ER ---
Nurse's Notes [facility] Name: Justin Garza Age: 41 yrs Sex: Male : 1980 Arrival Date: 04/30/2022 Time: 09:26 Bed 24 Private MD: Diagnosis: Dyspnea;Pneumonia due to other specified bacteria-right lower lobe;Cardiomegaly;Cardiomyopathy, unspecified;Hypokalemia;Acute kidney failure, unspecified-on chronic Presentation: 04/30 09:47 Chief complaint: Spouse and/or significant other states: Right flank pain, RUQ and RLQ vg1 pain x 5 days with N/V and dark urine, also stated dark stool and difficulty breathing. Coronavirus screen: Vaccine status: Patient reports being unvaccinated. Client denies travel out of the [place] in the last 14 days. Ebola Screen: Patient negative for fever greater than or equal to 101.5 degrees Fahrenheit, and additional compatible Ebola Virus Disease symptoms Patient denies exposure to infectious person. Patient denies travel to an Ebola-affected area in the 21 days before illness onset. Initial Sepsis Screen: Does the patient meet any 2 criteria? HR > 90 bpm. Does the patient have a suspected source of infection? No. Patient's initial sepsis screen is negative. Risk Assessment: Do you want to hurt yourself or someone else? Patient reports no desire to harm self or others. Onset of symptoms was April 25, 2022. 09:47 Method Of Arrival: Wheelchair vg1 09:47 Acuity: ANNIE 3 vg1 Triage Assessment: 09:50 General: Appears in no apparent distress. uncomfortable, Behavior is calm, cooperative. vg1 Pain: Complains of pain in posterior aspect of right lateral abdomen, right upper quadrant and right lower quadrant Pain currently is 4 out of 10 on a pain scale. at worst was 10 out of 10 on a pain scale. Pain began 04/25/2022. Neuro: Level of Consciousness is awake, alert, obeys commands, Oriented to person, place, time, situation. Respiratory: Reports difficulty breathing, states 'hard to take a deep breath" Airway is patent Respiratory effort is even, unlabored. GI: Reports nausea, vomiting, "dark stool". : Reports urgency, "dark urine". Historical: - Allergies: 09:50 Amoxicillin; vg1 09:50 amoxicillin trihydrate; vg1 09:50 Bees; vg1 09:50 Demerol; vg1 09:50 Epinephrine; vg1 09:50 Iodine; vg1 09:50 Lisinopril; vg1 09:50 loratadine; vg1 09:50 Nuts; vg1 09:50 Pseudoephedrine; vg1 09:50 pseudoephedrine sulfate\\E\\; vg1 09:50 SEAFOOD; vg1 09:50 Strawberries; vg1 - PMHx: 09:50 Asthma; Borderline Diabetes; cardiomyopathy; cardiomyopathy; CHF; GERD; Irregular heart vg1 rate; kidney problems; Seizures; SJS; - Immunization history:: Client reports having NOT received the Covid vaccine. - Social history:: Smoking status: Patient denies any tobacco usage or history of. Screenin:01 [facility] ED Fall Risk Assessment (Adult) Impaired Gait. Abuse screen: Denies threats or tw5 abuse. Denies injuries from another. Nutritional screening: Has had N/V for 3 or more days. Tuberculosis screening: No symptoms or risk factors identified. Assessment: 12:09 General: reports " He has nausea and vomiting for the past several days. He has tw5 been refusing to eat or drink. We called his doctor and his sourcing intern wanted him admitted here. His sourcing intern said he wants an EKG, ECHO, and lab work done. I have already told Dr. Bermudez all this. Justin has CHF and poor kidney function. His urine was extremely dark colored.". Pain: Complains of pain in right low back Pain radiates to anterior aspect of right lateral abdomen and posterior aspect of right lateral abdomen Pain currently is 4 out of 10 on a pain scale. Pain began 2-3 days ago. Neuro: Level of Consciousness is awake, alert, obeys commands, Oriented to person, place, time, situation. Respiratory: Airway is patent Trachea midline Respiratory effort is even, unlabored. GI: Reports plank pain. GI: Abdomen is non-distended. : Reports dark colored urine. 13:23 General: Behavior is calm, cooperative, appropriate for age. General: weakness noted. tw5 Needs to hold to to walk to the restroom. Needed to take 3 min sitting at the bedside before swinging legs up to lay in the bed. . Musculoskeletal:. 13:44 Reassessment: No changes from previously documented assessment. Patient and/or family tw5 updated on plan of care and expected duration. Pain level reassessed. Patient is alert, oriented x 3, equal unlabored respirations, skin warm/dry/pink. 14:49 General: provider notified that patient was feeling nauseous. Medication administered.. tw5 15:03 General: Report called to [facility]. Spoke to Sheryl CHO. Information given tw5 to Patient for him to pass on to his Adilene, per her request. . Vital Signs: 09:47 BP 93 / 70; Pulse 110; Resp 20; Temp 99.1(O); Pulse Ox 96% on R/A; Weight 88.9 kg; vg1 Height 5 ft. 6 in. ; Pain 4/10; 12:09 BP 100 / 79; Pulse 101; Resp 16; Temp 98.4(O); Pulse Ox 95% on R/A; Pain 4/10; tw5 13:23 BP 97 / 65; Pulse 115; Resp 20; Pulse Ox 100% on R/A; tw5 13:44 BP 102 / 70; Pulse 110; Resp 20; Pulse Ox 98% on R/A; Pain 2/10; tw5 14:49 BP 96 / 83; Pulse 112; Resp 12; Pulse Ox 97% on R/A; tw5 09:47 Body Mass Index 31.63 (88.90 kg, 167.64 cm) vg1 09:47 Pain Scale: Adult vg1 12:09 Pain Scale: Adult tw5 13:44 Pain Scale: Adult tw5 ED Course: 09:26 Patient arrived in ED. rg4 09:29 Jordon Bermudez MD is Attending Physician. [facility] 09:50 Triage completed. vg1 09:50 Arm band placed on. vg1 10:06 Inserted saline lock: 20 gauge in right antecubital area, using aseptic technique. vg1 Blood collected. 10:06 Initial lab(s) drawn, by me, sent to lab. First set of blood cultures drawn by me. vg1 10:16 COVID-19/FLU A+B Sent. vg1 10:56 XRAY Chest (1 view) In Process Unspecified. EDMS 11:16 CT Chest Abdomen Pelvis W/O Contrast In Process Unspecified. EDMS 11:45 Vinita Lew is Primary Nurse. tw5 12:01 Patient has correct armband on for positive identification. Placed in gown. Bed in low tw5 position. Call light in reach. Side rails up X 1. Adult w/ patient. Client placed on continuous cardiac and pulse oximetry monitoring. NIBP monitoring applied. Door closed. Noise minimized. Moved to private room. Warm blanket given. Pillow given. Verbal reassurance given. 12:01 EKG done, by ED staff, reviewed by Jordon Bermudez MD. tw5 12:09 Inserted saline lock: 20 gauge in right hand, using aseptic technique. Blood collected. tw5 12:12 Second set of blood cultures drawn by ia. tw5 12:12 Blood Culture Adult (2) Sent. tw5 14:47 Blood Culture Adult (2) Sent. tw5 Administered Medications: 12:17 Drug: Potassium PO Effervescent Tablet 25 mEq Route: PO; tw5 13:39 Follow up: Response: No adverse reaction tw5 12:17 Drug: levofloxacin IVPB 500 mg Volume: 100 ml; Route: IVPB; Infused Over: 60 mins; tw5 Site: right antecubital; 13:39 Follow up: Response: No adverse reaction; IV Status: Completed infusion; IV Intake: tw5 100ml 13:46 Drug: Cefepime IVPB 1 grams Route: IVPB; Rate: 200 ml/hr; Infused Over: 30 mins; Site: tw5 right antecubital; 14:40 Follow up: Response: No adverse reaction; IV Status: Completed infusion; IV Intake: tw5 100ml 14:47 Drug: fentaNYL (PF) IVP 25 mcg Route: IVP; Site: right antecubital; tw5 14:47 Drug: Ondansetron IVP 4 mg Route: IVP; Site: right antecubital; tw5 14:49 Drug: Furosemide IVP 20 mg Route: IVP; Site: right antecubital; tw5 Medication: 12:09 VIS not applicable for this client. tw5 Intake: 13:39 IV: 100ml; Total: 100ml. tw5 14:40 IV: 100ml; Total: 200ml. tw5 Outcome: 13:38 ER care complete, transfer ordered by . alvarez 16:01 Patient left the ED. Signatures: Dispatcher [employer] Jordon Lux MD MD cha Garcia, Rubi 4 Lani Smyth RN RN vg1 Vinita Lew tw5 Corrections: (The following items were deleted from the chart) 15:05 15:03 General: Report called to [facility]. Spoke to Sheryl CHO. tw5 tw5
[2022-04-30] MEDS ORDERED: NA CHLORIDE 0.9% 100 ML ONE (13:45)
[2022-04-30] MEDS ORDERED: CEFEPIME 1 GM/VIAL ONE (13:45)
[2022-04-30] MEDS ORDERED: FUROSEMIDE 20 MG/ 2ML VIAL ONE (14:46)
[2022-04-30] MEDS ORDERED: ONDANSETRON 4 MG/2 ML VIAL ONE (14:47)
[2022-04-30] MEDS ORDERED: FENTANYL CITR 100 MCG/2 ML ONE (14:47)
[2022-04-30 15:34] LABS: Protein, Total 6.9 g/dL (6.4-8.2)
[2022-04-30 17:17] VITALS: TEMP 98.4
[2022-04-30 17:21] VITALS: BP 96/83; O2SAT 97
--- NOTE | 2022-05-01 17:25 | EKG ---
Test Date: 2022-04-30 Test Time: 11:56:25 Lung Splitter: TW MEASUREMENT RESULTS: Intervals: Rate: 103 SD: 176 QRSD: 98 QT: 414 QTc: 542 Klemme: P: 54 SD: 176 QRS: 32 T: -39 INTERPRETIVE STATEMENTS: Sinus tachycardia Cannot rule out Anterior infarct, age undetermined Abnormal ECG Compared to ECG 04/15/2022 16:34:26 Sinus rhythm no longer present Ventricular premature complex(es) no longer present Left-axis deviation no longer present Myocardial infarct finding still present Electronically Signed On 05-01-22 17:21:52 CDT by Heriberto Ivy
== END 2022-04-30 16:01 | disposition short-term general hospital (02) ==
LOC: ER 09:24
DX: J15.8 Pneumonia due to other specified bacteria (principal); E87.6 Hypokalemia; N17.9 Acute kidney failure, unspecified; I51.7 Cardiomegaly; I42.9 Cardiomyopathy, unspecified; Z20.822 Contact with and (suspected) exposure to COVID-19; Z88.1 Allergy status to other antibiotic agents; Z88.5 Allergy status to narcotic agent; Z88.8 Allergy status to other drugs, medicaments and biological substances; Z91.013 Allergy to seafood; Z91.018 Allergy to other foods; Z91.030 Bee allergy status; Z91.048 Other nonmedicinal substance allergy status
CPT/HCPCS: 87040 ×2; 85025; 81001; 80048; 36415; 83735; 85610; 80076; 83605; 84484; 83690; 83880; 0240U; 71250; 74176; 71045; J1940; J3010; J2405; J0692; 93005; 96365; 96367; 96375; 99284

== ENCOUNTER 2022-12-16 15:13 | Emergency (ER) | payer BC ==
--- OUTSIDE RECORDS SUMMARY | 2022-12-16 15:39 | XMS REPORT | Continuity of Care Document ---
:1980 Author Organization [facility] t Address [address] [place] [address] [place] [id number] Care Team Providers Name Role Phone [facility] ALBINA ZAMBRANO Attending Clinician Unavailable HEIDI CHOU Attending Clinician Unavailable HOLLY ALMONTE Attending Clinician Unavailable PRATEEK VANN Attending Clinician Unavailable MARIO JOSHI Attending Clinician Unavailable ABAD SANTOS Attending Clinician Unavailable TERRANCE LEDESMA Attending Clinician Unavailable ALAN QUEZADA Attending Clinician Unavailable KOKO TYSON Attending Clinician Unavailable Young Rausch MD Attending Clinician Tori Zhu MD Attending Clinician [phone] Koko Tyson MD Attending Clinician ROBBIN THOMAS Attending Clinician Unavailable Clive Oglesby MD Attending Clinician Geetha Penn DO Attending Clinician Robbin Thomas MD Attending Clinician [phone] Lia Perez MD Attending Clinician MARIO JOSHI Admitting Clinician Unavailable HOLLY ALMONTE Admitting Clinician Unavailable TORI ZHU Admitting Clinician Unavailable GEETHA PENN Admitting Clinician Unavailable Payers Payer Name Policy Type Policy Number Effective Date Expiration Date Bernadette rosario [facility] [id number] 2016 00:00:00 BLUE/ESSENTIALS Problems Condition Condition Condition [...] Added automatic ally from request for surgery 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 7-31 st y 00:00: Hospita 00 l Essential Essential [...] CHF CHF Disease Active Methodi (congestiv (congestiv 02 st e heart e heart 00:00: Hospita failure) failure) 00 l 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 00:00: Hospita secondary secondary 00 l to [...] ents Source Name Type Date Date Clinician LAMOTRIG Allergy Active High Rash [facility] (BULK) [facility] Medical 00 Center ZONISAMI Allergy Active High Rash [facility] DE [facility] (BULK) 00:00: Medical 00 Center SHELLFIS Allergy Active Other [facility] H [facility]11 [facility] CONTAINI 00:00: Medical NG 00 Center PRODUCTS Ephedrin Propensi Active Palpitations [facility] e ty to 2-17 [facility] adverse 00:00: Medical reaction 00 Center s EPHEDRIN Allergy Active Med Palpitations S LEH E 2-17 00:00: 00 Amoxicil Propensi Active Abdominal [facility] wander ty to 2-15 cramps [facility] adverse 00:00: Medical reaction 00 Center s Bee Propensi Active 2022-[address] [facility] Pollen ty to 2-15 [facility] adverse 00:00: Medical reaction 00 Center s Meperidi Propensi Active 3-[address] [facility] ne ty to 2-15 [facility] [...] adverse 00:00: Medical reaction 00 Center s HEPARIN Allergy Active 2022-[address] [facility] 2[facility]15 [facility] 00:00: Medical 00 Center NUT - Allergy Active 3-0 [facility] UNSPECIF 2-15 IED 00:00: 00 PSEUDOEP Allergy Active 3-0 [facility] HEDRINE 2-15 00:00: 00 SHELLFIS Allergy Active 2022-0 [facility] H 2-15 DERIVED 00:00: 00 STRAWBER Allergy Active High Rash 2022-0 [facility] RY 2-15 00:00: 00 IODINE Allergy Active High Anaphylaxis 3-0 [facility] 2-15 00:00: 00 AMOXICIL Allergy Active 3-0 [facility] WANDER 2-15 00:00: 00 BEE Allergy Active 3-0 [facility] POLLEN 2-15 00:00: 00 MEPERIDI Allergy Active 3-0 [facility] NE 2-15 00:00: 00 EPINEPHR Allergy Active 3-0 [facility] INE 2-15 00:00: 00 LORATADI Allergy Active 3-0 [facility] NE 2-15 00:00: 00 Fluticas Propensi Active Method i one ty to 4-02 st Propion- adverse 00:00: Hospita Salmeter reaction 00 l ol s to drug Amoxicil Propensi Active Method i wander ty to 4-02 st adverse 00:00: Hospita reaction 00 l s to drug Ciproflo Propensi Active Method i xacin ty to 4 st adverse 00:00: Hospita reaction 00 l s to drug Iodine Propensi Active Methodi ty to [address] [facility] adverse 00:00: Hospita reaction 00 l s to drug Lisinopr Propensi Active Method i il ty to 4 st adverse 00:00: Hospita reaction 00 l s to drug Losartan Propensi Active Method i ty to 4 st adverse 00:00: Hospita reaction 00 l s to drug CIPROFLO Allergy Active [facility]ACIN 4[facility]02 [facility] 00:[facility]: Medical 00 Center FLUTICAS Allergy Active [facility] ONE 4[facility]02 [facility] PROPION- 00:00: Medical SALMETER 00 Center OL LISINOPR Allergy Active [facility] [place] 4[facility]02 [facility] 00:00: Medical 00 Center LOSARTAN Allergy Active [facility] 00:[facility]: Medical 00 Center Epinephr Propensi Active Palpitations 2015-02 Reports Methodi ine ty to 0-[address] adverse 00:00: told to Hospita reaction 00 avoid l s to epinephri drug ne due to tachycard ia when treated with epinephri ne for asthma as a child. Family History Family Member Diagnosis Comments Start Date Stop Date Source Natural father Heart disease [facility] Natural father Stroke [facility] Natural father Aneurysm [facility] Natural father Heart disease [facility] Natural mother Heart disease [facility] Natural mother Hypertension [facility] Natural mother Irritable bowel [facility] syndrome Natural sister Lymphoma [facility] Social History Social Habit Start Date Stop Date Quantity Comments Source Sexual orientation 2018-09-05 Heterosexual Meth odist 14:13:19 (finding) Hospital History SDOH [facility] Alcohol Std Drinks Medica l Center History SDOH [facility] Alcohol Binge Medical [facility] [facility] History SDOH [facility] Transport Non-Med Medical Center Exposure to 2022-04-06 2022-04-[address] [facility] SARS-CoV-2 (event) 00:00:00 04:13:00 Medica l Center History [facility] 2022-04-16 2022-04-[address] [facility] Alcohol Frequency 00:00:00 00:00:00 Medical Center Tobacco use and 2022-03-27 2022-03-[address] [facility] exposure 00:00:00 00:00:00 non-user Medical Center History [facility] 2022-03-27 2022-03-[address] [facility] Transport Med 00:00:00 00:00:[address] [facility] 2022-03-27 2022-03-[address] [facility] Housing Unable to 00:00:00 00:00:00 Medical Center Pay History [facility] 2022-03-27 2022-03-[address] [facility] Housing Places 00:00:00 00:00:00 Medical Ce nter Lived History [facility] 2022-03-27 2022-03-[address] [facility] Housing Homeless 00:00:00 00:00:00 Medical Center Last Year Alcohol intake 2019-06-08 2019-06-08 Current drinker of Me thodist 00:00:00 00:00:00 alcohol (finding) Hospita l History of Social 2019-06-08 2019-06-[address] function 00:00:00 00:00:00 Hospital Alcohol Comment 2018-11-17 2018-11-17 socially Shinto 00:00:00 00:00:00 Hospital Sex Assigned At [birth year] [facility] [address] Natalia kes 00:00:00 00:00:00 Medical Center Smoking Status Start Date Stop Date Source Never smoked tobacco [facility] Medications Ordered Filled Start Stop Current Ordering Indication Dosage Frequency Signature Comments Components Source Medication Medication Date Date Medication? Clinician (SIG) Name Name metFORMIN Yes 500mg Take [address] [facility] (GLUMETZA) 3-09 mg by [facility] 500 MG 13:27: mouth Medical (MOD) 24 hr 18 daily with Ce nter tablet breakfast. ergocalcife Yes [id number] Q7D Take [facility] rol 3-09 50,000 [facility] (ERGOCALCIF 13:27: Units by Me dical HEIDE) 1,250 18 mouth once Ce nter mcg (50,000 a week. unit) capsule pantoprazol 2022-0 Yes 40mg QD Take [address] e 3-09 by mouth [facility] (PROTONIX) 13:27: daily. Medic al 40 MG 18 Center tablet aspirin 81 2022-0 2022- No 81mg QD Take [address] MG EC 04-18 by mouth [facility] tablet 11:46: 00:00 daily. Medical 45 :00 Center furosemide 2022-0 2022- No 80mg Q.5D Take [address] (LASIX) 80 04-18 05-08 tablet (80 Natalia kes MG tablet 00:00: 23:59 mg total) Me dical 00 :00 by mouth 2 Center (two) times daily for 60 days. warfarin 2022-0 2022- No 3mg QD Take [address] (COUMADIN, 04-18 04-08 tablet (3 Francia es JANTOVEN) 3 00:00: 23:59 mg total) Medical MG tablet 00 :00 by mouth Center daily for 30 days. metFORMIN 2022-0 Yes 500mg Take [address] [facility] (GLUMETZA) 2-24 mg by [facility] 500 MG 13:55: mouth Medical (MOD) 24 hr 07 daily with Ce nter tablet breakfast. ergocalcife 2022-0 Yes [id number] Q7D Take [facility] rol 2-24 50,000 [facility] (ERGOCALCIF 13:55: Units by Vt dical HEIDE) 1,250 07 mouth once Ce [...] tablet 13:55: daily. Medical 07 Center lisinopriL 2022-0 2022- No 5mg QD Take [address] (PRINIVIL,Z 2-24 02-24 by mouth Francia es ESTRIL) 5 08:56: 00:00 daily. Medic al MG tablet 47 :00 Center metoprolol 2023-0 2023- No 25mg QD Take [address] succinate 2-24 02-24 by mouth [facility] (TOPROL-XL) 08:56: 00:00 daily. Med ical 25 MG 24 hr 47 :00 Center tablet amLODIPine 2023-0 2023- No 5mg QD Take [address] (NORVASC) 5 2-24 02-24 by mouth Francia es MG tablet 08:56: 00:00 daily. Medic al 47 :00 Center potassium 2023-0 2023- No 20meq Q.5D Take [address] chloride 2-24 02-24 mEq by [facility]ukes (KLOR-CON) 08:56: 00:00 mouth 2 Med ical 20 mEq 47 :00 (two) Center packet times daily. furosemide 3-0 2023- No 20mg Q.5D Take [address] (LASIX) 20 2-24 02-24 by mouth 2 Natalia kes MG tablet 08:56: 00:00 (two) Medica l 47 :00 times Center daily. lisinopriL 2023-0 2023- No 5mg QD Take [address] (PRINIVIL,Z 2-24 02-24 by mouth Francia es ESTRIL) 5 08:56: 00:00 daily. Medic al MG tablet 47 :00 Center metoprolol 3-0 2023- No 25mg QD Take [address] succinate 2-24 02-24 by mouth [facility]ukes (TOPROL-XL) 08:56: 00:00 daily. Med ical 25 MG 24 hr 47 :00 Center tablet amLODIPine 2023-0 2023- No 5mg QD Take [address] (NORVASC) 5 2-24 02-24 by mouth Francia es MG tablet 08:56: 00:00 daily. Medic al 47 :00 Center potassium 2023-0 2023- No 20meq Q.5D Take [address] chloride 2-24 02-24 mEq by [facility]ukes (KLOR-CON) 08:56: 00:00 mouth 2 Med ical 20 mEq 47 :00 (two) Center packet times daily. furosemide 2023-0 2023- No 20mg Q.5D Take [address] (LASIX) 20 2-24 02-24 by mouth 2 Natalia kes MG tablet 08:56: 00:00 (two) Medica l 47 :00 times Center daily. nitroglycer 2023- No Put [address] in 04-05- under [facility]ukes (NITROSTAT) 00:00: 23:59 tongue Med ical 0.4 MG SL 00 :00 every 5min Cent er tablet as needed for chest pain.No more than 3 doses in 15min.Call 911 if pain unrelieved 5min after 1st dose. nitroglycer 2023- No Put [address] in 04-05- under [facility]ukes (NITROSTAT) 00:00: 23:59 tongue Med ical 0.4 MG SL 00 :00 every 5min Cent er tablet as needed for chest pain.No more than 3 doses in 15min.Call 911 if pain unrelieved 5min after 1st dose. furosemide 2022- No 40mg QD Take [address] (LASIX) 40 04-05 04-25 tablet (40 Natalia kes MG tablet 00:00: 23:59 mg total) Me dical 00 :00 by mouth Center daily for 60 days. sacubitriL- 2022-0 2022- No .5{tbl} Q.5D Take 0.[address] valsartan 2-24 04-25 tablets by Francia es (ENTRESTO) 00:00: 23:59 mouth 2 Med ical 24-26 mg 00 :00 (two) Center tablet times daily for 60 days. sacubitriL- 2022-0 2022- No .5{tbl} Q.5D Take 0.[address] valsartan 2-24 04-25 tablets by Francia es (ENTRESTO) 00:00: 23:59 mouth 2 Med ical 24-26 mg 00 :00 (two) Center tablet times daily for 60 days. potassium 2022-2022- No 20meq QD Take [address] chloride - 03-26 mEq by [facility] (KLOR-CON) 00:00: 23:59 mouth Medic al 20 mEq 00 :00 daily for Center packet 30 days. warfarin 2022-0 2022- No 6mg QD Take [address] (COUMADIN, 04-05 03-26 tablet (6 Francia es JANTOVEN) 6 00:00: 23:59 mg total) Medical MG tablet 00 :00 by mouth Center daily for 30 days. potassium 2022-0 2022- No 20meq QD Take [address] chloride 2-24 03-26 mEq by Lukes (KLOR-CON) 00:00: 23:59 mouth Medic al 20 mEq 00 :00 daily for Center packet 30 days. furosemide 2022-0 2022- No 40mg QD Take [address] (LASIX) 40 - 03-09 tablet (40 Natalia kes MG tablet 00:00: 00:00 mg total) Me dical 00 :00 by mouth Center daily for 60 days. warfarin 2022-0 2022- No 6mg QD Take [address] (COUMADIN, 04-05-09 tablet (6 Francia es JANTOVEN) 6 00:00: [...] 16:26: nightly. Hospita tablet 11 l albuterol 2020-0 [...] 16:26: daily. Hospit a 11 l levalbutero 2020-0 Yes 1{ampul Q4H Take 1 M ethodi l (XOPENEX) -28 e} ampule by st 1.25 mg/3 16:26: nebulizati Ho spita mL 11 on every 4 l nebulizer (four) solution hours as needed for wheezing. nitroglycer 2019-[address] Metho di in - under [...] nitroglycer 2020-[address] Metho di in 4-[address] (NITROSTAT) 11:26: tongue. Hos oscar 0.4 MG SL 11 l tablet aspirin 2020-0 Yes 81mg QD Take 81 mg Meth yosi (ECOTRIN) 4-[address] 81 MG 11:26: daily. Hospita enteric 11 l coated tablet montelukast 2020-0 Yes 10mg QD Take 10 mg Methodi (SINGULAIR) 4-[address] 10 mg 11:26: nightly. [...] nitroglycer 2020-[address] Metho di in 4-[address] (NITROSTAT) 11:26: tongue. Hos oscar 0.4 MG SL 11 l tablet aspirin 2020-0 Yes 81mg QD Take 81 mg Meth yosi (ECOTRIN) 4-[address] 81 MG 11:26: daily. Hospita enteric 11 l coated tablet montelukast 2020-0 Yes 10mg QD Take 10 mg Methodi (SINGULAIR) - by mouth st 10 mg 11:26: nightly. [...] 10mg QD Take 10 mg [facility]i (SINGULAIR) - by mouth st 10 mg 11:26: nightly. [...] 11:26: daily. Hospit a 11 l levalbutero 2019-0 Yes 1{ampul Q4H Take 1 M ethodi l (XOPENEX) 06-07 e} ampule by st 1.25 mg/3 11:26: nebulizati Ho spita mL 11 on every 4 l nebulizer (four) solution hours as needed for wheezing. nitroglycer 2019-[address] Metho di in - under the st (NITROSTAT) 11:26: tongue. Hos oscar 0.4 MG SL 11 l tablet aspirin 2020-0 Yes 81mg QD Take 81 mg Meth yosi (ECOTRIN) 06-[address] 81 MG 11:26: daily. Hospita enteric 11 l coated tablet metoprolol 2018-02 2020- No 50mg QD Take 1 Meth yosi succinate 0-11-10 tablet (50 st XL 00:00: 04:59 mg [...] Name Observation Time Observation Value Comments Source HEIGHT 2022-12-11 12:11:00 167.6 cm WEIGHT 2022-12-11 12:11:00 89.359 kg HEIGHT 2022-12-11 12:11:00 167.6 cm WEIGHT 2022-12-11 12:11:00 89.359 kg WEIGHT 2022-12-06 09:06:00 89.359 kg WEIGHT 2022-12-06 09:06:00 89.359 kg WEIGHT 2022-11-01 09:35:00 90.538 kg HEIGHT 2022-10-30 07:58:00 167.6 cm WEIGHT 2022-10-30 07:58:00 88.905 kg HEIGHT 2022-10-30 07:58:00 167.6 cm WEIGHT 2022-10-30 07:58:00 88.905 kg HEIGHT 2022-09-20 12:04:00 167.6 cm WEIGHT 2022-09-20 12:04:00 87.091 kg HEIGHT 2022-09-20 12:04:00 167.6 cm WEIGHT 2022-09-20 12:04:00 87.091 kg WEIGHT 2022-09-20 07:37:00 87.726 kg WEIGHT 2022-09-20 07:37:00 87.726 kg WEIGHT 2022-08-26 07:53:00 86.864 kg WEIGHT 2022-08-26 07:53:00 86.864 kg HEIGHT 2022-08-20 13:07:00 167.6 cm WEIGHT 2022-08-20 13:07:00 85.186 kg HEIGHT 2022-08-20 13:07:00 167.6 cm WEIGHT 2022-08-20 13:07:00 85.186 kg WEIGHT 2022-08-16 10:29:00 84.823 kg WEIGHT 2022-08-16 10:29:00 84.823 kg HEIGHT 2022-08-07 05:38:00 167.6 cm WEIGHT 2022-08-07 05:38:00 84.324 kg HEIGHT 2022-08-07 05:38:00 167.6 cm WEIGHT 2022-08-07 05:38:00 84.324 kg WEIGHT 2022-08-02 08:19:00 85.412 kg WEIGHT 2022-08-02 08:19:00 85.412 kg HEIGHT 2022-07-31 09:42:00 167.6 cm WEIGHT 2022-07-31 09:42:00 83.734 kg HEIGHT 2022-07-31 09:42:00 167.6 cm WEIGHT 2022-07-31 09:42:00 83.734 kg WEIGHT 2022-07-25 05:12:00 81.647 kg WEIGHT 2022-07-24 06:00:00 80.967 kg WEIGHT 2022-07-23 06:00:00 82.645 kg WEIGHT 2022-07-21 04:59:00 82.509 kg WEIGHT 2022-07-20 08:00:00 81.784 kg WEIGHT 2022-07-19 05:19:00 81.058 kg WEIGHT 2022-07-18 05:56:00 81.103 kg WEIGHT 2022-07-17 04:11:00 80.241 kg WEIGHT 2022-07-16 05:00:00 81.647 kg WEIGHT 2022-07-15 04:30:00 82.373 kg WEIGHT 2022-07-14 07:00:00 81.784 kg WEIGHT 2022-07-13 03:00:00 84.7 kg WEIGHT 2022-07-12 03:00:00 84.2 kg WEIGHT 2022-07-11 06:00:00 82.4 kg WEIGHT 2022-07-08 05:48:00 98 kg WEIGHT 2022-07-07 17:00:00 96.5 kg WEIGHT 2022-07-06 05:44:00 91 kg WEIGHT 2022-07-05 06:00:00 88.5 kg WEIGHT 2022-07-04 05:00:00 77.3 kg WEIGHT 2022-07-03 04:00:00 77.4 kg WEIGHT 2022-06-28 05:47:00 76.8 kg WEIGHT 2022-06-27 05:09:00 76.1 kg WEIGHT 2022-06-26 06:00:00 75.8 kg WEIGHT 2022-06-25 05:08:00 75.1 kg WEIGHT 2022-06-24 06:15:00 73.5 kg WEIGHT 2022-06-23 06:00:00 75.4 kg WEIGHT 2022-06-22 05:00:00 74.2 kg WEIGHT 2022-06-21 05:45:00 74 kg WEIGHT 2022-06-20 05:00:00 75.7 kg WEIGHT 2022-06-19 05:04:00 75.297 kg WEIGHT 2022-06-17 06:00:00 68.9 kg WEIGHT 2022-06-15 06:00:00 76.2 kg WEIGHT 2022-06-14 06:00:00 71.6 kg WEIGHT 2022-06-13 06:00:00 71.9 kg WEIGHT 2022-06-12 05:00:00 75 kg WEIGHT 2022-06-10 03:00:00 71.4 kg WEIGHT 2022-06-09 05:56:00 74.7 kg WEIGHT 2022-06-07 05:42:00 71.6 kg WEIGHT 2022-06-06 05:00:00 74 kg WEIGHT 2022-06-05 06:00:00 73.4 kg WEIGHT 2022-06-04 07:00:00 74.9 kg WEIGHT 2022-06-03 04:00:00 75.8 kg HEIGHT 2022-06-02 07:00:00 167.6 cm WEIGHT 2022-06-02 07:00:00 76 kg WEIGHT 2022-06-01 04:00:00 74.6 kg WEIGHT 2022-05-31 06:00:00 75.5 kg WEIGHT 2022-05-30 09:00:00 75.524 kg WEIGHT 2022-05-29 06:00:00 75.1 kg WEIGHT 2022-05-27 06:00:00 71.7 kg WEIGHT 2022-05-26 08:00:00 74.435 kg WEIGHT 2022-05-24 06:00:00 71.6 kg WEIGHT 2022-05-23 06:00:00 72 kg WEIGHT 2022-05-22 06:00:00 72 kg WEIGHT 2022-05-21 06:00:00 71.7 kg WEIGHT 2022-05-20 02:00:00 72 kg WEIGHT 2022-05-18 08:00:00 70.3 kg WEIGHT 2022-05-13 05:00:00 75.1 kg WEIGHT 2022-05-12 06:00:00 80 kg WEIGHT 2022-05-10 06:00:00 76.3 kg WEIGHT 2022-05-09 06:00:00 77.4 kg WEIGHT 2022-05-08 03:57:00 77.4 kg WEIGHT 2022-05-08 01:05:00 77.4 kg WEIGHT 2022-05-07 05:00:00 77.4 kg WEIGHT 2022-05-06 05:11:00 77.1 kg WEIGHT 2022-05-02 04:30:00 81.012 kg HEIGHT 2022-04-30 17:07:00 167.6 cm WEIGHT 2022-04-30 17:07:00 86.456 kg WEIGHT 2022-07-25 05:12:00 81.647 kg WEIGHT 2022-07-24 06:00:00 80.967 kg WEIGHT 2022-07-23 06:00:00 82.645 kg WEIGHT 2022-07-21 04:59:00 82.509 kg WEIGHT 2022-07-20 08:00:00 81.784 kg WEIGHT 2022-07-19 05:19:00 81.058 kg WEIGHT 2022-07-18 05:56:00 81.103 kg WEIGHT 2022-07-17 04:11:00 80.241 kg WEIGHT 2022-07-16 05:00:00 81.647 kg WEIGHT 2022-07-15 04:30:00 82.373 kg WEIGHT 2022-07-14 07:00:00 81.784 kg WEIGHT 2022-07-13 03:00:00 84.7 kg WEIGHT 2022-07-12 03:00:00 84.2 kg WEIGHT 2022-07-11 06:00:00 82.4 kg WEIGHT 2022-07-08 05:48:00 98 kg WEIGHT 2022-07-07 17:00:00 96.5 kg WEIGHT 2022-07-06 05:44:00 91 kg WEIGHT 2022-07-05 06:00:00 88.5 kg WEIGHT 2022-07-04 05:00:00 77.3 kg WEIGHT 2022-07-03 04:00:00 77.4 kg WEIGHT 2022-06-28 05:47:00 76.8 kg WEIGHT 2022-06-27 05:09:00 76.1 kg WEIGHT 2022-06-26 06:00:00 75.8 kg WEIGHT 2022-06-25 05:08:00 75.1 kg WEIGHT 2022-06-24 06:15:00 73.5 kg WEIGHT 2022-06-23 06:00:00 75.4 kg WEIGHT 2022-06-22 05:00:00 74.2 kg WEIGHT 2022-06-21 05:45:00 74 kg WEIGHT 2022-06-20 05:00:00 75.7 kg WEIGHT 2022-06-19 05:04:00 75.297 kg WEIGHT 2022-06-17 06:00:00 68.9 kg WEIGHT 2022-06-15 06:00:00 76.2 kg WEIGHT 2022-06-14 06:00:00 71.6 kg WEIGHT 2022-06-13 06:00:00 71.9 kg WEIGHT 2022-06-12 05:00:00 75 kg WEIGHT 2022-06-10 03:00:00 71.4 kg WEIGHT 2022-06-09 05:56:00 74.7 kg WEIGHT 2022-06-07 05:42:00 71.6 kg WEIGHT 2022-06-06 05:00:00 74 kg WEIGHT 2022-06-05 06:00:00 73.4 kg WEIGHT 2022-06-04 07:00:00 74.9 kg WEIGHT 2022-06-03 04:00:00 75.8 kg HEIGHT 2022-06-02 07:00:00 167.6 cm WEIGHT 2022-06-02 07:00:00 76 kg WEIGHT 2022-06-01 04:00:00 74.6 kg WEIGHT 2022-05-31 06:00:00 75.5 kg WEIGHT 2022-05-30 09:00:00 75.524 kg WEIGHT 2022-05-29 06:00:00 75.1 kg WEIGHT 2022-05-27 06:00:00 71.7 kg WEIGHT 2022-05-26 08:00:00 74.435 kg WEIGHT 2022-05-24 06:00:00 71.6 kg WEIGHT 2022-05-23 06:00:00 72 kg WEIGHT 2022-05-22 06:00:00 72 kg WEIGHT 2022-05-21 06:00:00 71.7 kg WEIGHT 2022-05-20 02:00:00 72 kg WEIGHT 2022-05-18 08:00:00 70.3 kg WEIGHT 2022-05-13 05:00:00 75.1 kg WEIGHT 2022-05-12 06:00:00 80 kg WEIGHT 2022-05-10 06:00:00 76.3 kg WEIGHT 2022-05-09 06:00:00 77.4 kg WEIGHT 2022-05-08 03:57:00 77.4 kg WEIGHT 2022-05-08 01:05:00 77.4 kg WEIGHT 2022-05-07 05:00:00 77.4 kg WEIGHT 2022-05-06 05:11:00 77.1 kg WEIGHT 2022-05-02 04:30:00 81.012 kg HEIGHT 2022-04-30 17:07:00 167.6 cm WEIGHT 2022-04-30 17:07:00 86.456 kg WEIGHT 2022-04-05 05:35:00 87.2 kg WEIGHT [...] kg Heart rate 2022-04-18 13:00:00 102 /min [facility] Systolic blood 2022-04-18 12:00:00 108 mm[Hg] [facility] Diastolic blood 2022-04-18 12:00:00 55 mm[Hg] [facility] Body temperature 2022-04-18 12:00:00 36.11 Trish [facility] Respiratory rate 2022-04-18 12:00:00 18 /min [facility] Oxygen saturation in 2022-04-18 12:00:00 100 /min [facility] Arterial blood by Medical Ce nter Pulse oximetry Systolic blood 2022-04-05 08:39:00 105 mm[Hg] [facility] Diastolic blood 2022-04-05 08:39:00 61 mm[Hg] [facility] Heart rate 2022-04-05 08:39:00 81 /min [facility] Body temperature 2022-04-05 08:39:00 36 Trish [facility] Respiratory rate 2022-04-05 08:39:00 20 /min [facility] Oxygen saturation in 2022-04-05 08:39:00 96 /min [facility] Arterial blood by Medical Ce nter Pulse oximetry Body weight 2022-04-05 05:35:00 87.2 kg [facility] BMI 2022-04-05 05:35:00 31.03 kg/m2 [facility] Body height 2022-03-27 12:50:00 167.6 cm [facility] Procedures Procedure Date / Time Performing Clinician Source Performed POCT-GLUCOSE METER 2022-04-18 11:31[facility] 2022-04-18 07:25[facility]/INR 2022-04-18 05:05:00 Young Rausch [facility] CBC W/PLT COUNT & AUTO 2022-04-18 03:46:00 Young Rausch [facility] COMPREHENSIVE METABOLIC 2022-04-18 03:46:00 AfYoung reeves [facility] MAGNESIUM 2022-04-18 03:46:00 Koko Tyson [facility] CBC W/PLT COUNT & AUTO 2022-04-18 03:46:00 Young Rausch [facility] POCT-GLUCOSE METER 2022-04-17 20:58:00 Tyson [facility] POCT-GLUCOSE METER 2022-04-17 17:04:00 Doni [facility] POCT-GLUCOSE METER 2022-04-17 12:04:00 Doni [facility] POCT-GLUCOSE METER 2022-04-17 07:56:00 Doni [facility] PROTHROMBIN TIME/INR 2022-04-17 04:29:00 Afaq, Young Coleman [facility] CBC W/PLT COUNT & AUTO 2022-04-17 04:29:00 Afaq, Young Recinos [facility] COMPREHENSIVE METABOLIC 2022-04-17 04:29:00 Afaq, Young fuentes [facility] HEPATITIS PANEL, ACUTE 2022-04-17 04:29:00 Afaq, Young Recinos [facility] CBC W/PLT COUNT & AUTO 2022-04-17 04:29:00 [facility]SE [facility] 2022-04-16 20:36:00 Audra [facility] UREA NITROGEN, RANDOM 2022-04-16 12:28:00 Afaq, Young Aquinoheer [facility] URINE [facility] URINALYSIS WITH 2022-04-16 12:28:00 Afaq, Young Recinos [facility] MICROSCOPIC IF INDICATED Medical Center CREATININE, RANDOM URINE 2022-04-16 12:27:00 Afaq, Young ernandez [facility] PROTEIN, RANDOM URINE 2022-04-16 12:27:00 Afaq, Young Aquinoheer [facility] POCT-GLUCOSE METER 2022-04-16 11:59:00 Audra [facility] POCT-GLUCOSE METER 2022-04-16 07:29:00 Audra [facility] ECG 12-LEAD 2022-04-16 06:54:41 Afaq, Young Recinos [facility] POCT-GLUCOSE METER 2022-04-16 03:53:00 Afaq, Pitoabdiaziz Recinos [facility] PROTHROMBIN TIME/INR 2022-04-16 03:48:00 Afaq, Young Recinos C [facility] CBC W/PLT COUNT & AUTO 2022-04-16 03:48:00 Afaq, Young Recinos [facility] TROPONIN I 2022-04-16 03:48:00 Afaq, Young Recinos [facility] COMPREHENSIVE METABOLIC 2022-04-16 03:48:00 Afaq, Young fuentes [facility] B-TYPE NATRIURETIC FACTOR 2022-04-16 03:48:00 Afaq, Young eisenberg [facility] (BNP) [facility] CBC W/PLT COUNT & AUTO 2022-04-16 03:48:00 Afaq, Young Recinos [facility] LACTIC ACID, VENOUS 2022-04-16 03:47:00 Afaq, Young Recinos [facility] EKG-SCANNED 2022-04-16 00:00:00 Thania Beckman [facility] POCT-GLUCOSE METER 2022-04-05 11:45:00 Robbin Thomas [facility] POCT-GLUCOSE METER 2022-04-05 04:46:00 [facility] 2022-04-05 04:04:00 Geetha Penn [facility] MAGNESIUM 2022-04-05 04:04:00 Geetha Penn [facility] PROTHROMBIN TIME/INR 2022-04-05 04:04:00 Fili [facility] HEPATIC FUNCTION PANEL 2022-04-05 04:04:00 Geetha [facility] APTT 2022-04-05 04:04:00 Lia Perez [facility] BASIC METABOLIC PANEL 2022-04-05 04:04:00 Robbin Thomas [facility] APTT 2022-04-04 19:29:00 [facility] POCT-GLUCOSE METER 2022-04-04 19:27[facility] 2022-04-04 16:32:00 Fili [facility] APTT 2022-04-04 12:19:00 [facility] POCT-GLUCOSE METER 2022-04-04 11:22[facility] 2022-04-04 05:06[facility]00 [facility] (HEMO[facility] ONLY) 2022-04-04 [facility]:34[facility]-04-04 03:34:00 [facility] PROTHROMBIN TIME/INR 2022-04-04 03:34:00 [facility] 2022-04-04 03:34:00 [facility] BASIC METABOLIC PANEL 2022-04-04 03:34:00 [facility] 2022-04-04 03:34:00 Lia Perez [facility] APTT 2022-04-03 20:25:00 [facility] POCT-GLUCOSE METER 2022-04-03 19:24:00 Fili [facility] POCT-GLUCOSE METER 2022-04-03 16:37:[facility] 2022-04-03 12:48:00 [facility] PO[facility]SE [facility]ER 2022-04-03 11:18:[facility] PO[facility]SE METER 2022-04-03 05:40:00 Fili [facility] CBC (HEMOGRAM ONLY) 2022-04-03 04:18:00 [facility] MAGNESIUM 2022-04-03 04:18:00 [facility] PROTHROMBIN TIME/INR 2022-04-03 04:18:00 [facility] 2022-04-03 04:18:00 Fili [facility] BASIC METABOLIC PANEL 2022-04-03 04:18:00 [facility] APTT 2022-04-03 04:18[facility] 2022-04-02 20:09:00 [facility] POCT-GLUCOSE METER 2022-04-02 17:28:00 [facility] ECG 12-LEAD 2022-04-02 10:54:56 Roya Mares [facility] ECG 12-LEAD 2022-04-02 10:54:56 Unknown, Hl7 [facility] POCT-GLUCOSE METER 2022-04-02 10:52:00 [facility] XR CHEST 1 VIEW PORTABLE / 2022-04-02 09:11:00 Jazmin Adams [facility] POCT-GLUCOSE METER 2022-04-02 05:48:00 [facility] CBC (HEMOGRAM ONLY) 2022-04-02 05:20:00 [facility] MAGNESIUM 2022-04-02 05:20:00 [facility] PROTHROMBIN TIME/INR 2022-04-02 05:20:00 [facility] HEPATIC FUNCTION PANEL 2022-04-02 05:20:00 Fili [facility] BASIC METABOLIC PANEL 2022-04-02 05:20:00 [facility] APTT 2022-04-02 05:20:00 Vega [facility] POCT-GLUCOSE METER 2022-04-01 19:01:00 Fili [facility] POCT-GLUCOSE METER 2022-04-01 16:27:00 Fili [facility] POCT-GLUCOSE METER 2022-04-01 11:36:00 Fili [facility] POCT-GLUCOSE METER 2022-04-01 04:58:00 Fili [facility] BASIC METABOLIC PANEL 2022-04-01 04:49:00 [facility] (HEMOGRAM ONLY) 2022-04-01 04:49:00 [facility] MAGNESIUM 2022-04-01 04:49:00 [facility] PROTHROMBIN TIME/INR 2022-04-01 04:49:00 [facility] HEPATIC FUNCTION PANEL 2022-04-01 04:49:00 Fili [facility] APTT 2022-04-01 04:49:00 [facility] XR CHEST 1 VIEW PORTABLE / 2022-04-01 00:39:00 Jazmin Adams [facility] POCT-GLUCOSE METER 2022-03-31 19:16:00 Fili [facility] BASIC METABOLIC PANEL 2022-03-31 16:49:00 Chris [facility] POCT-GLUCOSE METER 2022-03-31 11:16:00 Fili [facility] CBC (HEMOGRAM ONLY) 2022-03-31 05:01:00 [facility] MAGNESIUM 2022-03-31 05:01:00 [facility] PROTHROMBIN TIME/INR 2022-03-31 05:01:00 [facility] COMPREHENSIVE METABOLIC 2022-03-31 05:01:00 Fili [facility] APTT 2022-03-31 05:01:00 [facility] POCT-GLUCOSE METER 2022-03-31 05:00[facility]00 [facility] PO[facility]SE [facility]ER 2022-03-30 19:11:00 [facility] POCT-GLUCOSE METER 2022-03-30 16:30:00 [facility] POCT-GLUCOSE METER 2022-03-30 11:21:00 [facility] CBC (HEMOGRAM ONLY) 2022-03-30 06:14:00 [facility] BASIC METABOLIC PANEL 2022-03-30 06:14:00 [facility] MAGNESIUM 2022-03-30 06:14:00 [facility] PROTHROMBIN TIME/INR 2022-03-30 06:14:00 [facility] APTT 2022-03-30 06:14:00 Dm Ferrari [facility] POCT-GLUCOSE METER 2022-03-30 06:06:00 [facility] XR CHEST 1 VIEW PORTABLE / 2022-03-30 00:22:00 [facility] POCT-GLUCOSE METER 2022-03-29 20:52:00 Clive Oglesby [facility] POCT-GLUCOSE METER 2022-03-29 17:36:00 Clive Oglesby [facility] BASIC METABOLIC PANEL 2022-03-29 15:31:00 Syd Huggins [facility] MAGNESIUM 2022-03-29 15:31:00 Syd Huggins [facility] PHOSPHORUS 2022-03-29 15:31:00 Syd Huggins [facility] APTT 2022-03-29 15:31:00 [facility] POCT-GLUCOSE METER 2022-03-29 11:49:00 Clive Oglesby [facility] MISCELLANEOUS LAB ORDER 2022-03-29 10:55:00 Clive Oglesby [facility] ANGIOGRAM, CORONARY, WITH 2022-03-29 10:19:00 [facility] AND LEFT VENTRICULOGRAM, WITH PTCA IF INDICATED CBC W/PLT COUNT & AUTO 2022-03-29 05:53:00 [facility]OLIC 2022-03-29 05:53:00 Chris [facility] MAGNESIUM 2022-03-29 05:53:00 [facility] 2022-03-29 05:53:00 [facility] APTT 2022-03-29 05:53:00 [facility] PROTHROMBIN TIME/INR 2022-03-29 05:53:00 Syd Huggins [facility] CBC W/PLT COUNT & AUTO 2022-03-29 05:53:00 [facility] APTT 2022-03-28 22:14:00 [facility] POCT-GLUCOSE METER 2022-03-28 20:58:00 Clive Oglesby [facility] POCT-GLUCOSE METER 2022-03-28 16:38:00 Clive Oglesby [facility] APTT 2022-03-28 13:51:00 [facility] POCT-GLUCOSE METER 2022-03-28 11:44:00 Clive Oglesby [facility] APTT 2022-03-28 05:31:00 [facility] CBC W/PLT COUNT & AUTO 2022-03-28 05:31:00 [facility] COMPREHENSIVE METABOLIC 2022-03-28 05:31:00 Chris [facility] MAGNESIUM 2022-03-28 05:31:00 [facility] PH[facility] 2022-03-28 05:31:00 [facility] LIP[facility] 2022-03-28 05:31:00 Saul [facility] C-REACTIVE PROTEIN 2022-03-28 05:31:00 Bryan [facility] TROPONIN I 2022-03-28 05:31:00 Saul [facility] CBC W/PLT COUNT & AUTO 2022-03-28 05:31:[address] [facility] XR CHEST 1 VIEW PORTABLE / 2022-03-28 00:13:00 [facility] PLATELET COUNT 2022-03-27 22:34:00 Syd Huggins [facility] POCT-GLUCOSE METER 2022-03-27 22:28:00 Clive Oglesby [facility] URINALYSIS WITH 2022-03-27 22:08:00 [facility] MICROSCOPIC IF INDICATED [facility] RAPID DRUG SCREEN, URINE 2022-03-27 22:08:00 [facility] URINALYSIS MICROSCOPIC 2022-03-27 22:08:00 [facility] APTT 2022-03-27 22:06:00 [facility] TROPONIN I 2022-03-27 22:06:00 Saul [facility] POCT-GLUCOSE METER 2022-03-27 16:56:00 Clive Oglesby [facility] C-REACTIVE PROTEIN 2022-03-27 16:30:00 [facility] TSH/FREE T4 IF INDICATED 2022-03-27 16:30:00 Saul Kingston Luciano bella [facility] TROPONIN I 2022-03-27 16:30:00 [facility] ECG 12-LEAD 2022-03-27 13:15:05 [facility] 12-LEAD 2022-03-27 13:15:05 Unknown, Hl7 [facility] 2D ECHO W/ DOPPLER 2022-03-27 12:23:15 Syd Huggins [facility] (CW/PW/COLOR) [facility] LACTIC ACID, VENOUS 2022-03-27 12:20:00 Syd Huggins [facility] B-TYPE NATRIURETIC FACTOR 2022-03-27 12:19:00 Syd Huggins [facility] (BNP) [facility] BLOOD GAS, ARTERIAL 2022-03-27 12:13:00 [facility] COMPREHENSIVE METABOLIC 2022-03-27 12:07:00 Syd Huggins [facility] MAGNESIUM 2022-03-27 12:07:00 Syd Huggins [facility] PHOSPHORUS 2022-03-27 12:07:00 [facility] 2022-03-27 12:07:00 Syd Huggins [facility] CBC W/PLT COUNT & AUTO 2022-03-27 12:07:00 Syd Huggins [facility] HEMOGLOBIN A1C 2022-03-27 12:07:00 Saul [facility] CBC W/PLT COUNT & AUTO 2022-03-27 12:07:00 Syd Huggins [facility] XR CHEST 1 VIEW PORTABLE / 2022-03-27 11:41:00 Syd Huggins [facility] BEDSIDE [facility] VASCULAR DIAGRAM -SCAN 2022-03-27 00:00:00 Karuna [facility] PERMANENT LAB REPORT - 2022-03-27 00:00:00 Karuna [facility] CARDIAC CATH REPORT - SCAN 2022-03-27 00:00:00 Karuna [facility] EKG-SCANNED 2022-03-27 00:00:00 Karuna [facility] Plan of Care Planned Activity Planned Date Details Comments Source Future Scheduled 2025-03-[address] [facility]:00 (procedure) [code = [facility] [id number]] Future Scheduled 2025-03-[address] [facility] 00:00:00 (procedure) [code = [facility] [id number]] Future Scheduled 2023-04-[address] [facility] (12+) [code = Tobacco Cessation Counseling and Screening (12+)] Future Scheduled 2023-03-[address] [facility] Test 00:00:00 [facility] (12+) [code = Tobacco Cessation Counseling and Screening (12+)] Future Scheduled 2022-12-07 COVID-19 VACCINE (2 - [facility] Test 00:01:39 season) [code = COVID-19 VACCINE (2 - season)] Future Scheduled 2022-12-07 INFLUENZA VACCINE (#1) [facility] Test 00:01:39 [code = INFLUENZA VACCINE (#1)] Future Scheduled 2022-04-05 COVID-19 VACCINE (#1) [facility] Test 09:23:13 [code = COVID-19 VACCINE (#1)] Future Scheduled 2022-04-05 Pneumococcal Vaccine: [facility] Test 09:23:13 Pediatrics (0 to 5 Years) and At-Risk Patients (6 to 64 Years) (1 - PCV) [code = Pneumococcal Vaccine: Pediatrics (0 to 5 Years) and At-Risk Patients (6 to 64 Years) (1 - PCV)] Future Scheduled 2022-04-05 Hepatitis C screening [facility] Test 09:23:13 (procedure) [code = [id number]] Future Scheduled 2022-04-05 INFLUENZA VACCINE [facility] Hospital Test 09:23:13 [code = INFLUENZA VACCINE] Future Scheduled 2022-04-05 COVID-19 VACCINE (#1) [facility] Test 09:23:13 [code = COVID-19 VACCINE (#1)] Future Scheduled 2022-04-05 Pneumococcal Vaccine: [facility] Test 09:23:13 Pediatrics (0 to 5 Years) and At-Risk Patients (6 to 64 Years) (1 - PCV) [code = Pneumococcal Vaccine: Pediatrics (0 to 5 Years) and At-Risk Patients (6 to 64 Years) (1 - PCV)] Future Scheduled 2022-04-05 Hepatitis C screening [facility] Test 09:23:13 (procedure) [code = [id number]] Future Scheduled 2022-04-05 INFLUENZA VACCINE [facility] Test 09:23:13 [code = INFLUENZA VACCINE] Future Scheduled 2022-03-25 COVID-19 VACCINE (#1) [facility] Test 09:43:08 [code = COVID-19 VACCINE (#1)] Future Scheduled 2022-03-25 Pneumococcal Vaccine: [facility] Test 09:43:08 Pediatrics (0 to 5 Years) and At-Risk Patients (6 to 64 Years) (1 - PCV) [code = Pneumococcal Vaccine: Pediatrics (0 to 5 Years) and At-Risk Patients (6 to 64 Years) (1 - PCV)] Future Scheduled 2022-03-25 Hepatitis C screening [facility] Test 09:43:08 (procedure) [code = [id number]] Future Scheduled 2022-03-25 INFLUENZA VACCINE [facility] Test 09:43:08 [code = [...] (#1)] Future Scheduled COVID-19 VACCINE (1) Met [facility] Hospital Test [code = COVID-19 VACCINE (1)] Future Scheduled Hepatitis C screening [facility] Test (procedure) [code = [id number]] Future Scheduled INFLUENZA VACCINE [facility] Test [code = INFLUENZA VACCINE] Encounters Start End Encounter Admission Attending Care Care Encounter Source Date/Time Date/Time Type Type Clinicians Facility Department ID 2022-07-25 Inpatient ER NATASHAPAVITHRA, [facility] [id number] [facility] 00:38:38 ALBINA 2022-07-24 Inpatient ER HEIDI CHOU [facility] [id number] [facility]H 12:32:20 2022-07-24 Inpatient ER KAURARSHAD, [facility] [id number] [facility] 01:54:41 ALBINA 2022-07-23 Inpatient ER KAURARSHAD, [facility] [id number] SLEH 00:45:10 ALBINA 2022-07-22 Inpatient ER JUAN MANUEL, [facility] [id number] SLEH 01:58:39 ALBINA 2022-07-21 Inpatient [facility] [id number] SLEH 03:50:42 ALBINA 2022-07-20 Inpatient ER HEIDI CHOU [facility] [id number] [facility]H 08:06:44 2022-07-20 Inpatient ER JUAN MANUEL [facility] [id number] [facility]H 01:08:34 ALBINA 2022-07-19 Inpatient ER JUAN MANUEL [facility] [id number] [facility]H 02:08:58 ALBINA 2022-07-17 Inpatient ER HEIDI CHOU [facility] [id number] SLEH 08:52:14 2022-12-11 2022-12-11 Outpatient EL SEN, [facility] Cardiac [id number] [facility] 10:09:00 19:40:00 HOLLY Ribera 2022-12-11 2022-12-11 Outpatient EL [facility] [id number] SLEH 10:55:12 10:55:12 2022-12-06 2022-12-06 Outpatient EL SEN, [facility]H [facility] [id number] SLEH 08:11:00 08:11:00 HOLLY 2022-11-22 2022-11-22 Outpatient EL SEN, SLEH SLEH [id number] [facility]H 00:00:00 00:00:00 HOLLY 2022-11-20 2022-11-20 Outpatient EL [facility] SLEH [id number] SLEH 08:33:10 08:33:10 2022-11-01 2022-11-01 Outpatient EL SEN, SLEH SLEH [id number] SLEH 09:26:48 09:26:48 HOLLY 2022-10-30 2022-10-30 Outpatient EL SEN, SLE Surgery [id number] SLEH 07:47:00 16:51:00 HOLLY 2022-10-30 2022-10-30 Outpatient EL SLEH SLEH [id number] SLEH 08:37:16 08:37:16 2022-10-25 2022-10-25 Outpatient EL SEN, SLEH SLEH [id number] SLEH 00:00:00 00:00:00 HOLLY 2022-09-20 2022-09-20 Outpatient EL SEN, SLE Surgery [id number] SLEH 11:55:00 20:00:00 HOLLY 2022-09-20 2022-09-20 Outpatient EL SEN, SLEH SLEH [id number] SLEH 07:30:09 07:30:09 HOLLY 2022-09-20 2022-09-20 Outpatient EL SEN, SLEH SLEH [id number] SLEH 07:27:37 07:27:37 HOLLY 2022-09-13 2022-09-13 Outpatient EL SLEH SLEH [id number] SLEH 07:36:16 07:36:16 2022-09-13 2022-09-13 Outpatient EL [facility] SLEH [id number] SLEH 00:00:00 00:00:00 2022-09-11 2022-09-11 Outpatient EL [facility]H SLEH [id number] SLEH 00:00:00 00:00:00 2022-09-05 2022-09-05 Outpatient EL SLEH SLEH [id number] SLEH 07:31:22 07:31:22 2022-09-04 2022-09-04 Outpatient EL SLEH SLE [id number] SLEH 07:36:55 07:36:55 2022-08-26 2022-08-26 Outpatient EL SEN, SLEH SLEH [id number] SLEH 07:50:33 07:50:33 HOLLY 2022-08-20 2022-08-20 Outpatient EL SEN, [facility] Surgery [id number] SLEH 12:28:00 19:41:00 HOLLY 2022-08-16 2022-08-16 Outpatient EL SEN, SLEH SLEH [id number] SLEH 10:10:21 10:10:21 HOLLY 2022-08-07 2022-08-07 Outpatient EL SEN, [facility] Surgery [id number] SLEH 05:36:00 15:23:00 HOLLY 2022-08-02 2022-08-02 Outpatient EL SEN, SLEH SLEH [id number] SLEH 08:03:20 08:03:20 HOLLY 2022-07-31 2022-07-31 Outpatient EL SEN, [facility] Surgery [id number] SLEH 09:13:00 18:07:00 HOLLY 2022-07-25 2022-07-25 Inpatient ER EDWAR, SLEH SLE [id number] SLEH 08:54:20 23:59:00 PRATEEK 2022-04-30 2022-07-25 Inpatient ER HEIDI CHOU [facility] Transplant 2 [id number] SLEH 16:41:00 17:58:00 2022-07-25 2022-07-25 Inpatient ER EDWAR SLE[facility] SLE [id number] SLEH 09:31:14 00:00:00 PRATEEK 2022-07-24 2022-07-24 Outpatient EDWAR [facility] SLE [id number] SLEH 00:00:00 00:00:00 PRATEEK 2022-07-18 2022-07-18 Outpatient JUAN MANUEL [facility] SLE [id number] SLEH 00:39:09 23:59:00 ALBINA 2022-07-17 2022-07-17 Outpatient MICH ZAMBRANO SLE [id number] SLEH 00:19:23 23:59:00 ALBINA 2022-07-16 2022-07-16 Outpatient JUAN MANUEL [facility] SLE [id number] SLEH 03:53:21 23:59:00 ALBINA 2022-07-15 2022-07-15 Outpatient JUAN MANUEL [facility] SLE [id number] SLEH 02:27:04 23:59:00 ALBINA 2022-07-14 2022-07-14 Outpatient JUAN MANUEL [facility] SLE [id number] SLEH 02:44:23 23:59:00 ALBINA 2022-07-13 2022-07-13 Outpatient SANTOS, SLEH SLE [id number] SLEH 12:14:04 23:59:00 ABAD 2022-07-13 2022-07-13 Outpatient CALLIE, SLE SLE [id number] SLEH 06:00:08 12:13:00 TERRANCE 2022-07-11 2022-07-11 Outpatient DAMIEN SLE SLE [id number] SLEH 00:00:00 00:00:00 ALAN 2022-07-01 2022-07-01 Outpatient SHYANN QUEZADA SLE SLE [id number] SLEH 00:00:00 00:00:00 ALAN 2022-06-24 2022-06-24 Outpatient JIAN QUEZADA SLE [id number] SLEH 00:00:00 00:00:00 [facility] 2022-06-10 2022-06-10 Outpatient JIAN QUEZADA SLEH [id number] SLEH 00:00:00 00:00:00 [facility] 2022-05-31 2022-05-31 Outpatient JIAN QUEZADA SLE [id number] SLEH 00:00:00 00:00:00 [facility] 2022-05-20 2022-05-20 Outpatient DAMIEN SLE SLE [id number] SLEH 00:00:00 00:00:00 [facility] 2022-05-14 2022-05-14 Outpatient DAMIEN SLE SLE [id number] SLEH 00:00:00 00:00:00 [facility] 2022-05-13 2022-05-13 Outpatient MICH QUEZADA SLE [id number] SLEH 00:00:00 00:00:00 [facility] 2022-04-16 2022-04-18 [id number] [facility] 02:44:00 13:27:00 KOKO 2022-04-16 2022-04-18 Hospital ER Young Rausch [facility] [id number] [facility] [address] 02:44[facility]00 13:27:00 Encounter Tori Zhu Sophia [facility] 2022-04-16 2022-04-16 Travel [facility] [id number] [facility] 00[facility]00 [facility] 2022-03-27 2022-04-05 Inpatient ER [facility] Medical ICU [id number] [facility] 11:06:00 13:45:00 [facility] 2022-03-27 2022-04-05 Hospital ER Clive Oglesby [facility] [id number] 11:06:00 13:45:00 Encounter Geetha Pennikh Robbin [facility] 2022-03-29 2022-03-29 Surgery [facility], [facility] [id number] 09:40:00 10:35:[address] [facility] 2022-03-27 2022-03-27 Orders [facility] [id number] 00:00:00 00:00:[address] [facility] 2022-03-27 2022-03-27 Travel [facility] [id number] [facility] 00:[facility]:00 [facility] Results Test Description Test Time Test Comments Results Result Sourc e Comments TISSUE EXAM 2022-12-12 Surgical Pathology Report 17:14:49 Case: [id number] Authorizing Provider: Holly Almonte MD Collected: 12/11/2022 04:28 PM Ordering Location: [facility] Received: 12/11/2022 09:39 PM Pathologist: Loni Cruz MD Specimen: Heart, Bx A. 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 There is focal perivascular lymphocytic inflammation in the myocardium without definitive associated cardiomyocyte damage, most compatible with ISHLT grade 1R acute cellular rejection. Focal intramural extravasated red cells are noted and thought to be procedure-related. Focal tissue drying artifact is also noted. C4d is negative for capillary staining by immunofluorescence. The above diagnoses were relayed to Dr. Holly Almonte via [employer] text message on 12/12/22 at 5:13 PM. [id number] S/p OHT 07/04/22. A. HeartReceived are 2 containers labeled with the patient's name, medical record number and "heart REG".Received in formalin are 3 guadalupe-brown soft tissue fragments ranging from 0.1 - 0.2 cm in greatest dimension which are submitted in toto in cassette A1. Received in saline labled "heart C4D" is a 0.2 x 0.1 x 0.1 cm guadalupe soft tissue fragment which is frozen for immunofluorecent studies.Microscopic examination is performed and the salient findings are incorporated into the final diagnosis and comment sections. The interpretation of this case included the use of immunohistochemistry, immunofluorescence or special stains. Indirect immunofluorescence (block A1):Indirect immunofluorescence for C4d shows focal nonspecific staining in the interstitium, but no staining of myocardial capillaries. External positive control tissue shows positive C4d staining in a reticular pattern by follicular dendritic cells. Control Slides Examined: In-house known positive controls were evaluated along with the test tissue. These control slides run alongside of the patients sample show appropriate staining. Internal positive and negative controls when available are evaluated Immunohistochemistry and/or immunofluorescence technical testing was performed at [facility], Pathology Laboratory where it was developed and its performance characteristics were determined. It has not been cleared or approved by the U.S. Food and Drug Administration. The FDA has determined that such clearance or approval is not necessary. The test is used for clinical purposes. It should not be regarded as investigational or for research. This laboratory is certified under the Clinical Laboratory Improvement Amendments of 1988 (CLIA-88) as qualified to perform high complexity clinical laboratory testing. [facility], Department of Pathology, [address] [place] [address], [facility], [address] [place] [id number], [facility] [place] [facility], [address] [place] [address], TACROLIMUS LEVEL 2022-12-12 09:45:11 Test Item Value Reference Range Interpretation Comme nts TACROLIMUS BLOOD (BEAKER) 8.7 ng/mL 10.0-20.[address] performed on Nomiku (test code = 657) [employer] y system with Chemiluminescen t Microparticle Immunoassay (CM IA) technology. Hand Slitter ID - ADMINCBC W/PLT COUNT & AUTO [id number] 13:17:18 Test Item Value Reference Range Interpretation Comments WHITE BLOOD CELL COUNT (BEAKER) 4.0 K/ L 3.5-10.5 (test code = 775) RED BLOOD CELL COUNT (BEAKER) 4.79 M/ L 4.63-6.08 (test code = 761) HEMOGLOBIN (BEAKER) (test code = 13.2 GM/DL 13.7-17.5 L 410) HEMATOCRIT (BEAKER) (test code = 42.7 % 40.1-51.0 411) MEAN CORPUSCULAR VOLUME (BEAKER) 89 fL 79-92 (test code = 753) MEAN CORPUSCULAR HEMOGLOBIN 27.6 pg 25.7-32.2 (BEAKER) (test code = 751) MEAN CORPUSCULAR HEMOGLOBIN CONC 30.9 GM/DL 32.3-36.5 L (BEAKER) (test code = 752) RED CELL DISTRIBUTION WIDTH 13.2 % 11.6-14.4 (BEAKER) (test code = 412) PLATELET COUNT (BEAKER) (test 269 K/CU MM 150-450 code = 756) MEAN PLATELET VOLUME (BEAKER) 8.1 fL 9.4-12.4 L (test code = 754) NUCLEATED RED BLOOD CELLS 0 /100 WBC 0-0 (BEAKER) (test code = 413) (CELLAVISION MANUAL DIFF)2022-12-11 13:17:18 Test Item Value Reference Range Interpretation Comments NEUTROPHILS - REL 74 % (CELLAVISION)(BEAKER) (test code = 2816) LYMPHOCYTES - REL 5 % (CELLAVISION)(BEAKER) (test code = 2817) MONOCYTES - REL 1 % (CELLAVISION)(BEAKER) (test code = 2818) BASOPHILS - REL 1 % (CELLAVISION)(BEAKER) (test code = 2820) BANDS - REL (CELLAVISION)(BEAKER) 19 % 0-10 H (test code = 2826) NEUTROPHILS - ABS 2.96 K/ul 1.78-5.38 (CELLAVISION)(BEAKER) (test code = 2830) LYMPHOCYTES - ABS 0.20 K/ul 1.32-3.57 L (CELLAVISION)(BEAKER) (test code = 2831) MONOCYTES - ABS 0.04 K/uL 0.30-0.82 L (CELLAVISION)(BEAKER) (test code = 2832) BASOPHILS - ABS 0.04 K/uL 0.01-0.08 (CELLAVISION)(BEAKER) (test code = 2835) BANDS - ABS (CELLAVISION)(BEAKER) 0.76 K/uL 0.00-0.80 (test code = 2840) TOTAL COUNTED (BEAKER) (test code = 100 1351) RBC MORPHOLOGY (BEAKER) (test code Normal = 762) WBC MORPHOLOGY (BEAKER) (test code Normal = 487) GIANT PLATELETS (BEAKER) (test code Present = 313) ARTIFACT (CELLAVISION)(BEAKER) Present (test code = 3432) PLATELET CONCENTRATION Adequate (CELLAVISION)(BEAKER) (test code = 3438) Hand Slitter ID - Valentine OverholtUser comments: Slide comments:COMPREHENSIVE METABOLIC [id number] 13:02:59 Test Item Value Reference Range Interpretation Comments TOTAL PROTEIN 8.1 gm/dL 6.0-8.3 (BEAKER) (test code = 770) ALBUMIN (BEAKER) 4.8 g/dL 3.5-5.0 (test code = 1145) ALKALINE 60 U/L 40-150 PHOSPHATASE (BEAKER) (test code = 346) BILIRUBIN TOTAL 0.9 mg/dL 0.2-1.2 (BEAKER) (test code = 377) SODIUM (BEAKER) 141 meq/L 136-145 (test code = 381) POTASSIUM (BEAKER) 4.4 meq/L 3.5-5.1 (test code = 379) CHLORIDE (BEAKER) 104 meq/L 98-107 (test code = 382) CO2 (BEAKER) (test 27 meq/L 22-29 code = 355) BLOOD UREA 15 mg/dL 7-21 NITROGEN (BEAKER) (test code = 354) CREATININE 1.34 mg/dL 0.57-1.25 H (BEAKER) (test code = 358) GLUCOSE RANDOM 118 mg/dL 70-105 H (BEAKER) (test code = 652) CALCIUM (BEAKER) 9.9 mg/dL 8.4-10.2 (test code = 697) AST (SGOT) 14 U/L 5-34 (BEAKER) (test code = 353) ALT (SGPT) 13 U/L 6-55 (BEAKER) (test code = 347) EGFR (BEAKER) 68 Interpretatio n of eGFR (test code = [...] not appl icable for dialysis patien ts Hand Slitter ID - [id number] 13:02:59 Test Item Value Reference Range Interpretation Comments MAGNESIUM (BEAKER) (test code = 1.6 mg/dL 1.6-2.6 627) Hand Slitter ID - ADMINCMV PCR, [id number] 12:54:33 Test Item Value Reference Range Interpretation Comments CMV VIRAL LOAD - Negative or below See_Comment [Auto mated message] NEGATIVE (BEAKER) the linear range The sy stem which (test code = of the assay generated this 2558) (<300 IU/mL) result transmit lurdes reference range : <300 - >3,00 0,000 IU/mL. The refe rence range was not u sed to interpret th is result as normal/abnormal . TACROLIMUS [id number] 13:23:48 Test Item Value Reference Range Interpretation Comments TACROLIMUS BLOOD 9.7 ng/mL 10.0-20.0 L Test perfor med on Nelson (BEAKER) (test code Architec t Immunoassay = 657) system with Chemiluminescen t Microparticle I mmunoassay (CMIA) technolo gy. Hand Slitter ID - ADMINCOMPREHENSIVE METABOLIC [id number] 09:10:19 Test Item Value Reference Range Interpretation Comments TOTAL PROTEIN 7.4 gm/dL 6.0-8.3 (BEAKER) (test code = 770) ALBUMIN (BEAKER) 4.5 g/dL 3.5-5.0 (test code = 1145) ALKALINE 51 U/L 40-150 PHOSPHATASE (BEAKER) (test code = 346) BILIRUBIN TOTAL 0.6 mg/dL 0.2-1.2 (BEAKER) (test code = 377) SODIUM (BEAKER) 143 meq/L 136-145 (test code = 381) POTASSIUM (BEAKER) 4.1 meq/L 3.5-5.1 (test code = 379) CHLORIDE (BEAKER) 110 meq/L 98-107 H (test code = 382) CO2 (BEAKER) (test 25 meq/L 22-29 code = 355) BLOOD UREA 12 mg/dL 7-21 NITROGEN (BEAKER) (test code = 354) CREATININE 1.19 mg/dL 0.57-1.25 (BEAKER) (test code = 358) GLUCOSE RANDOM 109 mg/dL 70-105 H (BEAKER) (test code = 652) CALCIUM (BEAKER) 9.4 mg/dL 8.4-10.2 (test code = 697) AST (SGOT) 13 U/L 5-34 (BEAKER) (test code = 353) ALT (SGPT) 14 U/L 6-55 (BEAKER) (test code = 347) EGFR (BEAKER) 79 Interpretatio n of eGFR (test code = [...] not appl icable for dialysis patien ts Hand Slitter ID - [id number] 09:10:19 Test Item Value Reference Range Interpretation Comments MAGNESIUM (BEAKER) (test code = 1.6 mg/dL 1.6-2.6 627) Hand Slitter ID - ADMINCBC W/PLT COUNT & AUTO [id number] 08:51:53 Test Item Value Reference Range Interpretation Comments WHITE BLOOD CELL COUNT (BEAKER) 2.6 K/ L 3.5-10.5 L (test code = 775) RED BLOOD CELL COUNT (BEAKER) 4.54 M/ L 4.63-6.08 L (test code = 761) HEMOGLOBIN (BEAKER) (test code = 12.3 GM/DL 13.7-17.5 L 410) HEMATOCRIT (BEAKER) (test code = 40.1 % 40.1-51.0 411) MEAN CORPUSCULAR VOLUME (BEAKER) 88 fL 79-92 (test code = 753) MEAN CORPUSCULAR HEMOGLOBIN 27.1 pg 25.7-32.2 (BEAKER) (test code = 751) MEAN CORPUSCULAR HEMOGLOBIN CONC 30.7 GM/DL 32.3-36.5 L (BEAKER) (test code = 752) RED CELL DISTRIBUTION WIDTH 13.6 % 11.6-14.4 (BEAKER) (test code = 412) PLATELET COUNT (BEAKER) (test 279 K/CU MM 150-450 code = 756) MEAN PLATELET VOLUME (BEAKER) 8.2 fL 9.4-12.4 L (test code = 754) NUCLEATED RED BLOOD CELLS 0 /100 WBC 0-0 (BEAKER) (test code = 413) NEUTROPHILS RELATIVE PERCENT 51 % (BEAKER) (test code = 429) LYMPHOCYTES RELATIVE PERCENT 35 % (BEAKER) (test code = 430) MONOCYTES RELATIVE PERCENT 9 % (BEAKER) (test code = 431) EOSINOPHILS RELATIVE PERCENT 2 % (BEAKER) (test code = 432) BASOPHILS RELATIVE PERCENT 1 % (BEAKER) (test code = 437) NEUTROPHILS ABSOLUTE COUNT 1.32 K/ L 1.78-5.38 L (BEAKER) (test code = 670) LYMPHOCYTES ABSOLUTE COUNT 0.90 K/ L 1.32-3.57 L (BEAKER) (test code = 414) MONOCYTES ABSOLUTE COUNT (BEAKER) 0.23 K/ L 0.30-0.82 L (test code = 415) EOSINOPHILS ABSOLUTE COUNT 0.05 K/ L 0.04-0.54 (BEAKER) (test code = 416) BASOPHILS ABSOLUTE COUNT (BEAKER) 0.03 K/ L 0.01-0.08 (test code = 417) IMMATURE GRANULOCYTES-RELATIVE 2.30 % 0.00-1.00 H PERCENT (BEAKER) (test code = 2801) TACROLIMUS [id number] 11:01:20 Test Item Value Reference Range Interpretation Comments TACROLIMUS BLOOD 14.2 ng/mL 10.0-20.0 Test perfor med on Nelson (BEAKER) (test code Architec t Immunoassay = 657) system with Chemiluminescen t Microparticle Immunoassay (CM IA) technology. Hand Slitter ID - ADMINCOMPREHENSIVE METABOLIC [id number] 10:36:52 Test Item Value Reference Range Interpretation Comments TOTAL PROTEIN 8.3 gm/dL 6.0-8.3 (BEAKER) (test code = 770) ALBUMIN (BEAKER) 5.0 g/dL 3.5-5.0 (test code = 1145) ALKALINE 53 U/L 40-150 PHOSPHATASE (BEAKER) (test code = 346) BILIRUBIN TOTAL 1.3 mg/dL 0.2-1.2 H (BEAKER) (test code = 377) SODIUM (BEAKER) 141 meq/L 136-145 (test code = 381) POTASSIUM (BEAKER) 3.7 meq/L 3.5-5.1 (test code = 379) CHLORIDE (BEAKER) 106 meq/L 98-107 (test code = 382) CO2 (BEAKER) (test 26 meq/L 22-29 code = 355) BLOOD UREA 14 mg/dL 7-21 NITROGEN (BEAKER) (test code = 354) CREATININE 1.37 mg/dL 0.57-1.25 H (BEAKER) (test code = 358) GLUCOSE RANDOM 98 mg/dL 70-105 (BEAKER) (test code = 652) CALCIUM (BEAKER) 9.9 mg/dL 8.4-10.2 (test code = 697) AST (SGOT) 17 U/L 5-34 (BEAKER) (test code = 353) ALT (SGPT) 19 U/L 6-55 (BEAKER) (test code = 347) EGFR (BEAKER) 67 Interpretatio n of eGFR (test code = [...] not appl icable for dialysis patien ts Hand Slitter ID - BCOperator ID - [id number] 09:33:32 Test Item Value Reference Range Interpretation Comments MAGNESIUM (BEAKER) (test code = 1.8 mg/dL 1.6-2.6 627) Hand Slitter ID - BCCBC W/PLT COUNT & AUTO [id number] 09:05:39 Test Item Value Reference Range Interpretation Comments WHITE BLOOD CELL COUNT (BEAKER) 3.4 K/ L 3.5-10.5 L (test code = 775) RED BLOOD CELL COUNT (BEAKER) 4.83 M/ L 4.63-6.08 (test code = 761) HEMOGLOBIN (BEAKER) (test code = 13.2 GM/DL 13.7-17.5 L 410) HEMATOCRIT (BEAKER) (test code = 42.1 % 40.1-51.0 411) MEAN CORPUSCULAR VOLUME (BEAKER) 87 fL 79-92 (test code = 753) MEAN CORPUSCULAR HEMOGLOBIN 27.3 pg 25.7-32.2 (BEAKER) (test code = 751) MEAN CORPUSCULAR HEMOGLOBIN CONC 31.4 GM/DL 32.3-36.5 L (BEAKER) (test code = 752) RED CELL DISTRIBUTION WIDTH 13.4 % 11.6-14.4 (BEAKER) (test code = 412) PLATELET COUNT (BEAKER) (test 307 K/CU MM 150-450 code = 756) MEAN PLATELET VOLUME (BEAKER) 8.0 fL 9.4-12.4 L (test code = 754) NUCLEATED RED BLOOD CELLS 0 /100 WBC 0-0 (BEAKER) (test code = 413) NEUTROPHILS RELATIVE PERCENT 52 % (BEAKER) (test code = 429) LYMPHOCYTES RELATIVE PERCENT 37 % (BEAKER) (test code = 430) MONOCYTES RELATIVE PERCENT 6 % (BEAKER) (test code = 431) EOSINOPHILS RELATIVE PERCENT 1 % (BEAKER) (test code = 432) BASOPHILS RELATIVE PERCENT 1 % (BEAKER) (test code = 437) NEUTROPHILS ABSOLUTE COUNT 1.75 K/ L 1.78-5.38 L (BEAKER) (test code = 670) LYMPHOCYTES ABSOLUTE COUNT 1.25 K/ L 1.32-3.57 L (BEAKER) (test code = 414) MONOCYTES ABSOLUTE COUNT (BEAKER) 0.21 K/ L 0.30-0.82 L (test code = 415) EOSINOPHILS ABSOLUTE COUNT 0.04 K/ L 0.04-0.54 (BEAKER) (test code = 416) BASOPHILS ABSOLUTE COUNT (BEAKER) 0.04 K/ L 0.01-0.08 (test code = 417) IMMATURE GRANULOCYTES-RELATIVE 1.80 % 0.00-1.00 H PERCENT (BEAKER) (test code = 2801) TISSUE [id number] 17:59:39Surgical Pathology Report Case: [id number] Authorizing Provider: Holly Almonte MD Collected: 10/30/2022 01:43 PM Ordering Location: [facility] Received: 10/30/2022 03:33 PM Pathologist: Ashly Cloud MD Specimen: Heart, C4D x1, Bx x3 Transplanted heart, right ventricle, endomyocardial biopsy: ACR 0R, negative for acute cellular rejection pAMR 0, negative for antibody mediated rejectionCapillaries are negative for C4d by immunofluorescence See comment Signing Pathologist Direct Phone Line: [phone] signed by Ashly Cloud MD on 10/31/2022 at 5:59 PMSections from the formalin-fixed and fresh cardiac biopsy specimens show a total of 5 cardiac biopsy pieces composed predominantly of myocardium. There is no perivascular or interstitial lymphocytic infiltrate in the myocardium to suggest acute cellular rejection (ACR 0R). C4d is negative for capillary staining by immunofluorescence and no histopathologic features of antibody- mediated rejection are seen (pAMR 0).The above findings were communicated to the heart administrative receptionist coordinator (name Gilberto) via phoneSurePeaker Connect on 10/31/2022 at 1821. [phone], [id number] replaced by transplantA. HeartReceived are 2 containers labeled with the patient's name, medical record number and "heart REG".Received in formalinare multiple guadalupe-brown tissue fragments ranging in size from 0.1-0.2 cm, which are submitted in totoin A1. Received in saline "heart C4D" consists of a 0.2 cm guadalupe soft tissue fragment which is frozen for immunofluorecent studies.Kiesha MarquezThe interpretation of this case included the use of immunohistochemistry or special stains.Control Slides Examined: In- house known positive controls were evaluated along with the test tissue. These control slides run alongside of the patients sample show appropriate staining. Internal positive and negative controls when available are evaluated Immunohistochemistry technical testing was performed at [facility], Pathology Laboratory where it was developed and its performance characteristics were determined. It has not been cleared or approved by the U.S. Food and Drug Administration. The FDA has determined that such clearance or approval is not necessary. The test is used for clinical purposes. It should not be regarded as investigational or for research. This laboratory is certified under the Clinical Laboratory Improvement Amendments of 1988 (CLIA-88) as qualified to perform high complexity clinical laboratory testing.[facility], Department of Pathology, [address] [place] [address], [facility] [place], [address] [place] [address], [id number] [facility]– [place], [facility] of [facility]ology, [address] [place] [address], VAA PCR, [id number] 11:20:39 Test Item Value Reference Range Interpretation Comments CMV VIRAL LOAD - Negative or below See_Comment [Auto mated message] NEGATIVE (BEAKER) the linear range The sy stem which (test code = of the assay generated this 2558) (<300 IU/mL) result transmit lurdes reference range : <300 - >3,00 0,000 IU/mL. The refe rence range was not u sed to interpret th is result as normal/abnormal . TACROLIMUS [id number] 10:55:18 Test Item Value Reference Range Interpretation Comments TACROLIMUS BLOOD 11.7 ng/mL 10.0-20.0 Test perfor med on Nelson (BEAKER) (test code Architec t Immunoassay = 657) system with Chemiluminescen t Microparticle Immunoassay (CM IA) technology. Hand Slitter ID - ADMINTACROLIMUS [id number] 10:55:18 Test Item Value Reference Range Interpretation Comments TACROLIMUS BLOOD 12.2 ng/mL 10.0-20.0 Test perfor med on Nelson (BEAKER) (test code Architec t Immunoassay = 657) system with Chemiluminescen t Microparticle Immunoassay (CM IA) technology. Hand Slitter ID - ADMINCOMPREHENSIVE METABOLIC [id number] 09:36:19 Test Item Value Reference Range Interpretation Comments TOTAL PROTEIN 7.5 gm/dL 6.0-8.3 (BEAKER) (test code = 770) ALBUMIN (BEAKER) 4.5 g/dL 3.5-5.0 (test code = 1145) ALKALINE 46 U/L 40-150 PHOSPHATASE (BEAKER) (test code = 346) BILIRUBIN TOTAL 0.9 mg/dL 0.2-1.2 (BEAKER) (test code = 377) SODIUM (BEAKER) 141 meq/L 136-145 (test code = 381) POTASSIUM (BEAKER) 4.1 meq/L 3.5-5.1 (test code = 379) CHLORIDE (BEAKER) 107 meq/L 98-107 (test code = 382) CO2 (BEAKER) (test 26 meq/L 22-29 code = 355) BLOOD UREA 19 mg/dL 7-21 NITROGEN (BEAKER) (test code = 354) CREATININE 1.29 mg/dL 0.57-1.25 H (BEAKER) (test code = 358) GLUCOSE RANDOM 99 mg/dL 70-105 (BEAKER) (test code = 652) CALCIUM (BEAKER) 9.4 mg/dL 8.4-10.2 (test code = 697) AST (SGOT) 17 U/L 5-34 (BEAKER) (test code = 353) ALT (SGPT) 21 U/L 6-55 (BEAKER) (test code = 347) EGFR (BEAKER) 72 Interpretati on of eGFR (test code = 1092) mL/min/1.73 [...] not appl icable for dialysis patien ts Hand Slitter ID - EMBASIC METABOLIC [id number] 09:36:19 Test Item Value Reference Range Interpretation Comments SODIUM (BEAKER) 141 meq/L 136-145 (test code = 381) POTASSIUM 4.1 meq/L 3.5-5.1 (BEAKER) (test code = 379) CHLORIDE (BEAKER) 107 meq/L 98-107 (test code = 382) CO2 (BEAKER) 26 meq/L 22-29 (test code = 355) BLOOD UREA 19 mg/dL 7-21 NITROGEN (BEAKER) (test code = 354) CREATININE 1.29 mg/dL 0.57-1.25 H (BEAKER) (test code = 358) GLUCOSE RANDOM 99 mg/dL 70-105 (BEAKER) (test code = 652) CALCIUM (BEAKER) 9.4 mg/dL 8.4-10.2 (test code = 697) EGFR (BEAKER) 72 Interpretation of eGFR (test code = mL/min/1.73 values [...] not appl icable for dialysis patien ts [id number] 09:36:19 Test Item Value Reference Range Interpretation Comments MAGNESIUM (BEAKER) (test code = 1.6 mg/dL 1.6-2.6 627) Hand Slitter ID - [id number] 09:10:34 Test Item Value Reference Range Interpretation Comments PROTIME (BEAKER) (test code = 14.5 seconds 11.9-14.2 H 759) INR (BEAKER) (test code = 370) 1.20 <=5.90 RECOMMENDED COUMADIN/WARFARIN INR THERAPY RANGESSTANDARD DOSE: 2.0 - 3.0 Includes: PROPHYLAXIS for venous thrombosis, systemic embolization; TREATMENT for venous thrombosis and/or pulmonary embolus.HIGH RISK: Target INR is 2.5-3.5 for patients with mechanical heart valves.CBC W/PLT COUNT & AUTO [id number] 09:01:09 Test Item Value Reference Range Interpretation Comments WHITE BLOOD CELL COUNT (BEAKER) 3.5 K/ L 3.5-10.5 (test code = 775) RED BLOOD CELL COUNT (BEAKER) 4.56 M/ L 4.63-6.08 L (test code = 761) HEMOGLOBIN (BEAKER) (test code = 12.5 GM/DL 13.7-17.5 L 410) HEMATOCRIT (BEAKER) (test code = 38.9 % 40.1-51.0 L 411) MEAN CORPUSCULAR VOLUME (BEAKER) 85 fL 79-92 (test code = 753) MEAN CORPUSCULAR HEMOGLOBIN 27.4 pg 25.7-32.2 (BEAKER) (test code = 751) MEAN CORPUSCULAR HEMOGLOBIN CONC 32.1 GM/DL 32.3-36.5 L (BEAKER) (test code = 752) RED CELL DISTRIBUTION WIDTH 13.7 % 11.6-14.4 (BEAKER) (test code = 412) PLATELET COUNT (BEAKER) (test 261 K/CU MM 150-450 code = 756) MEAN PLATELET VOLUME (BEAKER) 8.0 fL 9.4-12.4 L (test code = 754) NUCLEATED RED BLOOD CELLS 0 /100 WBC 0-0 (BEAKER) (test code = 413) NEUTROPHILS RELATIVE PERCENT 56 % (BEAKER) (test code = 429) LYMPHOCYTES RELATIVE PERCENT 34 % (BEAKER) (test code = 430) MONOCYTES RELATIVE PERCENT 6 % (BEAKER) (test code = 431) EOSINOPHILS RELATIVE PERCENT 1 % (BEAKER) (test code = 432) BASOPHILS RELATIVE PERCENT 1 % (BEAKER) (test code = 437) NEUTROPHILS ABSOLUTE COUNT 1.95 K/ L 1.78-5.38 (BEAKER) (test code = 670) LYMPHOCYTES ABSOLUTE COUNT 1.20 K/ L 1.32-3.57 L (BEAKER) (test code = 414) MONOCYTES ABSOLUTE COUNT (BEAKER) 0.20 K/ L 0.30-0.82 L (test code = 415) EOSINOPHILS ABSOLUTE COUNT 0.05 K/ L 0.04-0.54 (BEAKER) (test code = 416) BASOPHILS ABSOLUTE COUNT (BEAKER) 0.04 K/ L 0.01-0.08 (test code = 417) IMMATURE GRANULOCYTES-RELATIVE 1.40 % 0.00-1.00 H PERCENT (BEAKER) (test code = 2801) CBC (HEMOGRAM ONLY)2022-10-30 09:01:09 Test Item Value Reference Range Interpretation Comments WHITE BLOOD CELL COUNT (BEAKER) 3.5 K/ L 3.5-10.5 (test code = 775) RED BLOOD CELL COUNT (BEAKER) 4.56 M/ L 4.63-6.08 L (test code = 761) HEMOGLOBIN (BEAKER) (test code = 12.5 GM/DL 13.7-17.5 L 410) HEMATOCRIT (BEAKER) (test code = 38.9 % 40.1-51.0 L 411) MEAN CORPUSCULAR VOLUME (BEAKER) 85 fL 79-92 (test code = 753) MEAN CORPUSCULAR HEMOGLOBIN 27.4 pg 25.7-32.2 (BEAKER) (test code = 751) MEAN CORPUSCULAR HEMOGLOBIN CONC 32.1 GM/DL 32.3-36.5 L (BEAKER) (test code = 752) RED CELL DISTRIBUTION WIDTH 13.7 % 11.6-14.4 (BEAKER) (test code = 412) PLATELET COUNT (BEAKER) (test 261 K/CU MM 150-450 code = 756) MEAN PLATELET VOLUME (BEAKER) 8.0 fL 9.4-12.4 L (test code = 754) NUCLEATED RED BLOOD CELLS 0 /100 WBC 0-0 (BEAKER) (test code = 413) TISSUE [id number] 16:07:57Surgical Pathology Report Case: [id number] Authorizing Provider: Holly Almonte MD Collected: 09/20/2022 04:15 PM Ordering Location: [facility] Received: 09/21/2022 06:02 AM Pathologist: Rosalind Acuna MD Specimen: Heart, RV X 3 IN FORMULIN [id number] IN NS Transplanted heart, right ventricle, endomyocardial biopsy: Mild acute cellular rejection (ACR grade 1R by ISHLT criteria) pAMR 0, negative for antibody mediated rejectionCapillaries are negative for C4d by immunofluorescence See comment Signing Pathologist Direct Phone Line: [phone] signed by Obey Acuna MD on 09/23/2022 at 4:07 PMPreliminary result electronically signed by Cristian Boogie MD on 09/21/2022 at 12:04 PMSections from the formalin- fixed and fresh cardiac biopsy specimens show a total of 4 cardiac biopsy pieces composed predominantly of myocardium. One of the biopsy pieces shows focal perivascular/interstitial lymphocytic inflammation without associated cardiomyocyte damage, most compatible with ISHLT grade 1R acute cellular rejection. C4d is negative for capillary staining by immunofluorescence and no histopathologic features of antibody-mediated rejection are seen (pAMR 0).The preliminary results were communicated verbally to the heart closing coordinator, Gilberto Kaur, on 09/21/22 12:[address] Cristian Boogie. Final results were given to the heart closing coordinator by text message on 3 at 3:57 pm. [id number], [id number] transplantHeart (right ventricle) biopsyA. HeartReceived are 2 containers labeled with the patient's name, medical record number and "heart REG".Received in formalin arethree guadalupe-brown tissue fragments which are submitted in toto in A1. Received in saline "heart C4D" consists of a 0.2 cm guadalupe soft tissue fragment which is frozen for immunofluorecent studies.PerformedThe interpretation of this case included the use of immunohistochemistry, immunofluorescence or specialstains.Indirect immunofluorescence (block A1):Indirect immunofluorescence for C4d shows focal nonspecific staining in the interstitium, but no staining of myocardial capillaries. External positive control tissue shows strongly positive C4d staining in capillaries.Control Slides Examined: In-house known positive controls were evaluated along with the test tissue. These control slides run alongside of the patients sample show appropriate staining. Internal positive and negative controls when availableare evaluatedImmunohistochemistry and/or immunofluorescence technical testing was performed at [facility], Pathology Laboratory where it was developed and its performance characteristics were determined. It has not been cleared or approved by the U.S. Food and Drug Administration. The FDA has determined that such clearance or approval is not necessary. The test is used for clinical purposes. It should not be regarded as investigational or for research. This laboratory is certified under the Clinical Laboratory Improvement Amendments of 1988 (CLIA-88) as qualified to perform high complexity clinical laboratory testing. [facility], Department of Pathology,[address] [place] [address], [place] [address], [facility], Departmentof Pathology, [address] [place] [address], [facility], Department of Pathology, [address] [place] [address], NEV PCR, [id number] 14:03:26 Test Item Value Reference Range Interpretation Comments CMV VIRAL LOAD - Negative or below See_Comment [Auto mated message] NEGATIVE (BEAKER) the linear range The sy stem which (test code = of the assay generated this 2558) (<300 IU/mL) result transmit lurdes reference range : <300 - >3,00 0,000 IU/mL. The refe rence range was not u sed to interpret th is result as normal/abnormal . TACROLIMUS [id number] 11:34:55 Test Item Value Reference Range Interpretation Comments TACROLIMUS BLOOD 11.4 ng/mL 10.0-20.0 Test perfor med on [employer] (simpleFLOORS) (test code Architec t Immunoassay = 657) system with Chemiluminescen t Microparticle Immunoassay (CM IA) technology. Hand Slitter ID - ADMINCBC W/PLT COUNT & AUTO [id number] 09:00:48 Test Item Value Reference Range Interpretation Comments WHITE BLOOD CELL COUNT (BEAKER) 3.3 K/ L 3.5-10.5 L (test code = 775) RED BLOOD CELL COUNT (BEAKER) 4.33 M/ L 4.63-6.08 L (test code = 761) HEMOGLOBIN (BEAKER) (test code = 11.9 GM/DL 13.7-17.5 L 410) HEMATOCRIT (BEAKER) (test code = 38.6 % 40.1-51.0 L 411) MEAN CORPUSCULAR VOLUME (BEAKER) 89 fL 79-92 (test code = 753) MEAN CORPUSCULAR HEMOGLOBIN 27.5 pg 25.7-32.2 (BEAKER) (test code = 751) MEAN CORPUSCULAR HEMOGLOBIN CONC 30.8 GM/DL 32.3-36.5 L (BEAKER) (test code = 752) RED CELL DISTRIBUTION WIDTH 14.3 % 11.6-14.4 (BEAKER) (test code = 412) PLATELET COUNT (BEAKER) (test 294 K/CU MM 150-450 code = 756) MEAN PLATELET VOLUME (BEAKER) 8.0 fL 9.4-12.4 L (test code = 754) NUCLEATED RED BLOOD CELLS 0 /100 WBC 0-0 (BEAKER) (test code = 413) (CELLAVISION MANUAL DIFF)2022-09-20 09:00:48 Test Item Value Reference Range Interpretation Comments NEUTROPHILS - REL 61 % (CELLAVISION)(BEAKER) (test code = 2816) LYMPHOCYTES - REL 29 % (CELLAVISION)(BEAKER) (test code = 2817) MONOCYTES - REL 3 % (CELLAVISION)(BEAKER) (test code = 2818) EOSINOPHILS - REL 1 % (CELLAVISION)(BEAKER) (test code = 2819) METAMYELOCYTES - REL 2 % 0-0 H (CELLAVISION)(BEAKER) (test code = 2821) MYELOCYTES - REL 1 % 0-0 H (CELLAVISION)(BEAKER) (test code = 2822) BANDS - REL (CELLAVISION)(BEAKER) 3 % 0-10 (test code = 2826) NEUTROPHILS - ABS 2.01 K/ul 1.78-5.38 (CELLAVISION)(BEAKER) (test code = 2830) LYMPHOCYTES - ABS 0.96 K/ul 1.32-3.57 L (CELLAVISION)(BEAKER) (test code = 2831) MONOCYTES - ABS 0.10 K/uL 0.30-0.82 L (CELLAVISION)(BEAKER) (test code = 2832) EOSINOPHILS - ABS 0.03 K/uL 0.04-0.54 L (CELLAVISION)(BEAKER) (test code = 2834) METAMYELOCYTES - ABS 0.07 K/uL 0.00-0.00 H (CELLAVISION)(BEAKER) (test code = 2836) MYELOCYTES-ABS 0.03 K/uL 0.00-0.00 H (CELLAVISION)(BEAKER) (test code = 2837) BANDS - ABS (CELLAVISION)(BEAKER) 0.10 K/uL 0.00-0.80 (test code = 2840) TOTAL COUNTED (BEAKER) (test code 100 = 1351) MANUAL NRBC PER 100 CELLS (BEAKER) 1 /100 WBC 0-0 H (test code = 1353) WBC MORPHOLOGY (BEAKER) (test code Normal = 487) GIANT PLATELETS (BEAKER) (test Present code = 313) ANISOCYTOSIS (BEAKER) (test code = 1+ few 961) MICROCYTES (BEAKER) (test code = 1+ few 965) ARTIFACT (CELLAVISION)(BEAKER) Present (test code = 3432) PLATELET CONCENTRATION Adequate (CELLAVISION)(BEAKER) (test code = 3438) Hand Slitter ID - gloria Curran comments: Slide comments:[id number] 08:04:33 Test Item Value Reference Range Interpretation Comments MAGNESIUM (BEAKER) (test code = 1.7 mg/dL 1.6-2.6 627) Hand Slitter ID - MARCOCOMPREHENSIVE METABOLIC [id number] 08:04:32 Test Item Value Reference Range Interpretation Comments TOTAL PROTEIN 7.5 gm/dL 6.0-8.3 (BEAKER) (test code = 770) ALBUMIN (BEAKER) 4.5 g/dL 3.5-5.0 (test code = 1145) ALKALINE 51 U/L 40-150 PHOSPHATASE (BEAKER) (test code = 346) BILIRUBIN TOTAL 0.5 mg/dL 0.2-1.2 (BEAKER) (test code = 377) SODIUM (BEAKER) 141 meq/L 136-145 (test code = 381) POTASSIUM (BEAKER) 4.4 meq/L 3.5-5.1 (test code = 379) CHLORIDE (BEAKER) 108 meq/L 98-107 H (test code = 382) CO2 (BEAKER) (test 27 meq/L 22-29 code = 355) BLOOD UREA 19 mg/dL 7-21 NITROGEN (BEAKER) (test code = 354) CREATININE 1.19 mg/dL 0.57-1.25 (BEAKER) (test code = 358) GLUCOSE RANDOM 103 mg/dL 70-105 (BEAKER) (test code = 652) CALCIUM (BEAKER) 9.2 mg/dL 8.4-10.2 (test code = 697) AST (SGOT) 14 U/L 5-34 (BEAKER) (test code = 353) ALT (SGPT) 14 U/L 6-55 (BEAKER) (test code = 347) EGFR (BEAKER) 79 Interpretatio n of eGFR (test code = [...] not appl icable for dialysis patien ts Hand Slitter ID - MARCOMISCELLANEOUS LAB [id number] 10:40:24 Test Item Value Reference Range Interpretation Comments SCAN RESULT (test code = See scanned report. [id number]) TACROLIMUS [id number] 11:16:08 Test Item Value Reference Range Interpretation Comments TACROLIMUS BLOOD 10.0 ng/mL 10.0-20.0 Test perfor med on Nelson (BEAKER) (test code Architec t Immunoassay = 657) system with Chemiluminescen t Microparticle Immunoassay (CM IA) technology. Hand Slitter ID - [id number] 08:10:37 Test Item Value Reference Range Interpretation Comments MAGNESIUM (BEAKER) 1.6 mg/dL 1.6-2.6 Specimen slightly (test code = 627) hemolyzed Hand Slitter ID - MARCOCOMPREHENSIVE METABOLIC [id number] 08:10:37 Test Item Value Reference Range Interpretation Comments TOTAL PROTEIN 7.7 gm/dL 6.0-8.3 Specimen sligh tly (BEAKER) (test hemolyzed code = 770) ALBUMIN (BEAKER) 4.5 g/dL 3.5-5.0 Specimen sl ightly (test code = 1145) hemolyzed ALKALINE 53 U/L 40-150 PHOSPHATASE (BEAKER) (test code = 346) BILIRUBIN TOTAL 0.4 mg/dL 0.2-1.2 Specimen sli ghtly (BEAKER) (test hemolyzed code = 377) SODIUM (BEAKER) 142 meq/L 136-145 (test code = 381) POTASSIUM (BEAKER) 4.3 meq/L 3.5-5.1 Specimen slightly (test code = 379) hemolyzed CHLORIDE (BEAKER) 108 meq/L 98-107 H (test code = 382) CO2 (BEAKER) (test 22 meq/L 22-29 code = 355) BLOOD UREA 19 mg/dL 7-21 NITROGEN (BEAKER) (test code = 354) CREATININE 1.24 mg/dL 0.57-1.25 Specimen slight ly (BEAKER) (test hemolyzed code = 358) GLUCOSE RANDOM 111 mg/dL 70-105 H (BEAKER) (test code = 652) CALCIUM (BEAKER) 9.7 mg/dL 8.4-10.2 (test code = 697) AST (SGOT) 19 U/L 5-34 Specimen slight ly (BEAKER) (test hemolyzed code = 353) ALT (SGPT) 14 U/L 6-55 Specimen slight ly (BEAKER) (test hemolyzed code = 347) EGFR (BEAKER) 75 Interpretatio n of eGFR [...] not appl icable for dialysis patien ts Hand Slitter ID - MARCOTACROLIMUS [id number] 12:01:43 Test Item Value Reference Range Interpretation Comments TACROLIMUS BLOOD 16.1 ng/mL 10.0-20.0 Test perfor med on Nelson (BEAKER) (test code Architec t Immunoassay = 657) system with Chemiluminescen t Microparticle Immunoassay (CM IA) technology. Hand Slitter ID - MMCOMPREHENSIVE METABOLIC [id number] 08:14:58 Test Item Value Reference Range Interpretation Comments TOTAL PROTEIN 7.5 gm/dL 6.0-8.3 (BEAKER) (test code = 770) ALBUMIN (BEAKER) 4.4 g/dL 3.5-5.0 (test code = 1145) ALKALINE 55 U/L 40-150 PHOSPHATASE (BEAKER) (test code = 346) BILIRUBIN TOTAL 0.5 mg/dL 0.2-1.2 (BEAKER) (test code = 377) SODIUM (BEAKER) 140 meq/L 136-145 (test code = 381) POTASSIUM (BEAKER) 4.4 meq/L 3.5-5.1 (test code = 379) CHLORIDE (BEAKER) 105 meq/L 98-107 (test code = 382) CO2 (BEAKER) (test 26 meq/L 22-29 code = 355) BLOOD UREA 16 mg/dL 7-21 NITROGEN (BEAKER) (test code = 354) CREATININE 1.22 mg/dL 0.57-1.25 (BEAKER) (test code = 358) GLUCOSE RANDOM 112 mg/dL 70-105 H (BEAKER) (test code = 652) CALCIUM (BEAKER) 9.7 mg/dL 8.4-10.2 (test code = 697) AST (SGOT) 14 U/L 5-34 (BEAKER) (test code = 353) ALT (SGPT) 10 U/L 6-55 (BEAKER) (test code = 347) EGFR (BEAKER) 77 Interpretatio n of eGFR (test code = [...] not appl icable for dialysis patien ts Hand Slitter ID - MMTACROLIMUS [id number] 12:11:46 Test Item Value Reference Range Interpretation Comments TACROLIMUS BLOOD 21.0 ng/mL 10.0-20.0 H Test perfor med on [employer] (BEAKER) (test code Architec t Immunoassay = 657) system with Chemiluminescen t Microparticle Immunoassay (CM IA) technology. Hand Slitter ID - ADMINCOMPREHENSIVE METABOLIC [id number] 08:14:09 Test Item Value Reference Range Interpretation Comments TOTAL PROTEIN 7.8 gm/dL 6.0-8.3 Specimen sligh tly (BEAKER) (test hemolyzed code = 770) ALBUMIN (BEAKER) 4.4 g/dL 3.5-5.0 Specimen sl ightly (test code = 1145) hemolyzed ALKALINE 54 U/L 40-150 PHOSPHATASE (BEAKER) (test code = 346) BILIRUBIN TOTAL 0.4 mg/dL 0.2-1.2 Specimen sli ghtly (BEAKER) (test hemolyzed code = 377) SODIUM (BEAKER) 141 meq/L 136-145 (test code = 381) POTASSIUM (BEAKER) 4.7 meq/L 3.5-5.1 Specimen slightly (test code = 379) hemolyzed CHLORIDE (BEAKER) 107 meq/L 98-107 (test code = 382) CO2 (BEAKER) (test 25 meq/L 22-29 code = 355) BLOOD UREA 18 mg/dL 7-21 NITROGEN (BEAKER) (test code = 354) CREATININE 1.29 mg/dL 0.57-1.25 H Specimen slight ly (BEAKER) (test hemolyzed code = 358) GLUCOSE RANDOM 117 mg/dL 70-105 H (BEAKER) (test code = 652) CALCIUM (BEAKER) 9.6 mg/dL 8.4-10.2 (test code = 697) AST (SGOT) 20 U/L 5-34 Specimen slight ly (BEAKER) (test hemolyzed code = 353) ALT (SGPT) 11 U/L 6-55 Specimen slight ly (BEAKER) (test hemolyzed code = 347) EGFR (BEAKER) 72 Interpretatio n of eGFR (test code = [...] not appl icable for dialysis patien ts Hand Slitter ID - MMSpecimen slightly lipemicCBC W/PLT COUNT & AUTO DIFFERENTIAL 2022-09-04 07:56:23 Test Item Value Reference Range Interpretation Comments WHITE BLOOD CELL COUNT (BEAKER) 4.6 K/ L 3.5-10.5 (test code = 775) RED BLOOD CELL COUNT (BEAKER) 4.31 M/ L 4.63-6.08 L (test code = 761) HEMOGLOBIN (BEAKER) (test code = 12.2 GM/DL 13.7-17.5 L 410) HEMATOCRIT (BEAKER) (test code = 38.1 % 40.1-51.0 L 411) MEAN CORPUSCULAR VOLUME (BEAKER) 88 fL 79-92 (test code = 753) MEAN CORPUSCULAR HEMOGLOBIN 28.3 pg 25.7-32.2 (BEAKER) (test code = 751) MEAN CORPUSCULAR HEMOGLOBIN CONC 32.0 GM/DL 32.3-36.5 L (BEAKER) (test code = 752) RED CELL DISTRIBUTION WIDTH 14.6 % 11.6-14.4 H (BEAKER) (test code = 412) PLATELET COUNT (BEAKER) (test 302 K/CU MM 150-450 code = 756) MEAN PLATELET VOLUME (BEAKER) 7.8 fL 9.4-12.4 L (test code = 754) NUCLEATED RED BLOOD CELLS 0 /100 WBC 0-0 (BEAKER) (test code = 413) NEUTROPHILS RELATIVE PERCENT 75 % (BEAKER) (test code = 429) LYMPHOCYTES RELATIVE PERCENT 18 % (BEAKER) (test code = 430) MONOCYTES RELATIVE PERCENT 4 % (BEAKER) (test code = 431) EOSINOPHILS RELATIVE PERCENT 1 % (BEAKER) (test code = 432) BASOPHILS RELATIVE PERCENT 1 % (BEAKER) (test code = 437) NEUTROPHILS ABSOLUTE COUNT 3.42 K/ L 1.78-5.38 (BEAKER) (test code = 670) LYMPHOCYTES ABSOLUTE COUNT 0.80 K/ L 1.32-3.57 L (BEAKER) (test code = 414) MONOCYTES ABSOLUTE COUNT (BEAKER) 0.16 K/ L 0.30-0.82 L (test code = 415) EOSINOPHILS ABSOLUTE COUNT 0.04 K/ L 0.04-0.54 (BEAKER) (test code = 416) BASOPHILS ABSOLUTE COUNT (BEAKER) 0.05 K/ L 0.01-0.08 (test code = 417) IMMATURE GRANULOCYTES-RELATIVE 2.00 % 0.00-1.00 H PERCENT (BEAKER) (test code = 2801) CMV PCR, [id number] 13:20:37 Test Item Value Reference Range Interpretation Comments CMV VIRAL LOAD - Negative or below See_Comment [Auto mated message] NEGATIVE (BEAKER) the linear range The sy stem which (test code = of the assay generated this 2558) (<300 IU/mL) result transmit lurdes reference range : <300 - >3,00 0,000 IU/mL. The refe rence range was not u sed to interpret th is result as normal/abnormal . TACROLIMUS [id number] 10:55:37 Test Item Value Reference Range Interpretation Comments TACROLIMUS BLOOD 17.4 ng/mL 10.0-20.0 Test perfor med on [employer] (BEAKER) (test code Architec t Immunoassay = 657) system with Chemiluminescen t Microparticle Immunoassay (CM IA) technology. Hand Slitter ID - ADMINCOMPREHENSIVE METABOLIC [id number] 08:42:50 Test Item Value Reference Range Interpretation Comments TOTAL PROTEIN 7.7 gm/dL 6.0-8.3 (BEAKER) (test code = 770) ALBUMIN (BEAKER) 4.5 g/dL 3.5-5.0 (test code = 1145) ALKALINE 65 U/L 40-150 PHOSPHATASE (BEAKER) (test code = 346) BILIRUBIN TOTAL 0.3 mg/dL 0.2-1.2 (BEAKER) (test code = 377) SODIUM (BEAKER) 144 meq/L 136-145 (test code = 381) POTASSIUM (BEAKER) 4.3 meq/L 3.5-5.1 (test code = 379) CHLORIDE (BEAKER) 108 meq/L 98-107 H (test code = 382) CO2 (BEAKER) (test 27 meq/L 22-29 code = 355) BLOOD UREA 21 mg/dL 7-21 NITROGEN (BEAKER) (test code = 354) CREATININE 1.25 mg/dL 0.57-1.25 (BEAKER) (test code = 358) GLUCOSE RANDOM 107 mg/dL 70-105 H (BEAKER) (test code = 652) CALCIUM (BEAKER) 9.9 mg/dL 8.4-10.2 (test code = 697) AST (SGOT) 11 U/L 5-34 (BEAKER) (test code = 353) ALT (SGPT) 12 U/L 6-55 (BEAKER) (test code = 347) EGFR (BEAKER) 75 Interpretatio n of eGFR [...] not appl icable for dialysis patien ts Hand Slitter ID - EOOCBC W/PLT COUNT & AUTO [id number] 08:18:41 Test Item Value Reference Range Interpretation Comments WHITE BLOOD CELL COUNT (BEAKER) 6.4 K/ L 3.5-10.5 (test code = 775) RED BLOOD CELL COUNT (BEAKER) 4.48 M/ L 4.63-6.08 L (test code = 761) HEMOGLOBIN (BEAKER) (test code = 12.6 GM/DL 13.7-17.5 L 410) HEMATOCRIT (BEAKER) (test code = 39.9 % 40.1-51.0 L 411) MEAN CORPUSCULAR VOLUME (BEAKER) 89 fL 79-92 (test code = 753) MEAN CORPUSCULAR HEMOGLOBIN 28.1 pg 25.7-32.2 (BEAKER) (test code = 751) MEAN CORPUSCULAR HEMOGLOBIN CONC 31.6 GM/DL 32.3-36.5 L (BEAKER) (test code = 752) RED CELL DISTRIBUTION WIDTH 14.6 % 11.6-14.4 H (BEAKER) (test code = 412) PLATELET COUNT (BEAKER) (test 348 K/CU MM 150-450 code = 756) MEAN PLATELET VOLUME (BEAKER) 8.0 fL 9.4-12.4 L (test code = 754) NUCLEATED RED BLOOD CELLS 0 /100 WBC 0-0 (BEAKER) (test code = 413) NEUTROPHILS RELATIVE PERCENT 76 % (BEAKER) (test code = 429) LYMPHOCYTES RELATIVE PERCENT 16 % (BEAKER) (test code = 430) MONOCYTES RELATIVE PERCENT 5 % (BEAKER) (test code = 431) EOSINOPHILS RELATIVE PERCENT 1 % (BEAKER) (test code = 432) BASOPHILS RELATIVE PERCENT 1 % (BEAKER) (test code = 437) NEUTROPHILS ABSOLUTE COUNT 4.87 K/ L 1.78-5.38 (BEAKER) (test code = 670) LYMPHOCYTES ABSOLUTE COUNT 1.01 K/ L 1.32-3.57 L (BEAKER) (test code = 414) MONOCYTES ABSOLUTE COUNT (BEAKER) 0.32 K/ L 0.30-0.82 (test code = 415) EOSINOPHILS ABSOLUTE COUNT 0.03 K/ L 0.04-0.54 L (BEAKER) (test code = 416) BASOPHILS ABSOLUTE COUNT (BEAKER) 0.05 K/ L 0.01-0.08 (test code = 417) IMMATURE GRANULOCYTES-RELATIVE 1.60 % 0.00-1.00 H PERCENT (BEAKER) (test code = 2801) TISSUE [id number] 14:14:15Surgical Pathology Report Case: [id number] Authorizing Provider: Holly Almonte MD Collected: 08/20/2022 03:47 PM Ordering Location: [facility] Received: 08/20/2022 09:28 PM Pathologist: Rosalind Acuna MD Specimen: Heart, x1 specimen for C4D in saline; x3 in formalin The addendum is to report results of C4d immunohistochemical stain. C4d : Negative The controls are adequate. The immunohistochemistry test was developed and its performance characteristics determined by [facility], Pathology Laboratory. It has not been cleared or approved by the U.S. Food and Drug Administration. The FDA has determined that such clearance or approval is not necessary. The test is used for clinical purposes. It should not be regarded as investigational or for research. This laboratory is certified under the Clinical Laboratory Improvement Amendments of 1988 (CLIA-88) as qualified to per form high complexity clinical laboratory testing. 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) pAMR 0, negative for antibody mediated rejectionCapillaries are negative for C4d by immunofluorescence See comment Signing Pathologist Direct Phone Line: [phone] signed by Obey Acuna MD on 08/21/2022 at 4:18 P Tiki of the biopsy pieces shows small foci of perivascular lymphocytic inflammation without definitive associated cardiomyocyte damage, most compatible with ISHLT grade 1R acute cellular rejection.The preliminary [facility] by phone call at 11:45 AM on 08/21/2022.67656, [id number] post heart transplantationHeart biopsyA. HeartReceived are 2containers labeled with the patient's name, medical record number and "heart REG".Received in formalin are 3 guadalupe-brown tissue fragments which are submitted in toto in A1. Received in saline "heart C4D"consists of a 0.2 cm guadalupe soft tissue fragment which is frozen for immunofluorecent studies.PerformedThe interpretation of this case included the use of immunohistochemistry, immunofluorescence or special stains.Indirect immunofluorescence (block A1): NegativeIndirect immunofluorescence for C4d shows focal nonspecific staining in the interstitium, but no staining of myocardial capillaries. External positive control tissue shows strongly positive C4d staining in capillaries.Control Slides Examined: In-house known positive controls were evaluated along with the test tissue. These control slides run miley ngside of the patients sample show appropriate staining. Internal positive and negative controls when available are evaluatedImmunohistochemistry and/or immunofluorescence technical testing was performed at [facility], Pathology Laboratory where it was developed and its performance characteristics were determined. It has not been cleared or approved by the U.S. Food and Drug Administration. The FDA has determined that such clearance or approval is not necessary. The test is used for clinical purposes. It should not be regarded as investigational or for research. This laboratory is certified under the Clinical Laboratory Improvement Amendments of 1988 (CLIA-88) as qualified toperform high complexity clinical laboratory testing. [facility], Department ofPathology, [address] [place] [address], [facility], [address] [place] [address], [facility], [facility] of [facility], [address] [place] [address], ITA-1 PCR, [id number] 09:13:59 Test Item Value Reference Range Interpretation Comments HIV-1 RESULT HIV RNA not detected HIV RNA not detected COMPONENT (BEAKER) (test code = 2703) TACROLIMUS [id number] 15:12:22 Test Item Value Reference Range Interpretation Comments TACROLIMUS BLOOD 14.7 ng/mL 10.0-20.0 Test perfor med on [employer] (BEAKER) (test code Architec t Immunoassay = 657) system with Chemiluminescen t Microparticle Immunoassay (CM IA) technology. Hand Slitter ID - ADMINCOMPREHENSIVE METABOLIC [id number] 14:06:46 Test Item Value Reference Range Interpretation Comments TOTAL PROTEIN 7.6 gm/dL 6.0-8.3 (BEAKER) (test code = 770) ALBUMIN (BEAKER) 4.4 g/dL 3.5-5.0 (test code = 1145) ALKALINE 63 U/L 40-150 PHOSPHATASE (BEAKER) (test code = 346) BILIRUBIN TOTAL 0.3 mg/dL 0.2-1.2 (BEAKER) (test code = 377) SODIUM (BEAKER) 140 meq/L 136-145 (test code = 381) POTASSIUM (BEAKER) 4.5 meq/L 3.5-5.1 (test code = 379) CHLORIDE (BEAKER) 107 meq/L 98-107 (test code = 382) CO2 (BEAKER) (test 22 meq/L 22-29 code = 355) BLOOD UREA 17 mg/dL 7-21 NITROGEN (BEAKER) (test code = 354) CREATININE 1.15 mg/dL 0.57-1.25 (BEAKER) (test code = 358) GLUCOSE RANDOM 127 mg/dL 70-105 H (BEAKER) (test code = 652) CALCIUM (BEAKER) 9.8 mg/dL 8.4-10.2 (test code = 697) AST (SGOT) 11 U/L 5-34 (BEAKER) (test code = 353) ALT (SGPT) 13 U/L 6-55 (BEAKER) (test code = 347) EGFR (BEAKER) 82 Interpretatio n of eGFR (test code = [...] not appl icable for dialysis patien ts [id number] 14:06:46 Test Item Value Reference Range Interpretation Comments MAGNESIUM (BEAKER) (test code = 1.5 mg/dL 1.6-2.6 L 627) CBC W/PLT COUNT & AUTO [id number] 13:48:14 Test Item Value Reference Range Interpretation Comments WHITE BLOOD CELL COUNT (BEAKER) 8.0 K/ L 3.5-10.5 (test code = 775) RED BLOOD CELL COUNT (BEAKER) 4.25 M/ L 4.63-6.08 L (test code = 761) HEMOGLOBIN (BEAKER) (test code = 12.2 GM/DL 13.7-17.5 L 410) HEMATOCRIT (BEAKER) (test code = 37.0 % 40.1-51.0 L 411) MEAN CORPUSCULAR VOLUME (BEAKER) 87 fL 79-92 (test code = 753) MEAN CORPUSCULAR HEMOGLOBIN 28.7 pg 25.7-32.2 (BEAKER) (test code = 751) MEAN CORPUSCULAR HEMOGLOBIN CONC 33.0 GM/DL 32.3-36.5 (BEAKER) (test code = 752) RED CELL DISTRIBUTION WIDTH 14.6 % 11.6-14.4 H (BEAKER) (test code = 412) PLATELET COUNT (BEAKER) (test 327 K/CU MM 150-450 code = 756) MEAN PLATELET VOLUME (BEAKER) 8.0 fL 9.4-12.4 L (test code = 754) NUCLEATED RED BLOOD CELLS 0 /100 WBC 0-0 (BEAKER) (test code = 413) NEUTROPHILS RELATIVE PERCENT 85 % (BEAKER) (test code = 429) LYMPHOCYTES RELATIVE PERCENT 10 % (BEAKER) (test code = 430) MONOCYTES RELATIVE PERCENT 4 % (BEAKER) (test code = 431) EOSINOPHILS RELATIVE PERCENT 0 % (BEAKER) (test code = 432) BASOPHILS RELATIVE PERCENT 1 % (BEAKER) (test code = 437) NEUTROPHILS ABSOLUTE COUNT 6.84 K/ L 1.78-5.38 H (BEAKER) (test code = 670) LYMPHOCYTES ABSOLUTE COUNT 0.78 K/ L 1.32-3.57 L (BEAKER) (test code = 414) MONOCYTES ABSOLUTE COUNT (BEAKER) 0.30 K/ L 0.30-0.82 (test code = 415) EOSINOPHILS ABSOLUTE COUNT 0.01 K/ L 0.04-0.54 L (BEAKER) (test code = 416) BASOPHILS ABSOLUTE COUNT (BEAKER) 0.05 K/ L 0.01-0.08 (test code = 417) IMMATURE GRANULOCYTES-RELATIVE 0.60 % 0.00-1.00 PERCENT (BEAKER) (test code = 2801) HEPATITIS B PCR, [id number] 11:30:06 Test Item Value Reference Range Interpretation Comments HBV RESULT COMPONENT HBV DNA not detected HBV DNA not detected (BEAKER) (test code = 7033) HEPATITIS C PCR, [id number] 10:55:53 Test Item Value Reference Range Interpretation Comments HCV RESULT COMPONENT HCV RNA not detected HCV RNA not detected (BEAKER) (test code = 5354) CMV PCR, [id number] 07:03:54 Test Item Value Reference Range Interpretation Comments CMV VIRAL LOAD - Negative or below See_Comment [Auto mated message] NEGATIVE (BEAKER) the linear range The sy stem which (test code = of the assay generated this 7856) (<300 IU/mL) result transmit lurdes reference range : <300 - >3,00 0,000 IU/mL. The refe rence range was not u sed to interpret th is result as normal/abnormal . TACROLIMUS [id number] 13:46:37 Test Item Value Reference Range Interpretation Comments TACROLIMUS BLOOD 12.7 ng/mL 10.0-20.0 Test perfor med on Nelson (BEAKER) (test code Architec t Immunoassay = 657) system with Chemiluminescen t Microparticle Immunoassay (CM IA) technology. Hand Slitter ID - ADMINCOMPREHENSIVE METABOLIC [id number] 11:16:18 Test Item Value Reference Range Interpretation Comments TOTAL PROTEIN 7.9 gm/dL 6.0-8.3 (BEAKER) (test code = 770) ALBUMIN (BEAKER) 4.4 g/dL 3.5-5.0 (test code = 1145) ALKALINE 65 U/L 40-150 PHOSPHATASE (BEAKER) (test code = 346) BILIRUBIN TOTAL 0.5 mg/dL 0.2-1.2 (BEAKER) (test code = 377) SODIUM (BEAKER) 143 meq/L 136-145 (test code = 381) POTASSIUM (BEAKER) 4.1 meq/L 3.5-5.1 (test code = 379) CHLORIDE (BEAKER) 108 meq/L 98-107 H (test code = 382) CO2 (BEAKER) (test 23 meq/L 22-29 code = 355) BLOOD UREA 17 mg/dL 7-21 NITROGEN (BEAKER) (test code = 354) CREATININE 1.24 mg/dL 0.57-1.25 (BEAKER) (test code = 358) GLUCOSE RANDOM 99 mg/dL 70-105 (BEAKER) (test code = 652) CALCIUM (BEAKER) 9.9 mg/dL 8.4-10.2 (test code = 697) AST (SGOT) 12 U/L 5-34 (BEAKER) (test code = 353) ALT (SGPT) 13 U/L 6-55 (BEAKER) (test code = 347) EGFR (BEAKER) 75 Interpretatio n of eGFR [...] not appl icable for dialysis patien ts Hand Slitter ID - [id number] 11:16:18 Test Item Value Reference Range Interpretation Comments MAGNESIUM (BEAKER) (test code = 1.6 mg/dL 1.6-2.6 627) Hand Slitter ID - MARCOCBC W/PLT COUNT & AUTO [id number] 10:54:09 Test Item Value Reference Range Interpretation Comments WHITE BLOOD CELL COUNT (BEAKER) 6.2 K/ L 3.5-10.5 (test code = 775) RED BLOOD CELL COUNT (BEAKER) 4.56 M/ L 4.63-6.08 L (test code = 761) HEMOGLOBIN (BEAKER) (test code = 13.0 GM/DL 13.7-17.5 L 410) HEMATOCRIT (BEAKER) (test code = 41.0 % 40.1-51.0 411) MEAN CORPUSCULAR VOLUME (BEAKER) 90 fL 79-92 (test code = 753) MEAN CORPUSCULAR HEMOGLOBIN 28.5 pg 25.7-32.2 (BEAKER) (test code = 751) MEAN CORPUSCULAR HEMOGLOBIN CONC 31.7 GM/DL 32.3-36.5 L (BEAKER) (test code = 752) RED CELL DISTRIBUTION WIDTH 14.6 % 11.6-14.4 H (BEAKER) (test code = 412) PLATELET COUNT (BEAKER) (test 387 K/CU MM 150-450 code = 756) MEAN PLATELET VOLUME (BEAKER) 8.5 fL 9.4-12.4 L (test code = 754) NUCLEATED RED BLOOD CELLS 0 /100 WBC 0-0 (BEAKER) (test code = 413) NEUTROPHILS RELATIVE PERCENT 76 % (BEAKER) (test code = 429) LYMPHOCYTES RELATIVE PERCENT 18 % (BEAKER) (test code = 430) MONOCYTES RELATIVE PERCENT 5 % (BEAKER) (test code = 431) EOSINOPHILS RELATIVE PERCENT 0 % (BEAKER) (test code = 432) BASOPHILS RELATIVE PERCENT 1 % (BEAKER) (test code = 437) NEUTROPHILS ABSOLUTE COUNT 4.70 K/ L 1.78-5.38 (BEAKER) (test code = 670) LYMPHOCYTES ABSOLUTE COUNT 1.12 K/ L 1.32-3.57 L (BEAKER) (test code = 414) MONOCYTES ABSOLUTE COUNT (BEAKER) 0.31 K/ L 0.30-0.82 (test code = 415) EOSINOPHILS ABSOLUTE COUNT 0.01 K/ L 0.04-0.54 L (BEAKER) (test code = 416) BASOPHILS ABSOLUTE COUNT (BEAKER) 0.06 K/ L 0.01-0.08 (test code = 417) IMMATURE GRANULOCYTES-RELATIVE 0.30 % 0.00-1.00 PERCENT (BEAKER) (test code = 2801) TISSUE [id number] 12:49:24Surgical Pathology Report Case: [id number] Authorizing Provider: Holly Almonte MD Collected: 08/07/2022 07:14 AM Ordering Location: [facility] Received: 08/07/2022 09:37 AM Pathologist: Ashly Cloud MD Specimen: Heart, C4D or Histopath Transplanted heart, right ventricle, endomyocardial biopsy: 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 One of the biopsy pieces shows small foci of perivascular lymphocytic inflammation without definitive associated cardiomyocyte damage, most compatible with ISHLT grade 1R acute cellular rejection. The C4d immunofluorescence control is suboptimal and IHC was performed. There is faint focal capillary staining comprising approximately 5- 10% of capillaries. There are no other histopathologic features of antibody mediated rejection. Endothelial activation can occur in other conditions like infection, blood product transfusion, or ECMO mechanical circulatory support. Correlation with allograft functions and DSA findings is recommended. Dr. Holly Almonte was notified of the results via Heidi Shaulis on 08/09/2022 at [id number], [id number], [id number] transplantA. HeartReceived are 2 containers labeled with the patient's name, accession number and "heart".Received in saline is a 0.2 x 0.2 x 0.1 cm guadalupe soft tissue fragment which is entirely frozen for C4D studies.Received in formalin are 3 guadalupe soft tissue fragments measuring up to 0.2 cm in greatest dimension, which are filtered and submitted in toto in A1.GERARDO Pennington, HT ([facility])PerformedThe interpretationof this case included the use of immunohistochemistry or special stains.Control Slides Examined: In-house known positive controls were evaluated along with the test tissue. These control slides run alongside of the patients sample show appropriate staining. Internal positive and negative controls whenavailable are evaluated Immunohistochemistry technical testing was performed at [facility], Pathology Laboratory where it was developed and its performance characteristics were determined. It has not been cleared or approved by the U.S. Food and Drug Administration. The FDA has determined that such clearance or approval is not necessary. The test is used for clinical purposes. It should not be regarded as investigational or for research. This laboratory is certified under the Clinical Laboratory Improvement Amendments of 1988 (CLIA-88) as qualified to perform high complexity clinical laboratory testing.[facility], Department of Pathology, [address] [place], [place] [id number], [facility], [facility] of [facility], [address] [place] [address], [facility] [place], [facility] of [facility], [address] [place] [address], GJVAJNKRAO [id number] 14:23:46 Test Item Value Reference Range Interpretation Comments TACROLIMUS BLOOD 22.8 ng/mL 10.0-20.0 H Test perfor med on Nelson (simpleFLOORS) (test code Architec t Immunoassay = 657) system with Chemiluminescen t Microparticle Immunoassay (CM IA) technology. Hand Slitter ID - MMOperator ID - ADMINSIROLIMUS [id number] 14:21:59 Test Item Value Reference Range Interpretation Comments SIROLIMUS LEVEL BLOOD (simpleFLOORS) (test < ng/mL 5.0-15.0 L code = 806) Hand Slitter ID - MMCOMPREHENSIVE METABOLIC [id number] 06:42:08 Test Item Value Reference Range Interpretation Comments TOTAL PROTEIN 7.8 gm/dL 6.0-8.3 (BEAKER) (test code = 770) ALBUMIN (BEAKER) 4.5 g/dL 3.5-5.0 (test code = 1145) ALKALINE 72 U/L 40-150 PHOSPHATASE (BEAKER) (test code = 346) BILIRUBIN TOTAL 0.2 mg/dL 0.2-1.2 (BEAKER) (test code = 377) SODIUM (BEAKER) 142 meq/L 136-145 (test code = 381) POTASSIUM (BEAKER) 4.1 meq/L 3.5-5.1 (test code = 379) CHLORIDE (BEAKER) 109 meq/L 98-107 H (test code = 382) CO2 (BEAKER) (test 20 meq/L 22-29 L code = 355) BLOOD UREA 24 mg/dL 7-21 H NITROGEN (BEAKER) (test code = 354) CREATININE 1.19 mg/dL 0.57-1.25 (BEAKER) (test code = 358) GLUCOSE RANDOM 109 mg/dL 70-105 H (BEAKER) (test code = 652) CALCIUM (BEAKER) 9.8 mg/dL 8.4-10.2 (test code = 697) AST (SGOT) 9 U/L 5-34 (BEAKER) (test code = 353) ALT (SGPT) 13 U/L 6-55 (BEAKER) (test code = 347) EGFR (BEAKER) 79 Interpretatio n of eGFR (test code = [...] not appl icable for dialysis patien ts Hand Slitter ID - [id number] 06:42:08 Test Item Value Reference Range Interpretation Comments MAGNESIUM (BEAKER) (test code = 1.5 mg/dL 1.6-2.6 L 627) Hand Slitter ID - ADMINCBC W/PLT COUNT & AUTO [id number] 06:26:09 Test Item Value Reference Range Interpretation Comments WHITE BLOOD CELL COUNT (BEAKER) 6.1 K/ L 3.5-10.5 (test code = 775) RED BLOOD CELL COUNT (BEAKER) 4.14 M/ L 4.63-6.08 L (test code = 761) HEMOGLOBIN (BEAKER) (test code = 11.8 GM/DL 13.7-17.5 L 410) HEMATOCRIT (BEAKER) (test code = 37.3 % 40.1-51.0 L 411) MEAN CORPUSCULAR VOLUME (BEAKER) 90 fL 79-92 (test code = 753) MEAN CORPUSCULAR HEMOGLOBIN 28.5 pg 25.7-32.2 (BEAKER) (test code = 751) MEAN CORPUSCULAR HEMOGLOBIN CONC 31.6 GM/DL 32.3-36.5 L (BEAKER) (test code = 752) RED CELL DISTRIBUTION WIDTH 15.5 % 11.6-14.4 H (BEAKER) (test code = 412) PLATELET COUNT (BEAKER) (test 489 K/CU MM 150-450 H code = 756) MEAN PLATELET VOLUME (BEAKER) 8.0 fL 9.4-12.4 L (test code = 754) NUCLEATED RED BLOOD CELLS 0 /100 WBC 0-0 (BEAKER) (test code = 413) NEUTROPHILS RELATIVE PERCENT 66 % (BEAKER) (test code = 429) LYMPHOCYTES RELATIVE PERCENT 25 % (BEAKER) (test code = 430) MONOCYTES RELATIVE PERCENT 6 % (BEAKER) (test code = 431) EOSINOPHILS RELATIVE PERCENT 0 % (BEAKER) (test code = 432) BASOPHILS RELATIVE PERCENT 1 % (BEAKER) (test code = 437) NEUTROPHILS ABSOLUTE COUNT 4.03 K/ L 1.78-5.38 (BEAKER) (test code = 670) LYMPHOCYTES ABSOLUTE COUNT 1.49 K/ L 1.32-3.57 (BEAKER) (test code = 414) MONOCYTES ABSOLUTE COUNT (BEAKER) 0.38 K/ L 0.30-0.82 (test code = 415) EOSINOPHILS ABSOLUTE COUNT 0.00 K/ L 0.04-0.54 L (BEAKER) (test code = 416) BASOPHILS ABSOLUTE COUNT (BEAKER) 0.08 K/ L 0.01-0.08 (test code = 417) IMMATURE GRANULOCYTES-RELATIVE 1.80 % 0.00-1.00 H PERCENT (BEAKER) (test code = 2801) CMV PCR, [id number] 14:14:13 Test Item Value Reference Range Interpretation Comments CMV VIRAL LOAD - Negative or below See_Comment [Auto mated message] NEGATIVE (BEAKER) the linear range The sy stem which (test code = of the assay generated this 2558) (<300 IU/mL) result transmit lurdes reference range : <300 - >3,00 0,000 IU/mL. The refe rence range was not u sed to interpret th is result as normal/abnormal . TACROLIMUS [id number] 11:57:39 Test Item Value Reference Range Interpretation Comments TACROLIMUS BLOOD 15.7 ng/mL 10.0-20.0 Test perfor med on [employer] (BEAKER) (test code Architec t Immunoassay = 657) system with Chemiluminescen t Microparticle Immunoassay (CM IA) technology. Hand Slitter ID - [id number] 08:56:17 Test Item Value Reference Range Interpretation Comments MAGNESIUM (BEAKER) 1.5 mg/dL 1.6-2.6 L Specimen slightly (test code = 627) hemolyzed Hand Slitter ID - MMCOMPREHENSIVE METABOLIC [id number] 08:56:17 Test Item Value Reference Range Interpretation Comments TOTAL PROTEIN 7.2 gm/dL 6.0-8.3 Specimen sligh tly (BEAKER) (test hemolyzed code = 770) ALBUMIN (BEAKER) 4.1 g/dL 3.5-5.0 Specimen sl ightly (test code = 1145) hemolyzed ALKALINE 79 U/L 40-150 PHOSPHATASE (BEAKER) (test code = 346) BILIRUBIN TOTAL 0.2 mg/dL 0.2-1.2 Specimen sli ghtly (BEAKER) (test hemolyzed code = 377) SODIUM (BEAKER) 140 meq/L 136-145 (test code = 381) POTASSIUM (BEAKER) 4.2 meq/L 3.5-5.1 Specimen slightly (test code = 379) hemolyzed CHLORIDE (BEAKER) 107 meq/L 98-107 (test code = 382) CO2 (BEAKER) (test 24 meq/L 22-29 code = 355) BLOOD UREA 23 mg/dL 7-21 H NITROGEN (BEAKER) (test code = 354) CREATININE 1.08 mg/dL 0.57-1.25 Specimen slight ly (BEAKER) (test hemolyzed code = 358) GLUCOSE RANDOM 105 mg/dL 70-105 (BEAKER) (test code = 652) CALCIUM (BEAKER) 9.8 mg/dL 8.4-10.2 (test code = 697) AST (SGOT) 13 U/L 5-34 Specimen slight ly (BEAKER) (test hemolyzed code = 353) ALT (SGPT) 18 U/L 6-55 Specimen slight ly (BEAKER) (test hemolyzed code = 347) EGFR (BEAKER) 89 Interpretatio n of eGFR (test code = [...] not appl icable for dialysis patien ts Hand Slitter ID - MMSpecimen slightly lipemicCBC W/PLT COUNT & AUTO DIFFERENTIAL 2022-08-02 08:37:54 Test Item Value Reference Range Interpretation Comments WHITE BLOOD CELL COUNT (BEAKER) 4.4 K/ L 3.5-10.5 (test code = 775) RED BLOOD CELL COUNT (BEAKER) 3.52 M/ L 4.63-6.08 L (test code = 761) HEMOGLOBIN (BEAKER) (test code = 10.6 GM/DL 13.7-17.5 L 410) HEMATOCRIT (BEAKER) (test code = 32.5 % 40.1-51.0 L 411) MEAN CORPUSCULAR VOLUME (BEAKER) 92 fL 79-92 (test code = 753) MEAN CORPUSCULAR HEMOGLOBIN 30.1 pg 25.7-32.2 (BEAKER) (test code = 751) MEAN CORPUSCULAR HEMOGLOBIN CONC 32.6 GM/DL 32.3-36.5 (BEAKER) (test code = 752) RED CELL DISTRIBUTION WIDTH 15.5 % 11.6-14.4 H (BEAKER) (test code = 412) PLATELET COUNT (BEAKER) (test 380 K/CU MM 150-450 code = 756) MEAN PLATELET VOLUME (BEAKER) 7.9 fL 9.4-12.4 L (test code = 754) NUCLEATED RED BLOOD CELLS 0 /100 WBC 0-0 (BEAKER) (test code = 413) NEUTROPHILS RELATIVE PERCENT 71 % (BEAKER) (test code = 429) LYMPHOCYTES RELATIVE PERCENT 22 % (BEAKER) (test code = 430) MONOCYTES RELATIVE PERCENT 5 % (BEAKER) (test code = 431) EOSINOPHILS RELATIVE PERCENT 1 % (BEAKER) (test code = 432) BASOPHILS RELATIVE PERCENT 1 % (BEAKER) (test code = 437) NEUTROPHILS ABSOLUTE COUNT 3.11 K/ L 1.78-5.38 (BEAKER) (test code = 670) LYMPHOCYTES ABSOLUTE COUNT 0.94 K/ L 1.32-3.57 L (BEAKER) (test code = 414) MONOCYTES ABSOLUTE COUNT (BEAKER) 0.20 K/ L 0.30-0.82 L (test code = 415) EOSINOPHILS ABSOLUTE COUNT 0.05 K/ L 0.04-0.54 (BEAKER) (test code = 416) BASOPHILS ABSOLUTE COUNT (BEAKER) 0.05 K/ L 0.01-0.08 (test code = 417) IMMATURE GRANULOCYTES-RELATIVE 0.50 % 0.00-1.00 PERCENT (BEAKER) (test code = 2801) TISSUE [id number] 16:24:02Surgical Pathology Report Case: [id number] Authorizing Provider: Holly Almonte MD Collected: 07/31/2022 03:19 PM Ordering Location: [facility] Received: 07/31/2022 04:34 PM Pathologist: Gracy Cruz MD Specimen: Heart, C4D OR Histopath A. Transplanted heart, right ventricle, endomyocardial biopsy: - ACR 0R, negative for acute cellular rejection - pAMR 0, negative for pathologic antibody mediated rejection - Capillaries are negative for C4d by immunofluorescence - See comment Signing Pathologist Direct Phone Line: [phone] signed by Loni Cruz MD on 08/01/2022 at 4:24 PMThree cardiac biopsy pieces composed predominantly of myocardium are examined. There is no perivascular or interstitial lymphocytic infiltrate in the myocardium to suggest acute cellular rejection (ACR 0R). C4d is negative for capillary staining by immunofluorescence and the characteristic histopathologic features of antibody-mediated rejection are not identified (pAMR 0).The abovefindings were communicated to the heart administrative receptionist coordinator (Merlyn Bradley) via phone call on 08/01/22 at 4:20 PM. [phone] S/p OHT. A. HeartReceived are 2 containers labeled with the patient's name, medical record number and "heart REG".Received in formalin are 2 guadalupe-brown tissue fragments, each measuring 0.2 x 0.1 x 0.1 cm, which are submitted in toto in A1. Received in saline "heart C4D" consists of a 0.2 cm guadalupe soft tissue fragment which is frozen for immunofluorecent studies.Kiesha Marquez.Microscopic examination is performed and the salient findings are incorporated into the final diagnosis and comment sections. The interpretation of this case included the use of immunohistochemistry, immunofluorescence or special stains. Indirect immunofluorescence (block A1):Indirect immunofluorescence for C4d shows focal nonspecific staining in the interstitium, but no staining of myocardial capilla josé. External positive control tissue shows strongly positive C4d staining in capillaries. Control Slides Examined: In-house known positive controls were evaluated along with the test tissue. These control slides run alongside of the patients sample show appropriate staining. Internal positive and negative controls when available are evaluated Immunohistochemistry and/or immunofluorescence technicaltesting was performed at [facility], Pathology Laboratory where it was developed and its performance characteristics were determined. It has not been cleared or approved by the U.S. Food and Drug Administration. The FDA has determined that such clearance or approval is not necessary. The test is used for clinical purposes. It should not be regarded as investigational or for research. This laboratory is certified under the Clinical Laboratory Improvement Amendments of 1988 (CLIA-88) as qualified to perform high complexity clinical laboratory testing. [facility], Department of Pathology, [address] [place] [address], [facility] [place], [facility] of [facility]ology, [address] [place] [address], [facility]yp[facility] [place], Department of Pathology, [address] [place] [address], [facility] [id number] 08:58:18 Test Item Value Reference Range Interpretation Comments SCAN RESULT (test code = See scanned report. [id number]) POCT-GLUCOSE [id number] 16:43:21 Test Item Value Reference Range Interpretation Comments POC-GLUCOSE METER 91 mg/dL 70-110 : TESTED A T [facility] [address] ([facility]) (test code = FILEMON Fuentes [facility], 1538) [address]: Hand Slitter/Techni macrina ID = [id number] for Angella Ureña SIROLIMUS [id number] 12:20:32 Test Item Value Reference Range Interpretation Comments SIROLIMUS LEVEL BLOOD (BEAKER) (test < ng/mL 5.0-15.0 L code = 806) Hand Slitter ID - ADMINTACROLIMUS [id number] 12:11:39 Test Item Value Reference Range Interpretation Comments TACROLIMUS BLOOD 10.3 ng/mL 10.0-20.0 Test perfor med on Nelson (BEAKER) (test code Architec t Immunoassay = 657) system with Chemiluminescen t Microparticle Immunoassay (CM IA) technology. Hand Slitter ID - [id number] 10:55:53 Test Item Value Reference Range Interpretation Comments MAGNESIUM (BEAKER) (test code = 1.6 mg/dL 1.6-2.6 627) COMPREHENSIVE METABOLIC [id number] 10:55:52 Test Item Value Reference Range Interpretation Comments TOTAL PROTEIN 7.1 gm/dL 6.0-8.3 (BEAKER) (test code = 770) ALBUMIN (BEAKER) 4.2 g/dL 3.5-5.0 (test code = 1145) ALKALINE 72 U/L 40-150 PHOSPHATASE (BEAKER) (test code = 346) BILIRUBIN TOTAL 0.3 mg/dL 0.2-1.2 (BEAKER) (test code = 377) SODIUM (BEAKER) 136 meq/L 136-145 (test code = 381) POTASSIUM (BEAKER) 4.2 meq/L 3.5-5.1 (test code = 379) CHLORIDE (BEAKER) 102 meq/L 98-107 (test code = 382) CO2 (BEAKER) (test 24 meq/L 22-29 code = 355) BLOOD UREA 27 mg/dL 7-21 H NITROGEN (BEAKER) (test code = 354) CREATININE 1.11 mg/dL 0.57-1.25 (BEAKER) (test code = 358) GLUCOSE RANDOM 97 mg/dL 70-105 (BEAKER) (test code = 652) CALCIUM (BEAKER) 9.5 mg/dL 8.4-10.2 (test code = 697) AST (SGOT) 12 U/L 5-34 (BEAKER) (test code = 353) ALT (SGPT) 21 U/L 6-55 (BEAKER) (test code = 347) EGFR (BEAKER) 86 Interpretatio n of eGFR (test code = [...] not appl icable for dialysis patien ts CBC W/PLT COUNT & AUTO [id number] 10:30:51 Test Item Value Reference Range Interpretation Comments WHITE BLOOD CELL COUNT (BEAKER) 5.2 K/ L 3.5-10.5 (test code = 775) RED BLOOD CELL COUNT (BEAKER) 3.77 M/ L 4.63-6.08 L (test code = 761) HEMOGLOBIN (BEAKER) (test code = 10.9 GM/DL 13.7-17.5 L 410) HEMATOCRIT (BEAKER) (test code = 34.4 % 40.1-51.0 L 411) MEAN CORPUSCULAR VOLUME (BEAKER) 91 fL 79-92 (test code = 753) MEAN CORPUSCULAR HEMOGLOBIN 28.9 pg 25.7-32.2 (BEAKER) (test code = 751) MEAN CORPUSCULAR HEMOGLOBIN CONC 31.7 GM/DL 32.3-36.5 L (BEAKER) (test code = 752) RED CELL DISTRIBUTION WIDTH 15.2 % 11.6-14.4 H (BEAKER) (test code = 412) PLATELET COUNT (BEAKER) (test 333 K/CU MM 150-450 code = 756) MEAN PLATELET VOLUME (BEAKER) 7.7 fL 9.4-12.4 L (test code = 754) NUCLEATED RED BLOOD CELLS 0 /100 WBC 0-0 (BEAKER) (test code = 413) NEUTROPHILS RELATIVE PERCENT 72 % (BEAKER) (test code = 429) LYMPHOCYTES RELATIVE PERCENT 19 % (BEAKER) (test code = 430) MONOCYTES RELATIVE PERCENT 4 % (BEAKER) (test code = 431) EOSINOPHILS RELATIVE PERCENT 3 % (BEAKER) (test code = 432) BASOPHILS RELATIVE PERCENT 2 % (BEAKER) (test code = 437) NEUTROPHILS ABSOLUTE COUNT 3.78 K/ L 1.78-5.38 (BEAKER) (test code = 670) LYMPHOCYTES ABSOLUTE COUNT 1.01 K/ L 1.32-3.57 L (BEAKER) (test code = 414) MONOCYTES ABSOLUTE COUNT (BEAKER) 0.21 K/ L 0.30-0.82 L (test code = 415) EOSINOPHILS ABSOLUTE COUNT 0.13 K/ L 0.04-0.54 (BEAKER) (test code = 416) BASOPHILS ABSOLUTE COUNT (BEAKER) 0.08 K/ L 0.01-0.08 (test code = 417) IMMATURE GRANULOCYTES-RELATIVE 0.60 % 0.00-1.00 PERCENT (BEAKER) (test code = 2801) CT ABDOMEN WITHOUT IV [id number] 17:33:[address] [facility] 1980 Sex: MCT of the Chest and Abdomen dated 3Clinical information: PE suspected, high probComment: Axial images of the chest and abdomen were obtained fromthoracic inlet to the upper pelvis without GI or intravenous contrast.This exam was performed according to our departmental dose-optimizationprogram, which includes automated exposure control, adjustment of the mAand/or kV according to patient size and/or use of interactivereconstruction technique.Both thyroid lobes are normal in appearance.Heart is normal in size. Great vessels are unremarkable. No adenopathyin the mediastinum or perihilar region. Trachea and mainstem bronchusare patent. Subsegmental atelectasis is seen in the lingula and both lower lobes.The rest of the lungs are clear. No nodular, mass lesion or airspacedisease noted. No interstitial disease or bronchiectasis present.There is trace left pleural effusion.Liver and spleen are normalin size without focal abnormality. Gallbladder is contracted. No gallstone or biliary dilatation is n oted. Pancreas and adrenals are unremarkable. Both kidneys are normal in size. No hydronephrosis, solid or cystic massis seen in either kidney.The small and large bowel are unremarkable. Appendix is not visualized.No mass, adenopathy or ascites present.Subcutaneous emphysema is seen in the anterior abdomen and left flank.No ventral or inguinal hernia is seen.IMPRESSION:Impression: 1. Trace left pleural effusion with subsegmental atelectasis in thelingula and both lower lobes.2. Subcutaneous emphysema in the anterior abdominal wall and left flank.Electronically Signed By: Sydni Vazquez07/25/2022 17:35 CDTWorkstation Name: [id number] CHEST WITHOUT IV [id number] 17:33:[address] [facility] : 1980 Sex: MCT of the Chest and Abdomen dated 3Clinical information: PE suspected, high probComment: Axial images of the chest and abdomen were obtained fromthoracic inlet to the upper pelvis without GI or intravenous contrast.This exam was performed according to our departmental dose-optimizationprogram, which includes automated exposure control, adjustment of the mAand/or kV according to patient size and/or use of interactivereconstruction technique.Both thyroid lobes are normal in appearance.Heart is normal in size. Great vessels are unremarkable. No adenopathyin the mediastinum or perihilar region. Trachea and mainstem bronchusare patent. Subsegmental atelectasis is seen in the lingula and both lower lobes.The rest of the lungs are clear. No nodular, mass lesion or airspacedisease noted. No interstitial disease or bronchiectasis present.There is trace left pleural effusion.Liver and spleen are normalin size without focal abnormality. Gallbladder is contracted. No gallstone or biliary dilatation is n oted. Pancreas and adrenals are unremarkable. Both kidneys are normal in size. No hydronephrosis, solid or cystic massis seen in either kidney.The small and large bowel are unremarkable. Appendix is not visualized.No mass, adenopathy or ascites present.Subcutaneous emphysema is seen in the anterior abdomen and left flank.No ventral or inguinal hernia is seen.IMPRESSION:Impression: 1. Trace left pleural effusion with subsegmental atelectasis in thelingula and both lower lobes.2. Subcutaneous emphysema in the anterior abdominal wall and left flank.Electronically Signed By: Sydni Vazquez07/25/2022 17:35 CDTWorkstation Name: [id number] 17:19:32Surgical Pathology Report Case: [id number] Authorizing Provider: Holly Almonte MD Collected: 07/24/2022 02:04 PM Ordering Location: [address] Received: 07/24/2022 05:01 PM Pathologist: Ashly aceves MD Specimen: Heart, C4D Transplanted heart, right ventricle, endomyocardial biopsy: Mild acutecellular rejection (ACR grade 1R by ISHLT criteria) pAMR 0, negative for antibody mediated rejectionCapillaries are negative for C4d by immunofluorescence See comment Signing Pathologist Direct Phone Line: [phone] signed by Ashly Cloud MD on 07/25/2022 at 5:19 PMSections from the formalin-fixed and fresh cardiac biopsy specimens show a total of 5 cardiac biopsy pieces composedpredominantly of myocardium. Three of the biopsy pieces shows small foci of perivascular/interstitial lymphocytic inflammation without one focus of associated cardiomyocyte damage, most compatible withISHLT grade 1R acute cellular rejection. There is also a Quilty lesion with extension into the underl myrna myocardium. C4d is negative for capillary staining by immunofluorescence and no histopathologicfeatures of antibody-mediated rejection are seen (pAMR 0).The above findings were communicated to the heart administrative receptionist coordinator (Sofya) via phone ([phone]) on07/25/2022 at [phone], [id number]. HeartReceived are 2 containers labeled with the patient's name, medical record number and "heart REG".Received in formalin are 4 guadalupe-brown tissue fragments measuring up to 0.1 cm in greatest dimension, which are submitted in toto in A1. Received in saline "heart C4D" consists of a 0.2 cm guadalupe softtissue fragment which is frozen for immunofluorecent studies.MAX Vaughan (ASCP)PerformedThe interpretation of this case included the use of immunohistochemistry or special stains.Control Slides Examined: In-house known positive controls were evaluated along with the test tissue. These control slides run alongside of the patients sample show appropriate staining. Internal positive and negative controls when available are evaluated Immunohistochemistry technical testing was performed at [facility], Pathology Laboratory where it was developed and its performance characteristics were determined. It has not been cleared or approved by the U.S. Food and Drug Administration. The FDA has determined that such clearance or approval is not necessary. The test is used for clinical p urposes. It should not be regarded as investigational or for research. This laboratory is certified under the Clinical Laboratory Improvement Amendments of 1988 (CLIA-88) as qualified to perform high complexity clinical laboratory testing.[facility], Department of Pathology, [address] [place] [address], [facility] [place], [facility] of Pathology, [address] [place] [address], [facility]gitgwWest[facility] [place], Department of Pathology, [address] [place] [address], IZGXJSOURD [id number] 10:37:45 Test Item Value Reference Range Interpretation Comments TACROLIMUS BLOOD 12.6 ng/mL 10.0-20.0 Test perfor med on [employer] (simpleFLOORS) (test code Architec t Immunoassay = 657) system with Chemiluminescen t Microparticle Immunoassay (CM IA) technology. Hand Slitter ID - ADMINXR CHEST 1 VIEW PORTABLE / [id number] 07:36:51 [facility] 1980 Sex: MXR CHEST 1 VIEW PORTABLE / BEDSIDEINDICATION: s/p OHTlung evalCOMPARISON: Prior day's examTECHNIQUE: Portable frontal view(s) of the chest. FINDINGS: Support Lines and Devices: Stable. Lungs and pleura: Unchanged airspace and pleural opacities. Nopneumothorax identified.Heart and mediastinum: Stable contours. Stable surgical changes.Additional findings: Soft tissue emphysema in the left chest wall.IMPRESSION:1. No significant change from prior exam.2. Soft tissue emphysema in the left chest wall.Electronically Signed By: Timur Vazquez07/25/2022 07:39 CDTWorkstation Name: [id number] METABOLIC PANEL 2022-07-25 06:43:50 Test Item Value Reference Range Interpretation Comments SODIUM (BEAKER) 138 meq/L 136-145 (test code = 381) POTASSIUM 4.6 meq/L 3.5-5.1 Specimen slight ly (BEAKER) (test hemolyzed code = 379) CHLORIDE (BEAKER) 109 meq/L 98-107 H (test code = 382) CO2 (BEAKER) 18 meq/L 22-29 L (test code = 355) BLOOD UREA 22 mg/dL 7-21 H NITROGEN (BEAKER) (test code = 354) CREATININE 0.93 mg/dL 0.57-1.25 Specimen slight ly (BEAKER) (test hemolyzed code = 358) GLUCOSE RANDOM 132 mg/dL 70-105 H (BEAKER) (test code = 652) CALCIUM (BEAKER) 8.9 mg/dL 8.4-10.2 (test code = 697) EGFR (BEAKER) 106 Interpretatio n of eGFR (test code = [...] not appl icable for dialysis patien ts Hand Slitter ID - [id number] 06:43:49 Test Item Value Reference Range Interpretation Comments MAGNESIUM (BEAKER) 2.2 mg/dL 1.6-2.6 Specimen slightly (test code = 627) hemolyzed Hand Slitter ID - [id number] 06:43:49 Test Item Value Reference Range Interpretation Comments PHOSPHORUS (BEAKER) 3.9 mg/dL 2.3-4.7 Specimen slightly (test code = 604) hemolyzed Hand Slitter ID - ADMINCBC W/PLT COUNT & AUTO [id number] 06:07:32 Test Item Value Reference Range Interpretation Comments WHITE BLOOD CELL COUNT (BEAKER) 7.8 K/ L 3.5-10.5 (test code = 775) RED BLOOD CELL COUNT (BEAKER) 3.45 M/ L 4.63-6.08 L (test code = 761) HEMOGLOBIN (BEAKER) (test code = 10.1 GM/DL 13.7-17.5 L 410) HEMATOCRIT (BEAKER) (test code = 31.4 % 40.1-51.0 L 411) MEAN CORPUSCULAR VOLUME (BEAKER) 91 fL 79-92 (test code = 753) MEAN CORPUSCULAR HEMOGLOBIN 29.3 pg 25.7-32.2 (BEAKER) (test code = 751) MEAN CORPUSCULAR HEMOGLOBIN CONC 32.2 GM/DL 32.3-36.5 L (BEAKER) (test code = 752) RED CELL DISTRIBUTION WIDTH 15.6 % 11.6-14.4 H (BEAKER) (test code = 412) PLATELET COUNT (BEAKER) (test 353 K/CU MM 150-450 code = 756) MEAN PLATELET VOLUME (BEAKER) 8.2 fL 9.4-12.4 L (test code = 754) NUCLEATED RED BLOOD CELLS 0 /100 WBC 0-0 (BEAKER) (test code = 413) NEUTROPHILS RELATIVE PERCENT 82 % (BEAKER) (test code = 429) LYMPHOCYTES RELATIVE PERCENT 11 % (BEAKER) (test code = 430) MONOCYTES RELATIVE PERCENT 2 % (BEAKER) (test code = 431) EOSINOPHILS RELATIVE PERCENT 4 % (BEAKER) (test code = 432) BASOPHILS RELATIVE PERCENT 1 % (BEAKER) (test code = 437) NEUTROPHILS ABSOLUTE COUNT 6.37 K/ L 1.78-5.38 H (BEAKER) (test code = 670) LYMPHOCYTES ABSOLUTE COUNT 0.83 K/ L 1.32-3.57 L (BEAKER) (test code = 414) MONOCYTES ABSOLUTE COUNT (BEAKER) 0.19 K/ L 0.30-0.82 L (test code = 415) EOSINOPHILS ABSOLUTE COUNT 0.31 K/ L 0.04-0.54 (BEAKER) (test code = 416) BASOPHILS ABSOLUTE COUNT (BEAKER) 0.06 K/ L 0.01-0.08 (test code = 417) IMMATURE GRANULOCYTES-RELATIVE 0.50 % 0.00-1.00 PERCENT (BEAKER) (test code = 2801) CALCIUM, [id number] 05:29:32 Test Item Value Reference Range Interpretation Comments CALCIUM IONIZED (BEAKER) (test 1.16 mmol/L 1.12-1.27 code = 698) PH, BLOOD (BEAKER) (test code = 7.35 1810) OXYGEN SATURATION, [id number] 05:29:15 Test Item Value Reference Range Interpretation Comments O2 SATURATION (MEASURED) (BEAKER) 77.4 % (test code = 1455) NM LUNG SCAN (V/Q)2022-07-24 13:07:01 [facility] 1980 Sex: MPROCEDURE: LUNG SCAN - perfusion onlyCPT CODE: [id number]: Chest pain.TECHNIQUE: 5.4 mCi of Tc-99m MAA was injected intravenously, and staticperfusion images were obtained in multiple projections. In addition,SPECT-CT images were obtained. Ventilation imaging was not performed dueto COVID precautions.Correlation: Chest x-ray July 24, 2022.FINDINGS:There is no significant moderate or large size segment al/subsegmentalperfusion defect identified.IMPRESSION:No suspicious findings to suggest an acute pulmonary embolism.Electronically Signed By: Henry Roen07/24/2022 13:09 CDTWorkstation Name: [id number] 10:15:25 Test Item Value Reference Range Interpretation Comments TACROLIMUS BLOOD 8.6 ng/mL 10.0-20.0 L Test perfor med on Nelson (BEAKER) (test code Architec t Immunoassay = 657) system with Chemiluminescen t Microparticle I mmunoassay (CMIA) deepak meli. Hand Slitter ID - [id number] 09:30:35 Test Item Value Reference Range Interpretation Comments PHOSPHORUS (BEAKER) 4.4 mg/dL 2.3-4.7 Specimen slightly (test code = 604) hemolyzed Hand Slitter ID - EDBASIC METABOLIC [id number] 09:30:35 Test Item Value Reference Range Interpretation Comments SODIUM (BEAKER) 137 meq/L 136-145 (test code = 381) POTASSIUM 4.4 meq/L 3.5-5.1 Specimen slight ly (BEAKER) (test hemolyzed code = 379) CHLORIDE (BEAKER) 103 meq/L 98-107 (test code = 382) CO2 (BEAKER) 23 meq/L 22-29 (test code = 355) BLOOD UREA 26 mg/dL 7-21 H NITROGEN (BEAKER) (test code = 354) CREATININE 0.90 mg/dL 0.57-1.25 Specimen slight ly (BEAKER) (test hemolyzed code = 358) GLUCOSE RANDOM 100 mg/dL 70-105 (BEAKER) (test code = 652) CALCIUM (BEAKER) 9.5 mg/dL 8.4-10.2 (test code = 697) EGFR (BEAKER) 111 Interpretatio n of eGFR (test code = [...] not appl icable for dialysis patien ts Hand Slitter ID - [id number] 09:30:34 Test Item Value Reference Range Interpretation Comments MAGNESIUM (BEAKER) 1.5 mg/dL 1.6-2.6 L Specimen slightly (test code = 627) hemolyzed Hand Slitter ID - EDXR CHEST 1 VIEW PORTABLE / [id number] 06:46:51 [facility] : 1980 Sex: MXR CHEST 1 VIEW PORTABLE / BEDSIDEINDICATION: s/p OHTlung evalCOMPARISON: Prior day's examTECHNIQUE: Portable frontal view(s) of the chest. FINDINGS: Support Lines and Devices: Stable. Lungs and pleura: Scattered linear atelectasis/scarring is present. Nofocal consolidation. No pneumothorax identified.Heart and mediastinum: Stable contours. Stable surgical changes.Additional findings: Soft tissue emphysema in the lower chest dugan andabdominal dugan bilaterally.IMPRESSION:New soft tissue emphysema in thebilateral abdominal dugan.CBC W/PLT COUNT & AUTO [id number] 06:27:26 Test Item Value Reference Range Interpretation Comments WHITE BLOOD CELL COUNT (BEAKER) 7.9 K/ L 3.5-10.5 (test code = 775) RED BLOOD CELL COUNT (BEAKER) 3.57 M/ L 4.63-6.08 L (test code = 761) HEMOGLOBIN (BEAKER) (test code = 10.4 GM/DL 13.7-17.5 L 410) HEMATOCRIT (BEAKER) (test code = 32.8 % 40.1-51.0 L 411) MEAN CORPUSCULAR VOLUME (BEAKER) 92 fL 79-92 (test code = 753) MEAN CORPUSCULAR HEMOGLOBIN 29.1 pg 25.7-32.2 (BEAKER) (test code = 751) MEAN CORPUSCULAR HEMOGLOBIN CONC 31.7 GM/DL 32.3-36.5 L (BEAKER) (test code = 752) RED CELL DISTRIBUTION WIDTH 15.7 % 11.6-14.4 H (BEAKER) (test code = 412) PLATELET COUNT (BEAKER) (test 351 K/CU MM 150-450 code = 756) MEAN PLATELET VOLUME (BEAKER) 7.9 fL 9.4-12.4 L (test code = 754) NUCLEATED RED BLOOD CELLS 0 /100 WBC 0-0 (BEAKER) (test code = 413) NEUTROPHILS RELATIVE PERCENT 77 % (BEAKER) (test code = 429) LYMPHOCYTES RELATIVE PERCENT 13 % (BEAKER) (test code = 430) MONOCYTES RELATIVE PERCENT 3 % (BEAKER) (test code = 431) EOSINOPHILS RELATIVE PERCENT 6 % (BEAKER) (test code = 432) BASOPHILS RELATIVE PERCENT 1 % (BEAKER) (test code = 437) NEUTROPHILS ABSOLUTE COUNT 6.10 K/ L 1.78-5.38 H (BEAKER) (test code = 670) LYMPHOCYTES ABSOLUTE COUNT 0.99 K/ L 1.32-3.57 L (BEAKER) (test code = 414) MONOCYTES ABSOLUTE COUNT (BEAKER) 0.24 K/ L 0.30-0.82 L (test code = 415) EOSINOPHILS ABSOLUTE COUNT 0.47 K/ L 0.04-0.54 (BEAKER) (test code = 416) BASOPHILS ABSOLUTE COUNT (BEAKER) 0.06 K/ L 0.01-0.08 (test code = 417) IMMATURE GRANULOCYTES-RELATIVE 0.60 % 0.00-1.00 PERCENT (BEAKER) (test code = 2801) CALCIUM, [id number] 06:05:49 Test Item Value Reference Range Interpretation Comments CALCIUM IONIZED (BEAKER) (test 1.17 mmol/L 1.12-1.27 code = 698) PH, BLOOD (BEAKER) (test code = 7.37 1810) OXYGEN SATURATION, [id number] 06:05:13 Test Item Value Reference Range Interpretation Comments O2 SATURATION (MEASURED) (BEAKER) 79.2 % (test code = 1455) XR CHEST 1 VIEW PORTABLE / [id number] 12:33:[address] [facility] : 1980 Sex: MXR CHEST 1 VIEW PORTABLE / BEDSIDEINDICATION: s/p OHTlung evalCOMPARISON: Prior day's examTECHNIQUE: Portable frontal view(s) of the chest. FINDINGS: Support Lines and Devices: Stable. Lungs and pleura: Unchanged airspace and pleural opacities. Nopneumothorax identified.Heart and mediastinum: Stable contours. Stable surgical changes.Additional findings: Subcutaneous emphysema in the left lowerchest/upper abdominal wallIMPRESSION:1. No significant change from prior exam.2. Linear atelectasis in the left lower lung.3. Subcutaneous emphysema in the left lower chest/upper abdominal wallTACROLIMUS [id number] 10:22:17 Test Item Value Reference Range Interpretation Comments TACROLIMUS BLOOD 13.6 ng/mL 10.0-20.0 Test perfor med on [employer] (BEAKER) (test code Architec t Immunoassay = 657) system with Chemiluminescen t Microparticle Immunoassay (CM IA) technology. Hand Slitter ID - ADMINBASI METABOLIC [id number] 08:06:04 Test Item Value Reference Range Interpretation Comments SODIUM (BEAKER) 138 meq/L 136-145 (test code = 381) POTASSIUM 4.8 meq/L 3.5-5.1 Specimen slight ly (BEAKER) (test hemolyzed code = 379) CHLORIDE (BEAKER) 105 meq/L 98-107 (test code = 382) CO2 (BEAKER) 24 meq/L 22-29 (test code = 355) BLOOD UREA 27 mg/dL 7-21 H NITROGEN (BEAKER) (test code = 354) CREATININE 1.06 mg/dL 0.57-1.25 Specimen slight ly (BEAKER) (test hemolyzed code = 358) GLUCOSE RANDOM 99 mg/dL 70-105 (BEAKER) (test code = 652) CALCIUM (BEAKER) 9.1 mg/dL 8.4-10.2 (test code = 697) EGFR (BEAKER) 91 Interpretatio n of eGFR (test code = [...] not appl icable for dialysis patien ts Hand Slitter ID - CJ [id number] 08:06:03 Test Item Value Reference Range Interpretation Comments MAGNESIUM (BEAKER) 1.8 mg/dL 1.6-2.6 Specimen slightly (test code = 627) hemolyzed Hand Slitter ID Michelle CORONA [id number] 08:06:03 Test Item Value Reference Range Interpretation Comments PHOSPHORUS (BEAKER) 4.0 mg/dL 2.3-4.7 Specimen slightly (test code = 604) hemolyzed Hand Slitter ID - CJ WB-TYPE NATRIURETIC FACTOR (BNP)2022-07-23 05:56:56 Test Item Value Reference Range Interpretation Comments B-TYPE NATRIURETIC PEPTIDE (BEAKER) 181 pg/mL 0-100 H (test code = 700) Hand Slitter ID - ADMINOXYGEN SATURATION, [id number] 05:44:57 Test Item Value Reference Range Interpretation Comments O2 SATURATION (MEASURED) (BEAKER) 82.4 % (test code = 1455) CALCIUM, [id number] 05:42:11 Test Item Value Reference Range Interpretation Comments CALCIUM IONIZED (BEAKER) (test 1.19 mmol/L 1.12-1.27 code = 698) PH, BLOOD (BEAKER) (test code = 7.38 5510) CBC W/PLT COUNT & AUTO [id number] 05:26:29 Test Item Value Reference Range Interpretation Comments WHITE BLOOD CELL COUNT (BEAKER) 9.4 K/ L 3.5-10.5 (test code = 775) RED BLOOD CELL COUNT (BEAKER) 3.26 M/ L 4.63-6.08 L (test code = 761) HEMOGLOBIN (BEAKER) (test code = 9.6 GM/DL 13.7-17.5 L 410) HEMATOCRIT (BEAKER) (test code = 30.2 % 40.1-51.0 L 411) MEAN CORPUSCULAR VOLUME (BEAKER) 93 fL 79-92 H (test code = 753) MEAN CORPUSCULAR HEMOGLOBIN 29.4 pg 25.7-32.2 (BEAKER) (test code = 751) MEAN CORPUSCULAR HEMOGLOBIN CONC 31.8 GM/DL 32.3-36.5 L (BEAKER) (test code = 752) RED CELL DISTRIBUTION WIDTH 15.7 % 11.6-14.4 H (BEAKER) (test code = 412) PLATELET COUNT (BEAKER) (test 361 K/CU MM 150-450 code = 756) MEAN PLATELET VOLUME (BEAKER) 8.2 fL 9.4-12.4 L (test code = 754) NUCLEATED RED BLOOD CELLS 0 /100 WBC 0-0 (BEAKER) (test code = 413) NEUTROPHILS RELATIVE PERCENT 80 % (BEAKER) (test code = 429) LYMPHOCYTES RELATIVE PERCENT 11 % (BEAKER) (test code = 430) MONOCYTES RELATIVE PERCENT 4 % (BEAKER) (test code = 431) EOSINOPHILS RELATIVE PERCENT 4 % (BEAKER) (test code = 432) BASOPHILS RELATIVE PERCENT 1 % (BEAKER) (test code = 437) NEUTROPHILS ABSOLUTE COUNT 7.51 K/ L 1.78-5.38 H (BEAKER) (test code = 670) LYMPHOCYTES ABSOLUTE COUNT 0.99 K/ L 1.32-3.57 L (BEAKER) (test code = 414) MONOCYTES ABSOLUTE COUNT (BEAKER) 0.33 K/ L 0.30-0.82 (test code = 415) EOSINOPHILS ABSOLUTE COUNT 0.39 K/ L 0.04-0.54 (BEAKER) (test code = 416) BASOPHILS ABSOLUTE COUNT (BEAKER) 0.08 K/ L 0.01-0.08 (test code = 417) IMMATURE GRANULOCYTES-RELATIVE 1.00 % 0.00-1.00 PERCENT (BEAKER) (test code = 2801) POCT-GLUCOSE [id number] 17:20:32 Test Item Value Reference Range Interpretation Comments POC-GLUCOSE METER 127 mg/dL 70-110 H : TESTED A T [facility] 6720 (BEAKER) (test code = FILEMON Fuentes [facility], 1538) [address]: Hand Slitter/Techni macrina ID = [id number] for Thelma Brasher POCT-GLUCOSE [id number] 13:24:32 Test Item Value Reference Range Interpretation Comments POC-GLUCOSE METER 102 mg/dL 70-110 : TESTED A T [facility] 6720 (BEAKER) (test code = FILEMON Fuentes [facility], 1538) [address]: Hand Slitter/Techni macrina ID = [id number] for Thelma Brasher BASIC METABOLIC [id number] 11:02:12 Test Item Value Reference Range Interpretation Comments SODIUM (BEAKER) 137 meq/L 136-145 (test code = 381) POTASSIUM 5.0 meq/L 3.5-5.1 Specimen slight ly (BEAKER) (test hemolyzed code = 379) CHLORIDE (BEAKER) 105 meq/L 98-107 (test code = 382) CO2 (BEAKER) 25 meq/L 22-29 (test code = 355) BLOOD UREA 20 mg/dL 7-21 NITROGEN (BEAKER) (test code = 354) CREATININE 0.88 mg/dL 0.57-1.25 Specimen slight ly (BEAKER) (test hemolyzed code = 358) GLUCOSE RANDOM 100 mg/dL 70-105 (BEAKER) (test code = 652) CALCIUM (BEAKER) 8.8 mg/dL 8.4-10.2 (test code = 697) EGFR (BEAKER) 111 Interpretati on of eGFR (test code = mL/min/1.73 values [...] not appl icable for dialysis patien ts [id number] 11:02:11 Test Item Value Reference Range Interpretation Comments PHOSPHORUS (BEAKER) (test code = 3.9 mg/dL 2.3-4.7 604) [id number] 11:02:10 Test Item Value Reference Range Interpretation Comments MAGNESIUM (BEAKER) (test code = 1.7 mg/dL 1.6-2.6 627) TACROLIMUS [id number] 09:50:58 Test Item Value Reference Range Interpretation Comments TACROLIMUS BLOOD 7.4 ng/mL 10.0-20.0 L Test perfor med on Nelson (MIA) (test code Architec t Immunoassay = 657) system with Chemiluminescen t Microparticle I mmunoassay (CMIA) technolo gy. Hand Slitter ID - ADMINPOCT-GLUCOSE [id number] 08:41:22 Test Item Value Reference Range Interpretation Comments POC-GLUCOSE METER 102 mg/dL 70-110 : TESTED A T [facility] 6720 (MIA) (test code = [place], 1538) [address]: Hand Slitter/Techni macrina ID = [id number] for Thelma Brasher XR CHEST 1 VIEW PORTABLE / [id number] 08:33:32 [facility] [place] : 1980 Sex: MXR CHEST 1 VIEW PORTABLE / BEDSIDEINDICATION: s/p OHTlung evalCOMPARISON: Prior day's examTECHNIQUE: Portable frontal view(s) of the chest. FINDINGS: Support Lines and Devices: Stable. Lungs and pleura: Unchanged airspace and pleural opacities. Nopneumothorax identified.Heart and mediastinum: Stable contours. Stable surgical changes.Additional findings: Postoperative changes from orthotopic hearttransplant. Subcutaneous emphysema seen in the left chest wall.IMPRESSION:1. No significant change from prior exam.2. No focal consolidation.3. Linear atelectasis/scarring the left lower lung.CBC W/PLT COUNT & AUTO [id number] 06:36:49 Test Item Value Reference Range Interpretation Comments WHITE BLOOD CELL COUNT (BEAKER) 10.7 K/ L 3.5-10.5 H (test code = 775) RED BLOOD CELL COUNT (BEAKER) 3.52 M/ L 4.63-6.08 L (test code = 761) HEMOGLOBIN (BEAKER) (test code = 10.3 GM/DL 13.7-17.5 L 410) HEMATOCRIT (BEAKER) (test code = 32.2 % 40.1-51.0 L 411) MEAN CORPUSCULAR VOLUME (BEAKER) 92 fL 79-92 (test code = 753) MEAN CORPUSCULAR HEMOGLOBIN 29.3 pg 25.7-32.2 (BEAKER) (test code = 751) MEAN CORPUSCULAR HEMOGLOBIN CONC 32.0 GM/DL 32.3-36.5 L (BEAKER) (test code = 752) RED CELL DISTRIBUTION WIDTH 15.9 % 11.6-14.4 H (BEAKER) (test code = 412) PLATELET COUNT (BEAKER) (test 404 K/CU MM 150-450 code = 756) MEAN PLATELET VOLUME (BEAKER) 7.8 fL 9.4-12.4 L (test code = 754) NUCLEATED RED BLOOD CELLS 0 /100 WBC 0-0 (BEAKER) (test code = 413) NEUTROPHILS RELATIVE PERCENT 80 % (BEAKER) (test code = 429) LYMPHOCYTES RELATIVE PERCENT 11 % (BEAKER) (test code = 430) MONOCYTES RELATIVE PERCENT 4 % (BEAKER) (test code = 431) EOSINOPHILS RELATIVE PERCENT 4 % (BEAKER) (test code = 432) BASOPHILS RELATIVE PERCENT 1 % (BEAKER) (test code = 437) NEUTROPHILS ABSOLUTE COUNT 8.51 K/ L 1.78-5.38 H (BEAKER) (test code = 670) LYMPHOCYTES ABSOLUTE COUNT 1.13 K/ L 1.32-3.57 L (BEAKER) (test code = 414) MONOCYTES ABSOLUTE COUNT (BEAKER) 0.37 K/ L 0.30-0.82 (test code = 415) EOSINOPHILS ABSOLUTE COUNT 0.45 K/ L 0.04-0.54 (BEAKER) (test code = 416) BASOPHILS ABSOLUTE COUNT (BEAKER) 0.09 K/ L 0.01-0.08 H (test code = 417) IMMATURE GRANULOCYTES-RELATIVE 1.30 % 0.00-1.00 H PERCENT (BEAKER) (test code = 2801) CALCIUM, [id number] 06:06:47 Test Item Value Reference Range Interpretation Comments CALCIUM IONIZED (BEAKER) (test 1.15 mmol/L 1.12-1.27 code = 698) PH, BLOOD (BEAKER) (test code = 7.37 1810) OXYGEN SATURATION, [id number] 06:06:45 Test Item Value Reference Range Interpretation Comments O2 SATURATION (MEASURED) (AKER) 77.1 % (test code = 1455) POCT-GLUCOSE [id number] 21:45:19 Test Item Value Reference Range Interpretation Comments POC-GLUCOSE METER 117 mg/dL 70-110 H : TESTED A T [facility] 6720 (simpleFLOORS) (test code = [facility] [email or web address] [facility], 1538) [address]: Hand Slitter/Techni macrina ID = [id number] for Ti dwell, Zarina POCT-GLUCOSE [id number] 17:21:16 Test Item Value Reference Range Interpretation Comments POC-GLUCOSE METER 148 mg/dL 70-110 H : TESTED A T [facility] 6720 (simpleFLOORS) (test code = [facility] [email or web address] [facility], 1538) [address]: Hand Slitter/Techni amcrina ID = [id number] for Mu sic, Asima TACROLIMUS [id number] 13:40:09 Test Item Value Reference Range Interpretation Comments TACROLIMUS BLOOD 10.5 ng/mL 10.0-20.0 Test perfor med on Nelson (BEAKER) (test code Architec t Immunoassay = 657) system with Chemiluminescen t Microparticle Immunoassay (CM IA) technology. Hand Slitter ID - ADMINPOCT-GLUCOSE [id number] 11:42:18 Test Item Value Reference Range Interpretation Comments POC-GLUCOSE METER 113 mg/dL 70-110 H : TESTED A T [facility] 6720 (simpleFLOORS) (test code = FILEMON Fuentes [facility], 1538) [address]: Hand Slitter/Techni macrina ID = [id number] for Moon Damon POCT-GLUCOSE [id number] 08:07:18 Test Item Value Reference Range Interpretation Comments POC-GLUCOSE METER 104 mg/dL 70-110 : [facility] (test code = FILEMON Fuentes [facility], 1538) [address]: Hand Slitter/Techni macrina ID = [id number] for Moon Damon XR CHEST 1 VIEW PORTABLE / [id number] 07:35:34 [facility] 1980 Sex: MXR CHEST 1 VIEW PORTABLE / BEDSIDEINDICATION: s/p OHTlung evalCOMPARISON: Prior day's examFINDINGS: Portable frontal view of the chest. IMPRESSION:Support Lines: PICC tip overlies the atriocaval junction. Lungs and pleura: Lungs are clear. No significant pneumothorax.Heart and mediastinum: Stable contours.Stable surgical changes.Additional findings: None.[id number] 07:22:59 Test Item Value Reference Range Interpretation Comments MAGNESIUM (BEAKER) (test code = 1.7 mg/dL 1.6-2.6 627) Hand Slitter ID - [id number] 07:22:59 Test Item Value Reference Range Interpretation Comments PHOSPHORUS (BEAKER) (test code = 3.3 mg/dL 2.3-4.7 604) Hand Slitter ID - MMBASIC METABOLIC [id number] 07:22:58 Test Item Value Reference Range Interpretation Comments SODIUM (BEAKER) 137 meq/L 136-145 (test code = 381) POTASSIUM 4.6 meq/L 3.5-5.1 (BEAKER) (test code = 379) CHLORIDE (BEAKER) 106 meq/L 98-107 (test code = 382) CO2 (BEAKER) 23 meq/L 22-29 (test code = 355) BLOOD UREA 23 mg/dL 7-21 H NITROGEN (BEAKER) (test code = 354) CREATININE 0.91 mg/dL 0.57-1.25 (BEAKER) (test code = 358) GLUCOSE RANDOM 94 mg/dL 70-105 (BEAKER) (test code = 652) CALCIUM (BEAKER) 9.0 mg/dL 8.4-10.2 (test code = 697) EGFR (BEAKER) 109 Interpretatio n of eGFR (test code = [...] not appl icable for dialysis patien ts Hand Slitter ID - MMCBC W/PLT COUNT & AUTO [id number] 07:04:47 Test Item Value Reference Range Interpretation Comments WHITE BLOOD CELL COUNT (BEAKER) 10.9 K/ L 3.5-10.5 H (test code = 775) RED BLOOD CELL COUNT (BEAKER) 3.14 M/ L 4.63-6.08 L (test code = 761) HEMOGLOBIN (BEAKER) (test code = 9.1 GM/DL 13.7-17.5 L 410) HEMATOCRIT (BEAKER) (test code = 29.1 % 40.1-51.0 L 411) MEAN CORPUSCULAR VOLUME (BEAKER) 93 fL 79-92 H (test code = 753) MEAN CORPUSCULAR HEMOGLOBIN 29.0 pg 25.7-32.2 (BEAKER) (test code = 751) MEAN CORPUSCULAR HEMOGLOBIN CONC 31.3 GM/DL 32.3-36.5 L (BEAKER) (test code = 752) RED CELL DISTRIBUTION WIDTH 16.0 % 11.6-14.4 H (BEAKER) (test code = 412) PLATELET COUNT (BEAKER) (test 373 K/CU MM 150-450 code = 756) MEAN PLATELET VOLUME (BEAKER) 8.1 fL 9.4-12.4 L (test code = 754) NUCLEATED RED BLOOD CELLS 0 /100 WBC 0-0 (BEAKER) (test code = 413) NEUTROPHILS RELATIVE PERCENT 80 % (BEAKER) (test code = 429) LYMPHOCYTES RELATIVE PERCENT 10 % (BEAKER) (test code = 430) MONOCYTES RELATIVE PERCENT 4 % (BEAKER) (test code = 431) EOSINOPHILS RELATIVE PERCENT 4 % (BEAKER) (test code = 432) BASOPHILS RELATIVE PERCENT 1 % (BEAKER) (test code = 437) NEUTROPHILS ABSOLUTE COUNT 8.74 K/ L 1.78-5.38 H (BEAKER) (test code = 670) LYMPHOCYTES ABSOLUTE COUNT 1.08 K/ L 1.32-3.57 L (BEAKER) (test code = 414) MONOCYTES ABSOLUTE COUNT (BEAKER) 0.39 K/ L 0.30-0.82 (test code = 415) EOSINOPHILS ABSOLUTE COUNT 0.43 K/ L 0.04-0.54 (BEAKER) (test code = 416) BASOPHILS ABSOLUTE COUNT (BEAKER) 0.07 K/ L 0.01-0.08 (test code = 417) IMMATURE GRANULOCYTES-RELATIVE 1.50 % 0.00-1.00 H PERCENT (BEAKER) (test code = 2801) OXYGEN SATURATION, [id number] 06:56:55 Test Item Value Reference Range Interpretation Comments O2 SATURATION (MEASURED) (BEAKER) 78.8 % (test code = 1455) CALCIUM, [id number] 06:56:31 Test Item Value Reference Range Interpretation Comments CALCIUM IONIZED (BEAKER) (test 1.19 mmol/L 1.12-1.27 code = 698) PH, BLOOD (BEAKER) (test code = 7.36 1810) POCT-GLUCOSE [id number] 00:09:55 Test Item Value Reference Range Interpretation Comments POC-GLUCOSE METER 101 mg/dL 70-110 : TESTED A T [facility] 6720 (BEAKER) (test code = [facility], 1538) [id number]: Hand Slitter/Techni macrina ID = [id number] for RAMY COVARRUBIAS POCT-GLUCOSE [id number] 17:15:44 Test Item Value Reference Range Interpretation Comments POC-GLUCOSE METER 131 mg/dL 70-110 H : [facility] (test code = [facility], 1538) 23423: Hand Slitter/Techni macrina ID = [id number] for STEPHEN VILLEGAS POCT-GLUCOSE [id number] 12:22:51 Test Item Value Reference Range Interpretation Comments POC-GLUCOSE METER 117 mg/dL 70-110 H : TESTED A T [facility] 6720 ([facility]) (test code = [facility], 1538) 69808: Hand Slitter/Techni macrina ID = [id number] for Moon Damon TACROLIMUS [id number] 11:26:04 Test Item Value Reference Range Interpretation Comments TACROLIMUS BLOOD 9.8 ng/mL 10.0-20.0 L Test perfor med on Nelson ([facility]) (test code Architec t Immunoassay = 657) system with Chemiluminescen t Microparticle I mmunoassay (CMIA) technana laura [facility]. Hand Slitter ID - MMXR CHEST 1 VIEW PORTABLE / [id number] 08:51:53 [facility] : 1980 Sex: MXR CHEST 1 VIEW PORTABLE / BEDSIDEINDICATION: s/p OHTlung evalCOMPARISON: Prior day's examFINDINGS: Portable frontal view of the chest. IMPRESSION:Support Lines: PICC tip overlies the SVC. Left chest tube. Lungs and pleura: Lungs are clear. No significant pneumothorax.Heart and mediastinum: Stable contours. Stable surgical changes.Additional findings: None.POCT-GLUCOSE [id number] 08:27:33 Test Item Value Reference Range Interpretation Comments POC-GLUCOSE METER 103 mg/dL 70-110 : TESTED A T [facility] 6720 (BEAKER) (test code = [place], 1538) [id number]: Hand Slitter/Techni macrina ID = [id number] for TO STEPHEN BRAMBILA CALCIUM, [id number] 06:58:57 Test Item Value Reference Range Interpretation Comments CALCIUM IONIZED (BEAKER) (test 1.16 mmol/L 1.12-1.27 code = 698) PH, BLOOD (BEAKER) (test code = 7.35 1810) OXYGEN SATURATION, [id number] 06:58:33 Test Item Value Reference Range Interpretation Comments O2 SATURATION (MEASURED) (BEAKER) 79.2 % (test code = 1455) BASIC METABOLIC [id number] 06:41:19 Test Item Value Reference Range Interpretation Comments SODIUM (BEAKER) 134 meq/L 136-145 L (test code = 381) POTASSIUM 4.6 meq/L 3.5-5.1 Specimen slight ly (BEAKER) (test hemolyzed code = 379) CHLORIDE (BEAKER) 103 meq/L 98-107 (test code = 382) CO2 (BEAKER) 22 meq/L 22-29 (test code = 355) BLOOD UREA 20 mg/dL 7-21 NITROGEN (BEAKER) (test code = 354) CREATININE 0.84 mg/dL 0.57-1.25 Specimen slight ly (BEAKER) (test hemolyzed code = 358) GLUCOSE RANDOM 103 mg/dL 70-105 (BEAKER) (test code = 652) CALCIUM (BEAKER) 9.0 mg/dL 8.4-10.2 (test code = 697) EGFR (BEAKER) 113 Interpretatio n of eGFR (test code = [...] not appl icable for dialysis patien ts Hand Slitter ID - [id number] 06:41:18 Test Item Value Reference Range Interpretation Comments MAGNESIUM (BEAKER) 1.5 mg/dL 1.6-2.6 L Specimen slightly (test code = 627) hemolyzed Hand Slitter ID - [id number] 06:41:18 Test Item Value Reference Range Interpretation Comments PHOSPHORUS (BEAKER) 3.4 mg/dL 2.3-4.7 Specimen slightly (test code = 604) hemolyzed Hand Slitter ID - ADMINCBC W/PLT COUNT & AUTO [id number] 06:11:36 Test Item Value Reference Range Interpretation Comments WHITE BLOOD CELL COUNT (BEAKER) 12.9 K/ L 3.5-10.5 H (test code = 775) RED BLOOD CELL COUNT (BEAKER) 3.24 M/ L 4.63-6.08 L (test code = 761) HEMOGLOBIN (BEAKER) (test code = 9.9 GM/DL 13.7-17.5 L 410) HEMATOCRIT (BEAKER) (test code = 29.5 % 40.1-51.0 L 411) MEAN CORPUSCULAR VOLUME (BEAKER) 91 fL 79-92 (test code = 753) MEAN CORPUSCULAR HEMOGLOBIN 30.6 pg 25.7-32.2 (BEAKER) (test code = 751) MEAN CORPUSCULAR HEMOGLOBIN CONC 33.6 GM/DL 32.3-36.5 (BEAKER) (test code = 752) RED CELL DISTRIBUTION WIDTH 15.9 % 11.6-14.4 H (BEAKER) (test code = 412) PLATELET COUNT (BEAKER) (test 378 K/CU MM 150-450 code = 756) MEAN PLATELET VOLUME (BEAKER) 8.0 fL 9.4-12.4 L (test code = 754) NUCLEATED RED BLOOD CELLS 0 /100 WBC 0-0 (BEAKER) (test code = 413) NEUTROPHILS RELATIVE PERCENT 82 % (BEAKER) (test code = 429) LYMPHOCYTES RELATIVE PERCENT 10 % (BEAKER) (test code = 430) MONOCYTES RELATIVE PERCENT 4 % (BEAKER) (test code = 431) EOSINOPHILS RELATIVE PERCENT 3 % (BEAKER) (test code = 432) BASOPHILS RELATIVE PERCENT 1 % (BEAKER) (test code = 437) NEUTROPHILS ABSOLUTE COUNT 10.54 K/ L 1.78-5.38 H (BEAKER) (test code = 670) LYMPHOCYTES ABSOLUTE COUNT 1.27 K/ L 1.32-3.57 L (BEAKER) (test code = 414) MONOCYTES ABSOLUTE COUNT (BEAKER) 0.46 K/ L 0.30-0.82 (test code = 415) EOSINOPHILS ABSOLUTE COUNT 0.41 K/ L 0.04-0.54 (BEAKER) (test code = 416) BASOPHILS ABSOLUTE COUNT (BEAKER) 0.07 K/ L 0.01-0.08 (test code = 417) IMMATURE GRANULOCYTES-RELATIVE 1.20 % 0.00-1.00 H PERCENT (BEAKER) (test code = 2801) POCT-GLUCOSE [id number] 21:08:13 Test Item Value Reference Range Interpretation Comments POC-GLUCOSE METER 128 mg/dL 70-110 H : TESTED A T [facility] 6720 (BEAKER) (test code = [facility], 1538) [address]: Hand Slitter/Techni macrina ID = [id number] for Yousif Bowden ia POCT-GLUCOSE [id number] 16:36:28 Test Item Value Reference Range Interpretation Comments POC-GLUCOSE METER 132 mg/dL 70-110 H : TESTED A T [facility] 6720 (BEAKER) (test code = [facility], 1538) 94269: Hand Slitter/Techni macrina ID = [id number] for STEPHEN VILLEGAS TACROLIMUS [id number] 11:57:40 Test Item Value Reference Range Interpretation Comments TACROLIMUS BLOOD 12.8 ng/mL 10.0-20.0 Test perfor med on Nelson (BEAKER) (test code Architec t Immunoassay = 657) system with Chemiluminescen t Microparticle Immunoassay (CM IA) technology. Hand Slitter ID - ADMINPOCT-GLUCOSE [id number] 11:41:28 Test Item Value Reference Range Interpretation Comments POC-GLUCOSE METER 124 mg/dL 70-110 H : TESTED A T [facility] 6720 (BEAKER) (test code = [place], 1538) 510[address]: Hand Slitter/Techni macrina ID = [id number] for TO STEPHEN BRAMBILA POCT-GLUCOSE [id number] 08:17:12 Test Item Value Reference Range Interpretation Comments POC-GLUCOSE METER 108 mg/dL 70-110 : [facility] (test code = [place], 1538) [address]: Hand Slitter/Techni macrina ID = [id number] for TO STEPHEN BRAMBILA XR CHEST 1 VIEW PORTABLE / [id number] 06:58:41 [facility] : 1980 Sex: MXR CHEST 1 VIEW PORTABLE / BEDSIDEINDICATION: s/p OHTlung evalCOMPARISON: Prior day's examFINDINGS: Portable frontal view of the chest. IMPRESSION:Support Lines: PICC tip overlies the SVC. Left chest tube. Lungs and pleura: Lungs are clear. No significant pneumothorax.Heart and mediastinum: Stable contours. Stable surgical changes.Additional findings: None.[id number] 06:38:06 Test Item Value Reference Range Interpretation Comments PHOSPHORUS (BEAKER) 4.0 mg/dL 2.3-4.7 Specimen slightly (test code = 604) hemolyzed Hand Slitter ID - MMBASIC METABOLIC [id number] 06:38:06 Test Item Value Reference Range Interpretation Comments SODIUM (BEAKER) 136 meq/L 136-145 (test code = 381) POTASSIUM 4.6 meq/L 3.5-5.1 Specimen slight ly (BEAKER) (test hemolyzed code = 379) CHLORIDE (BEAKER) 105 meq/L 98-107 (test code = 382) CO2 (BEAKER) 22 meq/L 22-29 (test code = 355) BLOOD UREA 27 mg/dL 7-21 H NITROGEN (BEAKER) (test code = 354) CREATININE 0.92 mg/dL 0.57-1.25 Specimen slight ly (BEAKER) (test hemolyzed code = 358) GLUCOSE RANDOM 127 mg/dL 70-105 H (BEAKER) (test code = 652) CALCIUM (BEAKER) 9.1 mg/dL 8.4-10.2 (test code = 697) EGFR (BEAKER) 108 Interpretatio n of eGFR (test code = [...] not appl icable for dialysis patien ts Hand Slitter ID - [id number] 06:38:05 Test Item Value Reference Range Interpretation Comments MAGNESIUM (BEAKER) 1.5 mg/dL 1.6-2.6 L Specimen slightly (test code = 627) hemolyzed Hand Slitter ID - MMCBC W/PLT COUNT & AUTO [id number] 06:21:55 Test Item Value Reference Range Interpretation Comments WHITE BLOOD CELL COUNT (BEAKER) 12.8 K/ L 3.5-10.5 H (test code = 775) RED BLOOD CELL COUNT (BEAKER) 3.48 M/ L 4.63-6.08 L (test code = 761) HEMOGLOBIN (BEAKER) (test code = 10.1 GM/DL 13.7-17.5 L 410) HEMATOCRIT (BEAKER) (test code = 31.8 % 40.1-51.0 L 411) MEAN CORPUSCULAR VOLUME (BEAKER) 91 fL 79-92 (test code = 753) MEAN CORPUSCULAR HEMOGLOBIN 29.0 pg 25.7-32.2 (BEAKER) (test code = 751) MEAN CORPUSCULAR HEMOGLOBIN CONC 31.8 GM/DL 32.3-36.5 L (BEAKER) (test code = 752) RED CELL DISTRIBUTION WIDTH 16.1 % 11.6-14.4 H (BEAKER) (test code = 412) PLATELET COUNT (BEAKER) (test 416 K/CU MM 150-450 code = 756) MEAN PLATELET VOLUME (BEAKER) 8.0 fL 9.4-12.4 L (test code = 754) NUCLEATED RED BLOOD CELLS 0 /100 WBC 0-0 (BEAKER) (test code = 413) NEUTROPHILS RELATIVE PERCENT 81 % (BEAKER) (test code = 429) LYMPHOCYTES RELATIVE PERCENT 10 % (BEAKER) (test code = 430) MONOCYTES RELATIVE PERCENT 4 % (BEAKER) (test code = 431) EOSINOPHILS RELATIVE PERCENT 4 % (BEAKER) (test code = 432) BASOPHILS RELATIVE PERCENT 1 % (BEAKER) (test code = 437) NEUTROPHILS ABSOLUTE COUNT 10.30 K/ L 1.78-5.38 H (BEAKER) (test code = 670) LYMPHOCYTES ABSOLUTE COUNT 1.28 K/ L 1.32-3.57 L (BEAKER) (test code = 414) MONOCYTES ABSOLUTE COUNT (BEAKER) 0.50 K/ L 0.30-0.82 (test code = 415) EOSINOPHILS ABSOLUTE COUNT 0.45 K/ L 0.04-0.54 (BEAKER) (test code = 416) BASOPHILS ABSOLUTE COUNT (BEAKER) 0.08 K/ L 0.01-0.08 (test code = 417) IMMATURE GRANULOCYTES-RELATIVE 1.50 % 0.00-1.00 H PERCENT (BEAKER) (test code = 2801) CALCIUM, [id number] 06:03:29 Test Item Value Reference Range Interpretation Comments CALCIUM IONIZED (BEAKER) (test 1.19 mmol/L 1.12-1.27 code = 698) PH, BLOOD (BEAKER) (test code = 7.35 1810) OXYGEN SATURATION, [id number] 06:01:49 Test Item Value Reference Range Interpretation Comments O2 SATURATION (MEASURED) (BEAKER) 76.3 % (test code = 1455) POCT-GLUCOSE [id number] 22:18:54 Test Item Value Reference Range Interpretation Comments POC-GLUCOSE METER 104 mg/dL 70-110 : TESTED A T [facility] 6720 ([facility]) (test code = [facility], 1538) 72103: Hand Slitter/Techni macrina ID = [id number] for ABDI ADAMES POCT-GLUCOSE [id number] 16:55:06 Test Item Value Reference Range Interpretation Comments POC-GLUCOSE METER 122 mg/dL 70-110 H : TESTED A T [facility] 6720 ([facility]) (test code = [facility], 1538) 11788: Hand Slitter/Techni macrina ID = [id number] for JOSE MASTERSON, PATRICIA POCT-GLUCOSE [id number] 13:09:27 Test Item Value Reference Range Interpretation Comments POC-GLUCOSE METER 140 mg/dL 70-110 H : TESTED A T [facility] 6720 ([facility]) (test code = [facility], 1538) 68186: Hand Slitter/Techni macrina ID = [id number] for PATRICIA MITCHELL TACROLIMUS [id number] 11:08:45 Test Item Value Reference Range Interpretation Comments TACROLIMUS BLOOD 9.1 ng/mL 10.0-20.0 L Test perfor med on Nelson ([facility]) (test code Architec t Immunoassay = 657) system with Chemiluminescen t Microparticle I mmunoassay (CMIA) technolo gy. Hand Slitter ID - ADMINPOCT-GLUCOSE [id number] 08:56:34 Test Item Value Reference Range Interpretation Comments POC-GLUCOSE METER 99 mg/dL 70-110 : TESTED A T [facility] 6720 ([facility]) (test code = [facility], 1538) 05995: Hand Slitter/Techni macrina ID = [id number] for PATRICIA ADAMES XR CHEST 1 VIEW PORTABLE / [id number] 07:00:37 [facility] GARZAAVER[facility] GregorioBRIBOBBY BUTCHER : 1980 Sex: MXR CHEST 1 VIEW PORTABLE / BEDSIDEINDICATION: s/p OHTlung evalCOMPARISON: Prior day's examFINDINGS: Portable frontal view of the chest. IMPRESSION:Support Lines: PICC tip overlies the SVC. Left chest tube. Lungs and pleura: Lungs are clear. No significant pneumothorax.Heart and mediastinum: Stable contours. Stable surgical changes.Additional findings: None.[id number] 06:59:11 Test Item Value Reference Range Interpretation Comments PHOSPHORUS (BEAKER) (test code = 4.0 mg/dL 2.3-4.7 604) Hand Slitter ID - MMBASIC METABOLIC [id number] 06:59:10 Test Item Value Reference Range Interpretation Comments SODIUM (BEAKER) 137 meq/L 136-145 (test code = 381) POTASSIUM 4.8 meq/L 3.5-5.1 (BEAKER) (test code = 379) CHLORIDE (BEAKER) 105 meq/L 98-107 (test code = 382) CO2 (BEAKER) 22 meq/L 22-29 (test code = 355) BLOOD UREA 31 mg/dL 7-21 H NITROGEN (BEAKER) (test code = 354) CREATININE 0.95 mg/dL 0.57-1.25 (BEAKER) (test code = 358) GLUCOSE RANDOM 95 mg/dL 70-105 (BEAKER) (test code = 652) CALCIUM (BEAKER) 8.9 mg/dL 8.4-10.2 (test code = 697) EGFR (BEAKER) 104 Interpretatio n of eGFR (test code = [...] not appl icable for dialysis patien ts Hand Slitter ID - [id number] 06:59:10 Test Item Value Reference Range Interpretation Comments MAGNESIUM (BEAKER) (test code = 1.6 mg/dL 1.6-2.6 627) Hand Slitter ID - MMCBC W/PLT COUNT & AUTO [id number] 06:17:56 Test Item Value Reference Range Interpretation Comments WHITE BLOOD CELL COUNT (BEAKER) 14.2 K/ L 3.5-10.5 H (test code = 775) RED BLOOD CELL COUNT (BEAKER) 3.35 M/ L 4.63-6.08 L (test code = 761) HEMOGLOBIN (BEAKER) (test code = 9.5 GM/DL 13.7-17.5 L 410) HEMATOCRIT (BEAKER) (test code = 30.5 % 40.1-51.0 L 411) MEAN CORPUSCULAR VOLUME (BEAKER) 91 fL 79-92 (test code = 753) MEAN CORPUSCULAR HEMOGLOBIN 28.4 pg 25.7-32.2 (BEAKER) (test code = 751) MEAN CORPUSCULAR HEMOGLOBIN CONC 31.1 GM/DL 32.3-36.5 L (BEAKER) (test code = 752) RED CELL DISTRIBUTION WIDTH 16.1 % 11.6-14.4 H (BEAKER) (test code = 412) PLATELET COUNT (BEAKER) (test 416 K/CU MM 150-450 code = 756) MEAN PLATELET VOLUME (BEAKER) 8.0 fL 9.4-12.4 L (test code = 754) NUCLEATED RED BLOOD CELLS 0 /100 WBC 0-0 (BEAKER) (test code = 413) NEUTROPHILS RELATIVE PERCENT 81 % (BEAKER) (test code = 429) LYMPHOCYTES RELATIVE PERCENT 10 % (BEAKER) (test code = 430) MONOCYTES RELATIVE PERCENT 4 % (BEAKER) (test code = 431) EOSINOPHILS RELATIVE PERCENT 3 % (BEAKER) (test code = 432) BASOPHILS RELATIVE PERCENT 0 % (BEAKER) (test code = 437) NEUTROPHILS ABSOLUTE COUNT 11.59 K/ L 1.78-5.38 H (BEAKER) (test code = 670) LYMPHOCYTES ABSOLUTE COUNT 1.40 K/ L 1.32-3.57 (BEAKER) (test code = 414) MONOCYTES ABSOLUTE COUNT (BEAKER) 0.53 K/ L 0.30-0.82 (test code = 415) EOSINOPHILS ABSOLUTE COUNT 0.45 K/ L 0.04-0.54 (BEAKER) (test code = 416) BASOPHILS ABSOLUTE COUNT (BEAKER) 0.05 K/ L 0.01-0.08 (test code = 417) IMMATURE GRANULOCYTES-RELATIVE 1.50 % 0.00-1.00 H PERCENT (BEAKER) (test code = 2801) CALCIUM, [id number] 06:10:46 Test Item Value Reference Range Interpretation Comments CALCIUM IONIZED (BEAKER) (test 1.18 mmol/L 1.12-1.27 code = 698) PH, BLOOD (BEAKER) (test code = 7.40 1810) OXYGEN SATURATION, [id number] 06:10:22 Test Item Value Reference Range Interpretation Comments O2 SATURATION (MEASURED) (BEAKER) 96.0 % (test code = 1455) POCT-GLUCOSE [id number] 06:05:04 Test Item Value Reference Range Interpretation Comments POC-GLUCOSE METER 104 mg/dL 70-110 : TESTED A T [facility] 6720 (BEAKER) (test code = [facility], 153) 06894: Hand Slitter/Techni macrina ID = [id number] for DU NHAM, ABDI POCT-GLUCOSE [id number] 23:45:02 Test Item Value Reference Range Interpretation Comments POC-GLUCOSE METER 108 mg/dL 70-110 : TESTED A T [facility] 6720 (BEAKER) (test code = [facility] [email or web address] [facility], 1538) 88493: Hand Slitter/Techni macrina ID = [id number] for DU NHAM, ABDI POCT-GLUCOSE [id number] 17:19:39 Test Item Value Reference Range Interpretation Comments POC-GLUCOSE METER 132 mg/dL 70-110 H : TESTED A T [facility] 6720 (BEAKER) (test code = [facility], 1538) 14984: Hand Slitter/Techni macrina ID = [id number] for PATRICIA MITCHELL TISSUE [id number] 16:18:40Surgical Pathology Report Case: [id number] Authorizing Provider: Holly Almonte MD Collected: 07/16/2022 04:11 PM Ordering Location: [address] Received: 07/16/2022 09:26 PM Pathologist: Loni Cruz MD Specimen: Heart, Bx A. 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 One focus of cardiomyocyte damage associated with inflammation is seen. Findings are most compatible with ISHLT grade 1R acute cellular rejection. C4d is negative for capillary staining by immunofluorescence and the characteristic histopathologic features of antibody-mediated rejection are not identified (pAMR 0).The above findings were communicated to Dr. Holly Almonte via [employer] text message on 07/17/22 at 4:17 PM. [id number]/p OHT. A. HeartA. HeartReceived are 2 containers labeled with the patient's name, accession number and "heart".Received in saline is a guadalupe soft tissue fragment measuring 0.2cm in greatest dimension which is entirely frozen for C4D studies.Received in formalin are 4 guadalupe soft tissue fragments measuring up to 0.2 cm in greatest dimension, which are filtered and submitted in toto in A1. Microscopic examination is performed and the salient findings are incorporated into the final diagnosis and comment sections. The interpretation of this case included the use of immunohistochemistry, immunofluorescence or special stains. Indirect immunofluorescence (block A1):Indirect immunofluorescence for C4d shows focal nonspecific staining in the interstitium, but no staining of myocardial capillaries. External positive control tissue shows strongly positive C4d staining in capillaries. Control Slides Examined: In-house known positive controls were evaluated along with the test tissue. These control slides run alongside of the patients sample show appropriate staining. Internal positive and negative controls when available are evaluated Immunohistochemistry and/or immunofluorescence technical testing was performed at [facility], Pathology Laboratory where itwas developed and its performance characteristics were determined. It has not been cleared or approved by the U.S. Food and Drug Administration. The FDA has determined that such clearance or approval is not necessary. The test is used for clinical purposes. It should not be regarded as investigationalor for research. This laboratory is certified under the Clinical Laboratory Improvement Amendments of 1988 (CLIA-88) as qualified to perform high complexity clinical laboratory testing. [facility], Department of Pathology, [address] [place] [address], [facility] [place], [facility] of [facility], [address] [place] [address], [id number] [place], Department of [facility]ology, [address] [place] [address], AXSKBN [id number] 15:52:56Surgical Pathology Report Case: [id number] Authorizing Provider: Kalyan Rainey MD Collected: 0 07/04/2022 11:24 AM Ordering Location: [facility] Received: 07/04/2022 12:46 PM PERIOPERATIVE SERVICES Pathologist: Loni Cruz MD Specimen: Heart, Recipient [place] [facility] A. 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 The left anterior descending coronary artery shows intimal fibrocellular hyperplasia with lipid-laden macrophages and microscopic calcificationassociated with minimal (~10%) luminal stenosis, indicative of mild non-obstructive coronary artery disease. In the absence of significant coronary artery disease, the gross and histopathologic findings are consistent with nonischemic dilated cardiomyopathy. Dilated cardiomyopathy is the end point of various clinical conditions including prior myocarditis/inflammatory cardiac injury, genetic abnormalities, exposure to cardiotoxic drugs, reactional substances of abuse or toxins, chronic alcohol consumption, neurohormonal cardiac injury, and long- standing endocrine/metabolic diseases like diabetes mellitus, thyroid disease and obesity. Correlation with the patient's clinical, social and family history, and with results of genetic studies (if performed) is suggested. No intramural inflammatory infiltrate is seen to suggest active myocarditis, there is no granulomatous inflammation to suggest sarcoidosis, no homogenous extracellular deposits are seen to suggest amyloid disease, and cardiac myofiberdisarray is not noted. Mild fibrotic changes and focal microscopic calcification are noted in the mitral valve. The aorta shows focal intimal fibrocellular hyperplasia and lipid-laden macrophages, indicative of mild aortic atherosclerotic disease. There is no histopathologic evidence of aortic medial degeneration as elastin stain shows essentially preserved aortic medial elastic fibers. [id number] 41y/o man with history of seizure disorders, LV thrombus (an anticoagulation with warfarin) and end-stage non-ischemic cardiomyopathy. TTE on 05/20/22 showed severely enlarged LV chamber size, normal LV wall thickness, severe hypokinesis of all LV segments, and severely reduced LVEF <20%, among other findings. No LV mass/thrombus or significant valve disease was seen on pre-op TTE from 05/20/22. Patient now s/p OHT by Dr. Rainey on 07/04/22. A. HeartReceived fresh, labeled with patient's name, MRN and"heart" is a 361.6-gram explanted heart (weight post fixation) transected at the level of the atria.The heart measures 13.0 cm from superior to inferior, 11.5 cm from left to right, and 7.6 cm from anterior to posterior. The aorta and pulmonary trunk are transected just superior to the aortic and pulmonary valves, respectively. The epicardial surface is guadalupe-brown, smooth and unremarkable with a moderate amount of pericardial fat. The heart is serially sectioned from apex to base to a point about 2 cm below the atrioventricular valves to reveal enlarged right and left ventricular cavities. The cut surfaces of the myocardium are guadalupe-brown, homogenous, rubbery and unremarkable. The chordae tendineaeand papillary muscles are grossly unremarkable. All cardiac valves demonstrate the normal number of l eaflets and the mitral valve displays minimal to moderate calcifications. All other valves are unremarkable. The coronary arteries are all patent and unremarkable with a minimal amount of calcificationpresent within the LAD. The coronary circulation is right dominant. Wall thickness:Anterior LV: 1.0 c mLateral LV: 0.8 cmPosterior LV: 0.9 cmIVS: 0.8 cmRV: 0.5 cmValve Circumference:Tricuspid: 9.5 cmPulmonary: 7.3 cm Mitral: 10.5 cmAorta: 8.6 cmGross photographs are taken and fundraising sale representative sections are submitted. Section code:A1: LADA2: Left circumflex coronary arteryA3: Right coronary arteryA4: Left main coronary arteryA5: Posterior descending coronary arteryA6: Anterior LV wallA7: Lateral LV wallA8: Posterior LV wallA9: IVS A10: RV wallA11: Campus President sections of [id number]: Atrial [id number]: Mitral valve with calcifications(MC) Microscopic examination is performed and the salient findings are incorporated into the final diagnosis and comment sections. The interpretation of this case included the use of immunohistochemistry or special stains.Block A11: VVG elastin stainControl Slides Examined: In-house known positive controls were evaluated along with the test tissue. These control slides run alongside of the patients sample show appropriate staining. Internal positive and negative controls when available are evaluated Immunohistochemistry technical testing was performed at [facility], Pathology Laboratory where it was developed and its performance characteristics were determined. It has not been cleared or approved by the U.S. Food and Drug Administration. The FDA has determined that such clearance or approval is not necessary. The test is used for clinical purposes. It should not be regarded as investigational or for research. This laboratory is certified under the Clinical Laboratory Improvement Amendments of 1988 (CLIA-88) as qualified to perform high complexity clinical laboratory testing.[facility], Department of Pathology, [address] [place] [address], [facility] [place], Department of Pathology, [address] [place] [address], [facility] [place], Department of Pathology, [address] [place] [address], WVQR-GLUCOSE [id number] 12:39:56 Test Item Value Reference Range Interpretation Comments POC-GLUCOSE METER 114 mg/dL 70-110 H : TESTED A T [facility] 6720 (MIA) (test code = [place], 1538) [address]: Hand Slitter/Techni macrina ID = [id number] for PATRICIA MITCHELL MR UPPER EXTREMITY WITH & WITHOUT IV CONTRAST [id number] 12:14:[address] [facility] : 1980 Sex: MMRI left arm without and with contrastHISTORY: Pain from mid biceps region to mid forearmCOMPARISON: There are no previous studies available for comparison.TECHNIQUE: Multi planar and multisequence MRI images of the left armfrom the level of the mid upper arm to the mid forearm were obtainedwithout and subsequently following the administration of intravenousgadolinium contrast.FINDINGS:An intramuscular heterogeneously T1 hyperintense, heterogeneously [id number], nonenhancing lesion is visualized within the anterioraspect of the biceps brachia muscle. The superior extent of the lesionis incompletely imaged. However, this measures at least 14 cm incraniocaudal dimension, 5.2 cm in transverse dimension, and 2.1 cm inanteroposterior dimension. There is no significant surroundinginflammatory change.Expected signal intensity is otherwise maintained within the visualizedmusculature.No fracture is visualized. There is no significant bone edema. Nosuspicious osseous lesions are identified.No elbow joint effusion is identified. There is no significant elbowarthropathy.No significant tendon tear or tendinopathy is visualized.IMPRESSION:Heterogeneously T1 hyperintense nonenhancing intramuscular lesion withinthe biceps brachii measures at least 14 x 5.2 x 2.1 cm. This most likelyrepresents an intramuscularhematoma, although abscess would bedifficult to entirely exclude. Clinical follow-up is recommended toensure resolution of this finding. Follow-up imaging may be obtained ifclinically indicated.TACROLIMUS [id number] 08:51:31 Test Item Value Reference Range Interpretation Comments TACROLIMUS BLOOD 9.5 ng/mL 10.0-20.0 L Test perfor med on Nelson (MIA) (test code Architec t Immunoassay = 657) system with Chemiluminescen t Microparticle I mmunoassay (CMIA) technolo gy. Hand Slitter ID - ADMINPOCT-GLUCOSE [id number] 08:37:53 Test Item Value Reference Range Interpretation Comments POC-GLUCOSE METER 117 mg/dL 70-110 H : TESTED A T [facility] 6720 (simpleFLOORS) (test code = [place], 1538) [address]: Hand Slitter/Techni macrina ID = [id number] for BA LDWIN, PATRICIA XR CHEST 1 VIEW PORTABLE / [id number] 07:00:04 [facility] 1980 Sex: MXR CHEST 1 VIEW PORTABLE / BEDSIDEINDICATION: s/p OHTlung evalCOMPARISON: Prior day's examFINDINGS: Portable frontal view of the chest. IMPRESSION:Support Lines: PICC tip overlies the SVC. Left chest tube. Lungs and pleura: Lungs are clear. No significant pneumothorax.Heart and mediastinum: Stable contours. Stable surgical changes.Additional findings: None.BASIC METABOLIC [id number] 06:10:02 Test Item Value Reference Range Interpretation Comments SODIUM (BEAKER) 136 meq/L 136-145 (test code = 381) POTASSIUM 4.9 meq/L 3.5-5.1 Specimen modera tely (BEAKER) (test hemolyzed code = 379) CHLORIDE (BEAKER) 104 meq/L 98-107 (test code = 382) CO2 (BEAKER) 21 meq/L 22-29 L (test code = 355) BLOOD UREA 27 mg/dL 7-21 H NITROGEN (BEAKER) (test code = 354) CREATININE 1.31 mg/dL 0.57-1.25 H Specimen modera tely (BEAKER) (test hemolyzed code = 358) GLUCOSE RANDOM 155 mg/dL 70-105 H (BEAKER) (test code = 652) CALCIUM (BEAKER) 8.7 mg/dL 8.4-10.2 (test code = 697) EGFR (BEAKER) 71 Interpretatio n of eGFR (test code = [...] not appl icable for dialysis patien ts Hand Slitter ID - [id number] 06:10:01 Test Item Value Reference Range Interpretation Comments PHOSPHORUS (BEAKER) 4.3 mg/dL 2.3-4.7 Specimen moderately (test code = 604) hemolyzed Hand Slitter ID - [id number] 06:10:00 Test Item Value Reference Range Interpretation Comments MAGNESIUM (BEAKER) 1.8 mg/dL 1.6-2.6 Specimen moderately (test code = 627) hemolyzed Hand Slitter ID - ADMINOXYGEN SATURATION, [id number] 05:53:01 Test Item Value Reference Range Interpretation Comments O2 SATURATION (MEASURED) (BEAKER) 86.0 % (test code = 1455) CALCIUM, [id number] 05:42:29 Test Item Value Reference Range Interpretation Comments CALCIUM IONIZED (BEAKER) (test 1.14 mmol/L 1.12-1.27 code = 698) PH, BLOOD (BEAKER) (test code = 7.35 1810) CBC W/PLT COUNT & AUTO [id number] 05:36:53 Test Item Value Reference Range Interpretation Comments WHITE BLOOD CELL COUNT (BEAKER) 14.6 K/ L 3.5-10.5 H (test code = 775) RED BLOOD CELL COUNT (BEAKER) 3.57 M/ L 4.63-6.08 L (test code = 761) HEMOGLOBIN (BEAKER) (test code = 10.5 GM/DL 13.7-17.5 L 410) HEMATOCRIT (BEAKER) (test code = 32.0 % 40.1-51.0 L 411) MEAN CORPUSCULAR VOLUME (BEAKER) 90 fL 79-92 (test code = 753) MEAN CORPUSCULAR HEMOGLOBIN 29.4 pg 25.7-32.2 (BEAKER) (test code = 751) MEAN CORPUSCULAR HEMOGLOBIN CONC 32.8 GM/DL 32.3-36.5 (BEAKER) (test code = 752) RED CELL DISTRIBUTION WIDTH 16.0 % 11.6-14.4 H (BEAKER) (test code = 412) PLATELET COUNT (BEAKER) (test 422 K/CU MM 150-450 code = 756) MEAN PLATELET VOLUME (BEAKER) 8.1 fL 9.4-12.4 L (test code = 754) NUCLEATED RED BLOOD CELLS 0 /100 WBC 0-0 (BEAKER) (test code = 413) NEUTROPHILS RELATIVE PERCENT 83 % (BEAKER) (test code = 429) LYMPHOCYTES RELATIVE PERCENT 9 % (BEAKER) (test code = 430) MONOCYTES RELATIVE PERCENT 3 % (BEAKER) (test code = 431) EOSINOPHILS RELATIVE PERCENT 3 % (BEAKER) (test code = 432) BASOPHILS RELATIVE PERCENT 0 % (BEAKER) (test code = 437) NEUTROPHILS ABSOLUTE COUNT 12.11 K/ L 1.78-5.38 H (BEAKER) (test code = 670) LYMPHOCYTES ABSOLUTE COUNT 1.25 K/ L 1.32-3.57 L (BEAKER) (test code = 414) MONOCYTES ABSOLUTE COUNT (BEAKER) 0.50 K/ L 0.30-0.82 (test code = 415) EOSINOPHILS ABSOLUTE COUNT 0.40 K/ L 0.04-0.54 (BEAKER) (test code = 416) BASOPHILS ABSOLUTE COUNT ([facility]) 0.05 K/ L 0.01-0.08 (test code = 417) IMMATURE GRANULOCYTES-RELATIVE 1.70 % 0.00-1.00 H PERCENT ([facility]) (test code = 2801) POCT-GLUCOSE [id number] 22:38:53 Test Item Value Reference Range Interpretation Comments POC-GLUCOSE METER 137 mg/dL 70-110 H : TESTED A T [facility] 6720 ([facility]) (test code = [facility], 1538) [address]: Hand Slitter/Techni macrina ID = [id number] for RAMY COVARRUBIAS POCT-GLUCOSE [id number] 18:34:37 Test Item Value Reference Range Interpretation Comments POC-GLUCOSE METER 85 mg/dL 70-110 : TESTED A T [facility] 6720 ([facility]) (test code = [facility], 1538) [address]: Hand Slitter/Techni macrina ID = [id number] for Go, [place] POCT-GLUCOSE [id number] 16:13:42 Test Item Value Reference Range Interpretation Comments POC-GLUCOSE METER 93 mg/dL 70-110 : TESTED A T [facility] 6720 ([facility]) (test code = [facility], 1538) [address]: Hand Slitter/Techni macrina ID = [id number] for Shayy watson, Moon POCT-GLUCOSE [id number] 11:21:34 Test Item Value Reference Range Interpretation Comments POC-GLUCOSE METER 103 mg/dL 70-110 : TESTED A T [facility] 6720 ([facility]) (test code = [facility], 1538) [address]: Hand Slitter/Techni macrina ID = [id number] for Damon, Moon TACROLIMUS [id number] 10:13:50 Test Item Value Reference Range Interpretation Comments TACROLIMUS BLOOD 7.9 ng/mL 10.0-20.0 L Test perfor med on Nelson ([facility]) (test code Architec t Immunoassay = 657) system with Chemiluminescen t Microparticle I mmunoassay (CMIA) deepak tavarez Hand Slitter ID - ADMINPOCT-GLUCOSE [id number] 07:55:34 Test Item Value Reference Range Interpretation Comments POC-GLUCOSE METER 100 mg/dL 70-110 : TESTED A T [facility] 6720 (BEAKER) (test code = FILEMON Fuentes [facility], 1538) [address]: Hand Slitter/Techni macrina ID = [id number] for Moon Damon [id number] 06:52:07 Test Item Value Reference Range Interpretation Comments MAGNESIUM (BEAKER) 1.6 mg/dL 1.6-2.6 Specimen slightly (test code = 627) hemolyzed Hand Slitter ID - [id number] 06:52:07 Test Item Value Reference Range Interpretation Comments PHOSPHORUS (BEAKER) 3.6 mg/dL 2.3-4.7 Specimen slightly (test code = 604) hemolyzed Hand Slitter ID - MMBASIC METABOLIC [id number] 06:52:07 Test Item Value Reference Range Interpretation Comments SODIUM (BEAKER) 133 meq/L 136-145 L (test code = 381) POTASSIUM 4.9 meq/L 3.5-5.1 Specimen slight ly (BEAKER) (test hemolyzed code = 379) CHLORIDE (BEAKER) 103 meq/L 98-107 (test code = 382) CO2 (BEAKER) 24 meq/L 22-29 (test code = 355) BLOOD UREA 27 mg/dL 7-21 H NITROGEN (BEAKER) (test code = 354) CREATININE 1.19 mg/dL 0.57-1.25 Specimen slight ly (BEAKER) (test hemolyzed code = 358) GLUCOSE RANDOM 101 mg/dL 70-105 (BEAKER) (test code = 652) CALCIUM (BEAKER) 8.8 mg/dL 8.4-10.2 (test code = 697) EGFR (BEAKER) 79 Interpretatio n of eGFR (test code = [...] not appl icable for dialysis patien ts Hand Slitter ID - MMB-TYPE NATRIURETIC FACTOR (BNP)2022-07-16 06:37:46 Test Item Value Reference Range Interpretation Comments B-TYPE NATRIURETIC PEPTIDE (BEAKER) 334 pg/mL 0-100 H (test code = 700) Hand Slitter ID - MMXR CHEST 1 VIEW PORTABLE / [id number] 06:32:[address] [facility] 1980 Sex: MXR CHEST 1 VIEW PORTABLE / BEDSIDEINDICATION: s/p OHTlung evalCOMPARISON: Prior day's examFINDINGS: Portable frontal view of the chest. IMPRESSION:Support Lines: PICC tip overlies the SVC. Left chest tube. Lungs and pleura: Lungs are clear. No significant pneumothorax.Heart and mediastinum: Stable contours. Stable surgical changes.Additional findings: None.CALCIUM, [id number] 06:21:03 Test Item Value Reference Range Interpretation Comments CALCIUM IONIZED (BEAKER) (test 1.16 mmol/L 1.12-1.27 code = 698) PH, BLOOD (BEAKER) (test code = 7.42 1810) CBC W/PLT COUNT & AUTO [id number] 06:17:58 Test Item Value Reference Range Interpretation Comments WHITE BLOOD CELL COUNT (BEAKER) 16.3 K/ L 3.5-10.5 H (test code = 775) RED BLOOD CELL COUNT (BEAKER) 3.39 M/ L 4.63-6.08 L (test code = 761) HEMOGLOBIN (BEAKER) (test code = 9.9 GM/DL 13.7-17.5 L 410) HEMATOCRIT (BEAKER) (test code = 31.0 % 40.1-51.0 L 411) MEAN CORPUSCULAR VOLUME (BEAKER) 91 fL 79-92 (test code = 753) MEAN CORPUSCULAR HEMOGLOBIN 29.2 pg 25.7-32.2 (BEAKER) (test code = 751) MEAN CORPUSCULAR HEMOGLOBIN CONC 31.9 GM/DL 32.3-36.5 L (BEAKER) (test code = 752) RED CELL DISTRIBUTION WIDTH 15.9 % 11.6-14.4 H (BEAKER) (test code = 412) PLATELET COUNT (BEAKER) (test 364 K/CU MM 150-450 code = 756) MEAN PLATELET VOLUME (BEAKER) 8.3 fL 9.4-12.4 L (test code = 754) NUCLEATED RED BLOOD CELLS 0 /100 WBC 0-0 (BEAKER) (test code = 413) NEUTROPHILS RELATIVE PERCENT 81 % (BEAKER) (test code = 429) LYMPHOCYTES RELATIVE PERCENT 9 % (BEAKER) (test code = 430) MONOCYTES RELATIVE PERCENT 4 % (BEAKER) (test code = 431) EOSINOPHILS RELATIVE PERCENT 2 % (BEAKER) (test code = 432) BASOPHILS RELATIVE PERCENT 0 % (BEAKER) (test code = 437) NEUTROPHILS ABSOLUTE COUNT 13.24 K/ L 1.78-5.38 H (BEAKER) (test code = 670) LYMPHOCYTES ABSOLUTE COUNT 1.53 K/ L 1.32-3.57 (BEAKER) (test code = 414) MONOCYTES ABSOLUTE COUNT (BEAKER) 0.70 K/ L 0.30-0.82 (test code = 415) EOSINOPHILS ABSOLUTE COUNT 0.28 K/ L 0.04-0.54 (BEAKER) (test code = 416) BASOPHILS ABSOLUTE COUNT (BEAKER) 0.04 K/ L 0.01-0.08 (test code = 417) IMMATURE GRANULOCYTES-RELATIVE 3.00 % 0.00-1.00 H PERCENT (BEAKER) (test code = 2801) POCT-GLUCOSE [id number] 20:43:49 Test Item Value Reference Range Interpretation Comments POC-GLUCOSE METER 151 mg/dL 70-110 H : TESTED A T [facility] 6720 (BEAKER) (test code = [place], 1538) [address]: Hand Slitter/Techni macrina ID = [id number] for SAUMYA HANSEN POCT-GLUCOSE [id number] 16:44:33 Test Item Value Reference Range Interpretation Comments POC-GLUCOSE METER 119 mg/dL 70-110 H : TESTED A T [facility] 6720 (BEAKER) (test code = [facility], 1538) 601[address]: Hand Slitter/Techni macrina ID = [id number] for Flo Damona CREATINE KINASE (CK)2022-07-15 14:21:23 Test Item Value Reference Range Interpretation Comments CREATINE KINASE TOTAL (BEAKER) (test 19 U/L 29-200 L code = 380) Hand Slitter ID - JSTACROLIMUS [id number] 12:02:21 Test Item Value Reference Range Interpretation Comments TACROLIMUS BLOOD 8.6 ng/mL 10.0-20.0 L Test perfor med on Nelson ([facility] (test code Architec t Immunoassay = 657) system with Chemiluminescen t Microparticle I mmunoassay (CMIA) deepak garrison. Hand Slitter ID - ADMINPOCT-GLUCOSE [id number] 11:49:20 Test Item Value Reference Range Interpretation Comments POC-GLUCOSE METER 101 mg/dL 70-110 : TESTED A T [facility] 6720 ([facility]) (test code = [facility], 1538) 784[address]: Hand Slitter/Techni macrina ID = [id number] for Flo Damona POCT-GLUCOSE [id number] 08:10:17 Test Item Value Reference Range Interpretation Comments POC-GLUCOSE METER 129 mg/dL 70-110 H : [facility] T [facility] 6720 [facility] (test code = [facility], 1538) 33199: Hand Slitter/Techni macrina ID = [id number] for Flo Damona BASIC METABOLIC [id number] 07:43:43 Test Item Value Reference Range Interpretation Comments SODIUM (BEAKER) 135 meq/L 136-145 L (test code = 381) POTASSIUM 4.6 meq/L 3.5-5.1 Specimen slight ly (BEAKER) (test hemolyzed code = 379) CHLORIDE (BEAKER) 103 meq/L 98-107 (test code = 382) CO2 (BEAKER) 22 meq/L 22-29 (test code = 355) BLOOD UREA 27 mg/dL 7-21 H NITROGEN (BEAKER) (test code = 354) CREATININE 1.11 mg/dL 0.57-1.25 Specimen slight ly (BEAKER) (test hemolyzed code = 358) GLUCOSE RANDOM 96 mg/dL 70-105 (BEAKER) (test code = 652) CALCIUM (BEAKER) 8.6 mg/dL 8.4-10.2 (test code = 697) EGFR (BEAKER) 86 Interpretatio n of eGFR (test code = [...] not appl icable for dialysis patien ts Hand Slitter ID - [id number] 07:43:42 Test Item Value Reference Range Interpretation Comments MAGNESIUM (BEAKER) 1.5 mg/dL 1.6-2.6 L Specimen slightly (test code = 627) hemolyzed Hand Slitter ID - [id number] 07:43:42 Test Item Value Reference Range Interpretation Comments PHOSPHORUS (BEAKER) 3.5 mg/dL 2.3-4.7 Specimen slightly (test code = 604) hemolyzed Hand Slitter ID - JSXR CHEST 1 VIEW PORTABLE / [id number] 07:07:[address] [facility] : 1980 Sex: MXR CHEST 1 VIEW PORTABLE / BEDSIDEINDICATION: Lung evalCOMPARISON: Prior day's examFINDINGS: Portable frontal view of the chest. IMPRESSION:Support Lines: PICC tip overlies the SVC. Left chest tube. Lungs and pleura: Lungs are clear. No significant pneumothorax.Heart and mediastinum: Stable contours. Stable surgical changes.Additional findings: None.CBC W/PLT COUNT & AUTO DIFFERENTIAL 2022-07-15 06:57:38 Test Item Value Reference Range Interpretation Comments WHITE BLOOD CELL COUNT (BEAKER) 16.6 K/ L 3.5-10.5 H (test code = 775) RED BLOOD CELL COUNT (BEAKER) 3.47 M/ L 4.63-6.08 L (test code = 761) HEMOGLOBIN (BEAKER) (test code = 10.1 GM/DL 13.7-17.5 L 410) HEMATOCRIT (BEAKER) (test code = 31.7 % 40.1-51.0 L 411) MEAN CORPUSCULAR VOLUME (BEAKER) 91 fL 79-92 (test code = 753) MEAN CORPUSCULAR HEMOGLOBIN 29.1 pg 25.7-32.2 (BEAKER) (test code = 751) MEAN CORPUSCULAR HEMOGLOBIN CONC 31.9 GM/DL 32.3-36.5 L (BEAKER) (test code = 752) RED CELL DISTRIBUTION WIDTH 15.9 % 11.6-14.4 H (BEAKER) (test code = 412) PLATELET COUNT (BEAKER) (test 334 K/CU MM 150-450 code = 756) MEAN PLATELET VOLUME (BEAKER) 8.0 fL 9.4-12.4 L (test code = 754) NUCLEATED RED BLOOD CELLS 0 /100 WBC 0-0 (BEAKER) (test code = 413) NEUTROPHILS RELATIVE PERCENT 79 % (BEAKER) (test code = 429) LYMPHOCYTES RELATIVE PERCENT 10 % (BEAKER) (test code = 430) MONOCYTES RELATIVE PERCENT 5 % (BEAKER) (test code = 431) EOSINOPHILS RELATIVE PERCENT 2 % (BEAKER) (test code = 432) BASOPHILS RELATIVE PERCENT 0 % (BEAKER) (test code = 437) NEUTROPHILS ABSOLUTE COUNT 13.17 K/ L 1.78-5.38 H (BEAKER) (test code = 670) LYMPHOCYTES ABSOLUTE COUNT 1.65 K/ L 1.32-3.57 (BEAKER) (test code = 414) MONOCYTES ABSOLUTE COUNT (BEAKER) 0.80 K/ L 0.30-0.82 (test code = 415) EOSINOPHILS ABSOLUTE COUNT 0.25 K/ L 0.04-0.54 (BEAKER) (test code = 416) BASOPHILS ABSOLUTE COUNT (BEAKER) 0.04 K/ L 0.01-0.08 (test code = 417) IMMATURE GRANULOCYTES-RELATIVE 4.20 % 0.00-1.00 H PERCENT (BEAKER) (test code = 2801) CALCIUM, [id number] 06:43:44 Test Item Value Reference Range Interpretation Comments CALCIUM IONIZED (BEAKER) (test 1.18 mmol/L 1.12-1.27 code = 698) PH, BLOOD (BEAKER) (test code = 7.38 1810) POCT-GLUCOSE [id number] 21:42:06 Test Item Value Reference Range Interpretation Comments POC-GLUCOSE METER 113 mg/dL 70-110 H : TESTED A T [facility] 6720 ([facility]) (test code = [facility], 1538) 35817: Hand Slitter/Techni macrina ID = [id number] for Dinora Castro POCT-GLUCOSE [id number] 18:49:41 Test Item Value Reference Range Interpretation Comments POC-GLUCOSE METER 112 mg/dL 70-110 H : TESTED A T [facility] 6720 ([facility]) (test code = [facility], 1538) 72839: Hand Slitter/Techni macrina ID = [id number] for JOSE TONEPATRICIA FELIX TACROLIMUS [id number] 08:52:56 Test Item Value Reference Range Interpretation Comments TACROLIMUS BLOOD 6.2 ng/mL 10.0-20.0 L Test perfor med on Nelson (BEAKER) (test code Architec t Immunoassay = 657) system with Chemiluminescen t Microparticle I mmunoassay (CMIA) deepak garrison. Hand Slitter ID - ADMIN(CELLAVISION MANUAL DIFF)2022-07-14 08:39:24 Test Item Value Reference Range Interpretation Comments NEUTROPHILS - REL 81 % (CELLAVISION)(BEAKER) (test code = 2816) LYMPHOCYTES - REL 11 % (CELLAVISION)(BEAKER) (test code = 2817) MONOCYTES - REL 4 % (CELLAVISION)(BEAKER) (test code = 2818) EOSINOPHILS - REL 3 % (CELLAVISION)(BEAKER) (test code = 2819) METAMYELOCYTES - REL 1 % 0-0 H (CELLAVISION)(BEAKER) (test code = 2821) NEUTROPHILS - ABS 12.64 K/ul 1.78-5.38 H (CELLAVISION)(BEAKER) (test code = 2830) LYMPHOCYTES - ABS 1.72 K/ul 1.32-3.57 (CELLAVISION)(BEAKER) (test code = 2831) MONOCYTES - ABS 0.62 K/uL 0.30-0.82 (CELLAVISION)(BEAKER) (test code = 2832) EOSINOPHILS - ABS 0.47 K/uL 0.04-0.54 (CELLAVISION)(BEAKER) (test code = 2834) METAMYELOCYTES - ABS 0.16 K/uL 0.00-0.00 H (CELLAVISION)(BEAKER) (test code = 2836) TOTAL COUNTED (BEAKER) (test code 100 = 1351) WBC MORPHOLOGY (BEAKER) (test code Normal = 487) PLT MORPHOLOGY (BEAKER) (test code Normal = 486) ANISOCYTOSIS (BEAKER) (test code = 1+ few 961) MICROCYTES (BEAKER) (test code = 1+ few 965) POIKILOCYTES (BEAKER) (test code = 1+ few 966) OVALOCYTES (BEAKER) (test code = 1+ few 477) ARTIFACT (CELLAVISION)(BEAKER) Present (test code = 3432) PLATELET CONCENTRATION Adequate (CELLAVISION)(BEAKER) (test code = 3438) Hand Slitter ID - Ammy Singer comments: Slide comments:CBC W/PLT COUNT & AUTO [id number] 08:39:23 Test Item Value Reference Range Interpretation Comments WHITE BLOOD CELL COUNT (BEAKER) 15.6 K/ L 3.5-10.5 H (test code = 775) RED BLOOD CELL COUNT (BEAKER) 3.39 M/ L 4.63-6.08 L (test code = 761) HEMOGLOBIN (BEAKER) (test code = 10.0 GM/DL 13.7-17.5 L 410) HEMATOCRIT (BEAKER) (test code = 30.8 % 40.1-51.0 L 411) MEAN CORPUSCULAR VOLUME (BEAKER) 91 fL 79-92 (test code = 753) MEAN CORPUSCULAR HEMOGLOBIN 29.5 pg 25.7-32.2 (BEAKER) (test code = 751) MEAN CORPUSCULAR HEMOGLOBIN CONC 32.5 GM/DL 32.3-36.5 (BEAKER) (test code = 752) RED CELL DISTRIBUTION WIDTH 16.0 % 11.6-14.4 H (BEAKER) (test code = 412) PLATELET COUNT (BEAKER) (test 310 K/CU MM 150-450 code = 756) MEAN PLATELET VOLUME (BEAKER) 8.0 fL 9.4-12.4 L (test code = 754) NUCLEATED RED BLOOD CELLS 0 /100 WBC 0-0 (BEAKER) (test code = 413) XR CHEST 1 VIEW PORTABLE / [id number] 07:45:36 [facility] 1980 Sex: MChest one view:HISTORY: Lung evaluationCompared to 07/13/2022.Subsegmental atelectasis is again present inthe left upper lung. Theright lung appears clear. There is no pleural effusion or pneumothorax.Cardiac size is within normal limits. Sternotomy changes are againnoted. The support apparatus appears unchanged in position. Soft tissueemphysema along the lower left chest wall adjacent to the chest tube isagain noted.[id number] 07:27:51 Test Item Value Reference Range Interpretation Comments PHOSPHORUS (BEAKER) 3.3 mg/dL 2.3-4.7 Specimen slightly (test code = 604) hemolyzed Hand Slitter ID - MARCOBASIC METABOLIC [id number] 07:27:51 Test Item Value Reference Range Interpretation Comments SODIUM (BEAKER) 137 meq/L 136-145 (test code = 381) POTASSIUM 4.6 meq/L 3.5-5.1 Specimen slight ly (BEAKER) (test hemolyzed code = 379) CHLORIDE (BEAKER) 106 meq/L 98-107 (test code = 382) CO2 (BEAKER) 20 meq/L 22-29 L (test code = 355) BLOOD UREA 23 mg/dL 7-21 H NITROGEN (BEAKER) (test code = 354) CREATININE 0.77 mg/dL 0.57-1.25 Specimen slight ly (BEAKER) (test hemolyzed code = 358) GLUCOSE RANDOM 108 mg/dL 70-105 H (BEAKER) (test code = 652) CALCIUM (BEAKER) 8.3 mg/dL 8.4-10.2 L (test code = 697) EGFR (BEAKER) 115 Interpretatio n of eGFR (test code = mL/min/1.73 values Stage D escription 1092) sq m Result G1 Ana l or high >=90 G2 Mildly decreased 60-89 G3a Mildl y to moderately 45-5 9 G3b Moderately to s everely 30-44 G4 Severl y decreased 15-29 G5 Kidney failure <15Reported eGF R is based on the CKD-EPI 1 equation that d oes not use a race coefficientEsti mated GFR is not as accur ate as Creatinine Cathy melodie in predicting glom erular filtration rate . Estimated GFR is not appl icable for dialysis patien ts Hand Slitter ID - [id number] 07:27:50 Test Item Value Reference Range Interpretation Comments MAGNESIUM (BEAKER) 1.7 mg/dL 1.6-2.6 Specimen slightly (test code = 627) hemolyzed Hand Slitter ID - MARCOCALCIUM, [id number] 06:40:25 Test Item Value Reference Range Interpretation Comments CALCIUM IONIZED (BEAKER) (test 1.14 mmol/L 1.12-1.27 code = 698) PH, BLOOD ([facility]) (test code = 7.39 1810) OXYGEN SATURATION, [id number] 06:39:42 Test Item Value Reference Range Interpretation Comments O2 SATURATION (MEASURED) ([facility]) 96.0 % (test code = 1455) POCT-GLUCOSE [id number] 16:34:43 Test Item Value Reference Range Interpretation Comments POC-GLUCOSE METER 143 mg/dL 70-110 H : Notified RN/: (MIA) (test code = TESTED AT [place] [id number] 1538) [facility], [id number]: Hand Slitter/Techni macrina ID = [id number] for PH INISEE, KEIRY XR CHEST 1 VIEW PORTABLE / [id number] 12:40:35 [facility] : 1980 Sex: MEXAMINATION: XR CHEST 1 VIEW PORTABLE / BEDSIDE.INDICATION: 41-year-old male status post repositioning ofchest tube.COMPARISON: Chest radiograph dated 07/13/2022 at 1:29 AM.FINDINGS/ IMPRESSION:Left-sided chest tube is noted in stable position. No definitepneumothorax. Interval development of subcutaneous emphysema along theleft chest wall. Lungs are clear of consolidation. Other findings remainunchanged.POCT-GLUCOSE [id number] 11:37:34 Test Item Value Reference Range Interpretation Comments POC-GLUCOSE METER 148 mg/dL 70-110 H : Notified RN/: (MIA) (test code = TESTED AT [place] [address] 1538) [facility], [address]: Hand Slitter/Techni macrina ID = [id number] for PH INISEE, KEIRY LACTIC ACID, [id number] 10:25:40 Test Item Value Reference Range Interpretation Comments LACTATE BLOOD ARTERIAL (2) 1.7 mmol/L 0.5-2.0 (BEAKER) (test code = 2874) Hand Slitter ID - mmTACROLIMUS [id number] 10:23:29 Test Item Value Reference Range Interpretation Comments TACROLIMUS BLOOD 6.9 ng/mL 10.0-20.0 L Test perfor med on Nelson (BEAKER) (test code Architec t Immunoassay = 657) system with Chemiluminescen t Microparticle I mmunoassay (CMIA) technolo gy. Hand Slitter ID - ADMINPOCT-GLUCOSE [id number] 08:09:35 Test Item Value Reference Range Interpretation Comments POC-GLUCOSE METER 115 mg/dL 70-110 H : TESTED A T [facility] 6720 (BEAKER) (test code = [place], 1538) [address]: Hand Slitter/Techni macrina ID = [id number] for Ammy Campa (CELLAVISION MANUAL DIFF)2022-07-13 07:14:25 Test Item Value Reference Range Interpretation Comments NEUTROPHILS - REL 93 % (CELLAVISION)(BEAKER) (test code = 2816) LYMPHOCYTES - REL 2 % (CELLAVISION)(BEAKER) (test code = 2817) MONOCYTES - REL 3 % (CELLAVISION)(BEAKER) (test code = 2818) MYELOCYTES - REL 1 % 0-0 H (CELLAVISION)(BEAKER) (test code = 2822) BANDS - REL (CELLAVISION)(BEAKER) 1 % 0-10 (test code = 2826) NEUTROPHILS - ABS 17.02 K/ul 1.78-5.38 H (CELLAVISION)(BEAKER) (test code = 2830) LYMPHOCYTES - ABS 0.37 K/ul 1.32-3.57 L (CELLAVISION)(BEAKER) (test code = 2831) MONOCYTES - ABS 0.55 K/uL 0.30-0.82 (CELLAVISION)(BEAKER) (test code = 2832) MYELOCYTES-ABS 0.18 K/uL 0.00-0.00 H (CELLAVISION)(BEAKER) (test code = 2837) BANDS - ABS (CELLAVISION)(BEAKER) 0.18 K/uL 0.00-0.80 (test code = 2840) TOTAL COUNTED (BEAKER) (test code 100 = 1351) WBC MORPHOLOGY (BEAKER) (test code Normal = 487) PLT MORPHOLOGY (BEAKER) (test code Normal = 486) POLYCHROMATOPHILLIC RBCS(BEAKER) 1+ few (test code = 478) ANISOCYTOSIS (BEAKER) (test code = 1+ few 961) MICROCYTES (BEAKER) (test code = 1+ few 965) ARTIFACT (CELLAVISION)(BEAKER) Present (test code = 3432) PLATELET CONCENTRATION Adequate (CELLAVISION)(BEAKER) (test code = 3438) Hand Slitter ID - Ammy Singer comments: Slide comments:BASIC METABOLIC [id number] 06:23:20 Test Item Value Reference Range Interpretation Comments SODIUM (BEAKER) 136 meq/L 136-145 (test code = 381) POTASSIUM 4.6 meq/L 3.5-5.1 Specimen slight ly (BEAKER) (test hemolyzed code = 379) CHLORIDE (BEAKER) 107 meq/L 98-107 (test code = 382) CO2 (BEAKER) 20 meq/L 22-29 L (test code = 355) BLOOD UREA 31 mg/dL 7-21 H NITROGEN (BEAKER) (test code = 354) CREATININE 0.87 mg/dL 0.57-1.25 Specimen slight ly (BEAKER) (test hemolyzed code = 358) GLUCOSE RANDOM 124 mg/dL 70-105 H (BEAKER) (test code = 652) CALCIUM (BEAKER) 8.5 mg/dL 8.4-10.2 (test code = 697) EGFR (BEAKER) 112 Interpretatio n of eGFR (test code = [...] not appl icable for dialysis patien ts Hand Slitter ID - [id number] 06:23:19 Test Item Value Reference Range Interpretation Comments PHOSPHORUS (BEAKER) 3.4 mg/dL 2.3-4.7 Specimen slightly (test code = 604) hemolyzed Hand Slitter ID - [id number] 06:23:18 Test Item Value Reference Range Interpretation Comments MAGNESIUM (BEAKER) 1.9 mg/dL 1.6-2.6 Specimen slightly (test code = 627) hemolyzed Hand Slitter ID - mmLACTIC ACID, [id number] 06:02:21 Test Item Value Reference Range Interpretation Comments LACTATE BLOOD ARTERIAL (2) 1.3 mmol/L 0.5-2.0 (BEAKER) (test code = 2874) Hand Slitter ID - MMBLOOD GAS, [id number] 05:57:13 Test Item Value Reference Range Interpretation Comments PH ARTERIAL (BEAKER) (test code = 7.42 7.35-7.45 383) PCO2 ARTERIAL (BEAKER) (test code 34 mm Hg 35-45 L = 384) PO2 ARTERIAL (BEAKER) (test code 122 mm Hg 80-90 H = 385) O2 SATURATION ARTERIAL (BEAKER) 98.5 % 96.0-97.0 H (test code = 386) HCO3 ARTERIAL (BEAKER) (test code 22 mmol/L 21-29 = 388) BASE EXCESS ARTERIAL (BEAKER) -2.2 mmol/L -2.0-3.0 L (test code = 387) PATIENT TEMPERATURE (BEAKER) 36.7 (test code = 1818) FIO2 (BEAKER) (test code = 1819) 21.0 CBC W/PLT COUNT & AUTO [id number] 05:55:54 Test Item Value Reference Range Interpretation Comments WHITE BLOOD CELL COUNT (BEAKER) 18.3 K/ L 3.5-10.5 H (test code = 775) RED BLOOD CELL COUNT (BEAKER) 3.61 M/ L 4.63-6.08 L (test code = 761) HEMOGLOBIN (BEAKER) (test code = 10.4 GM/DL 13.7-17.5 L 410) HEMATOCRIT (BEAKER) (test code = 32.1 % 40.1-51.0 L 411) MEAN CORPUSCULAR VOLUME (BEAKER) 89 fL 79-92 (test code = 753) MEAN CORPUSCULAR HEMOGLOBIN 28.8 pg 25.7-32.2 (BEAKER) (test code = 751) MEAN CORPUSCULAR HEMOGLOBIN CONC 32.4 GM/DL 32.3-36.5 (BEAKER) (test code = 752) RED CELL DISTRIBUTION WIDTH 15.8 % 11.6-14.4 H (BEAKER) (test code = 412) PLATELET COUNT (BEAKER) (test 291 K/CU MM 150-450 code = 756) MEAN PLATELET VOLUME (BEAKER) 8.2 fL 9.4-12.4 L (test code = 754) NUCLEATED RED BLOOD CELLS 0 /100 WBC 0-0 (BEAKER) (test code = 413) POCT-GLUCOSE [id number] 05:55:09 Test Item Value Reference Range Interpretation Comments POC-GLUCOSE METER 121 mg/dL 70-110 H : TESTED A T [facility]20 ([facility]) (test code = [facility], 153) [address]: Hand Slitter/Techni macrina ID = [id number] for BE JAD, TIANA -Elsy CALCIUM, [id number] 05:50:32 Test Item Value Reference Range Interpretation Comments CALCIUM IONIZED (BEAKER) (test 1.17 mmol/L 1.12-1.27 code = 698) PH, BLOOD (BEAKER) (test code = 7.37 1810) OXYGEN SATURATION, [id number] 05:46:46 Test Item Value Reference Range Interpretation Comments O2 SATURATION (MEASURED) (AKER) 80.6 % (test code = 1455) POCT-GLUCOSE [id number] 01:33:09 Test Item Value Reference Range Interpretation Comments POC-GLUCOSE METER 113 mg/dL 70-110 H : TESTED A T [facility] 6720 (AKER) (test code = [facility], 153) [address]: Hand Slitter/Techni macrina ID = [id number] for BE JAD, TIANA -Elsy POCT-GLUCOSE [id number] 22:31:34 Test Item Value Reference Range Interpretation Comments POC-GLUCOSE METER 142 mg/dL 70-110 H : TESTED A T [facility] 6720 (BEAKER) (test code = [facility], 1538) [address]: Hand Slitter/Techni macrina ID = [id number] for MARYLU CELIS BASIC METABOLIC [id number] 21:40:48 Test Item Value Reference Range Interpretation Comments SODIUM (BEAKER) 137 meq/L 136-145 (test code = 381) POTASSIUM 4.7 meq/L 3.5-5.1 Specimen slight ly (BEAKER) (test hemolyzed code = 379) CHLORIDE (BEAKER) 109 meq/L 98-107 H (test code = 382) CO2 (BEAKER) 17 meq/L 22-29 L (test code = 355) BLOOD UREA 33 mg/dL 7-21 H NITROGEN (BEAKER) (test code = 354) CREATININE 0.98 mg/dL 0.57-1.25 Specimen slight ly (BEAKER) (test hemolyzed code = 358) GLUCOSE RANDOM 116 mg/dL 70-105 H (BEAKER) (test code = 652) CALCIUM (BEAKER) 8.7 mg/dL 8.4-10.2 (test code = 697) EGFR (BEAKER) 100 Interpretatio n of eGFR (test code = [...] not appl icable for dialysis patien ts Hand Slitter ID - [id number] 21:40:46 Test Item Value Reference Range Interpretation Comments MAGNESIUM (BEAKER) 2.0 mg/dL 1.6-2.6 Specimen slightly (test code = 627) hemolyzed Hand Slitter ID - MMPOCT-GLUCOSE [id number] 16:47:26 Test Item Value Reference Range Interpretation Comments POC-GLUCOSE METER 127 mg/dL 70-110 H : TESTED A T [facility] 6720 (BEAKER) (test code = [place], 1538) [address]: Hand Slitter/Techni macrina ID = [id number] for Maria A Salgado [id number] 16:36:41 Test Item Value Reference Range Interpretation Comments GLUCOSE RANDOM (BEAKER) (test code 137 mg/dL 70-105 H = 652) Hand Slitter ID - [id number] 16:00:48 Test Item Value Reference Range Interpretation Comments MAGNESIUM (BEAKER) 2.3 mg/dL 1.6-2.6 Specimen moderately (test code = 627) hemolyzed Hand Slitter ID - MMBASIC METABOLIC [id number] 12:19:04 Test Item Value Reference Range Interpretation Comments SODIUM (BEAKER) 137 meq/L 136-145 (test code = 381) POTASSIUM 4.8 meq/L 3.5-5.1 Specimen slight ly (BEAKER) (test hemolyzed code = 379) CHLORIDE (BEAKER) 107 meq/L 98-107 (test code = 382) CO2 (BEAKER) 20 meq/L 22-29 L (test code = 355) BLOOD UREA 32 mg/dL 7-21 H NITROGEN (BEAKER) (test code = 354) CREATININE 0.89 mg/dL 0.57-1.25 Specimen slight ly (BEAKER) (test hemolyzed code = 358) GLUCOSE RANDOM 143 mg/dL 70-105 H (BEAKER) (test code = 652) CALCIUM (BEAKER) 8.6 mg/dL 8.4-10.2 (test code = 697) EGFR (BEAKER) 111 Interpretatio n of eGFR (test code = [...] not appl icable for dialysis patien ts Hand Slitter ID - [id number] 12:19:03 Test Item Value Reference Range Interpretation Comments MAGNESIUM (BEAKER) 2.0 mg/dL 1.6-2.6 Specimen slightly (test code = 627) hemolyzed Hand Slitter ID - DBRAD, CHEST, 1 VIEW, NON [id number] 10:59:00Reason for exam:- >s/p OHTReason for exam:->lung evalShould this be performed at the bedside?->YesARR[facility] : 1980 Sex: MFINAL REPORT CLINICAL HISTORY: s/p OHTlung eval TECHNIQUE: 1 view of the chest. COMPARISON: 07/11/2022 IMPRESSION: Lines and tubes unchanged. No pneumothorax. There is mild bibasilar atelectasis. There is no significant pleural fluid. The cardiomediastinal silhouette is magnified by technique with sternotomy wires. Signed: Raheel Tyson MDReport Verified Date/Time: 07/12/2022 10:59:04 OLIMUS [id number] 09:33:37 Test Item Value Reference Range Interpretation Comments TACROLIMUS BLOOD 8.7 ng/mL 10.0-20.0 L Test perfor med on Nelson (BEAKER) (test code Architec t Immunoassay = 657) system with Chemiluminescen t Microparticle I mmunoassay (CMIA) technolo gy. Hand Slitter ID - ADMINOXYGEN SATURATION, [id number] 09:26:21 Test Item Value Reference Range Interpretation Comments O2 SATURATION (MEASURED) (BEAKER) 83.7 % (test code = 1455) BASIC METABOLIC [id number] 06:19:34 Test Item Value Reference Range Interpretation Comments SODIUM (BEAKER) 135 meq/L 136-145 L (test code = 381) POTASSIUM 4.3 meq/L 3.5-5.1 Specimen slight ly (BEAKER) (test hemolyzed code = 379) CHLORIDE (BEAKER) 104 meq/L 98-107 (test code = 382) CO2 (BEAKER) 21 meq/L 22-29 L (test code = 355) BLOOD UREA 29 mg/dL 7-21 H NITROGEN (BEAKER) (test code = 354) CREATININE 0.90 mg/dL 0.57-1.25 Specimen slight ly (BEAKER) (test hemolyzed code = 358) GLUCOSE RANDOM 111 mg/dL 70-105 H (BEAKER) (test code = 652) CALCIUM (BEAKER) 8.8 mg/dL 8.4-10.2 (test code = 697) EGFR (BEAKER) 111 Interpretatio n of eGFR (test code = [...] not appl icable for dialysis patien ts Hand Slitter ID - [id number] 06:19:33 Test Item Value Reference Range Interpretation Comments PHOSPHORUS (BEAKER) 3.4 mg/dL 2.3-4.7 Specimen slightly (test code = 604) hemolyzed Hand Slitter ID - [id number] 06:19:32 Test Item Value Reference Range Interpretation Comments MAGNESIUM (BEAKER) 2.0 mg/dL 1.6-2.6 Specimen slightly (test code = 627) hemolyzed Hand Slitter ID - MMLACTIC ACID, [id number] 06:09:16 Test Item Value Reference Range Interpretation Comments LACTATE BLOOD ARTERIAL (2) 1.2 mmol/L 0.5-2.0 (BEAKER) (test code = 2874) Hand Slitter ID - MMCBC W/PLT COUNT & AUTO [id number] 06:01:18 Test Item Value Reference Range Interpretation Comments WHITE BLOOD CELL COUNT (BEAKER) 19.6 K/ L 3.5-10.5 H (test code = 775) RED BLOOD CELL COUNT (BEAKER) 3.81 M/ L 4.63-6.08 L (test code = 761) HEMOGLOBIN (BEAKER) (test code = 11.0 GM/DL 13.7-17.5 L 410) HEMATOCRIT (BEAKER) (test code = 33.8 % 40.1-51.0 L 411) MEAN CORPUSCULAR VOLUME (BEAKER) 89 fL 79-92 (test code = 753) MEAN CORPUSCULAR HEMOGLOBIN 28.9 pg 25.7-32.2 (BEAKER) (test code = 751) MEAN CORPUSCULAR HEMOGLOBIN CONC 32.5 GM/DL 32.3-36.5 (BEAKER) (test code = 752) RED CELL DISTRIBUTION WIDTH 15.7 % 11.6-14.4 H (BEAKER) (test code = 412) PLATELET COUNT (BEAKER) (test 292 K/CU MM 150-450 code = 756) MEAN PLATELET VOLUME (BEAKER) 8.4 fL 9.4-12.4 L (test code = 754) NUCLEATED RED BLOOD CELLS 0 /100 WBC 0-0 (BEAKER) (test code = 413) NEUTROPHILS RELATIVE PERCENT 86 % (BEAKER) (test code = 429) LYMPHOCYTES RELATIVE PERCENT 4 % (BEAKER) (test code = 430) MONOCYTES RELATIVE PERCENT 5 % (BEAKER) (test code = 431) EOSINOPHILS RELATIVE PERCENT 0 % (BEAKER) (test code = 432) BASOPHILS RELATIVE PERCENT 0 % (BEAKER) (test code = 437) NEUTROPHILS ABSOLUTE COUNT 16.79 K/ L 1.78-5.38 H (BEAKER) (test code = 670) LYMPHOCYTES ABSOLUTE COUNT 0.87 K/ L 1.32-3.57 L (BEAKER) (test code = 414) MONOCYTES ABSOLUTE COUNT (BEAKER) 1.03 K/ L 0.30-0.82 H (test code = 415) EOSINOPHILS ABSOLUTE COUNT 0.03 K/ L 0.04-0.54 L (BEAKER) (test code = 416) BASOPHILS ABSOLUTE COUNT (BEAKER) 0.03 K/ L 0.01-0.08 (test code = 417) IMMATURE GRANULOCYTES-RELATIVE 4.40 % 0.00-1.00 H PERCENT (BEAKER) (test code = 2801) OXYGEN SATURATION, [id number] 05:45:45 Test Item Value Reference Range Interpretation Comments O2 SATURATION (MEASURED) (BEAKER) 73.6 % (test code = 1455) BLOOD GAS, [id number] 05:42:44 Test Item Value Reference Range Interpretation Comments PH ARTERIAL (BEAKER) (test code = 7.45 7.35-7.45 383) PCO2 ARTERIAL (BEAKER) (test code 35 mm Hg 35-45 = 384) PO2 ARTERIAL (BEAKER) (test code 113 mm Hg 80-90 H = 385) O2 SATURATION ARTERIAL (BEAKER) 98.3 % 96.0-97.0 H (test code = 386) HCO3 ARTERIAL (BEAKER) (test code 23 mmol/L 21-29 = 388) BASE EXCESS ARTERIAL (BEAKER) -0.2 mmol/L -2.0-3.0 (test code = 387) PATIENT TEMPERATURE (BEAKER) 37.0 (test code = 1818) FIO2 (BEAKER) (test code = 1819) 21.0 CALCIUM, [id number] 05:41:59 Test Item Value Reference Range Interpretation Comments CALCIUM IONIZED (BEAKER) (test 1.18 mmol/L 1.12-1.27 code = 698) PH, BLOOD (BEAKER) (test code = 7.45 1810) POCT-GLUCOSE [id number] 05:23:04 Test Item Value Reference Range Interpretation Comments POC-GLUCOSE METER 111 mg/dL 70-110 H : TESTED A T [facility] (BEAKER) (test code = [place], 1538) [address]: Hand Slitter/Techni macrina ID = [id number] for Co Vandana pollock BASIC METABOLIC [id number] 23:49:41 Test Item Value Reference Range Interpretation Comments SODIUM (BEAKER) 135 meq/L 136-145 L (test code = 381) POTASSIUM 4.5 meq/L 3.5-5.1 Specimen slight ly (BEAKER) (test hemolyzed code = 379) CHLORIDE (BEAKER) 105 meq/L 98-107 (test code = 382) CO2 (BEAKER) 19 meq/L 22-29 L (test code = 355) BLOOD UREA 29 mg/dL 7-21 H NITROGEN (BEAKER) (test code = 354) CREATININE 1.30 mg/dL 0.57-1.25 H Specimen slight ly (BEAKER) (test hemolyzed code = 358) GLUCOSE RANDOM 129 mg/dL 70-105 H (BEAKER) (test code = 652) CALCIUM (BEAKER) 8.8 mg/dL 8.4-10.2 (test code = 697) EGFR (BEAKER) 71 Interpretatio n of eGFR (test code = [...] not appl icable for dialysis patien ts Hand Slitter ID - [id number] 23:49:40 Test Item Value Reference Range Interpretation Comments MAGNESIUM (BEAKER) 2.2 mg/dL 1.6-2.6 Specimen slightly (test code = 627) hemolyzed Hand Slitter ID - DBLACTIC ACID, [id number] 23:02:00 Test Item Value Reference Range Interpretation Comments LACTATE BLOOD ARTERIAL (2) 2.8 mmol/L 0.5-2.0 H (BEAKER) (test code = 2874) Hand Slitter ID - DBPOCT-GLUCOSE [id number] 22:29:08 Test Item Value Reference Range Interpretation Comments POC-GLUCOSE METER 162 mg/dL 70-110 H : TESTED A T [facility] [address] (BEAKER) (test code = [place], 1538) [address]: Hand Slitter/Techni macrina ID = [id number] for MARYLU CELIS [id number] 17:46:42 Test Item Value Reference Range Interpretation Comments GLUCOSE RANDOM (BEAKER) (test code 150 mg/dL 70-105 H = 652) Hand Slitter ID - [id number] 16:25:47 Test Item Value Reference Range Interpretation Comments MAGNESIUM (BEAKER) 1.9 mg/dL 1.6-2.6 Specimen slightly (test code = 627) hemolyzed Hand Slitter ID - [id number] 12:07:09 Test Item Value Reference Range Interpretation Comments MAGNESIUM (BEAKER) (test code = 2.3 mg/dL 1.6-2.6 627) Hand Slitter ID - DBBASIC METABOLIC [id number] 12:07:08 Test Item Value Reference Range Interpretation Comments SODIUM (BEAKER) 134 meq/L 136-145 L (test code = 381) POTASSIUM 4.6 meq/L 3.5-5.1 (BEAKER) (test code = 379) CHLORIDE (BEAKER) 104 meq/L 98-107 (test code = 382) CO2 (BEAKER) 19 meq/L 22-29 L (test code = 355) BLOOD UREA 23 mg/dL 7-21 H NITROGEN (BEAKER) (test code = 354) CREATININE 0.90 mg/dL 0.57-1.25 (BEAKER) (test code = 358) GLUCOSE RANDOM 121 mg/dL 70-105 H (BEAKER) (test code = 652) CALCIUM (BEAKER) 9.0 mg/dL 8.4-10.2 (test code = 697) EGFR (BEAKER) 111 Interpretatio n of eGFR (test code = mL/min/1.73 values Stage De scription 1092) sq m Result G1 Ana l or high >=90 G2 Mildly decreased 60-89 G3a Mildl y to moderately 45-5 9 G3b Moderately to s everely 30-44 G4 Severl y decreased 15-29 G5 Kidne y failure <15Reported eGF R is based on the CKD-EPI 1 equation that d oes not use a race coefficientEsti mated GFR is not as accur ate as Creatinine Cathy melodie in predicting glom erular filtration rate . Estimated GFR is not appl icable for dialysis patien ts Hand Slitter ID - DBLACTIC ACID, [id number] 12:02:39 Test Item Value Reference Range Interpretation Comments LACTATE BLOOD 1.9 mmol/L 0.5-2.0 Specimen sligh tly ARTERIAL (2) (BEAKER) hemoly zed (test code = 2874) Hand Slitter ID - DBOXYGEN SATURATION, [id number] 11:33:03 Test Item Value Reference Range Interpretation Comments O2 SATURATION (MEASURED) (BEAKER) 83.8 % (test code = 1455) TACROLIMUS [id number] 10:19:37 Test Item Value Reference Range Interpretation Comments TACROLIMUS BLOOD 4.2 ng/mL 10.0-20.0 L Test perfor med on Nelson (BEAKER) (test code Architec t Immunoassay = 657) system with Chemiluminescen t Microparticle I mmunoassay (CMIA) technolo gy. Hand Slitter ID - ADMINRAD, CHEST, 1 VIEW, NON [id number] 08:34:00Reason for exam:->s/p OHTReason for exam:->lung evalShould this be performed at the bedside?->YesARROY[facility] : 1980 Sex: MFINAL REPORT CLINICAL HISTORY: s/p OHTlung eval TECHNIQUE: 1 view of the chest. COMPARISON: 07/10/2022 IMPRESSION: Right jugular sheath removal. Other lines and tubes unchanged. No pneumothorax. There is mild bibasilar atelectasis. There is no significant pleural fluid. The cardiomediastinal silhouette is magnified by technique with sternotomy wires. Signed: Raheel Tyson MDReport Verified Date/Time: 07/11/2022 08:34:42 BASIC METABOLIC [id number] 06:36:21 Test Item Value Reference Range Interpretation Comments SODIUM (BEAKER) 137 meq/L 136-145 (test code = 381) POTASSIUM 4.2 meq/L 3.5-5.1 Specimen slight ly (BEAKER) (test hemolyzed code = 379) CHLORIDE (BEAKER) 106 meq/L 98-107 (test code = 382) CO2 (BEAKER) 20 meq/L 22-29 L (test code = 355) BLOOD UREA 19 mg/dL 7-21 NITROGEN (BEAKER) (test code = 354) CREATININE 0.81 mg/dL 0.57-1.25 Specimen slight ly (BEAKER) (test hemolyzed code = 358) GLUCOSE RANDOM 99 mg/dL 70-105 (BEAKER) (test code = 652) CALCIUM (BEAKER) 8.6 mg/dL 8.4-10.2 (test code = 697) EGFR (BEAKER) 114 Interpretatio n of eGFR (test code = [...] not appl icable for dialysis patien ts Hand Slitter ID - [id number] 06:36:20 Test Item Value Reference Range Interpretation Comments PHOSPHORUS (BEAKER) 3.0 mg/dL 2.3-4.7 Specimen slightly (test code = 604) hemolyzed Hand Slitter ID - [id number] 06:36:18 Test Item Value Reference Range Interpretation Comments MAGNESIUM (BEAKER) 1.9 mg/dL 1.6-2.6 Specimen slightly (test code = 627) hemolyzed Hand Slitter ID - MMLACTIC ACID, [id number] 06:04:13 Test Item Value Reference Range Interpretation Comments LACTATE BLOOD 1.7 mmol/L 0.5-2.0 Specimen sligh tly ARTERIAL (2) (BEAKER) hemoly zed (test code = 2874) Hand Slitter ID - MMBLOOD GAS, [id number] 05:54:58 Test Item Value Reference Range Interpretation Comments PH ARTERIAL (BEAKER) (test code = 7.45 7.35-7.45 383) PCO2 ARTERIAL (BEAKER) (test code 31 mm Hg 35-45 L = 384) PO2 ARTERIAL (BEAKER) (test code 113 mm Hg 80-90 H = 385) O2 SATURATION ARTERIAL (BEAKER) 98.4 % 96.0-97.0 H (test code = 386) HCO3 ARTERIAL (BEAKER) (test code 21 mmol/L 21-29 = 388) BASE EXCESS ARTERIAL (BEAKER) -1.8 mmol/L -2.0-3.0 (test code = 387) PATIENT TEMPERATURE (BEAKER) 37.0 (test code = 1818) FIO2 (BEAKER) (test code = 1819) 21.0 CALCIUM, [id number] 05:54:34 Test Item Value Reference Range Interpretation Comments CALCIUM IONIZED (BEAKER) (test 1.19 mmol/L 1.12-1.27 code = 698) PH, BLOOD (BEAKER) (test code = 7.41 1810) OXYGEN SATURATION, [id number] 05:53:53 Test Item Value Reference Range Interpretation Comments O2 SATURATION (MEASURED) (BEAKER) 73.0 % (test code = 1455) CBC W/PLT COUNT & AUTO [id number] 05:50:52 Test Item Value Reference Range Interpretation Comments WHITE BLOOD CELL COUNT (BEAKER) 17.4 K/ L 3.5-10.5 H (test code = 775) RED BLOOD CELL COUNT (BEAKER) 3.80 M/ L 4.63-6.08 L (test code = 761) HEMOGLOBIN (BEAKER) (test code = 11.0 GM/DL 13.7-17.5 L 410) HEMATOCRIT (BEAKER) (test code = 33.6 % 40.1-51.0 L 411) MEAN CORPUSCULAR VOLUME (BEAKER) 88 fL 79-92 (test code = 753) MEAN CORPUSCULAR HEMOGLOBIN 28.9 pg 25.7-32.2 (BEAKER) (test code = 751) MEAN CORPUSCULAR HEMOGLOBIN CONC 32.7 GM/DL 32.3-36.5 (BEAKER) (test code = 752) RED CELL DISTRIBUTION WIDTH 15.4 % 11.6-14.4 H (BEAKER) (test code = 412) PLATELET COUNT (BEAKER) (test 232 K/CU MM 150-450 code = 756) MEAN PLATELET VOLUME (BEAKER) 8.5 fL 9.4-12.4 L (test code = 754) NUCLEATED RED BLOOD CELLS 0 /100 WBC 0-0 (BEAKER) (test code = 413) NEUTROPHILS RELATIVE PERCENT 85 % (BEAKER) (test code = 429) LYMPHOCYTES RELATIVE PERCENT 5 % (BEAKER) (test code = 430) MONOCYTES RELATIVE PERCENT 6 % (BEAKER) (test code = 431) EOSINOPHILS RELATIVE PERCENT 0 % (BEAKER) (test code = 432) BASOPHILS RELATIVE PERCENT 0 % (BEAKER) (test code = 437) NEUTROPHILS ABSOLUTE COUNT 14.78 K/ L 1.78-5.38 H (BEAKER) (test code = 670) LYMPHOCYTES ABSOLUTE COUNT 0.80 K/ L 1.32-3.57 L (BEAKER) (test code = 414) MONOCYTES ABSOLUTE COUNT (BEAKER) 1.09 K/ L 0.30-0.82 H (test code = 415) EOSINOPHILS ABSOLUTE COUNT 0.02 K/ L 0.04-0.54 L (BEAKER) (test code = 416) BASOPHILS ABSOLUTE COUNT (BEAKER) 0.03 K/ L 0.01-0.08 (test code = 417) IMMATURE GRANULOCYTES-RELATIVE 3.90 % 0.00-1.00 H PERCENT (BEAKER) (test code = 2801) POCT-GLUCOSE [id number] 05:18:20 Test Item Value Reference Range Interpretation Comments POC-GLUCOSE METER 95 mg/dL 70-110 : TESTED A T [facility] [address] (BEAKER) (test code = [place], 1538) [address]: Hand Slitter/Techni macrina ID = [id number] for Comp uesto, Rizalino LACTIC ACID, [id number] 00:00:00 Test Item Value Reference Range Interpretation Comments LACTATE BLOOD ARTERIAL (2) 2.5 mmol/L 0.5-2.0 H (BEAKER) (test code = 2874) Hand Slitter ID - DBPOCT-GLUCOSE [id number] 23:39:33 Test Item Value Reference Range Interpretation Comments POC-GLUCOSE METER 171 mg/dL 70-110 H : TESTED A T [facility] [address]20 (BEAKER) (test code = [place], 1538) [address]: Hand Slitter/Techni macrina ID = [id number] for Co Vandana pollock BASIC METABOLIC [id number] 18:26:08 Test Item Value Reference Range Interpretation Comments SODIUM (BEAKER) 136 meq/L 136-145 (test code = 381) POTASSIUM 4.2 meq/L 3.5-5.1 Specimen slight ly (BEAKER) (test hemolyzed code = 379) CHLORIDE (BEAKER) 107 meq/L 98-107 (test code = 382) CO2 (BEAKER) 18 meq/L 22-29 L (test code = 355) BLOOD UREA 24 mg/dL 7-21 H NITROGEN (BEAKER) (test code = 354) CREATININE 0.89 mg/dL 0.57-1.25 Specimen slight ly (BEAKER) (test hemolyzed code = 358) GLUCOSE RANDOM 135 mg/dL 70-105 H (BEAKER) (test code = 652) CALCIUM (BEAKER) 8.7 mg/dL 8.4-10.2 (test code = 697) EGFR (BEAKER) 111 Interpretatio n of eGFR (test code = [...] not appl icable for dialysis patien ts Hand Slitter ID - [id number] 18:26:07 Test Item Value Reference Range Interpretation Comments MAGNESIUM (BEAKER) 1.8 mg/dL 1.6-2.6 Specimen slightly (test code = 627) hemolyzed Hand Slitter ID - MARCOLACTIC ACID, [id number] 18:22:39 Test Item Value Reference Range Interpretation Comments LACTATE BLOOD ARTERIAL (2) 1.9 mmol/L 0.5-2.0 (BEAKER) (test code = 2874) Hand Slitter ID - MARCOCALCIUM, [id number] 18:04:01 Test Item Value Reference Range Interpretation Comments CALCIUM IONIZED (BEAKER) (test 1.18 mmol/L 1.12-1.27 code = 698) PH, BLOOD ([facility]) (test code = 7.46 1810) POCT-GLUCOSE [id number] 17:27:55 Test Item Value Reference Range Interpretation Comments POC-GLUCOSE METER 142 mg/dL 70-110 H : TESTED A T [facility] 6720 ([facility]) (test code = [facility], 1538) [address]: Hand Slitter/Techni macrina ID = [id number] for Ryland ware Ammy POCT-GLUCOSE [id number] 13:58:10 Test Item Value Reference Range Interpretation Comments POC-GLUCOSE METER 111 mg/dL 70-110 H : TESTED A T [facility] 6720 ([facility]) (test code = [facility], 1538) [address]: Hand Slitter/Techni macrina ID = [id number] for [place]yland ware, Ammy LACTIC ACID, [id number] 10:41:22 Test Item Value Reference Range Interpretation Comments LACTATE BLOOD 2.1 mmol/L 0.5-2.0 H Specimen sligh tly ARTERIAL (2) (BEAKER) hemoly zed (test code = 2874) Hand Slitter ID - MARCOTACROLIMUS [id number] 09:45:13 Test Item Value Reference Range Interpretation Comments TACROLIMUS BLOOD 3.1 ng/mL 10.0-20.0 L Test perfor med on Nelson (BEAKER) (test code Architec t Immunoassay = 657) system with Chemiluminescen t Microparticle I mmunoassay (CMIA) technolo gy. Hand Slitter ID - [id number] 08:34:57 Test Item Value Reference Range Interpretation Comments PHOSPHORUS (BEAKER) (test code = 2.5 mg/dL 2.3-4.7 604) Hand Slitter ID - [id number] 08:34:56 Test Item Value Reference Range Interpretation Comments MAGNESIUM (BEAKER) (test code = 2.2 mg/dL 1.6-2.6 627) Hand Slitter ID - MARCOBASIC METABOLIC [id number] 08:34:55 Test Item Value Reference Range Interpretation Comments SODIUM (BEAKER) 139 meq/L 136-145 (test code = 381) POTASSIUM 3.9 meq/L 3.5-5.1 (BEAKER) (test code = 379) CHLORIDE (BEAKER) 107 meq/L 98-107 (test code = 382) CO2 (BEAKER) 22 meq/L 22-29 (test code = 355) BLOOD UREA 18 mg/dL 7-21 NITROGEN (BEAKER) (test code = 354) CREATININE 0.83 mg/dL 0.57-1.25 (BEAKER) (test code = 358) GLUCOSE RANDOM 145 mg/dL 70-105 H (BEAKER) (test code = 652) CALCIUM (BEAKER) 8.8 mg/dL 8.4-10.2 (test code = 697) EGFR (BEAKER) 113 Interpretatio n of eGFR (test code = [...] not appl icable for dialysis patien ts Hand Slitter ID - TIMOCALCIUM, [id number] 08:18:38 Test Item Value Reference Range Interpretation Comments CALCIUM IONIZED (BEAKER) (test 1.17 mmol/L 1.12-1.27 code = 698) PH, BLOOD (BEAKER) (test code = 7.50 1810) POCT-GLUCOSE [id number] 08:15:52 Test Item Value Reference Range Interpretation Comments POC-GLUCOSE METER 141 mg/dL 70-110 H : TESTED A T [facility] 6720 (BEAKER) (test code = [place], 1538) [address]: Hand Slitter/Techni macrina ID = [id number] for Radha Elizabeth RAD, CHEST, 1 VIEW, NON [id number] 07:15:00Reason for exam:->s/p OHTReason for exam:->lung evalShould this be performed at the bedside?-&g t;YesARROY[facility] : 1980 Sex: MFINAL REPORT CLINICAL HISTORY: s/p OHTlung eval TECHNIQUE: 1 view of the chest. COMPARISON: 07/09/2022 IMPRESSION: New [place]-Ashli catheter removal. Other lines and tubes unchanged. No pneumothorax. No new lobar consolidation or significant pleural fluid. The cardiomediastinal silhouette is magnified by technique with sternotomy wires. Signed: Raheel Tyson MDReport Verified Date/Time: 07/10/2022 07:15:04 [id number] 03:38:05 Test Item Value Reference Range Interpretation Comments PHOSPHORUS (BEAKER) (test code = 2.6 mg/dL 2.3-4.7 604) Hand Slitter ID - [id number] 03:38:04 Test Item Value Reference Range Interpretation Comments MAGNESIUM (BEAKER) (test code = 2.2 mg/dL 1.6-2.6 627) Hand Slitter ID - MMBASIC METABOLIC [id number] 03:38:03 Test Item Value Reference Range Interpretation Comments SODIUM (BEAKER) 135 meq/L 136-145 L (test code = 381) POTASSIUM 4.4 meq/L 3.5-5.1 (BEAKER) (test code = 379) CHLORIDE (BEAKER) 104 meq/L 98-107 (test code = 382) CO2 (BEAKER) 23 meq/L 22-29 (test code = 355) BLOOD UREA 19 mg/dL 7-21 NITROGEN (BEAKER) (test code = 354) CREATININE 0.82 mg/dL 0.57-1.25 (BEAKER) (test code = 358) GLUCOSE RANDOM 114 mg/dL 70-105 H (BEAKER) (test code = 652) CALCIUM (BEAKER) 8.9 mg/dL 8.4-10.2 (test code = 697) EGFR (BEAKER) 113 Interpretatio n of eGFR (test code = [...] not as accur ate as Creatinine Cathy meoldie in predicting glom erular filtration rate . Estimated GFR is not appl icable for dialysis patien ts Hand Slitter ID - MMLACTIC ACID, [id number] 03:23:55 Test Item Value Reference Range Interpretation Comments LACTATE BLOOD ARTERIAL (2) 1.3 mmol/L 0.5-2.0 (BEAKER) (test code = 2874) Hand Slitter ID - MMCBC W/PLT COUNT & AUTO [id number] 03:22:19 Test Item Value Reference Range Interpretation Comments WHITE BLOOD CELL COUNT (BEAKER) 13.2 K/ L 3.5-10.5 H (test code = 775) RED BLOOD CELL COUNT (BEAKER) 3.56 M/ L 4.63-6.08 L (test code = 761) HEMOGLOBIN (BEAKER) (test code = 10.4 GM/DL 13.7-17.5 L 410) HEMATOCRIT (BEAKER) (test code = 31.8 % 40.1-51.0 L 411) MEAN CORPUSCULAR VOLUME (BEAKER) 89 fL 79-92 (test code = 753) MEAN CORPUSCULAR HEMOGLOBIN 29.2 pg 25.7-32.2 (BEAKER) (test code = 751) MEAN CORPUSCULAR HEMOGLOBIN CONC 32.7 GM/DL 32.3-36.5 (BEAKER) (test code = 752) RED CELL DISTRIBUTION WIDTH 15.2 % 11.6-14.4 H (BEAKER) (test code = 412) PLATELET COUNT (BEAKER) (test 192 K/CU MM 150-450 code = 756) MEAN PLATELET VOLUME (BEAKER) 8.7 fL 9.4-12.4 L (test code = 754) NUCLEATED RED BLOOD CELLS 0 /100 WBC 0-0 (BEAKER) (test code = 413) NEUTROPHILS RELATIVE PERCENT 86 % (BEAKER) (test code = 429) LYMPHOCYTES RELATIVE PERCENT 4 % (BEAKER) (test code = 430) MONOCYTES RELATIVE PERCENT 8 % (BEAKER) (test code = 431) EOSINOPHILS RELATIVE PERCENT 0 % (BEAKER) (test code = 432) BASOPHILS RELATIVE PERCENT 0 % (BEAKER) (test code = 437) NEUTROPHILS ABSOLUTE COUNT 11.45 K/ L 1.78-5.38 H (BEAKER) (test code = 670) LYMPHOCYTES ABSOLUTE COUNT 0.46 K/ L 1.32-3.57 L (BEAKER) (test code = 414) MONOCYTES ABSOLUTE COUNT (BEAKER) 1.05 K/ L 0.30-0.82 H (test code = 415) EOSINOPHILS ABSOLUTE COUNT 0.01 K/ L 0.04-0.54 L (BEAKER) (test code = 416) BASOPHILS ABSOLUTE COUNT (BEAKER) 0.02 K/ L 0.01-0.08 (test code = 417) IMMATURE GRANULOCYTES-RELATIVE 1.90 % 0.00-1.00 H PERCENT (BEAKER) (test code = 2801) BLOOD GAS, [id number] 03:04:00 Test Item Value Reference Range Interpretation Comments PH ARTERIAL (BEAKER) (test code = 7.49 7.35-7.45 H 383) PCO2 ARTERIAL (BEAKER) (test code 34 mm Hg 35-45 L = 384) PO2 ARTERIAL (BEAKER) (test code = 94 mm Hg 80-90 H 385) O2 SATURATION ARTERIAL (BEAKER) 97.6 % 96.0-97.0 H (test code = 386) HCO3 ARTERIAL (BEAKER) (test code 25 mmol/L 21-29 = 388) BASE EXCESS ARTERIAL (BEAKER) 2.1 mmol/L -2.0-3.0 (test code = 387) PATIENT TEMPERATURE (BEAKER) (test 37.5 code = 1818) FIO2 (BEAKER) (test code = 1819) 21.0 CALCIUM, [id number] 03:02:30 Test Item Value Reference Range Interpretation Comments CALCIUM IONIZED (BEAKER) (test 1.17 mmol/L 1.12-1.27 code = 698) PH, BLOOD (BEAKER) (test code = 7.49 1810) OXYGEN SATURATION, [id number] 02:58:27 Test Item Value Reference Range Interpretation Comments O2 SATURATION (MEASURED) (BEAKER) 77.5 % (test code = 1455) POCT-GLUCOSE [id number] 00:46:57 Test Item Value Reference Range Interpretation Comments POC-GLUCOSE METER 143 mg/dL 70-110 H : TESTED A T [facility] 6720 (BEAKER) (test code = [place], 1538) [address]: Hand Slitter/Techni macrina ID = [id number] for Flower haji (contract)Stormy en [id number] 21:10:43 Test Item Value Reference Range Interpretation Comments MAGNESIUM (BEAKER) (test code = 2.0 mg/dL 1.6-2.6 627) Hand Slitter ID - MMBASIC METABOLIC [id number] 21:10:42 Test Item Value Reference Range Interpretation Comments SODIUM (BEAKER) 135 meq/L 136-145 L (test code = 381) POTASSIUM 4.1 meq/L 3.5-5.1 (BEAKER) (test code = 379) CHLORIDE (BEAKER) 103 meq/L 98-107 (test code = 382) CO2 (BEAKER) 23 meq/L 22-29 (test code = 355) BLOOD UREA 21 mg/dL 7-21 NITROGEN (BEAKER) (test code = 354) CREATININE 0.90 mg/dL 0.57-1.25 (BEAKER) (test code = 358) GLUCOSE RANDOM 108 mg/dL 70-105 H (BEAKER) (test code = 652) CALCIUM (BEAKER) 8.8 mg/dL 8.4-10.2 (test code = 697) EGFR (BEAKER) 111 Interpretatio n of eGFR (test code = [...] not appl icable for dialysis patien ts Hand Slitter ID - MMLACTIC ACID, [id number] 21:07:18 Test Item Value Reference Range Interpretation Comments LACTATE BLOOD ARTERIAL (2) 1.4 mmol/L 0.5-2.0 (AKER) (test code = 2874) Hand Slitter ID - MMLACTIC ACID, [id number] 16:53:04 Test Item Value Reference Range Interpretation Comments LACTATE BLOOD 2.6 mmol/L 0.5-2.0 H Specimen sligh tly ARTERIAL (2) (BEAKER) hemoly zed (test code = 2874) Hand Slitter ID - FSEPOCT-GLUCOSE [id number] 16:41:13 Test Item Value Reference Range Interpretation Comments POC-GLUCOSE METER 132 mg/dL 70-110 H : TESTED A T [facility] 6720 ([facility]) (test code = FILEMON Fuentes [facility], 1538) [address]: Hand Slitter/Techni macrina ID = [id number] for Marleny Silva SARS-COV2/RT-PCR ([facility])2022-07-09 15:40:52 Test Item Value Reference Range Interpretation Comments SARS-COV2/RT-PCR Negative Negative The SARS-Co V-2 target (test code = nucleic acids a re not [id number]) detected in thi s specimen. Negative result s do not preclude SARS-C oV-2 infection and s hould not be used as the horace e basis for patient managem ent decisions. Nega tive results must be combine d with clinical observ ations, patient history , and epidemiological information. A false negativ e result may occur if a spec imen is improperly meryl ected, transported or handled. This SARS CoV-2 test is a rapid, real-time RT-PC R test intended for th e qualitative detection of nu cleic acid from SARS-CoV-2 in a nasopharyngeal swab specimen collected from individuals suspected of CO VID-19 by their healthcar e provider. This test has been authorized by FDA under an EUA for use by authorized laboratories. This test is only authorized for the duration of the declaration that circumstances exist justifying the authorization of emergency use of in vitro diagnostic tests for detection and/or diagnosis of COVID-19 under Section 564(b)(1) of the Federal Food, Drug and Cosmetic Act, 21 U.S.C. 360bbb-3(b)(1), unless the authorization is terminated or revoked sooner. Fact Sheet for Healthcare Providers: https://www.[employer] m/Documents/Xpert%20Xpress%20SARS%20CoV-2/Fact%20Sheets/3023802%78ZTYP-BWY-7%20 HEALTHCARE%20PROVIDERS%20FACT%20SHEET.pdf Fact Sheet for Healthcare Patients: https://www.[employer]/Documents/Xpert%20Xp ress%20SARS%20CoV-2/Fact%20Sheets/3023801%53HEAY-SMF-5%20PATIENT%20FACT%20SHEET .pdfOXYGEN SATURATION, [id number] 14:40:34 Test Item Value Reference Range Interpretation Comments O2 SATURATION (MEASURED) (BEAKER) 74.9 % (test code = 1455) [id number] 13:07:27 Test Item Value Reference Range Interpretation Comments MAGNESIUM (BEAKER) (test code = 2.2 mg/dL 1.6-2.6 627) Hand Slitter ID - JSBASIC METABOLIC [id number] 13:07:26 Test Item Value Reference Range Interpretation Comments SODIUM (BEAKER) 133 meq/L 136-145 L (test code = 381) POTASSIUM 4.0 meq/L 3.5-5.1 (BEAKER) (test code = 379) CHLORIDE (BEAKER) 100 meq/L 98-107 (test code = 382) CO2 (BEAKER) 20 meq/L 22-29 L (test code = 355) BLOOD UREA 21 mg/dL 7-21 NITROGEN (BEAKER) (test code = 354) CREATININE 0.84 mg/dL 0.57-1.25 (BEAKER) (test code = 358) GLUCOSE RANDOM 133 mg/dL 70-105 H (BEAKER) (test code = 652) CALCIUM (BEAKER) 9.1 mg/dL 8.4-10.2 (test code = 697) EGFR (BEAKER) 113 Interpretatio n of eGFR (test code = [...] not appl icable for dialysis patien ts Hand Slitter ID - JSLACTIC ACID, [id number] 11:54:42 Test Item Value Reference Range Interpretation Comments LACTATE BLOOD 2.4 mmol/L 0.5-2.0 H Specimen sligh tly ARTERIAL (2) (BEAKER) hemoly zed (test code = 2874) Hand Slitter ID - JSPOCT-GLUCOSE [id number] 10:54:16 Test Item Value Reference Range Interpretation Comments POC-GLUCOSE METER 161 mg/dL 70-110 H : TESTED A T [facility] 6720 (BEAKER) (test code = [place], 1538) [address]: Hand Slitter/Techni macrina ID = [id number] for Marleny Silva TACROLIMUS [id number] 09:13:07 Test Item Value Reference Range Interpretation Comments TACROLIMUS BLOOD 3.2 ng/mL 10.0-20.0 L Test perfor med on Nelson (BEAKER) (test code Architec t Immunoassay = 657) system with Chemiluminescen t Microparticle I mmunoassay (CMIA) technana laura gy. Hand Slitter ID - ADMINRAD, CHEST, 1 VIEW, NON [id number] 06:56:00Reason for exam:->s/p OHTReason for exam:->lung evalShould this be performed at the bedside?->YesCESILIA [facility] : 1980 Sex: MFINAL REPORT CLINICAL HISTORY: s/p OHTlung eval TECHNIQUE: 1 view of the chest. COMPARISON: 07/08/2022 IMPRESSION: The supporting lines and tubes are similar appearing. Bilateral lower lung bandlike opacities are slightly increased. No significant pleural fluid. The cardiomediastinal silhouette is magnified by technique with sternotomy wires. Signed: Raheel Tyson MDReport Verified Date/Time: 07/09/2022 06:56:15 [id number] 05:40:48 Test Item Value Reference Range Interpretation Comments PHOSPHORUS (BEAKER) (test code = 2.6 mg/dL 2.3-4.7 604) Hand Slitter ID - CJ [id number] 05:40:47 Test Item Value Reference Range Interpretation Comments MAGNESIUM (BEAKER) (test code = 1.9 mg/dL 1.6-2.6 627) Hand Slitter ID - CJ WBASIC METABOLIC [id number] 05:40:46 Test Item Value Reference Range Interpretation Comments SODIUM (BEAKER) 137 meq/L 136-145 (test code = 381) POTASSIUM 4.5 meq/L 3.5-5.1 (BEAKER) (test code = 379) CHLORIDE (BEAKER) 105 meq/L 98-107 (test code = 382) CO2 (BEAKER) 22 meq/L 22-29 (test code = 355) BLOOD UREA 22 mg/dL 7-21 H NITROGEN (BEAKER) (test code = 354) CREATININE 0.78 mg/dL 0.57-1.25 (BEAKER) (test code = 358) GLUCOSE RANDOM 112 mg/dL 70-105 H (BEAKER) (test code = 652) CALCIUM (BEAKER) 8.9 mg/dL 8.4-10.2 (test code = 697) EGFR (BEAKER) 115 Interpretatio n of eGFR (test code = [...] not appl icable for dialysis patien ts Hand Slitter BI [place] WB-TYPE NATRIURETIC FACTOR (BNP)2022-07-09 05:22:45 Test Item Value Reference Range Interpretation Comments B-TYPE NATRIURETIC PEPTIDE (BEAKER) 754 pg/mL 0-100 H (test code = 700) Hand Slitter BI [place] WLACTIC ACID, [id number] 05:12:49 Test Item Value Reference Range Interpretation Comments LACTATE BLOOD 1.5 mmol/L 0.5-2.0 Specimen sligh tly ARTERIAL (2) (BEAKER) hemoly zed (test code = 2874) Hand Slitter BI [place] WCBC W/PLT COUNT & AUTO [id number] 05:07:32 Test Item Value Reference Range Interpretation Comments WHITE BLOOD CELL COUNT (BEAKER) 12.0 K/ L 3.5-10.5 H (test code = 775) RED BLOOD CELL COUNT (BEAKER) 3.24 M/ L 4.63-6.08 L (test code = 761) HEMOGLOBIN (BEAKER) (test code = 9.5 GM/DL 13.7-17.5 L 410) HEMATOCRIT (BEAKER) (test code = 29.0 % 40.1-51.0 L 411) MEAN CORPUSCULAR VOLUME (BEAKER) 90 fL 79-92 (test code = 753) MEAN CORPUSCULAR HEMOGLOBIN 29.3 pg 25.7-32.2 (BEAKER) (test code = 751) MEAN CORPUSCULAR HEMOGLOBIN CONC 32.8 GM/DL 32.3-36.5 (BEAKER) (test code = 752) RED CELL DISTRIBUTION WIDTH 15.6 % 11.6-14.4 H (BEAKER) (test code = 412) PLATELET COUNT (BEAKER) (test 166 K/CU MM 150-450 code = 756) MEAN PLATELET VOLUME (BEAKER) 8.8 fL 9.4-12.4 L (test code = 754) NUCLEATED RED BLOOD CELLS 0 /100 WBC 0-0 (BEAKER) (test code = 413) NEUTROPHILS RELATIVE PERCENT 89 % (BEAKER) (test code = 429) LYMPHOCYTES RELATIVE PERCENT 3 % (BEAKER) (test code = 430) MONOCYTES RELATIVE PERCENT 7 % (BEAKER) (test code = 431) EOSINOPHILS RELATIVE PERCENT 0 % (BEAKER) (test code = 432) BASOPHILS RELATIVE PERCENT 0 % (BEAKER) (test code = 437) NEUTROPHILS ABSOLUTE COUNT 10.64 K/ L 1.78-5.38 H (BEAKER) (test code = 670) LYMPHOCYTES ABSOLUTE COUNT 0.32 K/ L 1.32-3.57 L (BEAKER) (test code = 414) MONOCYTES ABSOLUTE COUNT (BEAKER) 0.88 K/ L 0.30-0.82 H (test code = 415) EOSINOPHILS ABSOLUTE COUNT 0.00 K/ L 0.04-0.54 L (BEAKER) (test code = 416) BASOPHILS ABSOLUTE COUNT (BEAKER) 0.01 K/ L 0.01-0.08 (test code = 417) IMMATURE GRANULOCYTES-RELATIVE 1.20 % 0.00-1.00 H PERCENT (BEAKER) (test code = 2801) BLOOD GAS, [id number] 05:01:24 Test Item Value Reference Range Interpretation Comments PH ARTERIAL (BEAKER) (test code = 7.51 7.35-7.45 H 383) PCO2 ARTERIAL (BEAKER) (test code 33 mm Hg 35-45 L = 384) PO2 ARTERIAL (BEAKER) (test code = 99 mm Hg 80-90 H 385) O2 SATURATION ARTERIAL (BEAKER) 98.0 % 96.0-97.0 H (test code = 386) HCO3 ARTERIAL (BEAKER) (test code 26 mmol/L 21-29 = 388) BASE EXCESS ARTERIAL (BEAKER) 2.7 mmol/L -2.0-3.0 (test code = 387) PATIENT TEMPERATURE (BEAKER) (test 37.0 code = 1818) FIO2 (BEAKER) (test code = 1819) 21.0 CALCIUM, [id number] 05:01:23 Test Item Value Reference Range Interpretation Comments CALCIUM IONIZED (BEAKER) (test 1.11 mmol/L 1.12-1.27 L code = 698) PH, BLOOD (BEAKER) (test code = 7.51 1810) OXYGEN SATURATION, [id number] 04:53:49 Test Item Value Reference Range Interpretation Comments O2 SATURATION (MEASURED) (BEAKER) 65.4 % (test code = 1455) POCT-GLUCOSE [id number] 00:57:02 Test Item Value Reference Range Interpretation Comments POC-GLUCOSE METER 116 mg/dL 70-110 H : TESTED A T [facility] 6720 (BEAKER) (test code = FILEMON [address]entes [place], 1538) [address]: Hand Slitter/Techni macrina ID = [id number] for Vivienne Morrell LACTIC ACID, [id number] 21:35:07 Test Item Value Reference Range Interpretation Comments LACTATE BLOOD ARTERIAL (2) 1.4 mmol/L 0.5-2.0 (BEAKER) (test code = 2874) Hand Slitter ID - JSHGB/HCT (H&H) - STAT [id number] 21:12:47 Test Item Value Reference Range Interpretation Comments HEMOGLOBIN (BEAKER) (test code = 11.1 GM/DL 13.0-16.8 L 410) HEMATOCRIT (BEAKER) (test code = 33.0 % 40.0-50.0 L 411) SODIUM NA-STAT [id number] 21:12:46 Test Item Value Reference Range Interpretation Comments SODIUM (BEAKER) (test code = 381) 133 meq/L 136-145 L BLOOD GAS, [id number] 21:12:45 Test Item Value Reference Range Interpretation Comments PH ARTERIAL (BEAKER) (test code = 7.52 7.35-7.45 H 383) PCO2 ARTERIAL (BEAKER) (test code 31 mm Hg 35-45 L = 384) PO2 ARTERIAL (BEAKER) (test code = 86 mm Hg 80-90 385) O2 SATURATION ARTERIAL (BEAKER) 97.4 % 96.0-97.0 H (test code = 386) HCO3 ARTERIAL (BEAKER) (test code 25 mmol/L - = 388) BASE EXCESS ARTERIAL (BEAKER) 2.3 mmol/L -2.0-3.0 (test code = 387) PATIENT TEMPERATURE (BEAKER) (test 37.0 code = 1818) FIO2 (BEAKER) (test code = 1819) 100.0 POTASSIUM-STAT [id number] 21:12:36 Test Item Value Reference Range Interpretation Comments POTASSIUM (BEAKER) (test code = 4.0 meq/L 3.6-5.5 379) GLUCOSE-STAT [id number] 21:12:31 Test Item Value Reference Range Interpretation Comments GLUCOSE RANDOM (BEAKER) (test code 114 mg/dL 70-110 H = 652) [id number] 20:36:32 Test Item Value Reference Range Interpretation Comments MAGNESIUM (BEAKER) (test code = 2.0 mg/dL 1.6-2.6 627) Hand Slitter ID - JSBASI METABOLIC [id number] 20:36:31 Test Item Value Reference Range Interpretation Comments SODIUM (BEAKER) 135 meq/L 136-145 L (test code = 381) POTASSIUM 4.2 meq/L 3.5-5.1 (BEAKER) (test code = 379) CHLORIDE (BEAKER) 101 meq/L 98-107 (test code = 382) CO2 (BEAKER) 23 meq/L 22-29 (test code = 355) BLOOD UREA 24 mg/dL 7-21 H NITROGEN (BEAKER) (test code = 354) CREATININE 1.00 mg/dL 0.57-1.25 (BEAKER) (test code = 358) GLUCOSE RANDOM 115 mg/dL 70-105 H (BEAKER) (test code = 652) CALCIUM (BEAKER) 9.1 mg/dL 8.4-10.2 (test code = 697) EGFR (BEAKER) 98 Interpretatio n of eGFR (test code = [...] not appl icable for dialysis patien ts Hand Slitter ID - JSPOCT-GLUCOSE [id number] 18:33:20 Test Item Value Reference Range Interpretation Comments POC-GLUCOSE METER 128 mg/dL 70-110 H : TESTED A T [facility] 6720 (BEAKER) (test code = FILEMON Fuentes [facility], 1538) [address]: Hand Slitter/Techni macrina ID = [id number] for Taylor Morrow [id number] 15:43:36 Test Item Value Reference Range Interpretation Comments MAGNESIUM (BEAKER) (test code = 2.1 mg/dL 1.6-2.6 627) Hand Slitter ID - AAHAMIDBASIC METABOLIC [id number] 15:43:35 Test Item Value Reference Range Interpretation Comments SODIUM (BEAKER) 134 meq/L 136-145 L (test code = 381) POTASSIUM 4.3 meq/L 3.5-5.1 (BEAKER) (test code = 379) CHLORIDE (BEAKER) 99 meq/L 98-107 (test code = 382) CO2 (BEAKER) 24 meq/L 22-29 (test code = 355) BLOOD UREA 21 mg/dL 7-21 NITROGEN (BEAKER) (test code = 354) CREATININE 0.82 mg/dL 0.57-1.25 (BEAKER) (test code = 358) GLUCOSE RANDOM 117 mg/dL 70-105 H (BEAKER) (test code = 652) CALCIUM (BEAKER) 9.1 mg/dL 8.4-10.2 (test code = 697) EGFR (simpleFLOORS) 113 Interpretatio n of eGFR (test code = [...] is not as accur ate as Creatinine Ctahy melodie in predicting glom erular filtration rate . Estimated GFR is not appl icable for dialysis patien ts Hand Slitter ID - AAHAMIDLACTIC ACID, [id number] 15:38:33 Test Item Value Reference Range Interpretation Comments LACTATE BLOOD ARTERIAL (2) 1.8 mmol/L 0.5-2.0 (simpleFLOORS) (test code = 2874) Hand Slitter ID - JSPOCT-GLUCOSE [id number] 14:08:20 Test Item Value Reference Range Interpretation Comments POC-GLUCOSE METER 136 mg/dL 70-110 H : [facility] (simpleFLOORS) (test code = FILEMON Fuentes [place], 1538) [address]: Hand Slitter/Techni macrnia ID = [id number] for Taylor Morrow TACROLIMUS [id number] 13:13:26 Test Item Value Reference Range Interpretation Comments TACROLIMUS BLOOD 4.0 ng/mL 10.0-20.0 L Test perfor med on Nelson (simpleFLOORS) (test code Architec t Immunoassay = 657) system with Chemiluminescen t Microparticle I mmunoassay (CMIA) technolo gy. Hand Slitter ID - ADMINRAD, CHEST, 1 VIEW, NON [id number] 07:59:00Reason for exam:->s/p OHTReason for exam:->lung evalShould this be performed at the bedside?->Yes[facility] : 1980 Sex: MFINAL REPORT RAD, CHEST, 1 VIEW, NON DEPT INDICATION: s/p OHTlung eval COMPARISON: Prior day's exam FINDINGS: Portable frontal view of the chest. IMPRESSION: Support Lines: PICC tip overlies the atriocaval junction. [place]-Ashli tip overlies the pulmonary outflow tract. Left-sided chest tubes are unchanged. Mediastinal drains. Recent sternotomy with skin sandrita. Lungs and pleura: Lungs are predominantly clear. No significant pneumothorax. Heart and mediastinum: Stable contours. Stable surgical changes. Additional findings: None. Signed: Natalee Orta Verified Date/Time: 07/08/2022 07:59:34 POCT-GLUCOSE METER 2022-07-08 05:59:12 Test Item Value Reference Range Interpretation Comments POC-GLUCOSE METER 117 mg/dL 70-110 H : TESTED A T [facility] 6720 (BEAKER) (test code = FILEMON Alfredo [facility], 1538) [address]: Hand Slitter/Techni macrina ID = [id number] for Shahid Barragan OXYGEN SATURATION, [id number] 04:09:31 Test Item Value Reference Range Interpretation Comments O2 SATURATION (MEASURED) (BEAKER) 83.1 % (test code = 1455) [id number] 04:08:52 Test Item Value Reference Range Interpretation Comments PHOSPHORUS (BEAKER) (test code = 3.1 mg/dL 2.3-4.7 604) Hand Slitter ID - [id number] 04:08:51 Test Item Value Reference Range Interpretation Comments MAGNESIUM (BEAKER) (test code = 2.2 mg/dL 1.6-2.6 627) Hand Slitter ID - BVBASIC METABOLIC [id number] 04:08:50 Test Item Value Reference Range Interpretation Comments SODIUM (BEAKER) 133 meq/L 136-145 L (test code = 381) POTASSIUM 4.2 meq/L 3.5-5.1 (BEAKER) (test code = 379) CHLORIDE (BEAKER) 99 meq/L 98-107 (test code = 382) CO2 (BEAKER) 25 meq/L 22-29 (test code = 355) BLOOD UREA 23 mg/dL 7-21 H NITROGEN (BEAKER) (test code = 354) CREATININE 0.78 mg/dL 0.57-1.25 (BEAKER) (test code = 358) GLUCOSE RANDOM 111 mg/dL 70-105 H (BEAKER) (test code = 652) CALCIUM (BEAKER) 9.1 mg/dL 8.4-10.2 (test code = 697) EGFR (BEAKER) 115 Interpretatio n of eGFR (test code = [...] not appl icable for dialysis patien ts Hand Slitter ID - BVLACTIC ACID, [id number] 03:58:09 Test Item Value Reference Range Interpretation Comments LACTATE BLOOD ARTERIAL (2) 1.2 mmol/L 0.5-2.0 (BEAKER) (test code = 2874) Hand Slitter ID - BVCBC W/PLT COUNT & AUTO [id number] 03:54:47 Test Item Value Reference Range Interpretation Comments WHITE BLOOD CELL COUNT 11.5 K/ L 3.5-10.5 H (BEAKER) (test code = 775) RED BLOOD CELL COUNT 3.15 M/ L 4.63-6.08 L (BEAKER) (test code = 761) HEMOGLOBIN (BEAKER) 9.1 GM/DL 13.7-17.5 L (test code = 410) HEMATOCRIT (BEAKER) 27.4 % 40.1-51.0 L (test code = 411) MEAN CORPUSCULAR 87 fL 79-92 Discordant result VOLUME (BEAKER) (test with p revious. code = 753) Clinical assess ment advised MEAN CORPUSCULAR 28.9 pg 25.7-32.2 HEMOGLOBIN (BEAKER) (test code = 751) MEAN CORPUSCULAR 33.2 GM/DL 32.3-36.5 HEMOGLOBIN CONC (BEAKER) (test code = 752) RED CELL DISTRIBUTION 16.3 % 11.6-14.4 H WIDTH (BEAKER) (test code = 412) PLATELET COUNT 157 K/CU MM 150-450 (BEAKER) (test code = 756) MEAN PLATELET VOLUME 8.6 fL 9.4-12.4 L (BEAKER) (test code = 754) NUCLEATED RED BLOOD 0 /100 WBC 0-0 CELLS (BEAKER) (test code = 413) NEUTROPHILS RELATIVE 87 % PERCENT (BEAKER) (test code = 429) LYMPHOCYTES RELATIVE 2 % PERCENT (BEAKER) (test code = 430) MONOCYTES RELATIVE 10 % PERCENT (BEAKER) (test code = 431) EOSINOPHILS RELATIVE 0 % PERCENT (BEAKER) (test code = 432) BASOPHILS RELATIVE 0 % PERCENT (BEAKER) (test code = 437) NEUTROPHILS ABSOLUTE 10.02 K/ L 1.78-5.38 H COUNT (BEAKER) (test code = 670) LYMPHOCYTES ABSOLUTE 0.25 K/ L 1.32-3.57 L COUNT (BEAKER) (test code = 414) MONOCYTES ABSOLUTE 1.11 K/ L 0.30-0.82 H COUNT (BEAKER) (test code = 415) EOSINOPHILS ABSOLUTE 0.00 K/ L 0.04-0.54 L COUNT (BEAKER) (test code = 416) BASOPHILS ABSOLUTE 0.00 K/ L 0.01-0.08 L COUNT (BEAKER) (test code = 417) IMMATURE 0.90 % 0.00-1.00 GRANULOCYTES-RELATIVE PERCENT (BEAKER) (test code = 2801) BLOOD GAS, [id number] 03:40:00 Test Item Value Reference Range Interpretation Comments PH ARTERIAL (BEAKER) (test code = 7.48 7.35-7.45 H 383) PCO2 ARTERIAL (BEAKER) (test code 37 mm Hg 35-45 = 384) PO2 ARTERIAL (BEAKER) (test code = 88 mm Hg 80-90 385) O2 SATURATION ARTERIAL (BEAKER) 97.3 % 96.0-97.0 H (test code = 386) HCO3 ARTERIAL (BEAKER) (test code 27 mmol/L 21-29 = 388) BASE EXCESS ARTERIAL (BEAKER) 3.6 mmol/L -2.0-3.0 H (test code = 387) PATIENT TEMPERATURE (BEAKER) (test 36.7 code = 1818) FIO2 (BEAKER) (test code = 1819) 21.0 CALCIUM, [id number] 03:39:28 Test Item Value Reference Range Interpretation Comments CALCIUM IONIZED (BEAKER) (test 1.16 mmol/L 1.12-1.27 code = 698) PH, BLOOD (BEAKER) (test code = 7.48 1810) POCT-GLUCOSE [id number] 23:50:01 Test Item Value Reference Range Interpretation Comments POC-GLUCOSE METER 114 mg/dL 70-110 H : TESTED A T [facility] 6720 (BEAKER) (test code = [place], 1538) [id number]: Hand Slitter/Techni macrina ID = [id number] for Shahid Barragan LACTIC ACID, [id number] 22:39:11 Test Item Value Reference Range Interpretation Comments LACTATE BLOOD ARTERIAL (2) 1.8 mmol/L 0.5-2.0 (BEAKER) (test code = 2874) Hand Slitter ID - [id number] 20:19:00 Test Item Value Reference Range Interpretation Comments MAGNESIUM (BEAKER) (test code = 2.1 mg/dL 1.6-2.6 627) Hand Slitter ID - MARCOBASIC METABOLIC [id number] 20:18:59 Test Item Value Reference Range Interpretation Comments SODIUM (BEAKER) 134 meq/L 136-145 L (test code = 381) POTASSIUM 4.4 meq/L 3.5-5.1 (BEAKER) (test code = 379) CHLORIDE (BEAKER) 100 meq/L 98-107 (test code = 382) CO2 (BEAKER) 23 meq/L 22-29 (test code = 355) BLOOD UREA 25 mg/dL 7-21 H NITROGEN (BEAKER) (test code = 354) CREATININE 0.86 mg/dL 0.57-1.25 (BEAKER) (test code = 358) GLUCOSE RANDOM 119 mg/dL 70-105 H (BEAKER) (test code = 652) CALCIUM (BEAKER) 9.4 mg/dL 8.4-10.2 (test code = 697) EGFR (BEAKER) 112 Interpretatio n of eGFR (test code = [...] not appl icable for dialysis patien ts Hand Slitter ID - MARCOLACTIC ACID, [id number] 19:28:18 Test Item Value Reference Range Interpretation Comments LACTATE BLOOD 2.0 mmol/L 0.5-2.0 Specimen sligh tly ARTERIAL (2) (BEAKER) hemoly zed (test code = 2874) Hand Slitter ID - KEAGAN, CHEST, 1 VIEW, NON [id number] 17:10:00Reason for exam:->PICC tip location verificationShould this be performed at the bedside?->YesCESILIA [facility] GARZAAVERY GregorioBRIBOBBY BUTCHER : 1980 Sex: MFINAL REPORT EXAM: Chest one view COMPARISON: July 07, 2022 Clinical history PICC insertion FINDINGS: The tip of the right arm PICC overlies the cavoatrial junction. The remainder of thetubes and lines are unchanged in position. There is persistent cardiomegaly with improvement in pulmonary edema. There is no evidence of pleural effusion or pneumothorax. The regional osseous structures are unchanged. Signed: Ruby Zee MDReport Verified Date/Time: 07/07/2022 17:10:45 POCT-GLUCOSE [id number] 17:01:26 Test Item Value Reference Range Interpretation Comments POC-GLUCOSE METER 152 mg/dL 70-110 H : TESTED A T [facility] 6720 (BEAKER) (test code = [place], 1538) [address]: Hand Slitter/Techni macrina ID = [id number] for Lorelei oreilly([facility]), Paul [id number] 14:51:00 Test Item Value Reference Range Interpretation Comments MAGNESIUM (BEAKER) (test code = 2.2 mg/dL 1.6-2.6 627) Hand Slitter ID - MARCOBASIC METABOLIC [id number] 14:50:59 Test Item Value Reference Range Interpretation Comments SODIUM (BEAKER) 133 meq/L 136-145 L (test code = 381) POTASSIUM 4.5 meq/L 3.5-5.1 (BEAKER) (test code = 379) CHLORIDE (BEAKER) 101 meq/L 98-107 (test code = 382) CO2 (BEAKER) 21 meq/L 22-29 L (test code = 355) BLOOD UREA 23 mg/dL 7-21 H NITROGEN (BEAKER) (test code = 354) CREATININE 0.85 mg/dL 0.57-1.25 (BEAKER) (test code = 358) GLUCOSE RANDOM 136 mg/dL 70-105 H (BEAKER) (test code = 652) CALCIUM (BEAKER) 9.7 mg/dL 8.4-10.2 (test code = 697) EGFR (BEAKER) 112 Interpretatio n of eGFR (test code = [...] not appl icable for dialysis patien ts Hand Slitter ID - MARCOHEMOGLOBIN AND [id number] 14:21:59 Test Item Value Reference Range Interpretation Comments HEMOGLOBIN (ViraxAKER) (test code = 9.9 GM/DL 13.7-17.5 L 410) HEMATOCRIT (ViraxAKER) (test code = 31.2 % 40.1-51.0 L 411) Hand Slitter ID - 6000LACTIC ACID, [id number] 11:15:55 Test Item Value Reference Range Interpretation Comments LACTATE BLOOD ARTERIAL (2) 1.9 mmol/L 0.5-2.0 ([facility]) (test code = 2874) Hand Slitter ID - MARCOPOCT-GLUCOSE [id number] 10:43:02 Test Item Value Reference Range Interpretation Comments POC-GLUCOSE METER 131 mg/dL 70-110 H : TESTED A T [facility] 6720 ([facility]) (test code = [place], 1538) [address]: Hand Slitter/Techni macrina ID = [id number] for Lorelei oreilly([facility])Paul TACROLIMUS [id number] 09:08:04 Test Item Value Reference Range Interpretation Comments TACROLIMUS BLOOD 3.2 ng/mL 10.0-20.0 L Test perfor med on Nelson (BEAKER) (test code Architec t Immunoassay = 657) system with Chemiluminescen t Microparticle I mmunoassay (CMIA) technolo gy. Hand Slitter ID - ADMINRAD, CHEST, 1 VIEW, NON [id number] 05:43:00Reason for exam:->s/p OHTReason for exam:->lung evalShould this be performed at the bedside?->YesCHI [facility] : 1980 Sex: MFINAL REPORT CLINICAL INDICATION: s/p OHTlung eval Comparison: 07/06/2022 The cardiomediastinal contours are stable. The lung volumes remain low. Bilateral parenchymal opacities are unchanged. There is no pneumothorax. Support lines are stable. Signed: Connie Bonilla Verified Date/Time: 07/07/2022 05:43:09 -GLUCOSE [id number] 05:11:59 Test Item Value Reference Range Interpretation Comments POC-GLUCOSE METER 106 mg/dL 70-110 : TESTED A T [facility] 6720 (BEAKER) (test code [facility], = 1538) [id number]: Hand Slitter/Techni macrina ID = [id number] for Jonathan riddle (contract), Brianne perry HEPATIC FUNCTION [id number] 04:02:24 Test Item Value Reference Range Interpretation Comments TOTAL PROTEIN (BEAKER) (test code = 6.5 gm/dL 6.0-8.3 770) ALBUMIN (BEAKER) (test code = 1145) 3.4 g/dL 3.5-5.0 L BILIRUBIN TOTAL (BEAKER) (test code 0.3 mg/dL 0.2-1.2 = 377) BILIRUBIN DIRECT (BEAKER) (test 0.2 mg/dL 0.1-0.5 code = 706) ALKALINE PHOSPHATASE (BEAKER) (test 46 U/L 40-150 code = 346) AST (SGOT) (BEAKER) (test code = 25 U/L 5-34 353) ALT (SGPT) (BEAKER) (test code = 31 U/L 6-55 347) Hand Slitter ID - [id number] 04:02:23 Test Item Value Reference Range Interpretation Comments PHOSPHORUS (BEAKER) (test code = 3.8 mg/dL 2.3-4.7 604) Hand Slitter ID - [id number] 04:02:22 Test Item Value Reference Range Interpretation Comments MAGNESIUM (BEAKER) (test code = 2.3 mg/dL 1.6-2.6 627) Hand Slitter ID - BVBASIC METABOLIC [id number] 04:02:21 Test Item Value Reference Range Interpretation Comments SODIUM (BEAKER) 133 meq/L 136-145 L (test code = 381) POTASSIUM 4.3 meq/L 3.5-5.1 (BEAKER) (test code = 379) CHLORIDE (BEAKER) 100 meq/L 98-107 (test code = 382) CO2 (BEAKER) 24 meq/L 22-29 (test code = 355) BLOOD UREA 19 mg/dL 7-21 NITROGEN (BEAKER) (test code = 354) CREATININE 0.79 mg/dL 0.57-1.25 (BEAKER) (test code = 358) GLUCOSE RANDOM 120 mg/dL 70-105 H (BEAKER) (test code = 652) CALCIUM (BEAKER) 9.2 mg/dL 8.4-10.2 (test code = 697) EGFR (BEAKER) 114 Interpretatio n of eGFR (test code = mL/min/1.73 values Stage D escription 1092) sq m Result G1 Ana l [...] not appl icable for dialysis patien ts Hand Slitter ID - BVLACTIC ACID, [id number] 03:52:59 Test Item Value Reference Range Interpretation Comments LACTATE BLOOD ARTERIAL (2) 0.8 mmol/L 0.5-2.0 (BEAKER) (test code = 2874) Hand Slitter ID - [id number] 03:50:34 Test Item Value Reference Range Interpretation Comments PROTIME (BEAKER) (test code = 15.9 seconds 11.9-14.2 H 759) INR (BEAKER) (test code = 370) 1.36 <=5.90 PARTIAL THROMBOPLASTIN TIME 24.8 seconds 22.5-36.0 (BEAKER) (test code = 760) RECOMMENDED COUMADIN/WARFARIN INR THERAPY RANGESSTANDARD DOSE: 2.0 - 3.0 Includes: PROPHYLAXIS for venous thrombosis, systemic embolization; TREATMENT for venous thrombosis and/or pulmonary embolus.HIGH RISK: Target INR is 2.5-3.5 for patients with mechanical heart valves.CBC W/PLT COUNT & AUTO [id number] 03:42:08 Test Item Value Reference Range Interpretation Comments WHITE BLOOD CELL COUNT (BEAKER) 15.2 K/ L 3.5-10.5 H (test code = 775) RED BLOOD CELL COUNT (BEAKER) 2.69 M/ L 4.63-6.08 L (test code = 761) HEMOGLOBIN (BEAKER) (test code = 7.9 GM/DL 13.7-17.5 L 410) HEMATOCRIT (BEAKER) (test code = 25.0 % 40.1-51.0 L 411) MEAN CORPUSCULAR VOLUME (BEAKER) 93 fL 79-92 H (test code = 753) MEAN CORPUSCULAR HEMOGLOBIN 29.4 pg 25.7-32.2 (BEAKER) (test code = 751) MEAN CORPUSCULAR HEMOGLOBIN CONC 31.6 GM/DL 32.3-36.5 L (BEAKER) (test code = 752) RED CELL DISTRIBUTION WIDTH 16.6 % 11.6-14.4 H (BEAKER) (test code = 412) PLATELET COUNT (BEAKER) (test 175 K/CU MM 150-450 code = 756) MEAN PLATELET VOLUME (BEAKER) 9.3 fL 9.4-12.4 L (test code = 754) NUCLEATED RED BLOOD CELLS 0 /100 WBC 0-0 (BEAKER) (test code = 413) NEUTROPHILS RELATIVE PERCENT 89 % (BEAKER) (test code = 429) LYMPHOCYTES RELATIVE PERCENT 2 % (BEAKER) (test code = 430) MONOCYTES RELATIVE PERCENT 9 % (BEAKER) (test code = 431) EOSINOPHILS RELATIVE PERCENT 0 % (BEAKER) (test code = 432) BASOPHILS RELATIVE PERCENT 0 % (BEAKER) (test code = 437) NEUTROPHILS ABSOLUTE COUNT 13.54 K/ L 1.78-5.38 H (BEAKER) (test code = 670) LYMPHOCYTES ABSOLUTE COUNT 0.23 K/ L 1.32-3.57 L (BEAKER) (test code = 414) MONOCYTES ABSOLUTE COUNT (BEAKER) 1.30 K/ L 0.30-0.82 H (test code = 415) EOSINOPHILS ABSOLUTE COUNT 0.00 K/ L 0.04-0.54 L (BEAKER) (test code = 416) BASOPHILS ABSOLUTE COUNT (BEAKER) 0.01 K/ L 0.01-0.08 (test code = 417) IMMATURE GRANULOCYTES-RELATIVE 0.90 % 0.00-1.00 PERCENT (BEAKER) (test code = 2801) BLOOD GAS, [id number] 03:41:18 Test Item Value Reference Range Interpretation Comments PH ARTERIAL (BEAKER) (test code = 7.42 7.35-7.45 383) PCO2 ARTERIAL (BEAKER) (test code 42 mm Hg 35-45 = 384) PO2 ARTERIAL (BEAKER) (test code = 171 mm Hg 80-90 H 385) O2 SATURATION ARTERIAL (BEAKER) 99.2 % 96.0-97.0 H (test code = 386) HCO3 ARTERIAL (BEAKER) (test code 26 mmol/L 21-29 = 388) BASE EXCESS ARTERIAL (BEAKER) 1.7 mmol/L -2.0-3.0 (test code = 387) PATIENT TEMPERATURE (BEAKER) (test 37.0 code = 1818) FIO2 (BEAKER) (test code = 1819) 40.0 CALCIUM, [id number] 03:40:37 Test Item Value Reference Range Interpretation Comments CALCIUM IONIZED (BEAKER) (test 1.18 mmol/L 1.12-1.27 code = 698) PH, BLOOD (BEAKER) (test code = 7.39 1810) OXYGEN SATURATION, [id number] 03:40:14 Test Item Value Reference Range Interpretation Comments O2 SATURATION (MEASURED) (BEAKER) 87.9 % (test code = 1455) POCT-GLUCOSE [id number] 00:06:19 Test Item Value Reference Range Interpretation Comments POC-GLUCOSE METER 115 mg/dL 70-110 H : TESTED A T [facility] 6720 (BEAKER) (test code [place], = 1538) [id number]: Hand Slitter/Techni macrina ID = [id number] for Jonathan riddle (contract)Brianne BASIC METABOLIC [id number] 20:17:07 Test Item Value Reference Range Interpretation Comments SODIUM (BEAKER) 136 meq/L 136-145 (test code = 381) POTASSIUM 4.2 meq/L 3.5-5.1 (BEAKER) (test code = 379) CHLORIDE (BEAKER) 100 meq/L 98-107 (test code = 382) CO2 (BEAKER) 26 meq/L 22-29 (test code = 355) BLOOD UREA 18 mg/dL 7-21 NITROGEN (BEAKER) (test code = 354) CREATININE 0.88 mg/dL 0.57-1.25 (BEAKER) (test code = 358) GLUCOSE RANDOM 128 mg/dL 70-105 H (BEAKER) (test code = 652) CALCIUM (BEAKER) 9.3 mg/dL 8.4-10.2 (test code = 697) EGFR (BEAKER) 111 Interpretatio n of eGFR (test code = [...] not appl icable for dialysis patien ts Hand Slitter ID - [id number] 20:13:53 Test Item Value Reference Range Interpretation Comments MAGNESIUM (BEAKER) (test code = 2.7 mg/dL 1.6-2.6 H 627) Hand Slitter ID - TIMOHGB/HCT (H&H) - STAT [id number] 19:34:26 Test Item Value Reference Range Interpretation Comments HEMOGLOBIN (BEAKER) (test code = 9.1 GM/DL 13.0-16.8 L 410) HEMATOCRIT (BEAKER) (test code = 27.0 % 40.0-50.0 L 411) SODIUM NA-STAT [id number] 19:34:25 Test Item Value Reference Range Interpretation Comments SODIUM (BEAKER) (test code = 381) 133 meq/L 136-145 L BLOOD GAS, [id number] 19:34:24 Test Item Value Reference Range Interpretation Comments PH ARTERIAL (BEAKER) (test code = 7.42 7.35-7.45 383) PCO2 ARTERIAL (BEAKER) (test code 40 mm Hg 35-45 = 384) PO2 ARTERIAL (BEAKER) (test code = 149 mm Hg 80-90 H 385) O2 SATURATION ARTERIAL (BEAKER) 98.9 % 96.0-97.0 H (test code = 386) HCO3 ARTERIAL (BEAKER) (test code 26 mmol/L 21-29 = 388) BASE EXCESS ARTERIAL (BEAKER) 1.2 mmol/L -2.0-3.0 (test code = 387) PATIENT TEMPERATURE (BEAKER) (test 38.0 code = 1818) FIO2 (BEAKER) (test code = 1819) 40.0 POTASSIUM-STAT [id number] 19:33:31 Test Item Value Reference Range Interpretation Comments POTASSIUM (BEAKER) (test code = 3.9 meq/L 3.6-5.5 379) GLUCOSE-STAT [id number] 19:33:30 Test Item Value Reference Range Interpretation Comments GLUCOSE RANDOM (BEAKER) (test code 129 mg/dL 70-110 H = 652) POCT-GLUCOSE [id number] 18:38:20 Test Item Value Reference Range Interpretation Comments POC-GLUCOSE METER 137 mg/dL 70-110 H : TESTED A T [facility] 6720 (BEAKER) (test code = [place], 1538) [address]: Hand Slitter/Techni macrina ID = [id number] for Of Julia bolanos BLOOD GAS, [id number] 18:34:04 Test Item Value Reference Range Interpretation Comments PH ARTERIAL (BEAKER) (test code = 7.44 7.35-7.45 383) PCO2 ARTERIAL (BEAKER) (test code 23 mm Hg 35-45 L = 384) PO2 ARTERIAL (BEAKER) (test code 190 mm Hg 80-90 H = 385) O2 SATURATION ARTERIAL (BEAKER) 99.4 % 96.0-97.0 H (test code = 386) HCO3 ARTERIAL (BEAKER) (test code 15 mmol/L 21-29 L = 388) BASE EXCESS ARTERIAL (BEAKER) -8.0 mmol/L -2.0-3.0 L (test code = 387) PATIENT TEMPERATURE (BEAKER) 37.0 (test code = 1818) HGB/HCT (H&H) - STAT [id number] 18:33:32 Test Item Value Reference Range Interpretation Comments HEMOGLOBIN (BEAKER) (test code = 8.6 GM/DL 13.0-16.8 L 410) HEMATOCRIT (BEAKER) (test code = 25.0 % 40.0-50.0 L 411) POTASSIUM-STAT [id number] 18:33:31 Test Item Value Reference Range Interpretation Comments POTASSIUM (BEAKER) (test code = 3.3 meq/L 3.6-5.5 L 379) SODIUM NA-STAT [id number] 18:33:30 Test Item Value Reference Range Interpretation Comments SODIUM (BEAKER) (test code = 381) 134 meq/L 136-145 L BLOOD GAS, [id number] 18:33:29 Test Item Value Reference Range Interpretation Comments PH ARTERIAL (BEAKER) (test code = 7.43 7.35-7.45 383) PCO2 ARTERIAL (BEAKER) (test code 33 mm Hg 35-45 L = 384) PO2 ARTERIAL (BEAKER) (test code 162 mm Hg 80-90 H = 385) O2 SATURATION ARTERIAL (BEAKER) 99.1 % 96.0-97.0 H (test code = 386) HCO3 ARTERIAL (BEAKER) (test code 22 mmol/L 21-29 = 388) BASE EXCESS ARTERIAL (BEAKER) -2.1 mmol/L -2.0-3.0 L (test code = 387) PATIENT TEMPERATURE (BEAKER) 37.0 (test code = 1818) GLUCOSE-STAT [id number] 18:32:45 Test Item Value Reference Range Interpretation Comments GLUCOSE RANDOM (BEAKER) (test code 133 mg/dL 70-110 H = 652) LACTIC ACID, [id number] 16:38:18 Test Item Value Reference Range Interpretation Comments LACTATE BLOOD ARTERIAL (2) 1.5 mmol/L 0.5-2.0 (BEAKER) (test code = 2874) Hand Slitter ID - BVBASIC METABOLIC [id number] 13:44:15 Test Item Value Reference Range Interpretation Comments SODIUM (BEAKER) 140 meq/L 136-145 (test code = 381) POTASSIUM 2.9 meq/L 3.5-5.1 L (BEAKER) (test code = 379) CHLORIDE (BEAKER) 112 meq/L 98-107 H (test code = 382) CO2 (BEAKER) 18 meq/L 22-29 L (test code = 355) BLOOD UREA 15 mg/dL 7-21 NITROGEN (BEAKER) (test code = 354) CREATININE 0.67 mg/dL 0.57-1.25 (BEAKER) (test code = 358) GLUCOSE RANDOM 114 mg/dL 70-105 H (BEAKER) (test code = 652) CALCIUM (BEAKER) 7.3 mg/dL 8.4-10.2 L (test code = 697) EGFR (BEAKER) 119 Interpretatio n of eGFR (test code = mL/min/1.73 values Stage D escription 1092) sq m Result G1 Ana l [...] not appl icable for dialysis patien ts Hand Slitter ID - MARCOOperator ID - [id number] 13:08:44 Test Item Value Reference Range Interpretation Comments MAGNESIUM (BEAKER) (test code = 1.7 mg/dL 1.6-2.6 627) Hand Slitter ID - KEAGAN, CHEST, 1 VIEW, NON [id number] 13:02:00Reason for exam:->PA cath manipulationShould this be performed at the bedside?->Yes [facility] 1980 Sex: MFINAL REPORT CHEST ONE VIEW HISTORY: Pulmonary arterial catheter manipulation COMPARISON: 0043 hours on 07/06/2022 FINDINGS: Single portable AP examination of the chest was performed. Pulmonary arterial catheter tip is in the region of the right pulmonary artery. Left-sided chest tubes are present. No pneumothorax is identified. Mild atelectatic changes are noted in the left perihilar region and at the bilateral lung bases, unchanged. No pleural effusions. The cardiac shadow is mildlyenlarged, unchanged. Signed: Sera Lopez Verified Date/Time: 07/06/2022 13:02:04 Reading Location: [address] Transitional Reading Room Electronically signed by: SERA LOPEZ MD on 023 01:02 PMPOCT-GLUCOSE [id number] 12:25:19 Test Item Value Reference Range Interpretation Comments POC-GLUCOSE METER 129 mg/dL 70-110 H : TESTED A T [facility] 6720 (simpleFLOORS) (test code = [place], 1538) [address]: Hand Slitter/Techni macrina ID = [id number] for Of Julia bolanos LACTIC ACID, [id number] 11:28:12 Test Item Value Reference Range Interpretation Comments LACTATE BLOOD ARTERIAL (2) 1.0 mmol/L 0.5-2.0 (simpleFLOORS) (test code = 2874) Hand Slitter ID - MARCOTACROLIMUS [id number] 09:05:39 Test Item Value Reference Range Interpretation Comments TACROLIMUS BLOOD 2.5 ng/mL 10.0-20.0 L Test perfor med on Nelson (simpleFLOORS) (test code Architec t Immunoassay = 657) system with Chemiluminescen t Microparticle I mmunoassay (CMIA) technolo gy. Hand Slitter ID - ADMINVANCOMYCIN LEVEL, [id number] 09:00:31 Test Item Value Reference Range Interpretation Comments VANCOMYCIN TROUGH (BEAKER) (test 10.4 ug/mL 10.0-20.0 code = 522) Hand Slitter ID - DIONNED, CHEST, 1 VIEW, NON [id number] 07:13:00Reason for exam:->s/p OHTReason for exam:->lung evalShould this be performed at the bedside?->YesCH[facility] : 1980 Sex: MFINAL REPORT RAD, CHEST, 1 VIEW, NON DEPT INDICATION: s/p OHTlung eval COMPARISON: Prior day's exam FINDINGS: Portable frontal view of the chest. IMPRESSION: Support Lines: [place] tip overlies the pulmonary outflow tract. Left-sided chest tubes are unchanged. Mediastinal drains persist. Recent sternotomy with skin sandrita. Lungs and pleura: Hazy bilateral interstitial opacities areunchanged, likely representing mild interstitial edema. No significant pneumothorax. Heart and mediastinum: Stable contours. Stable surgical changes. Additional findings: None. Signed: Natalee Orta Verified Date/Time: 07/06/2022 07:13:57 POCT-GLUCOSE [id number] 05:15:55 Test Item Value Reference Range Interpretation Comments POC-GLUCOSE METER 131 mg/dL 70-110 H : TESTED A T [facility] [address] (BEAKER) (test code = [place], 1538) [address]: Hand Slitter/Techni macrina ID = [id number] for SANDRA ROMEO OXYGEN SATURATION, [id number] 04:01:19 Test Item Value Reference Range Interpretation Comments O2 SATURATION (MEASURED) (BEAKER) 87.1 % (test code = 1455) BLOOD GAS, [id number] 03:51:11 Test Item Value Reference Range Interpretation Comments PH ARTERIAL (BEAKER) (test code = 7.42 7.35-7.45 383) PCO2 ARTERIAL (BEAKER) (test code 38 mm Hg 35-45 = 384) PO2 ARTERIAL (BEAKER) (test code 79 mm Hg 80-90 L = 385) O2 SATURATION ARTERIAL (BEAKER) 96.0 % 96.0-97.0 (test code = 386) HCO3 ARTERIAL (BEAKER) (test code 24 mmol/L 21-29 = 388) BASE EXCESS ARTERIAL (BEAKER) -0.5 mmol/L -2.0-3.0 (test code = 387) PATIENT TEMPERATURE (BEAKER) 37.0 (test code = 1818) FIO2 (BEAKER) (test code = 1819) 21.0 CALCIUM, [id number] 03:51:06 Test Item Value Reference Range Interpretation Comments CALCIUM IONIZED (BEAKER) (test 1.19 mmol/L 1.12-1.27 code = 698) PH, BLOOD (BEAKER) (test code = 7.42 1810) HEPATIC FUNCTION [id number] 03:49:35 Test Item Value Reference Range Interpretation Comments TOTAL PROTEIN (BEAKER) (test code = 6.4 gm/dL 6.0-8.3 770) ALBUMIN (BEAKER) (test code = 1145) 3.4 g/dL 3.5-5.0 L BILIRUBIN TOTAL (BEAKER) (test code 0.4 mg/dL 0.2-1.2 = 377) BILIRUBIN DIRECT (BEAKER) (test 0.2 mg/dL 0.1-0.5 code = 706) ALKALINE PHOSPHATASE (BEAKER) (test 45 U/L 40-150 code = 346) AST (SGOT) (BEAKER) (test code = 44 U/L 5-34 H 353) ALT (SGPT) (BEAKER) (test code = 30 U/L 6-55 347) Hand Slitter ID - [id number] 03:49:34 Test Item Value Reference Range Interpretation Comments PHOSPHORUS (BEAKER) (test code = 3.7 mg/dL 2.3-4.7 604) Hand Slitter ID - [id number] 03:49:33 Test Item Value Reference Range Interpretation Comments MAGNESIUM (BEAKER) (test code = 2.2 mg/dL 1.6-2.6 627) Hand Slitter ID - MARCOBASIC METABOLIC [id number] 03:49:32 Test Item Value Reference Range Interpretation Comments SODIUM (BEAKER) 139 meq/L 136-145 (test code = 381) POTASSIUM 4.0 meq/L 3.5-5.1 (BEAKER) (test code = 379) CHLORIDE (BEAKER) 107 meq/L 98-107 (test code = 382) CO2 (BEAKER) 21 meq/L 22-29 L (test code = 355) BLOOD UREA 17 mg/dL 7-21 NITROGEN (BEAKER) (test code = 354) CREATININE 0.80 mg/dL 0.57-1.25 (BEAKER) (test code = 358) GLUCOSE RANDOM 128 mg/dL 70-105 H (BEAKER) (test code = 652) CALCIUM (BEAKER) 9.2 mg/dL 8.4-10.2 (test code = 697) EGFR (BEAKER) 114 Interpretatio n of eGFR (test code = [...] not appl icable for dialysis patien ts Hand Slitter ID - MARCOLACTIC ACID, [id number] 03:45:46 Test Item Value Reference Range Interpretation Comments LACTATE BLOOD ARTERIAL (2) 1.2 mmol/L 0.5-2.0 (BEAKER) (test code = 2874) Hand Slitter ID - [id number] 03:44:42 Test Item Value Reference Range Interpretation Comments PROTIME (BEAKER) (test code = 16.2 seconds 11.9-14.2 H 759) INR (BEAKER) (test code = 370) 1.38 <=5.90 PARTIAL THROMBOPLASTIN TIME 30.8 seconds 22.5-36.0 (BEAKER) (test code = 760) RECOMMENDED COUMADIN/WARFARIN INR THERAPY RANGESSTANDARD DOSE: 2.0 - 3.0 Includes: PROPHYLAXIS for venous thrombosis, systemic embolization; TREATMENT for venous thrombosis and/or pulmonary embolus.HIGH RISK: Target INR is 2.5-3.5 for patients with mechanical heart valves.CBC W/PLT COUNT & AUTO [id number] 03:29:59 Test Item Value Reference Range Interpretation Comments WHITE BLOOD CELL COUNT (BEAKER) 16.6 K/ L 3.5-10.5 H (test code = 775) RED BLOOD CELL COUNT (BEAKER) 2.88 M/ L 4.63-6.08 L (test code = 761) HEMOGLOBIN (BEAKER) (test code = 8.4 GM/DL 13.7-17.5 L 410) HEMATOCRIT (BEAKER) (test code = 26.0 % 40.1-51.0 L 411) MEAN CORPUSCULAR VOLUME (BEAKER) 90 fL 79-92 (test code = 753) MEAN CORPUSCULAR HEMOGLOBIN 29.2 pg 25.7-32.2 (BEAKER) (test code = 751) MEAN CORPUSCULAR HEMOGLOBIN CONC 32.3 GM/DL 32.3-36.5 (BEAKER) (test code = 752) RED CELL DISTRIBUTION WIDTH 17.2 % 11.6-14.4 H (BEAKER) (test code = 412) PLATELET COUNT (BEAKER) (test 186 K/CU MM 150-450 code = 756) MEAN PLATELET VOLUME (BEAKER) 9.2 fL 9.4-12.4 L (test code = 754) NUCLEATED RED BLOOD CELLS 0 /100 WBC 0-0 (BEAKER) (test code = 413) NEUTROPHILS RELATIVE PERCENT 92 % (BEAKER) (test code = 429) LYMPHOCYTES RELATIVE PERCENT 2 % (BEAKER) (test code = 430) MONOCYTES RELATIVE PERCENT 6 % (BEAKER) (test code = 431) EOSINOPHILS RELATIVE PERCENT 0 % (BEAKER) (test code = 432) BASOPHILS RELATIVE PERCENT 0 % (BEAKER) (test code = 437) NEUTROPHILS ABSOLUTE COUNT 15.18 K/ L 1.78-5.38 H (BEAKER) (test code = 670) LYMPHOCYTES ABSOLUTE COUNT 0.34 K/ L 1.32-3.57 L (BEAKER) (test code = 414) MONOCYTES ABSOLUTE COUNT (BEAKER) 0.98 K/ L 0.30-0.82 H (test code = 415) EOSINOPHILS ABSOLUTE COUNT 0.00 K/ L 0.04-0.54 L (BEAKER) (test code = 416) BASOPHILS ABSOLUTE COUNT (BEAKER) 0.02 K/ L 0.01-0.08 (test code = 417) IMMATURE GRANULOCYTES-RELATIVE 0.50 % 0.00-1.00 PERCENT (BEAKER) (test code = 2801) POCT-GLUCOSE [id number] 23:06:35 Test Item Value Reference Range Interpretation Comments POC-GLUCOSE METER 147 mg/dL 70-110 H : TESTED A T [facility] 6720 (BEAKER) (test code = [place], 1538) [address]: Hand Slitter/Techni macrina ID = [id number] for SANDRA ROMEO LACTIC ACID, [id number] 22:15:47 Test Item Value Reference Range Interpretation Comments LACTATE BLOOD ARTERIAL (2) 1.0 mmol/L 0.5-2.0 (BEAKER) (test code = 2874) Hand Slitter ID - BSHGB/HCT (H&H) - STAT [id number] 21:58:24 Test Item Value Reference Range Interpretation Comments HEMOGLOBIN (BEAKER) (test code = 9.1 GM/DL 13.0-16.8 L 410) HEMATOCRIT (BEAKER) (test code = 27.0 % 40.0-50.0 L 411) BLOOD GAS, [id number] 21:58:23 Test Item Value Reference Range Interpretation Comments PH ARTERIAL (BEAKER) (test code = 7.48 7.35-7.45 H 383) PCO2 ARTERIAL (BEAKER) (test code 30 mm Hg 35-45 L = 384) PO2 ARTERIAL (BEAKER) (test code 103 mm Hg 80-90 H = 385) O2 SATURATION ARTERIAL (BEAKER) 98.2 % 96.0-97.0 H (test code = 386) HCO3 ARTERIAL (BEAKER) (test code 23 mmol/L 21-29 = 388) BASE EXCESS ARTERIAL (BEAKER) -0.7 mmol/L -2.0-3.0 (test code = 387) PATIENT TEMPERATURE (BEAKER) 36.2 (test code = 1818) FIO2 (BEAKER) (test code = 1819) 28.0 OXYGEN SATURATION, [id number] 21:57:56 Test Item Value Reference Range Interpretation Comments O2 SATURATION (MEASURED) (BEAKER) 69.3 % (test code = 1455) POTASSIUM-STAT [id number] 21:57:55 Test Item Value Reference Range Interpretation Comments POTASSIUM (BEAKER) (test code = 3.9 meq/L 3.6-5.5 379) SODIUM NA-STAT [id number] 21:57:54 Test Item Value Reference Range Interpretation Comments SODIUM (BEAKER) (test code = 381) 138 meq/L 136-145 GLUCOSE-STAT [id number] 21:57:48 Test Item Value Reference Range Interpretation Comments GLUCOSE RANDOM (BEAKER) (test code 132 mg/dL 70-110 H = 652) [id number] 21:45:51 Test Item Value Reference Range Interpretation Comments ACTIVATED CLOTTING TIME 95 sec : 74 -137 seconds, (BEAKER) (test code = Baselkaren ne: TESTED AT 441) [address], [facility] 30: Hand Slitter/Techni macrina ID = [id number] for GA LION, YENI [id number] 21:45:50 Test Item Value Reference Range Interpretation Comments ACTIVATED CLOTTING TIME 582 sec : 74 -137 seconds, (BEAKER) (test code = Baseli ne: TESTED AT 441) [address], 770 30: Hand Slitter/Techni macrina ID = [id number] for GA LION, YENI [id number] 21:45:49 Test Item Value Reference Range Interpretation Comments ACTIVATED CLOTTING TIME 648 sec : 74 -137 seconds, (BEAKER) (test code = Baseli ne: TESTED AT 441) [address], 770 30: Hand Slitter/Techni macrina ID = [id number] for GA LION, YENI [id number] 21:45:27 Test Item Value Reference Range Interpretation Comments ACTIVATED CLOTTING TIME 528 sec : 74 -137 seconds, (BEAKER) (test code = Baseli ne: TESTED AT 441) [address], [address]70 30: Hand Slitter/Techni macrina ID = [id number] for GA LION, YENI [id number] 21:45:26 Test Item Value Reference Range Interpretation Comments ACTIVATED CLOTTING TIME 744 sec : 74 -137 seconds, (BEAKER) (test code = Baseli ne: TESTED AT 441) [address], [address]70 30: Hand Slitter/Techni macrina ID = [id number] for GA LION, YENI [id number] 21:45:25 Test Item Value Reference Range Interpretation Comments ACTIVATED CLOTTING TIME 474 sec : 74 -137 seconds, (BEAKER) (test code = Baseli ne: TESTED AT 441) [address], 770 30: Hand Slitter/Techni macrina ID = [id number] for GA LION, YENI [id number] 21:45:24 Test Item Value Reference Range Interpretation Comments ACTIVATED CLOTTING TIME 335 sec : 74 -137 seconds, (BEAKER) (test code = Baseli ne: TESTED AT 441) [address], [facility] 30: Hand Slitter/Techni macrina ID = [id number] for GA LION, YENI [id number] 21:45:23 Test Item Value Reference Range Interpretation Comments ACTIVATED CLOTTING TIME 149 sec : 74 -137 seconds, (BEAKER) (test code = Baseli ne: TESTED AT 441) [address], [facility] 30: Hand Slitter/Techni macrina ID = [id number] for GA LION, YENI [id number] 20:50:20 Test Item Value Reference Range Interpretation Comments MAGNESIUM (BEAKER) (test code = 2.2 mg/dL 1.6-2.6 627) Hand Slitter ID - BSBASIC METABOLIC [id number] 20:50:19 Test Item Value Reference Range Interpretation Comments SODIUM (BEAKER) 141 meq/L 136-145 (test code = 381) POTASSIUM 3.9 meq/L 3.5-5.1 (BEAKER) (test code = 379) CHLORIDE (BEAKER) 108 meq/L 98-107 H (test code = 382) CO2 (BEAKER) 22 meq/L 22-29 (test code = 355) BLOOD UREA 15 mg/dL 7-21 NITROGEN (BEAKER) (test code = 354) CREATININE 0.85 mg/dL 0.57-1.25 (BEAKER) (test code = 358) GLUCOSE RANDOM 129 mg/dL 70-105 H (BEAKER) (test code = 652) CALCIUM (BEAKER) 9.2 mg/dL 8.4-10.2 (test code = 697) EGFR (BEAKER) 112 Interpretatio n of eGFR (test code = [...] not appl icable for dialysis patien ts Hand Slitter ID - BSHGB/HCT (H&H) - STAT [id number] 17:13:45 Test Item Value Reference Range Interpretation Comments HEMOGLOBIN (BEAKER) (test code = 9.4 GM/DL 13.0-16.8 L 410) HEMATOCRIT (BEAKER) (test code = 28.0 % 40.0-50.0 L 411) BLOOD GAS, [id number] 17:13:44 Test Item Value Reference Range Interpretation Comments PH ARTERIAL (BEAKER) (test code = 7.44 7.35-7.45 383) PCO2 ARTERIAL (BEAKER) (test code 37 mm Hg 35-45 = 384) PO2 ARTERIAL (BEAKER) (test code = 148 mm Hg 80-90 H 385) O2 SATURATION ARTERIAL (BEAKER) 99.0 % 96.0-97.0 H (test code = 386) HCO3 ARTERIAL (BEAKER) (test code 25 mmol/L 21-29 = 388) BASE EXCESS ARTERIAL (BEAKER) 0.6 mmol/L -2.0-3.0 (test code = 387) PATIENT TEMPERATURE (BEAKER) (test 37.0 code = 1818) FIO2 (BEAKER) (test code = 1819) 36.0 POTASSIUM-STAT [id number] 17:13:28 Test Item Value Reference Range Interpretation Comments POTASSIUM (BEAKER) (test code = 3.8 meq/L 3.6-5.5 379) GLUCOSE-STAT [id number] 17:13:27 Test Item Value Reference Range Interpretation Comments GLUCOSE RANDOM (BEAKER) (test code 134 mg/dL 70-110 H = 652) SODIUM NA-STAT [id number] 17:13:26 Test Item Value Reference Range Interpretation Comments SODIUM (BEAKER) (test code = 381) 139 meq/L 136-145 LACTIC ACID, [id number] 15:33:04 Test Item Value Reference Range Interpretation Comments LACTATE BLOOD ARTERIAL (2) 1.4 mmol/L 0.5-2.0 (BEAKER) (test code = 2874) Hand Slitter ID - BSHGB/HCT (H&H) - STAT [id number] 15:21:20 Test Item Value Reference Range Interpretation Comments HEMOGLOBIN (BEAKER) (test code = 9.8 GM/DL 13.0-16.8 L 410) HEMATOCRIT (BEAKER) (test code = 29.0 % 40.0-50.0 L 411) BLOOD GAS, [id number] 15:21:19 Test Item Value Reference Range Interpretation Comments PH ARTERIAL (BEAKER) (test code = 7.43 7.35-7.45 383) PCO2 ARTERIAL (BEAKER) (test code 40 mm Hg 35-45 = 384) PO2 ARTERIAL (BEAKER) (test code = 148 mm Hg 80-90 H 385) O2 SATURATION ARTERIAL (BEAKER) 98.9 % 96.0-97.0 H (test code = 386) HCO3 ARTERIAL (BEAKER) (test code 26 mmol/L -29 = 388) BASE EXCESS ARTERIAL (BEAKER) 1.4 mmol/L -2.0-3.0 (test code = 387) PATIENT TEMPERATURE (BEAKER) (test 37.7 code = 1818) FIO2 (BEAKER) (test code = 1819) 40.0 POTASSIUM-STAT [id number] 15:20:36 Test Item Value Reference Range Interpretation Comments POTASSIUM (BEAKER) (test code = 4.0 meq/L 3.6-5.5 379) SODIUM NA-STAT [id number] 15:20:35 Test Item Value Reference Range Interpretation Comments SODIUM (BEAKER) (test code = 381) 140 meq/L 136-145 GLUCOSE-STAT [id number] 15:20:34 Test Item Value Reference Range Interpretation Comments GLUCOSE RANDOM (BEAKER) (test code 138 mg/dL 70-110 H = 652) HEPATITIS C PCR, [id number] 14:53:28 Test Item Value Reference Range Interpretation Comments HCV RESULT COMPONENT HCV RNA not detected HCV RNA not detected (BEAKER) (test code = 2699) [id number] 11:52:29 Test Item Value Reference Range Interpretation Comments MAGNESIUM (BEAKER) (test code = 2.3 mg/dL 1.6-2.6 627) Hand Slitter ID - AAHAMIDBASIC METABOLIC [id number] 11:52:28 Test Item Value Reference Range Interpretation Comments SODIUM (BEAKER) 143 meq/L 136-145 (test code = 381) POTASSIUM 4.1 meq/L 3.5-5.1 (BEAKER) (test code = 379) CHLORIDE (BEAKER) 109 meq/L 98-107 H (test code = 382) CO2 (BEAKER) 24 meq/L 22-29 (test code = 355) BLOOD UREA 11 mg/dL 7-21 NITROGEN (BEAKER) (test code = 354) CREATININE 0.93 mg/dL 0.57-1.25 (BEAKER) (test code = 358) GLUCOSE RANDOM 156 mg/dL 70-105 H (BEAKER) (test code = 652) CALCIUM (BEAKER) 9.1 mg/dL 8.4-10.2 (test code = 697) EGFR (BEAKER) 106 Interpretatio n of eGFR (test code = [...] not appl icable for dialysis patien ts Hand Slitter ID - JOSELACTIC ACID, [id number] 11:22:03 Test Item Value Reference Range Interpretation Comments LACTATE BLOOD ARTERIAL (2) 1.9 mmol/L 0.5-2.0 (BEAKER) (test code = 2874) Hand Slitter ID - MYNORJP, CHEST, 1 VIEW, NON [id number] 10:17:00Reason for exam:->s/p OHTReason for exam:->lung evalShould this be performed at the bedside?->[facility] : 1980 Sex: MFINAL REPORT CHEST ONE VIEW HISTORY: Status post OHT COMPARISON: 07/04/2022 FINDINGS:Single portable AP examination of the chest was performed. Right jugular pulmonary arterial cathetertip remains in the right pulmonary artery region. The heart shadow is normal in size. Sternotomy wires are present. Endotracheal tube tip is approximately 2 cm proximal to the [place]. Left-sided chest tubes are present, without evidence of a pneumothorax. Nasogastric tube passes below the diaphragm, with the tip not imaged. Mild atelectatic changes in the lower right lung have improved since the prior study. Minimal subsegmental atelectasis in the left perihilar region. Signed: Sera Lopez MDReportVerified Date/Time: 07/05/2022 10:17:39 OXYGEN SATURATION, [id number] 09:32:40 Test Item Value Reference Range Interpretation Comments O2 SATURATION (MEASURED) (BEAKER) 80.4 % (test code = 1455) [id number] 06:41:31 Test Item Value Reference Range Interpretation Comments MAGNESIUM (BEAKER) (test code = 2.5 mg/dL 1.6-2.6 627) Hand Slitter ID - MMLACTIC ACID, [id number] 06:26:56 Test Item Value Reference Range Interpretation Comments LACTATE BLOOD ARTERIAL (2) 2.1 mmol/L 0.5-2.0 H (BEAKER) (test code = 2874) Hand Slitter ID - ADMINBLOOD GAS, [id number] 06:11:54 Test Item Value Reference Range Interpretation Comments PH ARTERIAL (BEAKER) (test code = 7.47 7.35-7.45 H 383) PCO2 ARTERIAL (BEAKER) (test code 37 mm Hg 35-45 = 384) PO2 ARTERIAL (BEAKER) (test code = 156 mm Hg 80-90 H 385) O2 SATURATION ARTERIAL (BEAKER) 99.1 % 96.0-97.0 H (test code = 386) HCO3 ARTERIAL (BEAKER) (test code 26 mmol/L 21-29 = 388) BASE EXCESS ARTERIAL (BEAKER) 2.5 mmol/L -2.0-3.0 (test code = 387) PATIENT TEMPERATURE (BEAKER) (test 36.5 code = 1818) FIO2 (BEAKER) (test code = 1819) 40.0 HGB/HCT (H&H) - STAT [id number] 06:11:54 Test Item Value Reference Range Interpretation Comments HEMOGLOBIN (BEAKER) (test code = 9.7 GM/DL 13.0-16.8 L 410) HEMATOCRIT (BEAKER) (test code = 29.0 % 40.0-50.0 L 411) CALCIUM, [id number] 06:10:58 Test Item Value Reference Range Interpretation Comments CALCIUM IONIZED (BEAKER) (test 1.22 mmol/L 1.12-1.27 code = 698) PH, BLOOD (BEAKER) (test code = 7.46 1810) POTASSIUM-STAT [id number] 06:10:52 Test Item Value Reference Range Interpretation Comments POTASSIUM (BEAKER) (test code = 4.0 meq/L 3.6-5.5 379) GLUCOSE-STAT [id number] 06:10:51 Test Item Value Reference Range Interpretation Comments GLUCOSE RANDOM (BEAKER) (test code 150 mg/dL 70-110 H = 652) SODIUM NA-STAT [id number] 06:10:51 Test Item Value Reference Range Interpretation Comments SODIUM (BEAKER) (test code = 381) 143 meq/L 136-145 POCT-GLUCOSE [id number] 05:39:57 Test Item Value Reference Range Interpretation Comments POC-GLUCOSE METER 139 mg/dL 70-110 H : TESTED A T [facility] 6720 (BEAKER) (test code = [place], 1538) [address]: Hand Slitter/Techni macrina ID = [id number] for THELMA ONTIVEROS [id number] 03:54:36 Test Item Value Reference Range Interpretation Comments PHOSPHORUS (BEAKER) (test code = 4.7 mg/dL 2.3-4.7 604) Hand Slitter ID - MMHEPATIC FUNCTION [id number] 03:54:36 Test Item Value Reference Range Interpretation Comments TOTAL PROTEIN (BEAKER) (test code = 6.7 gm/dL 6.0-8.3 770) ALBUMIN (BEAKER) (test code = 1145) 3.6 g/dL 3.5-5.0 BILIRUBIN TOTAL (BEAKER) (test code 0.6 mg/dL 0.2-1.2 = 377) BILIRUBIN DIRECT (BEAKER) (test 0.3 mg/dL 0.1-0.5 code = 706) ALKALINE PHOSPHATASE (BEAKER) (test 54 U/L 40-150 code = 346) AST (SGOT) (BEAKER) (test code = 84 U/L 5-34 H 353) ALT (SGPT) (BEAKER) (test code = 37 U/L 6-55 347) Hand Slitter ID - MMBASIC METABOLIC [id number] 03:54:35 Test Item Value Reference Range Interpretation Comments SODIUM (BEAKER) 144 meq/L 136-145 (test code = 381) POTASSIUM 4.2 meq/L 3.5-5.1 (BEAKER) (test code = 379) CHLORIDE (BEAKER) 107 meq/L 98-107 (test code = 382) CO2 (BEAKER) 24 meq/L 22-29 (test code = 355) BLOOD UREA 12 mg/dL 7-21 NITROGEN (BEAKER) (test code = 354) CREATININE 1.09 mg/dL 0.57-1.25 (BEAKER) (test code = 358) GLUCOSE RANDOM 147 mg/dL 70-105 H (BEAKER) (test code = 652) CALCIUM (BEAKER) 10.2 mg/dL 8.4-10.2 (test code = 697) EGFR (BEAKER) 88 Interpretatio n of eGFR (test code = [...] not appl icable for dialysis patien ts Hand Slitter ID - [id number] 03:54:35 Test Item Value Reference Range Interpretation Comments MAGNESIUM (BEAKER) (test code = 1.9 mg/dL 1.6-2.6 627) Hand Slitter ID - [id number] 03:04:50 Test Item Value Reference Range Interpretation Comments PROTIME (BEAKER) (test code = 15.2 seconds 11.9-14.2 H 759) INR (BEAKER) (test code = 370) 1.28 <=5.90 PARTIAL THROMBOPLASTIN TIME 27.6 seconds 22.5-36.0 (BEAKER) (test code = 760) RECOMMENDED COUMADIN/WARFARIN INR THERAPY RANGESSTANDARD DOSE: 2.0 - 3.0 Includes: PROPHYLAXIS for venous thrombosis, systemic embolization; TREATMENT for venous thrombosis and/or pulmonary embolus.HIGH RISK: Target INR is 2.5-3.5 for patients with mechanical heart valves.CALCIUM, [id number] 02:55:17 Test Item Value Reference Range Interpretation Comments CALCIUM IONIZED (BEAKER) (test 1.16 mmol/L 1.12-1.27 code = 698) PH, BLOOD (BEAKER) (test code = 7.43 1810) OXYGEN SATURATION, [id number] 02:55:16 Test Item Value Reference Range Interpretation Comments O2 SATURATION (MEASURED) (BEAKER) 85.5 % (test code = 1455) BLOOD GAS, [id number] 02:52:11 Test Item Value Reference Range Interpretation Comments PH ARTERIAL (BEAKER) (test code = 7.47 7.35-7.45 H 383) PCO2 ARTERIAL (BEAKER) (test code 35 mm Hg 35-45 = 384) PO2 ARTERIAL (BEAKER) (test code = 140 mm Hg 80-90 H 385) O2 SATURATION ARTERIAL (BEAKER) 99.0 % 96.0-97.0 H (test code = 386) HCO3 ARTERIAL (BEAKER) (test code 25 mmol/L 21-29 = 388) BASE EXCESS ARTERIAL (BEAKER) 1.2 mmol/L -2.0-3.0 (test code = 387) PATIENT TEMPERATURE (BEAKER) (test 36.6 code = 1818) FIO2 (BEAKER) (test code = 1819) 40.0 LACTIC ACID, [id number] 02:51:26 Test Item Value Reference Range Interpretation Comments LACTATE BLOOD ARTERIAL (2) 1.8 mmol/L 0.5-2.0 (BEAKER) (test code = 2874) Hand Slitter ID - ADMINCBC W/PLT COUNT & AUTO [id number] 02:44:45 Test Item Value Reference Range Interpretation Comments WHITE BLOOD CELL COUNT (BEAKER) 14.1 K/ L 3.5-10.5 H (test code = 775) RED BLOOD CELL COUNT (BEAKER) 3.07 M/ L 4.63-6.08 L (test code = 761) HEMOGLOBIN (BEAKER) (test code = 9.0 GM/DL 13.7-17.5 L 410) HEMATOCRIT (BEAKER) (test code = 27.6 % 40.1-51.0 L 411) MEAN CORPUSCULAR VOLUME (BEAKER) 90 fL 79-92 (test code = 753) MEAN CORPUSCULAR HEMOGLOBIN 29.3 pg 25.7-32.2 (BEAKER) (test code = 751) MEAN CORPUSCULAR HEMOGLOBIN CONC 32.6 GM/DL 32.3-36.5 (BEAKER) (test code = 752) RED CELL DISTRIBUTION WIDTH 16.6 % 11.6-14.4 H (BEAKER) (test code = 412) PLATELET COUNT (BEAKER) (test 215 K/CU MM 150-450 code = 756) MEAN PLATELET VOLUME (BEAKER) 9.3 fL 9.4-12.4 L (test code = 754) NUCLEATED RED BLOOD CELLS 0 /100 WBC 0-0 (BEAKER) (test code = 413) NEUTROPHILS RELATIVE PERCENT 92 % (BEAKER) (test code = 429) LYMPHOCYTES RELATIVE PERCENT 3 % (BEAKER) (test code = 430) MONOCYTES RELATIVE PERCENT 5 % (BEAKER) (test code = 431) EOSINOPHILS RELATIVE PERCENT 0 % (BEAKER) (test code = 432) BASOPHILS RELATIVE PERCENT 0 % (BEAKER) (test code = 437) NEUTROPHILS ABSOLUTE COUNT 12.87 K/ L 1.78-5.38 H (BEAKER) (test code = 670) LYMPHOCYTES ABSOLUTE COUNT 0.41 K/ L 1.32-3.57 L (BEAKER) (test code = 414) MONOCYTES ABSOLUTE COUNT (BEAKER) 0.66 K/ L 0.30-0.82 (test code = 415) EOSINOPHILS ABSOLUTE COUNT 0.00 K/ L 0.04-0.54 L (BEAKER) (test code = 416) BASOPHILS ABSOLUTE COUNT (BEAKER) 0.02 K/ L 0.01-0.08 (test code = 417) IMMATURE GRANULOCYTES-RELATIVE 0.70 % 0.00-1.00 PERCENT (BEAKER) (test code = 2801) LACTIC ACID, [id number] 01:23:39 Test Item Value Reference Range Interpretation Comments LACTATE BLOOD ARTERIAL (2) 2.6 mmol/L 0.5-2.0 H (BEAKER) (test code = 2874) Hand Slitter ID - ADMINRAD, ABDOMEN/KUB, 1 VIEW [id number] 01:19:00Reason for exam:->ngt placement [facility] : 1980 Sex: MFINAL REPORT CLINICAL HISTORY: ngt placement COMPARISON: None. FINDINGS: Two supine images of the abdomen are submitted. An enteric tube tip overlies the expected position of the mid gastric lumen. The abdominal bowel gas pattern is nonspecific but grossly unobstructed. No abnormal calcification is noted. There is no acute bony abnormality. Signed: Connie Bonilla Verified Date/Time: 07/05/2022 01:19:57 POCT-GLUCOSE [id number] 00:18:08 Test Item Value Reference Range Interpretation Comments POC-GLUCOSE METER 132 mg/dL 70-110 H : TESTED A T [facility] 6720 (BEAKER) (test code = FILEMON Fuentes [facility], 1538) [address]: Hand Slitter/Techni macrina ID = [id number] for THELMA ONTIVEROS BLOOD GAS, [id number] 00:13:54 Test Item Value Reference Range Interpretation Comments PH ARTERIAL (BEAKER) (test code = 7.45 7.35-7.45 383) PCO2 ARTERIAL (BEAKER) (test code 32 mm Hg 35-45 L = 384) PO2 ARTERIAL (BEAKER) (test code 126 mm Hg 80-90 H = 385) O2 SATURATION ARTERIAL (BEAKER) 98.7 % 96.0-97.0 H (test code = 386) HCO3 ARTERIAL (BEAKER) (test code 22 mmol/L 21-29 = 388) BASE EXCESS ARTERIAL (BEAKER) -1.5 mmol/L -2.0-3.0 (test code = 387) PATIENT TEMPERATURE (BEAKER) 37.2 (test code = 1818) FIO2 (BEAKER) (test code = 1819) 40.0 HGB/HCT (H&H) - STAT [id number] 00:13:48 Test Item Value Reference Range Interpretation Comments HEMOGLOBIN (BEAKER) (test code = 9.5 GM/DL 13.0-16.8 L 410) HEMATOCRIT (BEAKER) (test code = 28.0 % 40.0-50.0 L 411) POTASSIUM-STAT [id number] 00:13:18 Test Item Value Reference Range Interpretation Comments POTASSIUM (BEAKER) (test code = 4.5 meq/L 3.6-5.5 379) GLUCOSE-STAT [id number] 00:13:17 Test Item Value Reference Range Interpretation Comments GLUCOSE RANDOM (BEAKER) (test code 146 mg/dL 70-110 H = 652) SODIUM NA-STAT [id number] 00:13:17 Test Item Value Reference Range Interpretation Comments SODIUM (BEAKER) (test code = 381) 138 meq/L 136-145 [id number] 23:39:48 Test Item Value Reference Range Interpretation Comments PHOSPHORUS (BEAKER) (test code = 3.8 mg/dL 2.3-4.7 604) Hand Slitter ID - ADMINBASIC METABOLIC [id number] 23:39:47 Test Item Value Reference Range Interpretation Comments SODIUM (BEAKER) 139 meq/L 136-145 (test code = 381) POTASSIUM 4.7 meq/L 3.5-5.1 (BEAKER) (test code = 379) CHLORIDE (BEAKER) 106 meq/L 98-107 (test code = 382) CO2 (BEAKER) 20 meq/L 22-29 L (test code = 355) BLOOD UREA 12 mg/dL 7-21 NITROGEN (BEAKER) (test code = 354) CREATININE 1.14 mg/dL 0.57-1.25 (BEAKER) (test code = 358) GLUCOSE RANDOM 137 mg/dL 70-105 H (BEAKER) (test code = 652) CALCIUM (BEAKER) 9.8 mg/dL 8.4-10.2 (test code = 697) EGFR (BEAKER) 83 Interpretatio n of eGFR (test code = [...] not appl icable for dialysis patien ts Hand Slitter ID - [id number] 23:39:47 Test Item Value Reference Range Interpretation Comments MAGNESIUM (BEAKER) (test code = 2.0 mg/dL 1.6-2.6 627) Hand Slitter ID - ADMINLACTIC ACID, [id number] 23:39:47 Test Item Value Reference Range Interpretation Comments LACTATE BLOOD ARTERIAL (2) 2.7 mmol/L 0.5-2.0 H (BEAKER) (test code = 2874) Hand Slitter ID - ADMINCBC (HEMOGRAM ONLY)[id number] 22:34:57 Test Item Value Reference Range Interpretation Comments WHITE BLOOD CELL COUNT (BEAKER) 14.6 K/ L 3.5-10.5 H (test code = 775) RED BLOOD CELL COUNT (BEAKER) 2.94 M/ L 4.63-6.08 L (test code = 761) HEMOGLOBIN (BEAKER) (test code = 8.6 GM/DL 13.7-17.5 L 410) HEMATOCRIT (BEAKER) (test code = 26.4 % 40.1-51.0 L 411) MEAN CORPUSCULAR VOLUME (BEAKER) 90 fL 79-92 (test code = 753) MEAN CORPUSCULAR HEMOGLOBIN 29.3 pg 25.7-32.2 (BEAKER) (test code = 751) MEAN CORPUSCULAR HEMOGLOBIN CONC 32.6 GM/DL 32.3-36.5 (BEAKER) (test code = 752) RED CELL DISTRIBUTION WIDTH 16.3 % 11.6-14.4 H (BEAKER) (test code = 412) PLATELET COUNT (BEAKER) (test 210 K/CU MM 150-450 code = 756) MEAN PLATELET VOLUME (BEAKER) 9.3 fL 9.4-12.4 L (test code = 754) NUCLEATED RED BLOOD CELLS 0 /100 WBC 0-0 (BEAKER) (test code = 413) OXYGEN SATURATION, [id number] 22:28:09 Test Item Value Reference Range Interpretation Comments O2 SATURATION (MEASURED) (BEAKER) 81.6 % (test code = 1455) HGB/HCT (H&H) - STAT [id number] 22:23:53 Test Item Value Reference Range Interpretation Comments HEMOGLOBIN (BEAKER) (test code = 9.6 GM/DL 13.0-16.8 L 410) HEMATOCRIT (BEAKER) (test code = 28.0 % 40.0-50.0 L 411) BLOOD GAS, [id number] 22:23:52 Test Item Value Reference Range Interpretation Comments PH ARTERIAL (BEAKER) (test code = 7.44 7.35-7.45 383) PCO2 ARTERIAL (BEAKER) (test code 34 mm Hg 35-45 L = 384) PO2 ARTERIAL (BEAKER) (test code 124 mm Hg 80-90 H = 385) O2 SATURATION ARTERIAL (BEAKER) 98.6 % 96.0-97.0 H (test code = 386) HCO3 ARTERIAL (BEAKER) (test code 22 mmol/L 21-29 = 388) BASE EXCESS ARTERIAL (BEAKER) -1.5 mmol/L -2.0-3.0 (test code = 387) PATIENT TEMPERATURE (BEAKER) 37.2 (test code = 1818) FIO2 (BEAKER) (test code = 1819) 40.0 SODIUM NA-STAT [id number] 22:23:36 Test Item Value Reference Range Interpretation Comments SODIUM (BEAKER) (test code = 381) 137 meq/L 136-145 POTASSIUM-STAT [id number] 22:23:36 Test Item Value Reference Range Interpretation Comments POTASSIUM (BEAKER) (test code = 4.6 meq/L 3.6-5.5 379) GLUCOSE-STAT [id number] 22:23:35 Test Item Value Reference Range Interpretation Comments GLUCOSE RANDOM (BEAKER) (test code 137 mg/dL 70-110 H = 652) RAD, CHEST, 1 VIEW, NON [id number] 21:42:00Reason for exam:->post- Bronch assess R lower lobeShould this be performed at the bedside?->Yes [facility] : 1980 Sex: MFINAL REPORT CLINICAL INDICATION: post- Bronch assess R lower lobe Comparison: Same date at 1514 hours The cardiomediastinal contours are stable. There is stable opacification suggestive of atelectasis in the right lower lung when compared to previous. Patchy opacity in the left lung is similar to previous and may reflect atelectasis or scarring. Pneumonitis should be excluded clinically. There is no pneumothorax. A left PICC line has been removed. Remaining support lines are stable.Signed: Connie Bonilla MDReport Verified Date/Time: 07/04/2022 21:42:50 BLOOD GAS, [id number] 20:17:06 Test Item Value Reference Range Interpretation Comments PH ARTERIAL (BEAKER) (test code = 7.43 7.35-7.45 383) PCO2 ARTERIAL (BEAKER) (test code 37 mm Hg 35-45 = 384) PO2 ARTERIAL (BEAKER) (test code 104 mm Hg 80-90 H = 385) O2 SATURATION ARTERIAL (BEAKER) 97.9 % 96.0-97.0 H (test code = 386) HCO3 ARTERIAL (BEAKER) (test code 24 mmol/L 21-29 = 388) BASE EXCESS ARTERIAL (BEAKER) -0.4 mmol/L -2.0-3.0 (test code = 387) PATIENT TEMPERATURE (BEAKER) 37.2 (test code = 1818) FIO2 (BEAKER) (test code = 1819) 40.0 HGB/HCT (H&H) - STAT [id number] 20:17:06 Test Item Value Reference Range Interpretation Comments HEMOGLOBIN (BEAKER) (test code = 9.1 GM/DL 13.0-16.8 L 410) HEMATOCRIT (BEAKER) (test code = 27.0 % 40.0-50.0 L 411) SODIUM NA-STAT [id number] 20:16:55 Test Item Value Reference Range Interpretation Comments SODIUM (BEAKER) (test code = 381) 138 meq/L 136-145 POTASSIUM-STAT [id number] 20:16:55 Test Item Value Reference Range Interpretation Comments POTASSIUM (BEAKER) (test code = 4.7 meq/L 3.6-5.5 379) GLUCOSE-STAT [id number] 20:16:54 Test Item Value Reference Range Interpretation Comments GLUCOSE RANDOM (BEAKER) (test code 133 mg/dL 70-110 H = 652) BLOOD GAS, [id number] 19:19:37 Test Item Value Reference Range Interpretation Comments PH ARTERIAL (BEAKER) (test code = 7.42 7.35-7.45 383) PCO2 ARTERIAL (BEAKER) (test code 37 mm Hg 35-45 = 384) PO2 ARTERIAL (BEAKER) (test code 119 mm Hg 80-90 H = 385) O2 SATURATION ARTERIAL (BEAKER) 98.4 % 96.0-97.0 H (test code = 386) HCO3 ARTERIAL (BEAKER) (test code 24 mmol/L 21-29 = 388) BASE EXCESS ARTERIAL (BEAKER) -0.7 mmol/L -2.0-3.0 (test code = 387) PATIENT TEMPERATURE (BEAKER) 36.8 (test code = 1818) FIO2 (BEAKER) (test code = 1819) 40.0 HGB/HCT (H&H) - STAT [id number] 19:19:37 Test Item Value Reference Range Interpretation Comments HEMOGLOBIN (BEAKER) (test code = 9.2 GM/DL 13.0-16.8 L 410) HEMATOCRIT (BEAKER) (test code = 27.0 % 40.0-50.0 L 411) SODIUM NA-STAT [id number] 19:18:59 Test Item Value Reference Range Interpretation Comments SODIUM (BEAKER) (test code = 381) 137 meq/L 136-145 POTASSIUM-STAT [id number] 19:18:59 Test Item Value Reference Range Interpretation Comments POTASSIUM (BEAKER) (test code = 4.7 meq/L 3.6-5.5 379) GLUCOSE-STAT [id number] 19:18:58 Test Item Value Reference Range Interpretation Comments GLUCOSE RANDOM (BEAKER) (test code 133 mg/dL 70-110 H = 652) HGB/HCT (H&H) - STAT [id number] 18:13:21 Test Item Value Reference Range Interpretation Comments HEMOGLOBIN (BEAKER) (test code = 9.2 GM/DL 13.0-16.8 L 410) HEMATOCRIT (BEAKER) (test code = 27.0 % 40.0-50.0 L 411) BLOOD GAS, [id number] 18:13:20 Test Item Value Reference Range Interpretation Comments PH ARTERIAL (BEAKER) (test code = 7.46 7.35-7.45 H 383) PCO2 ARTERIAL (BEAKER) (test code 32 mm Hg 35-45 L = 384) PO2 ARTERIAL (BEAKER) (test code 118 mm Hg 80-90 H = 385) O2 SATURATION ARTERIAL (BEAKER) 98.5 % 96.0-97.0 H (test code = 386) HCO3 ARTERIAL (BEAKER) (test code 22 mmol/L 21-29 = 388) BASE EXCESS ARTERIAL (BEAKER) -1.1 mmol/L -2.0-3.0 (test code = 387) PATIENT TEMPERATURE (BEAKER) 36.6 (test code = 1818) FIO2 (BEAKER) (test code = 1819) 60.0 POTASSIUM-STAT [id number] 18:13:15 Test Item Value Reference Range Interpretation Comments POTASSIUM (BEAKER) (test code = 4.5 meq/L 3.6-5.5 379) GLUCOSE-STAT [id number] 18:13:14 Test Item Value Reference Range Interpretation Comments GLUCOSE RANDOM (BEAKER) (test code 123 mg/dL 70-110 H = 652) SODIUM NA-STAT [id number] 18:13:14 Test Item Value Reference Range Interpretation Comments SODIUM (BEAKER) (test code = 381) 137 meq/L 136-145 BASIC METABOLIC [id number] 17:48:07 Test Item Value Reference Range Interpretation Comments SODIUM (BEAKER) 140 meq/L 136-145 (test code = 381) POTASSIUM 5.1 meq/L 3.5-5.1 (BEAKER) (test code = 379) CHLORIDE (BEAKER) 108 meq/L 98-107 H (test code = 382) CO2 (BEAKER) 22 meq/L 22-29 (test code = 355) BLOOD UREA 12 mg/dL 7-21 NITROGEN (BEAKER) (test code = 354) CREATININE 0.99 mg/dL 0.57-1.25 (BEAKER) (test code = 358) GLUCOSE RANDOM 117 mg/dL 70-105 H (BEAKER) (test code = 652) CALCIUM (BEAKER) 10.0 mg/dL 8.4-10.2 (test code = 697) EGFR (BEAKER) 99 Interpretatio n of eGFR (test code = [...] not appl icable for dialysis patien ts Hand Slitter ID - ADMINLACTIC ACID, [id number] 17:44:24 Test Item Value Reference Range Interpretation Comments LACTATE BLOOD 2.0 mmol/L 0.5-2.0 Specimen sligh tly ARTERIAL (2) (BEAKER) hemoly zed (test code = 2874) Hand Slitter ID - ADMINBLOOD GAS, [id number] 17:23:35 Test Item Value Reference Range Interpretation Comments PH ARTERIAL (BEAKER) (test code = 7.45 7.35-7.45 383) PCO2 ARTERIAL (BEAKER) (test code 35 mm Hg 35-45 = 384) PO2 ARTERIAL (BEAKER) (test code 146 mm Hg 80-90 H = 385) O2 SATURATION ARTERIAL (BEAKER) 99.0 % 96.0-97.0 H (test code = 386) HCO3 ARTERIAL (BEAKER) (test code 24 mmol/L 21-29 = 388) BASE EXCESS ARTERIAL (BEAKER) -0.2 mmol/L -2.0-3.0 (test code = 387) PATIENT TEMPERATURE (BEAKER) 36.3 (test code = 1818) FIO2 (BEAKER) (test code = 1819) 60.0 RAD, CHEST, 1 VIEW, NON [id number] 16:07:00Reason for exam:->s/p heart transplant/intubatedShould this be performed at the bedside?->Yes [facility] 1980 Sex: MFINAL REPORT RAD, CHEST, 1 VIEW, NON DEPT, RAD, CHEST, 1 VIEW, NON DEPT TECHNIQUE: Frontal view(s) of the chest 07/04/2022 at 1511 and 1514 hours. INDICATION: Pulmonary artery catheter position. s/p heart transplant/intubated COMPARISON: Chest radiograph same day at 0544 hours FINDINGS/IMPRESSION: Lines/Tubes: On the earlier radiograph at 1511 hours, the pulmonary artery catheter terminates in the right interlobar pulmonary artery and is kinked and pointing proximally. On the later radiograph at 1514 hours, the pulmonary artery catheter is pointing distally in the correct direction and terminates in the right pulmonary artery. Endotracheal tube tip approximately 1.5 cm above the [place]. Nasogastric tube courses below the diaphragm and terminates in the gastric body. Mediastinal drains and a left-sided chest tube. A left arm PICC with tip projecting over the superior cavoatrial junction Lungs/pleura: Asymmetric elevation of the right hemidiaphragm with right basilar pleural-parenchymal opacity. Streaky left upper lobe subsegmental atelectasis. No pneumothorax. Heart and Mediastinum: Small pneumomediastinum. Soft Tissues and Bones: Skin sandrita and sternotomy wires. Surgical clips in the left subclavian soft tissues. Signed: Alejandro Landaort Verified Date/Time: 07/04/2022 16:07:41 RAD, CHEST, 1 VIEW, NON [id number] 16:07:00Reason for exam:->PAC positionShould this be performed at the bedside?->Yes [facility] 1980 Sex: MFINAL REPORT RAD, CHEST, 1 VIEW, NON DEPT, RAD, CHEST, 1 VIEW, NON DEPT TECHNIQUE: Frontal view(s) of the chest 07/04/2022 at 1511 and 1514 hours. INDICATION: Pulmonary artery catheter position. s/p heart transplant/intubated COMPARISON: Chest radiograph same day at 0544 hours FINDINGS/IMPRESSION: Lines/Tubes: On the earlier radiograph at 1511 hours, the pulmonary artery catheter terminates in the right interlobar pulmonary artery and is kinked and pointing proximally. On the later radiograph at 1514 hours, the pulmonary artery catheter is pointing distally in the correct direction and terminates in the right pulmonary artery. Endotracheal tube tip approximately 1.5 cm above the [place]. Nasogastric tube courses below the diaphragm and terminates in the gastric body. Mediastinal drains and a left-sided chest tube. A left arm PICC with tip projecting over the superior cavoatrial junction Lungs/pleura: Asymmetric elevation of the right hemidiaphragm with right basilar pleural-parenchymal opacity. Streaky left upper lobe subsegmental atelectasis. No pneumothorax. Heart and Mediastinum: Small pneumomediastinum. Soft Tissues and Bones: Skin sandrita and sternotomy wires. Surgical clips in the left subclavian soft tissues. Signed: Alejandro Landa Verified Date/Time: 07/04/2022 16:07:41 [id number] 15:23:13 Test Item Value Reference Range Interpretation Comments FIBRINOGEN LEVEL (BEAKER) (test 515 mg/dl 225-434 H code = 658) BASIC METABOLIC [id number] 15:22:32 Test Item Value Reference Range Interpretation Comments SODIUM (BEAKER) 142 meq/L 136-145 (test code = 381) POTASSIUM 5.3 meq/L 3.5-5.1 H (BEAKER) (test code = 379) CHLORIDE (BEAKER) 109 meq/L 98-107 H (test code = 382) CO2 (BEAKER) 23 meq/L 22-29 (test code = 355) BLOOD UREA 10 mg/dL 7-21 NITROGEN (BEAKER) (test code = 354) CREATININE 1.02 mg/dL 0.57-1.25 (BEAKER) (test code = 358) GLUCOSE RANDOM 99 mg/dL 70-105 (BEAKER) (test code = 652) CALCIUM (BEAKER) 10.5 mg/dL 8.4-10.2 H (test code = 697) EGFR (BEAKER) 95 Interpretatio n of eGFR (test code = [...] not appl icable for dialysis patien ts Hand Slitter ID - ADMINLACTIC ACID, [id number] 15:19:29 Test Item Value Reference Range Interpretation Comments LACTATE BLOOD ARTERIAL (2) 2.4 mmol/L 0.5-2.0 H (BEAKER) (test code = 2874) Hand Slitter ID - [id number] 15:18:52 Test Item Value Reference Range Interpretation Comments PARTIAL THROMBOPLASTIN TIME 28.4 seconds 22.5-36.0 (BEAKER) (test code = 760) PROTHROMBIN [id number] 15:18:13 Test Item Value Reference Range Interpretation Comments PROTIME (BEAKER) (test code = 16.0 seconds 11.9-14.2 H 759) INR (BEAKER) (test code = 370) 1.31 <=5.90 RECOMMENDED COUMADIN/WARFARIN INR THERAPY RANGESSTANDARD DOSE: 2.0 - 3.0 Includes: PROPHYLAXIS for venous thrombosis, systemic embolization; TREATMENT for venous thrombosis and/or pulmonary embolus.HIGH RISK: Target INR is 2.5-3.5 for patients with mechanical heart valves.CBC (HEMOGRAM ONLY)[id number] 15:01:45 Test Item Value Reference Range Interpretation Comments WHITE BLOOD CELL COUNT (BEAKER) 14.1 K/ L 3.5-10.5 H (test code = 775) RED BLOOD CELL COUNT (BEAKER) 3.09 M/ L 4.63-6.08 L (test code = 761) HEMOGLOBIN (BEAKER) (test code = 8.9 GM/DL 13.7-17.5 L 410) HEMATOCRIT (BEAKER) (test code = 27.3 % 40.1-51.0 L 411) MEAN CORPUSCULAR VOLUME (BEAKER) 88 fL 79-92 (test code = 753) MEAN CORPUSCULAR HEMOGLOBIN 28.8 pg 25.7-32.2 (BEAKER) (test code = 751) MEAN CORPUSCULAR HEMOGLOBIN CONC 32.6 GM/DL 32.3-36.5 (BEAKER) (test code = 752) RED CELL DISTRIBUTION WIDTH 15.9 % 11.6-14.4 H (BEAKER) (test code = 412) PLATELET COUNT (BEAKER) (test 193 K/CU MM 150-450 code = 756) MEAN PLATELET VOLUME (BEAKER) 9.1 fL 9.4-12.4 L (test code = 754) NUCLEATED RED BLOOD CELLS 0 /100 WBC 0-0 (BEAKER) (test code = 413) CALCIUM, [id number] 14:58:30 Test Item Value Reference Range Interpretation Comments CALCIUM IONIZED (BEAKER) (test 1.30 mmol/L 1.12-1.27 H code = 698) PH, BLOOD (BEAKER) (test code = 7.38 1810) BLOOD GAS, [id number] 14:58:30 Test Item Value Reference Range Interpretation Comments PH ARTERIAL (BEAKER) (test code = 7.40 7.35-7.45 383) PCO2 ARTERIAL (BEAKER) (test code 42 mm Hg 35-45 = 384) PO2 ARTERIAL (BEAKER) (test code = 213 mm Hg 80-90 H 385) O2 SATURATION ARTERIAL (BEAKER) 99.4 % 96.0-97.0 H (test code = 386) HCO3 ARTERIAL (BEAKER) (test code 26 mmol/L 21-29 = 388) BASE EXCESS ARTERIAL (BEAKER) 0.7 mmol/L -2.0-3.0 (test code = 387) PATIENT TEMPERATURE (BEAKER) (test 35.4 code = 1818) FIO2 (BEAKER) (test code = 1819) 100.0 HGB/HCT (H&H) - STAT [id number] 14:58:30 Test Item Value Reference Range Interpretation Comments HEMOGLOBIN (BEAKER) (test code = 9.5 GM/DL 13.0-16.8 L 410) HEMATOCRIT (BEAKER) (test code = 28.0 % 40.0-50.0 L 411) OXYGEN SATURATION, [id number] 14:58:13 Test Item Value Reference Range Interpretation Comments O2 SATURATION (MEASURED) (BEAKER) 84.6 % (test code = 1455) SODIUM NA-STAT [id number] 14:58:12 Test Item Value Reference Range Interpretation Comments SODIUM (BEAKER) (test code = 381) 139 meq/L 136-145 POTASSIUM-STAT [id number] 14:58:12 Test Item Value Reference Range Interpretation Comments POTASSIUM (BEAKER) (test code = 4.9 meq/L 3.6-5.5 379) GLUCOSE-STAT [id number] 14:58:06 Test Item Value Reference Range Interpretation Comments GLUCOSE RANDOM (BEAKER) (test code = 99 mg/dL 70-110 652) HIV-1 ANTIGEN WITH HIV-1/2 [id number] 14:23:46 Test Item Value Reference Range Interpretation Comments HIV-1 ANTIGEN WITH HIV 1\\T\\2 Nonreactive Nonreactive ANTIBODY (2) (BEAKER) (test code = 2586) Hand Slitter ID - ADMINHEPATITIS C [id number] 14:23:45 Test Item Value Reference Range Interpretation Comments HEPATITIS C ANTIBODY (BEAKER) Nonreactive Nonreactive (test code = 367) Hand Slitter ID - ADMINHEPATITIS B [id number] 14:23:45 Test Item Value Reference Range Interpretation Comments HEPATITIS B CORE TOTAL ANTIBODY Nonreactive Nonreactive (BEAKER) (test code = 497) HEPATITIS B SURFACE ANTIBODY 506.7 mIU/mL <8.0 H (BEAKER) (test code = 647) HEPATITIS B SURFACE ANTIGEN (2) Nonreactive Nonreactive (BEAKER) (test code = 2585) Hand Slitter ID - [id number] 14:21:46 Test Item Value Reference Range Interpretation Comments PARTIAL THROMBOPLASTIN TIME 27.5 seconds 22.5-36.0 (BEAKER) (test code = 760) [id number] 14:21:45 Test Item Value Reference Range Interpretation Comments FIBRINOGEN LEVEL (BEAKER) (test 460 mg/dl 225-434 H code = 658) PROTHROMBIN [id number] 14:21:23 Test Item Value Reference Range Interpretation Comments PROTIME (BEAKER) (test code = 17.4 seconds 11.9-14.2 H 759) INR (BEAKER) (test code = 370) 1.46 <=5.90 RECOMMENDED COUMADIN/WARFARIN INR THERAPY RANGESSTANDARD DOSE: 2.0 - 3.0 Includes: PROPHYLAXIS for venous thrombosis, systemic embolization; TREATMENT for venous thrombosis and/or pulmonary embolus.HIGH RISK: Target INR is 2.5-3.5 for patients with mechanical heart valves.PLATELET [id number] 13:55:31 Test Item Value Reference Range Interpretation Comments PLATELET COUNT (BEAKER) (test 193 K/CU MM 150-450 code = 756) Hand Slitter ID - 6000CALCIUM, [id number] 13:53:56 Test Item Value Reference Range Interpretation Comments CALCIUM IONIZED (BEAKER) (test 1.39 mmol/L 1.12-1.27 H code = 698) PH, BLOOD (BEAKER) (test code = 7.32 1810) HGB/HCT (H&H) - STAT [id number] 13:53:16 Test Item Value Reference Range Interpretation Comments HEMOGLOBIN (BEAKER) (test code = 8.0 GM/DL 13.0-16.8 L 410) HEMATOCRIT (BEAKER) (test code = 24.0 % 40.0-50.0 L 411) BLOOD GAS, [id number] 13:53:15 Test Item Value Reference Range Interpretation Comments PH ARTERIAL (BEAKER) (test code = 7.32 7.35-7.45 L 383) PCO2 ARTERIAL (BEAKER) (test code 47 mm Hg 35-45 H = 384) PO2 ARTERIAL (BEAKER) (test code 251 mm Hg 80-90 H = 385) O2 SATURATION ARTERIAL (BEAKER) 99.5 % 96.0-97.0 H (test code = 386) HCO3 ARTERIAL (BEAKER) (test code 24 mmol/L 21-29 = 388) BASE EXCESS ARTERIAL (BEAKER) -2.3 mmol/L -2.0-3.0 L (test code = 387) PATIENT TEMPERATURE (BEAKER) 35.9 (test code = 1818) FIO2 (BEAKER) (test code = 1819) 100.0 POTASSIUM-STAT [id number] 13:52:34 Test Item Value Reference Range Interpretation Comments POTASSIUM (BEAKER) (test code = 4.5 meq/L 3.6-5.5 379) SODIUM NA-STAT [id number] 13:52:33 Test Item Value Reference Range Interpretation Comments SODIUM (BEAKER) (test code = 381) 141 meq/L 136-145 GLUCOSE-STAT [id number] 13:52:32 Test Item Value Reference Range Interpretation Comments GLUCOSE RANDOM (BEAKER) (test code 130 mg/dL 70-110 H = 652) LACTIC ACID, [id number] 13:39:44 Test Item Value Reference Range Interpretation Comments LACTATE BLOOD 4.7 mmol/L 0.5-2.0 HH Specimen sligh tly ARTERIAL (2) (BEAKER) hemoly zed (test code = 2874) Hand Slitter ID - [id number] 13:23:40 Test Item Value Reference Range Interpretation Comments PARTIAL THROMBOPLASTIN TIME 25.1 seconds 22.5-36.0 (BEAKER) (test code = 760) PROTHROMBIN [id number] 13:22:58 Test Item Value Reference Range Interpretation Comments PROTIME (BEAKER) (test code = 19.2 seconds 11.9-14.2 H 759) INR (BEAKER) (test code = 370) 1.73 <=5.90 RECOMMENDED COUMADIN/WARFARIN INR THERAPY RANGESSTANDARD DOSE: 2.0 - 3.0 Includes: PROPHYLAXIS for venous thrombosis, systemic embolization; TREATMENT for venous thrombosis and/or pulmonary embolus.HIGH RISK: Target INR is 2.5-3.5 for patients with mechanical heart valves.BLOOD GAS, [id number] 13:01:28 Test Item Value Reference Range Interpretation Comments PH ARTERIAL (BEAKER) (test code = 7.40 7.35-7.45 383) PCO2 ARTERIAL (BEAKER) (test code 36 mm Hg 35-45 = 384) PO2 ARTERIAL (BEAKER) (test code 268 mm Hg 80-90 H = 385) O2 SATURATION ARTERIAL (BEAKER) 99.6 % 96.0-97.0 H (test code = 386) HCO3 ARTERIAL (BEAKER) (test code 24 mmol/L 21-29 = 388) BASE EXCESS ARTERIAL (BEAKER) -2.9 mmol/L -2.0-3.0 L (test code = 387) PATIENT TEMPERATURE (BEAKER) 30.2 (test code = 1818) FIO2 (BEAKER) (test code = 1819) 100.0 HGB/HCT (H&H) - STAT [id number] 13:01:28 Test Item Value Reference Range Interpretation Comments HEMOGLOBIN (BEAKER) (test code = 8.4 GM/DL 13.0-16.8 L 410) HEMATOCRIT (BEAKER) (test code = 25.0 % 40.0-50.0 L 411) CALCIUM, [id number] 13:01:27 Test Item Value Reference Range Interpretation Comments CALCIUM IONIZED (BEAKER) (test 1.08 mmol/L 1.12-1.27 L code = 698) PH, BLOOD (BEAKER) (test code = 7.30 1810) POTASSIUM-STAT [id number] 13:00:15 Test Item Value Reference Range Interpretation Comments POTASSIUM (BEAKER) (test code = 4.3 meq/L 3.6-5.5 379) SODIUM NA-STAT [id number] 13:00:14 Test Item Value Reference Range Interpretation Comments SODIUM (BEAKER) (test code = 381) 140 meq/L 136-145 GLUCOSE-STAT [id number] 13:00:09 Test Item Value Reference Range Interpretation Comments GLUCOSE RANDOM (BEAKER) (test code 155 mg/dL 70-110 H = 652) LACTIC ACID, [id number] 12:49:03 Test Item Value Reference Range Interpretation Comments LACTATE BLOOD 3.9 mmol/L 0.5-2.0 H Specimen sligh tly ARTERIAL (2) (BEAKER) hemoly zed (test code = 2874) Hand Slitter ID - [id number] 12:40:11 Test Item Value Reference Range Interpretation Comments FIBRINOGEN LEVEL (BEAKER) (test 441 mg/dl 225-434 H code = 658) HGB/HCT (H&H) - STAT [id number] 12:36:44 Test Item Value Reference Range Interpretation Comments HEMOGLOBIN (BEAKER) (test code = 8.5 GM/DL 13.0-16.8 L 410) HEMATOCRIT (BEAKER) (test code = 25.0 % 40.0-50.0 L 411) BLOOD GAS, [id number] 12:36:43 Test Item Value Reference Range Interpretation Comments PH ARTERIAL (BEAKER) (test code = 7.40 7.35-7.45 383) PCO2 ARTERIAL (BEAKER) (test code 36 mm Hg 35-45 = 384) PO2 ARTERIAL (BEAKER) (test code 402 mm Hg 80-90 H = 385) O2 SATURATION ARTERIAL (BEAKER) 99.8 % 96.0-97.0 H (test code = 386) HCO3 ARTERIAL (BEAKER) (test code 22 mmol/L 21-29 = 388) BASE EXCESS ARTERIAL (BEAKER) -2.6 mmol/L -2.0-3.0 L (test code = 387) PATIENT TEMPERATURE (BEAKER) 36.6 (test code = 1818) FIO2 (BEAKER) (test code = 1819) 80.0 POTASSIUM-STAT [id number] 12:35:09 Test Item Value Reference Range Interpretation Comments POTASSIUM (BEAKER) (test code = 4.9 meq/L 3.6-5.5 379) SODIUM NA-STAT [id number] 12:35:03 Test Item Value Reference Range Interpretation Comments SODIUM (BEAKER) (test code = 381) 141 meq/L 136-145 GLUCOSE-STAT [id number] 12:35:02 Test Item Value Reference Range Interpretation Comments GLUCOSE RANDOM (BEAKER) (test code 153 mg/dL 70-110 H = 652) PLATELET [id number] 12:15:40 Test Item Value Reference Range Interpretation Comments PLATELET COUNT (BEAKER) (test 220 K/CU MM 150-450 code = 756) Hand Slitter ID - 6000HGB/HCT (H&H) - STAT [id number] 12:09:43 Test Item Value Reference Range Interpretation Comments HEMOGLOBIN (BEAKER) (test code = 8.7 GM/DL 13.0-16.8 L 410) HEMATOCRIT (BEAKER) (test code = 26.0 % 40.0-50.0 L 411) BLOOD GAS, [id number] 12:09:42 Test Item Value Reference Range Interpretation Comments PH ARTERIAL (BEAKER) (test code = 7.36 7.35-7.45 383) PCO2 ARTERIAL (BEAKER) (test code 43 mm Hg 35-45 = 384) PO2 ARTERIAL (BEAKER) (test code 358 mm Hg 80-90 H = 385) O2 SATURATION ARTERIAL (BEAKER) 99.8 % 96.0-97.0 H (test code = 386) HCO3 ARTERIAL (BEAKER) (test code 24 mmol/L 21-29 = 388) BASE EXCESS ARTERIAL (BEAKER) -1.8 mmol/L -2.0-3.0 (test code = 387) PATIENT TEMPERATURE (BEAKER) 36.8 (test code = 1818) FIO2 (BEAKER) (test code = 1819) 80.0 SODIUM NA-STAT [id number] 12:08:59 Test Item Value Reference Range Interpretation Comments SODIUM (BEAKER) (test code = 381) 139 meq/L 136-145 POTASSIUM-STAT [id number] 12:08:59 Test Item Value Reference Range Interpretation Comments POTASSIUM (BEAKER) (test code = 4.7 meq/L 3.6-5.5 379) GLUCOSE-STAT [id number] 12:08:53 Test Item Value Reference Range Interpretation Comments GLUCOSE RANDOM (BEAKER) (test code 183 mg/dL 70-110 H = 652) BLOOD GAS, [id number] 11:39:56 Test Item Value Reference Range Interpretation Comments PH ARTERIAL (BEAKER) (test code = 7.33 7.35-7.45 L 383) PCO2 ARTERIAL (BEAKER) (test code 45 mm Hg 35-45 = 384) PO2 ARTERIAL (BEAKER) (test code 366 mm Hg 80-90 H = 385) O2 SATURATION ARTERIAL (BEAKER) 99.8 % 96.0-97.0 H (test code = 386) HCO3 ARTERIAL (BEAKER) (test code 23 mmol/L 21-29 = 388) BASE EXCESS ARTERIAL (BEAKER) -2.7 mmol/L -2.0-3.0 L (test code = 387) PATIENT TEMPERATURE (BEAKER) 36.7 (test code = 1818) FIO2 (BEAKER) (test code = 1819) 80.0 HGB/HCT (H&H) - STAT [id number] 11:39:56 Test Item Value Reference Range Interpretation Comments HEMOGLOBIN (BEAKER) (test code = 8.9 GM/DL 13.0-16.8 L 410) HEMATOCRIT (BEAKER) (test code = 26.0 % 40.0-50.0 L 411) SODIUM NA-STAT [id number] 11:39:23 Test Item Value Reference Range Interpretation Comments SODIUM (BEAKER) (test code = 381) 137 meq/L 136-145 POTASSIUM-STAT [id number] 11:39:23 Test Item Value Reference Range Interpretation Comments POTASSIUM (BEAKER) (test code = 5.0 meq/L 3.6-5.5 379) GLUCOSE-STAT [id number] 11:39:22 Test Item Value Reference Range Interpretation Comments GLUCOSE RANDOM (BEAKER) (test code 254 mg/dL 70-110 H = 652) HGB/HCT (H&H) - STAT [id number] 11:05:44 Test Item Value Reference Range Interpretation Comments HEMOGLOBIN (BEAKER) (test code = 8.0 GM/DL 13.0-16.8 L 410) HEMATOCRIT (BEAKER) (test code = 24.0 % 40.0-50.0 L 411) BLOOD GAS, [id number] 11:05:43 Test Item Value Reference Range Interpretation Comments PH ARTERIAL (BEAKER) (test code = 7.28 7.35-7.45 L 383) PCO2 ARTERIAL (BEAKER) (test code 54 mm Hg 35-45 H = 384) PO2 ARTERIAL (BEAKER) (test code 354 mm Hg 80-90 H = 385) O2 SATURATION ARTERIAL (BEAKER) 99.7 % 96.0-97.0 H (test code = 386) HCO3 ARTERIAL (BEAKER) (test code 25 mmol/L 21-29 = 388) BASE EXCESS ARTERIAL (BEAKER) -1.9 mmol/L -2.0-3.0 (test code = 387) PATIENT TEMPERATURE (BEAKER) 36.5 (test code = 1818) FIO2 (BEAKER) (test code = 1819) 80.0 POTASSIUM-STAT [id number] 11:05:21 Test Item Value Reference Range Interpretation Comments POTASSIUM (BEAKER) (test code = 4.3 meq/L 3.6-5.5 379) GLUCOSE-STAT [id number] 11:04:40 Test Item Value Reference Range Interpretation Comments GLUCOSE RANDOM (BEAKER) (test code 290 mg/dL 70-110 H = 652) SODIUM NA-STAT [id number] 11:04:40 Test Item Value Reference Range Interpretation Comments SODIUM (BEAKER) (test code = 381) 135 meq/L 136-145 L CALCIUM, [id number] 10:55:46 Test Item Value Reference Range Interpretation Comments CALCIUM IONIZED (BEAKER) (test 1.04 mmol/L 1.12-1.27 L code = 698) PH, BLOOD (BEAKER) (test code = 7.30 1810) BLOOD GAS, [id number] 10:55:33 Test Item Value Reference Range Interpretation Comments PH ARTERIAL (BEAKER) (test code = 7.31 7.35-7.45 L 383) PCO2 ARTERIAL (BEAKER) (test code 45 mm Hg 35-45 = 384) PO2 ARTERIAL (BEAKER) (test code 214 mm Hg 80-90 H = 385) O2 SATURATION ARTERIAL (BEAKER) 99.4 % 96.0-97.0 H (test code = 386) HCO3 ARTERIAL (BEAKER) (test code 22 mmol/L 21-29 = 388) BASE EXCESS ARTERIAL (BEAKER) -4.1 mmol/L -2.0-3.0 L (test code = 387) PATIENT TEMPERATURE (BEAKER) 36.0 (test code = 1818) FIO2 (BEAKER) (test code = 1819) 100.0 HGB/HCT (H&H) - STAT [id number] 10:55:33 Test Item Value Reference Range Interpretation Comments HEMOGLOBIN (BEAKER) (test code = 8.8 GM/DL 13.0-16.8 L 410) HEMATOCRIT (BEAKER) (test code = 26.0 % 40.0-50.0 L 411) POTASSIUM-STAT [id number] 10:54:57 Test Item Value Reference Range Interpretation Comments POTASSIUM (BEAKER) (test code = 3.9 meq/L 3.6-5.5 379) GLUCOSE-STAT [id number] 10:54:56 Test Item Value Reference Range Interpretation Comments GLUCOSE RANDOM (BEAKER) (test code 230 mg/dL 70-110 H = 652) SODIUM NA-STAT [id number] 10:54:56 Test Item Value Reference Range Interpretation Comments SODIUM (BEAKER) (test code = 381) 137 meq/L 136-145 BLOOD GAS, [id number] 10:00:58 Test Item Value Reference Range Interpretation Comments PH ARTERIAL (BEAKER) (test code = 7.40 7.35-7.45 383) PCO2 ARTERIAL (BEAKER) (test code 36 mm Hg 35-45 = 384) PO2 ARTERIAL (BEAKER) (test code 388 mm Hg 80-90 H = 385) O2 SATURATION ARTERIAL (BEAKER) 99.8 % 96.0-97.0 H (test code = 386) HCO3 ARTERIAL (BEAKER) (test code 22 mmol/L 21-29 = 388) BASE EXCESS ARTERIAL (BEAKER) -2.7 mmol/L -2.0-3.0 L (test code = 387) PATIENT TEMPERATURE (BEAKER) 36.4 (test code = 1818) FIO2 (BEAKER) (test code = 1819) 100.0 HGB/HCT (H&H) - STAT [id number] 10:00:58 Test Item Value Reference Range Interpretation Comments HEMOGLOBIN (BEAKER) (test code = 9.8 GM/DL 13.0-16.8 L 410) HEMATOCRIT (BEAKER) (test code = 29.0 % 40.0-50.0 L 411) CALCIUM, [id number] 10:00:57 Test Item Value Reference Range Interpretation Comments CALCIUM IONIZED (BEAKER) (test 1.11 mmol/L 1.12-1.27 L code = 698) PH, BLOOD (BEAKER) (test code = 7.39 1810) SODIUM NA-STAT [id number] 10:00:18 Test Item Value Reference Range Interpretation Comments SODIUM (BEAKER) (test code = 381) 135 meq/L 136-145 L POTASSIUM-STAT [id number] 10:00:18 Test Item Value Reference Range Interpretation Comments POTASSIUM (BEAKER) (test code = 4.3 meq/L 3.6-5.5 379) GLUCOSE-STAT [id number] 10:00:17 Test Item Value Reference Range Interpretation Comments GLUCOSE RANDOM (BEAKER) (test code 177 mg/dL 70-110 H = 652) RAD, CHEST, 1 VIEW, NON [id number] 06:52:00Reason for exam:->axillary IABPShould this be performed at the bedside?->[facility] : 1980 Sex: MFINAL REPORT CLINICAL HISTORY:axillary IABP TECHNIQUE: 1 view of the chest. COMPARISON: 07/03/2022 IMPRESSION: The tip of the IABP catheter is 2 cm below the aortic knob. The tip of the left PICC line is at the cavoatrial junction. There are no focal infiltrates or effusions. The cardiomediastinal silhouette is magnified by technique. Left axillary surgical clips are again noted. Signed: Raheel Tyson [facility] Verified Date/Time: 07/04/2022 06:52:28 HEPATIC FUNCTION [id number] 06:23:39 Test Item Value Reference Range Interpretation Comments TOTAL PROTEIN (BEAKER) (test code = 6.9 gm/dL 6.0-8.3 770) ALBUMIN (BEAKER) (test code = 1145) 3.7 g/dL 3.5-5.0 BILIRUBIN TOTAL (BEAKER) (test code 0.2 mg/dL 0.2-1.2 = 377) BILIRUBIN DIRECT (BEAKER) (test 0.1 mg/dL 0.1-0.5 code = 706) ALKALINE PHOSPHATASE (BEAKER) (test 57 U/L 40-150 code = 346) AST (SGOT) (BEAKER) (test code = 15 U/L 5-34 353) ALT (SGPT) (BEAKER) (test code = 22 U/L 6-55 347) Hand Slitter ID - MMBASIC METABOLIC [id number] 06:23:38 Test Item Value Reference Range Interpretation Comments SODIUM (BEAKER) 138 meq/L 136-145 (test code = 381) POTASSIUM 4.2 meq/L 3.5-5.1 (BEAKER) (test code = 379) CHLORIDE (BEAKER) 105 meq/L 98-107 (test code = 382) CO2 (BEAKER) 22 meq/L 22-29 (test code = 355) BLOOD UREA 11 mg/dL 7-21 NITROGEN (BEAKER) (test code = 354) CREATININE 1.05 mg/dL 0.57-1.25 (BEAKER) (test code = 358) GLUCOSE RANDOM 137 mg/dL 70-105 H (BEAKER) (test code = 652) CALCIUM (BEAKER) 9.4 mg/dL 8.4-10.2 (test code = 697) EGFR (BEAKER) 92 Interpretatio n of eGFR (test code = [...] not appl icable for dialysis patien ts Hand Slitter ID - [id number] 06:23:38 Test Item Value Reference Range Interpretation Comments MAGNESIUM (BEAKER) (test code = 1.9 mg/dL 1.6-2.6 627) Hand Slitter ID - [id number] 06:23:38 Test Item Value Reference Range Interpretation Comments PHOSPHORUS (BEAKER) (test code = 4.5 mg/dL 2.3-4.7 604) Hand Slitter ID - MMCBC W/PLT COUNT & AUTO [id number] 05:45:47 Test Item Value Reference Range Interpretation Comments WHITE BLOOD CELL COUNT (BEAKER) 5.6 K/ L 3.5-10.5 (test code = 775) RED BLOOD CELL COUNT (BEAKER) 2.99 M/ L 4.63-6.08 L (test code = 761) HEMOGLOBIN (BEAKER) (test code = 8.5 GM/DL 13.7-17.5 L 410) HEMATOCRIT (BEAKER) (test code = 27.5 % 40.1-51.0 L 411) MEAN CORPUSCULAR VOLUME (BEAKER) 92 fL 79-92 (test code = 753) MEAN CORPUSCULAR HEMOGLOBIN 28.4 pg 25.7-32.2 (BEAKER) (test code = 751) MEAN CORPUSCULAR HEMOGLOBIN CONC 30.9 GM/DL 32.3-36.5 L (BEAKER) (test code = 752) RED CELL DISTRIBUTION WIDTH 17.0 % 11.6-14.4 H (BEAKER) (test code = 412) PLATELET COUNT (BEAKER) (test 283 K/CU MM 150-450 code = 756) MEAN PLATELET VOLUME (BEAKER) 8.9 fL 9.4-12.4 L (test code = 754) NUCLEATED RED BLOOD CELLS 0 /100 WBC 0-0 (BEAKER) (test code = 413) NEUTROPHILS RELATIVE PERCENT 63 % (BEAKER) (test code = 429) LYMPHOCYTES RELATIVE PERCENT 20 % (BEAKER) (test code = 430) MONOCYTES RELATIVE PERCENT 11 % (BEAKER) (test code = 431) EOSINOPHILS RELATIVE PERCENT 5 % (BEAKER) (test code = 432) BASOPHILS RELATIVE PERCENT 1 % (BEAKER) (test code = 437) NEUTROPHILS ABSOLUTE COUNT 3.49 K/ L 1.78-5.38 (BEAKER) (test code = 670) LYMPHOCYTES ABSOLUTE COUNT 1.10 K/ L 1.32-3.57 L (BEAKER) (test code = 414) MONOCYTES ABSOLUTE COUNT (BEAKER) 0.61 K/ L 0.30-0.82 (test code = 415) EOSINOPHILS ABSOLUTE COUNT 0.29 K/ L 0.04-0.54 (BEAKER) (test code = 416) BASOPHILS ABSOLUTE COUNT (BEAKER) 0.06 K/ L 0.01-0.08 (test code = 417) IMMATURE GRANULOCYTES-RELATIVE 0.50 % 0.00-1.00 PERCENT (BEAKER) (test code = 2801) [id number] 05:45:06 Test Item Value Reference Range Interpretation Comments PARTIAL THROMBOPLASTIN TIME 65.5 seconds 22.5-36.0 H (BEAKER) (test code = 760) PROTHROMBIN TIME/[id number] 05:43:44 Test Item Value Reference Range Interpretation Comments PROTIME (BEAKER) (test code = 14.6 seconds 11.9-14.2 H 759) INR (BEAKER) (test code = 370) 1.17 <=5.90 RECOMMENDED COUMADIN/WARFARIN INR THERAPY RANGESSTANDARD DOSE: 2.0 - 3.0 Includes: PROPHYLAXIS for venous thrombosis, systemic embolization; TREATMENT for venous thrombosis and/or pulmonary embolus.HIGH RISK: Target INR is 2.5-3.5 for patients with mechanical heart valves.OXYGEN SATURATION, [id number] 05:40:23 Test Item Value Reference Range Interpretation Comments O2 SATURATION (MEASURED) (BEAKER) 78.9 % (test code = 1455) CALCIUM, [id number] 05:40:03 Test Item Value Reference Range Interpretation Comments CALCIUM IONIZED (BEAKER) (test 1.18 mmol/L 1.12-1.27 code = 698) PH, BLOOD (BEAKER) (test code = 7.36 1810) CORTISOL,60 [id number] 16:11:58 Test Item Value Reference Range Interpretation Comments CORTISOL BASELINE NETWORKED 9.3 mcg/dL (BEAKER) (test code = 2307) CORTISOL 30 MINUTE NETWORKED 16.0 mcg/dL (BEAKER) (test code = 2308) CORTISOL, 60 MINUTE (BEAKER) 18.3 ug/dL (test code = 1805) ACTH STIMULATION TEST INTERPRETATION GUIDELINES(Synonyms: Cortrosyn Test, Cosyntropin or Corticotropin Stimulation Test)Adenocorticotropic hormone (ACTH)is a tropic hormone, made in the pituitary gland, which travels trhough the bloodstream and stimulates the cortex of the adrenal glands to release co rtisol. Cortisol is a primary hormone, which aids the body's metabolism of fats, carbohydrates, and protein as well as sodium and potassium regulation.ACTH Stimulation Test: Exogenous administration ofbiologically active ACTH stimulates the secretion of cortisol from the adrenal gland. This test is used to evaluate adrenal function by measuring cortisol levels at baseline and at 30 and 60 minutes after the administration of 250 micrograms of cosyntropin (Cortrosyn). Patients who have received exogenous corticosteroids immediately prior to performing the ACTH Stimulation Test will often have elevated baseline cortisol levels, which may lead to erroneous interpretation of test results. The notable exception is with dexamethasone.Normal Response: An increase in cortisol after stimulation by ACTH isnormal. Post-stimulation cortisol concentration should be greater than 20 mcg/dL or the rate of risefrom baseline cortisol should be greater than or equal to 9 mcg/dL.Patients with sepsis or septic shock: According to a study by Annane et al (SUSAN 2000,283(8):4358-88), the ACTH Stimulation Test provides important prognostic information. This study defined 3 groups of patients with sepsis or septic shock: 1. Good Survival: Low basal cortisol (<or=34 mcg/dL) and high ACTH response (>9mcg/dL) 2.Intermediate Survival: Low basal cortisol (<34 mcg/dL) and low response to ACTH (<or=9 mcg/dL)OR High basal cortisol (>34 mcg/dL) or high ACTH response (>9 mcg/dL) 3. Poor Survival: High basal cortisol (>34 mcg/dL) and low ACTH response (<or=9 mcg/dL).Treatment of patients with relative adrenal dysfunction may be indicated based on test results and the clinical condition of the patient. Additional information, including treatment recommendations, is available in critically ill patients, approved by the Pharmacy, Nutrition, and Therapeutics Committee on 01/20/2004 and available through the Pharmacy Policy and Procedure Section on [employer] Source.Hand Slitter ID - BSCORTISOL,30 [id number] 16:11:47 Test Item Value Reference Range Interpretation Comments CORTISOL BASELINE NETWORKED 9.3 mcg/dL (BEAKER) (test code = 2307) CORTISOL, 30 MINUTE (BEAKER) (test 16.0 ug/dL code = 1804) ACTH STIMULATION TEST INTERPRETATION GUIDELINES(Synonyms: Cortrosyn Test, Cosyntropin or Corticotropin Stimulation Test)Adenocorticotropic hormone (ACTH)is a tropic hormone, made in the pituitary gland, which travels trhough the bloodstream and stimulates the cortex of the adrenal glands to release co rtisol. Cortisol is a primary hormone, which aids the body's metabolism of fats, carbohydrates, and protein as well as sodium and potassium regulation.ACTH Stimulation Test: Exogenous administration ofbiologically active ACTH stimulates the secretion of cortisol from the adrenal gland. This test is used to evaluate adrenal function by measuring cortisol levels at baseline and at 30 and 60 minutes after the administration of 250 micrograms of cosyntropin (Cortrosyn). Patients who have received exogenous corticosteroids immediately prior to performing the ACTH Stimulation Test will often have elevated baseline cortisol levels, which may lead to erroneous interpretation of test results. The notable exception is with dexamethasone.Normal Response: An increase in cortisol after stimulation by ACTH isnormal. Post-stimulation cortisol concentration should be greater than 20 mcg/dL or the rate of risefrom baseline cortisol should be greater than or equal to 9 mcg/dL.Patients with sepsis or septic shock: According to a study by Rosa et al (SUSAN 2000,283(8):3068-45), the ACTH Stimulation Test provides important prognostic information. This study defined 3 groups of patients with sepsis or septic shock: 1. Good Survival: Low basal cortisol (<or=34 mcg/dL) and high ACTH response (>9mcg/dL) 2.Intermediate Survival: Low basal cortisol (<34 mcg/dL) and low response to ACTH (<or=9 mcg/dL)OR High basal cortisol (>34 mcg/dL) or high ACTH response (>9 mcg/dL) 3. Poor Survival: High basal cortisol (>34 mcg/dL) and low ACTH response (<or=9 mcg/dL).Treatment of patients with relative adrenal dysfunction may be indicated based on test results and the clinical condition of the patient. Additional information, including treatment recommendations, is available in critically ill patients, approved by the Pharmacy, Nutrition, and Therapeutics Committee on 01/20/2004 and available through the Pharmacy Policy and Procedure Section on [employer].Hand Slitter ID - BSCORTISOL,[id number] 14:15:01 Test Item Value Reference Range Interpretation Comments CORTISOL, BASELINE (BEAKER) (test 9.3 ug/dL code = 1803) ACTH STIMULATION TEST INTERPRETATION GUIDELINES(Synonyms: Cortrosyn Test, Cosyntropin or Corticotropin Stimulation Test)Adenocorticotropic hormone (ACTH)is a tropic hormone, made in the pituitary gland, which travels trhough the bloodstream and stimulates the cortex of the adrenal glands to release co rtisol. Cortisol is a primary hormone, which aids the body's metabolism of fats, carbohydrates, and protein as well as sodium and potassium regulation.ACTH Stimulation Test: Exogenous administration ofbiologically active ACTH stimulates the secretion of cortisol from the adrenal gland. This test is used to evaluate adrenal function by measuring cortisol levels at baseline and at 30 and 60 minutes after the administration of 250 micrograms of cosyntropin (Cortrosyn). Patients who have received exogenous corticosteroids immediately prior to performing the ACTH Stimulation Test will often have elevated baseline cortisol levels, which may lead to erroneous interpretation of test results. The notable exception is with dexamethasone.Normal Response: An increase in cortisol after stimulation by ACTH isnormal. Post-stimulation cortisol concentration should be greater than 20 mcg/dL or the rate of risefrom baseline cortisol should be greater than or equal to 9 mcg/dL.Patients with sepsis or septic shock: According to a study by Rosa et al (SUSAN 2000,283(8):1038-45), the ACTH Stimulation Test provides important prognostic information. This study defined 3 groups of patients with sepsis or septic shock: 1. Good Survival: Low basal cortisol (<or=34 mcg/dL) and high ACTH response (>9mcg/dL) 2.Intermediate Survival: Low basal cortisol (<34 mcg/dL) and low response to ACTH (<or=9 mcg/dL)OR High basal cortisol (>34 mcg/dL) or high ACTH response (>9 mcg/dL) 3. Poor Survival: High basal cortisol (>34 mcg/dL) and low ACTH response (<or=9 mcg/dL).Treatment of patients with relative adrenal dysfunction may be indicated based on test results and the clinical condition of the patient. Additional information, including treatment recommendations, is available in critically ill patients, approved by the Pharmacy, Nutrition, and Therapeutics Committee on 01/20/2004 and available through the Pharmacy Policy and Procedure Section on [employer].Hand Slitter ID - CJ LÓPEZ, CHEST, 1 VIEW, NON [id number] 11:01:00Reason for exam:->IABP PositionShould this be performed at the bedside?->Yes [facility] : 1980 Sex: MFINAL REPORT RAD, CHEST, 1 VIEW, NON DEPT INDICATION: IABP Position COMPARISON: Prior day's exam FINDINGS: Portable frontal view of the chest. IMPRESSION: Support Lines: IABP marker 2.8cm caudal to the aortic arch apex. Stable left PICC. Lungs and pleura: Right midlung and infrahilar airspace opacities are similar in appearance. No new lung consolidation or significant effusion. No pneumothorax.Heart and mediastinum: Stable contours. Additional findings: None. Signed: Parker Legerort Verified Date/Time: 07/03/2022 11:01:52 Electronically signed by: Tru ABBOTT 07/03/2022 11:01 AMRAD, CHEST, 1 VIEW, NON [id number] 06:58:00Reason for exam:->axillary IABPShould this be performed at the bedside?->Yes [facility] 1980 Sex: MFINAL REPORT RAD, CHEST, 1 VIEW, NON DEPT INDICATION: axillary IABP COMPARISON: Prior day's exam FINDINGS: Portable frontal view of the chest. IMPRESSION: Support Lines: IABP marker 2.9cm caudal to the aortic arch apex. No significant change. Lungs and pleura: Increased right infrahilar airspace opacities may represent worsening atelectasis, aspiration or pneumonia. No pneumothorax.Heart and mediastinum: Stable contours. Additional findings: None. Signed: Parker Leger MDReport Verified Date/Time: 07/03/2022 06:58:57 [id number] 05:58:58 Test Item Value Reference Range Interpretation Comments PHOSPHORUS (BEAKER) (test code = 4.3 mg/dL 2.3-4.7 604) Hand Slitter ID - CJ [id number] 05:58:57 Test Item Value Reference Range Interpretation Comments MAGNESIUM (BEAKER) (test code = 1.9 mg/dL 1.6-2.6 627) Hand Slitter ID - CJ WBASIC METABOLIC [id number] 05:58:56 Test Item Value Reference Range Interpretation Comments SODIUM (BEAKER) 137 meq/L 136-145 (test code = 381) POTASSIUM 4.3 meq/L 3.5-5.1 (BEAKER) (test code = 379) CHLORIDE (BEAKER) 103 meq/L 98-107 (test code = 382) CO2 (BEAKER) 23 meq/L 22-29 (test code = 355) BLOOD UREA 10 mg/dL 7-21 NITROGEN (BEAKER) (test code = 354) CREATININE 1.08 mg/dL 0.57-1.25 (BEAKER) (test code = 358) GLUCOSE RANDOM 142 mg/dL 70-105 H (BEAKER) (test code = 652) CALCIUM (BEAKER) 9.3 mg/dL 8.4-10.2 (test code = 697) EGFR (BEAKER) 89 Interpretatio n of eGFR (test code = [...] not appl icable for dialysis patien ts Hand Slitter ID Michelle CORONA WCALCIUM, [id number] 05:19:51 Test Item Value Reference Range Interpretation Comments CALCIUM IONIZED (BEAKER) (test 1.15 mmol/L 1.12-1.27 code = 698) PH, BLOOD (BEAKER) (test code = 7.37 1810) [id number] 05:17:50 Test Item Value Reference Range Interpretation Comments PARTIAL THROMBOPLASTIN TIME 70.7 seconds 22.5-36.0 H (BEAKER) (test code = 760) OXYGEN SATURATION, [id number] 05:17:10 Test Item Value Reference Range Interpretation Comments O2 SATURATION (MEASURED) (BEAKER) 75.6 % (test code = 1455) RAD, CHEST, 1 VIEW, NON [id number] 10:29:00Reason for exam:->axillary IABPShould this be performed at the bedside?->Yes [facility] 1980 Sex: MFINAL REPORT RAD, CHEST, 1 VIEW, NON DEPT INDICATION: axillary IABP COMPARISON: Prior day's exam FINDINGS: Portable frontal view of the chest. IMPRESSION: Support Lines: IABP marker 3 cm caudal to the aortic arch apex. Stable left PICC.Lungs and pleura: No focal lung consolidation or significant pleural effusion. No pneumothorax.Heart and mediastinum: Stable contours. Additional findings: None. Signed: Parker Legereport Verified Date/Time: 07/02/2022 10:29:24 DIGOXIN [id number] 05:30:36 Test Item Value Reference Range Interpretation Comments DIGOXIN LEVEL (BEAKER) (test code 0.65 ng/mL 0.80-2.00 L = 669) Hand Slitter ID - MMHEPATIC FUNCTION [id number] 04:43:01 Test Item Value Reference Range Interpretation Comments TOTAL PROTEIN (BEAKER) (test code = 7.2 gm/dL 6.0-8.3 770) ALBUMIN (BEAKER) (test code = 1145) 3.9 g/dL 3.5-5.0 BILIRUBIN TOTAL (BEAKER) (test code 0.4 mg/dL 0.2-1.2 = 377) BILIRUBIN DIRECT (BEAKER) (test 0.1 mg/dL 0.1-0.5 code = 706) ALKALINE PHOSPHATASE (BEAKER) (test 60 U/L 40-150 code = 346) AST (SGOT) (BEAKER) (test code = 13 U/L 5-34 353) ALT (SGPT) (BEAKER) (test code = 21 U/L 6-55 347) Hand Slitter ID - [id number] 04:43:00 Test Item Value Reference Range Interpretation Comments PHOSPHORUS (BEAKER) (test code = 5.4 mg/dL 2.3-4.7 H 604) Hand Slitter ID - MMBASIC METABOLIC [id number] 04:42:59 Test Item Value Reference Range Interpretation Comments SODIUM (BEAKER) 136 meq/L 136-145 (test code = 381) POTASSIUM 4.9 meq/L 3.5-5.1 (BEAKER) (test code = 379) CHLORIDE (BEAKER) 102 meq/L 98-107 (test code = 382) CO2 (BEAKER) 25 meq/L 22-29 (test code = 355) BLOOD UREA 12 mg/dL 7-21 NITROGEN (BEAKER) (test code = 354) CREATININE 1.28 mg/dL 0.57-1.25 H (BEAKER) (test code = 358) GLUCOSE RANDOM 146 mg/dL 70-105 H (BEAKER) (test code = 652) CALCIUM (BEAKER) 9.5 mg/dL 8.4-10.2 (test code = 697) EGFR (BEAKER) 73 [...] not appl icable for dialysis patien ts Hand Slitter ID - [id number] 04:42:59 Test Item Value Reference Range Interpretation Comments MAGNESIUM (BEAKER) (test code = 2.2 mg/dL 1.6-2.6 627) Hand Slitter ID - [id number] 04:41:16 Test Item Value Reference Range Interpretation Comments PARTIAL THROMBOPLASTIN TIME 80.9 seconds 22.5-36.0 H (BEAKER) (test code = 760) B-TYPE NATRIURETIC FACTOR (BNP)[id number] 04:31:08 Test Item Value Reference Range Interpretation Comments B-TYPE NATRIURETIC PEPTIDE (BEAKER) 565 pg/mL 0-100 H (test code = 700) Hand Slitter ID - ADMINCALCIUM, [id number] 04:31:07 Test Item Value Reference Range Interpretation Comments CALCIUM IONIZED (BEAKER) (test 1.17 mmol/L 1.12-1.27 code = 698) PH, BLOOD (BEAKER) (test code = 7.38 1810) OXYGEN SATURATION, [id number] 04:16:27 Test Item Value Reference Range Interpretation Comments O2 SATURATION (MEASURED) (BEAKER) 70.0 % (test code = 1455) LACTIC ACID, [id number] 04:14:30 Test Item Value Reference Range Interpretation Comments LACTATE BLOOD VENOUS (2) (BEAKER) 1.66 mmol/L 0.50-2.00 (test code = 2872) Hand Slitter ID - ADMINCBC W/PLT COUNT & AUTO [id number] 04:05:56 Test Item Value Reference Range Interpretation Comments WHITE BLOOD CELL COUNT (BEAKER) 6.4 K/ L 3.5-10.5 (test code = 775) RED BLOOD CELL COUNT (BEAKER) 3.33 M/ L 4.63-6.08 L (test code = 761) HEMOGLOBIN (BEAKER) (test code = 9.5 GM/DL 13.7-17.5 L 410) HEMATOCRIT (BEAKER) (test code = 29.8 % 40.1-51.0 L 411) MEAN CORPUSCULAR VOLUME (BEAKER) 90 fL 79-92 (test code = 753) MEAN CORPUSCULAR HEMOGLOBIN 28.5 pg 25.7-32.2 (BEAKER) (test code = 751) MEAN CORPUSCULAR HEMOGLOBIN CONC 31.9 GM/DL 32.3-36.5 L (BEAKER) (test code = 752) RED CELL DISTRIBUTION WIDTH 16.7 % 11.6-14.4 H (BEAKER) (test code = 412) PLATELET COUNT (BEAKER) (test 289 K/CU MM 150-450 code = 756) MEAN PLATELET VOLUME (BEAKER) 8.5 fL 9.4-12.4 L (test code = 754) NUCLEATED RED BLOOD CELLS 0 /100 WBC 0-0 (BEAKER) (test code = 413) NEUTROPHILS RELATIVE PERCENT 65 % (BEAKER) (test code = 429) LYMPHOCYTES RELATIVE PERCENT 20 % (BEAKER) (test code = 430) MONOCYTES RELATIVE PERCENT 9 % (BEAKER) (test code = 431) EOSINOPHILS RELATIVE PERCENT 6 % (BEAKER) (test code = 432) BASOPHILS RELATIVE PERCENT 1 % (BEAKER) (test code = 437) NEUTROPHILS ABSOLUTE COUNT 4.15 K/ L 1.78-5.38 (BEAKER) (test code = 670) LYMPHOCYTES ABSOLUTE COUNT 1.24 K/ L 1.32-3.57 L (BEAKER) (test code = 414) MONOCYTES ABSOLUTE COUNT (BEAKER) 0.54 K/ L 0.30-0.82 (test code = 415) EOSINOPHILS ABSOLUTE COUNT 0.35 K/ L 0.04-0.54 (BEAKER) (test code = 416) BASOPHILS ABSOLUTE COUNT (BEAKER) 0.06 K/ L 0.01-0.08 (test code = 417) IMMATURE GRANULOCYTES-RELATIVE 0.30 % 0.00-1.00 PERCENT (BEAKER) (test code = 2801) [id number] 18:22:21 Test Item Value Reference Range Interpretation Comments PARTIAL THROMBOPLASTIN TIME 74.1 seconds 22.5-36.0 H (BEAKER) (test code = 760) BASIC METABOLIC [id number] 14:20:04 Test Item Value Reference Range Interpretation Comments SODIUM (BEAKER) 133 meq/L 136-145 L (test code = 381) POTASSIUM 4.4 meq/L 3.5-5.1 (BEAKER) (test code = 379) CHLORIDE (BEAKER) 99 meq/L 98-107 (test code = 382) CO2 (BEAKER) 22 meq/L 22-29 (test code = 355) BLOOD UREA 12 mg/dL 7-21 NITROGEN (BEAKER) (test code = 354) CREATININE 1.18 mg/dL 0.57-1.25 (BEAKER) (test code = 358) GLUCOSE RANDOM 147 mg/dL 70-105 H (BEAKER) (test code = 652) CALCIUM (BEAKER) 9.4 mg/dL 8.4-10.2 (test code = 697) EGFR (BEAKER) 80 Interpretatio n of eGFR (test code = [...] not appl icable for dialysis patien ts Hand Slitter ID - [id number] 12:47:10 Test Item Value Reference Range Interpretation Comments PARTIAL THROMBOPLASTIN TIME 68.8 seconds 22.5-36.0 H (BEAKER) (test code = 760) HEPATIC FUNCTION [id number] 09:26:57 Test Item Value Reference Range Interpretation Comments TOTAL PROTEIN (BEAKER) 7.5 gm/dL 6.0-8.3 Speci men slightly (test code = 770) hemolyzed ALBUMIN (BEAKER) (test 3.9 g/dL 3.5-5.0 Speci men slightly code = 1145) hemolyzed BILIRUBIN TOTAL 0.3 mg/dL 0.2-1.2 Specimen sli ghtly (BEAKER) (test code = hemoly zed 377) BILIRUBIN DIRECT 0.1 mg/dL 0.1-0.5 Specimen sl ightly (BEAKER) (test code = hemoly zed 706) ALKALINE PHOSPHATASE 59 U/L 40-150 (BEAKER) (test code = 346) AST (SGOT) (BEAKER) 25 U/L 5-34 Specimen slightly (test code = 353) hemolyzed ALT (SGPT) (BEAKER) 29 U/L 6-55 Specimen slightly (test code = 347) hemolyzed Hand Slitter ID - MMRAD, CHEST, 1 VIEW, NON [id number] 08:39:00Reason for exam:- >axillary IABPShould this be performed at the bedside?->Yes [facility] 1980 Sex: MFINAL REPORT EXAM/TECHNIQUE: Single view frontal radiograph of the chest. INDICATION: Balloon pump COMPARISON: 06/30/2022. FINDINGS: Devices/Objects: Balloon pump marker is at the level of the aortopulmonary window, similar in position to prior, approximately 2.5 cm below the arch. Lungs : No focal consolidation. No pleural effusion. No pneumothorax. Heart/Mediastinum: Similar cardiomegaly and interstitial thickening. Osseous: No acute osseous process. No suspicious osseous lesion. Upper abdomen: Unremarkable. Impression: Balloon pump marker is at the level of the aortopulmonary window, similar in position to prior, approximately 2.5 cm below the arch. Signed: Barak Evans MDReport Verified Date/Time: 07/01/2022 08:39:24 [id number] 06:35:27 Test Item Value Reference Range Interpretation Comments MAGNESIUM (BEAKER) (test code = 1.9 mg/dL 1.6-2.6 627) Hand Slitter ID - [id number] 06:35:27 Test Item Value Reference Range Interpretation Comments PHOSPHORUS (BEAKER) (test code = 5.7 mg/dL 2.3-4.7 H 604) Hand Slitter ID - ADMINBASIC METABOLIC [id number] 06:35:26 Test Item Value Reference Range Interpretation Comments SODIUM (BEAKER) 135 meq/L 136-145 L (test code = 381) POTASSIUM 4.3 meq/L 3.5-5.1 (BEAKER) (test code = 379) CHLORIDE (BEAKER) 99 meq/L 98-107 (test code = 382) CO2 (BEAKER) 22 meq/L 22-29 (test code = 355) BLOOD UREA 12 mg/dL 7-21 NITROGEN (BEAKER) (test code = 354) CREATININE 1.42 mg/dL 0.57-1.25 H (BEAKER) (test code = 358) GLUCOSE RANDOM 160 mg/dL 70-105 H (BEAKER) (test code = 652) CALCIUM (BEAKER) 9.2 mg/dL 8.4-10.2 (test code = 697) EGFR (BEAKER) 64 Interpretati on of eGFR (test code = mL/min/1.73 values [...] not appl icable for dialysis patien ts Hand Slitter ID - [id number] 05:01:36 Test Item Value Reference Range Interpretation Comments PARTIAL THROMBOPLASTIN TIME 102.0 seconds 22.5-36.0 H (BEAKER) (test code = 760) LACTIC ACID, [id number] 04:36:03 Test Item Value Reference Range Interpretation Comments LACTATE BLOOD VENOUS (2) (BEAKER) 2.30 mmol/L 0.50-2.00 H (test code = 2872) Hand Slitter ID - MMCBC W/PLT COUNT & AUTO [id number] 04:35:39 Test Item Value Reference Range Interpretation Comments WHITE BLOOD CELL COUNT (BEAKER) 6.8 K/ L 3.5-10.5 (test code = 775) RED BLOOD CELL COUNT (BEAKER) 3.31 M/ L 4.63-6.08 L (test code = 761) HEMOGLOBIN (BEAKER) (test code = 9.5 GM/DL 13.7-17.5 L 410) HEMATOCRIT (BEAKER) (test code = 30.0 % 40.1-51.0 L 411) MEAN CORPUSCULAR VOLUME (BEAKER) 91 fL 79-92 (test code = 753) MEAN CORPUSCULAR HEMOGLOBIN 28.7 pg 25.7-32.2 (BEAKER) (test code = 751) MEAN CORPUSCULAR HEMOGLOBIN CONC 31.7 GM/DL 32.3-36.5 L (BEAKER) (test code = 752) RED CELL DISTRIBUTION WIDTH 17.1 % 11.6-14.4 H (BEAKER) (test code = 412) PLATELET COUNT (BEAKER) (test 307 K/CU MM 150-450 code = 756) MEAN PLATELET VOLUME (BEAKER) 8.5 fL 9.4-12.4 L (test code = 754) NUCLEATED RED BLOOD CELLS 0 /100 WBC 0-0 (BEAKER) (test code = 413) NEUTROPHILS RELATIVE PERCENT 66 % (BEAKER) (test code = 429) LYMPHOCYTES RELATIVE PERCENT 18 % (BEAKER) (test code = 430) MONOCYTES RELATIVE PERCENT 8 % (BEAKER) (test code = 431) EOSINOPHILS RELATIVE PERCENT 6 % (BEAKER) (test code = 432) BASOPHILS RELATIVE PERCENT 1 % (BEAKER) (test code = 437) NEUTROPHILS ABSOLUTE COUNT 4.52 K/ L 1.78-5.38 (BEAKER) (test code = 670) LYMPHOCYTES ABSOLUTE COUNT 1.22 K/ L 1.32-3.57 L (BEAKER) (test code = 414) MONOCYTES ABSOLUTE COUNT (BEAKER) 0.55 K/ L 0.30-0.82 (test code = 415) EOSINOPHILS ABSOLUTE COUNT 0.38 K/ L 0.04-0.54 (BEAKER) (test code = 416) BASOPHILS ABSOLUTE COUNT (BEAKER) 0.09 K/ L 0.01-0.08 H (test code = 417) IMMATURE GRANULOCYTES-RELATIVE 0.70 % 0.00-1.00 PERCENT (BEAKER) (test code = 2801) OXYGEN SATURATION, [id number] 04:23:22 Test Item Value Reference Range Interpretation Comments O2 SATURATION (MEASURED) (BEAKER) 67.6 % (test code = 1455) CALCIUM, [id number] 04:23:03 Test Item Value Reference Range Interpretation Comments CALCIUM IONIZED (BEAKER) (test 1.12 mmol/L 1.12-1.27 code = 698) PH, BLOOD (BEAKER) (test code = 7.41 1810) LACTIC ACID, [id number] 09:25:11 Test Item Value Reference Range Interpretation Comments LACTATE BLOOD VENOUS (2) (BEAKER) 1.39 mmol/L 0.50-2.00 (test code = 2872) Hand Slitter ID - MARCORAD, CHEST, 1 VIEW, NON [id number] 07:08:00Reason for exam:->axillary IABPShould this be performed at the bedside?->Yes [facility] : 1980 Sex: MFINAL REPORT Exam: RAD, CHEST, 1 VIEW, NON DEPTDate: 06/30/2022 7:07 AM Indication:axillary IABPComparison: Chest radiograph from yesterday. IMPRESSION: Lines/Tubes:Unchanged. Lungs and Pleura :Low lung volumes. Patchy opacity noted in the right infrahilar region. No pleural effusions. No pneumothorax. Heart/Mediastinum:Unchanged. Bones/Soft Tissues: No acute osseous abnormality. Upperabdomen: Unremarkable. Signed: Darleen Chavez [facility] Verified Date/Time: 06/30/2022 07:08:13 [id number] 06:27:55 Test Item Value Reference Range Interpretation Comments PARTIAL THROMBOPLASTIN TIME 72.3 seconds 22.5-36.0 H (BEAKER) (test code = 760) LACTIC ACID, [id number] 05:17:42 Test Item Value Reference Range Interpretation Comments LACTATE BLOOD VENOUS (2) (BEAKER) 2.46 mmol/L 0.50-2.00 H (test code = 2872) Hand Slitter ID - MARCOHEPATIC FUNCTION [id number] 05:10:32 Test Item Value Reference Range Interpretation Comments TOTAL PROTEIN (BEAKER) (test code = 7.1 gm/dL 6.0-8.3 770) ALBUMIN (BEAKER) (test code = 1145) 3.8 g/dL 3.5-5.0 BILIRUBIN TOTAL (BEAKER) (test code 0.3 mg/dL 0.2-1.2 = 377) BILIRUBIN DIRECT (BEAKER) (test 0.1 mg/dL 0.1-0.5 code = 706) ALKALINE PHOSPHATASE (BEAKER) (test 58 U/L 40-150 code = 346) AST (SGOT) (BEAKER) (test code = 16 U/L 5-34 353) ALT (SGPT) (BEAKER) (test code = 28 U/L 6-55 347) Hand Slitter ID - [id number] 05:10:31 Test Item Value Reference Range Interpretation Comments MAGNESIUM (BEAKER) (test code = 1.9 mg/dL 1.6-2.6 627) Hand Slitter ID - [id number] 05:10:31 Test Item Value Reference Range Interpretation Comments PHOSPHORUS (BEAKER) (test code = 4.9 mg/dL 2.3-4.7 H 604) Hand Slitter ID - MARCOBASIC METABOLIC [id number] 05:10:30 Test Item Value Reference Range Interpretation Comments SODIUM (BEAKER) 137 meq/L 136-145 (test code = 381) POTASSIUM 3.9 meq/L 3.5-5.1 (BEAKER) (test code = 379) CHLORIDE (BEAKER) 103 meq/L 98-107 (test code = 382) CO2 (BEAKER) 21 meq/L 22-29 L (test code = 355) BLOOD UREA 12 mg/dL 7-21 NITROGEN (BEAKER) (test code = 354) CREATININE 1.10 mg/dL 0.57-1.25 (BEAKER) (test code = 358) GLUCOSE RANDOM 176 mg/dL 70-105 H (BEAKER) (test code = 652) CALCIUM (BEAKER) 9.2 mg/dL 8.4-10.2 (test code = 697) EGFR (BEAKER) 87 Interpretatio n of eGFR (test code = [...] not appl icable for dialysis patien ts Hand Slitter ID - MARCOCALCIUM, [id number] 04:50:47 Test Item Value Reference Range Interpretation Comments CALCIUM IONIZED (BEAKER) (test 1.16 mmol/L 1.12-1.27 code = 698) PH, BLOOD (BEAKER) (test code = 7.37 1810) OXYGEN SATURATION, [id number] 04:49:24 Test Item Value Reference Range Interpretation Comments O2 SATURATION (MEASURED) (BEAKER) 68.4 % (test code = 1455) CBC W/PLT COUNT & AUTO [id number] 04:45:43 Test Item Value Reference Range Interpretation Comments WHITE BLOOD CELL COUNT (BEAKER) 6.6 K/ L 3.5-10.5 (test code = 775) RED BLOOD CELL COUNT (BEAKER) 3.39 M/ L 4.63-6.08 L (test code = 761) HEMOGLOBIN (BEAKER) (test code = 9.7 GM/DL 13.7-17.5 L 410) HEMATOCRIT (BEAKER) (test code = 30.7 % 40.1-51.0 L 411) MEAN CORPUSCULAR VOLUME (BEAKER) 91 fL 79-92 (test code = 753) MEAN CORPUSCULAR HEMOGLOBIN 28.6 pg 25.7-32.2 (BEAKER) (test code = 751) MEAN CORPUSCULAR HEMOGLOBIN CONC 31.6 GM/DL 32.3-36.5 L (BEAKER) (test code = 752) RED CELL DISTRIBUTION WIDTH 17.2 % 11.6-14.4 H (BEAKER) (test code = 412) PLATELET COUNT (BEAKER) (test 335 K/CU MM 150-450 code = 756) MEAN PLATELET VOLUME (BEAKER) 8.7 fL 9.4-12.4 L (test code = 754) NUCLEATED RED BLOOD CELLS 0 /100 WBC 0-0 (BEAKER) (test code = 413) NEUTROPHILS RELATIVE PERCENT 65 % (BEAKER) (test code = 429) LYMPHOCYTES RELATIVE PERCENT 20 % (BEAKER) (test code = 430) MONOCYTES RELATIVE PERCENT 8 % (BEAKER) (test code = 431) EOSINOPHILS RELATIVE PERCENT 5 % (BEAKER) (test code = 432) BASOPHILS RELATIVE PERCENT 1 % (BEAKER) (test code = 437) NEUTROPHILS ABSOLUTE COUNT 4.31 K/ L 1.78-5.38 (BEAKER) (test code = 670) LYMPHOCYTES ABSOLUTE COUNT 1.34 K/ L 1.32-3.57 (BEAKER) (test code = 414) MONOCYTES ABSOLUTE COUNT (BEAKER) 0.51 K/ L 0.30-0.82 (test code = 415) EOSINOPHILS ABSOLUTE COUNT 0.36 K/ L 0.04-0.54 (BEAKER) (test code = 416) BASOPHILS ABSOLUTE COUNT (BEAKER) 0.06 K/ L 0.01-0.08 (test code = 417) IMMATURE GRANULOCYTES-RELATIVE 0.60 % 0.00-1.00 PERCENT (BEAKER) (test code = 2801) DIGOXIN [id number] 11:35:46 Test Item Value Reference Range Interpretation Comments DIGOXIN LEVEL (BEAKER) (test code 0.45 ng/mL 0.80-2.00 L = 669) Hand Slitter ID - LAINAXYGEN SATURATION, [id number] 08:39:58 Test Item Value Reference Range Interpretation Comments O2 SATURATION (MEASURED) (BEAKER) 69.8 % (test code = 1455) LACTIC ACID, [id number] 08:22:25 Test Item Value Reference Range Interpretation Comments LACTATE BLOOD VENOUS (2) (BEAKER) 1.99 mmol/L 0.50-2.00 (test code = 2872) Hand Slitter ID - TIMORAD, CHEST, 1 VIEW, NON [id number] 07:16:00Reason for exam:->axillary IABPShould this be performed at the bedside?->Yes [facility] 1980 Sex: MFINAL REPORT Exam: RAD, CHEST, 1 VIEW, NON DEPTDate: 06/29/2022 7:16 AM Indication:axillary IABPComparison: Chest radiograph from yesterday. IMPRESSION: Lines/Tubes:Unchanged support devices and postoperative changes. Lungs and Pleura :Low lung volumes with scattered bronchovascular crowding. No pleural effusions or pneumothorax. Heart/Mediastinum:Unchanged. Bones/Soft Tissues: No acute osseous abnormality. Upper abdomen: Unremarkable. Signed: [facility] Verified Date/Time:06/29/2022 07:16:36 CBC W/PLT COUNT & AUTO DIFFERENTIAL 2022-06-29 05:17:25 Test Item Value Reference Range Interpretation Comments WHITE BLOOD CELL COUNT (BEAKER) 8.7 K/ L 3.5-10.5 (test code = 775) RED BLOOD CELL COUNT (BEAKER) 3.31 M/ L 4.63-6.08 L (test code = 761) HEMOGLOBIN (BEAKER) (test code = 9.3 GM/DL 13.7-17.5 L 410) HEMATOCRIT (BEAKER) (test code = 30.1 % 40.1-51.0 L 411) MEAN CORPUSCULAR VOLUME (BEAKER) 91 fL 79-92 (test code = 753) MEAN CORPUSCULAR HEMOGLOBIN 28.1 pg 25.7-32.2 (BEAKER) (test code = 751) MEAN CORPUSCULAR HEMOGLOBIN CONC 30.9 GM/DL 32.3-36.5 L (BEAKER) (test code = 752) RED CELL DISTRIBUTION WIDTH 17.2 % 11.6-14.4 H (BEAKER) (test code = 412) PLATELET COUNT (BEAKER) (test 340 K/CU MM 150-450 code = 756) MEAN PLATELET VOLUME (BEAKER) 8.6 fL 9.4-12.4 L (test code = 754) NUCLEATED RED BLOOD CELLS 0 /100 WBC 0-0 (BEAKER) (test code = 413) NEUTROPHILS RELATIVE PERCENT 72 % (BEAKER) (test code = 429) LYMPHOCYTES RELATIVE PERCENT 15 % (BEAKER) (test code = 430) MONOCYTES RELATIVE PERCENT 7 % (BEAKER) (test code = 431) EOSINOPHILS RELATIVE PERCENT 5 % (BEAKER) (test code = 432) BASOPHILS RELATIVE PERCENT 1 % (BEAKER) (test code = 437) NEUTROPHILS ABSOLUTE COUNT 6.20 K/ L 1.78-5.38 H (BEAKER) (test code = 670) LYMPHOCYTES ABSOLUTE COUNT 1.31 K/ L 1.32-3.57 L (BEAKER) (test code = 414) MONOCYTES ABSOLUTE COUNT (BEAKER) 0.61 K/ L 0.30-0.82 (test code = 415) EOSINOPHILS ABSOLUTE COUNT 0.42 K/ L 0.04-0.54 (BEAKER) (test code = 416) BASOPHILS ABSOLUTE COUNT (BEAKER) 0.04 K/ L 0.01-0.08 (test code = 417) IMMATURE GRANULOCYTES-RELATIVE 0.80 % 0.00-1.00 PERCENT (BEAKER) (test code = 2801) [id number] 05:10:14 Test Item Value Reference Range Interpretation Comments MAGNESIUM (BEAKER) (test code = 1.8 mg/dL 1.6-2.6 627) Hand Slitter ID - [id number] 05:10:14 Test Item Value Reference Range Interpretation Comments PHOSPHORUS (BEAKER) (test code = 4.7 mg/dL 2.3-4.7 604) Hand Slitter ID - MMBASIC METABOLIC [id number] 05:10:13 Test Item Value Reference Range Interpretation Comments SODIUM (BEAKER) 136 meq/L 136-145 (test code = 381) POTASSIUM 4.2 meq/L 3.5-5.1 (BEAKER) (test code = 379) CHLORIDE (BEAKER) 103 meq/L 98-107 (test code = 382) CO2 (BEAKER) 21 meq/L 22-29 L (test code = 355) BLOOD UREA 9 mg/dL 7-21 NITROGEN (BEAKER) (test code = 354) CREATININE 0.99 mg/dL 0.57-1.25 (BEAKER) (test code = 358) GLUCOSE RANDOM 146 mg/dL 70-105 H (BEAKER) (test code = 652) CALCIUM (BEAKER) 9.3 mg/dL 8.4-10.2 (test code = 697) EGFR (BEAKER) 99 Interpretatio n of eGFR (test code = [...] not appl icable for dialysis patien ts Hand Slitter ID - MMLACTIC ACID, [id number] 04:57:42 Test Item Value Reference Range Interpretation Comments LACTATE BLOOD VENOUS (2) (BEAKER) 2.48 mmol/L 0.50-2.00 H (test code = 2872) Hand Slitter ID - [id number] 04:46:13 Test Item Value Reference Range Interpretation Comments PARTIAL THROMBOPLASTIN TIME 81.7 seconds 22.5-36.0 H (BEAKER) (test code = 760) CALCIUM, [id number] 04:40:25 Test Item Value Reference Range Interpretation Comments CALCIUM IONIZED (BEAKER) (test 1.15 mmol/L 1.12-1.27 code = 698) PH, BLOOD (BEAKER) (test code = 7.40 1810) OXYGEN SATURATION, [id number] 04:39:46 Test Item Value Reference Range Interpretation Comments O2 SATURATION (MEASURED) (BEAKER) 60.8 % (test code = 1455) POCT-GLUCOSE [id number] 22:21:35 Test Item Value Reference Range Interpretation Comments POC-GLUCOSE METER 135 mg/dL 70-110 H : TESTED A T [facility] 6720 (BEAKER) (test code = [facility], [facility]8) [id number]: Hand Slitter/Techni macrina ID = [id number] for GERALD DALY POCT-GLUCOSE [id number] 16:12:12 Test Item Value Reference Range Interpretation Comments POC-GLUCOSE METER 115 mg/dL 70-110 H : TESTED A T [facility] 6720 (BEAKER) (test code = [facility], [facility]8) [address]: Hand Slitter/Techni macrina ID = [id number] for Nena Kaye tinajero [id number] 12:42:33 Test Item Value Reference Range Interpretation Comments PARTIAL THROMBOPLASTIN TIME 80.1 seconds 22.5-36.0 H (BEAKER) (test code = 760) POCT-GLUCOSE [id number] 12:08:01 Test Item Value Reference Range Interpretation Comments POC-GLUCOSE METER 119 mg/dL 70-110 H : TESTED A T [facility] 6720 (BEAKER) (test code = [facility], 1538) [id number]: Hand Slitter/Techni macrina ID = [id number] for Nena Kaye tinajero POCT-GLUCOSE [id number] 07:25:54 Test Item Value Reference Range Interpretation Comments POC-GLUCOSE METER 115 mg/dL 70-110 H : TESTED A T [facility] 6720 (BEAKER) (test code = [facility] [place], 1538) [address]: Hand Slitter/Techni macrina ID = [id number] for Kaye Lee RAD, CHEST, 1 VIEW, NON [id number] 06:21:00Reason for exam:->axillary IABPShould this be performed at the bedside?->Yes [facility] 1980 Sex: MFINAL REPORT CLINICAL HISTORY: axillary IABP TECHNIQUE: 1 view of the chest. COMPARISON: 06/27/2022 IMPRESSION: The supporting lines and tubes are similar appearing. There are no focal infiltrates or effusions. The cardiomediastinal silhouette is magnified by technique. The visualized bones are intact. Signed: [facility]el [facility]conne[facility] Verified Date/Time: 06/28/2022 06:21:15 PHOSPHORUS 2022-06-28 06:20:39 Test Item Value Reference Range Interpretation Comments PHOSPHORUS (BEAKER) (test code = 5.2 mg/dL 2.3-4.7 H 604) Hand Slitter ID - MMHEPATIC FUNCTION [id number] 06:20:39 Test Item Value Reference Range Interpretation Comments TOTAL PROTEIN (BEAKER) (test code = 7.1 gm/dL 6.0-8.3 770) ALBUMIN (BEAKER) (test code = 1145) 3.8 g/dL 3.5-5.0 BILIRUBIN TOTAL (BEAKER) (test code 0.2 mg/dL 0.2-1.2 = 377) BILIRUBIN DIRECT (BEAKER) (test 0.1 mg/dL 0.1-0.5 code = 706) ALKALINE PHOSPHATASE (BEAKER) (test 59 U/L 40-150 code = 346) AST (SGOT) (BEAKER) (test code = 16 U/L 5-34 353) ALT (SGPT) (BEAKER) (test code = 37 U/L 6-55 347) Hand Slitter ID - MMBASIC METABOLIC [id number] 06:20:38 Test Item Value Reference Range Interpretation Comments SODIUM (BEAKER) 137 meq/L 136-145 (test code = 381) POTASSIUM 4.3 meq/L 3.5-5.1 (BEAKER) (test code = 379) CHLORIDE (BEAKER) 104 meq/L 98-107 (test code = 382) CO2 (BEAKER) 22 meq/L 22-29 (test code = 355) BLOOD UREA 9 mg/dL 7-21 NITROGEN (BEAKER) (test code = 354) CREATININE 0.94 mg/dL 0.57-1.25 (BEAKER) (test code = 358) GLUCOSE RANDOM 110 mg/dL 70-105 H (BEAKER) (test code = 652) CALCIUM (BEAKER) 9.4 mg/dL 8.4-10.2 (test code = 697) EGFR (BEAKER) 105 Interpretatio n of eGFR (test code = [...] not appl icable for dialysis patien ts Hand Slitter ID - [id number] 06:20:38 Test Item Value Reference Range Interpretation Comments MAGNESIUM (BEAKER) (test code = 1.9 mg/dL 1.6-2.6 627) Hand Slitter ID - [id number] 05:50:39 Test Item Value Reference Range Interpretation Comments PARTIAL THROMBOPLASTIN TIME 81.9 seconds 22.5-36.0 H (BEAKER) (test code = 760) LACTIC ACID, [id number] 05:50:22 Test Item Value Reference Range Interpretation Comments LACTATE BLOOD VENOUS (2) (BEAKER) 1.53 mmol/L 0.50-2.00 (test code = 2872) Hand Slitter ID - ADMINCBC W/PLT COUNT & AUTO [id number] 05:39:06 Test Item Value Reference Range Interpretation Comments WHITE BLOOD CELL COUNT (BEAKER) 7.6 K/ L 3.5-10.5 (test code = 775) RED BLOOD CELL COUNT (BEAKER) 3.12 M/ L 4.63-6.08 L (test code = 761) HEMOGLOBIN (BEAKER) (test code = 8.9 GM/DL 13.7-17.5 L 410) HEMATOCRIT (BEAKER) (test code = 28.6 % 40.1-51.0 L 411) MEAN CORPUSCULAR VOLUME (BEAKER) 92 fL 79-92 (test code = 753) MEAN CORPUSCULAR HEMOGLOBIN 28.5 pg 25.7-32.2 (BEAKER) (test code = 751) MEAN CORPUSCULAR HEMOGLOBIN CONC 31.1 GM/DL 32.3-36.5 L (BEAKER) (test code = 752) RED CELL DISTRIBUTION WIDTH 17.3 % 11.6-14.4 H (BEAKER) (test code = 412) PLATELET COUNT (BEAKER) (test 322 K/CU MM 150-450 code = 756) MEAN PLATELET VOLUME (BEAKER) 8.1 fL 9.4-12.4 L (test code = 754) NUCLEATED RED BLOOD CELLS 0 /100 WBC 0-0 (BEAKER) (test code = 413) NEUTROPHILS RELATIVE PERCENT 65 % (BEAKER) (test code = 429) LYMPHOCYTES RELATIVE PERCENT 20 % (BEAKER) (test code = 430) MONOCYTES RELATIVE PERCENT 8 % (BEAKER) (test code = 431) EOSINOPHILS RELATIVE PERCENT 5 % (BEAKER) (test code = 432) BASOPHILS RELATIVE PERCENT 1 % (BEAKER) (test code = 437) NEUTROPHILS ABSOLUTE COUNT 4.90 K/ L 1.78-5.38 (BEAKER) (test code = 670) LYMPHOCYTES ABSOLUTE COUNT 1.52 K/ L 1.32-3.57 (BEAKER) (test code = 414) MONOCYTES ABSOLUTE COUNT (BEAKER) 0.62 K/ L 0.30-0.82 (test code = 415) EOSINOPHILS ABSOLUTE COUNT 0.35 K/ L 0.04-0.54 (BEAKER) (test code = 416) BASOPHILS ABSOLUTE COUNT (BEAKER) 0.08 K/ L 0.01-0.08 (test code = 417) IMMATURE GRANULOCYTES-RELATIVE 1.60 % 0.00-1.00 H PERCENT (BEAKER) (test code = 2801) CALCIUM, [id number] 05:37:45 Test Item Value Reference Range Interpretation Comments CALCIUM IONIZED (BEAKER) (test 1.17 mmol/L 1.12-1.27 code = 698) PH, BLOOD (AKER) (test code = 7.35 0200) OXYGEN SATURATION, [id number] 05:37:09 Test Item Value Reference Range Interpretation Comments O2 SATURATION (MEASURED) ([facility]) 79.7 % (test code = 1455) [id number] 23:28:21 Test Item Value Reference Range Interpretation Comments PARTIAL THROMBOPLASTIN TIME 59.2 seconds 22.5-36.0 H ([facility]) (test code = 760) POCT-GLUCOSE [id number] 21:56:54 Test Item Value Reference Range Interpretation Comments POC-GLUCOSE METER 319 mg/dL 70-110 H : Notified RN/MD: ([facility]) (test code = TESTED AT [place] [id number]) [facility], [id number]: Hand Slitter/Techni macrina ID = [id number] for CE LUC SANABRIA POCT-GLUCOSE [id number] 16:51:04 Test Item Value Reference Range Interpretation Comments POC-GLUCOSE METER 156 mg/dL 70-110 H : TESTED A T [facility] 67 ([facility]) (test code = [facility], 1538) [address]: Hand Slitter/Techni macrina ID = [id number] for AG GILBERTO CHASE [id number] 15:38:30 Test Item Value Reference Range Interpretation Comments PARTIAL THROMBOPLASTIN TIME 52.9 seconds 22.5-36.0 H (MIA) (test code = 760) POCT-GLUCOSE [id number] 11:53:30 Test Item Value Reference Range Interpretation Comments POC-GLUCOSE METER 127 mg/dL 70-110 H : TESTED A T [facility] 6720 (MIA) (test code = [facility], 1538) [address]: Hand Slitter/Techni macrina ID = [id number] for AG UILAR, GILBERTO RAD, CHEST, 1 VIEW, NON [id number] 10:02:00Reason for exam:->axillary IABPShould this be performed at the bedside?->Yes [facility] 1980 Sex: MFINAL REPORT CLINICAL HISTORY: axillary IABP TECHNIQUE: 1 view of the chest. COMPARISON: 06/26/2022 IMPRESSION: IABP marker 3 cm below the aortic knob. Left PICC line at the cavoatrial junction. No infiltrates or significant effusions. No cardiomegaly. Signed: Raheel Tyson Verified Date/Time: 06/27/2022 10:02:51 POCT-GLUCOSE [id number] 08:06:57 Test Item Value Reference Range Interpretation Comments POC-GLUCOSE METER 103 mg/dL 70-110 : TESTED A T [facility] 6720 (MIA) (test code = [facility], 1538) [address]: Hand Slitter/Techni macrina ID = [id number] for GILBERTO HUMPHREYS [id number] 05:02:32 Test Item Value Reference Range Interpretation Comments PARTIAL THROMBOPLASTIN TIME 48.1 seconds 22.5-36.0 H (BEAKER) (test code = 760) [id number] 03:36:04 Test Item Value Reference Range Interpretation Comments MAGNESIUM (BEAKER) (test code = 2.2 mg/dL 1.6-2.6 627) Hand Slitter ID - [id number] 03:36:04 Test Item Value Reference Range Interpretation Comments PHOSPHORUS (BEAKER) (test code = 4.3 mg/dL 2.3-4.7 604) Hand Slitter ID - ADMINBASIC METABOLIC [id number] 03:36:03 Test Item Value Reference Range Interpretation Comments SODIUM (BEAKER) 136 meq/L 136-145 (test code = 381) POTASSIUM 4.4 meq/L 3.5-5.1 (BEAKER) (test code = 379) CHLORIDE (BEAKER) 105 meq/L 98-107 (test code = 382) CO2 (BEAKER) 19 meq/L 22-29 L (test code = 355) BLOOD UREA 8 mg/dL 7-21 NITROGEN (BEAKER) (test code = 354) CREATININE 0.97 mg/dL 0.57-1.25 (BEAKER) (test code = 358) GLUCOSE RANDOM 109 mg/dL 70-105 H (BEAKER) (test code = 652) CALCIUM (BEAKER) 9.2 mg/dL 8.4-10.2 (test code = 697) EGFR (BEAKER) 101 Interpretatio n of eGFR (test code = [...] not appl icable for dialysis patien ts Hand Slitter ID - [id number] 03:03:56 Test Item Value Reference Range Interpretation Comments PARTIAL THROMBOPLASTIN TIME 127.6 seconds 22.5-36.0 H [facility] (test code = 760) LACTIC ACID, [id number] 02:56:47 Test Item Value Reference Range Interpretation Comments LACTATE BLOOD ARTERIAL (2) 1.9 mmol/L 0.5-2.0 (BEAKER) (test code = 2874) Hand Slitter ID - ADMINCALCIUM, [id number] 02:50:22 Test Item Value Reference Range Interpretation Comments CALCIUM IONIZED (BEAKER) (test 1.18 mmol/L 1.12-1.27 code = 698) PH, BLOOD (BEAKER) (test code = 7.42 1810) OXYGEN SATURATION, [id number] 02:50:02 Test Item Value Reference Range Interpretation Comments O2 SATURATION (MEASURED) (BEAKER) 81.0 % (test code = 1455) KETONE, [id number] 02:44:03 Test Item Value Reference Range Interpretation Comments KETONES, BLOOD (BEAKER) (test code 0.1 mmol/L <0.4 = 1103) POCT-GLUCOSE [id number] 21:27:59 Test Item Value Reference Range Interpretation Comments POC-GLUCOSE METER 171 mg/dL 70-110 H : Notified RN/MD: ([facility]) (test code = TESTED AT [place] [id number] 1538) [facility], [id number]: Hand Slitter/Techni macrina ID = [id number] for LUC ZAMORA [id number] 19:06:51 Test Item Value Reference Range Interpretation Comments PARTIAL THROMBOPLASTIN TIME 86.5 seconds 22.5-36.0 H ([facility]) (test code = 760) POCT-GLUCOSE [id number] 18:56:43 Test Item Value Reference Range Interpretation Comments POC-GLUCOSE METER 149 mg/dL 70-110 H : TESTED A T [facility] 67 ([facility]) (test code [facility], = 1538) [id number]: Hand Slitter/Techni macrina ID = [id number] for Kassy Mars POCT-GLUCOSE [id number] 14:57:08 Test Item Value Reference Range Interpretation Comments POC-GLUCOSE METER 113 mg/dL 70-110 H : TESTED A T C 6720 (BEAKER) (test code = FILEMON Fuentes [facility], 1538) [address]: Hand Slitter/Techni macrina ID = [id number] for GILBERTO HUMPHREYS [id number] 13:24:54 Test Item Value Reference Range Interpretation Comments PARTIAL THROMBOPLASTIN TIME 78.5 seconds 22.5-36.0 H (BEAKER) (test code = 760) POCT-GLUCOSE [id number] 07:30:40 Test Item Value Reference Range Interpretation Comments POC-GLUCOSE METER 111 mg/dL 70-110 H : TESTED A T [facility] 6720 (BEAKER) (test code = FILEMON Fuentes [facility], 1538) [address]: Hand Slitter/Techni macrina ID = [id number] for GILBERTO HUMPHREYS HEPATIC FUNCTION [id number] 07:08:48 Test Item Value Reference Range Interpretation Comments TOTAL PROTEIN (BEAKER) 7.7 gm/dL 6.0-8.3 Speci men slightly (test code = 770) hemolyzed ALBUMIN (BEAKER) (test 3.9 g/dL 3.5-5.0 Speci men slightly code = 1145) hemolyzed BILIRUBIN TOTAL 0.2 mg/dL 0.2-1.2 Specimen sli ghtly (BEAKER) (test code = hemoly zed 377) BILIRUBIN DIRECT 0.1 mg/dL 0.1-0.5 Specimen sl ightly (BEAKER) (test code = hemoly zed 706) ALKALINE PHOSPHATASE 61 U/L 40-150 (BEAKER) (test code = 346) AST (SGOT) (BEAKER) 24 U/L 5-34 Specimen slightly (test code = 353) hemolyzed ALT (SGPT) (BEAKER) 33 U/L 6-55 Specimen slightly (test code = 347) hemolyzed [id number] 07:08:47 Test Item Value Reference Range Interpretation Comments PHOSPHORUS (BEAKER) 4.7 mg/dL 2.3-4.7 Specimen slightly (test code = 604) hemolyzed BASIC METABOLIC [id number] 07:08:47 Test Item Value Reference Range Interpretation Comments SODIUM (BEAKER) 135 meq/L 136-145 L (test code = 381) POTASSIUM 4.5 meq/L 3.5-5.1 Specimen slight ly (BEAKER) (test hemolyzed code = 379) CHLORIDE (BEAKER) 103 meq/L 98-107 (test code = 382) CO2 (BEAKER) 19 meq/L 22-29 L (test code = 355) BLOOD UREA 12 mg/dL 7-21 NITROGEN (BEAKER) (test code = 354) CREATININE 0.95 mg/dL 0.57-1.25 Specimen slight ly (BEAKER) (test hemolyzed code = 358) GLUCOSE RANDOM 109 mg/dL 70-105 H (BEAKER) (test code = 652) CALCIUM (BEAKER) 9.8 mg/dL 8.4-10.2 (test code = 697) EGFR (BEAKER) 104 Interpretatio n of eGFR (test code = [...] not appl icable for dialysis patien ts [id number] 07:08:46 Test Item Value Reference Range Interpretation Comments MAGNESIUM (BEAKER) 1.9 mg/dL 1.6-2.6 Specimen slightly (test code = 627) hemolyzed RAD, CHEST, 1 VIEW, NON [id number] 07:07:00Reason for exam:->axillary IABPShould this be performed at the bedside?->Yes [facility] : 1980 Sex: MFINAL REPORT CLINICAL HISTORY: axillary IABP TECHNIQUE: 1 view of the chest. COMPARISON: 06/25/2022 IMPRESSION: IABP marker and left PICC line grossly unchanged in position. Right lowerlung atelectasis unchanged. No infiltrates or effusions. No significant cardiomegaly. Signed: Raheel Tyson MDReport Verified Date/Time: 06/26/2022 07:07:06 [id number] 05:18:42 Test Item Value Reference Range Interpretation Comments PARTIAL THROMBOPLASTIN TIME 60.7 seconds 22.5-36.0 H (BEAKER) (test code = 760) LACTIC ACID, [id number] 05:10:04 Test Item Value Reference Range Interpretation Comments LACTATE BLOOD 1.8 mmol/L 0.5-2.0 Specimen sligh tly ARTERIAL (2) (BEAKER) hemoly zed (test code = 2874) Hand Slitter ID - CJ RILEYALCIUM, [id number] 05:07:00 Test Item Value Reference Range Interpretation Comments CALCIUM IONIZED (BEAKER) (test 1.19 mmol/L 1.12-1.27 code = 698) PH, BLOOD (BEAKER) (test code = 7.36 1810) OXYGEN SATURATION, [id number] 05:06:42 Test Item Value Reference Range Interpretation Comments O2 SATURATION (MEASURED) (BEAKER) 72.8 % (test code = 1455) CBC W/PLT COUNT & AUTO [id number] 04:57:52 Test Item Value Reference Range Interpretation Comments WHITE BLOOD CELL COUNT (BEAKER) 9.3 K/ L 3.5-10.5 (test code = 775) RED BLOOD CELL COUNT (BEAKER) 3.26 M/ L 4.63-6.08 L (test code = 761) HEMOGLOBIN (BEAKER) (test code = 9.4 GM/DL 13.7-17.5 L 410) HEMATOCRIT (BEAKER) (test code = 30.0 % 40.1-51.0 L 411) MEAN CORPUSCULAR VOLUME (BEAKER) 92 fL 79-92 (test code = 753) MEAN CORPUSCULAR HEMOGLOBIN 28.8 pg 25.7-32.2 (BEAKER) (test code = 751) MEAN CORPUSCULAR HEMOGLOBIN CONC 31.3 GM/DL 32.3-36.5 L (BEAKER) (test code = 752) RED CELL DISTRIBUTION WIDTH 17.0 % 11.6-14.4 H (BEAKER) (test code = 412) PLATELET COUNT (BEAKER) (test 365 K/CU MM 150-450 code = 756) MEAN PLATELET VOLUME (BEAKER) 8.6 fL 9.4-12.4 L (test code = 754) NUCLEATED RED BLOOD CELLS 0 /100 WBC 0-0 (BEAKER) (test code = 413) NEUTROPHILS RELATIVE PERCENT 67 % (BEAKER) (test code = 429) LYMPHOCYTES RELATIVE PERCENT 20 % (BEAKER) (test code = 430) MONOCYTES RELATIVE PERCENT 8 % (BEAKER) (test code = 431) EOSINOPHILS RELATIVE PERCENT 3 % (BEAKER) (test code = 432) BASOPHILS RELATIVE PERCENT 1 % (BEAKER) (test code = 437) NEUTROPHILS ABSOLUTE COUNT 6.20 K/ L 1.78-5.38 H (BEAKER) (test code = 670) LYMPHOCYTES ABSOLUTE COUNT 1.81 K/ L 1.32-3.57 (BEAKER) (test code = 414) MONOCYTES ABSOLUTE COUNT (BEAKER) 0.71 K/ L 0.30-0.82 (test code = 415) EOSINOPHILS ABSOLUTE COUNT 0.25 K/ L 0.04-0.54 (BEAKER) (test code = 416) BASOPHILS ABSOLUTE COUNT (BEAKER) 0.08 K/ L 0.01-0.08 (test code = 417) IMMATURE GRANULOCYTES-RELATIVE 2.20 % 0.00-1.00 H PERCENT (BEAKER) (test code = 2801) POCT-GLUCOSE [id number] 21:35:07 Test Item Value Reference Range Interpretation Comments POC-GLUCOSE METER 147 mg/dL 70-110 H : TESTED Fidel Loredo [facility] 6720 (BEAKER) (test code = [place], 1538) [address]: Hand Slitter/Techni macrina ID = [id number] for DO JOAO HODGES POCT-GLUCOSE [id number] 16:48:57 Test Item Value Reference Range Interpretation Comments POC-GLUCOSE METER 124 mg/dL 70-110 H : TESTED A T [facility] 6720 (BEAKER) (test code = [facility], 1538) [address]: Hand Slitter/Techni macrina ID = [id number] for BE LL, BEAULA POCT-GLUCOSE [id number] 11:19:16 Test Item Value Reference Range Interpretation Comments POC-GLUCOSE METER 135 mg/dL 70-110 H : TESTED A T [facility] 6720 (BEAKER) (test code = [facility], 1538) [address]: Hand Slitter/Techni macrina ID = [id number] for BE LL, BEAULA RAD, CHEST, 1 VIEW, NON [id number] 08:26:00Reason for exam:->axillary IABPShould this be performed at the bedside?->Yes [facility] : 1980 Sex: MFINAL REPORT CLINICAL HISTORY: axillary IABP TECHNIQUE: 1 view of the chest. COMPARISON: 06/24/2022 IMPRESSION: The IABP catheter remains near the aortic knob. The left PICC line at the cavoatrial junction. No infiltrates or effusions. No significant cardiomegaly. Signed: Raheel Tyson Verified Date/Time: 06/25/2022 08:26:55 POCT-GLUCOSE [id number] 07:35:33 Test Item Value Reference Range Interpretation Comments POC-GLUCOSE METER 107 mg/dL 70-110 : TESTED A T [facility] 6720 (BEAKER) (test code = [place], 1538) [address]: Hand Slitter/Techni macrina ID = [id number] for BE LL, BEAULA LACTIC ACID, [id number] 04:18:54 Test Item Value Reference Range Interpretation Comments LACTATE BLOOD ARTERIAL (2) 2.0 mmol/L 0.5-2.0 (BEAKER) (test code = 2874) Hand Slitter ID - CJ WOperator ID - CJ WDIGOXIN [id number] 04:18:00 Test Item Value Reference Range Interpretation Comments DIGOXIN LEVEL (BEAKER) (test code 1.46 ng/mL 0.80-2.00 = 669) Hand Slitter ID - CJ WBASIC METABOLIC [id number] 04:11:04 Test Item Value Reference Range Interpretation Comments SODIUM (BEAKER) 137 meq/L 136-145 (test code = 381) POTASSIUM 4.5 meq/L 3.5-5.1 (BEAKER) (test code = 379) CHLORIDE (BEAKER) 104 meq/L 98-107 (test code = 382) CO2 (BEAKER) 22 meq/L 22-29 (test code = 355) BLOOD UREA 17 mg/dL 7-21 NITROGEN (BEAKER) (test code = 354) CREATININE 1.01 mg/dL 0.57-1.25 (BEAKER) (test code = 358) GLUCOSE RANDOM 104 mg/dL 70-105 (BEAKER) (test code = 652) CALCIUM (BEAKER) 10.0 mg/dL 8.4-10.2 (test code = 697) EGFR (BEAKER) 96 Interpretatio n of eGFR (test code = [...] not appl icable for dialysis patien ts Hand Slitter ID - CJ [id number] 04:11:04 Test Item Value Reference Range Interpretation Comments MAGNESIUM (BEAKER) (test code = 1.8 mg/dL 1.6-2.6 627) Hand Slitter ID - CJ [id number] 04:11:04 Test Item Value Reference Range Interpretation Comments PHOSPHORUS (BEAKER) (test code = 4.9 mg/dL 2.3-4.7 H 604) Hand Slitter ID - CJ [id number] 04:00:37 Test Item Value Reference Range Interpretation Comments PARTIAL THROMBOPLASTIN TIME 66.0 seconds 22.5-36.0 H (BEAKER) (test code = 760) B-TYPE NATRIURETIC FACTOR (BNP)2022-06-25 03:59:58 Test Item Value Reference Range Interpretation Comments B-TYPE NATRIURETIC PEPTIDE (BEAKER) 158 pg/mL 0-100 H (test code = 700) Hand Slitter ID - BSCALCIUM, [id number] 03:45:36 Test Item Value Reference Range Interpretation Comments CALCIUM IONIZED (BEAKER) (test 1.19 mmol/L 1.12-1.27 code = 698) PH, BLOOD (BEAKER) (test code = 7.37 1810) OXYGEN SATURATION, [id number] 03:44:02 Test Item Value Reference Range Interpretation Comments O2 SATURATION (MEASURED) (BEAKER) 71.4 % (test code = 1455) POCT-GLUCOSE [id number] 21:50:11 Test Item Value Reference Range Interpretation Comments POC-GLUCOSE METER 110 mg/dL 70-110 : TESTED A T [facility] 6720 (BEAKER) (test code = [facility], 1538) 470[address]: Hand Slitter/Techni macrina ID = [id number] for Abelardo Espinoza POCT-GLUCOSE [id number] 16:49:47 Test Item Value Reference Range Interpretation Comments POC-GLUCOSE METER 111 mg/dL 70-110 H : TESTED A T [facility] 6720 (BEAKER) (test code = [facility], 1538) [address]: Hand Slitter/Techni macrina ID = [id number] for JINNY ALMANZA B-TYPE NATRIURETIC FACTOR (BNP)2022-06-24 15:01:29 Test Item Value Reference Range Interpretation Comments B-TYPE NATRIURETIC PEPTIDE (BEAKER) 235 pg/mL 0-100 H (test code = 700) Hand Slitter ID - ADMINCOMPREHENSIVE METABOLIC [id number] 14:54:40 Test Item Value Reference Range Interpretation Comments TOTAL PROTEIN 7.6 gm/dL 6.0-8.3 (BEAKER) (test code = 770) ALBUMIN (BEAKER) 3.9 g/dL 3.5-5.0 (test code = 1145) ALKALINE 67 U/L 40-150 PHOSPHATASE (BEAKER) (test code = 346) BILIRUBIN TOTAL 0.2 mg/dL 0.2-1.2 (BEAKER) (test code = 377) SODIUM (BEAKER) 136 meq/L 136-145 (test code = 381) POTASSIUM (BEAKER) 4.3 meq/L 3.5-5.1 (test code = 379) CHLORIDE (BEAKER) 102 meq/L 98-107 (test code = 382) CO2 (BEAKER) (test 23 meq/L 22-29 code = 355) BLOOD UREA 16 mg/dL 7-21 NITROGEN (BEAKER) (test code = 354) CREATININE 1.03 mg/dL 0.57-1.25 (BEAKER) (test code = 358) GLUCOSE RANDOM 137 mg/dL 70-105 H (BEAKER) (test code = 652) CALCIUM (BEAKER) 10.1 mg/dL 8.4-10.2 (test code = 697) AST (SGOT) 18 U/L 5-34 (BEAKER) (test code = 353) ALT (SGPT) 34 U/L 6-55 (BEAKER) (test code = 347) EGFR (BEAKER) 94 Interpretatio n of eGFR (test code = [...] not appl icable for dialysis patien ts Hand Slitter ID - ADMINLACTIC ACID, [id number] 14:51:42 Test Item Value Reference Range Interpretation Comments LACTATE BLOOD ARTERIAL (2) 1.3 mmol/L 0.5-2.0 (BEAKER) (test code = 2874) Hand Slitter ID - ADMINOXYGEN SATURATION, [id number] 14:26:29 Test Item Value Reference Range Interpretation Comments O2 SATURATION (MEASURED) (BEAKER) 80.8 % (test code = 1455) POCT-GLUCOSE [id number] 11:52:20 Test Item Value Reference Range Interpretation Comments POC-GLUCOSE METER 161 mg/dL 70-110 H : TESTED A T [facility] 6720 ([facility]) (test code = FILEMON Alfredo [facility], 1538) 713[address]: Hand Slitter/Techni macrina ID = [id number] for JINNY ALMANZA RAD, CHEST, 1 VIEW, NON [id number] 10:57:00Reason for exam:->axillary IABPShould this be performed at the bedside?->Yes [facility] : 1980 Sex: MFINAL REPORT CLINICAL HISTORY: axillary IABP TECHNIQUE: 1 view of the chest. COMPARISON: 06/23/2022 IMPRESSION: IABP catheter remains near the aortic knob. Left PICC line remains near the cavoatrial junction. No infiltrates or effusions. No cardiomegaly. Left axillary surgical clips andskin sandrita again seen Signed: Tyson, Raheel MDReport Verified Date/Time: 06/24/2022 10:57:57 MAGNESIUM 2022-06-24 07:45:09 Test Item Value Reference Range Interpretation Comments MAGNESIUM (BEAKER) (test code = 2.0 mg/dL 1.6-2.6 627) Hand Slitter ID - GLORIA BPOCT-GLUCOSE [id number] 07:18:12 Test Item Value Reference Range Interpretation Comments POC-GLUCOSE METER 112 mg/dL 70-110 H : TESTED A T [facility] 6720 (BEAKER) (test code = [place], 1538) [address]: Hand Slitter/Techni macrina ID = [id number] for Lucila Gordon COMPREHENSIVE METABOLIC [id number] 06:25:53 Test Item Value Reference Range Interpretation Comments TOTAL PROTEIN 8.0 gm/dL 6.0-8.3 (BEAKER) (test code = 770) ALBUMIN (BEAKER) 4.1 g/dL 3.5-5.0 (test code = 1145) ALKALINE 66 U/L 40-150 PHOSPHATASE (BEAKER) (test code = 346) BILIRUBIN TOTAL 0.2 mg/dL 0.2-1.2 (BEAKER) (test code = 377) SODIUM (BEAKER) 136 meq/L 136-145 (test code = 381) POTASSIUM (BEAKER) 4.7 meq/L 3.5-5.1 (test code = 379) CHLORIDE (BEAKER) 101 meq/L 98-107 (test code = 382) CO2 (BEAKER) (test 24 meq/L 22-29 code = 355) BLOOD UREA 17 mg/dL 7-21 NITROGEN (BEAKER) (test code = 354) CREATININE 1.23 mg/dL 0.57-1.25 (BEAKER) (test code = 358) GLUCOSE RANDOM 117 mg/dL 70-105 H (BEAKER) (test code = 652) CALCIUM (BEAKER) 10.3 mg/dL 8.4-10.2 H (test code = 697) AST (SGOT) 18 U/L 5-34 (BEAKER) (test code = 353) ALT (SGPT) 35 U/L 6-55 (BEAKER) (test code = 347) EGFR (BEAKER) 76 Interpretatio n of eGFR (test code = [...] not appl icable for dialysis patien ts Hand Slitter ID - CJ [id number] 05:40:24 Test Item Value Reference Range Interpretation Comments PARTIAL THROMBOPLASTIN TIME 67.3 seconds 22.5-36.0 H (BEAKER) (test code = 760) LACTIC ACID, [id number] 05:36:00 Test Item Value Reference Range Interpretation Comments LACTATE BLOOD ARTERIAL (2) 2.0 mmol/L 0.5-2.0 (BEAKER) (test code = 2874) Hand Slitter ID Michelle CORONA WCALCIUM, [id number] 05:23:39 Test Item Value Reference Range Interpretation Comments CALCIUM IONIZED (BEAKER) (test 1.13 mmol/L 1.12-1.27 code = 698) PH, BLOOD (BEAKER) (test code = 7.30 1810) OXYGEN SATURATION, [id number] 05:22:00 Test Item Value Reference Range Interpretation Comments O2 SATURATION (MEASURED) (BEAKER) 68.6 % (test code = 1455) BASIC METABOLIC [id number] 05:04:28 Test Item Value Reference Range Interpretation Comments SODIUM (BEAKER) 142 meq/L 136-145 (test code = 381) POTASSIUM 2.7 meq/L 3.5-5.1 L (BEAKER) (test code = 379) CHLORIDE (BEAKER) 119 meq/L 98-107 H (test code = 382) CO2 (BEAKER) 14 meq/L 22-29 L (test code = 355) BLOOD UREA 11 mg/dL 7-21 NITROGEN (BEAKER) (test code = 354) CREATININE 0.68 mg/dL 0.57-1.25 (BEAKER) (test code = 358) GLUCOSE RANDOM 100 mg/dL 70-105 (BEAKER) (test code = 652) CALCIUM (BEAKER) 6.2 mg/dL 8.4-10.2 L (test code = 697) EGFR (BEAKER) 118 Interpretati on of eGFR (test code = mL/min/1.73 values [...] not appl icable for dialysis patien ts Hand Slitter ID Michelle CORONA WHEPATIC FUNCTION [id number] 04:46:05 Test Item Value Reference Range Interpretation Comments TOTAL PROTEIN (BEAKER) (test code = 4.7 gm/dL 6.0-8.3 L 770) ALBUMIN (BEAKER) (test code = 1145) 2.4 g/dL 3.5-5.0 L BILIRUBIN TOTAL (BEAKER) (test code 0.1 mg/dL 0.2-1.2 L = 377) BILIRUBIN DIRECT (BEAKER) (test 0.1 mg/dL 0.1-0.5 code = 706) ALKALINE PHOSPHATASE (BEAKER) (test 44 U/L 40-150 code = 346) AST (SGOT) (BEAKER) (test code = 15 U/L 5-34 353) ALT (SGPT) (BEAKER) (test code = 21 U/L 6-55 347) Hand Slitter ID - CJ [id number] 04:46:04 Test Item Value Reference Range Interpretation Comments MAGNESIUM (BEAKER) (test code = 1.1 mg/dL 1.6-2.6 L 627) Hand Slitter ID - CJ [id number] 04:46:04 Test Item Value Reference Range Interpretation Comments PHOSPHORUS (BEAKER) (test code = 3.0 mg/dL 2.3-4.7 604) Hand Slitter ID - CJ WLACTIC ACID, [id number] 04:40:52 Test Item Value Reference Range Interpretation Comments LACTATE BLOOD 2.8 mmol/L 0.5-2.0 H Specimen sligh tly ARTERIAL (2) (BEAKER) hemoly zed (test code = 7244) Hand Slitter ID Michelle CORONA WSpecimen slightly [id number] 03:49:05 Test Item Value Reference Range Interpretation Comments PARTIAL THROMBOPLASTIN TIME 58.8 seconds 22.5-36.0 H (BEAKER) (test code = 760) CBC W/PLT COUNT & AUTO [id number] 03:46:18 Test Item Value Reference Range Interpretation Comments WHITE BLOOD CELL COUNT 10.5 K/ L 3.5-10.5 (BEAKER) (test code = 775) RED BLOOD CELL COUNT 3.32 M/ L 4.63-6.08 L (BEAKER) (test code = 761) HEMOGLOBIN (BEAKER) 9.6 GM/DL 13.7-17.5 L (test code = 410) HEMATOCRIT (BEAKER) 30.6 % 40.1-51.0 L (test code = 411) MEAN CORPUSCULAR 92 fL 79-92 Discordant results VOLUME (BEAKER) (test compar ed to previous code = 753) results; clinic al correlation req uired MEAN CORPUSCULAR 28.9 pg 25.7-32.2 HEMOGLOBIN (BEAKER) (test code = 751) MEAN CORPUSCULAR 31.4 GM/DL 32.3-36.5 L HEMOGLOBIN CONC (BEAKER) (test code = 752) RED CELL DISTRIBUTION 17.1 % 11.6-14.4 H WIDTH (BEAKER) (test code = 412) PLATELET COUNT 374 K/CU MM 150-450 (BEAKER) (test code = 756) MEAN PLATELET VOLUME 8.8 fL 9.4-12.4 L (BEAKER) (test code = 754) NUCLEATED RED BLOOD 0 /100 WBC 0-0 CELLS (BEAKER) (test code = 413) NEUTROPHILS RELATIVE 73 % PERCENT (BEAKER) (test code = 429) LYMPHOCYTES RELATIVE 18 % PERCENT (BEAKER) (test code = 430) MONOCYTES RELATIVE 5 % PERCENT (BEAKER) (test code = 431) EOSINOPHILS RELATIVE 1 % PERCENT (BEAKER) (test code = 432) BASOPHILS RELATIVE 1 % PERCENT (BEAKER) (test code = 437) NEUTROPHILS ABSOLUTE 7.70 K/ L 1.78-5.38 H COUNT (BEAKER) (test code = 670) LYMPHOCYTES ABSOLUTE 1.93 K/ L 1.32-3.57 COUNT (BEAKER) (test code = 414) MONOCYTES ABSOLUTE 0.54 K/ L 0.30-0.82 COUNT (BEAKER) (test code = 415) EOSINOPHILS ABSOLUTE 0.14 K/ L 0.04-0.54 COUNT (BEAKER) (test code = 416) BASOPHILS ABSOLUTE 0.08 K/ L 0.01-0.08 COUNT (BEAKER) (test code = 417) IMMATURE 1.00 % 0.00-1.00 GRANULOCYTES-RELATIVE PERCENT (BEAKER) (test code = 2801) OXYGEN SATURATION, [id number] 22:33:38 Test Item Value Reference Range Interpretation Comments O2 SATURATION (MEASURED) (BEAKER) 79.8 % (test code = 1455) POCT-GLUCOSE [id number] 20:37:33 Test Item Value Reference Range Interpretation Comments POC-GLUCOSE METER 232 mg/dL 70-110 H : TESTED A T [facility] 6720 (BEAKER) (test code = [facility], 1538) [address]: Hand Slitter/Techni macrina ID = [id number] for Abelardo Espinoza LACTIC ACID, [id number] 20:33:40 Test Item Value Reference Range Interpretation Comments LACTATE BLOOD 1.4 mmol/L 0.5-2.0 Specimen sligh tly ARTERIAL (2) (BEAKER) hemoly zed (test code = 2874) Hand Slitter ID - ADMINOXYGEN SATURATION, [id number] 20:30:59 Test Item Value Reference Range Interpretation Comments O2 SATURATION (MEASURED) (BEAKER) 63.7 % (test code = 1455) POCT-GLUCOSE [id number] 17:57:25 Test Item Value Reference Range Interpretation Comments POC-GLUCOSE METER 155 mg/dL 70-110 H : TESTED A T [facility] 6720 (BEAKER) (test code = [facility], 1538) [address]: Hand Slitter/Techni macrina ID = [id number] for Sheryl Aguila LACTIC ACID, [id number] 16:03:51 Test Item Value Reference Range Interpretation Comments LACTATE BLOOD 2.4 mmol/L 0.5-2.0 H Specimen sligh tly ARTERIAL (2) (BEAKER) hemoly zed (test code = 2874) Hand Slitter ID - GLORIA BOXYGEN SATURATION, [id number] 15:52:42 Test Item Value Reference Range Interpretation Comments O2 SATURATION (MEASURED) (BEAKER) 85.9 % (test code = 1455) BASIC METABOLIC [id number] 09:23:22 Test Item Value Reference Range Interpretation Comments SODIUM (BEAKER) 134 meq/L 136-145 L (test code = 381) POTASSIUM 4.9 meq/L 3.5-5.1 (BEAKER) (test code = 379) CHLORIDE (BEAKER) 102 meq/L 98-107 (test code = 382) CO2 (BEAKER) 22 meq/L 22-29 (test code = 355) BLOOD UREA 15 mg/dL 7-21 NITROGEN (BEAKER) (test code = 354) CREATININE 1.03 mg/dL 0.57-1.25 (BEAKER) (test code = 358) GLUCOSE RANDOM 132 mg/dL 70-105 H (BEAKER) (test code = 652) CALCIUM (BEAKER) 10.0 mg/dL 8.4-10.2 (test code = 697) EGFR (BEAKER) 94 Interpretatio n of eGFR (test code = [...] not appl icable for dialysis patien ts Hand Slitter ID - [id number] 09:21:43 Test Item Value Reference Range Interpretation Comments MAGNESIUM (BEAKER) (test code = 2.4 mg/dL 1.6-2.6 627) Hand Slitter ID - ADMINRAD, CHEST, 1 VIEW, NON [id number] 07:17:00Reason for exam:->axillary IABPShould this be performed at the bedside?->Yes [facility] 1980 Sex: MFINAL REPORT Chest one view: HISTORY: Axillary IABP Compared to 06/22/2022. The lungs remain clear and cardiac size within normal limits. There is no pleural effusion. The [place] catheter has been removed in the interval. The remaining support apparatus is not significantly changed in position. Signed: Yvrose [place] MDReport Verified Date/Time: 06/23/2022 07:17:28 Electronicallysigned by: YVROSE [place] MD on 06/23/2022 07:17 AM LACTIC ACID, [id number] 04:46:25 Test Item Value Reference Range Interpretation Comments LACTATE BLOOD ARTERIAL (2) 1.9 mmol/L 0.5-2.0 (BEAKER) (test code = 2874) Hand Slitter ID - ADMINCALCIUM, [id number] 04:37:33 Test Item Value Reference Range Interpretation Comments CALCIUM IONIZED (BEAKER) (test 1.14 mmol/L 1.12-1.27 code = 698) PH, BLOOD (BEAKER) (test code = 7.36 1810) OXYGEN SATURATION, [id number] 04:36:13 Test Item Value Reference Range Interpretation Comments O2 SATURATION (MEASURED) (BEAKER) 70.8 % (test code = 1455) BASIC METABOLIC [id number] 04:33:07 Test Item Value Reference Range Interpretation Comments SODIUM (BEAKER) 140 meq/L 136-145 (test code = 381) POTASSIUM 3.0 meq/L 3.5-5.1 L (BEAKER) (test code = 379) CHLORIDE (BEAKER) 114 meq/L 98-107 H (test code = 382) CO2 (BEAKER) 17 meq/L 22-29 L (test code = 355) BLOOD UREA 12 mg/dL 7-21 NITROGEN (BEAKER) (test code = 354) CREATININE 0.77 mg/dL 0.57-1.25 (BEAKER) (test code = 358) GLUCOSE RANDOM 102 mg/dL 70-105 (BEAKER) (test code = 652) CALCIUM (BEAKER) 7.0 mg/dL 8.4-10.2 L (test code = 697) EGFR (BEAKER) 115 Interpretatio n of eGFR (test code = [...] not appl icable for dialysis patien ts Hand Slitter ID - [id number] 04:30:25 Test Item Value Reference Range Interpretation Comments MAGNESIUM (BEAKER) (test code = 1.3 mg/dL 1.6-2.6 L 627) Hand Slitter ID - [id number] 04:30:25 Test Item Value Reference Range Interpretation Comments PHOSPHORUS (BEAKER) (test code = 4.0 mg/dL 2.3-4.7 604) Hand Slitter ID - [id number] 04:01:56 Test Item Value Reference Range Interpretation Comments PARTIAL THROMBOPLASTIN TIME 66.0 seconds 22.5-36.0 H (BEAKER) (test code = 760) CBC W/PLT COUNT & AUTO [id number] 03:54:47 Test Item Value Reference Range Interpretation Comments WHITE BLOOD CELL COUNT 7.9 K/ L 3.5-10.5 (BEAKER) (test code = 775) RED BLOOD CELL COUNT 3.30 M/ L 4.63-6.08 L (BEAKER) (test code = 761) HEMOGLOBIN (BEAKER) 9.1 GM/DL 13.7-17.5 L (test code = 410) HEMATOCRIT (BEAKER) 29.1 % 40.1-51.0 L (test code = 411) MEAN CORPUSCULAR 88 fL 79-92 Discordant results VOLUME (BEAKER) (test compar ed to previous code = 753) results; clinic al correlation req uired MEAN CORPUSCULAR 27.6 pg 25.7-32.2 HEMOGLOBIN (BEAKER) (test code = 751) MEAN CORPUSCULAR 31.3 GM/DL 32.3-36.5 L HEMOGLOBIN CONC (BEAKER) (test code = 752) RED CELL DISTRIBUTION 17.1 % 11.6-14.4 H WIDTH (BEAKER) (test code = 412) PLATELET COUNT 330 K/CU MM 150-450 (BEAKER) (test code = 756) MEAN PLATELET VOLUME 8.4 fL 9.4-12.4 L (BEAKER) (test code = 754) NUCLEATED RED BLOOD 0 /100 WBC 0-0 CELLS (BEAKER) (test code = 413) NEUTROPHILS RELATIVE 65 % PERCENT (BEAKER) (test code = 429) LYMPHOCYTES RELATIVE 21 % PERCENT (BEAKER) (test code = 430) MONOCYTES RELATIVE 9 % PERCENT (BEAKER) (test code = 431) EOSINOPHILS RELATIVE 3 % PERCENT (BEAKER) (test code = 432) BASOPHILS RELATIVE 1 % PERCENT (BEAKER) (test code = 437) NEUTROPHILS ABSOLUTE 5.15 K/ L 1.78-5.38 COUNT (BEAKER) (test code = 670) LYMPHOCYTES ABSOLUTE 1.65 K/ L 1.32-3.57 COUNT (BEAKER) (test code = 414) MONOCYTES ABSOLUTE 0.67 K/ L 0.30-0.82 COUNT (BEAKER) (test code = 415) EOSINOPHILS ABSOLUTE 0.23 K/ L 0.04-0.54 COUNT (BEAKER) (test code = 416) BASOPHILS ABSOLUTE 0.08 K/ L 0.01-0.08 COUNT (BEAKER) (test code = 417) IMMATURE 1.50 % 0.00-1.00 H GRANULOCYTES-RELATIVE PERCENT (BEAKER) (test code = 2801) CORTISOL,60 [id number] 15:33:26 Test Item Value Reference Range Interpretation Comments CORTISOL BASELINE NETWORKED 13.0 mcg/dL (BEAKER) (test code = 2307) CORTISOL 30 MINUTE NETWORKED 18.3 mcg/dL (BEAKER) (test code = 2308) CORTISOL, 60 MINUTE (BEAKER) 19.3 ug/dL (test code = 1805) ACTH STIMULATION TEST INTERPRETATION GUIDELINES(Synonyms: Cortrosyn Test, Cosyntropin or Corticotropin Stimulation Test)Adenocorticotropic hormone (ACTH)is a tropic hormone, made in the pituitary gland, which travels trhough the bloodstream and stimulates the cortex of the adrenal glands to release co rtisol. Cortisol is a primary hormone, which aids the body's metabolism of fats, carbohydrates, and protein as well as sodium and potassium regulation.ACTH Stimulation Test: Exogenous administration ofbiologically active ACTH stimulates the secretion of cortisol from the adrenal gland. This test is used to evaluate adrenal function by measuring cortisol levels at baseline and at 30 and 60 minutes after the administration of 250 micrograms of cosyntropin (Cortrosyn). Patients who have received exogenous corticosteroids immediately prior to performing the ACTH Stimulation Test will often have elevated baseline cortisol levels, which may lead to erroneous interpretation of test results. The notable exception is with dexamethasone.Normal Response: An increase in cortisol after stimulation by ACTH isnormal. Post-stimulation cortisol concentration should be greater than 20 mcg/dL or the rate of risefrom baseline cortisol should be greater than or equal to 9 mcg/dL.Patients with sepsis or septic shock: According to a study by Rosa et al (SUSAN 2000,283(8):1038-45), the ACTH Stimulation Test provides important prognostic information. This study defined 3 groups of patients with sepsis or septic shock: 1. Good Survival: Low basal cortisol (<or=34 mcg/dL) and high ACTH response (>9mcg/dL) 2.Intermediate Survival: Low basal cortisol (<34 mcg/dL) and low response to ACTH (<or=9 mcg/dL)OR High basal cortisol (>34 mcg/dL) or high ACTH response (>9 mcg/dL) 3. Poor Survival: High basal cortisol (>34 mcg/dL) and low ACTH response (<or=9 mcg/dL).Treatment of patients with relative adrenal dysfunction may be indicated based on test results and the clinical condition of the patient. Additional information, including treatment recommendations, is available in critically ill patients, approved by the Pharmacy, Nutrition, and Therapeutics Committee on 01/20/2004 and available through the Pharmacy Policy and Procedure Section on [employer].Hand Slitter ID - MMCORTISOL,30 [id number] 15:33:14 Test Item Value Reference Range Interpretation Comments CORTISOL BASELINE NETWORKED 13.0 mcg/dL (BEAKER) (test code = 2307) CORTISOL, 30 MINUTE (BEAKER) 18.3 ug/dL (test code = 1804) ACTH STIMULATION TEST INTERPRETATION GUIDELINES(Synonyms: Cortrosyn Test, Cosyntropin or Corticotropin Stimulation Test)Adenocorticotropic hormone (ACTH)is a tropic hormone, made in the pituitary gland, which travels trhough the bloodstream and stimulates the cortex of the adrenal glands to release co rtisol. Cortisol is a primary hormone, which aids the body's metabolism of fats, carbohydrates, and protein as well as sodium and potassium regulation.ACTH Stimulation Test: Exogenous administration ofbiologically active ACTH stimulates the secretion of cortisol from the adrenal gland. This test is used to evaluate adrenal function by measuring cortisol levels at baseline and at 30 and 60 minutes after the administration of 250 micrograms of cosyntropin (Cortrosyn). Patients who have received exogenous corticosteroids immediately prior to performing the ACTH Stimulation Test will often have elevated baseline cortisol levels, which may lead to erroneous interpretation of test results. The notable exception is with dexamethasone.Normal Response: An increase in cortisol after stimulation by ACTH isnormal. Post-stimulation cortisol concentration should be greater than 20 mcg/dL or the rate of risefrom baseline cortisol should be greater than or equal to 9 mcg/dL.Patients with sepsis or septic shock: According to a study by Rosa et al (SUSAN 2000,283(8):1038-45), the ACTH Stimulation Test provides important prognostic information. This study defined 3 groups of patients with sepsis or septic shock: 1. Good Survival: Low basal cortisol (<or=34 mcg/dL) and high ACTH response (>9mcg/dL) 2.Intermediate Survival: Low basal cortisol (<34 mcg/dL) and low response to ACTH (<or=9 mcg/dL)OR High basal cortisol (>34 mcg/dL) or high ACTH response (>9 mcg/dL) 3. Poor Survival: High basal cortisol (>34 mcg/dL) and low ACTH response (<or=9 mcg/dL).Treatment of patients with relative adrenal dysfunction may be indicated based on test results and the clinical condition of the patient. Additional information, including treatment recommendations, is available in critically ill patients, approved by the Pharmacy, Nutrition, and Therapeutics Committee on 01/20/2004 and available through the Pharmacy Policy and Procedure Section on [employer].Hand Slitter ID - MMCORTISOL,[id number] 15:18:07 Test Item Value Reference Range Interpretation Comments CORTISOL, BASELINE (BEAKER) (test 13.0 ug/dL code = 1803) ACTH STIMULATION TEST INTERPRETATION GUIDELINES(Synonyms: Cortrosyn Test, Cosyntropin or Corticotropin Stimulation Test)Adenocorticotropic hormone (ACTH)is a tropic hormone, made in the pituitary gland, which travels trhough the bloodstream and stimulates the cortex of the adrenal glands to release co rtisol. Cortisol is a primary hormone, which aids the body's metabolism of fats, carbohydrates, and protein as well as sodium and potassium regulation.ACTH Stimulation Test: Exogenous administration ofbiologically active ACTH stimulates the secretion of cortisol from the adrenal gland. This test is used to evaluate adrenal function by measuring cortisol levels at baseline and at 30 and 60 minutes after the administration of 250 micrograms of cosyntropin (Cortrosyn). Patients who have received exogenous corticosteroids immediately prior to performing the ACTH Stimulation Test will often have elevated baseline cortisol levels, which may lead to erroneous interpretation of test results. The notable exception is with dexamethasone.Normal Response: An increase in cortisol after stimulation by ACTH isnormal. Post-stimulation cortisol concentration should be greater than 20 mcg/dL or the rate of risefrom baseline cortisol should be greater than or equal to 9 mcg/dL.Patients with sepsis or septic shock: According to a study by Rosa et al (SUSAN 2000,283(8):1038-45), the ACTH Stimulation Test provides important prognostic information. This study defined 3 groups of patients with sepsis or septic shock: 1. Good Survival: Low basal cortisol (<or=34 mcg/dL) and high ACTH response (>9mcg/dL) 2.Intermediate Survival: Low basal cortisol (<34 mcg/dL) and low response to ACTH (<or=9 mcg/dL)OR High basal cortisol (>34 mcg/dL) or high ACTH response (>9 mcg/dL) 3. Poor Survival: High basal cortisol (>34 mcg/dL) and low ACTH response (<or=9 mcg/dL).Treatment of patients with relative adrenal dysfunction may be indicated based on test results and the clinical condition of the patient. Additional information, including treatment recommendations, is available in critically ill patients, approved by the Pharmacy, Nutrition, and Therapeutics Committee on 01/20/2004 and available through the Pharmacy Policy and Procedure Section on [employer].Hand Slitter ID - MMRAD, CHEST, 1 VIEW, NON DEPT 2022-06-22 10:37:00Reason for exam:->axillary IABPShould this be performed at the bedside?->Yes [facility] 1980 Sex: MFINAL REPORT Chest one view: HISTORY: Axillary IABP Compared to 06/21/2022. The lungsare clear. Cardiac size is within normal limits. An IABP marker is unchanged in position in the proximal descending thoracic aorta. A right jugular [place] catheter and left-sided PICC line also appear unchanged in position. Signed: Yvrose [place] [facility] Verified Date/Time: 06/22/2022 10:37:49 DIGOXIN [id number] 06:13:07 Test Item Value Reference Range Interpretation Comments DIGOXIN LEVEL (BEAKER) (test code 1.31 ng/mL 0.80-2.00 = 669) Hand Slitter ID - MMHEPATIC FUNCTION [id number] 05:25:58 Test Item Value Reference Range Interpretation Comments TOTAL PROTEIN (BEAKER) (test code = 7.7 gm/dL 6.0-8.3 770) ALBUMIN (BEAKER) (test code = 1145) 3.9 g/dL 3.5-5.0 BILIRUBIN TOTAL (BEAKER) (test code 0.2 mg/dL 0.2-1.2 = 377) BILIRUBIN DIRECT (BEAKER) (test 0.1 mg/dL 0.1-0.5 code = 706) ALKALINE PHOSPHATASE (BEAKER) (test 65 U/L 40-150 code = 346) AST (SGOT) (BEAKER) (test code = 17 U/L 5-34 353) ALT (SGPT) (BEAKER) (test code = 32 U/L 6-55 347) Hand Slitter ID - [id number] 05:25:57 Test Item Value Reference Range Interpretation Comments MAGNESIUM (BEAKER) (test code = 2.3 mg/dL 1.6-2.6 627) Hand Slitter ID - [id number] 05:25:57 Test Item Value Reference Range Interpretation Comments PHOSPHORUS (BEAKER) (test code = 4.7 mg/dL 2.3-4.7 604) Hand Slitter ID - ADMINBASIC METABOLIC [id number] 05:25:56 Test Item Value Reference Range Interpretation Comments SODIUM (BEAKER) 136 meq/L 136-145 (test code = 381) POTASSIUM 4.6 meq/L 3.5-5.1 (BEAKER) (test code = 379) CHLORIDE (BEAKER) 103 meq/L 98-107 (test code = 382) CO2 (BEAKER) 20 meq/L 22-29 L (test code = 355) BLOOD UREA 9 mg/dL 7-21 NITROGEN (BEAKER) (test code = 354) CREATININE 0.99 mg/dL 0.57-1.25 (BEAKER) (test code = 358) GLUCOSE RANDOM 98 mg/dL 70-105 (BEAKER) (test code = 652) CALCIUM (BEAKER) 9.8 mg/dL 8.4-10.2 (test code = 697) EGFR (BEAKER) 99 Interpretatio n of eGFR (test code = [...] not appl icable for dialysis patien ts Hand Slitter ID - ADMINCBC W/PLT COUNT & AUTO [id number] 04:51:58 Test Item Value Reference Range Interpretation Comments WHITE BLOOD CELL COUNT (BEAKER) 8.5 K/ L 3.5-10.5 (test code = 775) RED BLOOD CELL COUNT (BEAKER) 3.13 M/ L 4.63-6.08 L (test code = 761) HEMOGLOBIN (BEAKER) (test code = 8.8 GM/DL 13.7-17.5 L 410) HEMATOCRIT (BEAKER) (test code = 28.9 % 40.1-51.0 L 411) MEAN CORPUSCULAR VOLUME (BEAKER) 92 fL 79-92 (test code = 753) MEAN CORPUSCULAR HEMOGLOBIN 28.1 pg 25.7-32.2 (BEAKER) (test code = 751) MEAN CORPUSCULAR HEMOGLOBIN CONC 30.4 GM/DL 32.3-36.5 L (BEAKER) (test code = 752) RED CELL DISTRIBUTION WIDTH 17.3 % 11.6-14.4 H (BEAKER) (test code = 412) PLATELET COUNT (BEAKER) (test 315 K/CU MM 150-450 code = 756) MEAN PLATELET VOLUME (BEAKER) 8.3 fL 9.4-12.4 L (test code = 754) NUCLEATED RED BLOOD CELLS 0 /100 WBC 0-0 (BEAKER) (test code = 413) NEUTROPHILS RELATIVE PERCENT 66 % (BEAKER) (test code = 429) LYMPHOCYTES RELATIVE PERCENT 17 % (BEAKER) (test code = 430) MONOCYTES RELATIVE PERCENT 11 % (BEAKER) (test code = 431) EOSINOPHILS RELATIVE PERCENT 3 % (BEAKER) (test code = 432) BASOPHILS RELATIVE PERCENT 1 % (BEAKER) (test code = 437) NEUTROPHILS ABSOLUTE COUNT 5.62 K/ L 1.78-5.38 H (BEAKER) (test code = 670) LYMPHOCYTES ABSOLUTE COUNT 1.45 K/ L 1.32-3.57 (BEAKER) (test code = 414) MONOCYTES ABSOLUTE COUNT (BEAKER) 0.93 K/ L 0.30-0.82 H (test code = 415) EOSINOPHILS ABSOLUTE COUNT 0.23 K/ L 0.04-0.54 (BEAKER) (test code = 416) BASOPHILS ABSOLUTE COUNT (BEAKER) 0.08 K/ L 0.01-0.08 (test code = 417) IMMATURE GRANULOCYTES-RELATIVE 1.90 % 0.00-1.00 H PERCENT (BEAKER) (test code = 2801) LACTIC ACID, [id number] 04:44:03 Test Item Value Reference Range Interpretation Comments LACTATE BLOOD ARTERIAL (2) 1.5 mmol/L 0.5-2.0 (BEAKER) (test code = 2874) Hand Slitter ID - [id number] 04:39:43 Test Item Value Reference Range Interpretation Comments PARTIAL THROMBOPLASTIN TIME 68.1 seconds 22.5-36.0 H (BEAKER) (test code = 760) CALCIUM, [id number] 04:25:41 Test Item Value Reference Range Interpretation Comments CALCIUM IONIZED (BEAKER) (test 1.21 mmol/L 1.12-1.27 code = 698) PH, BLOOD (BEAKER) (test code = 7.39 1810) OXYGEN SATURATION, [id number] 04:24:23 Test Item Value Reference Range Interpretation Comments O2 SATURATION (MEASURED) (BEAKER) 77.2 % (test code = 1455) CT, BRAIN, WITHOUT [id number] 01:13:00Reason for Exam (Free Text) - Addiitonal information for Radiologist->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 Dose modulation, iterative reconstruction, and/or weight based adjustment of the mA/kV was utilized to reduce the radiation doseto as low as reasonably achievable. INDICATION: Recent embolic stroke. COMPARISON: CT head from 023. FINDINGS: Hunt-white differentiation is preserved. No acute intracranial hemorrhage. No extra-axial fluid collection. Ventricles are normal in appearance. Basal cisterns are patent. No midline shift. Cerebellar tonsils are normal in appearance. Orbits are normal. Mild left maxillary sinus mucosal thickening. Mastoid air cells are clear. No acute osseous processes or suspicious osseous lesion. Midline structures are normal. Visualized face and neck are unremarkable. Impression: No acute intracranial process. Signed: Barak Evans MDReport Verified Date/Time: 06/22/2022 01:13:51 [id number] 17:08:02 Test Item Value Reference Range Interpretation Comments CORTISOL, TOTAL (BEAKER) (test 12.0 ug/dL 3.7-19.4 code = 2755) Hand Slitter ID - BSCOMPREHENSIVE METABOLIC [id number] 13:21:51 Test Item Value Reference Range Interpretation Comments TOTAL PROTEIN 7.5 gm/dL 6.0-8.3 (BEAKER) (test code = 770) ALBUMIN (BEAKER) 3.8 g/dL 3.5-5.0 (test code = 1145) ALKALINE 67 U/L 40-150 PHOSPHATASE (BEAKER) (test code = 346) BILIRUBIN TOTAL 0.2 mg/dL 0.2-1.2 (BEAKER) (test code = 377) SODIUM (BEAKER) 137 meq/L 136-145 (test code = 381) POTASSIUM (BEAKER) 5.1 meq/L 3.5-5.1 (test code = 379) CHLORIDE (BEAKER) 106 meq/L 98-107 (test code = 382) CO2 (BEAKER) (test 22 meq/L 22-29 code = 355) BLOOD UREA 10 mg/dL 7-21 NITROGEN (BEAKER) (test code = 354) CREATININE 0.92 mg/dL 0.57-1.25 (BEAKER) (test code = 358) GLUCOSE RANDOM 121 mg/dL 70-105 H (BEAKER) (test code = 652) CALCIUM (BEAKER) 9.5 mg/dL 8.4-10.2 (test code = 697) AST (SGOT) 20 U/L 5-34 (BEAKER) (test code = 353) ALT (SGPT) 33 U/L 6-55 (BEAKER) (test code = 347) EGFR (BEAKER) 108 Interpretati on of eGFR (test code = 1092) mL/min/1.73 [...] not appl icable for dialysis patien ts Hand Slitter ID - [id number] 13:16:13 Test Item Value Reference Range Interpretation Comments MAGNESIUM (BEAKER) (test code = 3.1 mg/dL 1.6-2.6 H 627) Hand Slitter ID - ADMINLACTIC ACID, [id number] 13:12:12 Test Item Value Reference Range Interpretation Comments LACTATE BLOOD VENOUS (2) (BEAKER) 1.36 mmol/L 0.50-2.00 (test code = 2872) Hand Slitter ID - ADMINOXYGEN SATURATION, [id number] 12:45:00 Test Item Value Reference Range Interpretation Comments O2 SATURATION (MEASURED) (MIA) 70.8 % (test code = 1455) POCT-GLUCOSE [id number] 09:57:31 Test Item Value Reference Range Interpretation Comments POC-GLUCOSE METER 152 mg/dL 70-110 H : TESTED A T BSC 6720 (MIA) (test code = [place], 1538) [address]: Hand Slitter/Techni macrina ID = [id number] for JINNY ALMANZA RAD, CHEST, 1 VIEW, NON [id number] 07:21:00Reason for exam:->axillary IABPShould this be performed at the bedside?->Yes [facility] 1980 Sex: MFINAL REPORT RAD, CHEST, 1 VIEW, NON DEPT INDICATION: axillary IABP COMPARISON: Prior day's exam TECHNIQUE: Portable frontal view(s) of the chest. FINDINGS: Support Lines and Devices: Stable. Lungs and pleura: Unchanged airspace and pleural opacities. No pneumothorax identified. Heart and mediastinum: Stable contours. Stable surgical changes. Additional findings: Surgical clips in theleft subclavian region with nonspecific overlying tubing. IMPRESSION: No significant change from prior exam. No focal consolidation. Signed: Timur Vazquez Verified Date/Time: 06/21/2022 07:21:08 Reading Location: [address] Reading Room BASIC METABOLIC [id number] 06:51:27 Test Item Value Reference Range Interpretation Comments SODIUM (BEAKER) 142 meq/L 136-145 (test code = 381) POTASSIUM 3.0 meq/L 3.5-5.1 L (BEAKER) (test code = 379) CHLORIDE (BEAKER) 119 meq/L 98-107 H (test code = 382) CO2 (BEAKER) 15 meq/L 22-29 L (test code = 355) BLOOD UREA 9 mg/dL 7-21 NITROGEN (BEAKER) (test code = 354) CREATININE 0.65 mg/dL 0.57-1.25 (BEAKER) (test code = 358) GLUCOSE RANDOM 63 mg/dL 70-105 L (BEAKER) (test code = 652) CALCIUM (BEAKER) 6.6 mg/dL 8.4-10.2 L (test code = 697) EGFR (BEAKER) 120 Interpretatio n of eGFR (test code = [...] not appl icable for dialysis patien ts Hand Slitter ID - mmOperator ID - [id number] 05:47:18 Test Item Value Reference Range Interpretation Comments PHOSPHORUS (BEAKER) (test code = 3.1 mg/dL 2.3-4.7 604) Hand Slitter ID - [id number] 05:47:17 Test Item Value Reference Range Interpretation Comments MAGNESIUM (BEAKER) (test code = 1.4 mg/dL 1.6-2.6 L 627) Hand Slitter ID - mmLACTIC ACID, [id number] 04:42:07 Test Item Value Reference Range Interpretation Comments LACTATE BLOOD ARTERIAL (2) 1.7 mmol/L 0.5-2.0 (BEAKER) (test code = 2874) Hand Slitter ID - mmOXYGEN SATURATION, [id number] 04:31:54 Test Item Value Reference Range Interpretation Comments O2 SATURATION (MEASURED) (BEAKER) 66.5 % (test code = 1455) [id number] 04:17:01 Test Item Value Reference Range Interpretation Comments PARTIAL THROMBOPLASTIN TIME 72.1 seconds 22.5-36.0 H (BEAKER) (test code = 760) CBC W/PLT COUNT & AUTO [id number] 04:13:59 Test Item Value Reference Range Interpretation Comments WHITE BLOOD CELL COUNT (BEAKER) 7.7 K/ L 3.5-10.5 (test code = 775) RED BLOOD CELL COUNT (BEAKER) 2.89 M/ L 4.63-6.08 L (test code = 761) HEMOGLOBIN (BEAKER) (test code = 8.2 GM/DL 13.7-17.5 L 410) HEMATOCRIT (BEAKER) (test code = 26.6 % 40.1-51.0 L 411) MEAN CORPUSCULAR VOLUME (BEAKER) 92 fL 79-92 (test code = 753) MEAN CORPUSCULAR HEMOGLOBIN 28.4 pg 25.7-32.2 (BEAKER) (test code = 751) MEAN CORPUSCULAR HEMOGLOBIN CONC 30.8 GM/DL 32.3-36.5 L (BEAKER) (test code = 752) RED CELL DISTRIBUTION WIDTH 17.1 % 11.6-14.4 H (BEAKER) (test code = 412) PLATELET COUNT (BEAKER) (test 293 K/CU MM 150-450 code = 756) MEAN PLATELET VOLUME (BEAKER) 8.5 fL 9.4-12.4 L (test code = 754) NUCLEATED RED BLOOD CELLS 0 /100 WBC 0-0 (BEAKER) (test code = 413) NEUTROPHILS RELATIVE PERCENT 64 % (BEAKER) (test code = 429) LYMPHOCYTES RELATIVE PERCENT 19 % (BEAKER) (test code = 430) MONOCYTES RELATIVE PERCENT 9 % (BEAKER) (test code = 431) EOSINOPHILS RELATIVE PERCENT 4 % (BEAKER) (test code = 432) BASOPHILS RELATIVE PERCENT 1 % (BEAKER) (test code = 437) NEUTROPHILS ABSOLUTE COUNT 4.90 K/ L 1.78-5.38 (BEAKER) (test code = 670) LYMPHOCYTES ABSOLUTE COUNT 1.49 K/ L 1.32-3.57 (BEAKER) (test code = 414) MONOCYTES ABSOLUTE COUNT (BEAKER) 0.68 K/ L 0.30-0.82 (test code = 415) EOSINOPHILS ABSOLUTE COUNT 0.32 K/ L 0.04-0.54 (BEAKER) (test code = 416) BASOPHILS ABSOLUTE COUNT (BEAKER) 0.10 K/ L 0.01-0.08 H (test code = 417) IMMATURE GRANULOCYTES-RELATIVE 2.50 % 0.00-1.00 H PERCENT (BEAKER) (test code = 2801) LACTIC ACID, [id number] 21:01:37 Test Item Value Reference Range Interpretation Comments LACTATE BLOOD ARTERIAL (2) 1.2 mmol/L 0.5-2.0 (BEAKER) (test code = 2874) Hand Slitter ID - ADMINOXYGEN SATURATION, [id number] 19:46:25 Test Item Value Reference Range Interpretation Comments O2 SATURATION (MEASURED) (BEAKER) 82.1 % (test code = 1455) LACTIC ACID, [id number] 13:19:09 Test Item Value Reference Range Interpretation Comments LACTATE BLOOD ARTERIAL (2) 1.4 mmol/L 0.5-2.0 (BEAKER) (test code = 2874) Hand Slitter ID - ADMINOXYGEN SATURATION, [id number] 13:05:31 Test Item Value Reference Range Interpretation Comments O2 SATURATION (MEASURED) (BEAKER) 72.5 % (test code = 1455) RAD, CHEST, 1 VIEW, NON [id number] 07:59:00Reason for exam:->axillary IABPShould this be performed at the bedside?->Yes [facility] : 1980 Sex: MFINAL REPORT RAD, CHEST, 1 VIEW, NON DEPT INDICATION: axillary IABP COMPARISON: Prior day's exam TECHNIQUE: Portable frontal view(s) of the chest. FINDINGS: Support Lines and Devices: Stable. Lungs and pleura: Unchanged airspace and pleural opacities. Questionable trace left apical pneumothorax. Heart and mediastinum: Stable contours. Stable surgical changes. Additional findings: None. IMPRESSION: 1.Questionable trace left apical pneumothorax.2.The intra-aortic balloon pump tip overlies the aortopulmonary window. Signed: Timur Vazquez MDReport Verified Date/Time: 06/20/2022 07:59:02Reading Location: [address] Reading Room BASIC METABOLIC [id number] 05:00:54 Test Item Value Reference Range Interpretation Comments SODIUM (BEAKER) 138 meq/L 136-145 (test code = 381) POTASSIUM 4.0 meq/L 3.5-5.1 Specimen slight ly (BEAKER) (test hemolyzed code = 379) CHLORIDE (BEAKER) 110 meq/L 98-107 H (test code = 382) CO2 (BEAKER) 18 meq/L 22-29 L (test code = 355) BLOOD UREA 11 mg/dL 7-21 NITROGEN (BEAKER) (test code = 354) CREATININE 0.81 mg/dL 0.57-1.25 Specimen slight ly (BEAKER) (test hemolyzed code = 358) GLUCOSE RANDOM 96 mg/dL 70-105 (BEAKER) (test code = 652) CALCIUM (BEAKER) 8.2 mg/dL 8.4-10.2 L (test code = 697) EGFR (BEAKER) 114 Interpretatio n of eGFR (test code = [...] not appl icable for dialysis patien ts Hand Slitter ID - ADMINHEPATIC FUNCTION [id number] 04:59:06 Test Item Value Reference Range Interpretation Comments TOTAL PROTEIN (BEAKER) 6.4 gm/dL 6.0-8.3 Speci men slightly (test code = 770) hemolyzed ALBUMIN (BEAKER) (test 3.0 g/dL 3.5-5.0 L Speci men slightly code = 1145) hemolyzed BILIRUBIN TOTAL 0.2 mg/dL 0.2-1.2 Specimen sli ghtly (BEAKER) (test code = hemoly zed 377) BILIRUBIN DIRECT 0.1 mg/dL 0.1-0.5 Specimen sl ightly (BEAKER) (test code = hemoly zed 706) ALKALINE PHOSPHATASE 52 U/L 40-150 (BEAKER) (test code = 346) AST (SGOT) (BEAKER) 26 U/L 5-34 Specimen slightly (test code = 353) hemolyzed ALT (SGPT) (BEAKER) 27 U/L 6-55 Specimen slightly (test code = 347) hemolyzed Hand Slitter ID - [id number] 04:59:05 Test Item Value Reference Range Interpretation Comments MAGNESIUM (BEAKER) 1.7 mg/dL 1.6-2.6 Specimen slightly (test code = 627) hemolyzed Hand Slitter ID - [id number] 04:59:05 Test Item Value Reference Range Interpretation Comments PHOSPHORUS (BEAKER) 3.7 mg/dL 2.3-4.7 Specimen slightly (test code = 604) hemolyzed Hand Slitter ID - ADMINLACTIC ACID, [id number] 04:53:20 Test Item Value Reference Range Interpretation Comments LACTATE BLOOD 1.9 mmol/L 0.5-2.0 Specimen sligh tly ARTERIAL (2) (BEAKER) hemoly zed (test code = 2874) Hand Slitter ID - ADMINCALCIUM, [id number] 03:59:47 Test Item Value Reference Range Interpretation Comments CALCIUM IONIZED (BEAKER) (test 1.17 mmol/L 1.12-1.27 code = 698) PH, BLOOD (BEAKER) (test code = 7.38 1810) OXYGEN SATURATION, [id number] 03:59:32 Test Item Value Reference Range Interpretation Comments O2 SATURATION (MEASURED) (BEAKER) 74.6 % (test code = 1455) [id number] 03:40:35 Test Item Value Reference Range Interpretation Comments PARTIAL THROMBOPLASTIN TIME 75.4 seconds 22.5-36.0 H (BEAKER) (test code = 760) CBC W/PLT COUNT & AUTO [id number] 03:30:30 Test Item Value Reference Range Interpretation Comments WHITE BLOOD CELL COUNT (BEAKER) 7.9 K/ L 3.5-10.5 (test code = 775) RED BLOOD CELL COUNT (BEAKER) 2.93 M/ L 4.63-6.08 L (test code = 761) HEMOGLOBIN (BEAKER) (test code = 8.2 GM/DL 13.7-17.5 L 410) HEMATOCRIT (BEAKER) (test code = 26.5 % 40.1-51.0 L 411) MEAN CORPUSCULAR VOLUME (BEAKER) 90 fL 79-92 (test code = 753) MEAN CORPUSCULAR HEMOGLOBIN 28.0 pg 25.7-32.2 (BEAKER) (test code = 751) MEAN CORPUSCULAR HEMOGLOBIN CONC 30.9 GM/DL 32.3-36.5 L (BEAKER) (test code = 752) RED CELL DISTRIBUTION WIDTH 16.8 % 11.6-14.4 H (BEAKER) (test code = 412) PLATELET COUNT (BEAKER) (test 315 K/CU MM 150-450 code = 756) MEAN PLATELET VOLUME (BEAKER) 8.5 fL 9.4-12.4 L (test code = 754) NUCLEATED RED BLOOD CELLS 0 /100 WBC 0-0 (BEAKER) (test code = 413) NEUTROPHILS RELATIVE PERCENT 70 % (BEAKER) (test code = 429) LYMPHOCYTES RELATIVE PERCENT 15 % (BEAKER) (test code = 430) MONOCYTES RELATIVE PERCENT 8 % (BEAKER) (test code = 431) EOSINOPHILS RELATIVE PERCENT 5 % (BEAKER) (test code = 432) BASOPHILS RELATIVE PERCENT 1 % (BEAKER) (test code = 437) NEUTROPHILS ABSOLUTE COUNT 5.52 K/ L 1.78-5.38 H (BEAKER) (test code = 670) LYMPHOCYTES ABSOLUTE COUNT 1.21 K/ L 1.32-3.57 L (BEAKER) (test code = 414) MONOCYTES ABSOLUTE COUNT (BEAKER) 0.60 K/ L 0.30-0.82 (test code = 415) EOSINOPHILS ABSOLUTE COUNT 0.36 K/ L 0.04-0.54 (BEAKER) (test code = 416) BASOPHILS ABSOLUTE COUNT (BEAKER) 0.06 K/ L 0.01-0.08 (test code = 417) IMMATURE GRANULOCYTES-RELATIVE 2.40 % 0.00-1.00 H PERCENT (BEAKER) (test code = 2801) BASIC METABOLIC [id number] 15:02:55 Test Item Value Reference Range Interpretation Comments SODIUM (BEAKER) 136 meq/L 136-145 (test code = 381) POTASSIUM 4.7 meq/L 3.5-5.1 Specimen slight ly (BEAKER) (test hemolyzed code = 379) CHLORIDE (BEAKER) 103 meq/L 98-107 (test code = 382) CO2 (BEAKER) 22 meq/L 22-29 (test code = 355) BLOOD UREA 16 mg/dL 7-21 NITROGEN (BEAKER) (test code = 354) CREATININE 1.09 mg/dL 0.57-1.25 Specimen slight ly (BEAKER) (test hemolyzed code = 358) GLUCOSE RANDOM 103 mg/dL 70-105 (BEAKER) (test code = 652) CALCIUM (BEAKER) 10.0 mg/dL 8.4-10.2 (test code = 697) EGFR (BEAKER) 88 Interpretatio n of eGFR (test code = [...] not appl icable for dialysis patien ts Hand Slitter ID - JSRAD, CHEST, 1 VIEW, NON [id number] 07:53:00Reason for exam:- >axillary IABPShould this be performed at the bedside?->Yes [facility] 1980 Sex: MFINAL REPORT RAD, CHEST, 1 VIEW, NON DEPT INDICATION: axillary IABP COMPARISON: Prior day's exam TECHNIQUE: Portable frontal view(s) of the chest. FINDINGS: Support Lines and Devices: Stable. Lungs and pleura: Unchanged airspace and pleural opacities. Trace left apical pneumothorax. Heart and mediastinum: Stable contours. Stable surgical changes. Additional findings: None. IMPRESSION:Trace left apical pneumothorax, less prominent than prior exam. Signed: Timur Vazquez Verified Date/Time: 06/19/2022 07:53:10 Reading Location: [address] Reading Room DIGOXIN [id number] 06:35:38 Test Item Value Reference Range Interpretation Comments DIGOXIN LEVEL (BEAKER) (test code 1.07 ng/mL 0.80-2.00 = 669) Hand Slitter ID - [id number] 05:49:54 Test Item Value Reference Range Interpretation Comments PHOSPHORUS (BEAKER) (test code = 4.1 mg/dL 2.3-4.7 604) Hand Slitter ID - MARCOBASIC METABOLIC [id number] 05:49:53 Test Item Value Reference Range Interpretation Comments SODIUM (BEAKER) 138 meq/L 136-145 (test code = 381) POTASSIUM 4.3 meq/L 3.5-5.1 (BEAKER) (test code = 379) CHLORIDE (BEAKER) 102 meq/L 98-107 (test code = 382) CO2 (BEAKER) 23 meq/L 22-29 (test code = 355) BLOOD UREA 15 mg/dL 7-21 NITROGEN (BEAKER) (test code = 354) CREATININE 1.47 mg/dL 0.57-1.25 H (BEAKER) (test code = 358) GLUCOSE RANDOM 112 mg/dL 70-105 H (BEAKER) (test code = 652) CALCIUM (BEAKER) 9.9 mg/dL 8.4-10.2 (test code = 697) EGFR (BEAKER) 61 [...] not appl icable for dialysis patien ts Hand Slitter ID - [id number] 05:49:53 Test Item Value Reference Range Interpretation Comments MAGNESIUM (BEAKER) (test code = 1.8 mg/dL 1.6-2.6 627) Hand Slitter ID - MARCOCBC W/PLT COUNT & AUTO [id number] 05:40:01 Test Item Value Reference Range Interpretation Comments WHITE BLOOD CELL COUNT (BEAKER) 9.2 K/ L 3.5-10.5 (test code = 775) RED BLOOD CELL COUNT (BEAKER) 3.00 M/ L 4.63-6.08 L (test code = 761) HEMOGLOBIN (BEAKER) (test code = 8.6 GM/DL 13.7-17.5 L 410) HEMATOCRIT (BEAKER) (test code = 26.7 % 40.1-51.0 L 411) MEAN CORPUSCULAR VOLUME (BEAKER) 89 fL 79-92 (test code = 753) MEAN CORPUSCULAR HEMOGLOBIN 28.7 pg 25.7-32.2 (BEAKER) (test code = 751) MEAN CORPUSCULAR HEMOGLOBIN CONC 32.2 GM/DL 32.3-36.5 L (BEAKER) (test code = 752) RED CELL DISTRIBUTION WIDTH 16.8 % 11.6-14.4 H (BEAKER) (test code = 412) PLATELET COUNT (BEAKER) (test 328 K/CU MM 150-450 code = 756) MEAN PLATELET VOLUME (BEAKER) 8.4 fL 9.4-12.4 L (test code = 754) NUCLEATED RED BLOOD CELLS 0 /100 WBC 0-0 (BEAKER) (test code = 413) NEUTROPHILS RELATIVE PERCENT 70 % (BEAKER) (test code = 429) LYMPHOCYTES RELATIVE PERCENT 14 % (BEAKER) (test code = 430) MONOCYTES RELATIVE PERCENT 8 % (BEAKER) (test code = 431) EOSINOPHILS RELATIVE PERCENT 5 % (BEAKER) (test code = 432) BASOPHILS RELATIVE PERCENT 1 % (BEAKER) (test code = 437) NEUTROPHILS ABSOLUTE COUNT 6.48 K/ L 1.78-5.38 H (BEAKER) (test code = 670) LYMPHOCYTES ABSOLUTE COUNT 1.33 K/ L 1.32-3.57 (BEAKER) (test code = 414) MONOCYTES ABSOLUTE COUNT (BEAKER) 0.73 K/ L 0.30-0.82 (test code = 415) EOSINOPHILS ABSOLUTE COUNT 0.42 K/ L 0.04-0.54 (BEAKER) (test code = 416) BASOPHILS ABSOLUTE COUNT (BEAKER) 0.09 K/ L 0.01-0.08 H (test code = 417) IMMATURE GRANULOCYTES-RELATIVE 2.00 % 0.00-1.00 H PERCENT (BEAKER) (test code = 2801) [id number] 05:39:00 Test Item Value Reference Range Interpretation Comments PARTIAL THROMBOPLASTIN TIME 76.7 seconds 22.5-36.0 H (BEAKER) (test code = 760) CALCIUM, [id number] 05:29:53 Test Item Value Reference Range Interpretation Comments CALCIUM IONIZED (BEAKER) (test 1.15 mmol/L 1.12-1.27 code = 698) PH, BLOOD (BEAKER) (test code = 7.42 1810) LACTIC ACID, [id number] 05:28:57 Test Item Value Reference Range Interpretation Comments LACTATE BLOOD ARTERIAL (2) 1.5 mmol/L 0.5-2.0 (BEAKER) (test code = 2874) Hand Slitter ID - ADMINOXYGEN SATURATION, [id number] 05:28:56 Test Item Value Reference Range Interpretation Comments O2 SATURATION (MEASURED) (BEAKER) 67.2 % (test code = 1455) RAD, CHEST, 1 VIEW, NON [id number] 07:37:00Reason for exam:->axillary IABPShould this be performed at the bedside?->Yes [facility] 1980 Sex: MFINAL REPORT RAD, CHEST, 1 VIEW, NON DEPT INDICATION: axillary IABP COMPARISON: Prior day's exam TECHNIQUE: Portable frontal view(s) of the chest. FINDINGS: Support Lines and Devices: The right IJ [place]-Ashli catheter tip overlies the distal right main/proximal lobar pulmonary artery. Otherwise, the life support lines and tubes appear unchanged. The intra-aortic balloon pump tip overlies the aortopulmonary window. Lungs and pleura: Unchanged airspace and pleural opacities. Small left apical pneumothorax. Heart and mediastinum: Stable contours. Stable surgical changes. Additional findings: None. IMPRESSION: 1.Small left apical pneumothorax, similar to prior exam.2.The right IJ [place]-Ashli catheter tip overlies the distal right main/proximal lobar pulmonary artery. Signed: Timur Vazquezconnecticut hospice Verified Date/Time: 06/18/2022 07:37:38 Reading Location: [address] Reading Room LACTIC ACID, [id number] 05:01:59 Test Item Value Reference Range Interpretation Comments LACTATE BLOOD ARTERIAL (2) 1.2 mmol/L 0.5-2.0 (BEAKER) (test code = 2874) Hand Slitter ID - [id number] 05:01:09 Test Item Value Reference Range Interpretation Comments MAGNESIUM (BEAKER) (test code = 2.0 mg/dL 1.6-2.6 627) Hand Slitter ID - [id number] 05:01:09 Test Item Value Reference Range Interpretation Comments PHOSPHORUS (BEAKER) (test code = 4.3 mg/dL 2.3-4.7 604) Hand Slitter ID - BSHEPATIC FUNCTION [id number] 05:01:09 Test Item Value Reference Range Interpretation Comments TOTAL PROTEIN (BEAKER) (test code = 7.4 gm/dL 6.0-8.3 770) ALBUMIN (BEAKER) (test code = 1145) 3.7 g/dL 3.5-5.0 BILIRUBIN TOTAL (BEAKER) (test code 0.2 mg/dL 0.2-1.2 = 377) BILIRUBIN DIRECT (BEAKER) (test 0.1 mg/dL 0.1-0.5 code = 706) ALKALINE PHOSPHATASE (BEAKER) (test 65 U/L 40-150 code = 346) AST (SGOT) (BEAKER) (test code = 18 U/L 5-34 353) ALT (SGPT) (BEAKER) (test code = 34 U/L 6-55 347) Hand Slitter ID - BSBASIC METABOLIC [id number] 05:01:08 Test Item Value Reference Range Interpretation Comments SODIUM (BEAKER) 136 meq/L 136-145 (test code = 381) POTASSIUM 4.2 meq/L 3.5-5.1 (BEAKER) (test code = 379) CHLORIDE (BEAKER) 105 meq/L 98-107 (test code = 382) CO2 (BEAKER) 19 meq/L 22-29 L (test code = 355) BLOOD UREA 10 mg/dL 7-21 NITROGEN (BEAKER) (test code = 354) CREATININE 0.94 mg/dL 0.57-1.25 (BEAKER) (test code = 358) GLUCOSE RANDOM 103 mg/dL 70-105 (BEAKER) (test code = 652) CALCIUM (BEAKER) 9.5 mg/dL 8.4-10.2 (test code = 697) EGFR (BEAKER) 105 Interpretatio n of eGFR (test code = [...] not appl icable for dialysis patien ts Hand Slitter ID - BSB-TYPE NATRIURETIC FACTOR ([id number] 04:52:31 Test Item Value Reference Range Interpretation Comments B-TYPE NATRIURETIC PEPTIDE (BEAKER) 535 pg/mL 0-100 H (test code = 700) Hand Slitter ID - MMCALCIUM, [id number] 04:43:48 Test Item Value Reference Range Interpretation Comments CALCIUM IONIZED (BEAKER) (test 1.17 mmol/L 1.12-1.27 code = 698) PH, BLOOD (BEAKER) (test code = 7.38 1810) OXYGEN SATURATION, [id number] 04:43:24 Test Item Value Reference Range Interpretation Comments O2 SATURATION (MEASURED) (BEAKER) 68.3 % (test code = 1455) [id number] 03:56:06 Test Item Value Reference Range Interpretation Comments PARTIAL THROMBOPLASTIN TIME 70.9 seconds 22.5-36.0 H (BEAKER) (test code = 760) CBC W/PLT COUNT & AUTO [id number] 03:46:59 Test Item Value Reference Range Interpretation Comments WHITE BLOOD CELL COUNT (BEAKER) 8.5 K/ L 3.5-10.5 (test code = 775) RED BLOOD CELL COUNT (BEAKER) 3.05 M/ L 4.63-6.08 L (test code = 761) HEMOGLOBIN (BEAKER) (test code = 8.6 GM/DL 13.7-17.5 L 410) HEMATOCRIT (BEAKER) (test code = 27.7 % 40.1-51.0 L 411) MEAN CORPUSCULAR VOLUME (BEAKER) 91 fL 79-92 (test code = 753) MEAN CORPUSCULAR HEMOGLOBIN 28.2 pg 25.7-32.2 (BEAKER) (test code = 751) MEAN CORPUSCULAR HEMOGLOBIN CONC 31.0 GM/DL 32.3-36.5 L (BEAKER) (test code = 752) RED CELL DISTRIBUTION WIDTH 17.0 % 11.6-14.4 H (BEAKER) (test code = 412) PLATELET COUNT (BEAKER) (test 301 K/CU MM 150-450 code = 756) MEAN PLATELET VOLUME (BEAKER) 8.1 fL 9.4-12.4 L (test code = 754) NUCLEATED RED BLOOD CELLS 0 /100 WBC 0-0 (BEAKER) (test code = 413) NEUTROPHILS RELATIVE PERCENT 66 % (BEAKER) (test code = 429) LYMPHOCYTES RELATIVE PERCENT 16 % (BEAKER) (test code = 430) MONOCYTES RELATIVE PERCENT 9 % (BEAKER) (test code = 431) EOSINOPHILS RELATIVE PERCENT 6 % (BEAKER) (test code = 432) BASOPHILS RELATIVE PERCENT 1 % (BEAKER) (test code = 437) NEUTROPHILS ABSOLUTE COUNT 5.64 K/ L 1.78-5.38 H (BEAKER) (test code = 670) LYMPHOCYTES ABSOLUTE COUNT 1.35 K/ L 1.32-3.57 (BEAKER) (test code = 414) MONOCYTES ABSOLUTE COUNT (BEAKER) 0.77 K/ L 0.30-0.82 (test code = 415) EOSINOPHILS ABSOLUTE COUNT 0.54 K/ L 0.04-0.54 (BEAKER) (test code = 416) BASOPHILS ABSOLUTE COUNT (BEAKER) 0.09 K/ L 0.01-0.08 H (test code = 417) IMMATURE GRANULOCYTES-RELATIVE 1.60 % 0.00-1.00 H PERCENT (BEAKER) (test code = 2801) HEPATIC FUNCTION [id number] 16:06:22 Test Item Value Reference Range Interpretation Comments TOTAL PROTEIN (BEAKER) (test code = 7.4 gm/dL 6.0-8.3 770) ALBUMIN (BEAKER) (test code = 1145) 3.6 g/dL 3.5-5.0 BILIRUBIN TOTAL (BEAKER) (test code 0.3 mg/dL 0.2-1.2 = 377) BILIRUBIN DIRECT (BEAKER) (test 0.1 mg/dL 0.1-0.5 code = 706) ALKALINE PHOSPHATASE (BEAKER) (test 66 U/L 40-150 code = 346) AST (SGOT) (BEAKER) (test code = 19 U/L 5-34 353) ALT (SGPT) (BEAKER) (test code = 37 U/L 6-55 347) Hand Slitter ID - BSRAD, CHEST, 1 VIEW, NON [id number] 08:00:00Reason for exam:- >axillary IABPShould this be performed at the bedside?->Yes [facility] 1980 Sex: MFINAL REPORT RAD, CHEST, 1 VIEW, NON DEPT INDICATION: axillary IABP COMPARISON: Prior day's exam TECHNIQUE: Portable frontal view(s) of the chest. FINDINGS: Support Lines and Devices: The right IJ [place]-Ashli catheter tip overlies the distal right main pulmonary artery. The intra-aortic balloon pump tip overlies the aortopulmonary window. Lungs and pleura: Nodular opacity in the right upper lobe. Suggestion of trace left apical pneumothorax. Heart and mediastinum: Stable contours. Stable surgical changes. Additional findings: None. IMPRESSION: 1.Suggestion of trace left apical pneumothorax.2.The right IJ [place]-Ashli catheter tip now overlies the distal right main pulmonary artery. 3.The intra-aortic balloon pump tip overlies the aortopulmonary window.4.Nonspecific nodular opacity seenin the right upper lobe, which may be external to the patient. Signed: Timur Vazquezeport Verified Date/Time: 06/17/2022 08:00:02 Reading Location: [address] Reading Room [id number] 05:00:55 Test Item Value Reference Range Interpretation Comments PHOSPHORUS (BEAKER) (test code = 4.2 mg/dL 2.3-4.7 604) Hand Slitter ID - ADMINBASIC METABOLIC [id number] 05:00:54 Test Item Value Reference Range Interpretation Comments SODIUM (BEAKER) 136 meq/L 136-145 (test code = 381) POTASSIUM 4.2 meq/L 3.5-5.1 (BEAKER) (test code = 379) CHLORIDE (BEAKER) 102 meq/L 98-107 (test code = 382) CO2 (BEAKER) 22 meq/L 22-29 (test code = 355) BLOOD UREA 14 mg/dL 7-21 NITROGEN (BEAKER) (test code = 354) CREATININE 1.16 mg/dL 0.57-1.25 (BEAKER) (test code = 358) GLUCOSE RANDOM 102 mg/dL 70-105 (BEAKER) (test code = 652) CALCIUM (BEAKER) 9.5 mg/dL 8.4-10.2 (test code = 697) EGFR (BEAKER) 82 Interpretatio n of eGFR (test code = [...] not appl icable for dialysis patien ts Hand Slitter ID - [id number] 05:00:54 Test Item Value Reference Range Interpretation Comments MAGNESIUM (BEAKER) (test code = 1.9 mg/dL 1.6-2.6 627) Hand Slitter ID - ADMINCALCIUM, [id number] 04:43:58 Test Item Value Reference Range Interpretation Comments CALCIUM IONIZED (BEAKER) (test 1.17 mmol/L 1.12-1.27 code = 698) PH, BLOOD (BEAKER) (test code = 7.41 1810) OXYGEN SATURATION, [id number] 04:42:28 Test Item Value Reference Range Interpretation Comments O2 SATURATION (MEASURED) (BEAKER) 76.6 % (test code = 1455) LACTIC ACID, [id number] 04:24:30 Test Item Value Reference Range Interpretation Comments LACTATE BLOOD ARTERIAL (2) 1.3 mmol/L 0.5-2.0 (BEAKER) (test code = 2874) Hand Slitter ID - [id number] 04:10:10 Test Item Value Reference Range Interpretation Comments PARTIAL THROMBOPLASTIN TIME 72.3 seconds 22.5-36.0 H (BEAKER) (test code = 760) CBC W/PLT COUNT & AUTO [id number] 03:55:23 Test Item Value Reference Range Interpretation Comments WHITE BLOOD CELL COUNT (BEAKER) 8.1 K/ L 3.5-10.5 (test code = 775) RED BLOOD CELL COUNT (BEAKER) 2.86 M/ L 4.63-6.08 L (test code = 761) HEMOGLOBIN (BEAKER) (test code = 8.0 GM/DL 13.7-17.5 L 410) HEMATOCRIT (BEAKER) (test code = 25.3 % 40.1-51.0 L 411) MEAN CORPUSCULAR VOLUME (BEAKER) 89 fL 79-92 (test code = 753) MEAN CORPUSCULAR HEMOGLOBIN 28.0 pg 25.7-32.2 (BEAKER) (test code = 751) MEAN CORPUSCULAR HEMOGLOBIN CONC 31.6 GM/DL 32.3-36.5 L (BEAKER) (test code = 752) RED CELL DISTRIBUTION WIDTH 16.8 % 11.6-14.4 H (BEAKER) (test code = 412) PLATELET COUNT (BEAKER) (test 290 K/CU MM 150-450 code = 756) MEAN PLATELET VOLUME (BEAKER) 8.2 fL 9.4-12.4 L (test code = 754) NUCLEATED RED BLOOD CELLS 0 /100 WBC 0-0 (BEAKER) (test code = 413) NEUTROPHILS RELATIVE PERCENT 67 % (BEAKER) (test code = 429) LYMPHOCYTES RELATIVE PERCENT 16 % (BEAKER) (test code = 430) MONOCYTES RELATIVE PERCENT 8 % (BEAKER) (test code = 431) EOSINOPHILS RELATIVE PERCENT 7 % (BEAKER) (test code = 432) BASOPHILS RELATIVE PERCENT 1 % (BEAKER) (test code = 437) NEUTROPHILS ABSOLUTE COUNT 5.38 K/ L 1.78-5.38 (BEAKER) (test code = 670) LYMPHOCYTES ABSOLUTE COUNT 1.31 K/ L 1.32-3.57 L (BEAKER) (test code = 414) MONOCYTES ABSOLUTE COUNT (BEAKER) 0.65 K/ L 0.30-0.82 (test code = 415) EOSINOPHILS ABSOLUTE COUNT 0.57 K/ L 0.04-0.54 H (BEAKER) (test code = 416) BASOPHILS ABSOLUTE COUNT (BEAKER) 0.06 K/ L 0.01-0.08 (test code = 417) IMMATURE GRANULOCYTES-RELATIVE 1.20 % 0.00-1.00 H PERCENT (BEAKER) (test code = 2801) LACTIC ACID, [id number] 18:02:55 Test Item Value Reference Range Interpretation Comments LACTATE BLOOD VENOUS (2) (BEAKER) 1.20 mmol/L 0.50-2.00 (test code = 2872) Hand Slitter ID - MARCOOXYGEN SATURATION, [id number] 17:43:25 Test Item Value Reference Range Interpretation Comments O2 SATURATION (MEASURED) (BEAKER) 83.0 % (test code = 1455) LACTIC ACID, [id number] 13:00:52 Test Item Value Reference Range Interpretation Comments LACTATE BLOOD VENOUS (2) (BEAKER) 3.01 mmol/L 0.50-2.00 H (test code = 2872) Hand Slitter ID - MARCOOXYGEN SATURATION, [id number] 12:37:39 Test Item Value Reference Range Interpretation Comments O2 SATURATION (MEASURED) (BEAKER) 90.2 % (test code = 1455) RAD, CHEST, 1 VIEW, NON [id number] 08:14:00Reason for exam:->axillary IABPShould this be performed at the bedside?->Yes [facility] 1980 Sex: MFINAL REPORT RAD, CHEST, 1 VIEW, NON DEPT INDICATION: axillary IABP COMPARISON: Prior day's exam FINDINGS: Portable frontal view of the chest. IMPRESSION: Support Lines: PICC tip overlies the atriocaval junction. [place]-Ashli catheter has been advanced with tip posterior basal segmental pulmonary artery. Correlation with desired placement is suggested. IABP marker is 3.7 cm below the topof the aortic arch. Lungs and pleura: Lungs are clear No significant pneumothorax. Heart and mediastinum: Stable contours. Stable surgical changes. Additional findings: None. Signed: Natalee Orta Verified Date/Time: 06/16/2022 08:14:02 Electronically signed by: Tru CONRAD 06/16/2022 08:14 AMPOCT-GLUCOSE [id number] 07:47:56 Test Item Value Reference Range Interpretation Comments POC-GLUCOSE METER 101 mg/dL 70-110 : TESTED A T [facility] 6720 (MIA) (test code = [place], 1538) [address]: Hand Slitter/Techni macrina ID = [id number] for FLORENTINO ALEISHAAnne JINNY DIGOXIN [id number] 06:26:06 Test Item Value Reference Range Interpretation Comments DIGOXIN LEVEL (MIA) (test code 0.80 ng/mL 0.80-2.00 = 669) Hand Slitter ID - SAMANTHA FUNCTION [id number] 05:12:36 Test Item Value Reference Range Interpretation Comments TOTAL PROTEIN (BEAKER) (test code = 6.9 gm/dL 6.0-8.3 770) ALBUMIN (BEAKER) (test code = 1145) 3.3 g/dL 3.5-5.0 L BILIRUBIN TOTAL (BEAKER) (test code 0.2 mg/dL 0.2-1.2 = 377) BILIRUBIN DIRECT (BEAKER) (test 0.1 mg/dL 0.1-0.5 code = 706) ALKALINE PHOSPHATASE (BEAKER) (test 61 U/L 40-150 code = 346) AST (SGOT) (BEAKER) (test code = 25 U/L 5-34 353) ALT (SGPT) (BEAKER) (test code = 44 U/L 6-55 347) Hand Slitter ID - BSBASIC METABOLIC [id number] 05:12:35 Test Item Value Reference Range Interpretation Comments SODIUM (BEAKER) 136 meq/L 136-145 (test code = 381) POTASSIUM 4.2 meq/L 3.5-5.1 (BEAKER) (test code = 379) CHLORIDE (BEAKER) 103 meq/L 98-107 (test code = 382) CO2 (BEAKER) 23 meq/L 22-29 (test code = 355) BLOOD UREA 8 mg/dL 7-21 NITROGEN (BEAKER) (test code = 354) CREATININE 0.88 mg/dL 0.57-1.25 (BEAKER) (test code = 358) GLUCOSE RANDOM 108 mg/dL 70-105 H (BEAKER) (test code = 652) CALCIUM (BEAKER) 9.1 mg/dL 8.4-10.2 (test code = 697) EGFR (BEAKER) 111 Interpretatio n of eGFR (test code = [...] not appl icable for dialysis patien ts Hand Slitter ID - [id number] 05:12:35 Test Item Value Reference Range Interpretation Comments MAGNESIUM (BEAKER) (test code = 2.4 mg/dL 1.6-2.6 627) Hand Slitter ID - [id number] 05:12:35 Test Item Value Reference Range Interpretation Comments PHOSPHORUS (BEAKER) (test code = 3.6 mg/dL 2.3-4.7 604) Hand Slitter ID - BSCBC W/PLT COUNT & AUTO [id number] 04:41:54 Test Item Value Reference Range Interpretation Comments WHITE BLOOD CELL COUNT (BEAKER) 8.4 K/ L 3.5-10.5 (test code = 775) RED BLOOD CELL COUNT (BEAKER) 2.77 M/ L 4.63-6.08 L (test code = 761) HEMOGLOBIN (BEAKER) (test code = 7.8 GM/DL 13.7-17.5 L 410) HEMATOCRIT (BEAKER) (test code = 25.2 % 40.1-51.0 L 411) MEAN CORPUSCULAR VOLUME (BEAKER) 91 fL 79-92 (test code = 753) MEAN CORPUSCULAR HEMOGLOBIN 28.2 pg 25.7-32.2 (BEAKER) (test code = 751) MEAN CORPUSCULAR HEMOGLOBIN CONC 31.0 GM/DL 32.3-36.5 L (BEAKER) (test code = 752) RED CELL DISTRIBUTION WIDTH 16.5 % 11.6-14.4 H (BEAKER) (test code = 412) PLATELET COUNT (BEAKER) (test 314 K/CU MM 150-450 code = 756) MEAN PLATELET VOLUME (BEAKER) 8.4 fL 9.4-12.4 L (test code = 754) NUCLEATED RED BLOOD CELLS 0 /100 WBC 0-0 (BEAKER) (test code = 413) NEUTROPHILS RELATIVE PERCENT 66 % (BEAKER) (test code = 429) LYMPHOCYTES RELATIVE PERCENT 15 % (BEAKER) (test code = 430) MONOCYTES RELATIVE PERCENT 9 % (BEAKER) (test code = 431) EOSINOPHILS RELATIVE PERCENT 8 % (BEAKER) (test code = 432) BASOPHILS RELATIVE PERCENT 1 % (BEAKER) (test code = 437) NEUTROPHILS ABSOLUTE COUNT 5.52 K/ L 1.78-5.38 H (BEAKER) (test code = 670) LYMPHOCYTES ABSOLUTE COUNT 1.26 K/ L 1.32-3.57 L (BEAKER) (test code = 414) MONOCYTES ABSOLUTE COUNT (BEAKER) 0.75 K/ L 0.30-0.82 (test code = 415) EOSINOPHILS ABSOLUTE COUNT 0.67 K/ L 0.04-0.54 H (BEAKER) (test code = 416) BASOPHILS ABSOLUTE COUNT (BEAKER) 0.06 K/ L 0.01-0.08 (test code = 417) IMMATURE GRANULOCYTES-RELATIVE 1.30 % 0.00-1.00 H PERCENT (BEAKER) (test code = 2801) [id number] 04:40:50 Test Item Value Reference Range Interpretation Comments PARTIAL THROMBOPLASTIN TIME 79.4 seconds 22.5-36.0 H (BEAKER) (test code = 760) LACTIC ACID, [id number] 04:17:58 Test Item Value Reference Range Interpretation Comments LACTATE BLOOD ARTERIAL (2) 1.2 mmol/L 0.5-2.0 (BEAKER) (test code = 2874) Hand Slitter ID - MARCOCALCIUM, [id number] 04:15:18 Test Item Value Reference Range Interpretation Comments CALCIUM IONIZED (BEAKER) (test 1.19 mmol/L 1.12-1.27 code = 698) PH, BLOOD (BEAKER) (test code = 7.41 1810) OXYGEN SATURATION, [id number] 04:14:13 Test Item Value Reference Range Interpretation Comments O2 SATURATION (MEASURED) (BEAKER) 66.1 % (test code = 1455) [id number] 21:07:00 Test Item Value Reference Range Interpretation Comments POTASSIUM (BEAKER) (test code = 4.7 meq/L 3.5-5.1 379) Hand Slitter ID - [id number] 21:06:59 Test Item Value Reference Range Interpretation Comments MAGNESIUM (BEAKER) (test code = 2.1 mg/dL 1.6-2.6 627) Hand Slitter ID - [id number] 20:52:54 Test Item Value Reference Range Interpretation Comments PARTIAL THROMBOPLASTIN TIME 69.3 seconds 22.5-36.0 H (BEAKER) (test code = 760) CALCIUM, [id number] 20:45:10 Test Item Value Reference Range Interpretation Comments CALCIUM IONIZED (BEAKER) (test 1.15 mmol/L 1.12-1.27 code = 698) PH, BLOOD (BEAKER) (test code = 7.49 1810) HEMOGLOBIN AND [id number] 15:02:01 Test Item Value Reference Range Interpretation Comments HEMOGLOBIN (BEAKER) (test code = 8.3 GM/DL 13.7-17.5 L 410) HEMATOCRIT (BEAKER) (test code = 26.1 % 40.1-51.0 L 411) Hand Slitter ID - [id number] 14:59:18 Test Item Value Reference Range Interpretation Comments PARTIAL THROMBOPLASTIN TIME 74.6 seconds 22.5-36.0 H (BEAKER) (test code = 760) RAD, CHEST, 1 VIEW, NON [id number] 07:58:00Reason for exam:->axillary IABPShould this be performed at the bedside?->Yes [facility] 1980 Sex: MFINAL REPORT RAD, CHEST, 1 VIEW, NON DEPT INDICATION: axillary IABP COMPARISON: Prior day's exam FINDINGS: Portable frontal view of the chest. IMPRESSION: Support Lines: New [place] catheter has been advanced with tip posterior basal segmental pulmonary artery. Correlation with desired placement is suggested. IABP marker is 5.1 cm below the top of the aortic arch. Lungs and pleura: Lungs are clear No significant pneumothorax. Heart and mediastinum: Stable contours. Stable surgical changes. Additional findings: None. Signed: Natalee Ortaeport Verified Date/Time: 06/15/2022 07:58:11 [id number] 07:38:49 Test Item Value Reference Range Interpretation Comments PARTIAL THROMBOPLASTIN TIME 91.5 seconds 22.5-36.0 H (BEAKER) (test code = 760) [id number] 04:24:08 Test Item Value Reference Range Interpretation Comments PHOSPHORUS (BEAKER) (test code = 2.7 mg/dL 2.3-4.7 604) Hand Slitter ID - BSBASIC METABOLIC [id number] 04:24:07 Test Item Value Reference Range Interpretation Comments SODIUM (BEAKER) 135 meq/L 136-145 L (test code = 381) POTASSIUM 3.7 meq/L 3.5-5.1 (BEAKER) (test code = 379) CHLORIDE (BEAKER) 101 meq/L 98-107 (test code = 382) CO2 (BEAKER) 26 meq/L 22-29 (test code = 355) BLOOD UREA 7 mg/dL 7-21 NITROGEN (BEAKER) (test code = 354) CREATININE 0.92 mg/dL 0.57-1.25 (BEAKER) (test code = 358) GLUCOSE RANDOM 148 mg/dL 70-105 H (BEAKER) (test code = 652) CALCIUM (BEAKER) 8.9 mg/dL 8.4-10.2 (test code = 697) EGFR (BEAKER) 108 Interpretatio n of eGFR (test code = [...] not appl icable for dialysis patien ts Hand Slitter ID - [id number] 04:24:07 Test Item Value Reference Range Interpretation Comments MAGNESIUM (BEAKER) (test code = 1.8 mg/dL 1.6-2.6 627) Hand Slitter ID - BSLACTIC ACID, [id number] 03:53:12 Test Item Value Reference Range Interpretation Comments LACTATE BLOOD ARTERIAL (2) 1.8 mmol/L 0.5-2.0 (BEAKER) (test code = 2874) Hand Slitter ID - BSCALCIUM, [id number] 03:38:52 Test Item Value Reference Range Interpretation Comments CALCIUM IONIZED (BEAKER) (test 1.10 mmol/L 1.12-1.27 L code = 698) PH, BLOOD (BEAKER) (test code = 7.43 1810) CBC W/PLT COUNT & AUTO [id number] 03:37:40 Test Item Value Reference Range Interpretation Comments WHITE BLOOD CELL COUNT (BEAKER) 8.9 K/ L 3.5-10.5 (test code = 775) RED BLOOD CELL COUNT (BEAKER) 2.72 M/ L 4.63-6.08 L (test code = 761) HEMOGLOBIN (BEAKER) (test code = 7.7 GM/DL 13.7-17.5 L 410) HEMATOCRIT (BEAKER) (test code = 23.8 % 40.1-51.0 L 411) MEAN CORPUSCULAR VOLUME (BEAKER) 88 fL 79-92 (test code = 753) MEAN CORPUSCULAR HEMOGLOBIN 28.3 pg 25.7-32.2 (BEAKER) (test code = 751) MEAN CORPUSCULAR HEMOGLOBIN CONC 32.4 GM/DL 32.3-36.5 (BEAKER) (test code = 752) RED CELL DISTRIBUTION WIDTH 16.6 % 11.6-14.4 H (BEAKER) (test code = 412) PLATELET COUNT (BEAKER) (test 241 K/CU MM 150-450 code = 756) MEAN PLATELET VOLUME (BEAKER) 8.8 fL 9.4-12.4 L (test code = 754) NUCLEATED RED BLOOD CELLS 0 /100 WBC 0-0 (BEAKER) (test code = 413) NEUTROPHILS RELATIVE PERCENT 73 % (BEAKER) (test code = 429) LYMPHOCYTES RELATIVE PERCENT 13 % (BEAKER) (test code = 430) MONOCYTES RELATIVE PERCENT 7 % (BEAKER) (test code = 431) EOSINOPHILS RELATIVE PERCENT 6 % (BEAKER) (test code = 432) BASOPHILS RELATIVE PERCENT 1 % (BEAKER) (test code = 437) NEUTROPHILS ABSOLUTE COUNT 6.50 K/ L 1.78-5.38 H (BEAKER) (test code = 670) LYMPHOCYTES ABSOLUTE COUNT 1.17 K/ L 1.32-3.57 L (BEAKER) (test code = 414) MONOCYTES ABSOLUTE COUNT (BEAKER) 0.58 K/ L 0.30-0.82 (test code = 415) EOSINOPHILS ABSOLUTE COUNT 0.49 K/ L 0.04-0.54 (BEAKER) (test code = 416) BASOPHILS ABSOLUTE COUNT (BEAKER) 0.05 K/ L 0.01-0.08 (test code = 417) IMMATURE GRANULOCYTES-RELATIVE 0.90 % 0.00-1.00 PERCENT (BEAKER) (test code = 2801) OXYGEN SATURATION, [id number] 03:34:55 Test Item Value Reference Range Interpretation Comments O2 SATURATION (MEASURED) (BEAKER) 83.4 % (test code = 1455) OXYGEN SATURATION, [id number] 22:47:25 Test Item Value Reference Range Interpretation Comments O2 SATURATION (MEASURED) (BEAKER) 59.1 % (test code = 1455) LACTIC ACID, [id number] 21:29:35 Test Item Value Reference Range Interpretation Comments LACTATE BLOOD 2.7 mmol/L 0.5-2.0 H Specimen sligh tly ARTERIAL (2) (BEAKER) hemoly zed (test code = 2874) Hand Slitter ID - [id number] 21:26:13 Test Item Value Reference Range Interpretation Comments PARTIAL THROMBOPLASTIN TIME 61.0 seconds 22.5-36.0 H (BEAKER) (test code = 760) OXYGEN SATURATION, [id number] 21:18:47 Test Item Value Reference Range Interpretation Comments O2 SATURATION (MEASURED) (BEAKER) 98.7 % (test code = 1455) IRON, TIBC, % SAT. (WITHOUT FERRITIN)2022-06-14 17:19:37 Test Item Value Reference Range Interpretation Comments IRON (BEAKER) (test code = 547) 46.0 ug/dL 40.0-160.0 TOTAL IRON BINDING CAPACITY 201 ug/dL 250-450 L (BEAKER) (test code = 769) IRON % SATURATION (2) (BEAKER) 23 % 20-55 (test code = 2590) Hand Slitter ID - BSOperator ID - [id number] 16:55:35 Test Item Value Reference Range Interpretation Comments FERRITIN (BEAKER) (test code = 928.63 ng/mL 5.00-275.00 H 361) Hand Slitter ID - [id number] 15:14:41 Test Item Value Reference Range Interpretation Comments PARTIAL THROMBOPLASTIN TIME 57.2 seconds 22.5-36.0 H (BEAKER) (test code = 760) COMPREHENSIVE METABOLIC [id number] 14:35:56 Test Item Value Reference Range Interpretation Comments TOTAL PROTEIN 7.5 gm/dL 6.0-8.3 (BEAKER) (test code = 770) ALBUMIN (BEAKER) 3.5 g/dL 3.5-5.0 (test code = 1145) ALKALINE 68 U/L 40-150 PHOSPHATASE (BEAKER) (test code = 346) BILIRUBIN TOTAL 0.2 mg/dL 0.2-1.2 (BEAKER) (test code = 377) SODIUM (BEAKER) 135 meq/L 136-145 L (test code = 381) POTASSIUM (BEAKER) 4.4 meq/L 3.5-5.1 (test code = 379) CHLORIDE (BEAKER) 101 meq/L 98-107 (test code = 382) CO2 (BEAKER) (test 25 meq/L 22-29 code = 355) BLOOD UREA 9 mg/dL 7-21 NITROGEN (BEAKER) (test code = 354) CREATININE 0.98 mg/dL 0.57-1.25 (BEAKER) (test code = 358) GLUCOSE RANDOM 126 mg/dL 70-105 H (BEAKER) (test code = 652) CALCIUM (BEAKER) 9.0 mg/dL 8.4-10.2 (test code = 697) AST (SGOT) 34 U/L 5-34 (BEAKER) (test code = 353) ALT (SGPT) 41 U/L 6-55 (BEAKER) (test code = 347) EGFR (BEAKER) 100 Interpretatio n of eGFR (test code = [...] not appl icable for dialysis patien ts Hand Slitter ID - GLORIA BLACTIC ACID, [id number] 14:09:28 Test Item Value Reference Range Interpretation Comments LACTATE BLOOD ARTERIAL (2) 1.3 mmol/L 0.5-2.0 (BEAKER) (test code = 2874) Hand Slitter ID - AAHAMIDHEMOGLOBIN AND [id number] 13:59:40 Test Item Value Reference Range Interpretation Comments HEMOGLOBIN (BEAKER) (test code = 8.3 GM/DL 13.7-17.5 L 410) HEMATOCRIT (BEAKER) (test code = 25.6 % 40.1-51.0 L 411) Hand Slitter ID - 6000OXYGEN SATURATION, [id number] 13:59:03 Test Item Value Reference Range Interpretation Comments O2 SATURATION (MEASURED) (BEAKER) 72.4 % (test code = 1455) LACTIC ACID, [id number] 07:47:00 Test Item Value Reference Range Interpretation Comments LACTATE BLOOD ARTERIAL (2) 1.5 mmol/L 0.5-2.0 (BEAKER) (test code = 2874) Hand Slitter ID - MMDIGOXIN [id number] 07:45:35 Test Item Value Reference Range Interpretation Comments DIGOXIN LEVEL (BEAKER) (test code 0.53 ng/mL 0.80-2.00 L = 669) Hand Slitter ID - MMRAD, CHEST, 1 VIEW, NON [id number] 07:05:00Reason for exam:- >axillary IABPShould this be performed at the bedside?->Yes [facility] 1980 Sex: MFINAL REPORT RAD, CHEST, 1 VIEW, NON DEPT INDICATION: axillary IABP COMPARISON: Prior day's exam FINDINGS: Portable frontal view of the chest. IMPRESSION: Support Lines: [place]-Ashli catheter has been advanced with tip posterior basal segmental pulmonary artery. Correlation with desired placement is suggested. IABP marker is 3.5 cm below the top of the aortic arch. Lungs and pleura: Lungs are clear No significant pneumothorax. Heart and mediastinum: Stable contours. Stable surgical changes. Additional findings: None. Signed: Natalee Orta MDReport Verified Date/Time: 06/14/2022 07:05:11 PHOSPHORUS 2022-06-14 06:46:58 Test Item Value Reference Range Interpretation Comments PHOSPHORUS (BEAKER) (test code = 2.8 mg/dL 2.3-4.7 604) Hand Slitter ID - MMHEPATIC FUNCTION [id number] 06:46:58 Test Item Value Reference Range Interpretation Comments TOTAL PROTEIN (BEAKER) (test code = 6.6 gm/dL 6.0-8.3 770) ALBUMIN (BEAKER) (test code = 1145) 3.2 g/dL 3.5-5.0 L BILIRUBIN TOTAL (BEAKER) (test code 0.3 mg/dL 0.2-1.2 = 377) BILIRUBIN DIRECT (BEAKER) (test 0.1 mg/dL 0.1-0.5 code = 706) ALKALINE PHOSPHATASE (BEAKER) (test 55 U/L 40-150 code = 346) AST (SGOT) (BEAKER) (test code = 30 U/L 5-34 353) ALT (SGPT) (BEAKER) (test code = 34 U/L 6-55 347) Hand Slitter ID - MMBASIC METABOLIC [id number] 06:46:57 Test Item Value Reference Range Interpretation Comments SODIUM (BEAKER) 134 meq/L 136-145 L (test code = 381) POTASSIUM 3.9 meq/L 3.5-5.1 (BEAKER) (test code = 379) CHLORIDE (BEAKER) 102 meq/L 98-107 (test code = 382) CO2 (BEAKER) 21 meq/L 22-29 L (test code = 355) BLOOD UREA 8 mg/dL 7-21 NITROGEN (BEAKER) (test code = 354) CREATININE 0.94 mg/dL 0.57-1.25 (BEAKER) (test code = 358) GLUCOSE RANDOM 112 mg/dL 70-105 H (BEAKER) (test code = 652) CALCIUM (BEAKER) 9.1 mg/dL 8.4-10.2 (test code = 697) EGFR (BEAKER) 105 Interpretatio n of eGFR (test code = [...] not appl icable for dialysis patien ts Hand Slitter ID - [id number] 06:46:57 Test Item Value Reference Range Interpretation Comments MAGNESIUM (BEAKER) (test code = 2.1 mg/dL 1.6-2.6 627) Hand Slitter ID - [id number] 06:32:55 Test Item Value Reference Range Interpretation Comments PARTIAL THROMBOPLASTIN TIME 100.1 seconds 22.5-36.0 H (BEAKER) (test code = 760) OXYGEN SATURATION, [id number] 06:31:05 Test Item Value Reference Range Interpretation Comments O2 SATURATION (MEASURED) (BEAKER) 80.9 % (test code = 1455) CBC W/PLT COUNT & AUTO [id number] 06:14:44 Test Item Value Reference Range Interpretation Comments WHITE BLOOD CELL COUNT (BEAKER) 9.5 K/ L 3.5-10.5 (test code = 775) RED BLOOD CELL COUNT (BEAKER) 2.80 M/ L 4.63-6.08 L (test code = 761) HEMOGLOBIN (BEAKER) (test code = 8.0 GM/DL 13.7-17.5 L 410) HEMATOCRIT (BEAKER) (test code = 23.9 % 40.1-51.0 L 411) MEAN CORPUSCULAR VOLUME (BEAKER) 85 fL 79-92 (test code = 753) MEAN CORPUSCULAR HEMOGLOBIN 28.6 pg 25.7-32.2 (BEAKER) (test code = 751) MEAN CORPUSCULAR HEMOGLOBIN CONC 33.5 GM/DL 32.3-36.5 (BEAKER) (test code = 752) RED CELL DISTRIBUTION WIDTH 16.5 % 11.6-14.4 H (BEAKER) (test code = 412) PLATELET COUNT (BEAKER) (test 207 K/CU MM 150-450 code = 756) MEAN PLATELET VOLUME (BEAKER) 8.8 fL 9.4-12.4 L (test code = 754) NUCLEATED RED BLOOD CELLS 0 /100 WBC 0-0 (BEAKER) (test code = 413) NEUTROPHILS RELATIVE PERCENT 74 % (BEAKER) (test code = 429) LYMPHOCYTES RELATIVE PERCENT 11 % (BEAKER) (test code = 430) MONOCYTES RELATIVE PERCENT 8 % (BEAKER) (test code = 431) EOSINOPHILS RELATIVE PERCENT 5 % (BEAKER) (test code = 432) BASOPHILS RELATIVE PERCENT 1 % (BEAKER) (test code = 437) NEUTROPHILS ABSOLUTE COUNT 7.00 K/ L 1.78-5.38 H (BEAKER) (test code = 670) LYMPHOCYTES ABSOLUTE COUNT 1.08 K/ L 1.32-3.57 L (BEAKER) (test code = 414) MONOCYTES ABSOLUTE COUNT (BEAKER) 0.77 K/ L 0.30-0.82 (test code = 415) EOSINOPHILS ABSOLUTE COUNT 0.48 K/ L 0.04-0.54 (BEAKER) (test code = 416) BASOPHILS ABSOLUTE COUNT (BEAKER) 0.05 K/ L 0.01-0.08 (test code = 417) IMMATURE GRANULOCYTES-RELATIVE 1.00 % 0.00-1.00 PERCENT (BEAKER) (test code = 2801) [id number] 01:39:24 Test Item Value Reference Range Interpretation Comments PARTIAL THROMBOPLASTIN TIME 75.4 seconds 22.5-36.0 H (BEAKER) (test code = 760) CBC (HEMOGRAM ONLY)2022-06-13 17:50:04 Test Item Value Reference Range Interpretation Comments WHITE BLOOD CELL COUNT (BEAKER) 11.0 K/ L 3.5-10.5 H (test code = 775) RED BLOOD CELL COUNT (BEAKER) 3.16 M/ L 4.63-6.08 L (test code = 761) HEMOGLOBIN (BEAKER) (test code = 9.0 GM/DL 13.7-17.5 L 410) HEMATOCRIT (BEAKER) (test code = 26.9 % 40.1-51.0 L 411) MEAN CORPUSCULAR VOLUME (BEAKER) 85 fL 79-92 (test code = 753) MEAN CORPUSCULAR HEMOGLOBIN 28.5 pg 25.7-32.2 (BEAKER) (test code = 751) MEAN CORPUSCULAR HEMOGLOBIN CONC 33.5 GM/DL 32.3-36.5 (BEAKER) (test code = 752) RED CELL DISTRIBUTION WIDTH 16.5 % 11.6-14.4 H (BEAKER) (test code = 412) PLATELET COUNT (BEAKER) (test 222 K/CU MM 150-450 code = 756) MEAN PLATELET VOLUME (BEAKER) 9.9 fL 9.4-12.4 (test code = 754) NUCLEATED RED BLOOD CELLS 0 /100 WBC 0-0 (BEAKER) (test code = 413) OXYGEN SATURATION, [id number] 17:42:18 Test Item Value Reference Range Interpretation Comments O2 SATURATION (MEASURED) (BEAKER) 91.0 % (test code = 1455) CT, CHEST, WITHOUT [id number] 17:21:00Unlisted Reason for Exam - Click Yes and Enter Reason Below->YesUnlisted Reason for Exam->c/f chest wall [facility]oma[facility] : 1980 Sex: MFINAL REPORT CT Chest without contrast History: Chest wall hematoma Comparison: 05/22/2022 Technique: serial axial imaging was performed without intravenous contrast as per departmental protocol. Multiplanar images are reconstructed and reviewed when indicated. This CT examination is performed using one or more of the following dose reduction techniques: Automated exposure control, adjustment of the mA and /or kV according to patient size, and/or use of iterative reconstruction technique. Findings:No mediastinal lymphadenopathy. No definite hilar enlargement. A left PICC line terminates within the superior vena cava. A [place]-Ashli catheter terminates within the right pulmonary artery. Intra-aortic balloon pump. Mild cardiomegaly. No significant pericardial effusion. No thoracic aortic aneurysm. Normal caliber of main pulmonary trunk. Patent central airways. Trace left pleural effusion. No pneumothorax is apparent. Previous area consolidation within the right lower lobe has decreased in size. Mild left lower lobe subsegmental atelectasis. The lungs are otherwise clear. There is soft tissue swelling within the left chest wall with foci of subcutaneous emphysema and surgical clips within the left axilla. No sizable hematoma or fluid collection is visualized. Overlying skin staplesare noted. No significant findings in the partially imaged abdomen. No aggressive osseous lesion. Impression: 1. Soft tissue swelling within the left chest wall and additional post procedural changes within the left axilla. No sizable hematoma or fluid collection is visualized.2. Previous right lower lobe consolidation has decreased in size, suggestive of improving pneumonia.3. Trace left pleural effu vivienne.4. Mild cardiomegaly. Signed: Bjorn Warner Verified Date/Time: 06/13/2022 17:21:48 LACTIC ACID, [id number] 17:18:37 Test Item Value Reference Range Interpretation Comments LACTATE BLOOD 1.3 mmol/L 0.5-2.0 Specimen sligh tly ARTERIAL (2) (BEAKER) hemoly zed (test code = 2874) Hand Slitter ID - [id number] 17:07:30 Test Item Value Reference Range Interpretation Comments PHOSPHORUS (BEAKER) (test code = 3.1 mg/dL 2.3-4.7 604) Hand Slitter ID - ADMINBASIC METABOLIC [id number] 17:07:29 Test Item Value Reference Range Interpretation Comments SODIUM (BEAKER) 131 meq/L 136-145 L (test code = 381) POTASSIUM 4.5 meq/L 3.5-5.1 (BEAKER) (test code = 379) CHLORIDE (BEAKER) 98 meq/L 98-107 (test code = 382) CO2 (BEAKER) 24 meq/L 22-29 (test code = 355) BLOOD UREA 11 mg/dL 7-21 NITROGEN (BEAKER) (test code = 354) CREATININE 1.03 mg/dL 0.57-1.25 (BEAKER) (test code = 358) GLUCOSE RANDOM 123 mg/dL 70-105 H (BEAKER) (test code = 652) CALCIUM (BEAKER) 9.2 mg/dL 8.4-10.2 (test code = 697) EGFR (BEAKER) 94 Interpretatio n of eGFR (test code = [...] not appl icable for dialysis patien ts Hand Slitter ID - [id number] 17:07:29 Test Item Value Reference Range Interpretation Comments MAGNESIUM (BEAKER) (test code = 2.6 mg/dL 1.6-2.6 627) Hand Slitter ID - [id number] 17:00:02 Test Item Value Reference Range Interpretation Comments PARTIAL THROMBOPLASTIN TIME 62.0 seconds 22.5-36.0 H (BEAKER) (test code = 760) POCT-GLUCOSE [id number] 16:42:07 Test Item Value Reference Range Interpretation Comments POC-GLUCOSE METER 73 mg/dL 70-110 : TESTED A T [facility] 6720 (BEAKER) (test code = [place], 1538) [address]: Hand Slitter/Techni macrina ID = [id number] for Monica Floyd OXYGEN SATURATION, [id number] 16:38:41 Test Item Value Reference Range Interpretation Comments O2 SATURATION (MEASURED) (BEAKER) 99.0 % (test code = 1455) NV, ANGIOGRAM, [id number] 16:27:00Reason for exam:->stroke [facility] 1980 Sex: MFINAL REPORT DATE: 06/08/2022 SURGEON: Zahra Ponce MD [employer] REPRESENTATIVE: Verenice Miller MD PREOPERATIVE DIAGNOSIS: Basilar tip occlusion POST OPERATIVE DIAGNOSIS: Basilar tip occlusion s/psuccessful recanalization PROCEDURE: Diagnostic cerebral angiogram and mechanical thrombectomy ANESTHESIA: General anesthesia ESTIMATED BLOOD LOSS: < 20 cc COMPLICATIONS: None Devices Employed: Cerebase guide catheterVert diagnostic catheterZoom 71 aspiration catheterAristotle 18 microwireVelocity microcatheter INDICATIONS: The patient is a 41-year-old man with history of nonischemic cardiomyopathy, left ventricular systolic thrombus, and seizures, who was admitted to the intensive care unit withdecompensated heart failure and waiting heart transplant. Earlier today his axillary balloon pump was replaced with a femoral balloon pump. Immediately after the procedure he was noted to have a changein mental status and word- finding difficulty. A stroke code was activated. CTA showed of basilar tip occlusion prompting emergent thrombectomy. PROCEDURE: Due to the emergent nature and no immediate available family or surrogate decision maker, thrombectomy was performed under emergency consent. A time-out was performed. Pre-existing left femoral sheath (11 Fr, inserted by interventional cardiology) was accessed using the Cerebase guide catheter and Vert diagnostic catheter. This was advanced into the descending aorta, back-bled, and flushed in the usual fashion. Using coaxial technique, the guide catheter was advanced into the left subclavian artery. An angiogram was performed to visualize the ostium of the left VA as well as the distal subclavian and axillary artery. Using roadmap guidance, theleft VA was subsequently catheterized. Thrombectomy was performed with primary aspiration via a Zoom71 catheter. Following mechanical thrombectomy, the left common and internal carotid artery were catheterized. Upon each successive selective catheterization, digital subtraction angiography using the appropriate rate and volume of contrast in multiple projections was performed. ENDOVASCULAR INTERVENTION:Once the Cerebase guide catheter was successfully navigated into the V3 segment of the left vertebral artery, the diagnostic catheter was removed and replaced with the Zoom 71 aspiration catheter. Using an Mitch 18 microwire and Velocity microcatheter, the triaxial system was advanced and appropriately engaged with the proximal end of the basilar thrombus. Aspiration was performed. Following aspiration, angiography showed complete recanalization of the basilar artery and its distal branches. The catheters were subsequently removed. The pre-existing left femoral sheath remained in place. FINDINGS: LEFT VERTEBRAL ARTERY (DSA - AP, LATERAL - HEAD) Under fluoroscopic guidance, the catheter was advanced into the left vertebral artery. PA and lateral projections of the cranium demonstrate antegrade flow into the left vertebral artery and proximal basilar artery. However, marvin occlusion of the distal basilar artery along the origin of the superior cerebellar arteries was observed. Following end ovascular intervention, described below, reperfusion was achieved with normal filling of bilateral superior cerebellar arteries and posterior cerebral arteries. The remainder of the posterior circulation, including the anterior inferior cerebellar and posterior inferior cerebellar arteries are normal in course and caliber. There is contrast reflux into the right vertebral artery with opacification ofthe right posterior inferior cerebellar artery. There is also contrast filling of the left posteriorcommunicating artery and middle cerebral artery. No aneurysm, vascular malformation, or arteriovenous shunt is noted. No stenosis or vasospasm is observed. No significant abnormalities are seen in the capillary and venous phases. The venous phase demonstrates patent transverse and sigmoid sinuses. LEFT COMMON CAROTID ARTERY (DSA - AP, LATERAL - HEAD) Under fluoroscopic guidance, a catheter was advanced into the left common carotid artery. PA and lateral projections demonstrate antegrade flow into the intracranial segments of the internal carotid artery, middle and anterior cerebral artery. No aneurysms, arteriovenous shunting, dissection, occlusion is appreciated. Venous phase images are balanced over the convexity. PA and lateral projections demonstrate antegrade flow into the external carotid segments of the carotid artery. The visualized portions of the left external carotid artery and its branches are normal in course and caliber. There is no evidence of arteriovenous shunting. The venous phase is normal. LEFT INTERNAL CAROTID ARTERY (DSA - AP, LATERAL - HEAD) Under fluoroscopic guidance, a catheter was advanced into the left internal carotid artery. PA and lateral projections demonstrate antegrade flow into the intracranial segments of the internal carotid artery, middle and anterior cerebral artery. Flash filling of the basilar tip. The left posterior communicating artery is seen. No aneurysms, arteriovenous shunting, dissection, occlusion is appreciated. Venous phase images are balanced over the convexity. IMPRESSION:1. Angiographic study demonstrates complete occlusion of the basilar tip proximal to the SCA branches.2. Successful recanalization using primary aspiration. TICI score 3. Dr. Ponce was present for the entire procedure and performed the critical portions of the case.No immediate technical or clinical complications noted. Signed: Zahra Ponce MDReport Verified Date/ Time: 06/13/2022 16:27:53 Reading Location: [facility] Y018 Neuro Angio Reading Room [id number] 11:44:58 Test Item Value Reference Range Interpretation Comments PARTIAL THROMBOPLASTIN TIME 69.7 seconds 22.5-36.0 H (BEAKER) (test code = 760) POCT-GLUCOSE [id number] 11:20:55 Test Item Value Reference Range Interpretation Comments POC-GLUCOSE METER 157 mg/dL 70-110 H : TESTED A T [facility] 6720 (MIA) (test code = [place], 1538) [address]: Hand Slitter/Techni macrina ID = [id number] for BE LL, BEAULA CT, BRAIN, WITHOUT [id number] 10:36:00 [facility] 1980 Sex: MFINAL REPORT CT Head without contrast CLINICAL HISTORY: Stroke, follow up TECHNIQUE:Contiguous axial CT images through the head without contrast. This exam was performed according to the departmental dose optimization program which includes automated exposure control, adjustment of the mA and/or kV according to the patient size, and/or use of an iterative reconstruction technique. [facility] PARISON: 06/09/2022 FINDINGS: There are small recent appearing bilateral cerebellar infarcts. There is no hemorrhage. There is mild generalized parenchymal volume loss without hydrocephalus, midline shift, or apparent mass effect. There are no extra-axial fluid collections. The skull is intact. The visualized paranasal sinuses are well-aerated. IMPRESSION: Small recent appearing bilateral cerebellar infarcts without hemorrhage. Signed: Raheel Tyson MDReport Verified Date/Time: 06/13/2022 10:36:34 RAD, CHEST, 1 VIEW, NON DEPT 2022-06-13 07:10:00Reason for exam:->axillary IABPShould this be performed at the bedside?->Yes [facility] : 1980 Sex: MFINAL REPORT RAD, CHEST, 1 VIEW, NON DEPT INDICATION: axillary IABP COMPARISON: Prior day's exam FINDINGS: Portable frontal view of the chest. IMPRESSION: Support Lines: New [place]-Ashli catheter is been advanced with tip posterior basal segmental pulmonary artery. Correlation with desired placement is suggested. IABP marker is 3.5 cm below the top of the aortic arch. Lungs and pleura: Lungs are clear No significant pneumothorax. Heart and mediastinum: Stable contours. Additional findings:None. Signed: Natalee Orta MDReport Verified Date/Time: 06/13/2022 07:10:27 Electronically signedby: NATALEE ORTA MD on 06/13/2022 07:10 AMHEPATIC FUNCTION [id number] 06:34:40 Test Item Value Reference Range Interpretation Comments TOTAL PROTEIN (BEAKER) (test code = 6.9 gm/dL 6.0-8.3 770) ALBUMIN (BEAKER) (test code = 1145) 3.4 g/dL 3.5-5.0 L BILIRUBIN TOTAL (BEAKER) (test code 0.4 mg/dL 0.2-1.2 = 377) BILIRUBIN DIRECT (BEAKER) (test 0.2 mg/dL 0.1-0.5 code = 706) ALKALINE PHOSPHATASE (BEAKER) (test 58 U/L 40-150 code = 346) AST (SGOT) (BEAKER) (test code = 16 U/L 5-34 353) ALT (SGPT) (BEAKER) (test code = 19 U/L 6-55 347) Hand Slitter ID - MMCREATINE KINASE (CK)2022-06-13 06:34:40 Test Item Value Reference Range Interpretation Comments CREATINE KINASE TOTAL (BEAKER) (test 181 U/L 29-200 code = 380) Hand Slitter ID - [id number] 06:34:39 Test Item Value Reference Range Interpretation Comments MAGNESIUM (BEAKER) (test code = 1.8 mg/dL 1.6-2.6 627) Hand Slitter ID - [id number] 06:34:39 Test Item Value Reference Range Interpretation Comments PHOSPHORUS (BEAKER) (test code = 4.0 mg/dL 2.3-4.7 604) Hand Slitter ID - MMBASIC METABOLIC [id number] 06:34:38 Test Item Value Reference Range Interpretation Comments SODIUM (BEAKER) 131 meq/L 136-145 L (test code = 381) POTASSIUM 4.1 meq/L 3.5-5.1 (BEAKER) (test code = 379) CHLORIDE (BEAKER) 96 meq/L 98-107 L (test code = 382) CO2 (BEAKER) 23 meq/L 22-29 (test code = 355) BLOOD UREA 12 mg/dL 7-21 NITROGEN (BEAKER) (test code = 354) CREATININE 1.09 mg/dL 0.57-1.25 (BEAKER) (test code = 358) GLUCOSE RANDOM 122 mg/dL 70-105 H (BEAKER) (test code = 652) CALCIUM (BEAKER) 9.5 mg/dL 8.4-10.2 (test code = 697) EGFR (BEAKER) 88 Interpretatio n of eGFR (test code = mL/min/1.73 values Stage De scription 1092) sq m Result G1 Ana l or high >=90 G2 Mildly decreased 60-89 G3a Mildl y to moderately 45-5 9 G3b Moderately to s everely 30-44 G4 Severl y decreased 15-29 G5 Kidney failure <15Reported eGF R is based on the CKD-EPI 1 equation that d oes not use a race coefficientEsti mated GFR is not as accur ate as Creatinine Cathy melodie in predicting glom erular filtration rate . Estimated GFR is not appl icable for dialysis patien ts Hand Slitter ID - [id number] 04:54:15 Test Item Value Reference Range Interpretation Comments PARTIAL THROMBOPLASTIN TIME 92.3 seconds 22.5-36.0 H (BEAKER) (test code = 760) LACTIC ACID, [id number] 04:47:30 Test Item Value Reference Range Interpretation Comments LACTATE BLOOD ARTERIAL (2) 0.7 mmol/L 0.5-2.0 (BEAKER) (test code = 2874) Hand Slitter ID - MMCBC W/PLT COUNT & AUTO [id number] 04:38:54 Test Item Value Reference Range Interpretation Comments WHITE BLOOD CELL COUNT 10.4 K/ L 3.5-10.5 (BEAKER) (test code = 775) RED BLOOD CELL COUNT 2.49 M/ L 4.63-6.08 L (BEAKER) (test code = 761) HEMOGLOBIN (BEAKER) 7.0 GM/DL 13.7-17.5 L (test code = 410) HEMATOCRIT (BEAKER) 21.7 % 40.1-51.0 L (test code = 411) MEAN CORPUSCULAR 87 fL 79-92 Discordant result VOLUME (BEAKER) (test compar ed to previous code = 753) result. Clinica l correlation req uired MEAN CORPUSCULAR 28.1 pg 25.7-32.2 HEMOGLOBIN (BEAKER) (test code = 751) MEAN CORPUSCULAR 32.3 GM/DL 32.3-36.5 HEMOGLOBIN CONC (BEAKER) (test code = 752) RED CELL DISTRIBUTION 16.9 % 11.6-14.4 H WIDTH (BEAKER) (test code = 412) PLATELET COUNT 176 K/CU MM 150-450 (BEAKER) (test code = 756) MEAN PLATELET VOLUME 8.7 fL 9.4-12.4 L (BEAKER) (test code = 754) NUCLEATED RED BLOOD 0 /100 WBC 0-0 CELLS (BEAKER) (test code = 413) NEUTROPHILS RELATIVE 74 % PERCENT (BEAKER) (test code = 429) LYMPHOCYTES RELATIVE 11 % PERCENT (BEAKER) (test code = 430) MONOCYTES RELATIVE 9 % PERCENT (BEAKER) (test code = 431) EOSINOPHILS RELATIVE 5 % PERCENT (BEAKER) (test code = 432) BASOPHILS RELATIVE 0 % PERCENT (BEAKER) (test code = 437) NEUTROPHILS ABSOLUTE 7.67 K/ L 1.78-5.38 H COUNT (BEAKER) (test code = 670) LYMPHOCYTES ABSOLUTE 1.10 K/ L 1.32-3.57 L COUNT (BEAKER) (test code = 414) MONOCYTES ABSOLUTE 0.97 K/ L 0.30-0.82 H COUNT (BEAKER) (test code = 415) EOSINOPHILS ABSOLUTE 0.47 K/ L 0.04-0.54 COUNT (BEAKER) (test code = 416) BASOPHILS ABSOLUTE 0.03 K/ L 0.01-0.08 COUNT (BEAKER) (test code = 417) IMMATURE 1.30 % 0.00-1.00 H GRANULOCYTES-RELATIVE PERCENT (BEAKER) (test code = 2801) OXYGEN SATURATION, [id number] 04:36:16 Test Item Value Reference Range Interpretation Comments O2 SATURATION (MEASURED) (BEAKER) 75.4 % (test code = 1455) [id number] 00:55:15 Test Item Value Reference Range Interpretation Comments PARTIAL THROMBOPLASTIN TIME 78.6 seconds 22.5-36.0 H (BEAKER) (test code = 760) POCT-GLUCOSE [id number] 22:05:01 Test Item Value Reference Range Interpretation Comments POC-GLUCOSE METER 134 mg/dL 70-110 H : TESTED A T [facility] 6720 (BEAKER) (test code = [place], 1538) [address]: Hand Slitter/Techni macrina ID = [id number] for Tr Lucila hickman LACTIC ACID, [id number] 20:09:37 Test Item Value Reference Range Interpretation Comments LACTATE BLOOD VENOUS (2) (BEAKER) 2.00 mmol/L 0.50-2.00 (test code = 2872) Hand Slitter ID - ADMINHEMOGLOBIN AND [id number] 20:06:53 Test Item Value Reference Range Interpretation Comments HEMOGLOBIN (BEAKER) (test code = 7.7 GM/DL 13.7-17.5 L 410) HEMATOCRIT (BEAKER) (test code = 24.0 % 40.1-51.0 L 411) Hand Slitter ID - 6000OXYGEN SATURATION, [id number] 19:57:06 Test Item Value Reference Range Interpretation Comments O2 SATURATION (MEASURED) (BEAKER) 67.1 % (test code = 1455) COMPREHENSIVE METABOLIC [id number] 15:43:19 Test Item Value Reference Range Interpretation Comments TOTAL PROTEIN 7.2 gm/dL 6.0-8.3 (BEAKER) (test code = 770) ALBUMIN (BEAKER) 3.5 g/dL 3.5-5.0 (test code = 1145) ALKALINE 63 U/L 40-150 PHOSPHATASE (BEAKER) (test code = 346) BILIRUBIN TOTAL 0.4 mg/dL 0.2-1.2 (BEAKER) (test code = 377) SODIUM (BEAKER) 132 meq/L 136-145 L (test code = 381) POTASSIUM (BEAKER) 4.4 meq/L 3.5-5.1 (test code = 379) CHLORIDE (BEAKER) 97 meq/L 98-107 L (test code = 382) CO2 (BEAKER) (test 25 meq/L 22-29 code = 355) BLOOD UREA 12 mg/dL 7-21 NITROGEN (BEAKER) (test code = 354) CREATININE 1.11 mg/dL 0.57-1.25 (BEAKER) (test code = 358) GLUCOSE RANDOM 145 mg/dL 70-105 H (BEAKER) (test code = 652) CALCIUM (BEAKER) 9.4 mg/dL 8.4-10.2 (test code = 697) AST (SGOT) 16 U/L 5-34 (BEAKER) (test code = 353) ALT (SGPT) 20 U/L 6-55 (BEAKER) (test code = 347) EGFR (BEAKER) 86 Interpretatio n of eGFR (test code = [...] not appl icable for dialysis patien ts Hand Slitter ID - [id number] 15:38:37 Test Item Value Reference Range Interpretation Comments PARTIAL THROMBOPLASTIN TIME 60.3 seconds 22.5-36.0 H (BEAKER) (test code = 760) OXYGEN SATURATION, [id number] 15:26:43 Test Item Value Reference Range Interpretation Comments O2 SATURATION (MEASURED) (BEAKER) 60.7 % (test code = 1455) LACTIC ACID, [id number] 13:00:55 Test Item Value Reference Range Interpretation Comments LACTATE BLOOD VENOUS (2) (BEAKER) 0.68 mmol/L 0.50-2.00 (test code = 2872) Hand Slitter ID - ADMINOXYGEN SATURATION, [id number] 12:17:06 Test Item Value Reference Range Interpretation Comments O2 SATURATION (MEASURED) (BEAKER) 72.9 % (test code = 1455) HEMOGLOBIN AND [id number] 12:16:28 Test Item Value Reference Range Interpretation Comments HEMOGLOBIN (BEAKER) (test code = 7.6 GM/DL 13.7-17.5 L 410) HEMATOCRIT (BEAKER) (test code = 24.1 % 40.1-51.0 L 411) Hand Slitter ID - 6000POCT-GLUCOSE [id number] 07:25:20 Test Item Value Reference Range Interpretation Comments POC-GLUCOSE METER 120 mg/dL 70-110 H : TESTED A T [facility] 6720 (BEAKER) (test code = [place], 1538) [address]: Hand Slitter/Techni macrina ID = [id number] for AG UILAR, GILBERTO RAD, CHEST, 1 VIEW, NON [id number] 06:54:00Reason for exam:->femoral IABPShould this be performed at the bedside?->Yes [facility] 1980 Sex: MFINAL REPORT RAD, CHEST, 1 VIEW, NON DEPT INDICATION: femoral IABP COMPARISON: Priorday's exam FINDINGS: Portable frontal view of the chest. IMPRESSION: Support Lines: [place]-Ashli tip overlies the pulmonary outflow tract. PICC tip overlies the atriocaval junction. IABP marker is 3.9 cm below the top of the aortic arch. Lungs and pleura: Lungs are clear No significant pneumothorax. Heart and mediastinum: Stable contours. Stable surgical changes. Additional findings: None. Signed: Natalee Ortaeport Verified Date/Time: 06/12/2022 06:54:56 [id number] 05:51:04 Test Item Value Reference Range Interpretation Comments PHOSPHORUS (BEAKER) (test code = 5.7 mg/dL 2.3-4.7 H 604) Hand Slitter ID - ADMINHEPATIC FUNCTION [id number] 05:51:04 Test Item Value Reference Range Interpretation Comments TOTAL PROTEIN (BEAKER) (test code = 7.3 gm/dL 6.0-8.3 770) ALBUMIN (BEAKER) (test code = 1145) 3.6 g/dL 3.5-5.0 BILIRUBIN TOTAL (BEAKER) (test code 0.4 mg/dL 0.2-1.2 = 377) BILIRUBIN DIRECT (BEAKER) (test 0.2 mg/dL 0.1-0.5 code = 706) ALKALINE PHOSPHATASE (BEAKER) (test 68 U/L 40-150 code = 346) AST (SGOT) (BEAKER) (test code = 15 U/L 5-34 353) ALT (SGPT) (BEAKER) (test code = 20 U/L 6-55 347) Hand Slitter ID - ADMINBASIC METABOLIC [id number] 05:51:03 Test Item Value Reference Range Interpretation Comments SODIUM (BEAKER) 131 meq/L 136-145 L (test code = 381) POTASSIUM 5.0 meq/L 3.5-5.1 (BEAKER) (test code = 379) CHLORIDE (BEAKER) 97 meq/L 98-107 L (test code = 382) CO2 (BEAKER) 25 meq/L 22-29 (test code = 355) BLOOD UREA 11 mg/dL 7-21 NITROGEN (BEAKER) (test code = 354) CREATININE 1.08 mg/dL 0.57-1.25 (BEAKER) (test code = 358) GLUCOSE RANDOM 127 mg/dL 70-105 H (BEAKER) (test code = 652) CALCIUM (BEAKER) 9.5 mg/dL 8.4-10.2 (test code = 697) EGFR (BEAKER) 89 Interpretatio n of eGFR (test code = [...] not appl icable for dialysis patien ts Hand Slitter ID - [id number] 05:51:03 Test Item Value Reference Range Interpretation Comments MAGNESIUM (BEAKER) (test code = 2.2 mg/dL 1.6-2.6 627) Hand Slitter ID - [id number] 05:11:06 Test Item Value Reference Range Interpretation Comments PARTIAL THROMBOPLASTIN TIME 30.2 seconds 22.5-36.0 (BEAKER) (test code = 760) CBC W/PLT COUNT & AUTO [id number] 05:05:37 Test Item Value Reference Range Interpretation Comments WHITE BLOOD CELL COUNT (BEAKER) 10.7 K/ L 3.5-10.5 H (test code = 775) RED BLOOD CELL COUNT (BEAKER) 2.75 M/ L 4.63-6.08 L (test code = 761) HEMOGLOBIN (BEAKER) (test code = 7.9 GM/DL 13.7-17.5 L 410) HEMATOCRIT (BEAKER) (test code = 25.1 % 40.1-51.0 L 411) MEAN CORPUSCULAR VOLUME (BEAKER) 91 fL 79-92 (test code = 753) MEAN CORPUSCULAR HEMOGLOBIN 28.7 pg 25.7-32.2 (BEAKER) (test code = 751) MEAN CORPUSCULAR HEMOGLOBIN CONC 31.5 GM/DL 32.3-36.5 L (BEAKER) (test code = 752) RED CELL DISTRIBUTION WIDTH 17.2 % 11.6-14.4 H (BEAKER) (test code = 412) PLATELET COUNT (BEAKER) (test 155 K/CU MM 150-450 code = 756) MEAN PLATELET VOLUME (BEAKER) 9.2 fL 9.4-12.4 L (test code = 754) NUCLEATED RED BLOOD CELLS 0 /100 WBC 0-0 (BEAKER) (test code = 413) NEUTROPHILS RELATIVE PERCENT 80 % (BEAKER) (test code = 429) LYMPHOCYTES RELATIVE PERCENT 7 % (BEAKER) (test code = 430) MONOCYTES RELATIVE PERCENT 8 % (BEAKER) (test code = 431) EOSINOPHILS RELATIVE PERCENT 3 % (BEAKER) (test code = 432) BASOPHILS RELATIVE PERCENT 0 % (BEAKER) (test code = 437) NEUTROPHILS ABSOLUTE COUNT 8.55 K/ L 1.78-5.38 H (BEAKER) (test code = 670) LYMPHOCYTES ABSOLUTE COUNT 0.79 K/ L 1.32-3.57 L (BEAKER) (test code = 414) MONOCYTES ABSOLUTE COUNT (BEAKER) 0.90 K/ L 0.30-0.82 H (test code = 415) EOSINOPHILS ABSOLUTE COUNT 0.33 K/ L 0.04-0.54 (BEAKER) (test code = 416) BASOPHILS ABSOLUTE COUNT (BEAKER) 0.04 K/ L 0.01-0.08 (test code = 417) IMMATURE GRANULOCYTES-RELATIVE 0.70 % 0.00-1.00 PERCENT (BEAKER) (test code = 2801) OXYGEN SATURATION, [id number] 04:58:57 Test Item Value Reference Range Interpretation Comments O2 SATURATION (MEASURED) (BEAKER) 78.0 % (test code = 1455) POCT-GLUCOSE [id number] 23:06:09 Test Item Value Reference Range Interpretation Comments POC-GLUCOSE METER 142 mg/dL 70-110 H : Notified RN/MD: (MIA) (test code = TESTED AT [facility] 8948 1349) [facility], [address]: Hand Slitter/Techni macrina ID = [id number] for Tr Lucila hickman BASIC METABOLIC [id number] 22:47:59 Test Item Value Reference Range Interpretation Comments SODIUM (BEAKER) 134 meq/L 136-145 L (test code = 381) POTASSIUM 4.8 meq/L 3.5-5.1 (BEAKER) (test code = 379) CHLORIDE (BEAKER) 101 meq/L 98-107 (test code = 382) CO2 (BEAKER) 25 meq/L 22-29 (test code = 355) BLOOD UREA 8 mg/dL 7-21 NITROGEN (BEAKER) (test code = 354) CREATININE 0.97 mg/dL 0.57-1.25 (BEAKER) (test code = 358) GLUCOSE RANDOM 134 mg/dL 70-105 H (BEAKER) (test code = 652) CALCIUM (BEAKER) 10.7 mg/dL 8.4-10.2 H (test code = 697) EGFR (BEAKER) 101 Interpretatio n of eGFR (test code = [...] not appl icable for dialysis patien ts Hand Slitter ID - BSOperator ID - [id number] 22:44:36 Test Item Value Reference Range Interpretation Comments MAGNESIUM (BEAKER) (test code = 2.0 mg/dL 1.6-2.6 627) Hand Slitter ID - [id number] 22:44:36 Test Item Value Reference Range Interpretation Comments PHOSPHORUS (BEAKER) (test code = 5.8 mg/dL 2.3-4.7 H 604) Hand Slitter ID - BSPOCT-GLUCOSE [id number] 22:35:45 Test Item Value Reference Range Interpretation Comments POC-GLUCOSE METER 125 mg/dL 70-110 H : TESTED A T [facility] 6720 (BEAKER) (test code = [place], 1538) [address]: Hand Slitter/Techni macrina ID = [id number] for JINNY ALMANZA CBC W/PLT COUNT & AUTO [id number] 17:36:33 Test Item Value Reference Range Interpretation Comments WHITE BLOOD CELL COUNT (BEAKER) 13.4 K/ L 3.5-10.5 H (test code = 775) RED BLOOD CELL COUNT (BEAKER) 2.90 M/ L 4.63-6.08 L (test code = 761) HEMOGLOBIN (BEAKER) (test code = 8.1 GM/DL 13.7-17.5 L 410) HEMATOCRIT (BEAKER) (test code = 25.6 % 40.1-51.0 L 411) MEAN CORPUSCULAR VOLUME (BEAKER) 88 fL 79-92 (test code = 753) MEAN CORPUSCULAR HEMOGLOBIN 27.9 pg 25.7-32.2 (BEAKER) (test code = 751) MEAN CORPUSCULAR HEMOGLOBIN CONC 31.6 GM/DL 32.3-36.5 L (BEAKER) (test code = 752) RED CELL DISTRIBUTION WIDTH 16.7 % 11.6-14.4 H (BEAKER) (test code = 412) PLATELET COUNT (BEAKER) (test 171 K/CU MM 150-450 code = 756) MEAN PLATELET VOLUME (BEAKER) 8.6 fL 9.4-12.4 L (test code = 754) NEUTROPHILS RELATIVE PERCENT 78 % (BEAKER) (test code = 429) LYMPHOCYTES RELATIVE PERCENT 9 % (BEAKER) (test code = 430) MONOCYTES RELATIVE PERCENT 8 % (BEAKER) (test code = 431) EOSINOPHILS RELATIVE PERCENT 3 % (BEAKER) (test code = 432) BASOPHILS RELATIVE PERCENT 0 % (BEAKER) (test code = 437) NEUTROPHILS ABSOLUTE COUNT 10.39 K/ L 1.78-5.38 H (BEAKER) (test code = 670) LYMPHOCYTES ABSOLUTE COUNT 1.20 K/ L 1.32-3.57 L (BEAKER) (test code = 414) MONOCYTES ABSOLUTE COUNT (BEAKER) 1.07 K/ L 0.30-0.82 H (test code = 415) EOSINOPHILS ABSOLUTE COUNT 0.46 K/ L 0.04-0.54 (BEAKER) (test code = 416) BASOPHILS ABSOLUTE COUNT (BEAKER) 0.06 K/ L 0.01-0.08 (test code = 417) RAD, CHEST, 1 VIEW, NON [id number] 17:36:00Reason for exam:->IABP positionShould this be performed at the bedside?->Yes [facility] : 1980 Sex: MFINAL REPORT CHEST ONE VIEW HISTORY: IABP COMPARISON: 06/11/2022 at 0111 hours FINDINGS: Single portable AP examination of the chest was performed. Intra-aortic balloon pump marker is 3.2cm caudal to the apex of the aortic arch. Right jugular pulmonary arterial catheter tip is in the right pulmonary artery region Left PICC line tip is in the SVC region. Surgical clips and surgical sandrita are present in the left axillary region. Lungs clear. Cardiac shadow mildly enlarged. No pleural effusions or pneumothorax. Signed: Sera Lopezeport Verified Date/Time: 06/11/2022 17:36:39 [id number] 16:47:45 Test Item Value Reference Range Interpretation Comments PARTIAL THROMBOPLASTIN TIME 31.0 seconds 22.5-36.0 (BEAKER) (test code = 760) PROTHROMBIN [id number] 16:47:34 Test Item Value Reference Range Interpretation Comments PROTIME (BEAKER) (test code = 15.4 seconds 11.9-14.2 H 759) INR (BEAKER) (test code = 370) 1.24 <=5.90 RECOMMENDED COUMADIN/WARFARIN INR THERAPY RANGESSTANDARD DOSE: 2.0 - 3.0 Includes: PROPHYLAXIS for venous thrombosis, systemic embolization; TREATMENT for venous thrombosis and/or pulmonary embolus.HIGH RISK: Target INR is 2.5-3.5 for patients with mechanical heart valves.DIGOXIN [id number] 15:56:59 Test Item Value Reference Range Interpretation Comments DIGOXIN LEVEL (BEAKER) (test code 0.79 ng/mL 0.80-2.00 L = 669) CALCIUM, [id number] 13:11:21 Test Item Value Reference Range Interpretation Comments CALCIUM IONIZED (BEAKER) (test 1.08 mmol/L 1.12-1.27 L code = 698) PH, BLOOD (BEAKER) (test code = 7.51 1810) SODIUM NA-STAT [id number] 13:10:54 Test Item Value Reference Range Interpretation Comments SODIUM (BEAKER) (test code = 381) 132 meq/L 136-145 L HGB/HCT (H&H) - STAT [id number] 13:10:54 Test Item Value Reference Range Interpretation Comments HEMOGLOBIN (BEAKER) (test code = 8.9 GM/DL 13.0-16.8 L 410) HEMATOCRIT (BEAKER) (test code = 26.0 % 40.0-50.0 L 411) BLOOD GAS, [id number] 13:10:53 Test Item Value Reference Range Interpretation Comments PH ARTERIAL (BEAKER) (test code = 7.53 7.35-7.45 H 383) PCO2 ARTERIAL (BEAKER) (test code 29 mm Hg 35-45 L = 384) PO2 ARTERIAL (BEAKER) (test code = 205 mm Hg 80-90 H 385) O2 SATURATION ARTERIAL (BEAKER) 99.5 % 96.0-97.0 H (test code = 386) HCO3 ARTERIAL (BEAKER) (test code 24 mmol/L 21-29 = 388) BASE EXCESS ARTERIAL (BEAKER) 0.9 mmol/L -2.0-3.0 (test code = 387) PATIENT TEMPERATURE (BEAKER) (test 36.0 code = 1818) FIO2 (BEAKER) (test code = 1819) 100.0 GLUCOSE-STAT [id number] 13:07:18 Test Item Value Reference Range Interpretation Comments GLUCOSE RANDOM (BEAKER) (test code 153 mg/dL 70-110 H = 652) POTASSIUM-STAT [id number] 13:07:18 Test Item Value Reference Range Interpretation Comments POTASSIUM (BEAKER) (test code = 4.5 meq/L 3.6-5.5 379) RAD, CHEST, 1 VIEW, NON [id number] 10:39:00Reason for exam:->femoral IABPShould this be performed at the bedside?->Yes [facility] 1980 Sex: MFINAL REPORT RAD, CHEST, 1 VIEW, NON DEPT INDICATION: femoral IABP COMPARISON: Priorday's exam FINDINGS: Portable frontal view of the chest. IMPRESSION: Support Lines: [place]-Ashli tip overlies the pulmonary outflow tract. PICC tip overlies the atriocaval junction. Lungs and pleura: Lungs are clear No significant pneumothorax. Heart and mediastinum: Stable contours. Additional findings:None. Signed: Natalee Orta Verified Date/Time: 06/11/2022 10:39:13 Reading Location: [address] Reading Room POCT-GLUCOSE METER 2022-06-11 07:42:27 Test Item Value Reference Range Interpretation Comments POC-GLUCOSE METER 121 mg/dL 70-110 H : TESTED A T [facility] 6720 (BEAKER) (test code = [place], 1538) [address]: Hand Slitter/Techni macrina ID = [id number] for AG GILBERTO CHASE OXYGEN SATURATION, [id number] 06:43:59 Test Item Value Reference Range Interpretation Comments O2 SATURATION (MEASURED) (BEAKER) 75.8 % (test code = 1455) OXYGEN SATURATION, [id number] 06:01:15 Test Item Value Reference Range Interpretation Comments O2 SATURATION (MEASURED) (BEAKER) 94.0 % (test code = 1455) BASIC METABOLIC [id number] 04:50:32 Test Item Value Reference Range Interpretation Comments SODIUM (BEAKER) 132 meq/L 136-145 L (test code = 381) POTASSIUM 4.4 meq/L 3.5-5.1 (BEAKER) (test code = 379) CHLORIDE (BEAKER) 101 meq/L 98-107 (test code = 382) CO2 (BEAKER) 23 meq/L 22-29 (test code = 355) BLOOD UREA 7 mg/dL 7-21 NITROGEN (BEAKER) (test code = 354) CREATININE 1.04 mg/dL 0.57-1.25 (BEAKER) (test code = 358) GLUCOSE RANDOM 119 mg/dL 70-105 H (BEAKER) (test code = 652) CALCIUM (BEAKER) 9.2 mg/dL 8.4-10.2 (test code = 697) EGFR (BEAKER) 93 Interpretatio n of eGFR (test code = [...] not appl icable for dialysis patien ts Hand Slitter ID - CJ [id number] 04:50:32 Test Item Value Reference Range Interpretation Comments MAGNESIUM (BEAKER) (test code = 1.8 mg/dL 1.6-2.6 627) Hand Slitter ID Michelle CORONA WPT/[id number] 04:41:25 Test Item Value Reference Range Interpretation Comments PROTIME (BEAKER) (test code = 14.5 seconds 11.9-14.2 H 759) INR (BEAKER) (test code = 370) 1.16 <=5.90 PARTIAL THROMBOPLASTIN TIME 78.4 seconds 22.5-36.0 H (BEAKER) (test code = 760) RECOMMENDED COUMADIN/WARFARIN INR THERAPY RANGESSTANDARD DOSE: 2.0 - 3.0 Includes: PROPHYLAXIS for venous thrombosis, systemic embolization; TREATMENT for venous thrombosis and/or pulmonary embolus.HIGH RISK: Target INR is 2.5-3.5 for patients with mechanical heart valves.CBC W/PLT COUNT & AUTO [id number] 04:35:31 Test Item Value Reference Range Interpretation Comments WHITE BLOOD CELL COUNT (BEAKER) 10.8 K/ L 3.5-10.5 H (test code = 775) RED BLOOD CELL COUNT (BEAKER) 2.75 M/ L 4.63-6.08 L (test code = 761) HEMOGLOBIN (BEAKER) (test code = 7.7 GM/DL 13.7-17.5 L 410) HEMATOCRIT (BEAKER) (test code = 24.2 % 40.1-51.0 L 411) MEAN CORPUSCULAR VOLUME (BEAKER) 88 fL 79-92 (test code = 753) MEAN CORPUSCULAR HEMOGLOBIN 28.0 pg 25.7-32.2 (BEAKER) (test code = 751) MEAN CORPUSCULAR HEMOGLOBIN CONC 31.8 GM/DL 32.3-36.5 L (BEAKER) (test code = 752) RED CELL DISTRIBUTION WIDTH 16.4 % 11.6-14.4 H (BEAKER) (test code = 412) PLATELET COUNT (BEAKER) (test 169 K/CU MM 150-450 code = 756) MEAN PLATELET VOLUME (BEAKER) 8.9 fL 9.4-12.4 L (test code = 754) NUCLEATED RED BLOOD CELLS 0 /100 WBC 0-0 (BEAKER) (test code = 413) NEUTROPHILS RELATIVE PERCENT 75 % (BEAKER) (test code = 429) LYMPHOCYTES RELATIVE PERCENT 11 % (BEAKER) (test code = 430) MONOCYTES RELATIVE PERCENT 9 % (BEAKER) (test code = 431) EOSINOPHILS RELATIVE PERCENT 4 % (BEAKER) (test code = 432) BASOPHILS RELATIVE PERCENT 1 % (BEAKER) (test code = 437) NEUTROPHILS ABSOLUTE COUNT 8.05 K/ L 1.78-5.38 H (BEAKER) (test code = 670) LYMPHOCYTES ABSOLUTE COUNT 1.19 K/ L 1.32-3.57 L (BEAKER) (test code = 414) MONOCYTES ABSOLUTE COUNT (BEAKER) 0.99 K/ L 0.30-0.82 H (test code = 415) EOSINOPHILS ABSOLUTE COUNT 0.40 K/ L 0.04-0.54 (BEAKER) (test code = 416) BASOPHILS ABSOLUTE COUNT (BEAKER) 0.05 K/ L 0.01-0.08 (test code = 417) IMMATURE GRANULOCYTES-RELATIVE 0.80 % 0.00-1.00 PERCENT (BEAKER) (test code = 2801) B-TYPE NATRIURETIC FACTOR (BNP)2022-06-11 02:24:50 Test Item Value Reference Range Interpretation Comments B-TYPE NATRIURETIC PEPTIDE (BEAKER) 407 pg/mL 0-100 H (test code = 700) Hand Slitter ID - BSPOCT-GLUCOSE [id number] 22:48:21 Test Item Value Reference Range Interpretation Comments POC-GLUCOSE METER 129 mg/dL 70-110 H : TESTED A T [facility] 6720 (BEAKER) (test code = [facility], 153) [address]: Hand Slitter/Techni macrina ID = [id number] for CO RDALIDA, SARAH POCT-GLUCOSE [id number] 17:47:53 Test Item Value Reference Range Interpretation Comments POC-GLUCOSE METER 156 mg/dL 70-110 H : TESTED A T [facility] 6720 (BEAKER) (test code = [facility], 153) [address]: Hand Slitter/Techni macrina ID = [id number] for Kaye Lee [id number] 17:33:12 Test Item Value Reference Range Interpretation Comments HAPTOGLOBIN (BEAKER) (test code = 288 mg/dL 14-258 H 366) Hand Slitter ID - BSOperator ID - BSLACTATE DEHYDROGENASE (LDH)2022-06-10 16:03:13 Test Item Value Reference Range Interpretation Comments LACTATE DEHYDROGENASE (BEAKER) (test 265 U/L 125-220 H code = 635) Hand Slitter ID - [id number] 15:32:22 Test Item Value Reference Range Interpretation Comments PARTIAL THROMBOPLASTIN TIME 79.1 seconds 22.5-36.0 H (BEAKER) (test code = 760) CBC (HEMOGRAM ONLY)2022-06-10 14:01:09 Test Item Value Reference Range Interpretation Comments WHITE BLOOD CELL COUNT (BEAKER) 10.1 K/ L 3.5-10.5 (test code = 775) RED BLOOD CELL COUNT (BEAKER) 2.75 M/ L 4.63-6.08 L (test code = 761) HEMOGLOBIN (BEAKER) (test code = 7.7 GM/DL 13.7-17.5 L 410) HEMATOCRIT (BEAKER) (test code = 24.7 % 40.1-51.0 L 411) MEAN CORPUSCULAR VOLUME (BEAKER) 90 fL 79-92 (test code = 753) MEAN CORPUSCULAR HEMOGLOBIN 28.0 pg 25.7-32.2 (BEAKER) (test code = 751) MEAN CORPUSCULAR HEMOGLOBIN CONC 31.2 GM/DL 32.3-36.5 L (BEAKER) (test code = 752) RED CELL DISTRIBUTION WIDTH 16.6 % 11.6-14.4 H (BEAKER) (test code = 412) PLATELET COUNT (BEAKER) (test 163 K/CU MM 150-450 code = 756) MEAN PLATELET VOLUME (BEAKER) 9.1 fL 9.4-12.4 L (test code = 754) NUCLEATED RED BLOOD CELLS 0 /100 WBC 0-0 (BEAKER) (test code = 413) POCT-GLUCOSE [id number] 11:05:15 Test Item Value Reference Range Interpretation Comments POC-GLUCOSE METER 111 mg/dL 70-110 H : TESTED A T [facility] (BEAKER) (test code = [place], 1538) [address]: Hand Slitter/Techni macrina ID = [id number] for Kaye Lee [id number] 09:05:44 Test Item Value Reference Range Interpretation Comments PARTIAL THROMBOPLASTIN TIME 85.8 seconds 22.5-36.0 H (BEAKER) (test code = 760) CBC (HEMOGRAM ONLY)2022-06-10 08:20:33 Test Item Value Reference Range Interpretation Comments WHITE BLOOD CELL COUNT 9.1 K/ L 3.5-10.5 (BEAKER) (test code = 775) RED BLOOD CELL COUNT 2.55 M/ L 4.63-6.08 L (BEAKER) (test code = 761) HEMOGLOBIN (BEAKER) 7.3 GM/DL 13.7-17.5 L (test code = 410) HEMATOCRIT (BEAKER) 23.5 % 40.1-51.0 L (test code = 411) MEAN CORPUSCULAR 92 fL 79-92 Discordant results VOLUME (BEAKER) (test compar ed to code = 753) previous, clini elena correlation required. MEAN CORPUSCULAR 28.6 pg 25.7-32.2 HEMOGLOBIN (BEAKER) (test code = 751) MEAN CORPUSCULAR 31.1 GM/DL 32.3-36.5 L HEMOGLOBIN CONC (BEAKER) (test code = 752) RED CELL DISTRIBUTION 16.7 % 11.6-14.4 H WIDTH (BEAKER) (test code = 412) PLATELET COUNT 139 K/CU MM 150-450 L (BEAKER) (test code = 756) MEAN PLATELET VOLUME 9.0 fL 9.4-12.4 L (BEAKER) (test code = 754) NUCLEATED RED BLOOD 0 /100 WBC 0-0 CELLS (BEAKER) (test code = 413) POCT-GLUCOSE [id number] 07:34:19 Test Item Value Reference Range Interpretation Comments POC-GLUCOSE METER 131 mg/dL 70-110 H : TESTED A T [facility] 6720 (BEAKER) (test code = [place], 1538) [address]: Hand Slitter/Techni macrina ID = [id number] for Nena tinajero, Kaye RAD, CHEST, 1 VIEW, NON [id number] 06:48:00Reason for exam:->femoral IABPShould this be performed at the bedside?->Yes [facility] 1980 Sex: MFINAL REPORT RAD, CHEST, 1 VIEW, NON DEPT INDICATION: femoral IABP COMPARISON: Priorday's exam FINDINGS: Portable frontal view of the chest. IMPRESSION: Support Lines: IABP marker is 4.3 cm below the top the aortic arch. PICC tip overlies the atriocaval junction. [place]-Ashli tip overlies the pulmonary outflow tract. Lungs and pleura: Lungs are clear No significant pneumothorax. Heart and mediastinum: Stable contours. Stable surgical changes. Additional findings: None. Signed: Natalee Orta Verified Date/Time: 06/10/2022 06:48:43 BASIC METABOLIC [id number] 04:28:20 Test Item Value Reference Range Interpretation Comments SODIUM (BEAKER) 135 meq/L 136-145 L (test code = 381) POTASSIUM 3.8 meq/L 3.5-5.1 (BEAKER) (test code = 379) CHLORIDE (BEAKER) 99 meq/L 98-107 (test code = 382) CO2 (BEAKER) 26 meq/L 22-29 (test code = 355) BLOOD UREA 14 mg/dL 7-21 NITROGEN (BEAKER) (test code = 354) CREATININE 1.24 mg/dL 0.57-1.25 (BEAKER) (test code = 358) GLUCOSE RANDOM 123 mg/dL 70-105 H (BEAKER) (test code = 652) CALCIUM (BEAKER) 9.4 mg/dL 8.4-10.2 (test code = 697) EGFR (BEAKER) 75 [...] not appl icable for dialysis patien ts Hand Slitter ID - [id number] 04:28:20 Test Item Value Reference Range Interpretation Comments MAGNESIUM (BEAKER) (test code = 2.1 mg/dL 1.6-2.6 627) Hand Slitter ID - EDOXYGEN SATURATION, [id number] 04:19:31 Test Item Value Reference Range Interpretation Comments O2 SATURATION (MEASURED) (BEAKER) 73.9 % (test code = 1455) [id number] 02:22:37 Test Item Value Reference Range Interpretation Comments PARTIAL THROMBOPLASTIN TIME 73.2 seconds 22.5-36.0 H (BEAKER) (test code = 760) [id number] 19:15:01 Test Item Value Reference Range Interpretation Comments PARTIAL THROMBOPLASTIN TIME 57.0 seconds 22.5-36.0 H (BEAKER) (test code = 760) POCT-GLUCOSE [id number] 17:07:42 Test Item Value Reference Range Interpretation Comments POC-GLUCOSE METER 158 mg/dL 70-110 H : TESTED A T [facility] 6720 (BEAKER) (test code = FILEMON Alfredo [facility], 1538) [address]: Hand Slitter/Techni macrina ID = [id number] for AG UILAR, GILBERTO RAD, CHEST, 1 VIEW, NON [id number] 15:55:00Reason for exam:->re-evaluate IABP placement given poor augmentationShould this be performed at the bedside?->[facility] : 1980 Sex: MFINAL REPORT EXAMINATION: RAD, CHEST, 1 VIEW, NON DEPT. INDICATION: 41-year-old male status post IABP placement. COMPARISON: Chest radiograph dated 06/09/2022 at 5:06 AM. FINDINGS/ IMPRESSION:An IABP is noted with distal marker at the inferior margin of the aortic knob. New [place]-Ashli catheter is noted with tip overlying the right main pulmonary artery. Other findings remain unchanged. Sign ed: Sera Alvarez Verified Date/Time: 06/09/2022 15:55:27 CT, BRAIN, WITHOUT [id number] 12:31:00 [facility] : 1980 Sex: MFINAL REPORT CT, BRAIN, WITHOUT CONTRAST CLINICAL INDICATION: Unlisted Reason for Exam COMPARISON: None TECHNIQUE: Noncontrast axial CT imaging of the brain and skull. DOSE REDUCTION: Dose modulation, iterative reconstruction, and/or weight-based adjustment of the mA/kV was utilized toreduce the radiation dose to as low as reasonably achievable. FINDINGS:No intracranial hemorrhage, mi dline shift or mass effect. Midline structures are normally developed. Scattered foci of hypoattenuation are present throughout the periventricular and subcortical white matter, and, although nonspecific by imaging, statistically represent mild chronic microvascular ischemic changes in this age group.No hydrocephalus. Orbits are within normal limits. No obstructive paranasal sinus disease. IMPRESSION: No acute intracranial findings If there is persistent clinical concern for intracranial pathology,MR examination is recommended for further characterization. Signed: Natalee Orta Verified Date/Time: 06/09/2022 12:31:38 Electronically signed by: NATALEE ORTA MD on 2:31 [id number] 12:11:12 Test Item Value Reference Range Interpretation Comments PARTIAL THROMBOPLASTIN TIME 64.8 seconds 22.5-36.0 H (BEAKER) (test code = 760) POCT-GLUCOSE [id number] 11:26:31 Test Item Value Reference Range Interpretation Comments POC-GLUCOSE METER 118 mg/dL 70-110 H : TESTED A T [facility] 6720 (BEAKER) (test code = [place], 1538) [address]: Hand Slitter/Techni macrina ID = [id number] for GILBERTO HUMPHREYS RAD, CHEST, 1 VIEW, NON [id number] 08:14:00Reason for exam:->femoral IABPShould this be performed at the bedside?->Yes [facility] : 1980 Sex: MFINAL REPORT EXAMINATION: RAD, CHEST, 1 VIEW, NON DEPT. INDICATION: 41-year-old malewith femoral IABP. COMPARISON: Chest radiograph dated 06/08/2022. FINDINGS/ IMPRESSION:An IABP is noted with distal marker at the inferior margin of the aortic knob. A [place]-Ashli catheter is again noted with tip in the distal right interlobar pulmonary artery. A kinked left subclavian sheath is noted. A left arm PICC is noted. No evidence of consolidation, pleural effusion, or pneumothorax. Signed: Sera Alvarezeport Verified Date/Time: 06/09/2022 08:14:55 Reading Location: [facility] B1 C013X Ortho Consult Reading Room OXYGEN SATURATION, [id number] 04:42:24 Test Item Value Reference Range Interpretation Comments O2 SATURATION (MEASURED) (BEAKER) 78.9 % (test code = 1455) [id number] 04:36:38 Test Item Value Reference Range Interpretation Comments MAGNESIUM (BEAKER) (test code = 2.5 mg/dL 1.6-2.6 627) Hand Slitter ID - EDBASIC METABOLIC [id number] 04:36:37 Test Item Value Reference Range Interpretation Comments SODIUM (BEAKER) 135 meq/L 136-145 L (test code = 381) POTASSIUM 4.1 meq/L 3.5-5.1 (BEAKER) (test code = 379) CHLORIDE (BEAKER) 94 meq/L 98-107 L (test code = 382) CO2 (BEAKER) 28 meq/L 22-29 (test code = 355) BLOOD UREA 26 mg/dL 7-21 H NITROGEN (BEAKER) (test code = 354) CREATININE 1.84 mg/dL 0.57-1.25 H (BEAKER) (test code = 358) GLUCOSE RANDOM 110 mg/dL 70-105 H (BEAKER) (test code = 652) CALCIUM (BEAKER) 9.9 mg/dL 8.4-10.2 (test code = 697) EGFR (BEAKER) 47 Interpretatio n of eGFR (test code = [...] not appl icable for dialysis patien ts Hand Slitter ID - [id number] 04:27:10 Test Item Value Reference Range Interpretation Comments PARTIAL THROMBOPLASTIN TIME 46.6 seconds 22.5-36.0 H (BEAKER) (test code = 760) CBC W/PLT COUNT & AUTO [id number] 04:15:03 Test Item Value Reference Range Interpretation Comments WHITE BLOOD CELL COUNT (BEAKER) 10.5 K/ L 3.5-10.5 (test code = 775) RED BLOOD CELL COUNT (BEAKER) 3.21 M/ L 4.63-6.08 L (test code = 761) HEMOGLOBIN (BEAKER) (test code = 8.9 GM/DL 13.7-17.5 L 410) HEMATOCRIT (BEAKER) (test code = 28.3 % 40.1-51.0 L 411) MEAN CORPUSCULAR VOLUME (BEAKER) 88 fL 79-92 (test code = 753) MEAN CORPUSCULAR HEMOGLOBIN 27.7 pg 25.7-32.2 (BEAKER) (test code = 751) MEAN CORPUSCULAR HEMOGLOBIN CONC 31.4 GM/DL 32.3-36.5 L (BEAKER) (test code = 752) RED CELL DISTRIBUTION WIDTH 17.2 % 11.6-14.4 H (BEAKER) (test code = 412) PLATELET COUNT (BEAKER) (test 154 K/CU MM 150-450 code = 756) MEAN PLATELET VOLUME (BEAKER) 9.3 fL 9.4-12.4 L (test code = 754) NUCLEATED RED BLOOD CELLS 0 /100 WBC 0-0 (BEAKER) (test code = 413) NEUTROPHILS RELATIVE PERCENT 74 % (BEAKER) (test code = 429) LYMPHOCYTES RELATIVE PERCENT 12 % (BEAKER) (test code = 430) MONOCYTES RELATIVE PERCENT 11 % (BEAKER) (test code = 431) EOSINOPHILS RELATIVE PERCENT 1 % (BEAKER) (test code = 432) BASOPHILS RELATIVE PERCENT 0 % (BEAKER) (test code = 437) NEUTROPHILS ABSOLUTE COUNT 7.83 K/ L 1.78-5.38 H (BEAKER) (test code = 670) LYMPHOCYTES ABSOLUTE COUNT 1.29 K/ L 1.32-3.57 L (BEAKER) (test code = 414) MONOCYTES ABSOLUTE COUNT (BEAKER) 1.16 K/ L 0.30-0.82 H (test code = 415) EOSINOPHILS ABSOLUTE COUNT 0.10 K/ L 0.04-0.54 (BEAKER) (test code = 416) BASOPHILS ABSOLUTE COUNT (BEAKER) 0.03 K/ L 0.01-0.08 (test code = 417) IMMATURE GRANULOCYTES-RELATIVE 1.00 % 0.00-1.00 PERCENT (BEAKER) (test code = 2801) POCT-GLUCOSE [id number] 18:49:07 Test Item Value Reference Range Interpretation Comments POC-GLUCOSE METER 145 mg/dL 70-110 H : TESTED A T [facility] 6720 (BEAKER) (test code = [place], 1538) [address]: Hand Slitter/Techni macrina ID = [id number] for FLORENTINO ROBLES JINNY RAD, CHEST, 1 VIEW, NON [id number] 18:00:00Reason for exam:- >aspirationShould this be performed at the bedside?->Yes [facility] : 1980 Sex: MFINAL REPORT EXAMINATION: RAD, CHEST, 1 VIEW, NON DEPT. INDICATION: 41-year-old malewith concern for aspiration. COMPARISON: Chest radiograph dated 06/08/2022 at 3:32 AM. FINDINGS/ IMPRESSION:An IABP is noted with distal marker at the inferior margin of the aortic knob. A [place]-Ashli catheter is noted with tip in the distal right interlobar pulmonary artery, unchanged. A left subclaviansheath is noted. A left arm PICC is noted. No evidence of aspiration on plain film. Signed: Sera Alvarez Verified Date/Time: 06/08/2022 18:00:53 Reading Location: [facility] B1 C013X Ortho Consult Reading Room [id number] 16:51:30 Test Item Value Reference Range Interpretation Comments PHOSPHORUS (BEAKER) 5.8 mg/dL 2.3-4.7 H Specimen slightly (test code = 604) hemolyzed Hand Slitter ID - EDBASIC METABOLIC [id number] 16:51:30 Test Item Value Reference Range Interpretation Comments SODIUM (BEAKER) 133 meq/L 136-145 L (test code = 381) POTASSIUM 4.7 meq/L 3.5-5.1 Specimen slight ly (BEAKER) (test hemolyzed code = 379) CHLORIDE (BEAKER) 93 meq/L 98-107 L (test code = 382) CO2 (BEAKER) 26 meq/L 22-29 (test code = 355) BLOOD UREA 22 mg/dL 7-21 H NITROGEN (BEAKER) (test code = 354) CREATININE 1.68 mg/dL 0.57-1.25 H Specimen slight ly (BEAKER) (test hemolyzed code = 358) GLUCOSE RANDOM 132 mg/dL 70-105 H (BEAKER) (test code = 652) CALCIUM (BEAKER) 9.8 mg/dL 8.4-10.2 (test code = 697) EGFR (BEAKER) 52 Interpretatio n of eGFR (test code = [...] not appl icable for dialysis patien ts Hand Slitter ID - [id number] 16:51:29 Test Item Value Reference Range Interpretation Comments MAGNESIUM (BEAKER) 2.4 mg/dL 1.6-2.6 Specimen slightly (test code = 627) hemolyzed Hand Slitter ID - EDPROTHROMBIN [id number] 16:50:07 Test Item Value Reference Range Interpretation Comments PROTIME (BEAKER) (test code = 15.1 seconds 11.9-14.2 H 759) INR (BEAKER) (test code = 370) 1.27 <=5.90 RECOMMENDED COUMADIN/WARFARIN INR THERAPY RANGESSTANDARD DOSE: 2.0 - 3.0 Includes: PROPHYLAXIS for venous thrombosis, systemic embolization; TREATMENT for venous thrombosis and/or pulmonary embolus.HIGH RISK: Target INR is 2.5-3.5 for patients with mechanical heart valves.CBC W/PLT COUNT & AUTO [id number] 16:43:38 Test Item Value Reference Range Interpretation Comments WHITE BLOOD CELL COUNT (BEAKER) 10.5 K/ L 3.5-10.5 (test code = 775) RED BLOOD CELL COUNT (BEAKER) 3.39 M/ L 4.63-6.08 L (test code = 761) HEMOGLOBIN (BEAKER) (test code = 9.6 GM/DL 13.7-17.5 L 410) HEMATOCRIT (BEAKER) (test code = 29.5 % 40.1-51.0 L 411) MEAN CORPUSCULAR VOLUME (BEAKER) 87 fL 79-92 (test code = 753) MEAN CORPUSCULAR HEMOGLOBIN 28.3 pg 25.7-32.2 (BEAKER) (test code = 751) MEAN CORPUSCULAR HEMOGLOBIN CONC 32.5 GM/DL 32.3-36.5 (BEAKER) (test code = 752) RED CELL DISTRIBUTION WIDTH 17.2 % 11.6-14.4 H (BEAKER) (test code = 412) PLATELET COUNT (BEAKER) (test 159 K/CU MM 150-450 code = 756) MEAN PLATELET VOLUME (BEAKER) 8.9 fL 9.4-12.4 L (test code = 754) NUCLEATED RED BLOOD CELLS 0 /100 WBC 0-0 (BEAKER) (test code = 413) NEUTROPHILS RELATIVE PERCENT 88 % (BEAKER) (test code = 429) LYMPHOCYTES RELATIVE PERCENT 6 % (BEAKER) (test code = 430) MONOCYTES RELATIVE PERCENT 4 % (BEAKER) (test code = 431) EOSINOPHILS RELATIVE PERCENT 1 % (BEAKER) (test code = 432) BASOPHILS RELATIVE PERCENT 1 % (BEAKER) (test code = 437) NEUTROPHILS ABSOLUTE COUNT 9.20 K/ L 1.78-5.38 H (BEAKER) (test code = 670) LYMPHOCYTES ABSOLUTE COUNT 0.58 K/ L 1.32-3.57 L (BEAKER) (test code = 414) MONOCYTES ABSOLUTE COUNT (BEAKER) 0.43 K/ L 0.30-0.82 (test code = 415) EOSINOPHILS ABSOLUTE COUNT 0.15 K/ L 0.04-0.54 (BEAKER) (test code = 416) BASOPHILS ABSOLUTE COUNT (BEAKER) 0.06 K/ L 0.01-0.08 (test code = 417) IMMATURE GRANULOCYTES-RELATIVE 0.90 % 0.00-1.00 PERCENT (BEAKER) (test code = 2801) OXYGEN SATURATION, [id number] 16:41:20 Test Item Value Reference Range Interpretation Comments O2 SATURATION (MEASURED) (BEAKER) 81.5 % (test code = 1455) CT, CTANGIO [id number] 13:56:00Reason for exam:->Symptoms onset less than 6 hours and NIHSS [address] [facility] : 1980 Sex: MAddendum BeginsREPORT STATUS:A Addendum: On coronal images of the chest, there is a linear area of hypoattenuation extending from the left axillary line within the left subclavian. Although the entire lumen opacifies, vascular dissection would be an additional consideration. Signed: Natalee Orta MDReport Verified Date/Time: 06/08/2022 13:56:[address], CTANGIO BRAIN, CT, CAROTID, ANGIOBRAIN CT WITHOUT CONTRAST INDICATION: Neuro deficit, acute, stroke suspectedSymptoms onset less than 6 hours and NIHSS 6 or greater COMPARISON: CT head of the same date TECHNIQUE:Rapid acquisition spiral images were obtained between the aortic arch and the cranial vertex during intravenous contrast infusion to reconstruct axial images and angiographic 3D maximum intensity projections (MIP). 3-D volumetric reformatted images were created at a dedicated workstation. Precontrast images of the brain were also obtained. Stenosis evaluation reported in compliance with NASCET criteria. DOSE REDUCTION: Dose modulation, iterative reconstruction, and/or weight-based adjustment of the mA/kV was utilized to reduce the radiation dose to as low as reasonably achievable. FINDINGS: CTA BRAIN:Internal carotid arteries: Petrous, cavernous and supraclinoid portions patent. Middle cerebral arteries: Bilateral MCA M1-M2 branches demonstrate normal contrast enhancement.Anterior cerebral arteries: Bilateral LUCIEN A1-A2 branches demonstrate normal contrast enhancement.Basilar system and posterior cerebral arteries: Lack of contrast opacification of the distal left basilar artery concerning for occlusion. The left posterior cerebral artery opacifies the robust left posterior communicating artery. The right posterior cerebral artery does not opacify.Venous opacification: Major dural sinuses unremarkable for bolus timing.Additional findings: None. CTA NECK:Common carotid arteries: There is normal contrast opacification of the bilateral common carotid arteries.Cervical internal carotid arteries: Normal contrast opacification of the bilateral cervical internal carotid arteries without significant stenosis by NASCET criteria.Vertebral arteries: Normal contrast opacificationof the bilateral cervical vertebral arteries.Arch anatomy: Conventional. Nonvascular findings:No acute findings within the neck soft tissues. IMPRESSION:1.Lack of contrast opacification of the distal left basilar artery concerning for occlusion. The left posterior cerebral artery opacifies the robust left posterior communicating artery. The right posterior cerebral artery does not opacify.2.Vertebralarteries are small in caliber bilaterally, however, the left is slightly larger.3.Of note, there is a left axillary approach arterial line which terminates 8 mm prior to the left vertebral artery origin. There is some decreased signal within the left subclavian and it is unclear if this represents a web or contrast mixing. Findings conveyed to neurology team ( who were at the CT scanner). Signed: Natalee Orta Verified Date/Time: 06/08/2022 13:42:01 CT, CAROTID, [id number] 13:56:00Reason for exam:->Symptoms onset less than 6 hours and NIHSS 6 or greater [facility] 1980 Sex: MAddendum BeginsREPORT STATUS:A Addendum: On coronal images of the chest, there is alinear area of hypoattenuation extending from the left axillary line within the left subclavian. Although the entire lumen opacifies, vascular dissection would be an additional consideration. Signed: Natalee Orta Verified Date/Time: 06/08/2022 13:56:[address], CTANGIO BRAIN, CT, CAROTID, ANGIOBRAIN CT WITHOUT CONTRAST INDICATION: Neuro deficit, acute, stroke suspectedSymptoms onset less than 6 hours and NIHSS 6 or greater COMPARISON: CT head of the same date TECHNIQUE:Rapid acquisition spiral images were obtained between the aortic arch and thecranial vertex during intravenous contrast infusion to reconstruct axial images and angiographic 3D maximum intensity projections (MIP). 3-D volumetric reformatted images were created at a dedicated workstation. Precontrast images of the brain were also obtained. Stenosis evaluation reported in compliance with NASCET criteria. DOSE REDUCTION: Dose modulation, iterative reconstruction, and/or weight-based adjustment of the mA/kV was utilized to reduce the radiation dose to as low as reasonably achievable. FINDINGS: CTA BRAIN:Internal carotid arteries: Petrous, cavernous and supraclinoid portions patent. Middle cerebral arteries: Bilateral MCA M1-M2 branches demonstrate normal contrast enhancement.Anterior cerebral arteries: Bilateral LUCIEN A1-A2 branches demonstrate normal contrast enhancement.Basilar system and posterior cerebral arteries: Lack of contrast opacification of the distal left basilar artery concerning for occlusion. The left posterior cerebral artery opacifies the robust left posterio r communicating artery. The right posterior cerebral artery does not opacify.Venous opacification: Major dural sinuses unremarkable for bolus timing.Additional findings: None. CTA NECK:Common carotid arteries: There is normal contrast opacification of the bilateral common carotid arteries.Cervical internal carotid arteries: Normal contrast opacification of the bilateral cervical internal carotid arteries without significant stenosis by NASCET criteria.Vertebral arteries: Normal contrast opacification of the bilateral cervical vertebral arteries.Arch anatomy: Conventional. Nonvascular findings:No acute findings within the neck soft tissues. IMPRESSION:1.Lack of contrast opacification of the distal left basilar artery concerning for occlusion. The left posterior cerebral artery opacifies the robustleft posterior communicating artery. The right posterior cerebral artery does not opacify.2.Vertebral arteries are small in caliber bilaterally, however, the left is slightly larger.3.Of note, there thuan left axillary approach arterial line which terminates 8 mm prior to the left vertebral artery origin. There is some decreased signal within the left subclavian and it is unclear if this represents a web or contrast mixing. Findings conveyed to neurology team ( who were at the CT scanner). Signed: Natalee Orta MDRepozarks medical center Verified Date/Time: 06/08/2022 13:42:01 CT, BRAIN, WITHOUT [id number] 13:16:00 [facility] [place] : 1980 Sex: MFINAL REPORT CT, BRAIN, WITHOUT CONTRAST CLINICAL INDICATION: Neuro deficit, acute, stroke suspected COMPARISON: 05/17/2022 TECHNIQUE: Noncontrast axial CT imaging of the brain and skull.DOSE REDUCTION: Dose modulation, iterative reconstruction, and/or weight-based adjustment of the mA/kV was utilized to reduce the radiation dose to as low as reasonably achievable. FINDINGS:No intracranial hemorrhage, midline shift or mass effect. Midline structures are normally developed. Scattered foci of hypoattenuation are present throughout the periventricular and subcortical white matter, and, although nonspecific by imaging, statistically represent mild chronic microvascular ischemic changes in this age group. No hydrocephalus. Orbits are within normal limits. Small volume layering fluid within the left posterior maxillary sinus. IMPRESSION: No acute intracranial findings If there is persistent clinical concern for intracranial pathology, MR examination is recommended for further characterization. Signed: Natalee Orta MDReport Verified Date/Time: 06/08/2022 13:16:19 BASI METABOLIC [id number] 13:04:31 Test Item Value Reference Range Interpretation Comments SODIUM (BEAKER) 134 meq/L 136-145 L (test code = 381) POTASSIUM 4.3 meq/L 3.5-5.1 (BEAKER) (test code = 379) CHLORIDE (BEAKER) 94 meq/L 98-107 L (test code = 382) CO2 (BEAKER) 29 meq/L 22-29 (test code = 355) BLOOD UREA 23 mg/dL 7-21 H NITROGEN (BEAKER) (test code = 354) CREATININE 1.62 mg/dL 0.57-1.25 H (BEAKER) (test code = 358) GLUCOSE RANDOM 130 mg/dL 70-105 H (BEAKER) (test code = 652) CALCIUM (BEAKER) 10.2 mg/dL 8.4-10.2 (test code = 697) EGFR (BEAKER) 55 [...] not appl icable for dialysis patien ts Hand Slitter ID - EDPROTHROMBIN [id number] 12:56:21 Test Item Value Reference Range Interpretation Comments PROTIME (MIA) (test code = 15.6 seconds 11.9-14.2 H 759) INR (MIA) (test code = 370) 1.32 <=5.90 RECOMMENDED COUMADIN/WARFARIN INR THERAPY RANGESSTANDARD DOSE: 2.0 - 3.0 Includes: PROPHYLAXIS for venous thrombosis, systemic embolization; TREATMENT for venous thrombosis and/or pulmonary embolus.HIGH RISK: Target INR is 2.5-3.5 for patients with mechanical heart valves.POCT-GLUCOSE [id number] 12:55:33 Test Item Value Reference Range Interpretation Comments POC-GLUCOSE METER 145 mg/dL 70-110 H : TESTED A T [facility] 6720 (MIA) (test code = FILEMON Fuentes [facility], 1538) [address]: Hand Slitter/Techni macrina ID = [id number] for HENDRICKSON NOELLEODALYS MAYUR LACTIC ACID, [id number] 10:26:44 Test Item Value Reference Range Interpretation Comments LACTATE BLOOD VENOUS 1.84 mmol/L 0.50-2.00 Specime n slightly (2) (MIA) (test hemolyzed code = 2872) Hand Slitter ID - MMDIGOXIN [id number] 09:19:34 Test Item Value Reference Range Interpretation Comments DIGOXIN LEVEL (MIA) (test code 1.07 ng/mL 0.80-2.00 = 669) Hand Slitter ID - MMRAD, CHEST, 1 VIEW, NON [id number] 08:23:00Reason for exam:- >femoral IABPShould this be performed at the bedside?->Yes [facility] : 1980 Sex: MFINAL REPORT Chest one view: HISTORY: IABP Compared to 06/07/2022. The IABP marker is unchanged in position again at the level of the apex of the aortic arch and possibly within a greatvessel origin. A left-sided PICC line and right jugular [place]-Ashli catheter are again noted. The tip of the [place]-Ashli catheter is in the proximal right lower lobe pulmonary artery. A left subclavian sheath is again noted. There is minimal right basilar atelectasis. The lungs otherwise appear clear. Cardiac size is unchanged. Signed: Yvrose [place] MDReport Verified Date/Time: 06/08/2022 08:23:38 BASIC METABOLIC PANEL 2022-06-08 06:51:12 Test Item Value Reference Range Interpretation Comments SODIUM (BEAKER) 136 meq/L 136-145 (test code = 381) POTASSIUM 3.7 meq/L 3.5-5.1 (BEAKER) (test code = 379) CHLORIDE (BEAKER) 95 meq/L 98-107 L (test code = 382) CO2 (BEAKER) 27 meq/L 22-29 (test code = 355) BLOOD UREA 25 mg/dL 7-21 H NITROGEN (BEAKER) (test code = 354) CREATININE 1.53 mg/dL 0.57-1.25 H (BEAKER) (test code = 358) GLUCOSE RANDOM 125 mg/dL 70-105 H (BEAKER) (test code = 652) CALCIUM (BEAKER) 10.3 mg/dL 8.4-10.2 H (test code = 697) EGFR (BEAKER) 59 [...] not appl icable for dialysis patien ts Hand Slitter ID - [id number] 06:51:12 Test Item Value Reference Range Interpretation Comments MAGNESIUM (BEAKER) (test code = 2.1 mg/dL 1.6-2.6 627) Hand Slitter ID - [id number] 06:04:04 Test Item Value Reference Range Interpretation Comments PARTIAL THROMBOPLASTIN TIME 81.1 seconds 22.5-36.0 H (BEAKER) (test code = 760) OXYGEN SATURATION, [id number] 05:48:12 Test Item Value Reference Range Interpretation Comments O2 SATURATION (MEASURED) (BEAKER) 72.5 % (test code = 1455) POCT-GLUCOSE [id number] 22:28:51 Test Item Value Reference Range Interpretation Comments POC-GLUCOSE METER 136 mg/dL 70-110 H : TESTED A T [facility] 6720 (BEAKER) (test code = FILEMON Fuentes [facility], 1538) [address]: Hand Slitter/Techni macrina ID = [id number] for Ksenia Jara [id number] 13:14:58 Test Item Value Reference Range Interpretation Comments PARTIAL THROMBOPLASTIN TIME 56.0 seconds 22.5-36.0 H (BEAKER) (test code = 760) RAD, CHEST, 1 VIEW, NON [id number] 08:41:00Reason for exam:->femoral IABPShould this be performed at the bedside?->Yes [facility] 1980 Sex: MFINAL REPORT CLINICAL HISTORY: femoral IABP TECHNIQUE: 1 view of the chest. COMPARISON: 06/06/2022 IMPRESSION: The clip-like marker of the IABP catheter projects just above the aortic arch, likely in the origin of a great vessel. The [place]-Ashli catheter remains in the right pulmonary artery. No infiltrates or effusions. No cardiomegaly Signed: Raheel Tyson [facility] Verified Date/Time: 06/07/2022 08:41:36 [id number] 06:35:09 Test Item Value Reference Range Interpretation Comments PARTIAL THROMBOPLASTIN TIME 65.9 seconds 22.5-36.0 H (MIA) (test code = 760) POCT-GLUCOSE [id number] 06:08:05 Test Item Value Reference Range Interpretation Comments POC-GLUCOSE METER 135 mg/dL 70-110 H : Notified RN/MD: (MIA) (test code = TESTED AT [facility] 6720 1538) [facility], [address]: Hand Slitter/Techni macrina ID = [id number] for LUC ZAMORA [id number] 04:40:11 Test Item Value Reference Range Interpretation Comments PARTIAL THROMBOPLASTIN TIME > seconds 22.5-36.0 HH (MIA) (test code = 760) [id number] 04:31:17 Test Item Value Reference Range Interpretation Comments MAGNESIUM (MIA) 2.8 mg/dL 1.6-2.6 H Specimen slightly (test code = 627) hemolyzed Hand Slitter ID - MARCOBASIC METABOLIC [id number] 04:31:17 Test Item Value Reference Range Interpretation Comments SODIUM (BEAKER) 135 meq/L 136-145 L (test code = 381) POTASSIUM 4.2 meq/L 3.5-5.1 Specimen slight ly (BEAKER) (test hemolyzed code = 379) CHLORIDE (BEAKER) 93 meq/L 98-107 L (test code = 382) CO2 (BEAKER) 27 meq/L 22-29 (test code = 355) BLOOD UREA 28 mg/dL 7-21 H NITROGEN (BEAKER) (test code = 354) CREATININE 1.72 mg/dL 0.57-1.25 H Specimen slight ly (BEAKER) (test hemolyzed code = 358) GLUCOSE RANDOM 189 mg/dL 70-105 H (BEAKER) (test code = 652) CALCIUM (BEAKER) 10.2 mg/dL 8.4-10.2 (test code = 697) EGFR (BEAKER) 51 Interpretatio n of eGFR (test code = [...] not appl icable for dialysis patien ts Hand Slitter ID - MARCOPROTHROMBIN [id number] 04:11:34 Test Item Value Reference Range Interpretation Comments PROTIME (BEAKER) (test code = 15.5 seconds 11.9-14.2 H 759) INR (BEAKER) (test code = 370) 1.31 <=5.90 RECOMMENDED COUMADIN/WARFARIN INR THERAPY RANGESSTANDARD DOSE: 2.0 - 3.0 Includes: PROPHYLAXIS for venous thrombosis, systemic embolization; TREATMENT for venous thrombosis and/or pulmonary embolus.HIGH RISK: Target INR is 2.5-3.5 for patients with mechanical heart valves.CBC W/PLT COUNT & AUTO [id number] 04:10:22 Test Item Value Reference Range Interpretation Comments WHITE BLOOD CELL COUNT (BEAKER) 11.8 K/ L 3.5-10.5 H (test code = 775) RED BLOOD CELL COUNT (BEAKER) 3.35 M/ L 4.63-6.08 L (test code = 761) HEMOGLOBIN (BEAKER) (test code = 9.5 GM/DL 13.7-17.5 L 410) HEMATOCRIT (BEAKER) (test code = 29.8 % 40.1-51.0 L 411) MEAN CORPUSCULAR VOLUME (BEAKER) 89 fL 79-92 (test code = 753) MEAN CORPUSCULAR HEMOGLOBIN 28.4 pg 25.7-32.2 (BEAKER) (test code = 751) MEAN CORPUSCULAR HEMOGLOBIN CONC 31.9 GM/DL 32.3-36.5 L (BEAKER) (test code = 752) RED CELL DISTRIBUTION WIDTH 17.2 % 11.6-14.4 H (BEAKER) (test code = 412) PLATELET COUNT (BEAKER) (test 169 K/CU MM 150-450 code = 756) MEAN PLATELET VOLUME (BEAKER) 9.6 fL 9.4-12.4 (test code = 754) NUCLEATED RED BLOOD CELLS 0 /100 WBC 0-0 (BEAKER) (test code = 413) NEUTROPHILS RELATIVE PERCENT 73 % (BEAKER) (test code = 429) LYMPHOCYTES RELATIVE PERCENT 13 % (BEAKER) (test code = 430) MONOCYTES RELATIVE PERCENT 9 % (BEAKER) (test code = 431) EOSINOPHILS RELATIVE PERCENT 4 % (BEAKER) (test code = 432) BASOPHILS RELATIVE PERCENT 1 % (BEAKER) (test code = 437) NEUTROPHILS ABSOLUTE COUNT 8.65 K/ L 1.78-5.38 H (BEAKER) (test code = 670) LYMPHOCYTES ABSOLUTE COUNT 1.49 K/ L 1.32-3.57 (BEAKER) (test code = 414) MONOCYTES ABSOLUTE COUNT (BEAKER) 1.05 K/ L 0.30-0.82 H (test code = 415) EOSINOPHILS ABSOLUTE COUNT 0.42 K/ L 0.04-0.54 (BEAKER) (test code = 416) BASOPHILS ABSOLUTE COUNT (BEAKER) 0.08 K/ L 0.01-0.08 (test code = 417) IMMATURE GRANULOCYTES-RELATIVE 1.10 % 0.00-1.00 H PERCENT (BEAKER) (test code = 2801) LACTIC ACID, [id number] 04:08:32 Test Item Value Reference Range Interpretation Comments LACTATE BLOOD VENOUS 1.26 mmol/L 0.50-2.00 Specime n slightly (2) (BEAKER) (test hemolyzed code = 2872) Hand Slitter ID - MARCOOXYGEN SATURATION, [id number] 03:41:31 Test Item Value Reference Range Interpretation Comments O2 SATURATION (MEASURED) (BEAKER) 66.6 % (test code = 1455) [id number] 22:53:48 Test Item Value Reference Range Interpretation Comments MAGNESIUM (BEAKER) (test code = 2.2 mg/dL 1.6-2.6 627) Hand Slitter ID - ADMINBASIC METABOLIC [id number] 22:53:47 Test Item Value Reference Range Interpretation Comments SODIUM (BEAKER) 134 meq/L 136-145 L (test code = 381) POTASSIUM 4.1 meq/L 3.5-5.1 (BEAKER) (test code = 379) CHLORIDE (BEAKER) 94 meq/L 98-107 L (test code = 382) CO2 (BEAKER) 25 meq/L 22-29 (test code = 355) BLOOD UREA 28 mg/dL 7-21 H NITROGEN (BEAKER) (test code = 354) CREATININE 1.83 mg/dL 0.57-1.25 H (BEAKER) (test code = 358) GLUCOSE RANDOM 151 mg/dL 70-105 H (BEAKER) (test code = 652) CALCIUM (BEAKER) 10.2 mg/dL 8.4-10.2 (test code = 697) EGFR (BEAKER) 47 Interpretatio n of eGFR (test code = [...] not appl icable for dialysis patien ts Hand Slitter ID - ADMINLACTIC ACID, [id number] 22:44:18 Test Item Value Reference Range Interpretation Comments LACTATE BLOOD VENOUS (2) (BEAKER) 3.12 mmol/L 0.50-2.00 H (test code = 2872) Hand Slitter ID - ADMINOXYGEN SATURATION, [id number] 22:32:45 Test Item Value Reference Range Interpretation Comments O2 SATURATION (MEASURED) (BEAKER) 67.0 % (test code = 1455) POCT-GLUCOSE [id number] 20:39:11 Test Item Value Reference Range Interpretation Comments POC-GLUCOSE METER 138 mg/dL 70-110 H : TESTED A T [facility] 6720 ([facility]) (test code [facility], = 1538) [address]: Hand Slitter/Techni macrina ID = [id number] for [place] ([place] [id number] 13:42:54 Test Item Value Reference Range Interpretation Comments PARTIAL THROMBOPLASTIN TIME 65.4 seconds 22.5-36.0 H (BEAKER) (test code = 760) POCT-GLUCOSE [id number] 11:13:50 Test Item Value Reference Range Interpretation Comments POC-GLUCOSE METER 106 mg/dL 70-110 : TESTED A T [facility] 6720 ([facility]) (test code = FILEMON Fuentes [facility], 1538) [address]: Hand Slitter/Techni macrina ID = [id number] for AG UILARGILBERTO RAD, CHEST, 1 VIEW, NON [id number] 09:50:00Reason for exam:->balloon placementShould this be performed at the bedside?->Yes [facility] : 1980 Sex: MFINAL REPORT CLINICAL HISTORY: balloon placement TECHNIQUE: 1 view of the chest. COMPARISON: 06/06/2022 IMPRESSION: IABP catheter advanced to the aortic knob. [place]-Ashli catheter remains in the right pulmonary outflow tract. Slightly focal opacity seen in the right midlung. No pleural effusions. No cardiomegaly. Signed: Raheel Tyson Verified Date/Time: 06/06/2022 09:50:44 , CHEST, 1 VIEW, NON [id number] 09:46:00Reason for exam:->femoral IABPShould this be performed at the bedside?->Yes [facility] 1980 Sex: MFINAL REPORT CLINICAL HISTORY: femoral IABP TECHNIQUE: 1 view of the chest. COMPARISON: 06/05/2022 IMPRESSION: The IABP marker projects roughly 8 cm below the aortic knob. [place]-Ashli catheter remains in the right pulmonary artery. No infiltrates or effusions. No cardiomegaly. Signed: Raheel Tyson Verified Date/Time: 06/06/2022 09:46:42 BASIC METABOLIC [id number] 06:17:39 Test Item Value Reference Range Interpretation Comments SODIUM (BEAKER) 134 meq/L 136-145 L (test code = 381) POTASSIUM 4.2 meq/L 3.5-5.1 (BEAKER) (test code = 379) CHLORIDE (BEAKER) 94 meq/L 98-107 L (test code = 382) CO2 (BEAKER) 28 meq/L 22-29 (test code = 355) BLOOD UREA 28 mg/dL 7-21 H NITROGEN (BEAKER) (test code = 354) CREATININE 1.69 mg/dL 0.57-1.25 H (BEAKER) (test code = 358) GLUCOSE RANDOM 119 mg/dL 70-105 H (BEAKER) (test code = 652) CALCIUM (BEAKER) 10.1 mg/dL 8.4-10.2 (test code = 697) EGFR (BEAKER) 52 Interpretati on of eGFR (test code = mL/min/1.73 values [...] not appl icable for dialysis patien ts Hand Slitter ID - [id number] 06:17:39 Test Item Value Reference Range Interpretation Comments MAGNESIUM (BEAKER) (test code = 2.7 mg/dL 1.6-2.6 H 627) Hand Slitter ID - [id number] 05:24:35 Test Item Value Reference Range Interpretation Comments PARTIAL THROMBOPLASTIN TIME 63.2 seconds 22.5-36.0 H (BEAKER) (test code = 760) CBC W/PLT COUNT & AUTO [id number] 05:15:36 Test Item Value Reference Range Interpretation Comments WHITE BLOOD CELL COUNT (BEAKER) 11.6 K/ L 3.5-10.5 H (test code = 775) RED BLOOD CELL COUNT (BEAKER) 3.28 M/ L 4.63-6.08 L (test code = 761) HEMOGLOBIN (BEAKER) (test code = 9.0 GM/DL 13.7-17.5 L 410) HEMATOCRIT (BEAKER) (test code = 28.2 % 40.1-51.0 L 411) MEAN CORPUSCULAR VOLUME (BEAKER) 86 fL 79-92 (test code = 753) MEAN CORPUSCULAR HEMOGLOBIN 27.4 pg 25.7-32.2 (BEAKER) (test code = 751) MEAN CORPUSCULAR HEMOGLOBIN CONC 31.9 GM/DL 32.3-36.5 L (BEAKER) (test code = 752) RED CELL DISTRIBUTION WIDTH 16.7 % 11.6-14.4 H (BEAKER) (test code = 412) PLATELET COUNT (BEAKER) (test 146 K/CU MM 150-450 L code = 756) MEAN PLATELET VOLUME (BEAKER) 9.5 fL 9.4-12.4 (test code = 754) NUCLEATED RED BLOOD CELLS 0 /100 WBC 0-0 (BEAKER) (test code = 413) NEUTROPHILS RELATIVE PERCENT 70 % (BEAKER) (test code = 429) LYMPHOCYTES RELATIVE PERCENT 15 % (BEAKER) (test code = 430) MONOCYTES RELATIVE PERCENT 8 % (BEAKER) (test code = 431) EOSINOPHILS RELATIVE PERCENT 5 % (BEAKER) (test code = 432) BASOPHILS RELATIVE PERCENT 1 % (BEAKER) (test code = 437) NEUTROPHILS ABSOLUTE COUNT 8.09 K/ L 1.78-5.38 H (BEAKER) (test code = 670) LYMPHOCYTES ABSOLUTE COUNT 1.79 K/ L 1.32-3.57 (BEAKER) (test code = 414) MONOCYTES ABSOLUTE COUNT (BEAKER) 0.98 K/ L 0.30-0.82 H (test code = 415) EOSINOPHILS ABSOLUTE COUNT 0.53 K/ L 0.04-0.54 (BEAKER) (test code = 416) BASOPHILS ABSOLUTE COUNT (BEAKER) 0.11 K/ L 0.01-0.08 H (test code = 417) IMMATURE GRANULOCYTES-RELATIVE 1.10 % 0.00-1.00 H PERCENT (BEAKER) (test code = 2801) OXYGEN SATURATION, [id number] 04:49:09 Test Item Value Reference Range Interpretation Comments O2 SATURATION (MEASURED) (BEAKER) 76.5 % (test code = 1455) [id number] 23:20:56 Test Item Value Reference Range Interpretation Comments PARTIAL THROMBOPLASTIN TIME 46.6 seconds 22.5-36.0 H (BEAKER) (test code = 760) BASIC METABOLIC [id number] 22:54:33 Test Item Value Reference Range Interpretation Comments SODIUM (BEAKER) 133 meq/L 136-145 L (test code = 381) POTASSIUM 3.8 meq/L 3.5-5.1 (BEAKER) (test code = 379) CHLORIDE (BEAKER) 93 meq/L 98-107 L (test code = 382) CO2 (BEAKER) 27 meq/L 22-29 (test code = 355) BLOOD UREA 28 mg/dL 7-21 H NITROGEN (BEAKER) (test code = 354) CREATININE 1.94 mg/dL 0.57-1.25 H (BEAKER) (test code = 358) GLUCOSE RANDOM 151 mg/dL 70-105 H (BEAKER) (test code = 652) CALCIUM (BEAKER) 9.8 mg/dL 8.4-10.2 (test code = 697) EGFR (BEAKER) 44 Interpretatio n of eGFR (test code = [...] not appl icable for dialysis patien ts Hand Slitter ID - [id number] 22:54:33 Test Item Value Reference Range Interpretation Comments MAGNESIUM (BEAKER) (test code = 1.9 mg/dL 1.6-2.6 627) Hand Slitter ID - ADMINPOCT-GLUCOSE [id number] 21:01:36 Test Item Value Reference Range Interpretation Comments POC-GLUCOSE METER 134 mg/dL 70-110 H : TESTED A T [facility] 6720 (BEAKER) (test code = [facility], 1538) [address]: Hand Slitter/Techni macrina ID = [id number] for Lucila Gordon POCT-GLUCOSE [id number] 16:27:54 Test Item Value Reference Range Interpretation Comments POC-GLUCOSE METER 126 mg/dL 70-110 H : TESTED A T [facility] 6720 ([facility]) (test code = [facility], 1538) [address]: Hand Slitter/Techni macrina ID = [id number] for AG UILAR, GILBERTO [id number] 13:59:01 Test Item Value Reference Range Interpretation Comments PARTIAL THROMBOPLASTIN TIME 38.5 seconds 22.5-36.0 H (AKER) (test code = 760) [id number] 12:27:15 Test Item Value Reference Range Interpretation Comments PARTIAL THROMBOPLASTIN TIME 195.7 seconds 22.5-36.0 HH (AKER) (test code = 760) POCT-GLUCOSE [id number] 11:48:44 Test Item Value Reference Range Interpretation Comments POC-GLUCOSE METER 136 mg/dL 70-110 H : TESTED A T [facility] 6720 ([facility]) (test code = [facility], 153) [address]: Hand Slitter/Techni macrina ID = [id number] for AG UILAR, GILBERTO POCT-GLUCOSE [id number] 07:37:34 Test Item Value Reference Range Interpretation Comments POC-GLUCOSE METER 120 mg/dL 70-110 H : TESTED A T [facility] 6720 ([facility]) (test code = [facility], 153) [address]: Hand Slitter/Techni macrina ID = [id number] for AG UILAR, GILBERTO RAD, CHEST, 1 VIEW, NON [id number] 07:24:00Reason for exam:->femoral IABPShould this be performed at the bedside?->Yes [facility] 1980 Sex: MFINAL REPORT CLINICAL HISTORY: femoral IABP TECHNIQUE: 1 view of the chest. COMPARISON: 06/04/2022 IMPRESSION: IABP catheter 3 to 4 cm below the aortic knob. Left PICC line and right jugular [place]-Ashli catheter unchanged. No infiltrates or effusions. The cardiomediastinal silhouette is magnified by technique. Signed: Raheel Tyson MDReport Verified Date/Time: 06/05/2022 07:24:40 [id number] 04:23:37 Test Item Value Reference Range Interpretation Comments PARTIAL THROMBOPLASTIN TIME 47.9 seconds 22.5-36.0 H (BEAKER) (test code = 760) [id number] 03:38:44 Test Item Value Reference Range Interpretation Comments PHOSPHORUS (BEAKER) (test code = 5.8 mg/dL 2.3-4.7 H 604) Hand Slitter ID Michelle [place] WHEPATIC FUNCTION [id number] 03:38:44 Test Item Value Reference Range Interpretation Comments TOTAL PROTEIN (BEAKER) (test code = 7.9 gm/dL 6.0-8.3 770) ALBUMIN (BEAKER) (test code = 1145) 3.9 g/dL 3.5-5.0 BILIRUBIN TOTAL (BEAKER) (test code 0.5 mg/dL 0.2-1.2 = 377) BILIRUBIN DIRECT (BEAKER) (test 0.2 mg/dL 0.1-0.5 code = 706) ALKALINE PHOSPHATASE (BEAKER) (test 77 U/L 40-150 code = 346) AST (SGOT) (BEAKER) (test code = 26 U/L 5-34 353) ALT (SGPT) (BEAKER) (test code = 27 U/L 6-55 347) Hand Slitter ID - CJ WBASIC METABOLIC [id number] 03:38:43 Test Item Value Reference Range Interpretation Comments SODIUM (BEAKER) 135 meq/L 136-145 L (test code = 381) POTASSIUM 4.2 meq/L 3.5-5.1 (BEAKER) (test code = 379) CHLORIDE (BEAKER) 94 meq/L 98-107 L (test code = 382) CO2 (BEAKER) 27 meq/L 22-29 (test code = 355) BLOOD UREA 18 mg/dL 7-21 NITROGEN (BEAKER) (test code = 354) CREATININE 1.65 mg/dL 0.57-1.25 H (BEAKER) (test code = 358) GLUCOSE RANDOM 128 mg/dL 70-105 H (BEAKER) (test code = 652) CALCIUM (BEAKER) 10.2 mg/dL 8.4-10.2 (test code = 697) EGFR (BEAKER) 53 Interpretatio n of eGFR [...] not appl icable for dialysis patien ts Hand Slitter ID - CJ [id number] 03:38:43 Test Item Value Reference Range Interpretation Comments MAGNESIUM (BEAKER) (test code = 2.3 mg/dL 1.6-2.6 627) Hand Slitter ID - CJ WCALCIUM, [id number] 03:30:14 Test Item Value Reference Range Interpretation Comments CALCIUM IONIZED (BEAKER) (test 1.13 mmol/L 1.12-1.27 code = 698) PH, BLOOD (BEAKER) (test code = 7.43 1810) LACTIC ACID, [id number] 03:28:34 Test Item Value Reference Range Interpretation Comments LACTATE BLOOD VENOUS (2) (BEAKER) 1.26 mmol/L 0.50-2.00 (test code = 2872) Hand Slitter ID - CJ RUSHING SATURATION, [id number] 03:27:49 Test Item Value Reference Range Interpretation Comments O2 SATURATION (MEASURED) (BEAKER) 74.1 % (test code = 1455) CBC W/PLT COUNT & AUTO [id number] 03:21:45 Test Item Value Reference Range Interpretation Comments WHITE BLOOD CELL COUNT (BEAKER) 11.9 K/ L 3.5-10.5 H (test code = 775) RED BLOOD CELL COUNT (BEAKER) 3.35 M/ L 4.63-6.08 L (test code = 761) HEMOGLOBIN (BEAKER) (test code = 9.2 GM/DL 13.7-17.5 L 410) HEMATOCRIT (BEAKER) (test code = 29.4 % 40.1-51.0 L 411) MEAN CORPUSCULAR VOLUME (BEAKER) 88 fL 79-92 (test code = 753) MEAN CORPUSCULAR HEMOGLOBIN 27.5 pg 25.7-32.2 (BEAKER) (test code = 751) MEAN CORPUSCULAR HEMOGLOBIN CONC 31.3 GM/DL 32.3-36.5 L (BEAKER) (test code = 752) RED CELL DISTRIBUTION WIDTH 16.5 % 11.6-14.4 H (BEAKER) (test code = 412) PLATELET COUNT (BEAKER) (test 157 K/CU MM 150-450 code = 756) MEAN PLATELET VOLUME (BEAKER) 9.3 fL 9.4-12.4 L (test code = 754) NUCLEATED RED BLOOD CELLS 0 /100 WBC 0-0 (BEAKER) (test code = 413) NEUTROPHILS RELATIVE PERCENT 74 % (BEAKER) (test code = 429) LYMPHOCYTES RELATIVE PERCENT 11 % (BEAKER) (test code = 430) MONOCYTES RELATIVE PERCENT 9 % (BEAKER) (test code = 431) EOSINOPHILS RELATIVE PERCENT 4 % (BEAKER) (test code = 432) BASOPHILS RELATIVE PERCENT 1 % (BEAKER) (test code = 437) NEUTROPHILS ABSOLUTE COUNT 8.80 K/ L 1.78-5.38 H (BEAKER) (test code = 670) LYMPHOCYTES ABSOLUTE COUNT 1.30 K/ L 1.32-3.57 L (BEAKER) (test code = 414) MONOCYTES ABSOLUTE COUNT (BEAKER) 1.09 K/ L 0.30-0.82 H (test code = 415) EOSINOPHILS ABSOLUTE COUNT 0.53 K/ L 0.04-0.54 (BEAKER) (test code = 416) BASOPHILS ABSOLUTE COUNT (BEAKER) 0.08 K/ L 0.01-0.08 (test code = 417) IMMATURE GRANULOCYTES-RELATIVE 1.00 % 0.00-1.00 PERCENT (BEAKER) (test code = 2801) BASIC METABOLIC [id number] 21:28:56 Test Item Value Reference Range Interpretation Comments SODIUM (BEAKER) 136 meq/L 136-145 (test code = 381) POTASSIUM 4.1 meq/L 3.5-5.1 (BEAKER) (test code = 379) CHLORIDE (BEAKER) 94 meq/L 98-107 L (test code = 382) CO2 (BEAKER) 27 meq/L 22-29 (test code = 355) BLOOD UREA 17 mg/dL 7-21 NITROGEN (BEAKER) (test code = 354) CREATININE 1.72 mg/dL 0.57-1.25 H (BEAKER) (test code = 358) GLUCOSE RANDOM 155 mg/dL 70-105 H (BEAKER) (test code = 652) CALCIUM (BEAKER) 9.9 mg/dL 8.4-10.2 (test code = 697) EGFR (BEAKER) 51 Interpretatio n of eGFR (test code = mL/min/1.73 values Stage D escription 1092) sq m Result G1 Ana l [...] not appl icable for dialysis patien ts Hand Slitter ID - [id number] 21:28:56 Test Item Value Reference Range Interpretation Comments MAGNESIUM (BEAKER) (test code = 2.0 mg/dL 1.6-2.6 627) Hand Slitter ID - mmLACTIC ACID, [id number] 21:21:25 Test Item Value Reference Range Interpretation Comments LACTATE BLOOD VENOUS 1.77 mmol/L 0.50-2.00 Specime n slightly (2) (BEAKER) (test hemolyzed code = 2872) Hand Slitter ID - mmOXYGEN SATURATION, [id number] 21:14:25 Test Item Value Reference Range Interpretation Comments O2 SATURATION (MEASURED) (BEAKER) 60.9 % (test code = 1455) OXYGEN SATURATION, [id number] 18:21:43 Test Item Value Reference Range Interpretation Comments O2 SATURATION (MEASURED) (BEAKER) 56.3 % (test code = 1455) POCT-GLUCOSE [id number] 16:44:10 Test Item Value Reference Range Interpretation Comments POC-GLUCOSE METER 127 mg/dL 70-110 H : TESTED A T [facility] 6720 (BEAKER) (test code = FILEMON Fuentes [place], 1538) [address]: Hand Slitter/Techni macrina ID = [id number] for JINNY ALMANZA BASIC METABOLIC [id number] 12:35:10 Test Item Value Reference Range Interpretation Comments SODIUM (BEAKER) 134 meq/L 136-145 L (test code = 381) POTASSIUM 4.7 meq/L 3.5-5.1 (BEAKER) (test code = 379) CHLORIDE (BEAKER) 96 meq/L 98-107 L (test code = 382) CO2 (BEAKER) 29 meq/L 22-29 (test code = 355) BLOOD UREA 12 mg/dL 7-21 NITROGEN (BEAKER) (test code = 354) CREATININE 1.42 mg/dL 0.57-1.25 H (BEAKER) (test code = 358) GLUCOSE RANDOM 121 mg/dL 70-105 H (BEAKER) (test code = 652) CALCIUM (BEAKER) 9.7 mg/dL 8.4-10.2 (test code = 697) EGFR (BEAKER) 64 Interpretatio n of eGFR (test code = [...] not appl icable for dialysis patien ts Hand Slitter ID - [id number] 12:35:10 Test Item Value Reference Range Interpretation Comments MAGNESIUM (BEAKER) (test code = 2.3 mg/dL 1.6-2.6 627) Hand Slitter ID - MARCOPOCT-GLUCOSE [id number] 11:47:56 Test Item Value Reference Range Interpretation Comments POC-GLUCOSE METER 140 mg/dL 70-110 H : TESTED A T [facility] 6720 (BED[employer] App) (test code = FILEMON Fuentes [facility], 1538) [id number]: Hand Slitter/Techni macrina ID = [id number] for JINNY ALMANZA [id number] 07:58:07 Test Item Value Reference Range Interpretation Comments PARTIAL THROMBOPLASTIN TIME 74.1 seconds 22.5-36.0 H (BEAKER) (test code = 760) POCT-GLUCOSE [id number] 07:45:11 Test Item Value Reference Range Interpretation Comments POC-GLUCOSE METER 153 mg/dL 70-110 H : TESTED A T [facility] 6720 (BEAKER) (test code = [email or web address] [facility], 1538) [id number]: Hand Slitter/Techni macrina ID = [id number] for JINNY ALMANZA PROTHROMBIN TIME/[id number] 05:40:00 Test Item Value Reference Range Interpretation Comments PROTIME (BEAKER) (test code = 15.7 seconds 11.9-14.2 H 759) INR (BEAKER) (test code = 370) 1.34 <=5.90 RECOMMENDED COUMADIN/WARFARIN INR THERAPY RANGESSTANDARD DOSE: 2.0 - 3.0 Includes: PROPHYLAXIS for venous thrombosis, systemic embolization; TREATMENT for venous thrombosis and/or pulmonary embolus.HIGH RISK: Target INR is 2.5-3.5 for patients with mechanical heart valves.[id number] 03:12:41 Test Item Value Reference Range Interpretation Comments PHOSPHORUS (BEAKER) (test code = 5.8 mg/dL 2.3-4.7 H 604) Hand Slitter ID - mmBASIC METABOLIC [id number] 03:12:40 Test Item Value Reference Range Interpretation Comments SODIUM (BEAKER) 133 meq/L 136-145 L (test code = 381) POTASSIUM 3.7 meq/L 3.5-5.1 (BEAKER) (test code = 379) CHLORIDE (BEAKER) 94 meq/L 98-107 L (test code = 382) CO2 (BEAKER) 25 meq/L 22-29 (test code = 355) BLOOD UREA 11 mg/dL 7-21 NITROGEN (BEAKER) (test code = 354) CREATININE 1.40 mg/dL 0.57-1.25 H (BEAKER) (test code = 358) GLUCOSE RANDOM 119 mg/dL 70-105 H (BEAKER) (test code = 652) CALCIUM (BEAKER) 9.4 mg/dL 8.4-10.2 (test code = 697) EGFR (BEAKER) 65 [...] not appl icable for dialysis patien ts Hand Slitter ID - [id number] 03:12:40 Test Item Value Reference Range Interpretation Comments MAGNESIUM (BEAKER) (test code = 2.6 mg/dL 1.6-2.6 627) Hand Slitter ID - mmB-TYPE NATRIURETIC FACTOR (BNP)2022-06-04 03:10:00 Test Item Value Reference Range Interpretation Comments B-TYPE NATRIURETIC PEPTIDE (BEAKER) 734 pg/mL 0-100 H (test code = 700) Hand Slitter ID - [id number] 03:07:27 Test Item Value Reference Range Interpretation Comments PARTIAL THROMBOPLASTIN TIME 132.5 seconds 22.5-36.0 H (BEAKER) (test code = 760) LACTIC ACID, [id number] 02:56:10 Test Item Value Reference Range Interpretation Comments LACTATE BLOOD VENOUS (2) (BEAKER) 1.49 mmol/L 0.50-2.00 (test code = 2872) Hand Slitter ID - mmCBC W/PLT COUNT & AUTO [id number] 02:34:32 Test Item Value Reference Range Interpretation Comments WHITE BLOOD CELL COUNT (BEAKER) 11.2 K/ L 3.5-10.5 H (test code = 775) RED BLOOD CELL COUNT (BEAKER) 3.33 M/ L 4.63-6.08 L (test code = 761) HEMOGLOBIN (BEAKER) (test code = 9.1 GM/DL 13.7-17.5 L 410) HEMATOCRIT (BEAKER) (test code = 28.4 % 40.1-51.0 L 411) MEAN CORPUSCULAR VOLUME (BEAKER) 85 fL 79-92 (test code = 753) MEAN CORPUSCULAR HEMOGLOBIN 27.3 pg 25.7-32.2 (BEAKER) (test code = 751) MEAN CORPUSCULAR HEMOGLOBIN CONC 32.0 GM/DL 32.3-36.5 L (BEAKER) (test code = 752) RED CELL DISTRIBUTION WIDTH 15.9 % 11.6-14.4 H (BEAKER) (test code = 412) PLATELET COUNT (BEAKER) (test 166 K/CU MM 150-450 code = 756) MEAN PLATELET VOLUME (BEAKER) 8.9 fL 9.4-12.4 L (test code = 754) NUCLEATED RED BLOOD CELLS 0 /100 WBC 0-0 (BEAKER) (test code = 413) NEUTROPHILS RELATIVE PERCENT 75 % (BEAKER) (test code = 429) LYMPHOCYTES RELATIVE PERCENT 12 % (BEAKER) (test code = 430) MONOCYTES RELATIVE PERCENT 9 % (BEAKER) (test code = 431) EOSINOPHILS RELATIVE PERCENT 4 % (BEAKER) (test code = 432) BASOPHILS RELATIVE PERCENT 1 % (BEAKER) (test code = 437) NEUTROPHILS ABSOLUTE COUNT 8.38 K/ L 1.78-5.38 H (BEAKER) (test code = 670) LYMPHOCYTES ABSOLUTE COUNT 1.29 K/ L 1.32-3.57 L (BEAKER) (test code = 414) MONOCYTES ABSOLUTE COUNT (BEAKER) 0.97 K/ L 0.30-0.82 H (test code = 415) EOSINOPHILS ABSOLUTE COUNT 0.42 K/ L 0.04-0.54 (BEAKER) (test code = 416) BASOPHILS ABSOLUTE COUNT (BEAKER) 0.07 K/ L 0.01-0.08 (test code = 417) IMMATURE GRANULOCYTES-RELATIVE 0.80 % 0.00-1.00 PERCENT (BEAKER) (test code = 2801) CALCIUM, [id number] 02:30:17 Test Item Value Reference Range Interpretation Comments CALCIUM IONIZED (BEAKER) (test 1.10 mmol/L 1.12-1.27 L code = 698) PH, BLOOD (BEAKER) (test code = 7.44 1810) OXYGEN SATURATION, [id number] 02:26:28 Test Item Value Reference Range Interpretation Comments O2 SATURATION (MEASURED) (BEAKER) 65.1 % (test code = 1455) RAD, CHEST, 1 VIEW, NON [id number] 00:51:00Reason for exam:->iabp positionShould this be performed at the bedside?->Yes [facility] 1980 Sex: MFINAL REPORT EXAM/TECHNIQUE: Single view frontal radiograph of the chest. INDICATION: Balloon pump. COMPARISON: 06/03/2022. FINDINGS: Devices/Objects: Balloon pump marker is near the aortopulmonary window, 3 cm below the aortic arch. Pulmonary arterial catheter terminates in the proximal interlobar artery. Left PICC is unchanged. Superior cavoatrial junction. Lungs: No focal consolidation. No pleural effusion. No pneumothorax. Heart/Mediastinum: Unchanged cardiomegaly. Osseous: No acute osseous process. No suspicious osseous lesion. Upper abdomen: Unremarkable. Impression: 1.Balloon pump marker is near the aortopulmonary window, 3 cm below the aortic arch.2.Pulmonary arterial catheter terminates in the proximal interlobar artery. Signed: Barak Evans Verified Date/Time:06/04/2022 00:51:42 RAD, CHEST, 1 VIEW, NON [id number] 00:32:00Reason for exam:->iabp adjustedShould this be performed at the bedside?->[facility] : 1980 Sex: MFINAL REPORT EXAM/TECHNIQUE: Single view frontal radiograph of the chest. INDICATION: Balloon pump. COMPARISON: 06/03/2022. FINDINGS: Devices/Objects: Balloon pump terminates near the aortopulmonary window, a 5 cm below the aortic arch. Otherwise, unchanged. Lungs: No focal consolidation. No pleural effusion. No pneumothorax. Heart/Mediastinum: Similar cardiomegaly. Osseous: No acute osseous process. No suspicious osseous lesion. Upper abdomen: Unremarkable. Impression: Balloon pump terminates near the aortopulmonary window, a 5 cm below the aortic arch. Signed: Barak Evans Verified Date/Time: 06/04/2022 00:32:15 BASIC METABOLIC [id number] 20:40:11 Test Item Value Reference Range Interpretation Comments SODIUM (BEAKER) 136 meq/L 136-145 (test code = 381) POTASSIUM 4.0 meq/L 3.5-5.1 (BEAKER) (test code = 379) CHLORIDE (BEAKER) 97 meq/L 98-107 L (test code = 382) CO2 (BEAKER) 26 meq/L 22-29 (test code = 355) BLOOD UREA 15 mg/dL 7-21 NITROGEN (BEAKER) (test code = 354) CREATININE 1.42 mg/dL 0.57-1.25 H (BEAKER) (test code = 358) GLUCOSE RANDOM 148 mg/dL 70-105 H (BEAKER) (test code = 652) CALCIUM (BEAKER) 9.6 mg/dL 8.4-10.2 (test code = 697) EGFR (BEAKER) 64 Interpretatio n of eGFR (test code = [...] not appl icable for dialysis patien ts Hand Slitter ID - [id number] 20:40:11 Test Item Value Reference Range Interpretation Comments MAGNESIUM (BEAKER) (test code = 2.0 mg/dL 1.6-2.6 627) Hand Slitter ID - [id number] 18:56:17 Test Item Value Reference Range Interpretation Comments PARTIAL THROMBOPLASTIN TIME 64.8 seconds 22.5-36.0 H (BEAKER) (test code = 760) BASIC METABOLIC [id number] 13:53:43 Test Item Value Reference Range Interpretation Comments SODIUM (BEAKER) 135 meq/L 136-145 L (test code = 381) POTASSIUM 4.1 meq/L 3.5-5.1 (BEAKER) (test code = 379) CHLORIDE (BEAKER) 95 meq/L 98-107 L (test code = 382) CO2 (BEAKER) 29 meq/L 22-29 (test code = 355) BLOOD UREA 14 mg/dL 7-21 NITROGEN (BEAKER) (test code = 354) CREATININE 1.45 mg/dL 0.57-1.25 H (BEAKER) (test code = 358) GLUCOSE RANDOM 138 mg/dL 70-105 H (BEAKER) (test code = 652) CALCIUM (BEAKER) 9.6 mg/dL 8.4-10.2 (test code = 697) EGFR (BEAKER) 62 Interpretatio n of eGFR (test code = [...] not appl icable for dialysis patien ts Hand Slitter ID - [id number] 13:53:43 Test Item Value Reference Range Interpretation Comments MAGNESIUM (BEAKER) (test code = 2.1 mg/dL 1.6-2.6 627) Hand Slitter ID - [id number] 12:09:00 Test Item Value Reference Range Interpretation Comments PARTIAL THROMBOPLASTIN TIME 85.8 seconds 22.5-36.0 H (BEAKER) (test code = 760) CALCIUM, [id number] 04:53:00 Test Item Value Reference Range Interpretation Comments CALCIUM IONIZED (BEAKER) (test 1.14 mmol/L 1.12-1.27 code = 698) PH, BLOOD (BEAKER) (test code = 7.47 1810) OXYGEN SATURATION, [id number] 04:52:41 Test Item Value Reference Range Interpretation Comments O2 SATURATION (MEASURED) (BEAKER) 57.5 % (test code = 1455) BASIC METABOLIC [id number] 04:12:05 Test Item Value Reference Range Interpretation Comments SODIUM (BEAKER) 137 meq/L 136-145 (test code = 381) POTASSIUM 4.3 meq/L 3.5-5.1 Specimen slight ly (BEAKER) (test hemolyzed code = 379) CHLORIDE (BEAKER) 98 meq/L 98-107 (test code = 382) CO2 (BEAKER) 26 meq/L 22-29 (test code = 355) BLOOD UREA 12 mg/dL 7-21 NITROGEN (BEAKER) (test code = 354) CREATININE 1.42 mg/dL 0.57-1.25 H Specimen slight ly (BEAKER) (test hemolyzed code = 358) GLUCOSE RANDOM 127 mg/dL 70-105 H (BEAKER) (test code = 652) CALCIUM (BEAKER) 9.6 mg/dL 8.4-10.2 (test code = 697) EGFR (BEAKER) 64 Interpretatio n of eGFR (test code = [...] not appl icable for dialysis patien ts Hand Slitter ID - [id number] 04:12:04 Test Item Value Reference Range Interpretation Comments MAGNESIUM (BEAKER) 2.0 mg/dL 1.6-2.6 Specimen slightly (test code = 627) hemolyzed Hand Slitter ID - [id number] 04:08:23 Test Item Value Reference Range Interpretation Comments PARTIAL THROMBOPLASTIN TIME 45.9 seconds 22.5-36.0 H (BEAKER) (test code = 760) LACTIC ACID, [id number] 03:54:52 Test Item Value Reference Range Interpretation Comments LACTATE BLOOD VENOUS 1.85 mmol/L 0.50-2.00 Specime n slightly (2) (BEAKER) (test hemolyzed code = 4621) Hand Slitter ID - MILLIOCBC W/PLT COUNT & AUTO [id number] 03:48:09 Test Item Value Reference Range Interpretation Comments WHITE BLOOD CELL COUNT (BEAKER) 10.3 K/ L 3.5-10.5 (test code = 775) RED BLOOD CELL COUNT (BEAKER) 3.15 M/ L 4.63-6.08 L (test code = 761) HEMOGLOBIN (BEAKER) (test code = 8.6 GM/DL 13.7-17.5 L 410) HEMATOCRIT (BEAKER) (test code = 27.3 % 40.1-51.0 L 411) MEAN CORPUSCULAR VOLUME (BEAKER) 87 fL 79-92 (test code = 753) MEAN CORPUSCULAR HEMOGLOBIN 27.3 pg 25.7-32.2 (BEAKER) (test code = 751) MEAN CORPUSCULAR HEMOGLOBIN CONC 31.5 GM/DL 32.3-36.5 L (BEAKER) (test code = 752) RED CELL DISTRIBUTION WIDTH 15.7 % 11.6-14.4 H (BEAKER) (test code = 412) PLATELET COUNT (BEAKER) (test 190 K/CU MM 150-450 code = 756) MEAN PLATELET VOLUME (BEAKER) 9.0 fL 9.4-12.4 L (test code = 754) NUCLEATED RED BLOOD CELLS 0 /100 WBC 0-0 (BEAKER) (test code = 413) NEUTROPHILS RELATIVE PERCENT 73 % (BEAKER) (test code = 429) LYMPHOCYTES RELATIVE PERCENT 15 % (BEAKER) (test code = 430) MONOCYTES RELATIVE PERCENT 8 % (BEAKER) (test code = 431) EOSINOPHILS RELATIVE PERCENT 3 % (BEAKER) (test code = 432) BASOPHILS RELATIVE PERCENT 1 % (BEAKER) (test code = 437) NEUTROPHILS ABSOLUTE COUNT 7.48 K/ L 1.78-5.38 H (BEAKER) (test code = 670) LYMPHOCYTES ABSOLUTE COUNT 1.54 K/ L 1.32-3.57 (BEAKER) (test code = 414) MONOCYTES ABSOLUTE COUNT (BEAKER) 0.81 K/ L 0.30-0.82 (test code = 415) EOSINOPHILS ABSOLUTE COUNT 0.28 K/ L 0.04-0.54 (BEAKER) (test code = 416) BASOPHILS ABSOLUTE COUNT (BEAKER) 0.06 K/ L 0.01-0.08 (test code = 417) IMMATURE GRANULOCYTES-RELATIVE 1.00 % 0.00-1.00 PERCENT (BEAKER) (test code = 2801) RAD, CHEST, 1 VIEW, NON [id number] 00:35:00Reason for exam:->femoral IABPShould this be performed at the bedside?->Yes [facility] 1980 Sex: MFINAL REPORT EXAM/TECHNIQUE: Single view frontal radiograph of the chest. INDICATION: Balloon pump. COMPARISON: 06/02/2022. FINDINGS: Devices/Objects: Unchanged position of balloon pump marker very near the aortic arch. Pulmonary arterial catheter terminates in the distal right main pulmonary artery. Left PICC terminates near the superior cavoatrial junction, appropriate. Lungs: No focal consolidation. No pleural effusion. No pneumothorax. Heart/Mediastinum: Similar cardiomegaly. Osseous: No acute osseous process. No suspicious osseous lesion. Upper abdomen: Unremarkable. Impression:Unchanged addition of balloon pump marker near the aortic arch. Signed: Barak Evans [facility] Verified Date/Time: 06/03/2022 00:35:29 BASIC METABOLIC [id number] 21:38:17 Test Item Value Reference Range Interpretation Comments SODIUM (BEAKER) 135 meq/L 136-145 L (test code = 381) POTASSIUM 4.3 meq/L 3.5-5.1 Specimen slight ly (BEAKER) (test hemolyzed code = 379) CHLORIDE (BEAKER) 97 meq/L 98-107 L (test code = 382) CO2 (BEAKER) 27 meq/L 22-29 (test code = 355) BLOOD UREA 11 mg/dL 7-21 NITROGEN (BEAKER) (test code = 354) CREATININE 1.32 mg/dL 0.57-1.25 H Specimen slight ly (BEAKER) (test hemolyzed code = 358) GLUCOSE RANDOM 136 mg/dL 70-105 H (BEAKER) (test code = 652) CALCIUM (BEAKER) 9.4 mg/dL 8.4-10.2 (test code = 697) EGFR (BEAKER) 70 Interpretatio n of eGFR (test code = mL/min/1.73 values Stage D escription 1092) sq m Result G1 Ana l [...] not appl icable for dialysis patien ts Hand Slitter ID - CECE [id number] 21:38:16 Test Item Value Reference Range Interpretation Comments MAGNESIUM (BEAKER) 2.3 mg/dL 1.6-2.6 Specimen slightly (test code = 627) hemolyzed Hand Slitter ID - CECE [id number] 21:16:37 Test Item Value Reference Range Interpretation Comments PARTIAL THROMBOPLASTIN TIME 71.2 seconds 22.5-36.0 H (BEAKER) (test code = 760) [id number] 19:32:45 Test Item Value Reference Range Interpretation Comments PARTIAL THROMBOPLASTIN TIME 163.8 seconds 22.5-36.0 HH (BEAKER) (test code = 760) RAD, CHEST, 1 VIEW, NON [id number] 17:57:00Reason for exam:->new femoral IABPShould this be performed at the bedside?->Yes [facility] 1980 Sex: MFINAL REPORT RAD, CHEST, 1 VIEW, NON DEPT INDICATION: new femoral IABP COMPARISON: Prior day's exam FINDINGS: Portable frontal view of the chest. IMPRESSION: Support Lines: IABP marker is at the top of the aortic arch. Advancement may be indicated, however, correlation for desired placement is suggested. PICC tip overlies the atriocaval junction. [place] tip overlies the pulmonary outflow tract. PICC tip overlies the atriocaval junction. Lungs and pleura: Lungs are clear. No significant pneumothorax. Heart and mediastinum: Stable contours. Additional findings: None. Signed: Natalee Orta [facility] Verified Date/Time: 06/02/2022 17:57:43 POCT-GLUCOSE [id number] 16:36:29 Test Item Value Reference Range Interpretation Comments POC-GLUCOSE METER 196 mg/dL 70-110 H : [facility] (test code = FILEMON Fuentes [facility], 1538) [id number]: Hand Slitter/Techni macrina ID = [id number] for JINNY ALMANZA BASIC METABOLIC [id number] 16:03:40 Test Item Value Reference Range Interpretation Comments SODIUM (BEAKER) 137 meq/L 136-145 (test code = 381) POTASSIUM 3.9 meq/L 3.5-5.1 (BEAKER) (test code = 379) CHLORIDE (BEAKER) 100 meq/L 98-107 (test code = 382) CO2 (BEAKER) 27 meq/L 22-29 (test code = 355) BLOOD UREA 11 mg/dL 7-21 NITROGEN (BEAKER) (test code = 354) CREATININE 1.35 mg/dL 0.57-1.25 H (BEAKER) (test code = 358) GLUCOSE RANDOM 121 mg/dL 70-105 H (BEAKER) (test code = 652) CALCIUM (BEAKER) 9.4 mg/dL 8.4-10.2 (test code = 697) EGFR (BEAKER) 68 Interpretati on of eGFR (test code = mL/min/1.73 values [...] not appl icable for dialysis patien ts Hand Slitter ID - CECE [id number] 16:03:40 Test Item Value Reference Range Interpretation Comments MAGNESIUM (BEAKER) (test code = 2.0 mg/dL 1.6-2.6 627) Hand Slitter ID - CECE GOXYGEN SATURATION, [id number] 15:27:49 Test Item Value Reference Range Interpretation Comments O2 SATURATION (MEASURED) (BEAKER) 69.7 % (test code = 1455) LACTIC ACID, [id number] 13:35:47 Test Item Value Reference Range Interpretation Comments LACTATE BLOOD ARTERIAL (2) 1.5 mmol/L 0.5-2.0 (BEAKER) (test code = 2874) Hand Slitter ID - CECE [id number] 13:35:29 Test Item Value Reference Range Interpretation Comments PARTIAL THROMBOPLASTIN TIME 68.2 seconds 22.5-36.0 H (BEAKER) (test code = 760) OXYGEN SATURATION, [id number] 13:28:09 Test Item Value Reference Range Interpretation Comments O2 SATURATION (MEASURED) (BEAKER) 72.3 % (test code = 1455) HEMOGLOBIN AND [id number] 13:26:41 Test Item Value Reference Range Interpretation Comments HEMOGLOBIN (BEAKER) (test code = 8.0 GM/DL 13.7-17.5 L 410) HEMATOCRIT (BEAKER) (test code = 25.4 % 40.1-51.0 L 411) Hand Slitter ID - 6000POCT-GLUCOSE [id number] 12:22:04 Test Item Value Reference Range Interpretation Comments POC-GLUCOSE METER 168 mg/dL 70-110 H : TESTED A T [facility] 6720 ([facility]) (test code = SALOMEDC Alfredo [facility], 1538) [address]: Hand Slitter/Techni macrina ID = [id number] for JINNY ALMANZA LACTIC ACID, [id number] 09:21:13 Test Item Value Reference Range Interpretation Comments LACTATE BLOOD VENOUS (2) ([facility]) 1.81 mmol/L 0.50-2.00 (test code = 2872) Hand Slitter ID - CECE GPOCT-GLUCOSE [id number] 07:45:22 Test Item Value Reference Range Interpretation Comments POC-GLUCOSE METER 111 mg/dL 70-110 H : TESTED A T [facility] 6720 ([facility]) (test code = [facility] Alfredo [facility], 1538) [id number]: Hand Slitter/Techni macrina ID = [id number] for Debbie Saha RAD, CHEST, 1 VIEW, NON [id number] 07:35:00Reason for exam:->IABPShould this be performed at the bedside?->Yes [facility] : 1980 Sex: MFINAL REPORT RAD, CHEST, 1 VIEW, NON DEPT INDICATION: IABP COMPARISON: Prior day's exam FINDINGS: Portable frontal view of the chest. IMPRESSION: Support Lines: Axillary approach IABP with marker 0.8 cm below the aortic arch. Left-sided PICC tip overlying the atriocaval junction Lungs and pleura: Lungs are clear No significant pneumothorax. Heart and mediastinum: Stable contours. Stable surgical changes. Additional findings: None. Signed: Natalee Ortaepelan Verified Date/Time: 06/02/2022 07:35:06 [id number] 05:01:08 Test Item Value Reference Range Interpretation Comments MAGNESIUM (BEAKER) (test code = 2.3 mg/dL 1.6-2.6 627) Hand Slitter ID - JSBASIC METABOLIC [id number] 05:01:08 Test Item Value Reference Range Interpretation Comments SODIUM (BEAKER) 134 meq/L 136-145 L (test code = 381) POTASSIUM 4.3 meq/L 3.5-5.1 (BEAKER) (test code = 379) CHLORIDE (BEAKER) 97 meq/L 98-107 L (test code = 382) CO2 (BEAKER) 26 meq/L 22-29 (test code = 355) BLOOD UREA 12 mg/dL 7-21 NITROGEN (BEAKER) (test code = 354) CREATININE 1.49 mg/dL 0.57-1.25 H (BEAKER) (test code = 358) GLUCOSE RANDOM 111 mg/dL 70-105 H (BEAKER) (test code = 652) CALCIUM (BEAKER) 9.0 mg/dL 8.4-10.2 (test code = 697) EGFR (BEAKER) 60 Interpretatio n of eGFR [...] not appl icable for dialysis patien ts Hand Slitter ID - [id number] 04:41:54 Test Item Value Reference Range Interpretation Comments PARTIAL THROMBOPLASTIN TIME 74.0 seconds 22.5-36.0 H (BEAKER) (test code = 760) CBC W/PLT COUNT & AUTO [id number] 04:35:04 Test Item Value Reference Range Interpretation Comments WHITE BLOOD CELL COUNT (BEAKER) 8.9 K/ L 3.5-10.5 (test code = 775) RED BLOOD CELL COUNT (BEAKER) 2.97 M/ L 4.63-6.08 L (test code = 761) HEMOGLOBIN (BEAKER) (test code = 8.1 GM/DL 13.7-17.5 L 410) HEMATOCRIT (BEAKER) (test code = 26.3 % 40.1-51.0 L 411) MEAN CORPUSCULAR VOLUME (BEAKER) 89 fL 79-92 (test code = 753) MEAN CORPUSCULAR HEMOGLOBIN 27.3 pg 25.7-32.2 (BEAKER) (test code = 751) MEAN CORPUSCULAR HEMOGLOBIN CONC 30.8 GM/DL 32.3-36.5 L (BEAKER) (test code = 752) RED CELL DISTRIBUTION WIDTH 15.6 % 11.6-14.4 H (BEAKER) (test code = 412) PLATELET COUNT (BEAKER) (test 189 K/CU MM 150-450 code = 756) MEAN PLATELET VOLUME (BEAKER) 9.3 fL 9.4-12.4 L (test code = 754) NUCLEATED RED BLOOD CELLS 0 /100 WBC 0-0 (BEAKER) (test code = 413) NEUTROPHILS RELATIVE PERCENT 71 % (BEAKER) (test code = 429) LYMPHOCYTES RELATIVE PERCENT 15 % (BEAKER) (test code = 430) MONOCYTES RELATIVE PERCENT 8 % (BEAKER) (test code = 431) EOSINOPHILS RELATIVE PERCENT 4 % (BEAKER) (test code = 432) BASOPHILS RELATIVE PERCENT 1 % (BEAKER) (test code = 437) NEUTROPHILS ABSOLUTE COUNT 6.36 K/ L 1.78-5.38 H (BEAKER) (test code = 670) LYMPHOCYTES ABSOLUTE COUNT 1.34 K/ L 1.32-3.57 (BEAKER) (test code = 414) MONOCYTES ABSOLUTE COUNT (BEAKER) 0.69 K/ L 0.30-0.82 (test code = 415) EOSINOPHILS ABSOLUTE COUNT 0.36 K/ L 0.04-0.54 (BEAKER) (test code = 416) BASOPHILS ABSOLUTE COUNT (BEAKER) 0.08 K/ L 0.01-0.08 (test code = 417) IMMATURE GRANULOCYTES-RELATIVE 0.80 % 0.00-1.00 PERCENT (BEAKER) (test code = 2801) [id number] 22:58:33 Test Item Value Reference Range Interpretation Comments PARTIAL THROMBOPLASTIN TIME 88.6 seconds 22.5-36.0 H (BEAKER) (test code = 760) [id number] 21:04:21 Test Item Value Reference Range Interpretation Comments MAGNESIUM (BEAKER) 2.0 mg/dL 1.6-2.6 Specimen slightly (test code = 627) hemolyzed Hand Slitter ID - JUDYBASIC METABOLIC [id number] 21:04:21 Test Item Value Reference Range Interpretation Comments SODIUM (BEAKER) 134 meq/L 136-145 L (test code = 381) POTASSIUM 4.4 meq/L 3.5-5.1 Specimen slight ly (BEAKER) (test hemolyzed code = 379) CHLORIDE (BEAKER) 97 meq/L 98-107 L (test code = 382) CO2 (BEAKER) 26 meq/L 22-29 (test code = 355) BLOOD UREA 11 mg/dL 7-21 NITROGEN (BEAKER) (test code = 354) CREATININE 1.41 mg/dL 0.57-1.25 H Specimen slight ly (BEAKER) (test hemolyzed code = 358) GLUCOSE RANDOM 125 mg/dL 70-105 H (BEAKER) (test code = 652) CALCIUM (BEAKER) 9.3 mg/dL 8.4-10.2 (test code = 697) EGFR (BEAKER) 65 Interpretatio n of eGFR (test code = mL/min/1.73 values Stage De scription 1092) sq m Result G1 Ana l or high >=90 G2 Mildly decreased 60-89 G3a Mildl y to moderately 45-5 9 G3b Moderately to s everely 30-44 G4 Severl y decreased 15-29 G5 Kidney failure <15Reported eGF R is based on the CKD-EPI 1 equation that d oes not use a race coefficientEsti mated GFR is not as accur ate as Creatinine Cathy melodie in predicting glom erular filtration rate . Estimated GFR is not appl icable for dialysis patien ts Hand Slitter ID - [id number] 21:01:05 Test Item Value Reference Range Interpretation Comments PARTIAL THROMBOPLASTIN TIME 186.1 seconds 22.5-36.0 HH (BEAKER) (test code = 760) POCT-GLUCOSE [id number] 16:30:10 Test Item Value Reference Range Interpretation Comments POC-GLUCOSE METER 122 mg/dL 70-110 H : TESTED A T [facility] 6720 (BEAKER) (test code = [place], 1538) [address]: Hand Slitter/Techni macrina ID = [id number] for JINNY ALMANZA [id number] 15:26:41 Test Item Value Reference Range Interpretation Comments HAPTOGLOBIN (BEAKER) (test code = 168 mg/dL 14-258 366) Hand Slitter ID - [id number] 14:26:13 Test Item Value Reference Range Interpretation Comments PARTIAL THROMBOPLASTIN TIME 54.6 seconds 22.5-36.0 H (BEAKER) (test code = 760) BASIC METABOLIC [id number] 13:57:05 Test Item Value Reference Range Interpretation Comments SODIUM (BEAKER) 134 meq/L 136-145 L (test code = 381) POTASSIUM 4.1 meq/L 3.5-5.1 (BEAKER) (test code = 379) CHLORIDE (BEAKER) 97 meq/L 98-107 L (test code = 382) CO2 (BEAKER) 28 meq/L 22-29 (test code = 355) BLOOD UREA 13 mg/dL 7-21 NITROGEN (BEAKER) (test code = 354) CREATININE 1.30 mg/dL 0.57-1.25 H (BEAKER) (test code = 358) GLUCOSE RANDOM 120 mg/dL 70-105 H (BEAKER) (test code = 652) CALCIUM (BEAKER) 9.1 mg/dL 8.4-10.2 (test code = 697) EGFR (BEAKER) 71 Interpretatio n of eGFR (test code = [...] not appl icable for dialysis patien ts Hand Slitter ID - BOBYPOCT-GLUCOSE [id number] 11:09:41 Test Item Value Reference Range Interpretation Comments POC-GLUCOSE METER 101 mg/dL 70-110 : TESTED A T [facility] 67[address] (EMMAAKER) (test code = [place], 1538) [id number]: Hand Slitter/Techni macrina ID = [id number] for JINNY ALMANZA LACTATE DEHYDROGENASE (LDH)2022-06-01 10:33:02 Test Item Value Reference Range Interpretation Comments LACTATE DEHYDROGENASE (EMMAAKER) (test 320 U/L 125-220 H code = 635) Hand Slitter ID - CHEMA, CHEST, 1 VIEW, NON [id number] 08:13:00Reason for exam:->IABPShould this be performed at the bedside?->Yes [facility] 1980 Sex: MFINAL REPORT RAD, CHEST, 1 VIEW, NON DEPT INDICATION: IABP COMPARISON: Prior day's exam FINDINGS: Portable frontal view of the chest. IMPRESSION: Support Lines: Axillary approach IABP with marker 2.8 cm below the aortic arch. Left-sided PICC tip overlying the atriocaval junction Lungs and pleura: Lungs are clear No significant pneumothorax. Heart and mediastinum: Stable contours. Additional findings: None. Signed: Natalee Ortaeport Verified Date/Time: 06/01/2022 08:13:11 POCT-GLUCOSE [id number] 08:06:48 Test Item Value Reference Range Interpretation Comments POC-GLUCOSE METER 101 mg/dL 70-110 : TESTED A T [facility] 67[address] (BEAKER) (test code = [place], 1538) [id number]: Hand Slitter/Techni macrina ID = [id number] for JINNY ALMANZA [id number] 06:55:56 Test Item Value Reference Range Interpretation Comments PARTIAL THROMBOPLASTIN TIME 35.0 seconds 22.5-36.0 (BEAKER) (test code = 760) [id number] 04:47:27 Test Item Value Reference Range Interpretation Comments PARTIAL THROMBOPLASTIN TIME > seconds 22.5-36.0 HH (BEAKER) (test code = 760) BASIC METABOLIC [id number] 02:12:25 Test Item Value Reference Range Interpretation Comments SODIUM (BEAKER) 129 meq/L 136-145 L (test code = 381) POTASSIUM 4.0 meq/L 3.5-5.1 (BEAKER) (test code = 379) CHLORIDE (BEAKER) 91 meq/L 98-107 L (test code = 382) CO2 (BEAKER) 29 meq/L 22-29 (test code = 355) BLOOD UREA 15 mg/dL 7-21 NITROGEN (BEAKER) (test code = 354) CREATININE 1.57 mg/dL 0.57-1.25 H (BEAKER) (test code = 358) GLUCOSE RANDOM 212 mg/dL 70-105 H (BEAKER) (test code = 652) CALCIUM (BEAKER) 8.9 mg/dL 8.4-10.2 (test code = 697) EGFR (BEAKER) 57 Interpretatio n of eGFR (test code = [...] not appl icable for dialysis patien ts Hand Slitter ID - [id number] 02:12:25 Test Item Value Reference Range Interpretation Comments MAGNESIUM (BEAKER) (test code = 1.9 mg/dL 1.6-2.6 627) Hand Slitter ID - [id number] 02:12:14 Test Item Value Reference Range Interpretation Comments PARTIAL THROMBOPLASTIN TIME 125.6 seconds 22.5-36.0 H (BEAKER) (test code = 760) CBC W/PLT COUNT & AUTO [id number] 01:56:54 Test Item Value Reference Range Interpretation Comments WHITE BLOOD CELL COUNT (BEAKER) 10.7 K/ L 3.5-10.5 H (test code = 775) RED BLOOD CELL COUNT (BEAKER) 2.95 M/ L 4.63-6.08 L (test code = 761) HEMOGLOBIN (BEAKER) (test code = 8.0 GM/DL 13.7-17.5 L 410) HEMATOCRIT (BEAKER) (test code = 25.8 % 40.1-51.0 L 411) MEAN CORPUSCULAR VOLUME (BEAKER) 88 fL 79-92 (test code = 753) MEAN CORPUSCULAR HEMOGLOBIN 27.1 pg 25.7-32.2 (BEAKER) (test code = 751) MEAN CORPUSCULAR HEMOGLOBIN CONC 31.0 GM/DL 32.3-36.5 L (BEAKER) (test code = 752) RED CELL DISTRIBUTION WIDTH 15.4 % 11.6-14.4 H (BEAKER) (test code = 412) PLATELET COUNT (BEAKER) (test 176 K/CU MM 150-450 code = 756) MEAN PLATELET VOLUME (BEAKER) 9.1 fL 9.4-12.4 L (test code = 754) NUCLEATED RED BLOOD CELLS 0 /100 WBC 0-0 (BEAKER) (test code = 413) NEUTROPHILS RELATIVE PERCENT 71 % (BEAKER) (test code = 429) LYMPHOCYTES RELATIVE PERCENT 15 % (BEAKER) (test code = 430) MONOCYTES RELATIVE PERCENT 8 % (BEAKER) (test code = 431) EOSINOPHILS RELATIVE PERCENT 4 % (BEAKER) (test code = 432) BASOPHILS RELATIVE PERCENT 1 % (BEAKER) (test code = 437) NEUTROPHILS ABSOLUTE COUNT 7.53 K/ L 1.78-5.38 H (BEAKER) (test code = 670) LYMPHOCYTES ABSOLUTE COUNT 1.62 K/ L 1.32-3.57 (BEAKER) (test code = 414) MONOCYTES ABSOLUTE COUNT (BEAKER) 0.87 K/ L 0.30-0.82 H (test code = 415) EOSINOPHILS ABSOLUTE COUNT 0.45 K/ L 0.04-0.54 (BEAKER) (test code = 416) BASOPHILS ABSOLUTE COUNT (BEAKER) 0.09 K/ L 0.01-0.08 H (test code = 417) IMMATURE GRANULOCYTES-RELATIVE 0.80 % 0.00-1.00 PERCENT (BEAKER) (test code = 2801) [id number] 22:12:07 Test Item Value Reference Range Interpretation Comments PARTIAL THROMBOPLASTIN TIME > seconds 22.5-36.0 HH (BEAKER) (test code = 760) RAD, CHEST, 1 VIEW, NON [id number] 20:46:00Reason for exam:->Axillary IABP positionShould this be performed at the bedside?->Yes [facility] : 1980 Sex: MFINAL REPORT EXAMINATION: RAD, CHEST, 1 VIEW, NON DEPT. INDICATION: 41-year-old male, evaluate IABP. COMPARISON: Chest radiograph dated 05/31/2022. FINDINGS/ IMPRESSION:A left axillary sheath is noted with tip overlying the upper aortic knob with a presumed IABP marker approximately 7.5cm below the aortic knob. Mild cardiomegaly. No evidence of consolidation, pleural effusion, or pneumothorax. Signed: Sera Alvarez Verified Date/Time: 05/31/2022 20:46:55 Electronically signedby: SERA ALVAREZ MD on 05/31/2022 08:46 PM RAD, CHEST, 1 VIEW, NON [id number] 19:58:00Reason for exam:->eval balloon placementShould this be performed at the bedside?->Yes [facility] : 1980 Sex: MFINAL REPORT EXAMINATION: RAD, CHEST, 1 VIEW, NON DEPT. INDICATION: 41-year-old male, evaluate IABP placement. COMPARISON: Chest radiograph dated 05/31/2022 at 7:06 PM. FINDINGS/ IMPRESSION:An IABP is noted with marker approximately 0.5 cm below the inferior margin of the aortic knob. Other findings remain unchanged. Signed: Sera Alvarez Verified Date/Time: 05/31/2022 19:58:16 POCT-GLUCOSE [id number] 16:59:11 Test Item Value Reference Range Interpretation Comments POC-GLUCOSE METER 97 mg/dL 70-110 : TESTED A T [facility] 6720 (BEAKER) (test code = [place], 1538) [address]: Hand Slitter/Techni macrina ID = [id number] for ACCO S, ALANA [id number] 13:07:53 Test Item Value Reference Range Interpretation Comments PARTIAL THROMBOPLASTIN TIME 105.3 seconds 22.5-36.0 H (BEAKER) (test code = 760) POCT-GLUCOSE [id number] 11:55:33 Test Item Value Reference Range Interpretation Comments POC-GLUCOSE METER 94 mg/dL 70-110 : TESTED A T [facility] 6720 ([facility]) (test code = [facility], 1538) [address]: Hand Slitter/Techni macrina ID = [id number] for Donna Mitchell POCT-GLUCOSE [id number] 07:46:31 Test Item Value Reference Range Interpretation Comments POC-GLUCOSE METER 114 mg/dL 70-110 H : TESTED A T [facility] 6720 ([facility]) (test code = [facility], 1538) [address]: Hand Slitter/Techni macrina ID = [id number] for Kaye Lee RAD, CHEST, 1 VIEW, NON [id number] 07:05:00Reason for exam:->IABPShould this be performed at the bedside?->Yes [facility] 1980 Sex: MFINAL REPORT CLINICAL HISTORY: IABP TECHNIQUE: 1 view of the chest. COMPARISON: 05/30/2022 IMPRESSION: IABP catheter tip and left PICC line unchanged. No infiltrates or effusions. Cardiomediastinal silhouette unchanged. Signed: Raheel Tyson Verified Date/Time: 05/31/2022 07:05:03 APTT 2022-05-31 06:54:22 Test Item Value Reference Range Interpretation Comments PARTIAL THROMBOPLASTIN TIME 85.1 seconds 22.5-36.0 H (BEAKER) (test code = 760) [id number] 05:07:23 Test Item Value Reference Range Interpretation Comments PARTIAL THROMBOPLASTIN TIME > seconds 22.5-36.0 HH (BEAKER) (test code = 760) BASIC METABOLIC [id number] 03:41:25 Test Item Value Reference Range Interpretation Comments SODIUM (BEAKER) 133 meq/L 136-145 L (test code = 381) POTASSIUM 4.2 meq/L 3.5-5.1 (BEAKER) (test code = 379) CHLORIDE (BEAKER) 92 meq/L 98-107 L (test code = 382) CO2 (BEAKER) 29 meq/L 22-29 (test code = 355) BLOOD UREA 20 mg/dL 7-21 NITROGEN (BEAKER) (test code = 354) CREATININE 1.58 mg/dL 0.57-1.25 H (BEAKER) (test code = 358) GLUCOSE RANDOM 176 mg/dL 70-105 H (BEAKER) (test code = 652) CALCIUM (BEAKER) 9.5 mg/dL 8.4-10.2 (test code = 697) EGFR (BEAKER) 56 Interpretatio n of eGFR [...] not appl icable for dialysis patien ts Hand Slitter ID - [id number] 03:41:25 Test Item Value Reference Range Interpretation Comments MAGNESIUM (BEAKER) (test code = 2.1 mg/dL 1.6-2.6 627) Hand Slitter ID - marioCBC (HEMOGRAM ONLY)2022-05-31 03:24:13 Test Item Value Reference Range Interpretation Comments WHITE BLOOD CELL COUNT (BEAKER) 9.5 K/ L 3.5-10.5 (test code = 775) RED BLOOD CELL COUNT (BEAKER) 3.01 M/ L 4.63-6.08 L (test code = 761) HEMOGLOBIN (BEAKER) (test code = 8.3 GM/DL 13.7-17.5 L 410) HEMATOCRIT (BEAKER) (test code = 26.2 % 40.1-51.0 L 411) MEAN CORPUSCULAR VOLUME (BEAKER) 87 fL 79-92 (test code = 753) MEAN CORPUSCULAR HEMOGLOBIN 27.6 pg 25.7-32.2 (BEAKER) (test code = 751) MEAN CORPUSCULAR HEMOGLOBIN CONC 31.7 GM/DL 32.3-36.5 L (BEAKER) (test code = 752) RED CELL DISTRIBUTION WIDTH 15.0 % 11.6-14.4 H (BEAKER) (test code = 412) PLATELET COUNT (BEAKER) (test 205 K/CU MM 150-450 code = 756) MEAN PLATELET VOLUME (BEAKER) 9.3 fL 9.4-12.4 L (test code = 754) NUCLEATED RED BLOOD CELLS 0 /100 WBC 0-0 (BEAKER) (test code = 413) POCT-GLUCOSE [id number] 21:30:31 Test Item Value Reference Range Interpretation Comments POC-GLUCOSE METER 154 mg/dL 70-110 H : Notified RN/MD: ([facility]) (test code = TESTED AT [place] [address] 1538) [facility], [address]: Hand Slitter/Techni macrina ID = [id number] for LUC ZAMORA [id number] 18:53:55 Test Item Value Reference Range Interpretation Comments PARTIAL THROMBOPLASTIN TIME 50.9 seconds 22.5-36.0 H ([facility]) (test code = 760) POCT-GLUCOSE [id number] 16:27:56 Test Item Value Reference Range Interpretation Comments POC-GLUCOSE METER 95 mg/dL 70-110 : TESTED A T [facility] 67 ([facility]) (test code = [address] Fuentes [facility], 153) [address]: Hand Slitter/Techni macrina ID = [id number] for GILBERTO EGAN DRUG SCREEN, URINE, [id number] 14:28:39 Test Item Value Reference Range Interpretation Comments SCAN RESULT (test see scanned report See scanned report. code = [id number]) see scanned reportPOCT-GLUCOSE [id number] 11:40:06 Test Item Value Reference Range Interpretation Comments POC-GLUCOSE METER 110 mg/dL 70-110 : TESTED A T [facility] 6720 (BEAKER) (test code = [place], 1538) [address]: Hand Slitter/Techni macrina ID = [id number] for GILBERTO HUMPHREYS RAD, CHEST, 1 VIEW, NON [id number] 10:37:00Reason for exam:->s/p advancement of axillary IABPShould this be performed at the bedside?->Yes [facility] 1980 Sex: MFINAL REPORT CLINICAL HISTORY: s/p advancement of axillary IABP TECHNIQUE: 1 view ofthe chest. COMPARISON: 05/29/2022 IMPRESSION: The IABP catheter tip and PICC line are unchanged. Patchy right infrahilar lung opacity is seen. The lung padgett otherwise well-aerated without significant pleural fluid. The cardiomediastinal silhouette is magnified by technique. Signed: Raheel Tyson Verified Date/Time: 05/30/2022 10:37:48 Reading Location: [address] Reading Room [id number] 09:50:49 Test Item Value Reference Range Interpretation Comments PARTIAL THROMBOPLASTIN TIME 53.9 seconds 22.5-36.0 H (BEAKER) (test code = 760) [id number] 08:35:52 Test Item Value Reference Range Interpretation Comments FERRITIN (BEAKER) (test code = 89.90 ng/mL 5.00-275.00 361) VITAMIN [id number] 08:35:39 Test Item Value Reference Range Interpretation Comments VITAMIN B12 (BEAKER) (test code = 869 pg/mL 213-816 H 774) POCT-GLUCOSE [id number] 07:40:01 Test Item Value Reference Range Interpretation Comments POC-GLUCOSE METER 111 mg/dL 70-110 H : TESTED A T [facility] 6720 (BEAKER) (test code = [place], 1538) [address]: Hand Slitter/Techni macrina ID = [id number] for AG UILAR GILBERTO RAD, CHEST, 1 VIEW, NON [id number] 07:26:00Reason for exam:->IABPShould this be performed at the bedside?->Yes [facility] 1980 Sex: MFINAL REPORT CLINICAL HISTORY: IABP TECHNIQUE: 1 view of the chest. COMPARISON: 05/29/2022 IMPRESSION: IABP catheter tip and left PICC line unchanged. No infiltrates or effusions. No significant cardiomegaly. Signed: Raheel Tysonort Verified Date/Time: 05/30/2022 07:26:00 [id number] 04:20:42 Test Item Value Reference Range Interpretation Comments MAGNESIUM (BEAKER) (test code = 2.1 mg/dL 1.6-2.6 627) Hand Slitter ID - ADMINBASIC METABOLIC [id number] 04:20:41 Test Item Value Reference Range Interpretation Comments SODIUM (BEAKER) 134 meq/L 136-145 L (test code = 381) POTASSIUM 3.6 meq/L 3.5-5.1 (BEAKER) (test code = 379) CHLORIDE (BEAKER) 94 meq/L 98-107 L (test code = 382) CO2 (BEAKER) 29 meq/L 22-29 (test code = 355) BLOOD UREA 19 mg/dL 7-21 NITROGEN (BEAKER) (test code = 354) CREATININE 1.39 mg/dL 0.57-1.25 H (BEAKER) (test code = 358) GLUCOSE RANDOM 133 mg/dL 70-105 H (BEAKER) (test code = 652) CALCIUM (BEAKER) 8.9 mg/dL 8.4-10.2 (test code = 697) EGFR (BEAKER) 66 Interpretatio n of eGFR (test code = [...] not appl icable for dialysis patien ts Hand Slitter ID - [id number] 04:16:18 Test Item Value Reference Range Interpretation Comments HAPTOGLOBIN (BEAKER) (test code = 138 mg/dL 14-258 366) Hand Slitter ID - ADMINIRON, TIBC, % SAT. (WITHOUT FERRITIN)2022-05-30 04:16:18 Test Item Value Reference Range Interpretation Comments IRON (BEAKER) (test code = 547) 50.0 ug/dL 40.0-160.0 TOTAL IRON BINDING CAPACITY 238 ug/dL 250-450 L (BEAKER) (test code = 769) IRON % SATURATION (2) (BEAKER) 21 % 20-55 (test code = 2590) Hand Slitter ID - [id number] 01:09:12 Test Item Value Reference Range Interpretation Comments PARTIAL THROMBOPLASTIN TIME 103.0 seconds 22.5-36.0 H (BEAKER) (test code = 760) CBC W/PLT COUNT & AUTO [id number] 00:41:07 Test Item Value Reference Range Interpretation Comments WHITE BLOOD CELL COUNT (BEAKER) 8.8 K/ L 3.5-10.5 (test code = 775) RED BLOOD CELL COUNT (BEAKER) 3.26 M/ L 4.63-6.08 L (test code = 761) HEMOGLOBIN (BEAKER) (test code = 8.9 GM/DL 13.7-17.5 L 410) HEMATOCRIT (BEAKER) (test code = 27.9 % 40.1-51.0 L 411) MEAN CORPUSCULAR VOLUME (BEAKER) 86 fL 79-92 (test code = 753) MEAN CORPUSCULAR HEMOGLOBIN 27.3 pg 25.7-32.2 (BEAKER) (test code = 751) MEAN CORPUSCULAR HEMOGLOBIN CONC 31.9 GM/DL 32.3-36.5 L (BEAKER) (test code = 752) RED CELL DISTRIBUTION WIDTH 14.7 % 11.6-14.4 H (BEAKER) (test code = 412) PLATELET COUNT (BEAKER) (test 211 K/CU MM 150-450 code = 756) MEAN PLATELET VOLUME (BEAKER) 9.2 fL 9.4-12.4 L (test code = 754) NUCLEATED RED BLOOD CELLS 0 /100 WBC 0-0 (BEAKER) (test code = 413) NEUTROPHILS RELATIVE PERCENT 63 % (BEAKER) (test code = 429) LYMPHOCYTES RELATIVE PERCENT 20 % (BEAKER) (test code = 430) MONOCYTES RELATIVE PERCENT 10 % (BEAKER) (test code = 431) EOSINOPHILS RELATIVE PERCENT 5 % (BEAKER) (test code = 432) BASOPHILS RELATIVE PERCENT 1 % (BEAKER) (test code = 437) NEUTROPHILS ABSOLUTE COUNT 5.55 K/ L 1.78-5.38 H (BEAKER) (test code = 670) LYMPHOCYTES ABSOLUTE COUNT 1.73 K/ L 1.32-3.57 (BEAKER) (test code = 414) MONOCYTES ABSOLUTE COUNT (BEAKER) 0.91 K/ L 0.30-0.82 H (test code = 415) EOSINOPHILS ABSOLUTE COUNT 0.43 K/ L 0.04-0.54 (BEAKER) (test code = 416) BASOPHILS ABSOLUTE COUNT (BEAKER) 0.07 K/ L 0.01-0.08 (test code = 417) IMMATURE GRANULOCYTES-RELATIVE 0.90 % 0.00-1.00 PERCENT (BEAKER) (test code = 2801) RAD, CHEST, 1 VIEW, NON [id number] 18:25:00Reason for exam:->axillary iabpShould this be performed at the bedside?->Yes [facility] 1980 Sex: MFINAL REPORT EXAMINATION: RAD, CHEST, 1 VIEW, NON DEPT. INDICATION: 41-year-old malewith axillary IABP. COMPARISON: Chest radiograph dated 05/29/2022. FINDINGS/ IMPRESSION:A left arm sheath is noted with presumed IABP marker overlying the mid aortic knob. A left arm PICC is noted in stable position. Mild cardiomegaly. No evidence of consolidation, pleural effusion, or pneumothorax. Signed: Sera Alvarezconnecticut hospice Verified Date/Time: 05/29/2022 18:25:47 [id number] 18:21:31 Test Item Value Reference Range Interpretation Comments PARTIAL THROMBOPLASTIN TIME 88.3 seconds 22.5-36.0 H (BEAKER) (test code = 760) POCT-GLUCOSE [id number] 12:02:43 Test Item Value Reference Range Interpretation Comments POC-GLUCOSE METER 114 mg/dL 70-110 H : TESTED A T [facility] 6720 (BEVICKIE) (test code = [facility], 1538) [address]: Hand Slitter/Techni macrina ID = [id number] for ANDERSON OSWALD LACTATE DEHYDROGENASE (LDH)2022-05-29 11:51:46 Test Item Value Reference Range Interpretation Comments LACTATE DEHYDROGENASE (EMMAAKER) (test 402 U/L 125-220 H code = 635) Hand Slitter ID - CECE [id number] 07:44:17 Test Item Value Reference Range Interpretation Comments PARTIAL THROMBOPLASTIN TIME 91.8 seconds 22.5-36.0 H (BEAKER) (test code = 760) POCT-GLUCOSE [id number] 07:36:12 Test Item Value Reference Range Interpretation Comments POC-GLUCOSE METER 155 mg/dL 70-110 H : [facility] (test code = [facility], 1538) [address]: Hand Slitter/Techni macrina ID = [id number] for Karrie Horner RAD, CHEST, 1 VIEW, NON [id number] 06:25:00Reason for exam:->IABPShould this be performed at the bedside?->Yes [facility] : 1980 Sex: MFINAL REPORT CLINICAL HISTORY: IABP TECHNIQUE: 1 view of the chest. COMPARISON: 05/28/2022 IMPRESSION: The tip of the IABP catheter projects at the origin of the left subclavian artery, just above the aortic arch. The left PICC line remains near the cavoatrial junction. No infiltrates or effusions. No cardiomegaly. Signed: Raheel Tyson MDReport Verified Date/Time: 05/29/2022 06:25:42 REHENSIVE METABOLIC [id number] 04:40:48 Test Item Value Reference Range Interpretation Comments TOTAL PROTEIN 6.5 gm/dL 6.0-8.3 (BEAKER) (test code = 770) ALBUMIN (BEAKER) 3.3 g/dL 3.5-5.0 L (test code = 1145) ALKALINE 60 U/L 40-150 PHOSPHATASE (BEAKER) (test code = 346) BILIRUBIN TOTAL 0.4 mg/dL 0.2-1.2 (BEAKER) (test code = 377) SODIUM (BEAKER) 132 meq/L 136-145 L (test code = 381) POTASSIUM (BEAKER) 4.0 meq/L 3.5-5.1 (test code = 379) CHLORIDE (BEAKER) 95 meq/L 98-107 L (test code = 382) CO2 (BEAKER) (test 25 meq/L 22-29 code = 355) BLOOD UREA 22 mg/dL 7-21 H NITROGEN (BEAKER) (test code = 354) CREATININE 1.30 mg/dL 0.57-1.25 H (BEAKER) (test code = 358) GLUCOSE RANDOM 141 mg/dL 70-105 H (BEAKER) (test code = 652) CALCIUM (BEAKER) 8.6 mg/dL 8.4-10.2 (test code = 697) AST (SGOT) 16 U/L 5-34 (BEAKER) (test code = 353) ALT (SGPT) 33 U/L 6-55 (BEAKER) (test code = 347) EGFR (BEAKER) 71 Interpretatio n of eGFR (test code = [...] not appl icable for dialysis patien ts Hand Slitter ID - [id number] 04:40:48 Test Item Value Reference Range Interpretation Comments MAGNESIUM (BEAKER) (test code = 2.1 mg/dL 1.6-2.6 627) Hand Slitter ID - DBLACTIC ACID, [id number] 04:07:51 Test Item Value Reference Range Interpretation Comments LACTATE BLOOD VENOUS (2) (BEAKER) 1.25 mmol/L 0.50-2.00 (test code = 2872) Hand Slitter ID - DBCBC W/PLT COUNT & AUTO [id number] 04:07:51 Test Item Value Reference Range Interpretation Comments WHITE BLOOD CELL COUNT (BEAKER) 8.5 K/ L 3.5-10.5 (test code = 775) RED BLOOD CELL COUNT (BEAKER) 3.20 M/ L 4.63-6.08 L (test code = 761) HEMOGLOBIN (BEAKER) (test code = 8.6 GM/DL 13.7-17.5 L 410) HEMATOCRIT (BEAKER) (test code = 27.5 % 40.1-51.0 L 411) MEAN CORPUSCULAR VOLUME (BEAKER) 86 fL 79-92 (test code = 753) MEAN CORPUSCULAR HEMOGLOBIN 26.9 pg 25.7-32.2 (BEAKER) (test code = 751) MEAN CORPUSCULAR HEMOGLOBIN CONC 31.3 GM/DL 32.3-36.5 L (BEAKER) (test code = 752) RED CELL DISTRIBUTION WIDTH 14.9 % 11.6-14.4 H (BEAKER) (test code = 412) PLATELET COUNT (BEAKER) (test 196 K/CU MM 150-450 code = 756) MEAN PLATELET VOLUME (BEAKER) 8.9 fL 9.4-12.4 L (test code = 754) NUCLEATED RED BLOOD CELLS 0 /100 WBC 0-0 (BEAKER) (test code = 413) NEUTROPHILS RELATIVE PERCENT 61 % (BEAKER) (test code = 429) LYMPHOCYTES RELATIVE PERCENT 21 % (BEAKER) (test code = 430) MONOCYTES RELATIVE PERCENT 11 % (BEAKER) (test code = 431) EOSINOPHILS RELATIVE PERCENT 6 % (BEAKER) (test code = 432) BASOPHILS RELATIVE PERCENT 1 % (BEAKER) (test code = 437) NEUTROPHILS ABSOLUTE COUNT 5.17 K/ L 1.78-5.38 (BEAKER) (test code = 670) LYMPHOCYTES ABSOLUTE COUNT 1.80 K/ L 1.32-3.57 (BEAKER) (test code = 414) MONOCYTES ABSOLUTE COUNT (BEAKER) 0.89 K/ L 0.30-0.82 H (test code = 415) EOSINOPHILS ABSOLUTE COUNT 0.50 K/ L 0.04-0.54 (BEAKER) (test code = 416) BASOPHILS ABSOLUTE COUNT (BEAKER) 0.06 K/ L 0.01-0.08 (test code = 417) IMMATURE GRANULOCYTES-RELATIVE 0.90 % 0.00-1.00 PERCENT (BEAKER) (test code = 2801) B-TYPE NATRIURETIC FACTOR (BNP)2022-05-29 00:35:07 Test Item Value Reference Range Interpretation Comments B-TYPE NATRIURETIC PEPTIDE (BEAKER) 846 pg/mL 0-100 H (test code = 700) Hand Slitter ID - [id number] 00:11:27 Test Item Value Reference Range Interpretation Comments PARTIAL THROMBOPLASTIN TIME 80.3 seconds 22.5-36.0 H (BEAKER) (test code = 760) POCT-GLUCOSE [id number] 23:00:01 Test Item Value Reference Range Interpretation Comments POC-GLUCOSE METER 103 mg/dL 70-110 : TESTED A T [facility] 6720 (BEAKER) (test code = [facility], 1538) [address]: Hand Slitter/Techni macrina ID = [id number] for Remi Randhawa POCT-GLUCOSE [id number] 18:19:05 Test Item Value Reference Range Interpretation Comments POC-GLUCOSE METER 130 mg/dL 70-110 H : TESTED A T [facility] 6720 (BEAKER) (test code = [facility], 1538) [address]: Hand Slitter/Techni macrina ID = [id number] for MARCIO GARRETT COMPREHENSIVE METABOLIC [id number] 17:53:05 Test Item Value Reference Range Interpretation Comments TOTAL PROTEIN 7.5 gm/dL 6.0-8.3 (BEAKER) (test code = 770) ALBUMIN (BEAKER) 3.7 g/dL 3.5-5.0 (test code = 1145) ALKALINE 76 U/L 40-150 PHOSPHATASE (BEAKER) (test code = 346) BILIRUBIN TOTAL 0.4 mg/dL 0.2-1.2 (BEAKER) (test code = 377) SODIUM (BEAKER) 131 meq/L 136-145 L (test code = 381) POTASSIUM (BEAKER) 4.3 meq/L 3.5-5.1 (test code = 379) CHLORIDE (BEAKER) 93 meq/L 98-107 L (test code = 382) CO2 (BEAKER) (test 27 meq/L 22-29 code = 355) BLOOD UREA 23 mg/dL 7-21 H NITROGEN (BEAKER) (test code = 354) CREATININE 1.32 mg/dL 0.57-1.25 H (BEAKER) (test code = 358) GLUCOSE RANDOM 116 mg/dL 70-105 H (BEAKER) (test code = 652) CALCIUM (BEAKER) 9.3 mg/dL 8.4-10.2 (test code = 697) AST (SGOT) 24 U/L 5-34 (BEAKER) (test code = 353) ALT (SGPT) 44 U/L 6-55 (BEAKER) (test code = 347) EGFR (BEAKER) 70 Interpretatio n of eGFR (test code = [...] not appl icable for dialysis patien ts Hand Slitter ID - BSSpecimen slightly [id number] 17:45:37 Test Item Value Reference Range Interpretation Comments PARTIAL THROMBOPLASTIN TIME 87.8 seconds 22.5-36.0 H (BEAKER) (test code = 760) [id number] 11:23:00 Test Item Value Reference Range Interpretation Comments PARTIAL THROMBOPLASTIN TIME 71.4 seconds 22.5-36.0 H (BEAKER) (test code = 760) POCT-GLUCOSE [id number] 11:18:40 Test Item Value Reference Range Interpretation Comments POC-GLUCOSE METER 137 mg/dL 70-110 H : TESTED A T [facility] 6720 (MIA) (test code = FILEMON Fuentes [facility], 1538) [address]: Hand Slitter/Techni macrina ID = [id number] for BE LL, BEAULA RAD, CHEST, 1 VIEW, NON [id number] 11:05:00Reason for exam:->IABPShould this be performed at the bedside?->Yes [facility] 1980 Sex: MFINAL REPORT CLINICAL HISTORY: IABP TECHNIQUE: 1 view of the chest. COMPARISON: 05/27/2022 IMPRESSION: The IABP catheter tip projects at the apex of the aortic arch. The left axillary PICC line has retracted to the cavoatrial junction. No infiltrates or effusions. No significant cardiomegaly. Signed: Raheel Tyson Verified Date/Time: 05/28/2022 11:05:57 Reading Location: [address] Reading Room POCT-GLUCOSE [id number] 07:34:29 Test Item Value Reference Range Interpretation Comments POC-GLUCOSE METER 99 mg/dL 70-110 : TESTED A T [facility] 6720 (BEAKER) (test code = FILEMON [place], 1538) [address]: Hand Slitter/Techni macrina ID = [id number] for TRINA [place] [id number] 04:50:43 Test Item Value Reference Range Interpretation Comments PARTIAL THROMBOPLASTIN TIME 63.9 seconds 22.5-36.0 H (BEAKER) (test code = 760) LACTIC ACID, [id number] 02:37:03 Test Item Value Reference Range Interpretation Comments LACTATE BLOOD VENOUS (2) (BEAKER) 1.50 mmol/L 0.50-2.00 (test code = 2872) [id number] 01:47:07 Test Item Value Reference Range Interpretation Comments MAGNESIUM (BEAKER) (test code = 1.8 mg/dL 1.6-2.6 627) Hand Slitter ID - DBBASIC METABOLIC [id number] 01:47:06 Test Item Value Reference Range Interpretation Comments SODIUM (BEAKER) 133 meq/L 136-145 L (test code = 381) POTASSIUM 3.9 meq/L 3.5-5.1 (BEAKER) (test code = 379) CHLORIDE (BEAKER) 94 meq/L 98-107 L (test code = 382) CO2 (BEAKER) 25 meq/L 22-29 (test code = 355) BLOOD UREA 29 mg/dL 7-21 H NITROGEN (BEAKER) (test code = 354) CREATININE 1.62 mg/dL 0.57-1.25 H (BEAKER) (test code = 358) GLUCOSE RANDOM 147 mg/dL 70-105 H (BEAKER) (test code = 652) CALCIUM (BEAKER) 8.8 mg/dL 8.4-10.2 (test code = 697) EGFR (BEAKER) 55 [...] not appl icable for dialysis patien ts Hand Slitter ID - DBCBC W/PLT COUNT & AUTO [id number] 00:52:07 Test Item Value Reference Range Interpretation Comments WHITE BLOOD CELL COUNT (BEAKER) 8.8 K/ L 3.5-10.5 (test code = 775) RED BLOOD CELL COUNT (BEAKER) 3.35 M/ L 4.63-6.08 L (test code = 761) HEMOGLOBIN (BEAKER) (test code = 9.1 GM/DL 13.7-17.5 L 410) HEMATOCRIT (BEAKER) (test code = 28.6 % 40.1-51.0 L 411) MEAN CORPUSCULAR VOLUME (BEAKER) 85 fL 79-92 (test code = 753) MEAN CORPUSCULAR HEMOGLOBIN 27.2 pg 25.7-32.2 (BEAKER) (test code = 751) MEAN CORPUSCULAR HEMOGLOBIN CONC 31.8 GM/DL 32.3-36.5 L (BEAKER) (test code = 752) RED CELL DISTRIBUTION WIDTH 14.5 % 11.6-14.4 H (BEAKER) (test code = 412) PLATELET COUNT (BEAKER) (test 200 K/CU MM 150-450 code = 756) MEAN PLATELET VOLUME (BEAKER) 8.7 fL 9.4-12.4 L (test code = 754) NUCLEATED RED BLOOD CELLS 0 /100 WBC 0-0 (BEAKER) (test code = 413) NEUTROPHILS RELATIVE PERCENT 62 % (BEAKER) (test code = 429) LYMPHOCYTES RELATIVE PERCENT 20 % (BEAKER) (test code = 430) MONOCYTES RELATIVE PERCENT 9 % (BEAKER) (test code = 431) EOSINOPHILS RELATIVE PERCENT 7 % (BEAKER) (test code = 432) BASOPHILS RELATIVE PERCENT 1 % (BEAKER) (test code = 437) NEUTROPHILS ABSOLUTE COUNT 5.46 K/ L 1.78-5.38 H (BEAKER) (test code = 670) LYMPHOCYTES ABSOLUTE COUNT 1.77 K/ L 1.32-3.57 (BEAKER) (test code = 414) MONOCYTES ABSOLUTE COUNT (BEAKER) 0.75 K/ L 0.30-0.82 (test code = 415) EOSINOPHILS ABSOLUTE COUNT 0.62 K/ L 0.04-0.54 H (BEAKER) (test code = 416) BASOPHILS ABSOLUTE COUNT (BEAKER) 0.05 K/ L 0.01-0.08 (test code = 417) IMMATURE GRANULOCYTES-RELATIVE 1.10 % 0.00-1.00 H PERCENT (BEAKER) (test code = 2801) POCT-GLUCOSE [id number] 23:24:40 Test Item Value Reference Range Interpretation Comments POC-GLUCOSE METER 113 mg/dL 70-110 H : TESTED A T [facility] 6720 (BEAKER) (test code = [facility], 1538) 97431: Hand Slitter/Techni macrina ID = [id number] for Remi Randhawa POCT-GLUCOSE [id number] 16:50:06 Test Item Value Reference Range Interpretation Comments POC-GLUCOSE METER 119 mg/dL 70-110 H : TESTED A T [facility] 6720 (BEAKER) (test code = [facility], 1538) 59320: Hand Slitter/Techni macrina ID = [id number] for Ma rtinez, Kaye POCT-GLUCOSE [id number] 11:42:36 Test Item Value Reference Range Interpretation Comments POC-GLUCOSE METER 117 mg/dL 70-110 H : TESTED A T [facility] 6720 (BEAKER) (test code = [facility], 1538) 21650: Hand Slitter/Techni macrina ID = [id number] for Ma rtinez, Kaye POCT-GLUCOSE [id number] 07:37:20 Test Item Value Reference Range Interpretation Comments POC-GLUCOSE METER 118 mg/dL 70-110 H : TESTED A T [facility] 6720 (BEAKER) (test code = [facility], 1538) 89116: Hand Slitter/Techni macrina ID = [id number] for Ma rtinez, Kaye RAD, CHEST, 1 VIEW, NON [id number] 05:19:00Reason for exam:->IABPShould this be performed at the bedside?->Yes [facility] 1980 Sex: MFINAL REPORT RAD, CHEST, 1 VIEW, NON DEPT INDICATION: IABP COMPARISON: Prior day's exam FINDINGS: Portable frontal view of the chest. IMPRESSION: Support Lines: Right PICC terminates inthe right atrium. Intra-aortic balloon pump marker is 2.2 cm caudal to the superior margin of the aortic arch. Lungs and pleura: Lungs are clear. No pneumothorax. Heart and mediastinum: Stable contours. Additional findings: None. Signed: Sydni Patino MDReport Verified Date/Time: 05/27/2022 05:19:10 CALCIUM, [id number] 04:45:24 Test Item Value Reference Range Interpretation Comments CALCIUM IONIZED (BEAKER) (test 1.09 mmol/L 1.12-1.27 L code = 698) PH, BLOOD (BEAKER) (test code = 7.44 1810) [id number] 04:41:17 Test Item Value Reference Range Interpretation Comments PARTIAL THROMBOPLASTIN TIME 77.0 seconds 22.5-36.0 H (BEAKER) (test code = 760) COMPREHENSIVE METABOLIC [id number] 04:34:56 Test Item Value Reference Range Interpretation Comments TOTAL PROTEIN 7.3 gm/dL 6.0-8.3 (BEAKER) (test code = 770) ALBUMIN (BEAKER) 3.7 g/dL 3.5-5.0 (test code = 1145) ALKALINE 69 U/L 40-150 PHOSPHATASE (BEAKER) (test code = 346) BILIRUBIN TOTAL 0.5 mg/dL 0.2-1.2 (BEAKER) (test code = 377) SODIUM (BEAKER) 130 meq/L 136-145 L (test code = 381) POTASSIUM (BEAKER) 3.8 meq/L 3.5-5.1 (test code = 379) CHLORIDE (BEAKER) 90 meq/L 98-107 L (test code = 382) CO2 (BEAKER) (test 25 meq/L 22-29 code = 355) BLOOD UREA 27 mg/dL 7-21 H NITROGEN (BEAKER) (test code = 354) CREATININE 1.52 mg/dL 0.57-1.25 H (BEAKER) (test code = 358) GLUCOSE RANDOM 131 mg/dL 70-105 H (BEAKER) (test code = 652) CALCIUM (BEAKER) 9.4 mg/dL 8.4-10.2 (test code = 697) AST (SGOT) 24 U/L 5-34 (BEAKER) (test code = 353) ALT (SGPT) 54 U/L 6-55 (BEAKER) (test code = 347) EGFR (BEAKER) 59 Interpretatio n of eGFR (test code = 1092) mL/min/1.[address] age Description sq m Result G1 Norm al or high >=90 G2 Mildly decreased 60-89 G3a Mildl y to moderately 45-5 9 G3b Moderately to s everely 30-44 G4 Severl y decreased 15-29 G5 Kidney failure <15Reported eGF R is based on the CKD-EPI 1 equation that d oes not use a race coefficientEsti mated GFR is not as accur ate as Creatinine Cathy sewell in predicting glom erular filtration rate . Estimated GFR is not appl icable for dialysis patien ts Hand Slitter ID - [id number] 04:34:56 Test Item Value Reference Range Interpretation Comments MAGNESIUM (BEAKER) (test code = 2.0 mg/dL 1.6-2.6 627) Hand Slitter ID - AAHAMIDLACTIC ACID, [id number] 04:21:48 Test Item Value Reference Range Interpretation Comments LACTATE BLOOD VENOUS (2) (BEAKER) 1.44 mmol/L 0.50-2.00 (test code = 2872) Hand Slitter ID - MARCOCBC W/PLT COUNT & AUTO [id number] 04:18:06 Test Item Value Reference Range Interpretation Comments WHITE BLOOD CELL COUNT (BEAKER) 8.7 K/ L 3.5-10.5 (test code = 775) RED BLOOD CELL COUNT (BEAKER) 3.58 M/ L 4.63-6.08 L (test code = 761) HEMOGLOBIN (BEAKER) (test code = 9.8 GM/DL 13.7-17.5 L 410) HEMATOCRIT (BEAKER) (test code = 31.0 % 40.1-51.0 L 411) MEAN CORPUSCULAR VOLUME (BEAKER) 87 fL 79-92 (test code = 753) MEAN CORPUSCULAR HEMOGLOBIN 27.4 pg 25.7-32.2 (BEAKER) (test code = 751) MEAN CORPUSCULAR HEMOGLOBIN CONC 31.6 GM/DL 32.3-36.5 L (BEAKER) (test code = 752) RED CELL DISTRIBUTION WIDTH 14.8 % 11.6-14.4 H (BEAKER) (test code = 412) PLATELET COUNT (BEAKER) (test 210 K/CU MM 150-450 code = 756) MEAN PLATELET VOLUME (BEAKER) 8.7 fL 9.4-12.4 L (test code = 754) NUCLEATED RED BLOOD CELLS 0 /100 WBC 0-0 (BEAKER) (test code = 413) NEUTROPHILS RELATIVE PERCENT 59 % (BEAKER) (test code = 429) LYMPHOCYTES RELATIVE PERCENT 24 % (BEAKER) (test code = 430) MONOCYTES RELATIVE PERCENT 8 % (BEAKER) (test code = 431) EOSINOPHILS RELATIVE PERCENT 8 % (BEAKER) (test code = 432) BASOPHILS RELATIVE PERCENT 1 % (BEAKER) (test code = 437) NEUTROPHILS ABSOLUTE COUNT 5.16 K/ L 1.78-5.38 (BEAKER) (test code = 670) LYMPHOCYTES ABSOLUTE COUNT 2.06 K/ L 1.32-3.57 (BEAKER) (test code = 414) MONOCYTES ABSOLUTE COUNT (BEAKER) 0.69 K/ L 0.30-0.82 (test code = 415) EOSINOPHILS ABSOLUTE COUNT 0.65 K/ L 0.04-0.54 H (BEAKER) (test code = 416) BASOPHILS ABSOLUTE COUNT (BEAKER) 0.07 K/ L 0.01-0.08 (test code = 417) IMMATURE GRANULOCYTES-RELATIVE 0.90 % 0.00-1.00 PERCENT (BEAKER) (test code = 2801) POCT-GLUCOSE [id number] 21:59:24 Test Item Value Reference Range Interpretation Comments POC-GLUCOSE METER 128 mg/dL 70-110 H : [facility] ([facility] (test code = [facility] [place], 1538) 15983: Hand Slitter/Techni macrina ID = [id number] for Remi Randhawa BASIC METABOLIC [id number] 17:05:24 Test Item Value Reference Range Interpretation Comments SODIUM (BEAKER) 132 meq/L 136-145 L (test code = 381) POTASSIUM 4.1 meq/L 3.5-5.1 (BEAKER) (test code = 379) CHLORIDE (BEAKER) 93 meq/L 98-107 L (test code = 382) CO2 (BEAKER) 23 meq/L 22-29 (test code = 355) BLOOD UREA 20 mg/dL 7-21 NITROGEN (BEAKER) (test code = 354) CREATININE 1.35 mg/dL 0.57-1.25 H (BEAKER) (test code = 358) GLUCOSE RANDOM 193 mg/dL 70-105 H (BEAKER) (test code = 652) CALCIUM (BEAKER) 9.3 mg/dL 8.4-10.2 (test code = 697) EGFR (BEAKER) 68 Interpretatio n of eGFR (test code = [...] not appl icable for dialysis patien ts Hand Slitter ID - [id number] 17:05:24 Test Item Value Reference Range Interpretation Comments MAGNESIUM (BEAKER) (test code = 2.2 mg/dL 1.6-2.6 627) Hand Slitter ID - AAHAMIDLACTIC ACID, [id number] 16:57:22 Test Item Value Reference Range Interpretation Comments LACTATE BLOOD VENOUS (2) (BEAKER) 2.07 mmol/L 0.50-2.00 H (test code = 2872) Hand Slitter ID - AAHAMIDPOCT-GLUCOSE [id number] 16:52:44 Test Item Value Reference Range Interpretation Comments POC-GLUCOSE METER 172 mg/dL 70-110 H : TESTED A T [facility] 6720 (BEAKER) (test code = [facility], 1538) 08286: Hand Slitter/Techni macrina ID = [id number] for Be Karrie haas POCT-GLUCOSE [id number] 11:03:04 Test Item Value Reference Range Interpretation Comments POC-GLUCOSE METER 127 mg/dL 70-110 H : TESTED A T [facility] 6720 (BEAKER) (test code = [facility], 1538) 03570: Hand Slitter/Techni macrina ID = [id number] for BE LLTRINA POCT-GLUCOSE [id number] 07:49:36 Test Item Value Reference Range Interpretation Comments POC-GLUCOSE METER 108 mg/dL 70-110 : TESTED A T [facility] 6720 (BEAKER) (test code = [facility], 1538) 32534: Hand Slitter/Techni macrina ID = [id number] for BE LL, BEAULA COMPREHENSIVE METABOLIC [id number] 06:16:07 Test Item Value Reference Range Interpretation Comments TOTAL PROTEIN 7.1 gm/dL 6.0-8.3 (BEAKER) (test code = 770) ALBUMIN (BEAKER) 3.5 g/dL 3.5-5.0 (test code = 1145) ALKALINE 69 U/L 40-150 PHOSPHATASE (BEAKER) (test code = 346) BILIRUBIN TOTAL 0.5 mg/dL 0.2-1.2 (BEAKER) (test code = 377) SODIUM (BEAKER) 134 meq/L 136-145 L (test code = 381) POTASSIUM (BEAKER) 3.6 meq/L 3.5-5.1 (test code = 379) CHLORIDE (BEAKER) 93 meq/L 98-107 L (test code = 382) CO2 (BEAKER) (test 29 meq/L 22-29 code = 355) BLOOD UREA 23 mg/dL 7-21 H NITROGEN (BEAKER) (test code = 354) CREATININE 1.27 mg/dL 0.57-1.25 H (BEAKER) (test code = 358) GLUCOSE RANDOM 144 mg/dL 70-105 H (BEAKER) (test code = 652) CALCIUM (BEAKER) 9.4 mg/dL 8.4-10.2 (test code = 697) AST (SGOT) 30 U/L 5-34 (BEAKER) (test code = 353) ALT (SGPT) 66 U/L 6-55 H (BEAKER) (test code = 347) EGFR (BEAKER) 73 Interpretatio n of eGFR [...] not appl icable for dialysis patien ts Hand Slitter ID - [id number] 06:16:07 Test Item Value Reference Range Interpretation Comments MAGNESIUM (BEAKER) (test code = 2.1 mg/dL 1.6-2.6 627) Hand Slitter ID - [id number] 06:03:06 Test Item Value Reference Range Interpretation Comments PARTIAL THROMBOPLASTIN TIME 84.1 seconds 22.5-36.0 H (BEAKER) (test code = 760) LACTIC ACID, [id number] 06:01:45 Test Item Value Reference Range Interpretation Comments LACTATE BLOOD VENOUS 1.44 mmol/L 0.50-2.00 Specime n slightly (2) (BEAKER) (test hemolyzed code = 0142) Hand Slitter ID - BSCBC W/PLT COUNT & AUTO [id number] 05:53:23 Test Item Value Reference Range Interpretation Comments WHITE BLOOD CELL COUNT (BEAKER) 8.2 K/ L 3.5-10.5 (test code = 775) RED BLOOD CELL COUNT (BEAKER) 3.44 M/ L 4.63-6.08 L (test code = 761) HEMOGLOBIN (BEAKER) (test code = 9.5 GM/DL 13.7-17.5 L 410) HEMATOCRIT (BEAKER) (test code = 29.9 % 40.1-51.0 L 411) MEAN CORPUSCULAR VOLUME (BEAKER) 87 fL 79-92 (test code = 753) MEAN CORPUSCULAR HEMOGLOBIN 27.6 pg 25.7-32.2 (BEAKER) (test code = 751) MEAN CORPUSCULAR HEMOGLOBIN CONC 31.8 GM/DL 32.3-36.5 L (BEAKER) (test code = 752) RED CELL DISTRIBUTION WIDTH 14.8 % 11.6-14.4 H (BEAKER) (test code = 412) PLATELET COUNT (BEAKER) (test 199 K/CU MM 150-450 code = 756) MEAN PLATELET VOLUME (BEAKER) 8.9 fL 9.4-12.4 L (test code = 754) NUCLEATED RED BLOOD CELLS 0 /100 WBC 0-0 (BEAKER) (test code = 413) NEUTROPHILS RELATIVE PERCENT 55 % (BEAKER) (test code = 429) LYMPHOCYTES RELATIVE PERCENT 23 % (BEAKER) (test code = 430) MONOCYTES RELATIVE PERCENT 9 % (BEAKER) (test code = 431) EOSINOPHILS RELATIVE PERCENT 11 % (BEAKER) (test code = 432) BASOPHILS RELATIVE PERCENT 1 % (BEAKER) (test code = 437) NEUTROPHILS ABSOLUTE COUNT 4.50 K/ L 1.78-5.38 (BEAKER) (test code = 670) LYMPHOCYTES ABSOLUTE COUNT 1.90 K/ L 1.32-3.57 (BEAKER) (test code = 414) MONOCYTES ABSOLUTE COUNT (BEAKER) 0.74 K/ L 0.30-0.82 (test code = 415) EOSINOPHILS ABSOLUTE COUNT 0.89 K/ L 0.04-0.54 H (BEAKER) (test code = 416) BASOPHILS ABSOLUTE COUNT (BEAKER) 0.08 K/ L 0.01-0.08 (test code = 417) IMMATURE GRANULOCYTES-RELATIVE 0.90 % 0.00-1.00 PERCENT (BEAKER) (test code = 2801) CALCIUM, [id number] 05:35:59 Test Item Value Reference Range Interpretation Comments CALCIUM IONIZED (BEAKER) (test 1.09 mmol/L 1.12-1.27 L code = 698) PH, BLOOD (BEAKER) (test code = 7.46 1810) RAD, CHEST, 1 VIEW, NON [id number] 01:12:00Reason for exam:->IABPShould this be performed at the bedside?->Yes [facility] 1980 Sex: MFINAL REPORT EXAMINATION: RAD, CHEST, 1 VIEW, NON DEPT. INDICATION: 41-year-old malewith IABP. COMPARISON: Chest radiograph dated 05/25/2022. FINDINGS/ IMPRESSION:Presumed IABP marker overlies the mid aortic knob. Mild cardiomegaly. No consolidation, pleural effusion, or pneumothorax. Signed: Sera Alvarez Verified Date/Time: 05/26/2022 01:12:30 POCT-GLUCOSE METER 2022-05-25 22:36:27 Test Item Value Reference Range Interpretation Comments POC-GLUCOSE METER 162 mg/dL 70-110 H : TESTED A T [facility] 6720 (MIA) (test code = [facility] [place], 1538) 74878: Hand Slitter/Techni macrina ID = [id number] for TEMO KENYON [id number] 22:27:08 Test Item Value Reference Range Interpretation Comments PARTIAL THROMBOPLASTIN TIME 70.9 seconds 22.5-36.0 H (EMMAAKER) (test code = 760) [id number] 16:57:41 Test Item Value Reference Range Interpretation Comments MAGNESIUM (BEAKER) 2.1 mg/dL 1.6-2.6 Specimen slightly (test code = 627) hemolyzed Hand Slitter ID - BSBASIC METABOLIC [id number] 16:57:41 Test Item Value Reference Range Interpretation Comments SODIUM (BEAKER) 133 meq/L 136-145 L (test code = 381) POTASSIUM 4.2 meq/L 3.5-5.1 Specimen slight ly (BEAKER) (test hemolyzed code = 379) CHLORIDE (BEAKER) 91 meq/L 98-107 L (test code = 382) CO2 (BEAKER) 27 meq/L 22-29 (test code = 355) BLOOD UREA 24 mg/dL 7-21 H NITROGEN (BEAKER) (test code = 354) CREATININE 1.31 mg/dL 0.57-1.25 H Specimen slight ly (BEAKER) (test hemolyzed code = 358) GLUCOSE RANDOM 144 mg/dL 70-105 H (BEAKER) (test code = 652) CALCIUM (BEAKER) 9.3 mg/dL 8.4-10.2 (test code = 697) EGFR (BEAKER) 71 Interpretatio n of eGFR (test code = [...] not appl icable for dialysis patien ts Hand Slitter ID - BSLACTIC ACID, [id number] 16:44:06 Test Item Value Reference Range Interpretation Comments LACTATE BLOOD VENOUS (2) (BEAKER) 2.01 mmol/L 0.50-2.00 H (test code = 2872) Hand Slitter ID - BSPOCT-GLUCOSE [id number] 16:19:55 Test Item Value Reference Range Interpretation Comments POC-GLUCOSE METER 123 mg/dL 70-110 H : TESTED A T [facility] 6720 (BEAKER) (test code = [facility], 1538) 09840: Hand Slitter/Techni macrina ID = [id number] for Karrie Horner SPUTUM CULTURE + GRAM [id number] 14:54:53 Test Item Value Reference Range Interpretation Comments CULTURE A 3+ Beta-hemolyt ic (BEAKER) (test streptococcus group code = 1095) F, by serologic al grouping GRAM STAIN <1+ WBCs RESULT (BEAKER) (test code = 1123) GRAM STAIN 0-5 epithelial RESULT (BEAKER) cells (test code = 383743) GRAM STAIN 1+ gram positive RESULT (BEAKER) cocci in chains (test code = and pairs 535707) GRAM STAIN 1+ gram positive RESULT (BEAKER) rods (test code = 369336) 4+ Normal respiratory yoav [id number] 14:03:38 Test Item Value Reference Range Interpretation Comments PARTIAL THROMBOPLASTIN TIME 73.7 seconds 22.5-36.0 H (BEAKER) (test code = 760) POCT-GLUCOSE [id number] 12:01:28 Test Item Value Reference Range Interpretation Comments POC-GLUCOSE METER 138 mg/dL 70-110 H : TESTED A T [facility] 6720 (BEAKER) (test code = [facility], 1538) 75688: Hand Slitter/Techni macrina ID = [id number] for AG UILAR, GILBERTO POCT-GLUCOSE [id number] 08:13:39 Test Item Value Reference Range Interpretation Comments POC-GLUCOSE METER 107 mg/dL 70-110 : TESTED A T [facility] 6720 (BEAKER) (test code = [facility], 1538) 07903: Hand Slitter/Techni macrina ID = [id number] for AG UILAR, GILBERTO COMPREHENSIVE METABOLIC [id number] 05:52:14 Test Item Value Reference Range Interpretation Comments TOTAL PROTEIN 7.4 gm/dL 6.0-8.3 (BEAKER) (test code = 770) ALBUMIN (BEAKER) 3.5 g/dL 3.5-5.0 (test code = 1145) ALKALINE 66 U/L 40-150 PHOSPHATASE (BEAKER) (test code = 346) BILIRUBIN TOTAL 0.5 mg/dL 0.2-1.2 (BEAKER) (test code = 377) SODIUM (BEAKER) 134 meq/L 136-145 L (test code = 381) POTASSIUM (BEAKER) 3.6 meq/L 3.5-5.1 (test code = 379) CHLORIDE (BEAKER) 92 meq/L 98-107 L (test code = 382) CO2 (BEAKER) (test 28 meq/L 22-29 code = 355) BLOOD UREA 28 mg/dL 7-21 H NITROGEN (BEAKER) (test code = 354) CREATININE 1.39 mg/dL 0.57-1.25 H (BEAKER) (test code = 358) GLUCOSE RANDOM 134 mg/dL 70-105 H (BEAKER) (test code = 652) CALCIUM (BEAKER) 9.3 mg/dL 8.4-10.2 (test code = 697) AST (SGOT) 24 U/L 5-34 (BEAKER) (test code = 353) ALT (SGPT) 60 U/L 6-55 H (BEAKER) (test code = 347) EGFR (BEAKER) 66 Interpretatio n of eGFR (test code = [...] not appl icable for dialysis patien ts Hand Slitter ID - [id number] 05:52:14 Test Item Value Reference Range Interpretation Comments MAGNESIUM (BEAKER) (test code = 2.4 mg/dL 1.6-2.6 627) Hand Slitter ID - [id number] 05:43:13 Test Item Value Reference Range Interpretation Comments PARTIAL THROMBOPLASTIN TIME 90.7 seconds 22.5-36.0 H (BEAKER) (test code = 760) LACTIC ACID, [id number] 05:43:12 Test Item Value Reference Range Interpretation Comments LACTATE BLOOD VENOUS (2) (BEAKER) 1.89 mmol/L 0.50-2.00 (test code = 2872) Hand Slitter ID - MMCALCIUM, [id number] 05:38:14 Test Item Value Reference Range Interpretation Comments CALCIUM IONIZED (BEAKER) (test 1.10 mmol/L 1.12-1.27 L code = 698) PH, BLOOD (BEAKER) (test code = 7.48 1810) CBC W/PLT COUNT & AUTO [id number] 05:31:46 Test Item Value Reference Range Interpretation Comments WHITE BLOOD CELL COUNT (BEAKER) 8.6 K/ L 3.5-10.5 (test code = 775) RED BLOOD CELL COUNT (BEAKER) 3.63 M/ L 4.63-6.08 L (test code = 761) HEMOGLOBIN (BEAKER) (test code = 10.0 GM/DL 13.7-17.5 L 410) HEMATOCRIT (BEAKER) (test code = 32.0 % 40.1-51.0 L 411) MEAN CORPUSCULAR VOLUME (BEAKER) 88 fL 79-92 (test code = 753) MEAN CORPUSCULAR HEMOGLOBIN 27.5 pg 25.7-32.2 (BEAKER) (test code = 751) MEAN CORPUSCULAR HEMOGLOBIN CONC 31.3 GM/DL 32.3-36.5 L (BEAKER) (test code = 752) RED CELL DISTRIBUTION WIDTH 14.6 % 11.6-14.4 H (BEAKER) (test code = 412) PLATELET COUNT (BEAKER) (test 179 K/CU MM 150-450 code = 756) MEAN PLATELET VOLUME (BEAKER) 8.5 fL 9.4-12.4 L (test code = 754) NUCLEATED RED BLOOD CELLS 0 /100 WBC 0-0 (BEAKER) (test code = 413) NEUTROPHILS RELATIVE PERCENT 59 % (BEAKER) (test code = 429) LYMPHOCYTES RELATIVE PERCENT 20 % (BEAKER) (test code = 430) MONOCYTES RELATIVE PERCENT 9 % (BEAKER) (test code = 431) EOSINOPHILS RELATIVE PERCENT 10 % (BEAKER) (test code = 432) BASOPHILS RELATIVE PERCENT 1 % (BEAKER) (test code = 437) NEUTROPHILS ABSOLUTE COUNT 5.06 K/ L 1.78-5.38 (BEAKER) (test code = 670) LYMPHOCYTES ABSOLUTE COUNT 1.70 K/ L 1.32-3.57 (BEAKER) (test code = 414) MONOCYTES ABSOLUTE COUNT (BEAKER) 0.80 K/ L 0.30-0.82 (test code = 415) EOSINOPHILS ABSOLUTE COUNT 0.89 K/ L 0.04-0.54 H (BEAKER) (test code = 416) BASOPHILS ABSOLUTE COUNT (BEAKER) 0.08 K/ L 0.01-0.08 (test code = 417) IMMATURE GRANULOCYTES-RELATIVE 0.80 % 0.00-1.00 PERCENT (BEAKER) (test code = 2801) RAD, CHEST, 1 VIEW, NON [id number] 03:25:00Reason for exam:->IABPShould this be performed at the bedside?->Yes [facility] 1980 Sex: MFINAL REPORT RAD, CHEST, 1 VIEW, NON DEPT INDICATION: IABP COMPARISON: Prior day's exam FINDINGS: Portable frontal view of the chest. IMPRESSION: Support Lines: The intra-aortic balloonpump marker is similar to previous 1.6 cm caudal to the superior margin of the aortic arch. Stable left PICC. Lungs and pleura: The lungs are clear. No pneumothorax. Heart and mediastinum: Stable contours. Additional findings: None. Signed: Sydni Patinoort Verified Date/Time: 05/25/2022 03:25:30 POCT-GLUCOSE [id number] 22:46:07 Test Item Value Reference Range Interpretation Comments POC-GLUCOSE METER 140 mg/dL 70-110 H : TESTED A T [facility] 6720 (BEAKER) (test code = [facility], 1538) 73323: Hand Slitter/Techni macrina ID = [id number] for TEMO KENYON [id number] 22:36:57 Test Item Value Reference Range Interpretation Comments PARTIAL THROMBOPLASTIN TIME 73.2 seconds 22.5-36.0 H (BEAKER) (test code = 760) [id number] 20:26:13 Test Item Value Reference Range Interpretation Comments MAGNESIUM (BEAKER) (test code = 1.9 mg/dL 1.6-2.6 627) Hand Slitter ID - [id number] 20:26:12 Test Item Value Reference Range Interpretation Comments POTASSIUM (BEAKER) (test code = 3.7 meq/L 3.5-5.1 379) Hand Slitter ID - BSLACTIC ACID, [id number] 20:20:06 Test Item Value Reference Range Interpretation Comments LACTATE BLOOD VENOUS (2) (BEAKER) 1.82 mmol/L 0.50-2.00 (test code = 2872) Hand Slitter ID - BSPOCT-GLUCOSE [id number] 16:50:55 Test Item Value Reference Range Interpretation Comments POC-GLUCOSE METER 113 mg/dL 70-110 H : TESTED A T [facility] 6720 (BEAKER) (test code = [facility], 1538) 30562: Hand Slitter/Techni macrina ID = [id number] for JINNY ALMANZA [id number] 14:12:07 Test Item Value Reference Range Interpretation Comments PARTIAL THROMBOPLASTIN TIME 69.1 seconds 22.5-36.0 H (BEAKER) (test code = 760) LACTIC ACID, [id number] 14:02:44 Test Item Value Reference Range Interpretation Comments LACTATE BLOOD VENOUS 2.15 mmol/L 0.50-2.00 H Specime n slightly (2) (BEAKER) (test hemolyzed code = 2872) Hand Slitter ID - ZARINA, CHEST, 1 VIEW, NON [id number] 12:46:00Reason for exam:->check picc placementShould this be performed at the bedside?->Yes [facility] 1980 Sex: MFINAL REPORT RAD, CHEST, 1 VIEW, NON DEPT INDICATION: check picc placement COMPARISON: Prior day's exam FINDINGS: Portable frontal view of the chest. IMPRESSION: Support Lines: Left axillary approach IABP with most cephalad marker projecting 1.4 cm below the aortic knob. New [place]li sheath tip overlies the right IJ. Lungs and pleura: Lungs are clear. No significant pneumothorax. Heart and mediastinum: Stable contours. Stable surgical changes. Additional findings: None. Signed: Natalee Orta Verified Date/Time: 05/24/2022 12:46:30 Reading Location: [address] Reading Room POCT-GLUCOSE METER 2022-05-24 11:51:47 Test Item Value Reference Range Interpretation Comments POC-GLUCOSE METER 109 mg/dL 70-110 : [facility] (test code = [facility], 1538) [address]: Hand Slitter/Techni macrina ID = [id number] for JU AREZ, JINNY POCT-GLUCOSE [id number] 07:38:48 Test Item Value Reference Range Interpretation Comments POC-GLUCOSE METER 94 mg/dL 70-110 : [facility] A T [facility] 6720 [facility] (test code = [facility], 1538) [address]44: Hand Slitter/Techni macrnia ID = [id number] for JUAR EZ, JINNY RAD, CHEST, 1 VIEW, NON [id number] 06:40:00Reason for exam:->IABPShould this be performed at the bedside?->Yes [facility] 1980 Sex: MFINAL REPORT RAD, CHEST, 1 VIEW, NON DEPT INDICATION: IABP COMPARISON: Prior day's exam FINDINGS: Portable frontal view of the chest. IMPRESSION: Support Lines: Left axillary approach IABP with most cephalad marker projecting 1.8 cm below the aortic knob. [place]li sheath tip overlies the right IJ. Lungs and pleura: Lungs are clear. No significant pneumothorax. Heart and mediastinum: Stable contours. Stable surgical changes. Additional findings: None. Signed: Natalee Orta MDReportVerified Date/Time: 05/24/2022 06:40:59 COMPREHENSIVE METABOLIC [id number] 05:42:06 Test Item Value Reference Range Interpretation Comments TOTAL PROTEIN 7.3 gm/dL 6.0-8.3 (BEAKER) (test code = 770) ALBUMIN (BEAKER) 3.5 g/dL 3.5-5.0 (test code = 1145) ALKALINE 69 U/L 40-150 PHOSPHATASE (BEAKER) (test code = 346) BILIRUBIN TOTAL 0.5 mg/dL 0.2-1.2 (BEAKER) (test code = 377) SODIUM (BEAKER) 136 meq/L 136-145 (test code = 381) POTASSIUM (BEAKER) 3.7 meq/L 3.5-5.1 (test code = 379) CHLORIDE (BEAKER) 93 meq/L 98-107 L (test code = 382) CO2 (BEAKER) (test 32 meq/L 22-29 H code = 355) BLOOD UREA 40 mg/dL 7-21 H NITROGEN (BEAKER) (test code = 354) CREATININE 1.63 mg/dL 0.57-1.25 H (BEAKER) (test code = 358) GLUCOSE RANDOM 92 mg/dL 70-105 (BEAKER) (test code = 652) CALCIUM (BEAKER) 9.6 mg/dL 8.4-10.2 (test code = 697) AST (SGOT) 29 U/L 5-34 (BEAKER) (test code = 353) ALT (SGPT) 82 U/L 6-55 H (BEAKER) (test code = 347) EGFR (BEAKER) 54 Interpretatio n of eGFR (test code = [...] not appl icable for dialysis patien ts Hand Slitter ID - [id number] 05:42:06 Test Item Value Reference Range Interpretation Comments MAGNESIUM (BEAKER) (test code = 2.2 mg/dL 1.6-2.6 627) Hand Slitter ID - MARIOCALCIUM, [id number] 05:05:29 Test Item Value Reference Range Interpretation Comments CALCIUM IONIZED (BEAKER) (test 1.10 mmol/L 1.12-1.27 L code = 698) PH, BLOOD (BEAKER) (test code = 7.46 1810) [id number] 04:48:26 Test Item Value Reference Range Interpretation Comments PARTIAL THROMBOPLASTIN TIME 50.8 seconds 22.5-36.0 H (BEAKER) (test code = 760) CBC W/PLT COUNT & AUTO [id number] 04:43:43 Test Item Value Reference Range Interpretation Comments WHITE BLOOD CELL COUNT (BEAKER) 11.5 K/ L 3.5-10.5 H (test code = 775) RED BLOOD CELL COUNT (BEAKER) 3.84 M/ L 4.63-6.08 L (test code = 761) HEMOGLOBIN (BEAKER) (test code = 10.3 GM/DL 13.7-17.5 L 410) HEMATOCRIT (BEAKER) (test code = 32.8 % 40.1-51.0 L 411) MEAN CORPUSCULAR VOLUME (BEAKER) 85 fL 79-92 (test code = 753) MEAN CORPUSCULAR HEMOGLOBIN 26.8 pg 25.7-32.2 (BEAKER) (test code = 751) MEAN CORPUSCULAR HEMOGLOBIN CONC 31.4 GM/DL 32.3-36.5 L (BEAKER) (test code = 752) RED CELL DISTRIBUTION WIDTH 14.6 % 11.6-14.4 H (BEAKER) (test code = 412) PLATELET COUNT (BEAKER) (test 227 K/CU MM 150-450 code = 756) MEAN PLATELET VOLUME (BEAKER) 9.4 fL 9.4-12.4 (test code = 754) NUCLEATED RED BLOOD CELLS 0 /100 WBC 0-0 (BEAKER) (test code = 413) NEUTROPHILS RELATIVE PERCENT 74 % (BEAKER) (test code = 429) LYMPHOCYTES RELATIVE PERCENT 14 % (BEAKER) (test code = 430) MONOCYTES RELATIVE PERCENT 8 % (BEAKER) (test code = 431) EOSINOPHILS RELATIVE PERCENT 3 % (BEAKER) (test code = 432) BASOPHILS RELATIVE PERCENT 1 % (BEAKER) (test code = 437) NEUTROPHILS ABSOLUTE COUNT 8.56 K/ L 1.78-5.38 H (BEAKER) (test code = 670) LYMPHOCYTES ABSOLUTE COUNT 1.61 K/ L 1.32-3.57 (BEAKER) (test code = 414) MONOCYTES ABSOLUTE COUNT (BEAKER) 0.86 K/ L 0.30-0.82 H (test code = 415) EOSINOPHILS ABSOLUTE COUNT 0.37 K/ L 0.04-0.54 (BEAKER) (test code = 416) BASOPHILS ABSOLUTE COUNT (BEAKER) 0.07 K/ L 0.01-0.08 (test code = 417) IMMATURE GRANULOCYTES-RELATIVE 0.40 % 0.00-1.00 PERCENT (BEAKER) (test code = 2801) LACTIC ACID, [id number] 00:19:10 Test Item Value Reference Range Interpretation Comments LACTATE BLOOD VENOUS (2) (BEAKER) 2.41 mmol/L 0.50-2.00 H (test code = 2872) POCT-GLUCOSE [id number] 21:11:40 Test Item Value Reference Range Interpretation Comments POC-GLUCOSE METER 106 mg/dL 70-110 : Notified RN/MD: (VICKIE) (test code = TESTED AT [facility] 67[address] 1538) [facility], [address]: Hand Slitter/Techni macrina ID = [id number] for LUC ZAMORA LACTIC ACID, [id number] 17:25:57 Test Item Value Reference Range Interpretation Comments LACTATE BLOOD VENOUS (2) (BEAKER) 2.37 mmol/L 0.50-2.00 H (test code = 2872) Hand Slitter ID - [id number] 17:25:49 Test Item Value Reference Range Interpretation Comments ALPHA-1 ANTITRYPSIN (BEAKER) 244.60 mg/dL 90.00-200.00 H (test code = 502) Hand Slitter ID - BSPOCT-GLUCOSE [id number] 16:16:29 Test Item Value Reference Range Interpretation Comments POC-GLUCOSE METER 106 mg/dL 70-110 : TESTED A T [facility] [address] ([facility]) (test code = [facility], 1538) [address]: Hand Slitter/Techni macrina ID = [id number] for EMMA ROSALESAUGRACY OXYGEN SATURATION, [id number] 16:14:59 Test Item Value Reference Range Interpretation Comments O2 SATURATION (MEASURED) (BEAKER) 66.7 % (test code = 1455) IMMUNOGLOBULIN G (IGG)2022-05-23 15:50:54 Test Item Value Reference Range Interpretation Comments IMMUNOGLOBULIN G (IGG) (BEAKER) 1478 mg/dL 540-1822 (test code = 427) Hand Slitter ID - BSRESPIRATORY [id number] 14:16:35 Test Item Value Reference Range Interpretation Comments HUMAN METAPNEUMOVIRUS Not detected Not detected, (BEAKER) (test code = Equivocal 6375) RHINOVIRUS (BEAKER) Not detected Not detected, (test code = 2684) Equivocal INFLUENZA A (BEAKER) Not detected Not detected, (test code = 2685) Equivocal INFLUENZA A (NO SUBTYPE) (test code = 3606) INFLUENZA A SUBTYPE H1 (BEAKER) (test code = 2686) INFLUENZA A SUBTYPE H3 (BEAKER) (test code = 2687) INFLUENZA A SUBTYPE H1-2009 (BEAKER) (test code = 3198) INFLUENZA B (BEAKER) Not detected Not detected, (test code = 2688) Equivocal RESPIRATORY SYNCYTIAL Not detected Not detected, VIRUS (BEAKER) (test Equivocal code = 3199) PARAINFLUENZA VIRUS 1 Not detected Not detected, (BEAKER) (test code = Equivocal 2691) PARAINFLUENZA VIRUS 2 Not detected Not detected, (BEAKER) (test code = Equivocal 2692) PARAINFLUENZA VIRUS 3 Detected Not detected, A Conta ct isolation if (BEAKER) (test code = Equivocal immuno suppressed or 2693) young children. Consider stoppi ng antibiotics. PARAINFLUENZA VIRUS 4 Not detected Not detected, (BEAKER) (test code = Equivocal 3200) ADENOVIRUS (BEAKER) Not detected Not detected, (test code = 2694) Equivocal CORONAVIRUS 229E Not detected Not detected, (BEAKER) (test code = Equivocal 3201) CORONAVIRUS HKU1 Not detected Not detected, (BEAKER) (test code = Equivocal 3202) CORONAVIRUS NL63 Not detected Not detected, (BEAKER) (test code = Equivocal 3203) CORONAVIRUS OC43 Not detected Not detected, (BEAKER) (test code = Equivocal 3204) BORDETELLA PERTUSSIS Not detected Not detected, (BEAKER) (test code = Equivocal 3205) CHLAMYDOPHILA Not detected Not detected, PNEUMONIAE (BEAKER) Equivocal (test code = 3206) MYCOPLASMA PNEUMONIAE Not detected Not detected, (BEAKER) (test code = Equivocal 3207) SEVERE ACUTE Not detected Not detected, RESPIRATORY Equivocal SYNDROME-CORONAVIRUS- 2 (test code = 9555458) BORDETELLA Not detected Not detected, PARAPERTUSSIS (BKR) Equivocal (test code = 3384912) Other viruses and bacteria not targeted by this PCR panel cannot be excluded; therefore clinical correlation and follow up of serology, culture results, and other molecular studies is required. The results are not intended to be used as the sole means for clinical diagnosis or patient management decisions. This sample was tested at the [facility] using the [employer] FilmArray Respiratory Panel. It is FDA cleared and has been verified and approved by the [facility] for clinical use on nasopharyngeal swab specimens.The performance of the FilmArrayRP has not been established in individuals who received influenza vaccine. Recent administration of a nasal influenza vaccine may cause false positive results for Influenza A and/orInfluenza B.B-TYPE NATRIURETIC FACTOR (BNP)2022-05-23 13:56:51 Test Item Value Reference Range Interpretation Comments B-TYPE NATRIURETIC PEPTIDE (BEAKER) 213 pg/mL 0-100 H (test code = 700) Hand Slitter ID - [id number] 13:00:40 Test Item Value Reference Range Interpretation Comments PROCALCITONIN (BEAKER) (test code 0.63 ng/mL <0.05 H = 3036) SEPSIS RISK (ng/mL)Low: 0.05-0.50Intermediate: 0.51-2.00High: >=2.01POCT- GLUCOSE [id number] 11:14:55 Test Item Value Reference Range Interpretation Comments POC-GLUCOSE METER 162 mg/dL 70-110 H : TESTED A T [facility] [address] ([employer]) (test code = [facility] [place], 1538) [address]: Hand Slitter/Techni macrina ID = [id number] for AG UILARMARGILBERTO U/S, DUPLEX, [id number] 09:36:00Reason for exam:->US liver doppler to rule out thrombosis [facility] : 1980 Sex: MFINAL REPORT TECHNIQUE: Color Doppler and spectral Doppler ultrasound of the portal/hepatic vasculature. INDICATION: US liver doppler to rule out thrombosis. COMPARISON: Ultrasound from05/18/2022. FINDINGS: LIVER: Smooth liver contour. No focal liver lesions. HEPATIC VASCULATURE: Portalveins are patent with normal waveform and directionality. Flow velocity in the main portal vein is within normal limits. The hepatic arteries are patent with normal flow velocities, resistive indices, and waveforms. The hepatic veins and confluence are patent. The main portal vein measures 0.9 cm in diameter. The hepatic arterial resistive indices measure 0.8 with a proper hepatic arterial acceleration time of 0.06 seconds. MIDLINE VASCULATURE: The visualized inferior vena cava is patent. The maximum visualized aortic diameter is 2 cm. Splenic artery and vein are patent. A balloon pump is visualized. IMPRESSION: This is a normal Doppler evaluation of the hepatic vasculature. Signed: Meng Miner port Verified Date/Time: 05/23/2022 09:36:15 POCT-GLUCOSE [id number] 08:19:05 Test Item Value Reference Range Interpretation Comments POC-GLUCOSE METER 126 mg/dL 70-110 H : TESTED A T [facility] [address] (MIA) (test code = [place], 1538) [address]: Hand Slitter/Techni macrina ID = [id number] for AG UILAR, GILBERTO RAD, CHEST, 1 VIEW, NON [id number] 07:13:00Reason for exam:->IABPShould this be performed at the bedside?->Yes [facility] : 1980 Sex: MFINAL REPORT RAD, CHEST, 1 VIEW, NON DEPT INDICATION: IABP COMPARISON: Prior day's exam FINDINGS: Portable frontal view of the chest. IMPRESSION: Support Lines: Left axillary approach IABP with most cephalad marker projecting 2.4 cm below the aortic knob. [place]-Ashli sheath tip overlies the right IJ. Lungs and pleura: Lungs are clear. No significant pneumothorax. Heart and mediastinum: Stable contours. Stable surgical changes. Additional findings: None. Signed: Natalee Orta MDReportVerified Date/Time: 05/23/2022 07:13:49 LACTIC ACID, [id number] 06:44:30 Test Item Value Reference Range Interpretation Comments LACTATE BLOOD VENOUS (2) (BEAKER) 2.61 mmol/L 0.50-2.00 H (test code = 2872) Hand Slitter ID - BSOXYGEN SATURATION, [id number] 06:14:29 Test Item Value Reference Range Interpretation Comments O2 SATURATION (MEASURED) (BEAKER) 72.0 % (test code = 1455) [id number] 03:56:14 Test Item Value Reference Range Interpretation Comments MAGNESIUM (BEAKER) (test code = 2.5 mg/dL 1.6-2.6 627) Hand Slitter ID - [id number] 03:56:14 Test Item Value Reference Range Interpretation Comments PHOSPHORUS (BEAKER) (test code = 4.9 mg/dL 2.3-4.7 H 604) Hand Slitter ID - BSHEPATIC FUNCTION [id number] 03:56:14 Test Item Value Reference Range Interpretation Comments TOTAL PROTEIN (BEAKER) (test code = 8.5 gm/dL 6.0-8.3 H 770) ALBUMIN (BEAKER) (test code = 1145) 4.0 g/dL 3.5-5.0 BILIRUBIN TOTAL (BEAKER) (test code 0.5 mg/dL 0.2-1.2 = 377) BILIRUBIN DIRECT (BEAKER) (test 0.2 mg/dL 0.1-0.5 code = 706) ALKALINE PHOSPHATASE (BEAKER) (test 75 U/L 40-150 code = 346) AST (SGOT) (BEAKER) (test code = 49 U/L 5-34 H 353) ALT (SGPT) (BEAKER) (test code = 113 U/L 6-55 H 347) Hand Slitter ID - BSBASIC METABOLIC [id number] 03:56:13 Test Item Value Reference Range Interpretation Comments SODIUM (BEAKER) 133 meq/L 136-145 L (test code = 381) POTASSIUM 3.6 meq/L 3.5-5.1 (BEAKER) (test code = 379) CHLORIDE (BEAKER) 88 meq/L 98-107 L (test code = 382) CO2 (BEAKER) 29 meq/L 22-29 (test code = 355) BLOOD UREA 39 mg/dL 7-21 H NITROGEN (BEAKER) (test code = 354) CREATININE 1.63 mg/dL 0.57-1.25 H (BEAKER) (test code = 358) GLUCOSE RANDOM 132 mg/dL 70-105 H (BEAKER) (test code = 652) CALCIUM (BEAKER) 9.7 mg/dL 8.4-10.2 (test code = 697) EGFR (BEAKER) 54 Interpretatio n of eGFR (test code = mL/min/1.73 values Stage De scription 1092) sq m Result G1 Ana l or high >=90 G2 Mildly decreased 60-89 G3a Mildl y to moderately 45-5 9 G3b Moderately to s everely 30-44 G4 Severl y decreased 15-29 G5 Kidney failure <15Reported eGF R is based on the CKD-EPI 1 equation that d oes not use a race coefficientEsti mated GFR is not as accur ate as Creatinine Cathy melodie in predicting glom erular filtration rate . Estimated GFR is not appl icable for dialysis patien ts Hand Slitter ID - BSLACTIC ACID, [id number] 03:47:10 Test Item Value Reference Range Interpretation Comments LACTATE BLOOD VENOUS (2) (BEAKER) 2.66 mmol/L 0.50-2.00 H (test code = 2872) Hand Slitter ID - [id number] 03:42:05 Test Item Value Reference Range Interpretation Comments PARTIAL THROMBOPLASTIN TIME 64.9 seconds 22.5-36.0 H (BEAKER) (test code = 760) PROTHROMBIN [id number] 03:40:44 Test Item Value Reference Range Interpretation Comments PROTIME (BEAKER) (test code = 15.0 seconds 11.9-14.2 H 759) INR (BEAKER) (test code = 370) 1.25 <=5.90 RECOMMENDED COUMADIN/WARFARIN INR THERAPY RANGESSTANDARD DOSE: 2.0 - 3.0 Includes: PROPHYLAXIS for venous thrombosis, systemic embolization; TREATMENT for venous thrombosis and/or pulmonary embolus.HIGH RISK: Target INR is 2.5-3.5 for patients with mechanical heart valves.CALCIUM, [id number] 03:39:17 Test Item Value Reference Range Interpretation Comments CALCIUM IONIZED (BEAKER) (test 1.11 mmol/L 1.12-1.27 L code = 698) PH, BLOOD (BEAKER) (test code = 7.45 9500) CBC W/PLT COUNT & AUTO [id number] 03:30:14 Test Item Value Reference Range Interpretation Comments WHITE BLOOD CELL COUNT (BEAKER) 16.4 K/ L 3.5-10.5 H (test code = 775) RED BLOOD CELL COUNT (BEAKER) 4.19 M/ L 4.63-6.08 L (test code = 761) HEMOGLOBIN (BEAKER) (test code = 11.2 GM/DL 13.7-17.5 L 410) HEMATOCRIT (BEAKER) (test code = 35.1 % 40.1-51.0 L 411) MEAN CORPUSCULAR VOLUME (BEAKER) 84 fL 79-92 (test code = 753) MEAN CORPUSCULAR HEMOGLOBIN 26.7 pg 25.7-32.2 (BEAKER) (test code = 751) MEAN CORPUSCULAR HEMOGLOBIN CONC 31.9 GM/DL 32.3-36.5 L (BEAKER) (test code = 752) RED CELL DISTRIBUTION WIDTH 14.2 % 11.6-14.4 (BEAKER) (test code = 412) PLATELET COUNT (BEAKER) (test 232 K/CU MM 150-450 code = 756) MEAN PLATELET VOLUME (BEAKER) 9.6 fL 9.4-12.4 (test code = 754) NUCLEATED RED BLOOD CELLS 0 /100 WBC 0-0 (BEAKER) (test code = 413) NEUTROPHILS RELATIVE PERCENT 83 % (BEAKER) (test code = 429) LYMPHOCYTES RELATIVE PERCENT 8 % (BEAKER) (test code = 430) MONOCYTES RELATIVE PERCENT 8 % (BEAKER) (test code = 431) EOSINOPHILS RELATIVE PERCENT 0 % (BEAKER) (test code = 432) BASOPHILS RELATIVE PERCENT 0 % (BEAKER) (test code = 437) NEUTROPHILS ABSOLUTE COUNT 13.62 K/ L 1.78-5.38 H (BEAKER) (test code = 670) LYMPHOCYTES ABSOLUTE COUNT 1.27 K/ L 1.32-3.57 L (BEAKER) (test code = 414) MONOCYTES ABSOLUTE COUNT (BEAKER) 1.36 K/ L 0.30-0.82 H (test code = 415) EOSINOPHILS ABSOLUTE COUNT 0.00 K/ L 0.04-0.54 L (BEAKER) (test code = 416) BASOPHILS ABSOLUTE COUNT (BEAKER) 0.03 K/ L 0.01-0.08 (test code = 417) IMMATURE GRANULOCYTES-RELATIVE 0.60 % 0.00-1.00 PERCENT (BEAKER) (test code = 2801) OXYGEN SATURATION, [id number] 03:29:03 Test Item Value Reference Range Interpretation Comments O2 SATURATION (MEASURED) (BEAKER) 70.0 % (test code = 1455) LACTIC ACID, [id number] 00:15:01 Test Item Value Reference Range Interpretation Comments LACTATE BLOOD VENOUS 3.14 mmol/L 0.50-2.00 H Specime n slightly (2) (BEAKER) (test hemolyzed code = 2872) Hand Slitter ID - BSOXYGEN SATURATION, [id number] 23:45:19 Test Item Value Reference Range Interpretation Comments O2 SATURATION (MEASURED) (BEAKER) 67.2 % (test code = 1455) POCT-GLUCOSE [id number] 22:29:27 Test Item Value Reference Range Interpretation Comments POC-GLUCOSE METER 155 mg/dL 70-110 H : TESTED A T [facility] 67[address] (BEAKER) (test code = [place], 1538) [address]: Hand Slitter/Techni macrina ID = [id number] for Si nchioco, Filipina BASIC METABOLIC [id number] 21:30:30 Test Item Value Reference Range Interpretation Comments SODIUM (BEAKER) 133 meq/L 136-145 L (test code = 381) POTASSIUM 3.8 meq/L 3.5-5.1 (BEAKER) (test code = 379) CHLORIDE (BEAKER) 90 meq/L 98-107 L (test code = 382) CO2 (BEAKER) 28 meq/L 22-29 (test code = 355) BLOOD UREA 36 mg/dL 7-21 H NITROGEN (BEAKER) (test code = 354) CREATININE 1.56 mg/dL 0.57-1.25 H (BEAKER) (test code = 358) GLUCOSE RANDOM 136 mg/dL 70-105 H (BEAKER) (test code = 652) CALCIUM (BEAKER) 9.7 mg/dL 8.4-10.2 (test code = 697) EGFR (BEAKER) 57 Interpretatio n of eGFR (test code = [...] not appl icable for dialysis patien ts Hand Slitter ID - [id number] 21:30:30 Test Item Value Reference Range Interpretation Comments MAGNESIUM (BEAKER) (test code = 2.5 mg/dL 1.6-2.6 627) Hand Slitter ID - [id number] 20:44:39 Test Item Value Reference Range Interpretation Comments MAGNESIUM (BEAKER) 2.5 mg/dL 1.6-2.6 Specimen markedly (test code = 627) hemolyzed Hand Slitter ID - BSBASIC METABOLIC [id number] 20:44:39 Test Item Value Reference Range Interpretation Comments SODIUM (BEAKER) 130 meq/L 136-145 L (test code = 381) POTASSIUM 5.6 meq/L 3.5-5.1 H Specimen marked ly (BEAKER) (test hemolyzed code = 379) CHLORIDE (BEAKER) 91 meq/L 98-107 L (test code = 382) CO2 (BEAKER) 23 meq/L 22-29 (test code = 355) BLOOD UREA 35 mg/dL 7-21 H NITROGEN (BEAKER) (test code = 354) CREATININE 1.57 mg/dL 0.57-1.25 H Specimen marked ly (BEAKER) (test hemolyzed code = 358) GLUCOSE RANDOM 185 mg/dL 70-105 H (BEAKER) (test code = 652) CALCIUM (BEAKER) 9.3 mg/dL 8.4-10.2 (test code = 697) EGFR (BEAKER) 57 Interpretatio n of eGFR (test code = [...] not appl icable for dialysis patien ts Hand Slitter ID - BSLACTIC ACID, [id number] 19:03:17 Test Item Value Reference Range Interpretation Comments LACTATE BLOOD VENOUS (2) (BEAKER) 3.66 mmol/L 0.50-2.00 H (test code = 2872) Hand Slitter ID - [id number] 18:34:26 Test Item Value Reference Range Interpretation Comments PARTIAL THROMBOPLASTIN TIME 78.1 seconds 22.5-36.0 H (BEAKER) (test code = 760) OXYGEN SATURATION, [id number] 18:25:21 Test Item Value Reference Range Interpretation Comments O2 SATURATION (MEASURED) (BEAKER) 70.0 % (test code = 1455) POCT-GLUCOSE [id number] 16:18:28 Test Item Value Reference Range Interpretation Comments POC-GLUCOSE METER 201 mg/dL 70-110 H : TESTED A T [facility] 6720 (BEAKER) (test code = [place], 1538) [address]: Hand Slitter/Techni macrina ID = [id number] for GILBERTO HUMPHREYS LACTIC ACID, [id number] 14:17:52 Test Item Value Reference Range Interpretation Comments LACTATE BLOOD VENOUS 3.12 mmol/L 0.50-2.00 H Specime n slightly (2) (BEAKER) (test hemolyzed code = 2872) Hand Slitter ID Michelle CORONA WOXYGEN SATURATION, [id number] 14:04:28 Test Item Value Reference Range Interpretation Comments O2 SATURATION (MEASURED) (BEAKER) 75.0 % (test code = 1455) [id number] 12:03:45 Test Item Value Reference Range Interpretation Comments PARTIAL THROMBOPLASTIN TIME 73.0 seconds 22.5-36.0 H (BEAKER) (test code = 760) [id number] 11:54:43 Test Item Value Reference Range Interpretation Comments MAGNESIUM (BEAKER) (test code = 2.1 mg/dL 1.6-2.6 627) Hand Slitter ID - CJ WBASIC METABOLIC [id number] 11:54:42 Test Item Value Reference Range Interpretation Comments SODIUM (BEAKER) 135 meq/L 136-145 L (test code = 381) POTASSIUM 4.1 meq/L 3.5-5.1 (BEAKER) (test code = 379) CHLORIDE (BEAKER) 96 meq/L 98-107 L (test code = 382) CO2 (BEAKER) 26 meq/L 22-29 (test code = 355) BLOOD UREA 29 mg/dL 7-21 H NITROGEN (BEAKER) (test code = 354) CREATININE 1.31 mg/dL 0.57-1.25 H (BEAKER) (test code = 358) GLUCOSE RANDOM 163 mg/dL 70-105 H (BEAKER) (test code = 652) CALCIUM (BEAKER) 9.3 mg/dL 8.4-10.2 (test code = 697) EGFR (BEAKER) 71 Interpretatio n of eGFR (test code = [...] GFR is not appl icable for dialysis patistefanie ts Hand Slitter ID - CJ WURINALYSIS W/ REFLEX URINE [id number] 11:52:21 Test Item Value Reference Range Interpretation Comments COLOR (BEAKER) (test code = 470) Colorless CLARITY (BEAKER) (test code = 469) Hazy SPECIFIC GRAVITY UA (BEAKER) (test 1.018 1.001-1.035 code = 468) PH UA (BEAKER) (test code = 467) 5.5 5.0-8.0 PROTEIN UA (BEAKER) (test code = 10 mg/dL Negative A 464) GLUCOSE UA (BEAKER) (test code = Negative Negative 365) KETONES UA (BEAKER) (test code = Negative Negative 371) BILIRUBIN UA (BEAKER) (test code = Negative Negative 462) BLOOD UA (BEAKER) (test code = Negative Negative 461) NITRITE UA (BEAKER) (test code = Negative Negative 465) LEUKOCYTE ESTERASE UA (BEAKER) Negative Negative (test code = 466) UROBILINOGEN UA (BEAKER) (test 0.2 0.2-1.0 code = 463) RBC UA (BEAKER) (test code = 519) < /HPF WBC UA (BEAKER) (test code = 520) < /HPF BACTERIA (BEAKER) (test code = Occasional 517) MUCUS (BEAKER) (test code = 1574) Rare SQUAMOUS EPITHELIAL (BEAKER) (test 3 /HPF code = 516) SOURCE(BEAKER) (test code = 2795) Hand Slitter ID - techPOCT-GLUCOSE [id number] 11:05:27 Test Item Value Reference Range Interpretation Comments POC-GLUCOSE METER 164 mg/dL 70-110 H : TESTED A T [facility] [address] (BEAKER) (test code = [place], 1538) [address]: Hand Slitter/Techni macrina ID = [id number] for AG UILAR, GILBERTO LACTIC ACID, [id number] 10:56:04 Test Item Value Reference Range Interpretation Comments LACTATE BLOOD VENOUS 3.36 mmol/L 0.50-2.00 H Specime n slightly (2) (BEAKER) (test hemolyzed code = 2872) Hand Slitter ID - CJ RUSHING SATURATION, [id number] 10:51:44 Test Item Value Reference Range Interpretation Comments O2 SATURATION (MEASURED) (BEAKER) 69.9 % (test code = 1455) CT, CHEST, WITH [id number] 10:24:00Transplant evalUnlisted Reason for Exam - Click Yes and Enter Reason Below->No [facility] 1980 Sex: MFINAL REPORT CT, ABDOMEN, RENAL MASS, CYST EVALUATION, CT, CHEST, WITH CONTRAST HISTORY: pre-hear transplant; need clarification on a finding of L renal mass vs prominent column of Madi. Pneumonia, effusion or abscess suspected, xray done COMPARISON: None. TECHNIQUE: CT, ABDOMEN, RENAL MASS, CYST EVALUATION, without and with IV contrast, and CT, CHEST, WITH CONTRAST. The examinationwas performed according to the departmental dose-optimization program, which includes automated exposure control, adjustment of the mA and/or kV according to patient size and/or use of iterative reconstruction technique. FINDINGS: Chest: Hypoenhancing consolidation in the posterior right lower lobe. Cardiomegaly. Left subclavian approach intra-aortic balloon pump with distal marker in the infrarenal aorta and proximal marker in the proximal descending thoracic aorta. New [place]-Ashli catheter with tip in the main pulmonary artery. No pleural effusion or pneumothorax. Central airways are patent. No suspicious lymph nodes in the chest. Thyroid gland and esophagus are unremarkable. Liver: Unremarkable.Gallbladder and bile ducts: Unremarkable.Spleen: Unremarkable.Pancreas: Unremarkable.Adrenals: UnremarkableKidneys and ureters: No hydronephrosis bilaterally and no renal mass. There are wedge-shaped hypodens ities on postcontrast images in the right renal cortex.Bowel: Unremarkable.Lymph nodes: Unremarkable.Peritoneum: Unremarkable.Vessels: Intra-aortic balloon pump as above. Chest/Abdominal wall: Unremarkable.Bones: Unremarkable. IMPRESSION: 1.Consolidation in the posterior right lower lobe which is hypoenhancing and highly concerning for pneumonia. 2.No renal mass bilaterally. 3.Wedge-shaped hypodensities in the right renal cortex concerning for pyelonephritis. 4.Cardiomegaly and intra-aortic balloon pump Signed: Alejandro Landa MDReport Verified Date/Time: 05/22/2022 10:24:06 CT, ABDOMEN, RENAL MASS, CYST EVALUATION 2022-05-22 10:24:00Reason for Exam:->pre-hear transplant; need clarification on a finding of L renal mass vs prominent column of Mad[facility] : 1980 Sex: MFINAL REPORT CT, ABDOMEN, RENAL MASS, CYST EVALUATION, CT, CHEST, WITH CONTRAST HISTORY: pre-hear transplant; need clarification on a finding of L renal mass vs prominent column of Madi. Pneumonia, effusion or abscess suspected, xray done COMPARISON: None. TECHNIQUE: CT, ABDOMEN, RENAL MASS, CYST EVALUATION, without and with IV contrast, and CT, CHEST, WITH CONTRAST. The examinationwas performed according to the departmental dose-optimization program, which includes automated exposure control, adjustment of the mA and/or kV according to patient size and/or use of iterative reconstruction technique. FINDINGS: Chest: Hypoenhancing consolidation in the posterior right lower lobe. Cardiomegaly. Left subclavian approach intra-aortic balloon pump with distal marker in the infrarenal aorta and proximal marker in the proximal descending thoracic aorta. New [place]-Ashli catheter with tip in the main pulmonary artery. No pleural effusion or pneumothorax. Central airways are patent. No suspicious lymph nodes in the chest. Thyroid gland and esophagus are unremarkable. Liver: Unremarkable.Gallbladder and bile ducts: Unremarkable.Spleen: Unremarkable.Pancreas: Unremarkable.Adrenals: UnremarkableKidneys and ureters: No hydronephrosis bilaterally and no renal mass. There are wedge-shaped hypodens ities on postcontrast images in the right renal cortex.Bowel: Unremarkable.Lymph nodes: Unremarkable.Peritoneum: Unremarkable.Vessels: Intra-aortic balloon pump as above. Chest/Abdominal wall: Unremarkable.Bones: Unremarkable. IMPRESSION: 1.Consolidation in the posterior right lower lobe which is hypoenhancing and highly concerning for pneumonia. 2.No renal mass bilaterally. 3.Wedge-shaped hypodensities in the right renal cortex concerning for pyelonephritis. 4.Cardiomegaly and intra-aortic balloon pump Signed: [facility] Verified Date/Time: 05/22/2022 10:24:06 RAD, CHEST, 1 VIEW, NON [id number] 07:50:00 Reason for exam:->IABPShould this be performed at the bedside?->Yes [facility] 1980 Sex: MFINAL REPORT RAD, CHEST, 1 VIEW, NON DEPT INDICATION: IABP COMPARISON: Prior day's exam FINDINGS: Portable frontal view of the chest. IMPRESSION: Support Lines: Left axillary approach IABP with most cephalad marker projecting 1.5 cm below the aortic knob. [place]-Ashli tip overlies the pulmonary outflow tract. Lungs and pleura: Lungs are clear. No significant pneumothorax. Heart and mediastinum: Stable contours. Stable surgical changes. Additional findings: None. Signed: Natalee OrtaMDReport Verified Date/Time: 05/22/2022 07:50:23 -GLUCOSE [id number] 07:38:52 Test Item Value Reference Range Interpretation Comments POC-GLUCOSE METER 185 mg/dL 70-110 H : TESTED A T [facility] 6720 (BEAKER) (test code = FILEMON Fuentes [facility], 1538) [address]: Hand Slitter/Techni macrina ID = [id number] for AG ALICELARGILBERTO HEPATIC FUNCTION [id number] 04:53:03 Test Item Value Reference Range Interpretation Comments TOTAL PROTEIN (BEAKER) (test code = 7.6 gm/dL 6.0-8.3 770) ALBUMIN (BEAKER) (test code = 1145) 3.6 g/dL 3.5-5.0 BILIRUBIN TOTAL (BEAKER) (test code 0.5 mg/dL 0.2-1.2 = 377) BILIRUBIN DIRECT (BEAKER) (test 0.2 mg/dL 0.1-0.5 code = 706) ALKALINE PHOSPHATASE (BEAKER) (test 76 U/L 40-150 code = 346) AST (SGOT) (BEAKER) (test code = 39 U/L 5-34 H 353) ALT (SGPT) (BEAKER) (test code = 102 U/L 6-55 H 347) Hand Slitter ID - CJ WBASIC METABOLIC [id number] 04:53:02 Test Item Value Reference Range Interpretation Comments SODIUM (BEAKER) 133 meq/L 136-145 L (test code = 381) POTASSIUM 4.4 meq/L 3.5-5.1 (BEAKER) (test code = 379) CHLORIDE (BEAKER) 95 meq/L 98-107 L (test code = 382) CO2 (BEAKER) 26 meq/L 22-29 (test code = 355) BLOOD UREA 32 mg/dL 7-21 H NITROGEN (BEAKER) (test code = 354) CREATININE 1.40 mg/dL 0.57-1.25 H (BEAKER) (test code = 358) GLUCOSE RANDOM 214 mg/dL 70-105 H (BEAKER) (test code = 652) CALCIUM (BEAKER) 9.6 mg/dL 8.4-10.2 (test code = 697) EGFR (BEAKER) 65 [...] not appl icable for dialysis patien ts Hand Slitter ID - CJ [id number] 04:53:02 Test Item Value Reference Range Interpretation Comments MAGNESIUM (BEAKER) (test code = 2.3 mg/dL 1.6-2.6 627) Hand Slitter ID - CJ [id number] 04:53:02 Test Item Value Reference Range Interpretation Comments PHOSPHORUS (BEAKER) (test code = 4.2 mg/dL 2.3-4.7 604) Hand Slitter ID - CJ [id number] 04:47:44 Test Item Value Reference Range Interpretation Comments PARTIAL THROMBOPLASTIN TIME 110.3 seconds 22.5-36.0 H (BEAKER) (test code = 760) PROTHROMBIN [id number] 04:45:13 Test Item Value Reference Range Interpretation Comments PROTIME (BEAKER) (test code = 15.5 seconds 11.9-14.2 H 759) INR (BEAKER) (test code = 370) 1.26 <=5.90 RECOMMENDED COUMADIN/WARFARIN INR THERAPY RANGESSTANDARD DOSE: 2.0 - 3.0 Includes: PROPHYLAXIS for venous thrombosis, systemic embolization; TREATMENT for venous thrombosis and/or pulmonary embolus.HIGH RISK: Target INR is 2.5-3.5 for patients with mechanical heart valves.LACTIC ACID, [id number] 03:59:31 Test Item Value Reference Range Interpretation Comments LACTATE BLOOD VENOUS (2) (BEAKER) 2.96 mmol/L 0.50-2.00 H (test code = 2872) Hand Slitter ID - DBCBC W/PLT COUNT & AUTO [id number] 03:52:13 Test Item Value Reference Range Interpretation Comments WHITE BLOOD CELL COUNT (BEAKER) 6.4 K/ L 3.5-10.5 (test code = 775) RED BLOOD CELL COUNT (BEAKER) 3.88 M/ L 4.63-6.08 L (test code = 761) HEMOGLOBIN (BEAKER) (test code = 10.6 GM/DL 13.7-17.5 L 410) HEMATOCRIT (BEAKER) (test code = 33.4 % 40.1-51.0 L 411) MEAN CORPUSCULAR VOLUME (BEAKER) 86 fL 79-92 (test code = 753) MEAN CORPUSCULAR HEMOGLOBIN 27.3 pg 25.7-32.2 (BEAKER) (test code = 751) MEAN CORPUSCULAR HEMOGLOBIN CONC 31.7 GM/DL 32.3-36.5 L (BEAKER) (test code = 752) RED CELL DISTRIBUTION WIDTH 14.2 % 11.6-14.4 (BEAKER) (test code = 412) PLATELET COUNT (BEAKER) (test 172 K/CU MM 150-450 code = 756) MEAN PLATELET VOLUME (BEAKER) 9.9 fL 9.4-12.4 (test code = 754) NUCLEATED RED BLOOD CELLS 0 /100 WBC 0-0 (BEAKER) (test code = 413) NEUTROPHILS RELATIVE PERCENT 90 % (BEAKER) (test code = 429) LYMPHOCYTES RELATIVE PERCENT 8 % (BEAKER) (test code = 430) MONOCYTES RELATIVE PERCENT 1 % (BEAKER) (test code = 431) EOSINOPHILS RELATIVE PERCENT 0 % (BEAKER) (test code = 432) BASOPHILS RELATIVE PERCENT 0 % (BEAKER) (test code = 437) NEUTROPHILS ABSOLUTE COUNT 5.74 K/ L 1.78-5.38 H (BEAKER) (test code = 670) LYMPHOCYTES ABSOLUTE COUNT 0.49 K/ L 1.32-3.57 L (BEAKER) (test code = 414) MONOCYTES ABSOLUTE COUNT (BEAKER) 0.08 K/ L 0.30-0.82 L (test code = 415) EOSINOPHILS ABSOLUTE COUNT 0.00 K/ L 0.04-0.54 L (BEAKER) (test code = 416) BASOPHILS ABSOLUTE COUNT (BEAKER) 0.02 K/ L 0.01-0.08 (test code = 417) IMMATURE GRANULOCYTES-RELATIVE 0.30 % 0.00-1.00 PERCENT (BEAKER) (test code = 2801) OXYGEN SATURATION, [id number] 03:44:56 Test Item Value Reference Range Interpretation Comments O2 SATURATION (MEASURED) (BEAKER) 78.0 % (test code = 1455) CALCIUM, [id number] 03:44:56 Test Item Value Reference Range Interpretation Comments CALCIUM IONIZED (BEAKER) (test 1.14 mmol/L 1.12-1.27 code = 698) PH, BLOOD (BEAKER) (test code = 7.43 1810) POCT-GLUCOSE [id number] 21:52:05 Test Item Value Reference Range Interpretation Comments POC-GLUCOSE METER 127 mg/dL 70-110 H : TESTED A T [facility] 6720 (BEAKER) (test code = FILEMON Fuentes [facility], 1538) [address]: Hand Slitter/Techni macrina ID = [id number] for Si carlotahiestrellita, Filipina BASIC METABOLIC [id number] 21:00:27 Test Item Value Reference Range Interpretation Comments SODIUM (BEAKER) 135 meq/L 136-145 L (test code = 381) POTASSIUM 4.0 meq/L 3.5-5.1 Specimen slight ly (BEAKER) (test hemolyzed code = 379) CHLORIDE (BEAKER) 96 meq/L 98-107 L (test code = 382) CO2 (BEAKER) 27 meq/L 22-29 (test code = 355) BLOOD UREA 28 mg/dL 7-21 H NITROGEN (BEAKER) (test code = 354) CREATININE 1.49 mg/dL 0.57-1.25 H Specimen slight ly (BEAKER) (test hemolyzed code = 358) GLUCOSE RANDOM 119 mg/dL 70-105 H (BEAKER) (test code = 652) CALCIUM (BEAKER) 10.0 mg/dL 8.4-10.2 (test code = 697) EGFR (BEAKER) 60 Interpretatio n of eGFR [...] not appl icable for dialysis patien ts Hand Slitter ID - [id number] 21:00:26 Test Item Value Reference Range Interpretation Comments MAGNESIUM (BEAKER) 2.0 mg/dL 1.6-2.6 Specimen slightly (test code = 627) hemolyzed Hand Slitter ID - DBLACTIC ACID, [id number] 20:58:10 Test Item Value Reference Range Interpretation Comments LACTATE BLOOD VENOUS (2) (BEAKER) 1.71 mmol/L 0.50-2.00 (test code = 2872) Hand Slitter ID - DBOXYGEN SATURATION, [id number] 20:13:32 Test Item Value Reference Range Interpretation Comments O2 SATURATION (MEASURED) (BEAKER) 67.1 % (test code = 1455) LACTIC ACID, [id number] 17:30:25 Test Item Value Reference Range Interpretation Comments LACTATE BLOOD VENOUS (2) (BEAKER) 2.07 mmol/L 0.50-2.00 H (test code = 2872) Hand Slitter ID - DBPOCT-GLUCOSE [id number] 16:27:21 Test Item Value Reference Range Interpretation Comments POC-GLUCOSE METER 120 mg/dL 70-110 H : TESTED A T [facility] 6720 (BEAKER) (test code = [place], 1538) [address]: Hand Slitter/Techni macrina ID = [id number] for BE LL, BEAULA HEPATITIS B SURFACE [id number] 15:49:31 Test Item Value Reference Range Interpretation Comments HEPATITIS B SURFACE ANTIBODY < mIU/mL <8.0 (BEAKER) (test code = 647) Hand Slitter ID - DBBASIC METABOLIC [id number] 14:29:45 Test Item Value Reference Range Interpretation Comments SODIUM (BEAKER) 135 meq/L 136-145 L (test code = 381) POTASSIUM 4.0 meq/L 3.5-5.1 (BEAKER) (test code = 379) CHLORIDE (BEAKER) 97 meq/L 98-107 L (test code = 382) CO2 (BEAKER) 24 meq/L 22-29 (test code = 355) BLOOD UREA 27 mg/dL 7-21 H NITROGEN (BEAKER) (test code = 354) CREATININE 1.51 mg/dL 0.57-1.25 H (BEAKER) (test code = 358) GLUCOSE RANDOM 163 mg/dL 70-105 H (BEAKER) (test code = 652) CALCIUM (BEAKER) 9.7 mg/dL 8.4-10.2 (test code = 697) EGFR (BEAKER) 59 [...] not appl icable for dialysis patien ts Hand Slitter ID - [id number] 14:29:45 Test Item Value Reference Range Interpretation Comments MAGNESIUM (BEAKER) (test code = 2.1 mg/dL 1.6-2.6 627) Hand Slitter ID - DBANTI-NUCLEAR ANTIBODY (DONAVAN)2022-05-21 14:28:37 Test Item Value Reference Range Interpretation Comments ANTI-NUCLEAR ANTIBODY (DONAVAN) (BEAKER) Negative Negative (test code = 418) Test performed by IFA method.LACTIC ACID, [id number] 13:01:07 Test Item Value Reference Range Interpretation Comments LACTATE BLOOD VENOUS 2.48 mmol/L 0.50-2.00 H Specime n slightly (2) (BEVICKIE) (test hemolyzed code = 2872) Hand Slitter ID - KRISTEN SATURATION, [id number] 12:48:22 Test Item Value Reference Range Interpretation Comments O2 SATURATION (MEASURED) (MIA) 72.8 % (test code = 1455) POCT-GLUCOSE [id number] 11:30:55 Test Item Value Reference Range Interpretation Comments POC-GLUCOSE METER 144 mg/dL 70-110 H : TESTED A T [facility] 6720 (MIA) (test code = [facility], 1538) [address]: Hand Slitter/Techni macrina ID = [id number] for BE LL, BEAULA POCT-GLUCOSE [id number] 07:35:13 Test Item Value Reference Range Interpretation Comments POC-GLUCOSE METER 121 mg/dL 70-110 H : TESTED A T [facility] 6720 (MIA) (test code = [email or web address] [facility], 1538) [address]: Hand Slitter/Techni macrina ID = [id number] for BE LL, BEAULA RAD, CHEST, 1 VIEW, NON [id number] 07:06:00Reason for exam:->IABPShould this be performed at the bedside?->Yes [facility] : 1980 Sex: MFINAL REPORT RAD, CHEST, 1 VIEW, NON DEPT INDICATION: IABP COMPARISON: Prior day's exam FINDINGS: Portable frontal view of the chest. IMPRESSION: Support Lines: Left axillary approach IABP with most cephalad marker projecting 1.5 cm below the aortic knob. New [place]-Ashli tip overlies the pulmonary outflow tract. Lungs and pleura: Lungs are clear. No significant pneumothorax. Heart and mediastinum: Stable contours. Stable surgical changes. Additional findings: None. Signed: Natalee Orta MDReport Verified Date/Time: 05/21/2022 07:06:19 [id number] 06:17:16 Test Item Value Reference Range Interpretation Comments PARTIAL THROMBOPLASTIN TIME 85.0 seconds 22.5-36.0 H (BEAKER) (test code = 760) T SPOT [id number] 06:05:10 Test Item Value Reference Range Interpretation Comments T-SPOT TB (BEAKER) (test See scanned report. code = 1683) NEG CONTROL SPOT COUNT See s canned report. (BEAKER) (test code = 1684) PANEL A SPOT (BEAKER) (test See scanned report. code = 1685) PANEL B SPOT (BEAKER) (test See scanned report. code = 1686) POS CONTROL SPOT CT See scan saturnino report. (BEAKER) (test code = 1687) SCAN RESULT (test code = 6157305) [id number] 05:26:52 Test Item Value Reference Range Interpretation Comments PHOSPHORUS (BEAKER) (test code = 4.6 mg/dL 2.3-4.7 604) Hand Slitter ID - MARCOHEPATIC FUNCTION [id number] 05:26:52 Test Item Value Reference Range Interpretation Comments TOTAL PROTEIN (BEAKER) (test code = 7.9 gm/dL 6.0-8.3 770) ALBUMIN (BEAKER) (test code = 1145) 3.7 g/dL 3.5-5.0 BILIRUBIN TOTAL (BEAKER) (test code 0.6 mg/dL 0.2-1.2 = 377) BILIRUBIN DIRECT (BEAKER) (test 0.3 mg/dL 0.1-0.5 code = 706) ALKALINE PHOSPHATASE (BEAKER) (test 80 U/L 40-150 code = 346) AST (SGOT) (BEAKER) (test code = 49 U/L 5-34 H 353) ALT (SGPT) (BEAKER) (test code = 120 U/L 6-55 H 347) Hand Slitter ID - TIMOBASIC METABOLIC [id number] 05:26:51 Test Item Value Reference Range Interpretation Comments SODIUM (BEAKER) 135 meq/L 136-145 L (test code = 381) POTASSIUM 3.9 meq/L 3.5-5.1 (BEAKER) (test code = 379) CHLORIDE (BEAKER) 96 meq/L 98-107 L (test code = 382) CO2 (BEAKER) 27 meq/L 22-29 (test code = 355) BLOOD UREA 31 mg/dL 7-21 H NITROGEN (BEAKER) (test code = 354) CREATININE 1.35 mg/dL 0.57-1.25 H (BEAKER) (test code = 358) GLUCOSE RANDOM 128 mg/dL 70-105 H (BEAKER) (test code = 652) CALCIUM (BEAKER) 9.5 mg/dL 8.4-10.2 (test code = 697) EGFR (BEAKER) 68 Interpretatio n of eGFR (test code = [...] not appl icable for dialysis patien ts Hand Slitter ID - [id number] 05:26:51 Test Item Value Reference Range Interpretation Comments MAGNESIUM (BEAKER) (test code = 2.4 mg/dL 1.6-2.6 627) Hand Slitter ID - TIMOPROTHROMBIN [id number] 05:00:06 Test Item Value Reference Range Interpretation Comments PROTIME (BEAKER) (test code = 15.3 seconds 11.9-14.2 H 759) INR (BEAKER) (test code = 370) 1.24 <=5.90 RECOMMENDED COUMADIN/WARFARIN INR THERAPY RANGESSTANDARD DOSE: 2.0 - 3.0 Includes: PROPHYLAXIS for venous thrombosis, systemic embolization; TREATMENT for venous thrombosis and/or pulmonary embolus.HIGH RISK: Target INR is 2.5-3.5 for patients with mechanical heart valves.LACTIC ACID, [id number] 04:57:58 Test Item Value Reference Range Interpretation Comments LACTATE BLOOD VENOUS (2) (BEAKER) 2.06 mmol/L 0.50-2.00 H (test code = 2872) Hand Slitter ID - DBCBC W/PLT COUNT & AUTO [id number] 04:48:35 Test Item Value Reference Range Interpretation Comments WHITE BLOOD CELL COUNT (BEAKER) 7.8 K/ L 3.5-10.5 (test code = 775) RED BLOOD CELL COUNT (BEAKER) 4.18 M/ L 4.63-6.08 L (test code = 761) HEMOGLOBIN (BEAKER) (test code = 11.3 GM/DL 13.7-17.5 L 410) HEMATOCRIT (BEAKER) (test code = 36.4 % 40.1-51.0 L 411) MEAN CORPUSCULAR VOLUME (BEAKER) 87 fL 79-92 (test code = 753) MEAN CORPUSCULAR HEMOGLOBIN 27.0 pg 25.7-32.2 (BEAKER) (test code = 751) MEAN CORPUSCULAR HEMOGLOBIN CONC 31.0 GM/DL 32.3-36.5 L (BEAKER) (test code = 752) RED CELL DISTRIBUTION WIDTH 14.2 % 11.6-14.4 (BEAKER) (test code = 412) PLATELET COUNT (BEAKER) (test 180 K/CU MM 150-450 code = 756) MEAN PLATELET VOLUME (BEAKER) 9.9 fL 9.4-12.4 (test code = 754) NUCLEATED RED BLOOD CELLS 0 /100 WBC 0-0 (BEAKER) (test code = 413) NEUTROPHILS RELATIVE PERCENT 65 % (BEAKER) (test code = 429) LYMPHOCYTES RELATIVE PERCENT 19 % (BEAKER) (test code = 430) MONOCYTES RELATIVE PERCENT 10 % (BEAKER) (test code = 431) EOSINOPHILS RELATIVE PERCENT 4 % (BEAKER) (test code = 432) BASOPHILS RELATIVE PERCENT 2 % (BEAKER) (test code = 437) NEUTROPHILS ABSOLUTE COUNT 5.02 K/ L 1.78-5.38 (BEAKER) (test code = 670) LYMPHOCYTES ABSOLUTE COUNT 1.49 K/ L 1.32-3.57 (BEAKER) (test code = 414) MONOCYTES ABSOLUTE COUNT (BEAKER) 0.79 K/ L 0.30-0.82 (test code = 415) EOSINOPHILS ABSOLUTE COUNT 0.32 K/ L 0.04-0.54 (BEAKER) (test code = 416) BASOPHILS ABSOLUTE COUNT (BEAKER) 0.12 K/ L 0.01-0.08 H (test code = 417) IMMATURE GRANULOCYTES-RELATIVE 0.30 % 0.00-1.00 PERCENT (BEAKER) (test code = 2801) CALCIUM, [id number] 04:43:36 Test Item Value Reference Range Interpretation Comments CALCIUM IONIZED (BEAKER) (test 1.08 mmol/L 1.12-1.27 L code = 698) PH, BLOOD (BEAKER) (test code = 7.46 1810) OXYGEN SATURATION, [id number] 04:41:59 Test Item Value Reference Range Interpretation Comments O2 SATURATION (MEASURED) (BEAKER) 74.9 % (test code = 1455) LACTIC ACID, [id number] 01:56:44 Test Item Value Reference Range Interpretation Comments LACTATE BLOOD VENOUS (2) (BEAKER) 1.42 mmol/L 0.50-2.00 (test code = 2872) Hand Slitter ID - [id number] 00:06:22 Test Item Value Reference Range Interpretation Comments PARTIAL THROMBOPLASTIN TIME 75.3 seconds 22.5-36.0 H (BEAKER) (test code = 760) POCT-GLUCOSE [id number] 21:24:49 Test Item Value Reference Range Interpretation Comments POC-GLUCOSE METER 179 mg/dL 70-110 H : Notified RN/MD: ([facility]) (test code = TESTED AT [facility] 5304 5151) [facility], [address]: Hand Slitter/Techni macrina ID = [id number] for LUC ZAMORA LACTIC ACID, [id number] 21:14:41 Test Item Value Reference Range Interpretation Comments LACTATE BLOOD VENOUS (2) (BEAKER) 3.21 mmol/L 0.50-2.00 H (test code = 0655) Hand Slitter ID - [id number] 20:46:03 Test Item Value Reference Range Interpretation Comments MAGNESIUM (BEAKER) (test code = 2.2 mg/dL 1.6-2.6 627) Hand Slitter ID - ADMINBASIC METABOLIC [id number] 20:46:02 Test Item Value Reference Range Interpretation Comments SODIUM (BEAKER) 137 meq/L 136-145 (test code = 381) POTASSIUM 3.7 meq/L 3.5-5.1 (BEAKER) (test code = 379) CHLORIDE (BEAKER) 98 meq/L 98-107 (test code = 382) CO2 (BEAKER) 27 meq/L 22-29 (test code = 355) BLOOD UREA 33 mg/dL 7-21 H NITROGEN (BEAKER) (test code = 354) CREATININE 1.44 mg/dL 0.57-1.25 H (BEAKER) (test code = 358) GLUCOSE RANDOM 170 mg/dL 70-105 H (BEAKER) (test code = 652) CALCIUM (BEAKER) 9.8 mg/dL 8.4-10.2 (test code = 697) EGFR (BEAKER) 63 Interpretatio n of eGFR (test code = [...] not appl icable for dialysis patien ts Hand Slitter ID - ADMINOXYGEN SATURATION, [id number] 20:27:15 Test Item Value Reference Range Interpretation Comments O2 SATURATION (MEASURED) (BEAKER) 72.4 % (test code = 1455) [id number] 17:41:58 Test Item Value Reference Range Interpretation Comments PARTIAL THROMBOPLASTIN TIME 59.0 seconds 22.5-36.0 H (BEAKER) (test code = 760) SERUM [id number] 16:40:37 Test Item Value Reference Range Interpretation Comments IMMUNOGLOBULIN A (IGA) 703 mg/dL 63-484 H (BEAKER) (test code = 639) IMMUNOGLOBULIN G (IGG) 1602 mg/dL 540-1822 (BEAKER) (test code = 427) IMMUNOGLOBULIN M (IGM) 96 mg/dL 22-293 (BEAKER) (test code = 638) SERUM IT ID Monoclonal 6144(BEAKER) (test code immunoglobulin is NOT = 3817) detected. [facility]-PATHOLOGIST-"LAB61 Portia Finn MD 44" ([facility]) (test code (electronic signature) = 3801) Clinical Finance Controller - SFOperator ID - BSPROTEIN ELECTROPHORESIS, SERUM WITH REFLEX TO [id number] 16:40:04 Test Item Value Reference Range Interpretation Comments ALBUMIN FRACTION 3.6 gm/dL 3.5-5.5 (BEAKER) (test code = 405) ALPHA 1 FRACTION 0.5 gm/dL 0.2-0.4 H (BEAKER) (test code = 389) ALPHA 2 FRACTION 0.9 gm/dL 0.4-1.0 (BEAKER) (test code = 390) BETA FRACTION 1.1 gm/dL 0.5-1.1 (BEAKER) (test code = 392) GAMMA GLOBULIN 1.4 gm/dL 0.7-1.6 FRACTION (BEAKER) (test code = 391) INTERPRETATION-119 There are questionable (BEAKER) (test code = areas in the alpha-2 and 2615) gamma region. Refer to serum immunotyping. [id number] Portia Finn MD ([facility]) (test code = (electronic signature) 2616) PROTEIN TOTAL SERUM, 7.6 gm/dL 6.0-8.3 SPEP (BEAKER) (test code = 2660) Clinical Finance Controller - SFOperator ID - BSOperator ID - ADMPOCT-GLUCOSE METER 2022-05-20 16:26:26 Test Item Value Reference Range Interpretation Comments POC-GLUCOSE METER 108 mg/dL 70-110 : TESTED A T [facility] 6720 (BEAKER) (test code = [place], 1538) [address]: Hand Slitter/Techni macrina ID = [id number] for ROSALIND CASTANEDAHTEE St HEPATIC FUNCTION [id number] 13:43:32 Test Item Value Reference Range Interpretation Comments TOTAL PROTEIN (BEAKER) (test code = 7.4 gm/dL 6.0-8.3 770) ALBUMIN (BEAKER) (test code = 1145) 3.4 g/dL 3.5-5.0 L BILIRUBIN TOTAL (BEAKER) (test code 0.5 mg/dL 0.2-1.2 = 377) BILIRUBIN DIRECT (BEAKER) (test 0.3 mg/dL 0.1-0.5 code = 706) ALKALINE PHOSPHATASE (BEAKER) (test 71 U/L 40-150 code = 346) AST (SGOT) (BEAKER) (test code = 38 U/L 5-34 H 353) ALT (SGPT) (BEAKER) (test code = 103 U/L 6-55 H 347) Hand Slitter ID - JSLACTIC ACID, [id number] 13:22:06 Test Item Value Reference Range Interpretation Comments LACTATE BLOOD VENOUS 2.00 mmol/L 0.50-2.00 Specime n moderately (2) (BEAKER) (test hemolyzed code = 6632) Hand Slitter ID - JSPOCT-GLUCOSE [id number] 11:27:34 Test Item Value Reference Range Interpretation Comments POC-GLUCOSE METER 138 mg/dL 70-110 H : TESTED A T [facility] 6720 (BEAKER) (test code = [place], 1538) [address]: Hand Slitter/Techni macrina ID = [id number] for THEE CHAVEZ [id number] 10:45:24 Test Item Value Reference Range Interpretation Comments PARTIAL THROMBOPLASTIN TIME 47.0 seconds 22.5-36.0 H (BEAKER) (test code = 760) BASIC METABOLIC [id number] 09:30:18 Test Item Value Reference Range Interpretation Comments SODIUM (BEAKER) 135 meq/L 136-145 L (test code = 381) POTASSIUM 4.2 meq/L 3.5-5.1 (BEAKER) (test code = 379) CHLORIDE (BEAKER) 99 meq/L 98-107 (test code = 382) CO2 (BEAKER) 25 meq/L 22-29 (test code = 355) BLOOD UREA 36 mg/dL 7-21 H NITROGEN (BEAKER) (test code = 354) CREATININE 1.41 mg/dL 0.57-1.25 H (BEAKER) (test code = 358) GLUCOSE RANDOM 158 mg/dL 70-105 H (BEAKER) (test code = 652) CALCIUM (BEAKER) 9.3 mg/dL 8.4-10.2 (test code = 697) EGFR (BEAKER) 65 Interpretatio n of eGFR (test code = mL/min/1.73 values Stage D escription 1092) sq m Result G1 Ana l [...] not appl icable for dialysis patien ts Hand Slitter ID - [id number] 09:29:07 Test Item Value Reference Range Interpretation Comments MAGNESIUM (BEAKER) (test code = 2.8 mg/dL 1.6-2.6 H 627) Hand Slitter ID - JSLACTIC ACID, [id number] 09:26:13 Test Item Value Reference Range Interpretation Comments LACTATE BLOOD VENOUS (2) (BEAKER) 2.66 mmol/L 0.50-2.00 H (test code = 2872) Hand Slitter ID - JSOXYGEN SATURATION, [id number] 09:17:42 Test Item Value Reference Range Interpretation Comments O2 SATURATION (MEASURED) (BEAKER) 70.8 % (test code = 1455) CBC (HEMOGRAM ONLY)2022-05-20 08:15:12 Test Item Value Reference Range Interpretation Comments WHITE BLOOD CELL COUNT (BEAKER) 7.9 K/ L 3.5-10.5 (test code = 775) RED BLOOD CELL COUNT (BEAKER) 4.20 M/ L 4.63-6.08 L (test code = 761) HEMOGLOBIN (BEAKER) (test code = 11.4 GM/DL 13.7-17.5 L 410) HEMATOCRIT (BEAKER) (test code = 36.8 % 40.1-51.0 L 411) MEAN CORPUSCULAR VOLUME (BEAKER) 88 fL 79-92 (test code = 753) MEAN CORPUSCULAR HEMOGLOBIN 27.1 pg 25.7-32.2 (BEAKER) (test code = 751) MEAN CORPUSCULAR HEMOGLOBIN CONC 31.0 GM/DL 32.3-36.5 L (BEAKER) (test code = 752) RED CELL DISTRIBUTION WIDTH 14.3 % 11.6-14.4 (BEAKER) (test code = 412) PLATELET COUNT (BEAKER) (test 179 K/CU MM 150-450 code = 756) MEAN PLATELET VOLUME (BEAKER) 9.5 fL 9.4-12.4 (test code = 754) NUCLEATED RED BLOOD CELLS 0 /100 WBC 0-0 (BEAKER) (test code = 413) POCT-GLUCOSE [id number] 07:41:57 Test Item Value Reference Range Interpretation Comments POC-GLUCOSE METER 95 mg/dL 70-110 : TESTED A T [facility] 6720 (AKER) (test code = [place], 1538) [address]: Hand Slitter/Techni macrina ID = [id number] for Kaye Beverly RAD, CHEST, 1 VIEW, NON [id number] 07:10:00Reason for exam:->IABPShould this be performed at the bedside?->Yes [facility]IF : 1980 Sex: MFINAL REPORT RAD, CHEST, 1 VIEW, NON DEPT INDICATION: IABP COMPARISON: Prior day's exam FINDINGS: Portable frontal view of the chest. IMPRESSION: Support Lines: Left axillary approach IABP with most cephalad marker projecting 2.0 cm below the aortic knob. [place] tip overlies the pulmonary outflow tract. Lungs and pleura: Lungs are clear. No significant pneumothorax. Heart and mediastinum: Stable contours. Stable surgical changes. Additional findings: None. Signed: Natalee Orta MDReport Verified Date/Time: 05/20/2022 07:10:17 [id number] 04:19:28 Test Item Value Reference Range Interpretation Comments PARTIAL THROMBOPLASTIN TIME 45.6 seconds 22.5-36.0 H (BEAKER) (test code = 760) LACTIC ACID, [id number] 03:10:23 Test Item Value Reference Range Interpretation Comments LACTATE BLOOD VENOUS (2) (BEAKER) < mmol/L 0.50-2.00 L (test code = 2872) Hand Slitter ID - RMBASIC METABOLIC [id number] 03:10:22 Test Item Value Reference Range Interpretation Comments SODIUM (BEAKER) 130 meq/L 136-145 L (test code = 381) POTASSIUM 3.4 meq/L 3.5-5.1 L (BEAKER) (test code = 379) CHLORIDE (BEAKER) 99 meq/L 98-107 (test code = 382) CO2 (BEAKER) 22 meq/L 22-29 (test code = 355) BLOOD UREA 33 mg/dL 7-21 H NITROGEN (BEAKER) (test code = 354) CREATININE 1.30 mg/dL 0.57-1.25 H (BEAKER) (test code = 358) GLUCOSE RANDOM 326 mg/dL 70-105 H (BEAKER) (test code = 652) CALCIUM (BEAKER) 7.8 mg/dL 8.4-10.2 L (test code = 697) EGFR (BEAKER) 71 Interpretatio n of eGFR (test code = [...] not appl icable for dialysis patien ts Hand Slitter BI [place] WHEPATIC FUNCTION [id number] 03:08:58 Test Item Value Reference Range Interpretation Comments TOTAL PROTEIN (BEAKER) (test code = 6.3 gm/dL 6.0-8.3 770) ALBUMIN (BEAKER) (test code = 1145) 3.0 g/dL 3.5-5.0 L BILIRUBIN TOTAL (BEAKER) (test code 0.6 mg/dL 0.2-1.2 = 377) BILIRUBIN DIRECT (BEAKER) (test 0.3 mg/dL 0.1-0.5 code = 706) ALKALINE PHOSPHATASE (BEAKER) (test 63 U/L 40-150 code = 346) AST (SGOT) (BEAKER) (test code = 34 U/L 5-34 353) ALT (SGPT) (BEAKER) (test code = 96 U/L 6-55 H 347) Hand Slitter BI [place] [id number] 03:08:57 Test Item Value Reference Range Interpretation Comments PHOSPHORUS (BEAKER) (test code = 3.8 mg/dL 2.3-4.7 604) Hand Slitter ID Michelle [place] [id number] 03:08:56 Test Item Value Reference Range Interpretation Comments MAGNESIUM (BEAKER) (test code = 1.8 mg/dL 1.6-2.6 627) Hand Slitter ID Michelle [place] [id number] 02:40:38 Test Item Value Reference Range Interpretation Comments PARTIAL THROMBOPLASTIN TIME 112.8 seconds 22.5-36.0 H (BEAKER) (test code = 760) PROTHROMBIN [id number] 02:35:47 Test Item Value Reference Range Interpretation Comments PROTIME (BEAKER) (test code = 21.0 seconds 11.9-14.2 H 759) INR (BEAKER) (test code = 370) 1.94 <=5.90 RECOMMENDED COUMADIN/WARFARIN INR THERAPY RANGESSTANDARD DOSE: 2.0 - 3.0 Includes: PROPHYLAXIS for venous thrombosis, systemic embolization; TREATMENT for venous thrombosis and/or pulmonary embolus.HIGH RISK: Target INR is 2.5-3.5 for patients with mechanical heart valves.CALCIUM, [id number] 02:32:29 Test Item Value Reference Range Interpretation Comments CALCIUM IONIZED (BEAKER) (test 1.11 mmol/L 1.12-1.27 L code = 698) PH, BLOOD (BEAKER) (test code = 7.45 1810) OXYGEN SATURATION, [id number] 02:30:06 Test Item Value Reference Range Interpretation Comments O2 SATURATION (MEASURED) (BEAKER) 65.1 % (test code = 1455) CBC W/PLT COUNT & AUTO [id number] 02:26:55 Test Item Value Reference Range Interpretation Comments WHITE BLOOD CELL COUNT (BEAKER) 7.5 K/ L 3.5-10.5 (test code = 775) RED BLOOD CELL COUNT (BEAKER) 3.48 M/ L 4.63-6.08 L (test code = 761) HEMOGLOBIN (BEAKER) (test code = 9.5 GM/DL 13.7-17.5 L 410) HEMATOCRIT (BEAKER) (test code = 30.3 % 40.1-51.0 L 411) MEAN CORPUSCULAR VOLUME (BEAKER) 87 fL 79-92 (test code = 753) MEAN CORPUSCULAR HEMOGLOBIN 27.3 pg 25.7-32.2 (BEAKER) (test code = 751) MEAN CORPUSCULAR HEMOGLOBIN CONC 31.4 GM/DL 32.3-36.5 L (BEAKER) (test code = 752) RED CELL DISTRIBUTION WIDTH 14.2 % 11.6-14.4 (BEAKER) (test code = 412) PLATELET COUNT (BEAKER) (test 144 K/CU MM 150-450 L code = 756) MEAN PLATELET VOLUME (BEAKER) 9.6 fL 9.4-12.4 (test code = 754) NUCLEATED RED BLOOD CELLS 0 /100 WBC 0-0 (BEAKER) (test code = 413) NEUTROPHILS RELATIVE PERCENT 64 % (BEAKER) (test code = 429) LYMPHOCYTES RELATIVE PERCENT 21 % (BEAKER) (test code = 430) MONOCYTES RELATIVE PERCENT 11 % (BEAKER) (test code = 431) EOSINOPHILS RELATIVE PERCENT 2 % (BEAKER) (test code = 432) BASOPHILS RELATIVE PERCENT 1 % (BEAKER) (test code = 437) NEUTROPHILS ABSOLUTE COUNT 4.79 K/ L 1.78-5.38 (BEAKER) (test code = 670) LYMPHOCYTES ABSOLUTE COUNT 1.59 K/ L 1.32-3.57 (BEAKER) (test code = 414) MONOCYTES ABSOLUTE COUNT (BEAKER) 0.82 K/ L 0.30-0.82 (test code = 415) EOSINOPHILS ABSOLUTE COUNT 0.15 K/ L 0.04-0.54 (BEAKER) (test code = 416) BASOPHILS ABSOLUTE COUNT (BEAKER) 0.10 K/ L 0.01-0.08 H (test code = 417) IMMATURE GRANULOCYTES-RELATIVE 0.40 % 0.00-1.00 PERCENT (BEAKER) (test code = 2801) RAD, CHEST, 1 VIEW, NON [id number] 22:38:00Reason for exam:->swan placementShould this be performed at the bedside?->Yes [facility] 1980 Sex: MFINAL REPORT RAD, CHEST, 1 VIEW, NON DEPT INDICATION: swan placement COMPARISON: Exam from one hour prior FINDINGS: Portable frontal view of the chest. IMPRESSION: Support Lines: The pulmonary arterial catheter has been retracted with the tip now overlying the proximal left pulmonary artery. Stable intra-aortic balloon pump marker. Lungs and pleura: Lungs are clear. No pneumothorax. Heart and mediastinum: Stable contours. Additional findings: None. Signed: Sydni Patino [facility] Verified Date/Time: 05/19/2022 22:38:54 POCT-GLUCOSE [id number] 21:51:42 Test Item Value Reference Range Interpretation Comments POC-GLUCOSE METER 126 mg/dL 70-110 H : TESTED A T [facility] 6720 (MIA) (test code = [place], 1538) [address]: Hand Slitter/Techni macrina ID = [id number] for Hung Back RAD, CHEST, 1 VIEW, NON [id number] 21:27:00Reason for exam:->swan placementShould this be performed at the bedside?->Yes [facility] 1980 Sex: MFINAL REPORT RAD, CHEST, 1 VIEW, NON DEPT INDICATION: swan placement COMPARISON: Prior day's exam FINDINGS: Portable frontal view of the chest. IMPRESSION: Support Lines: The pulmonaryarterial catheter loops within the pulmonary trunk with the tip extending into the distal left pulmonary artery. Intra-aortic balloon marker terminates 2.2 cm caudal to the superior margin of the aortic arch. Lungs and pleura: No focal consolidation or sizable effusion. No pneumothorax. Heart and mediastinum: Stable contours. Additional findings: None. Signed: Sydni Paitno MDReport Verified Date/Time: 05/19/2022 21:27:21 VANCOMYCIN LEVEL, [id number] 20:48:57 Test Item Value Reference Range Interpretation Comments VANCOMYCIN TROUGH (EMMAAKER) (test 4.9 ug/mL 10.0-20.0 L code = 522) Hand Slitter ID - RMBASIC METABOLIC [id number] 20:15:35 Test Item Value Reference Range Interpretation Comments SODIUM (BEAKER) 133 meq/L 136-145 L (test code = 381) POTASSIUM 4.3 meq/L 3.5-5.1 (BEAKER) (test code = 379) CHLORIDE (BEAKER) 94 meq/L 98-107 L (test code = 382) CO2 (BEAKER) 25 meq/L 22-29 (test code = 355) BLOOD UREA 41 mg/dL 7-21 H NITROGEN (BEAKER) (test code = 354) CREATININE 1.56 mg/dL 0.57-1.25 H (BEAKER) (test code = 358) GLUCOSE RANDOM 116 mg/dL 70-105 H (BEAKER) (test code = 652) CALCIUM (BEAKER) 9.8 mg/dL 8.4-10.2 (test code = 697) EGFR (BEAKER) 57 Interpretatio n of eGFR (test code = [...] not appl icable for dialysis patien ts Hand Slitter ID - [id number] 20:15:35 Test Item Value Reference Range Interpretation Comments MAGNESIUM (BEAKER) (test code = 2.3 mg/dL 1.6-2.6 627) Hand Slitter ID - RMLACTIC ACID, [id number] 20:11:13 Test Item Value Reference Range Interpretation Comments LACTATE BLOOD VENOUS (2) (BEAKER) 1.66 mmol/L 0.50-2.00 (test code = 2872) Hand Slitter ID - RMOXYGEN SATURATION, [id number] 20:02:23 Test Item Value Reference Range Interpretation Comments O2 SATURATION (MEASURED) (BEAKER) 95.5 % (test code = 1455) [id number] 18:58:10 Test Item Value Reference Range Interpretation Comments PARTIAL THROMBOPLASTIN TIME 65.7 seconds 22.5-36.0 H (BEAKER) (test code = 760) POCT-GLUCOSE [id number] 15:56:31 Test Item Value Reference Range Interpretation Comments POC-GLUCOSE METER 125 mg/dL 70-110 H : TESTED A T [facility] 6720 (BEAKER) (test code = [place], 1538) [address]: Hand Slitter/Techni macrina ID = [id number] for THEE CHAVEZ [id number] 12:17:55 Test Item Value Reference Range Interpretation Comments MAGNESIUM (BEAKER) (test code = 2.3 mg/dL 1.6-2.6 627) Hand Slitter ID - RMBASIC METABOLIC [id number] 12:17:54 Test Item Value Reference Range Interpretation Comments SODIUM (BEAKER) 135 meq/L 136-145 L (test code = 381) POTASSIUM 3.7 meq/L 3.5-5.1 (BEAKER) (test code = 379) CHLORIDE (BEAKER) 96 meq/L 98-107 L (test code = 382) CO2 (BEAKER) 25 meq/L 22-29 (test code = 355) BLOOD UREA 43 mg/dL 7-21 H NITROGEN (BEAKER) (test code = 354) CREATININE 1.55 mg/dL 0.57-1.25 H (BEAKER) (test code = 358) GLUCOSE RANDOM 110 mg/dL 70-105 H (BEAKER) (test code = 652) CALCIUM (BEAKER) 9.8 mg/dL 8.4-10.2 (test code = 697) EGFR (BEAKER) 58 Interpretati on of eGFR (test code = mL/min/1.73 values [...] not appl icable for dialysis patien ts Hand Slitter ID - [id number] 12:12:51 Test Item Value Reference Range Interpretation Comments PARTIAL THROMBOPLASTIN TIME 87.3 seconds 22.5-36.0 H (MIA) (test code = 760) LACTIC ACID, [id number] 11:48:09 Test Item Value Reference Range Interpretation Comments LACTATE BLOOD VENOUS 1.32 mmol/L 0.50-2.00 Specime n slightly (2) (MIA) (test hemolyzed code = 2872) Hand Slitter ID - CECE GPOCT-GLUCOSE [id number] 11:25:32 Test Item Value Reference Range Interpretation Comments POC-GLUCOSE METER 119 mg/dL 70-110 H : TESTED A T [facility] 6720 (MIA) (test code = [place], 1538) [address]: Hand Slitter/Techni macrina ID = [id number] for THEE CHAVEZ OXYGEN SATURATION, [id number] 11:21:25 Test Item Value Reference Range Interpretation Comments O2 SATURATION (MEASURED) (MIA) 78.1 % (test code = 1455) RAD, CHEST, 1 VIEW, NON [id number] 08:31:00Reason for exam:->IABPShould this be performed at the bedside?->Yes [facility] [place] : 1980 Sex: MFINAL REPORT RAD, CHEST, 1 VIEW, NON DEPT INDICATION: IABP COMPARISON: Prior day's exam FINDINGS: Portable frontal view of the chest. IMPRESSION: Support Lines: Left axillary approach IABP with most cephalad marker projecting 2.4 cm below the aortic knob. [place] tip overlies a leftsegmental pulmonary artery, unchanged from prior exam. Retraction by 3 cm may be considered. Lungs and pleura: Lungs are clear. No significant pneumothorax. Heart and mediastinum: Stable contours. Stable surgical changes. Additional findings: None. Signed: Natalee Orta MDReport Verified Date/Time: 05/19/2022 08:31:21 POCT-GLUCOSE METER 2022-05-19 07:27:41 Test Item Value Reference Range Interpretation Comments POC-GLUCOSE METER 137 mg/dL 70-110 H : [facility] ([facility] (test code = [place], 1538) [address]: Hand Slitter/Techni macrina ID = [id number] for THEE CHAVEZ [id number] 04:19:18 Test Item Value Reference Range Interpretation Comments PARTIAL THROMBOPLASTIN TIME 89.4 seconds 22.5-36.0 H (BEAKER) (test code = 760) [id number] 02:55:17 Test Item Value Reference Range Interpretation Comments MAGNESIUM (BEAKER) (test code = 2.4 mg/dL 1.6-2.6 627) Hand Slitter ID - CECE [id number] 02:55:17 Test Item Value Reference Range Interpretation Comments PHOSPHORUS (BEAKER) (test code = 4.4 mg/dL 2.3-4.7 604) Hand Slitter ID - CECE GHEPATIC FUNCTION [id number] 02:55:17 Test Item Value Reference Range Interpretation Comments TOTAL PROTEIN (BEAKER) (test code = 8.4 gm/dL 6.0-8.3 H 770) ALBUMIN (BEAKER) (test code = 1145) 3.9 g/dL 3.5-5.0 BILIRUBIN TOTAL (BEAKER) (test code 0.6 mg/dL 0.2-1.2 = 377) BILIRUBIN DIRECT (BEAKER) (test 0.3 mg/dL 0.1-0.5 code = 706) ALKALINE PHOSPHATASE (BEAKER) (test 84 U/L 40-150 code = 346) AST (SGOT) (BEAKER) (test code = 89 U/L 5-34 H 353) ALT (SGPT) (BEAKER) (test code = 172 U/L 6-55 H 347) Hand Slitter ID - CECE GBASIC METABOLIC [id number] 02:55:16 Test Item Value Reference Range Interpretation Comments SODIUM (BEAKER) 135 meq/L 136-145 L (test code = 381) POTASSIUM 3.7 meq/L 3.5-5.1 (BEAKER) (test code = 379) CHLORIDE (BEAKER) 97 meq/L 98-107 L (test code = 382) CO2 (BEAKER) 24 meq/L 22-29 (test code = 355) BLOOD UREA 48 mg/dL 7-21 H NITROGEN (BEAKER) (test code = 354) CREATININE 1.57 mg/dL 0.57-1.25 H (BEAKER) (test code = 358) GLUCOSE RANDOM 131 mg/dL 70-105 H (BEAKER) (test code = 652) CALCIUM (BEAKER) 9.7 mg/dL 8.4-10.2 (test code = 697) EGFR (BEAKER) 57 Interpretatio n of eGFR (test code = [...] not appl icable for dialysis patien ts Hand Slitter ID - CECE GPROTHROMBIN [id number] 02:49:33 Test Item Value Reference Range Interpretation Comments PROTIME (BEAKER) (test code = 16.6 seconds 11.9-14.2 H 759) INR (BEAKER) (test code = 370) 1.43 <=5.90 RECOMMENDED COUMADIN/WARFARIN INR THERAPY RANGESSTANDARD DOSE: 2.0 - 3.0 Includes: PROPHYLAXIS for venous thrombosis, systemic embolization; TREATMENT for venous thrombosis and/or pulmonary embolus.HIGH RISK: Target INR is 2.5-3.5 for patients with mechanical heart valves.LACTIC ACID, [id number] 02:45:36 Test Item Value Reference Range Interpretation Comments LACTATE BLOOD VENOUS 1.62 mmol/L 0.50-2.00 Specime n slightly (2) (BEAKER) (test hemolyzed code = 2872) Hand Slitter ID - EDCALCIUM, [id number] 02:37:14 Test Item Value Reference Range Interpretation Comments CALCIUM IONIZED (BEAKER) (test 1.09 mmol/L 1.12-1.27 L code = 698) PH, BLOOD (BEAKER) (test code = 7.47 1810) CBC W/PLT COUNT & AUTO [id number] 02:35:59 Test Item Value Reference Range Interpretation Comments WHITE BLOOD CELL COUNT (BEAKER) 10.8 K/ L 3.5-10.5 H (test code = 775) RED BLOOD CELL COUNT (BEAKER) 4.39 M/ L 4.63-6.08 L (test code = 761) HEMOGLOBIN (BEAKER) (test code = 12.2 GM/DL 13.7-17.5 L 410) HEMATOCRIT (BEAKER) (test code = 37.3 % 40.1-51.0 L 411) MEAN CORPUSCULAR VOLUME (BEAKER) 85 fL 79-92 (test code = 753) MEAN CORPUSCULAR HEMOGLOBIN 27.8 pg 25.7-32.2 (BEAKER) (test code = 751) MEAN CORPUSCULAR HEMOGLOBIN CONC 32.7 GM/DL 32.3-36.5 (BEAKER) (test code = 752) RED CELL DISTRIBUTION WIDTH 14.1 % 11.6-14.4 (BEAKER) (test code = 412) PLATELET COUNT (BEAKER) (test 181 K/CU MM 150-450 code = 756) MEAN PLATELET VOLUME (BEAKER) 9.6 fL 9.4-12.4 (test code = 754) NUCLEATED RED BLOOD CELLS 0 /100 WBC 0-0 (BEAKER) (test code = 413) NEUTROPHILS RELATIVE PERCENT 76 % (BEAKER) (test code = 429) LYMPHOCYTES RELATIVE PERCENT 14 % (BEAKER) (test code = 430) MONOCYTES RELATIVE PERCENT 9 % (BEAKER) (test code = 431) EOSINOPHILS RELATIVE PERCENT 0 % (BEAKER) (test code = 432) BASOPHILS RELATIVE PERCENT 1 % (BEAKER) (test code = 437) NEUTROPHILS ABSOLUTE COUNT 8.21 K/ L 1.78-5.38 H (BEAKER) (test code = 670) LYMPHOCYTES ABSOLUTE COUNT 1.46 K/ L 1.32-3.57 (BEAKER) (test code = 414) MONOCYTES ABSOLUTE COUNT (BEAKER) 0.99 K/ L 0.30-0.82 H (test code = 415) EOSINOPHILS ABSOLUTE COUNT 0.04 K/ L 0.04-0.54 (BEAKER) (test code = 416) BASOPHILS ABSOLUTE COUNT (BEAKER) 0.10 K/ L 0.01-0.08 H (test code = 417) IMMATURE GRANULOCYTES-RELATIVE 0.40 % 0.00-1.00 PERCENT (BEAKER) (test code = 2801) OXYGEN SATURATION, [id number] 02:34:31 Test Item Value Reference Range Interpretation Comments O2 SATURATION (MEASURED) (BEAKER) 62.2 % (test code = 1455) POCT-GLUCOSE [id number] 22:12:58 Test Item Value Reference Range Interpretation Comments POC-GLUCOSE METER 116 mg/dL 70-110 H : TESTED A T [facility] 67[address] (BEAKER) (test code = [place], 1538) [address]: Hand Slitter/Techni macrina ID = [id number] for Hung Back OXYGEN SATURATION, [id number] 21:01:29 Test Item Value Reference Range Interpretation Comments O2 SATURATION (MEASURED) (BEAKER) 62.0 % (test code = 1455) BASIC METABOLIC [id number] 21:01:03 Test Item Value Reference Range Interpretation Comments SODIUM (BEAKER) 135 meq/L 136-145 L (test code = 381) POTASSIUM 3.5 meq/L 3.5-5.1 (BEAKER) (test code = 379) CHLORIDE (BEAKER) 96 meq/L 98-107 L (test code = 382) CO2 (BEAKER) 25 meq/L 22-29 (test code = 355) BLOOD UREA 48 mg/dL 7-21 H NITROGEN (BEAKER) (test code = 354) CREATININE 1.65 mg/dL 0.57-1.25 H (BEAKER) (test code = 358) GLUCOSE RANDOM 138 mg/dL 70-105 H (MIA) (test code = 652) CALCIUM (EMMAAKER) 9.6 mg/dL 8.4-10.2 (test code = 697) EGFR (MIA) 53 Interpretatio n of eGFR (test code [...] not appl icable for dialysis patien ts Hand Slitter ID - [id number] 21:01:03 Test Item Value Reference Range Interpretation Comments MAGNESIUM (MIA) (test code = 2.5 mg/dL 1.6-2.6 627) Hand Slitter ID - [id number] 20:54:22 Test Item Value Reference Range Interpretation Comments PARTIAL THROMBOPLASTIN TIME 82.5 seconds 22.5-36.0 H (MIA) (test code = 760) LACTIC ACID, [id number] 20:54:01 Test Item Value Reference Range Interpretation Comments LACTATE BLOOD VENOUS 1.34 mmol/L 0.50-2.00 Specime n slightly (2) (MIA) (test hemolyzed code = 2872) Hand Slitter ID - edPOCT-GLUCOSE [id number] 16:23:16 Test Item Value Reference Range Interpretation Comments POC-GLUCOSE METER 115 mg/dL 70-110 H : Notified RN/MD: (MIA) (test code = TESTED AT [facility] [address] 6306) [place], [address]: Hand Slitter/Techni macrina ID = [id number] for Tr Monica hickman U/S, EXTREMITY (NON-VASCULAR), LEFT, [id number] 14:50:00Reason for exam:- >Evaluate [facility] hemat[facility] 1980 Sex: MFINAL REPORT U/S, EXTREMITY (NON-VASCULAR), LEFT, LIMITED CLINICAL HISTORY: Evaluatefor hematoma COMPARISON: None. TECHNIQUE: Real time grayscale, color Doppler, and cine images of thearea of concern were obtained. FINDINGS: Targeted sonography of the left arm in the area of the patient's concern demonstrates no discrete mass or fluid collection. IMPRESSION: No discrete mass or hematoma corresponding to the patient's palpable abnormality in the left arm . Signed: Patricia Gutierrez Verified Date/Time: 05/18/2022 14:50:38 Reading Location: [address] Transitional Reading Room [id number] 14:41:04 Test Item Value Reference Range Interpretation Comments MAGNESIUM (BEAKER) 2.4 mg/dL 1.6-2.6 Specimen slightly (test code = 627) hemolyzed Hand Slitter ID - EDBASIC METABOLIC [id number] 14:41:04 Test Item Value Reference Range Interpretation Comments SODIUM (BEAKER) 134 meq/L 136-145 L (test code = 381) POTASSIUM 3.6 meq/L 3.5-5.1 Specimen slight ly (BEAKER) (test hemolyzed code = 379) CHLORIDE (BEAKER) 93 meq/L 98-107 L (test code = 382) CO2 (BEAKER) 24 meq/L 22-29 (test code = 355) BLOOD UREA 54 mg/dL 7-21 H NITROGEN (BEAKER) (test code = 354) CREATININE 1.79 mg/dL 0.57-1.25 H Specimen slight ly (BEAKER) (test hemolyzed code = 358) GLUCOSE RANDOM 144 mg/dL 70-105 H (BEAKER) (test code = 652) CALCIUM (BEAKER) 9.8 mg/dL 8.4-10.2 (test code = 697) EGFR (BEAKER) 48 Interpretatio n of eGFR (test code = [...] not appl icable for dialysis patien ts Hand Slitter ID - EDU/S, RENAL, [id number] 14:30:00Reason for exam:- >Transplant/VAD Evaluation [facility] 1980 Sex: MFINAL REPORT U/S, RENAL, COMPLETE CLINICAL HISTORY: Transplant/VAD Evaluation COMPARISON: CT of the abdomen and pelvis 05/02/2022 TECHNIQUE: Real time grayscale and color Doppler imagingof the kidneys and urinary bladder was performed. FINDINGS: Right kidney:Length = 9.6 x 5.2 x 4.9 cmCortical thickness: NormalEchogenicity: NormalCollecting system: No hydronephrosisOther findings: None Left kidney:Length = 13.4 x 5.8 x 5.3 cmCortical thickness: NormalEchogenicity: NormalCollecting system: No hydronephrosisOther findings: None Urinary bladder: Normally distended IMPRESSION: Normal renal ultrasound. No hydronephrosis. Signed: Patricia Gutierrez Verified Date/Time: 05/18/2022 14:30:00 Reading Location: [address] Reading Room [id number] 13:55:45 Test Item Value Reference Range Interpretation Comments PARTIAL THROMBOPLASTIN TIME 84.4 seconds 22.5-36.0 H (BEAKER) (test code = 760) LACTIC ACID, [id number] 13:54:40 Test Item Value Reference Range Interpretation Comments LACTATE BLOOD VENOUS (2) (BEAKER) 2.10 mmol/L 0.50-2.00 H (test code = 2872) Hand Slitter ID - EDOXYGEN SATURATION, [id number] 13:28:48 Test Item Value Reference Range Interpretation Comments O2 SATURATION (MEASURED) (BEAKER) 68.8 % (test code = 1455) POCT-GLUCOSE [id number] 10:54:42 Test Item Value Reference Range Interpretation Comments POC-GLUCOSE METER 171 mg/dL 70-110 H : TESTED A T [facility] 6720 (simpleFLOORS) (test code = [facility] [email or web address] [facility], 1538) [address]: Hand Slitter/Techni macrina ID = [id number] for FO X, ROSALVA POCT-GLUCOSE [id number] 08:31:24 Test Item Value Reference Range Interpretation Comments POC-GLUCOSE METER 126 mg/dL 70-110 H : TESTED A T [facility] 6720 (BEAKER) (test code = [facility] [email or web address] [facility], 1538) [address]: Hand Slitter/Techni macrina ID = [id number] for FO X, ROSALVA RAD, CHEST, 1 VIEW, NON [id number] 08:22:00Reason for exam:->IABPShould this be performed at the bedside?->Yes [facility] : 1980 Sex: MFINAL REPORT RAD, CHEST, 1 VIEW, NON DEPT INDICATION: IABP COMPARISON: Prior day's exam FINDINGS: Portable frontal view of the chest. IMPRESSION: Support Lines: Left axillary approach IABP with most cephalad marker projecting 2.4 cm below the aortic knob. [place] tip overlies a left segmental pulmonary artery, unchanged from prior exam. Retraction by 3 cm may be considered. Lungs and pleura: Lungs are clear. No significant pneumothorax. Heart and mediastinum: Stable contours. Stable surgical changes. Additional findings: None. Signed: Natalee Orta MDReport Verified Date/Time: 05/18/2022 08:22:34 [id number] 06:50:42 Test Item Value Reference Range Interpretation Comments PARTIAL THROMBOPLASTIN TIME 62.3 seconds 22.5-36.0 H (BEAKER) (test code = 760) OXYGEN SATURATION, [id number] 04:24:07 Test Item Value Reference Range Interpretation Comments O2 SATURATION (MEASURED) (BEAKER) 59.4 % (test code = 1455) HEPATIC FUNCTION [id number] 04:01:23 Test Item Value Reference Range Interpretation Comments TOTAL PROTEIN (BEAKER) (test code = 9.2 gm/dL 6.0-8.3 H 770) ALBUMIN (BEAKER) (test code = 1145) 4.1 g/dL 3.5-5.0 BILIRUBIN TOTAL (BEAKER) (test code 0.8 mg/dL 0.2-1.2 = 377) BILIRUBIN DIRECT (BEAKER) (test 0.4 mg/dL 0.1-0.5 code = 706) ALKALINE PHOSPHATASE (BEAKER) (test 85 U/L 40-150 code = 346) AST (SGOT) (BEAKER) (test code = 64 U/L 5-34 H 353) ALT (SGPT) (BEAKER) (test code = 124 U/L 6-55 H 347) Hand Slitter ID - [id number] 04:01:22 Test Item Value Reference Range Interpretation Comments MAGNESIUM (BEAKER) (test code = 2.4 mg/dL 1.6-2.6 627) Hand Slitter ID - [id number] 04:01:22 Test Item Value Reference Range Interpretation Comments PHOSPHORUS (BEAKER) (test code = 6.1 mg/dL 2.3-4.7 H 604) Hand Slitter ID - MARCOBASIC METABOLIC [id number] 04:01:21 Test Item Value Reference Range Interpretation Comments SODIUM (BEAKER) 135 meq/L 136-145 L (test code = 381) POTASSIUM 3.7 meq/L 3.5-5.1 (BEAKER) (test code = 379) CHLORIDE (BEAKER) 94 meq/L 98-107 L (test code = 382) CO2 (BEAKER) 22 meq/L 22-29 (test code = 355) BLOOD UREA 51 mg/dL 7-21 H NITROGEN (BEAKER) (test code = 354) CREATININE 1.98 mg/dL 0.57-1.25 H (BEAKER) (test code = 358) GLUCOSE RANDOM 166 mg/dL 70-105 H (BEAKER) (test code = 652) CALCIUM (BEAKER) 10.4 mg/dL 8.4-10.2 H (test code = 697) EGFR (BEAKER) 43 Interpretatio n of eGFR (test code = mL/min/1.73 values Stage De scription 1092) sq m Result G1 Ana l or high >=90 G2 Mildly decreased 60-89 G3a Mildl y to moderately 45-5 9 G3b Moderately to s everely 30-44 G4 Severl y decreased 15-29 G5 Kidney failure <15Reported eGF R is based on the CKD-EPI 1 equation that d oes not use a race coefficientEsti mated GFR is not as accur ate as Creatinine Cathy melodie in predicting glom erular filtration rate . Estimated GFR is not appl icable for dialysis patien ts Hand Slitter ID - MARCOPROTHROMBIN TIME/[id number] 03:48:38 Test Item Value Reference Range Interpretation Comments PROTIME (BEAKER) (test code = 16.2 seconds 11.9-14.2 H 759) INR (BEAKER) (test code = 370) 1.33 <=5.90 RECOMMENDED COUMADIN/WARFARIN INR THERAPY RANGESSTANDARD DOSE: 2.0 - 3.0 Includes: PROPHYLAXIS for venous thrombosis, systemic embolization; TREATMENT for venous thrombosis and/or pulmonary embolus.HIGH RISK: Target INR is 2.5-3.5 for patients with mechanical heart valves.LACTIC ACID, [id number] 03:46:57 Test Item Value Reference Range Interpretation Comments LACTATE BLOOD VENOUS 2.35 mmol/L 0.50-2.00 H Specime n slightly (2) (BEAKER) (test hemolyzed code = 2872) Hand Slitter ID - BSCBC W/PLT COUNT & AUTO [id number] 03:45:22 Test Item Value Reference Range Interpretation Comments WHITE BLOOD CELL COUNT (BEAKER) 8.6 K/ L 3.5-10.5 (test code = 775) RED BLOOD CELL COUNT (BEAKER) 4.76 M/ L 4.63-6.08 (test code = 761) HEMOGLOBIN (BEAKER) (test code = 12.6 GM/DL 13.7-17.5 L 410) HEMATOCRIT (BEAKER) (test code = 39.5 % 40.1-51.0 L 411) MEAN CORPUSCULAR VOLUME (BEAKER) 83 fL 79-92 (test code = 753) MEAN CORPUSCULAR HEMOGLOBIN 26.5 pg 25.7-32.2 (BEAKER) (test code = 751) MEAN CORPUSCULAR HEMOGLOBIN CONC 31.9 GM/DL 32.3-36.5 L (BEAKER) (test code = 752) RED CELL DISTRIBUTION WIDTH 13.9 % 11.6-14.4 (BEAKER) (test code = 412) PLATELET COUNT (BEAKER) (test 227 K/CU MM 150-450 code = 756) MEAN PLATELET VOLUME (BEAKER) 9.3 fL 9.4-12.4 L (test code = 754) NUCLEATED RED BLOOD [...] (test code = 437) NEUTROPHILS ABSOLUTE COUNT 7.71 K/ L 1.78-5.38 H (BEAKER) (test code = 670) LYMPHOCYTES ABSOLUTE COUNT 0.52 K/ L 1.32-3.57 L (BEAKER) (test code = 414) MONOCYTES ABSOLUTE COUNT (BEAKER) 0.32 K/ L 0.30-0.82 (test code = 415) EOSINOPHILS ABSOLUTE COUNT 0.00 K/ L 0.04-0.54 L (BEAKER) (test code = 416) BASOPHILS ABSOLUTE COUNT (BEAKER) 0.02 K/ L 0.01-0.08 (test code = 417) IMMATURE GRANULOCYTES-RELATIVE 0.30 % 0.00-1.00 PERCENT (BEAKER) (test code = 2801) CALCIUM, [id number] 03:38:53 Test Item Value Reference Range Interpretation Comments CALCIUM IONIZED (BEAKER) (test 1.11 mmol/L 1.12-1.27 L code = 698) PH, BLOOD (BEAKER) (test code = 7.46 1810) OXYGEN SATURATION, [id number] 03:37:32 Test Item Value Reference Range Interpretation Comments O2 SATURATION (MEASURED) (BEAKER) 58.4 % (test code = 1455) [id number] 23:35:06 Test Item Value Reference Range Interpretation Comments MAGNESIUM (BEAKER) 2.2 mg/dL 1.6-2.6 Specimen slightly (test code = 627) hemolyzed Hand Slitter ID - [id number] 23:35:06 Test Item Value Reference Range Interpretation Comments POTASSIUM (BEAKER) 3.7 meq/L 3.5-5.1 Specimen slightly (test code = 379) hemolyzed Hand Slitter ID - BSLACTIC ACID, [id number] 23:25:04 Test Item Value Reference Range Interpretation Comments LACTATE BLOOD VENOUS 2.47 mmol/L 0.50-2.00 H Specime n moderately (2) (BEAKER) (test hemolyzed code = 6184) Hand Slitter ID - BSCALCIUM, [id number] 23:22:51 Test Item Value Reference Range Interpretation Comments CALCIUM IONIZED (BEAKER) (test 1.11 mmol/L 1.12-1.27 L code = 698) PH, BLOOD (BEAKER) (test code = 7.45 1810) OXYGEN SATURATION, [id number] 23:16:02 Test Item Value Reference Range Interpretation Comments O2 SATURATION (MEASURED) (BEAKER) 64.2 % (test code = 1455) POCT-GLUCOSE [id number] 21:42:23 Test Item Value Reference Range Interpretation Comments POC-GLUCOSE METER 209 mg/dL 70-110 H : [facility] [place] (BEAKER) (test code = [place], 1538) [address]: Hand Slitter/Techni macrina ID = [id number] for Hung Back CBC W/PLT COUNT & AUTO [id number] 21:18:28 Test Item Value Reference Range Interpretation Comments WHITE BLOOD CELL COUNT (BEAKER) 8.0 K/ L 3.5-10.5 (test code = 775) RED BLOOD CELL COUNT (BEAKER) 4.70 M/ L 4.63-6.08 (test code = 761) HEMOGLOBIN (BEAKER) (test code = 12.9 GM/DL 13.7-17.5 L 410) HEMATOCRIT (BEAKER) (test code = 40.4 % 40.1-51.0 411) MEAN CORPUSCULAR VOLUME (BEAKER) 86 fL 79-92 (test code = 753) MEAN CORPUSCULAR HEMOGLOBIN 27.4 pg 25.7-32.2 (BEAKER) (test code = 751) MEAN CORPUSCULAR HEMOGLOBIN CONC 31.9 GM/DL 32.3-36.5 L (BEAKER) (test code = 752) RED CELL DISTRIBUTION WIDTH 13.9 % 11.6-14.4 (BEAKER) (test code = 412) PLATELET COUNT (BEAKER) (test 223 K/CU MM 150-450 code = 756) MEAN PLATELET VOLUME (BEAKER) 9.4 fL 9.4-12.4 (test code = 754) NUCLEATED RED BLOOD CELLS 0 /100 WBC 0-0 (BEAKER) (test code = 413) NEUTROPHILS RELATIVE PERCENT 93 % (BEAKER) (test code = 429) LYMPHOCYTES RELATIVE PERCENT 5 % (BEAKER) (test code = 430) MONOCYTES RELATIVE PERCENT 1 % (BEAKER) (test code = 431) EOSINOPHILS RELATIVE PERCENT 0 % (BEAKER) (test code = 432) BASOPHILS RELATIVE PERCENT 0 % (BEAKER) (test code = 437) NEUTROPHILS ABSOLUTE COUNT 7.45 K/ L 1.78-5.38 H (BEAKER) (test code = 670) LYMPHOCYTES ABSOLUTE COUNT 0.40 K/ L 1.32-3.57 L (BEAKER) (test code = 414) MONOCYTES ABSOLUTE COUNT (BEAKER) 0.11 K/ L 0.30-0.82 L (test code = 415) EOSINOPHILS ABSOLUTE COUNT 0.01 K/ L 0.04-0.54 L (BEAKER) (test code = 416) BASOPHILS ABSOLUTE COUNT (BEAKER) 0.01 K/ L 0.01-0.08 (test code = 417) IMMATURE GRANULOCYTES-RELATIVE 0.50 % 0.00-1.00 PERCENT (BEAKER) (test code = 2801) BASIC METABOLIC [id number] 20:47:51 Test Item Value Reference Range Interpretation Comments SODIUM (BEAKER) 135 meq/L 136-145 L (test code = 381) POTASSIUM 3.9 meq/L 3.5-5.1 Specimen slight ly (BEAKER) (test hemolyzed code = 379) CHLORIDE (BEAKER) 96 meq/L 98-107 L (test code = 382) CO2 (BEAKER) 21 meq/L 22-29 L (test code = 355) BLOOD UREA 40 mg/dL 7-21 H NITROGEN (BEAKER) (test code = 354) CREATININE 1.96 mg/dL 0.57-1.25 H Specimen slight ly (BEAKER) (test hemolyzed code = 358) GLUCOSE RANDOM 222 mg/dL 70-105 H (BEAKER) (test code = 652) CALCIUM (BEAKER) 10.1 mg/dL 8.4-10.2 (test code = 697) EGFR (BEAKER) 43 Interpretatio n of eGFR (test code = [...] not appl icable for dialysis patien ts Hand Slitter ID - [id number] 20:47:50 Test Item Value Reference Range Interpretation Comments MAGNESIUM (BEAKER) 2.3 mg/dL 1.6-2.6 Specimen slightly (test code = 627) hemolyzed Hand Slitter ID - BSLACTIC ACID, [id number] 20:46:18 Test Item Value Reference Range Interpretation Comments LACTATE BLOOD VENOUS 4.48 mmol/L 0.50-2.00 HH Specime n slightly (2) (BEAKER) (test hemolyzed code = 2872) Hand Slitter ID - BSOXYGEN SATURATION, [id number] 20:18:27 Test Item Value Reference Range Interpretation Comments O2 SATURATION (MEASURED) (BEAKER) 59.3 % (test code = 1455) CT, BRAIN, WITHOUT [id number] 19:17:00Reason for Exam (Free Text) - Addiitonal information for Radiologist->Transplant/VAD Evaluation [facility] : 1980 Sex: MFINAL REPORT CT, BRAIN, WITHOUT CONTRAST CLINICAL INDICATION: Unlisted Reason for Exam, transplant evaluation COMPARISON: None TECHNIQUE: Noncontrast axial CT imaging of the brain, skull and face. Coronal and sagittal reformats are provided. DOSE REDUCTION: Dose modulation, iterative reconstruction, and/or weight-based adjustment of the mA/kV was utilized to reduce the radiation dose t o as low as reasonably achievable. FINDINGS: No intracranial hemorrhage, midline shift or mass effect. Midline structures are normally developed. Mild generalized parenchymal volume loss is present. Nohydrocephalus. Orbits are within normal limits. No obstructive paranasal sinus disease. No calvarial fracture. No significant soft tissue swelling. IMPRESSION: No acute intracranial findings Signed: Timur Vazquez MDReport Verified Date/Time: 05/17/2022 19:17:32 TININE [id number] 19:09:57 Test Item Value Reference Range Interpretation Comments CREATININE CLEARANCE (BEAKER) 47.2 mL/min (test code = 357) VOLUME, TOTAL (BEAKER) (test code 4050 mL = 1457) CREATININE URINE (BEAKER) (test 26.1 mg/dL code = 375) PATIENT HEIGHT (CM) (BEAKER) 167.6 cm (test code = 2799) PATIENT WEIGHT (KG) (BEAKER) 75.100 kg (test code = 2800) Hand Slitter ID - BSRAD, CHEST, 1 VIEW, NON [id number] 16:34:00Reason for exam:- >IABP axillaryShould this be performed at the bedside?->Yes [facility] 1980 Sex: MFINAL REPORT TECHNIQUE: Frontal view of the chest. INDICATION: IABP axillary. COMPARISON: 05/17/2022 at 4:38 AM. FINDINGS: LINES/TUBES: Left axillary approach intra-aortic balloon pump with most cephalad marker tip projecting approximately 5.1 cm below the aortic knob. The tip of the introducer sheath projects 2.6 cm below the top of the aortic knob. Right IJ [place]-Ashli catheter is seen to lumbar artery on the left, consider retracting by 3 cm. HEART AND MEDIASTINUM: Cardiomediastinal contour is within normal limits. LUNGS: The lungs are well inflated and clear. No consolidation or pulmonary edema. PLEURA: No pneumothorax. No significant pleural effusion. SOFT TISSUES AND BONES: Unrema rkable. IMPRESSION: 1. Left axillary approach intra-aortic balloon pump with introducer sheath tip projecting 2.6 cm below the top of the aortic knob and cephalad marker projecting 5.1 cm below the topof the aortic knob.2. Right IJ [place]-Ashli catheter with tip projecting over the left lower pulmonary artery; consider withdrawing by 3 cm.3. No pulmonary edema or focal consolidative process. Signed: Rd Packer [facility] Verified Date/Time: 05/17/2022 16:34:16 POCT-GLUCOSE [id number] 15:42:06 Test Item Value Reference Range Interpretation Comments POC-GLUCOSE METER 111 mg/dL 70-110 H : TESTED A T [facility] 6720 (BEAKER) (test code = [address]entes [facility], 1538) [address]: Hand Slitter/Techni macrina ID = [id number] for Karrie Horner LACTIC ACID, [id number] 13:12:20 Test Item Value Reference Range Interpretation Comments LACTATE BLOOD VENOUS 1.79 mmol/L 0.50-2.00 Specime n moderately (2) (BEAKER) (test hemolyzed code = 2872) Hand Slitter ID - MARCOBASIC METABOLIC [id number] 13:08:16 Test Item Value Reference Range Interpretation Comments SODIUM (BEAKER) 136 meq/L 136-145 (test code = 381) POTASSIUM 4.1 meq/L 3.5-5.1 Specimen slight ly (BEAKER) (test hemolyzed code = 379) CHLORIDE (BEAKER) 102 meq/L 98-107 (test code = 382) CO2 (BEAKER) 24 meq/L 22-29 (test code = 355) BLOOD UREA 35 mg/dL 7-21 H NITROGEN (BEAKER) (test code = 354) CREATININE 1.44 mg/dL 0.57-1.25 H Specimen slight ly (BEAKER) (test hemolyzed code = 358) GLUCOSE RANDOM 105 mg/dL 70-105 (BEAKER) (test code = 652) CALCIUM (BEAKER) 9.5 mg/dL 8.4-10.2 (test code = 697) EGFR (BEAKER) 63 Interpretatio n of eGFR (test code = [...] not appl icable for dialysis patien ts Hand Slitter ID - [id number] 13:08:15 Test Item Value Reference Range Interpretation Comments MAGNESIUM (BEAKER) 2.3 mg/dL 1.6-2.6 Specimen slightly (test code = 627) hemolyzed Hand Slitter ID - [id number] 12:53:04 Test Item Value Reference Range Interpretation Comments RPR SCREEN (BEAKER) (test code = Nonreactive Nonreactive 420) OXYGEN SATURATION, [id number] 12:43:56 Test Item Value Reference Range Interpretation Comments O2 SATURATION (MEASURED) (BEAKER) 72.1 % (test code = 1455) HEMOGLOBIN [id number] 12:28:44 Test Item Value Reference Range Interpretation Comments HEMOGLOBIN A1C 6.4 % See_Comment H [Automated m essage] ELECTROPHORESIS (BEAKER) The system which (test code = 3811) generated this result transmitted ref erence range: <=5.6%. The reference range was not used to int erpret this result as normal/abnormal . "The A1c is measured using a NGSP-certified method. HbA1c value equal to or greater than 6.5% as thediagnosis cutoff for diabetes. An HbA1c value of 5.7- 6.4% indicates increased risk for diabetes (prediabetes)."Hand Slitter ID - ADMOperator ID - ADMEBV ANTIBODY, [id number] 12:24:05 Test Item Value Reference Range Interpretation Comments ARLEN MASON VIRAL CAPSID Negative Negative, Equivocal ANTIGEN IGM (simpleFLOORS) (test code = 3418) Arlen Mason Viral Capsid Antigen IgM Result Interpretation: </= 0.8 Al Negative 0.9-1.0 Al Equivocal >/= 1.1 Al PositiveTOXOPLASMA GONDII ANTIBODY, [id number] 12:24:05 Test Item Value Reference Range Interpretation Comments TOXOPLASMA GONDII IGG QUANTITATIVE < IU/mL <10.0 (simpleFLOORS) (test code = 3428) Toxoplasma Gondii IgG Result Interpretation: </= 9.9 IU/mL Normal 10-11 IU/mL Equivocal >/= 12IU/mL PositiveVARICELLA ZOSTER ANTIBODY, [id number] 12:24:05 Test Item Value Reference Range Interpretation Comments VARICELLA ZOSTER IGG (AL) (simpleFLOORS) 2.9 (test code = 3197) VARICELLA ZOSTER RESULT INTERPRETATIONS: <=0.8 Al Nonreactive: Presumed non- immune to VZV 0.9-1.0Al Equivocal >=1.1 Al Reactive: Presumed immune to VZV CYTOMEGALOVIRUS ANTIBODY, [id number] 12:24:04 Test Item Value Reference Range Interpretation Comments CYTOMEGALOVIRUS, IGG (simpleFLOORS) Positive Negative, Equivocal A (test code = 3429) CMV IgG Result Interpretation: </= 0.8 Al Negative 0.9-1.0 Al Equivocal >/=1.1 Al PositiveEBV ANTIBODY, [id number] 12:24:04 Test Item Value Reference Range Interpretation Comments ARLEN MASON VIRAL CAPSID Positive Negative, Equivocal A ANTIGEN IGG (simpleFLOORS) (test code = 3415) Arlen Mason Viral Capsid Antigen IgG Result Interpretation: </= 0.8 Al Negative 0.9-1.0 Al Equivocal >/= 1.1 Al PositivePOCT-GLUCOSE [id number] 11:48:40 Test Item Value Reference Range Interpretation Comments POC-GLUCOSE METER 114 mg/dL 70-110 H : TESTED A T [facility] 6720 (MIA) (test code = [place], 1538) [address]: Hand Slitter/Techni macrina ID = [id number] for BE LL, BEAULA RAD, CHEST, 1 VIEW, NON [id number] 11:22:00Reason for exam:->IABPShould this be performed at the bedside?->Yes [facility] : 1980 Sex: MFINAL REPORT RAD, CHEST, 1 VIEW, NON DEPT INDICATION: IABP COMPARISON: Prior day's exam FINDINGS: Portable frontal view of the chest. IMPRESSION: Support Lines: IABP marker 1.8 cm caudal to the aortic arch apex. Stable right IJ [place]-Ashli catheter with tip overlying left pulmonary artery. Lungs and pleura: No focal lung consolidation or large effusion. No pulmonary edema. No pneumothorax.Heart and mediastinum: Stable contours. Additional findings: None. Signed: [facility] Verified Date/Time: 05/17/2022 11:22:02 POCT- GLUCOSE [id number] 08:12:00 Test Item Value Reference Range Interpretation Comments POC-GLUCOSE METER 108 mg/dL 70-110 : TESTED A Gertrude [facility] 6720 (MIA) (test code = [place], 1538) [address]: Hand Slitter/Techni macrina ID = [id number] for BE LL, BEAULA [id number] 05:43:12 Test Item Value Reference Range Interpretation Comments PARTIAL THROMBOPLASTIN TIME 79.8 seconds 22.5-36.0 H (BEAKER) (test code = 760) CBC W/PLT COUNT & AUTO [id number] 05:09:41 Test Item Value Reference Range Interpretation Comments WHITE BLOOD CELL COUNT (BEAKER) 7.0 K/ L 3.5-10.5 (test code = 775) RED BLOOD CELL COUNT (BEAKER) 4.25 M/ L 4.63-6.08 L (test code = 761) HEMOGLOBIN (BEAKER) (test code = 11.6 GM/DL 13.7-17.5 L 410) HEMATOCRIT (BEAKER) (test code = 36.8 % 40.1-51.0 L 411) MEAN CORPUSCULAR VOLUME (BEAKER) 87 fL 79-92 (test code = 753) MEAN CORPUSCULAR HEMOGLOBIN 27.3 pg 25.7-32.2 (BEAKER) (test code = 751) MEAN CORPUSCULAR HEMOGLOBIN CONC 31.5 GM/DL 32.3-36.5 L (BEAKER) (test code = 752) RED CELL DISTRIBUTION WIDTH 14.0 % 11.6-14.4 (BEAKER) (test code = 412) PLATELET COUNT (BEAKER) (test 215 K/CU MM 150-450 code = 756) MEAN PLATELET VOLUME (BEAKER) 9.4 fL 9.4-12.4 (test code = 754) NUCLEATED RED BLOOD CELLS 0 /100 WBC 0-0 (BEAKER) (test code = 413) NEUTROPHILS RELATIVE PERCENT 71 % (BEAKER) (test code = 429) LYMPHOCYTES RELATIVE PERCENT 16 % (BEAKER) (test code = 430) MONOCYTES RELATIVE PERCENT 9 % (BEAKER) (test code = 431) EOSINOPHILS RELATIVE PERCENT 2 % (BEAKER) (test code = 432) BASOPHILS RELATIVE PERCENT 1 % (BEAKER) (test code = 437) NEUTROPHILS ABSOLUTE COUNT 4.98 K/ L 1.78-5.38 (BEAKER) (test code = 670) LYMPHOCYTES ABSOLUTE COUNT 1.13 K/ L 1.32-3.57 L (BEAKER) (test code = 414) MONOCYTES ABSOLUTE COUNT (BEAKER) 0.64 K/ L 0.30-0.82 (test code = 415) EOSINOPHILS ABSOLUTE COUNT 0.17 K/ L 0.04-0.54 (BEAKER) (test code = 416) BASOPHILS ABSOLUTE COUNT (BEAKER) 0.07 K/ L 0.01-0.08 (test code = 417) IMMATURE GRANULOCYTES-RELATIVE 0.60 % 0.00-1.00 PERCENT (BEAKER) (test code = 2801) HEPATIC FUNCTION [id number] 04:59:14 Test Item Value Reference Range Interpretation Comments TOTAL PROTEIN (BEAKER) (test code = 8.1 gm/dL 6.0-8.3 770) ALBUMIN (BEAKER) (test code = 1145) 3.7 g/dL 3.5-5.0 BILIRUBIN TOTAL (BEAKER) (test code 0.7 mg/dL 0.2-1.2 = 377) BILIRUBIN DIRECT (BEAKER) (test 0.3 mg/dL 0.1-0.5 code = 706) ALKALINE PHOSPHATASE (BEAKER) (test 78 U/L 40-150 code = 346) AST (SGOT) (BEAKER) (test code = 63 U/L 5-34 H 353) ALT (SGPT) (BEAKER) (test code = 128 U/L 6-55 H 347) Hand Slitter ID - MARCOBASIC METABOLIC [id number] 04:59:13 Test Item Value Reference Range Interpretation Comments SODIUM (BEAKER) 136 meq/L 136-145 (test code = 381) POTASSIUM 3.6 meq/L 3.5-5.1 (BEAKER) (test code = 379) CHLORIDE (BEAKER) 101 meq/L 98-107 (test code = 382) CO2 (BEAKER) 23 meq/L 22-29 (test code = 355) BLOOD UREA 40 mg/dL 7-21 H NITROGEN (BEAKER) (test code = 354) CREATININE 1.41 mg/dL 0.57-1.25 H (BEAKER) (test code = 358) GLUCOSE RANDOM 107 mg/dL 70-105 H (BEAKER) (test code = 652) CALCIUM (BEAKER) 9.8 mg/dL 8.4-10.2 (test code = 697) EGFR (BEAKER) 65 [...] not appl icable for dialysis patien ts Hand Slitter ID - [id number] 04:59:13 Test Item Value Reference Range Interpretation Comments MAGNESIUM (BEAKER) (test code = 2.4 mg/dL 1.6-2.6 627) Hand Slitter ID - [id number] 04:59:13 Test Item Value Reference Range Interpretation Comments PHOSPHORUS (BEAKER) (test code = 4.6 mg/dL 2.3-4.7 604) Hand Slitter ID - MARCOPROTHROMBIN [id number] 04:57:47 Test Item Value Reference Range Interpretation Comments PROTIME (BEAKER) (test code = 16.3 seconds 11.9-14.2 H 759) INR (BEAKER) (test code = 370) 1.40 <=5.90 RECOMMENDED COUMADIN/WARFARIN INR THERAPY RANGESSTANDARD DOSE: 2.0 - 3.0 Includes: PROPHYLAXIS for venous thrombosis, systemic embolization; TREATMENT for venous thrombosis and/or pulmonary embolus.HIGH RISK: Target INR is 2.5-3.5 for patients with mechanical heart valves.LACTIC ACID, [id number] 04:51:04 Test Item Value Reference Range Interpretation Comments LACTATE BLOOD VENOUS 1.53 mmol/L 0.50-2.00 Specime n slightly (2) (BEAKER) (test hemolyzed code = 2872) Hand Slitter ID - BSCALCIUM, [id number] 04:39:15 Test Item Value Reference Range Interpretation Comments CALCIUM IONIZED (BEAKER) (test 1.11 mmol/L 1.12-1.27 L code = 698) PH, BLOOD (BEAKER) (test code = 7.45 1810) OXYGEN SATURATION, [id number] 04:37:57 Test Item Value Reference Range Interpretation Comments O2 SATURATION (MEASURED) (BEAKER) 67.3 % (test code = 1455) POCT-GLUCOSE [id number] 00:10:45 Test Item Value Reference Range Interpretation Comments POC-GLUCOSE METER 142 mg/dL 70-110 H : TESTED A T [facility] 6720 (AKER) (test code = [address]entes [place], 1538) [address]: Hand Slitter/Techni macrina ID = [id number] for Hung Back [id number] 19:18:41 Test Item Value Reference Range Interpretation Comments FERRITIN (BEAKER) (test code = 314.57 ng/mL 5.00-275.00 H 361) Hand Slitter ID - BSHEPATITIS A ANTIBODY, [id number] 18:42:22 Test Item Value Reference Range Interpretation Comments HEPATITIS A IGG ANTIBODY (ViraxAKER) Reactive Nonreactive A (test code = 2797) Hand Slitter ID - BSVITAMIN D, [id number] 18:39:59 Test Item Value Reference Range Interpretation Comments VITAMIN D 25-OH (EMMAAKER) (test 42.3 ng/mL 6.6-49.9 code = 2764) Effective 11/20/2016: Reference Range ChangeNew: 6.6-49.9 ng/mL Previous: 13.0- 47.8 ng/mLRecommendedVitamin D Target Range: 30.0-40.0 ng/mLOperator ID - BST4, [id number] 18:39:58 Test Item Value Reference Range Interpretation Comments FREE T4 (EMMAAKER) (test code = 655) 1.23 ng/dL 0.70-1.48 Hand Slitter ID - [id number] 18:39:58 Test Item Value Reference Range Interpretation Comments THYROID STIMULATING HORMONE 1.424 uIU/mL 0.350-4.940 (BEAKER) (test code = 772) Hand Slitter ID - BSHIV-1 ANTIGEN WITH HIV-1/2 [id number] 18:38:38 Test Item Value Reference Range Interpretation Comments HIV-1 ANTIGEN WITH HIV 1\\T\\2 Nonreactive Nonreactive ANTIBODY (2) (ViraxAKER) (test code = 2586) Hand Slitter ID - BSHEPATITIS B CORE ANTIBODY, [id number] 18:38:37 Test Item Value Reference Range Interpretation Comments HEPATITIS B CORE TOTAL ANTIBODY Nonreactive Nonreactive (BEAKER) (test code = 497) Hand Slitter ID - BSHEPATITIS PANEL, [id number] 18:38:37 Test Item Value Reference Range Interpretation Comments HEPATITIS A IGM ANTIBODY (BEAKER) Nonreactive Nonreactive (test code = 498) HEPATITIS B CORE IGM ANTIBODY Nonreactive Nonreactive (BEAKER) (test code = 645) HEPATITIS C ANTIBODY (BEAKER) Nonreactive Nonreactive (test code = 367) HEPATITIS B SURFACE ANTIGEN (2) Nonreactive Nonreactive (BEAKER) (test code = 2585) Hand Slitter ID - BSLACTIC ACID, [id number] 18:24:13 Test Item Value Reference Range Interpretation Comments LACTATE BLOOD VENOUS 1.43 mmol/L 0.50-2.00 Specime n slightly (2) (BEAKER) (test hemolyzed code = 0552) Hand Slitter ID - BSB-TYPE NATRIURETIC FACTOR (BNP)2022-05-16 18:20:34 Test Item Value Reference Range Interpretation Comments B-TYPE NATRIURETIC PEPTIDE 1021 pg/mL 0-100 H (BEAKER) (test code = 700) Hand Slitter ID - [id number] 18:14:31 Test Item Value Reference Range Interpretation Comments TRANSFERRIN (BEAKER) (test code = 227 mg/dL 174-382 541) Hand Slitter ID - [id number] 18:14:30 Test Item Value Reference Range Interpretation Comments PREALBUMIN (BEAKER) (test code = 30 mg/dL 14-45 586) Hand Slitter ID - BSIRON, [id number] 18:13:57 Test Item Value Reference Range Interpretation Comments IRON (BEAKER) (test code = 547) 49.0 ug/dL 40.0-160.0 Hand Slitter ID - BSGAMMA GLUTAMYL TRANSFERASE (GGT)2022-05-16 18:13:56 Test Item Value Reference Range Interpretation Comments GAMMA GLUTAMYL TRANSFERASE (BEAKER) 148 U/L 9-64 H (test code = 364) Hand Slitter ID - BSLACTATE DEHYDROGENASE (LDH)2022-05-16 18:13:56 Test Item Value Reference Range Interpretation Comments LACTATE DEHYDROGENASE (BEAKER) (test 455 U/L 125-220 H code = 635) Hand Slitter ID - [id number] 18:13:56 Test Item Value Reference Range Interpretation Comments LIPASE (BEAKER) (test code = 749) 93 U/L 8-78 H Hand Slitter ID - [id number] 18:13:55 Test Item Value Reference Range Interpretation Comments MAGNESIUM (BEAKER) (test code = 2.5 mg/dL 1.6-2.6 627) Hand Slitter ID - BSURIC [id number] 18:13:55 Test Item Value Reference Range Interpretation Comments URIC ACID (BEAKER) (test code = 5.8 mg/dL 2.6-7.2 773) Hand Slitter ID - BSLIPID [id number] 18:13:55 Test Item Value Reference Range Interpretation Comments TRIGLYCERIDES (BEAKER) (test code = 137 mg/dL 540) CHOLESTEROL (BEAKER) (test code = 149 mg/dL 631) HDL CHOLESTEROL (BEAKER) (test code 44 mg/dL = 976) LDL CHOLESTEROL CALCULATED (BEAKER) 78 mg/dL (test code = 633) Triglyceride Reference Range: Low Risk <150 Borderline 150-199 High Risk 200- 499 Very High Risk >=500Cholesterol Reference Range: Low Risk <200 Borderline 200-239 High Risk >240HDL Cholesterol Reference Range: Low Risk >=60 High Risk <40LDL Cholesterol Reference Range: Optimal <100 Near Optimal 100-129 Borderline 130-159 High 160-189 Very High >=190 Hand Slitter ID - BSBASIC METABOLIC [id number] 18:13:54 Test Item Value Reference Range Interpretation Comments SODIUM (BEAKER) 135 meq/L 136-145 L (test code = 381) POTASSIUM 3.9 meq/L 3.5-5.1 (BEAKER) (test code = 379) CHLORIDE (BEAKER) 98 meq/L 98-107 (test code = 382) CO2 (BEAKER) 23 meq/L 22-29 (test code = 355) BLOOD UREA 46 mg/dL 7-21 H NITROGEN (BEAKER) (test code = 354) CREATININE 1.50 mg/dL 0.57-1.25 H (BEAKER) (test code = 358) GLUCOSE RANDOM 98 mg/dL 70-105 (BEAKER) (test code = 652) CALCIUM (BEAKER) 9.8 mg/dL 8.4-10.2 (test code = 697) EGFR (BEAKER) 60 Interpretatio n of eGFR [...] not appl icable for dialysis patien ts Hand Slitter ID - BSRETICULOCYTE [id number] 18:03:51 Test Item Value Reference Range Interpretation Comments RETICULOCYTE COUNT PCT (BEAKER) (test 2.2 % 0.5-1.8 H code = 575) Hand Slitter ID - 6000POCT-GLUCOSE [id number] 17:10:03 Test Item Value Reference Range Interpretation Comments POC-GLUCOSE METER 124 mg/dL 70-110 H : TESTED A T [facility]20 (BEAKER) (test code = FILEMON Fuentes [facility], 1538) [address]: Hand Slitter/Techni macrina ID = [id number] for Monica Gordon OXYGEN SATURATION, [id number] 17:04:02 Test Item Value Reference Range Interpretation Comments O2 SATURATION (MEASURED) (BEAKER) 72.1 % (test code = 1455) [id number] 13:42:18 Test Item Value Reference Range Interpretation Comments MAGNESIUM (BEAKER) 2.5 mg/dL 1.6-2.6 Specimen slightly (test code = 627) hemolyzed Hand Slitter ID - MARCOBASIC METABOLIC [id number] 13:42:18 Test Item Value Reference Range Interpretation Comments SODIUM (BEAKER) 134 meq/L 136-145 L (test code = 381) POTASSIUM 3.7 meq/L 3.5-5.1 Specimen slight ly (BEAKER) (test hemolyzed code = 379) CHLORIDE (BEAKER) 100 meq/L 98-107 (test code = 382) CO2 (BEAKER) 25 meq/L 22-29 (test code = 355) BLOOD UREA 44 mg/dL 7-21 H NITROGEN (BEAKER) (test code = 354) CREATININE 1.44 mg/dL 0.57-1.25 H Specimen slight ly (BEAKER) (test hemolyzed code = 358) GLUCOSE RANDOM 121 mg/dL 70-105 H (BEAKER) (test code = 652) CALCIUM (BEAKER) 9.8 mg/dL 8.4-10.2 (test code = 697) EGFR (BEAKER) 63 Interpretatio n of eGFR (test code = [...] not appl icable for dialysis patien ts Hand Slitter ID - MARCOLACTIC ACID, [id number] 13:27:57 Test Item Value Reference Range Interpretation Comments LACTATE BLOOD VENOUS (2) (BEAKER) 1.28 mmol/L 0.50-2.00 (test code = 2872) Hand Slitter ID - BSOXYGEN SATURATION, [id number] 13:24:55 Test Item Value Reference Range Interpretation Comments O2 SATURATION (MEASURED) (AKER) 73.9 % (test code = 1455) POCT-GLUCOSE [id number] 12:01:44 Test Item Value Reference Range Interpretation Comments POC-GLUCOSE METER 130 mg/dL 70-110 H : TESTED A T [facility] 6720 (simpleFLOORS) (test code = [facility], 1538) [address]: Hand Slitter/Techni macrina ID = [id number] for AG UILAR, GILBERTO POCT-GLUCOSE [id number] 08:10:10 Test Item Value Reference Range Interpretation Comments POC-GLUCOSE METER 117 mg/dL 70-110 H : TESTED A T [facility] 6720 (simpleFLOORS) (test code = [facility], 1538) [address]: Hand Slitter/Techni macrina ID = [id number] for AG UILAR, GILBERTO RAD, CHEST, 1 VIEW, NON [id number] 07:09:00Reason for exam:->IABPShould this be performed at the bedside?->Yes [facility] 1980 Sex: MFINAL REPORT RAD, CHEST, 1 VIEW, NON DEPT INDICATION: IABP COMPARISON: Prior day's exam FINDINGS: Portable frontal view of the chest. IMPRESSION: Support Lines: No significant change. IABP marker at the aortic arch apex.Lungs and pleura: Minimal bilateral infrahilar opacities are stable, possibly atelectasis. No pneumothorax.Heart and mediastinum: Stable contours. Additional findings:None. Signed: Parker Leger MDReport Verified Date/Time: 05/16/2022 07:09:41 Electronically signedby: PARKER LEGER MD on 05/16/2022 07:09 AMBASIC METABOLIC [id number] 05:05:11 Test Item Value Reference Range Interpretation Comments SODIUM (BEAKER) 132 meq/L 136-145 L (test code = 381) POTASSIUM 4.8 meq/L 3.5-5.1 (BEAKER) (test code = 379) CHLORIDE (BEAKER) 99 meq/L 98-107 (test code = 382) CO2 (BEAKER) 23 meq/L 22-29 (test code = 355) BLOOD UREA 50 mg/dL 7-21 H NITROGEN (BEAKER) (test code = 354) CREATININE 1.58 mg/dL 0.57-1.25 H (BEAKER) (test code = 358) GLUCOSE RANDOM 126 mg/dL 70-105 H (BEAKER) (test code = 652) CALCIUM (BEAKER) 9.7 mg/dL 8.4-10.2 (test code = 697) EGFR (BEAKER) 56 Interpretatio n of eGFR [...] not appl icable for dialysis patien ts Hand Slitter ID - BSHEPATIC FUNCTION [id number] 05:02:27 Test Item Value Reference Range Interpretation Comments TOTAL PROTEIN (BEAKER) (test code = 8.3 gm/dL 6.0-8.3 770) ALBUMIN (BEAKER) (test code = 1145) 3.7 g/dL 3.5-5.0 BILIRUBIN TOTAL (BEAKER) (test code 0.6 mg/dL 0.2-1.2 = 377) BILIRUBIN DIRECT (BEAKER) (test 0.3 mg/dL 0.1-0.5 code = 706) ALKALINE PHOSPHATASE (BEAKER) (test 75 U/L 40-150 code = 346) AST (SGOT) (BEAKER) (test code = 68 U/L 5-34 H 353) ALT (SGPT) (BEAKER) (test code = 130 U/L 6-55 H 347) Hand Slitter ID - [id number] 05:02:26 Test Item Value Reference Range Interpretation Comments MAGNESIUM (BEAKER) (test code = 2.8 mg/dL 1.6-2.6 H 627) Hand Slitter ID - [id number] 05:02:26 Test Item Value Reference Range Interpretation Comments PHOSPHORUS (BEAKER) (test code = 4.8 mg/dL 2.3-4.7 H 604) Hand Slitter ID - BSLACTIC ACID, [id number] 04:18:55 Test Item Value Reference Range Interpretation Comments LACTATE BLOOD VENOUS (2) (BEAKER) 1.32 mmol/L 0.50-2.00 (test code = 2872) Hand Slitter ID - [id number] 04:11:02 Test Item Value Reference Range Interpretation Comments PARTIAL THROMBOPLASTIN TIME 74.1 seconds 22.5-36.0 H (BEAKER) (test code = 760) PROTHROMBIN [id number] 04:09:41 Test Item Value Reference Range Interpretation Comments PROTIME (BEAKER) (test code = 16.2 seconds 11.9-14.2 H 759) INR (BEAKER) (test code = 370) 1.33 <=5.90 RECOMMENDED COUMADIN/WARFARIN INR THERAPY RANGESSTANDARD DOSE: 2.0 - 3.0 Includes: PROPHYLAXIS for venous thrombosis, systemic embolization; TREATMENT for venous thrombosis and/or pulmonary embolus.HIGH RISK: Target INR is 2.5-3.5 for patients with mechanical heart valves.CBC W/PLT COUNT & AUTO [id number] 03:56:55 Test Item Value Reference Range Interpretation Comments WHITE BLOOD CELL COUNT (BEAKER) 6.9 K/ L 3.5-10.5 (test code = 775) RED BLOOD CELL COUNT (BEAKER) 4.32 M/ L 4.63-6.08 L (test code = 761) HEMOGLOBIN (BEAKER) (test code = 11.8 GM/DL 13.7-17.5 L 410) HEMATOCRIT (BEAKER) (test code = 37.6 % 40.1-51.0 L 411) MEAN CORPUSCULAR VOLUME (BEAKER) 87 fL 79-92 (test code = 753) MEAN CORPUSCULAR HEMOGLOBIN 27.3 pg 25.7-32.2 (BEAKER) (test code = 751) MEAN CORPUSCULAR HEMOGLOBIN CONC 31.4 GM/DL 32.3-36.5 L (BEAKER) (test code = 752) RED CELL DISTRIBUTION WIDTH 14.1 % 11.6-14.4 (BEAKER) (test code = 412) PLATELET COUNT (BEAKER) (test 239 K/CU MM 150-450 code = 756) MEAN PLATELET VOLUME (BEAKER) 8.9 fL 9.4-12.4 L (test code = 754) NUCLEATED RED BLOOD CELLS 0 /100 WBC 0-0 (BEAKER) (test code = 413) NEUTROPHILS RELATIVE PERCENT 70 % (BEAKER) (test code = 429) LYMPHOCYTES RELATIVE PERCENT 17 % (BEAKER) (test code = 430) MONOCYTES RELATIVE PERCENT 9 % (BEAKER) (test code = 431) EOSINOPHILS RELATIVE PERCENT 3 % (BEAKER) (test code = 432) BASOPHILS RELATIVE PERCENT 1 % (BEAKER) (test code = 437) NEUTROPHILS ABSOLUTE COUNT 4.86 K/ L 1.78-5.38 (BEAKER) (test code = 670) LYMPHOCYTES ABSOLUTE COUNT 1.14 K/ L 1.32-3.57 L (BEAKER) (test code = 414) MONOCYTES ABSOLUTE COUNT (BEAKER) 0.63 K/ L 0.30-0.82 (test code = 415) EOSINOPHILS ABSOLUTE COUNT 0.17 K/ L 0.04-0.54 (BEAKER) (test code = 416) BASOPHILS ABSOLUTE COUNT (BEAKER) 0.07 K/ L 0.01-0.08 (test code = 417) IMMATURE GRANULOCYTES-RELATIVE 0.60 % 0.00-1.00 PERCENT (BEAKER) (test code = 2801) CALCIUM, [id number] 03:54:04 Test Item Value Reference Range Interpretation Comments CALCIUM IONIZED (BEAKER) (test 1.01 mmol/L 1.12-1.27 L code = 698) PH, BLOOD (BEAKER) (test code = 7.42 1810) OXYGEN SATURATION, [id number] 03:53:13 Test Item Value Reference Range Interpretation Comments O2 SATURATION (MEASURED) (BEAKER) 70.7 % (test code = 1455) BASIC METABOLIC [id number] 22:03:26 Test Item Value Reference Range Interpretation Comments SODIUM (BEAKER) 135 meq/L 136-145 L (test code = 381) POTASSIUM 3.2 meq/L 3.5-5.1 L (BEAKER) (test code = 379) CHLORIDE (BEAKER) 103 meq/L 98-107 (test code = 382) CO2 (BEAKER) 20 meq/L 22-29 L (test code = 355) BLOOD UREA 49 mg/dL 7-21 H NITROGEN (BEAKER) (test code = 354) CREATININE 1.34 mg/dL 0.57-1.25 H (BEAKER) (test code = 358) GLUCOSE RANDOM 120 mg/dL 70-105 H (BEAKER) (test code = 652) CALCIUM (BEAKER) 8.4 mg/dL 8.4-10.2 (test code = 697) EGFR (BEAKER) 69 Interpretati on of eGFR (test code = mL/min/1.73 values [...] not appl icable for dialysis patien ts Hand Slitter ID - [id number] 22:02:35 Test Item Value Reference Range Interpretation Comments MAGNESIUM (BEAKER) (test code = 2.7 mg/dL 1.6-2.6 H 627) Hand Slitter ID - BSLACTIC ACID, [id number] 21:39:20 Test Item Value Reference Range Interpretation Comments LACTATE BLOOD VENOUS (2) (BEAKER) 1.18 mmol/L 0.50-2.00 (test code = 2872) Hand Slitter ID - BSRAD, CHEST, 1 VIEW, NON [id number] 21:23:00Reason for exam:- >check [facility]P [facility] 1980 Sex: MFINAL REPORT Chest, one view. HISTORY: check IABP placement COMPARISON: Radiograph from earlier today IMPRESSION: The tip of the intra-aortic balloon pump overlies the aortic arch. The right IJ pulmonary trochanter has its tip over the left pulmonary artery. The hazy bilateral lower lung opacities are most likely due to atelectasis. No pleural effusion or pneumothorax. The cardiac silh ouette is unchanged in size. No acute bone abnormality. Signed: Meng Minereport Verified Date/Time: 05/15/2022 21:23:15 OXYGEN SATURATION, [id number] 21:15:20 Test Item Value Reference Range Interpretation Comments O2 SATURATION (MEASURED) (BEAKER) 82.3 % (test code = 1455) [id number] 19:05:29 Test Item Value Reference Range Interpretation Comments MAGNESIUM (BEAKER) 3.4 mg/dL 1.6-2.6 H Specimen slightly (test code = 627) hemolyzed Hand Slitter ID - [id number] 19:05:29 Test Item Value Reference Range Interpretation Comments POTASSIUM (BEAKER) 4.3 meq/L 3.5-5.1 Specimen slightly (test code = 379) hemolyzed Hand Slitter ID - [id number] 18:25:42 Test Item Value Reference Range Interpretation Comments POTASSIUM (BEAKER) (test code = 4.7 meq/L 3.5-5.1 379) Hand Slitter ID - BSPOCT-GLUCOSE [id number] 16:06:24 Test Item Value Reference Range Interpretation Comments POC-GLUCOSE METER 127 mg/dL 70-110 H : TESTED A T [facility] 6720 (BEAKER) (test code = FILE[place], 1538) [address]: Hand Slitter/Techni macrina ID = [id number] for BE RNABE, ANDERSON RAD, CHEST, 1 VIEW, NON [id number] 12:54:00Reason for exam:->IABPShould this be performed at the bedside?->Yes [facility] 1980 Sex: MFINAL REPORT RAD, CHEST, 1 VIEW, NON DEPT INDICATION: IABP COMPARISON: Prior day's exam FINDINGS: Portable frontal view of the chest. IMPRESSION: Support Lines: No significant change. Lungs and pleura: Lungs are clear. No pneumothorax.Heart and mediastinum: Stable contours. Additional findings: None. Signed: Parker Leger MDReport Verified Date/Time: 05/15/2022 12:54:31 BASI METABOLIC [id number] 12:53:38 Test Item Value Reference Range Interpretation Comments SODIUM (BEAKER) 134 meq/L 136-145 L (test code = 381) POTASSIUM 3.8 meq/L 3.5-5.1 (BEAKER) (test code = 379) CHLORIDE (BEAKER) 97 meq/L 98-107 L (test code = 382) CO2 (BEAKER) 24 meq/L 22-29 (test code = 355) BLOOD UREA 54 mg/dL 7-21 H NITROGEN (BEAKER) (test code = 354) CREATININE 1.59 mg/dL 0.57-1.25 H (BEAKER) (test code = 358) GLUCOSE RANDOM 126 mg/dL 70-105 H (BEAKER) (test code = 652) CALCIUM (BEAKER) 10.3 mg/dL 8.4-10.2 H (test code = 697) EGFR (BEAKER) 56 Interpretatio n of eGFR [...] GFR is not appl icable for dialysis patistefanie ts Hand Slitter ID - [id number] 12:53:38 Test Item Value Reference Range Interpretation Comments MAGNESIUM (BEAKER) (test code = 2.6 mg/dL 1.6-2.6 627) Hand Slitter ID - EDLACTIC ACID, [id number] 12:46:01 Test Item Value Reference Range Interpretation Comments LACTATE BLOOD VENOUS 1.27 mmol/L 0.50-2.00 Specime n slightly (2) (BEAKER) (test hemolyzed code = 2872) Hand Slitter ID - CJ WOXYGEN SATURATION, [id number] 12:26:52 Test Item Value Reference Range Interpretation Comments O2 SATURATION (MEASURED) (BEAKER) 70.7 % (test code = 1455) POCT-GLUCOSE [id number] 11:31:54 Test Item Value Reference Range Interpretation Comments POC-GLUCOSE METER 129 mg/dL 70-110 H : TESTED A T [facility] 6720 (BEAKER) (test code = [facility], 1538) [address]: Hand Slitter/Techni macrina ID = [id number] for BE RNABE, ANDERSON POCT-GLUCOSE [id number] 07:59:57 Test Item Value Reference Range Interpretation Comments POC-GLUCOSE METER 150 mg/dL 70-110 H : TESTED A T [facility] 6720 (BEAKER) (test code = [facility], 1538) [address]: Hand Slitter/Techni macrina ID = [id number] for BE RNABE, ANDERSON OXYGEN SATURATION, [id number] 07:52:52 Test Item Value Reference Range Interpretation Comments O2 SATURATION (MEASURED) (BEAKER) 80.0 % (test code = 1455) BASIC METABOLIC [id number] 05:34:32 Test Item Value Reference Range Interpretation Comments SODIUM (BEAKER) 135 meq/L 136-145 L (test code = 381) POTASSIUM 3.7 meq/L 3.5-5.1 (BEAKER) (test code = 379) CHLORIDE (BEAKER) 98 meq/L 98-107 (test code = 382) CO2 (BEAKER) 24 meq/L 22-29 (test code = 355) BLOOD UREA 55 mg/dL 7-21 H NITROGEN (BEAKER) (test code = 354) CREATININE 1.73 mg/dL 0.57-1.25 H (BEAKER) (test code = 358) GLUCOSE RANDOM 111 mg/dL 70-105 H (BEAKER) (test code = 652) CALCIUM (BEAKER) 10.1 mg/dL 8.4-10.2 (test code = 697) EGFR (BEAKER) 51 Interpretatio n of eGFR (test code = [...] not appl icable for dialysis patien ts Hand Slitter ID Michelle [place] WHEPATIC FUNCTION [id number] 05:27:25 Test Item Value Reference Range Interpretation Comments TOTAL PROTEIN (BEAKER) (test code = 8.4 gm/dL 6.0-8.3 H 770) ALBUMIN (BEAKER) (test code = 1145) 3.7 g/dL 3.5-5.0 BILIRUBIN TOTAL (BEAKER) (test code 0.7 mg/dL 0.2-1.2 = 377) BILIRUBIN DIRECT (BEAKER) (test 0.3 mg/dL 0.1-0.5 code = 706) ALKALINE PHOSPHATASE (BEAKER) (test 80 U/L 40-150 code = 346) AST (SGOT) (BEAKER) (test code = 71 U/L 5-34 H 353) ALT (SGPT) (BEAKER) (test code = 129 U/L 6-55 H 347) Hand Slitter BI [place] [id number] 05:27:24 Test Item Value Reference Range Interpretation Comments MAGNESIUM (BEAKER) (test code = 2.7 mg/dL 1.6-2.6 H 627) Hand Slitter BI [place] [id number] 05:27:24 Test Item Value Reference Range Interpretation Comments PHOSPHORUS (BEAKER) (test code = 5.7 mg/dL 2.3-4.7 H 604) Hand Slitter ID - CJ [id number] 05:16:33 Test Item Value Reference Range Interpretation Comments PARTIAL THROMBOPLASTIN TIME 74.9 seconds 22.5-36.0 H (BEAKER) (test code = 760) PROTHROMBIN [id number] 05:15:00 Test Item Value Reference Range Interpretation Comments PROTIME (BEAKER) (test code = 16.8 seconds 11.9-14.2 H 759) INR (BEAKER) (test code = 370) 1.46 <=5.90 RECOMMENDED COUMADIN/WARFARIN INR THERAPY RANGESSTANDARD DOSE: 2.0 - 3.0 Includes: PROPHYLAXIS for venous thrombosis, systemic embolization; TREATMENT for venous thrombosis and/or pulmonary embolus.HIGH RISK: Target INR is 2.5-3.5 for patients with mechanical heart valves.LACTIC ACID, [id number] 05:08:51 Test Item Value Reference Range Interpretation Comments LACTATE BLOOD VENOUS (2) (BEAKER) 1.09 mmol/L 0.50-2.00 (test code = 2872) Hand Slitter ID - ADMINCBC W/PLT COUNT & AUTO [id number] 05:05:09 Test Item Value Reference Range Interpretation Comments WHITE BLOOD CELL COUNT (BEAKER) 7.1 K/ L 3.5-10.5 (test code = 775) RED BLOOD CELL COUNT (BEAKER) 4.44 M/ L 4.63-6.08 L (test code = 761) HEMOGLOBIN (BEAKER) (test code = 12.1 GM/DL 13.7-17.5 L 410) HEMATOCRIT (BEAKER) (test code = 38.6 % 40.1-51.0 L 411) MEAN CORPUSCULAR VOLUME (BEAKER) 87 fL 79-92 (test code = 753) MEAN CORPUSCULAR HEMOGLOBIN 27.3 pg 25.7-32.2 (BEAKER) (test code = 751) MEAN CORPUSCULAR HEMOGLOBIN CONC 31.3 GM/DL 32.3-36.5 L (BEAKER) (test code = 752) RED CELL DISTRIBUTION WIDTH 14.1 % 11.6-14.4 (BEAKER) (test code = 412) PLATELET COUNT (BEAKER) (test 247 K/CU MM 150-450 code = 756) MEAN PLATELET VOLUME (BEAKER) 9.2 fL 9.4-12.4 L (test code = 754) NUCLEATED RED BLOOD CELLS 0 /100 WBC 0-0 (BEAKER) (test code = 413) NEUTROPHILS RELATIVE PERCENT 65 % (BEAKER) (test code = 429) LYMPHOCYTES RELATIVE PERCENT 18 % (BEAKER) (test code = 430) MONOCYTES RELATIVE PERCENT 11 % (BEAKER) (test code = 431) EOSINOPHILS RELATIVE PERCENT 3 % (BEAKER) (test code = 432) BASOPHILS RELATIVE PERCENT 1 % (BEAKER) (test code = 437) NEUTROPHILS ABSOLUTE COUNT 4.60 K/ L 1.78-5.38 (BEAKER) (test code = 670) LYMPHOCYTES ABSOLUTE COUNT 1.28 K/ L 1.32-3.57 L (BEAKER) (test code = 414) MONOCYTES ABSOLUTE COUNT (BEAKER) 0.79 K/ L 0.30-0.82 (test code = 415) EOSINOPHILS ABSOLUTE COUNT 0.24 K/ L 0.04-0.54 (BEAKER) (test code = 416) BASOPHILS ABSOLUTE COUNT (BEAKER) 0.09 K/ L 0.01-0.08 H (test code = 417) IMMATURE GRANULOCYTES-RELATIVE 0.70 % 0.00-1.00 PERCENT (BEAKER) (test code = 2801) CALCIUM, [id number] 04:56:22 Test Item Value Reference Range Interpretation Comments CALCIUM IONIZED (BEAKER) (test 0.96 mmol/L 1.12-1.27 L code = 698) PH, BLOOD (BEAKER) (test code = 7.43 1810) OXYGEN SATURATION, [id number] 04:55:05 Test Item Value Reference Range Interpretation Comments O2 SATURATION (MEASURED) (BEAKER) 94.6 % (test code = 1455) BASIC METABOLIC [id number] 21:36:38 Test Item Value Reference Range Interpretation Comments SODIUM (BEAKER) 136 meq/L 136-145 (test code = 381) POTASSIUM 3.5 meq/L 3.5-5.1 (BEAKER) (test code = 379) CHLORIDE (BEAKER) 102 meq/L 98-107 (test code = 382) CO2 (BEAKER) 23 meq/L 22-29 (test code = 355) BLOOD UREA 51 mg/dL 7-21 H NITROGEN (BEAKER) (test code = 354) CREATININE 1.65 mg/dL 0.57-1.25 H (BEAKER) (test code = 358) GLUCOSE RANDOM 116 mg/dL 70-105 H (BEAKER) (test code = 652) CALCIUM (BEAKER) 8.5 mg/dL 8.4-10.2 (test code = 697) EGFR (BEAKER) 53 Interpretatio n of eGFR [...] not appl icable for dialysis patien ts Hand Slitter ID - [id number] 21:28:15 Test Item Value Reference Range Interpretation Comments MAGNESIUM (BEAKER) (test code = 2.4 mg/dL 1.6-2.6 627) Hand Slitter ID - ADMINLACTIC ACID, [id number] 21:09:31 Test Item Value Reference Range Interpretation Comments LACTATE BLOOD VENOUS 1.18 mmol/L 0.50-2.00 Specime n slightly (2) (BEAKER) (test hemolyzed code = 2872) Hand Slitter ID - BSOXYGEN SATURATION, [id number] 20:43:04 Test Item Value Reference Range Interpretation Comments O2 SATURATION (MEASURED) (BEAKER) 78.7 % (test code = 1455) POCT-GLUCOSE [id number] 17:17:06 Test Item Value Reference Range Interpretation Comments POC-GLUCOSE METER 126 mg/dL 70-110 H : TESTED A T [facility] 6720 (BEAKER) (test code = [place], 1538) [address]: Hand Slitter/Techni macrina ID = [id number] for Bianca Ann BASIC METABOLIC [id number] 15:17:16 Test Item Value Reference Range Interpretation Comments SODIUM (BEAKER) 135 meq/L 136-145 L (test code = 381) POTASSIUM 3.7 meq/L 3.5-5.1 (BEAKER) (test code = 379) CHLORIDE (BEAKER) 96 meq/L 98-107 L (test code = 382) CO2 (BEAKER) 23 meq/L 22-29 (test code = 355) BLOOD UREA 55 mg/dL 7-21 H NITROGEN (BEAKER) (test code = 354) CREATININE 1.80 mg/dL 0.57-1.25 H (BEAKER) (test code = 358) GLUCOSE RANDOM 129 mg/dL 70-105 H (BEAKER) (test code = 652) CALCIUM (BEAKER) 10.2 mg/dL 8.4-10.2 (test code = 697) EGFR (BEAKER) 48 Interpretati on of eGFR (test code = mL/min/1.73 values [...] not appl icable for dialysis patien ts Hand Slitter ID - [id number] 15:17:16 Test Item Value Reference Range Interpretation Comments MAGNESIUM (BEAKER) (test code = 2.6 mg/dL 1.6-2.6 627) Hand Slitter ID - BSLACTIC ACID, [id number] 13:06:29 Test Item Value Reference Range Interpretation Comments LACTATE BLOOD VENOUS 1.32 mmol/L 0.50-2.00 Specime n slightly (2) (BEAKER) (test hemolyzed code = 9142) Hand Slitter ID - MARCOOXYGEN SATURATION, [id number] 12:41:37 Test Item Value Reference Range Interpretation Comments O2 SATURATION (MEASURED) (BEAKER) 69.1 % (test code = 1455) POCT-GLUCOSE [id number] 12:37:47 Test Item Value Reference Range Interpretation Comments POC-GLUCOSE METER 158 mg/dL 70-110 H : TESTED A T [facility] 6720 (BEAKER) (test code = [place], 1538) [address]: Hand Slitter/Techni macrina ID = [id number] for GILBERTO HUMPHREYS RAD, CHEST, 1 VIEW, NON [id number] 08:35:00Reason for exam:->IABPShould this be performed at the bedside?->Yes [facility] 1980 Sex: MFINAL REPORT RAD, CHEST, 1 VIEW, NON DEPT INDICATION: IABP COMPARISON: Prior day's exam FINDINGS: Portable frontal view of the chest. IMPRESSION: Support Lines: IABP marker approximately 1 cm below the aortic arch apex Lungs and pleura: No focal lung consolidation, pleural effusion orpulmonary edema. No pneumothorax.Heart and mediastinum: Stable contours. Additional findings: None. Signed: Parker Legereport Verified Date/Time: 05/14/2022 08:35:56 HEPATIC FUNCTION [id number] 05:28:34 Test Item Value Reference Range Interpretation Comments TOTAL PROTEIN (BEAKER) (test code = 9.0 gm/dL 6.0-8.3 H 770) ALBUMIN (BEAKER) (test code = 1145) 3.8 g/dL 3.5-5.0 BILIRUBIN TOTAL (BEAKER) (test code 0.8 mg/dL 0.2-1.2 = 377) BILIRUBIN DIRECT (BEAKER) (test 0.4 mg/dL 0.1-0.5 code = 706) ALKALINE PHOSPHATASE (BEAKER) (test 86 U/L 40-150 code = 346) AST (SGOT) (BEAKER) (test code = 68 U/L 5-34 H 353) ALT (SGPT) (BEAKER) (test code = 123 U/L 6-55 H 347) Hand Slitter ID - [id number] 05:28:33 Test Item Value Reference Range Interpretation Comments MAGNESIUM (BEAKER) (test code = 2.7 mg/dL 1.6-2.6 H 627) Hand Slitter ID - [id number] 05:28:33 Test Item Value Reference Range Interpretation Comments PHOSPHORUS (BEAKER) (test code = 5.5 mg/dL 2.3-4.7 H 604) Hand Slitter ID - BSBASIC METABOLIC [id number] 05:28:32 Test Item Value Reference Range Interpretation Comments SODIUM (BEAKER) 132 meq/L 136-145 L (test code = 381) POTASSIUM 3.4 meq/L 3.5-5.1 L (BEAKER) (test code = 379) CHLORIDE (BEAKER) 93 meq/L 98-107 L (test code = 382) CO2 (BEAKER) 25 meq/L 22-29 (test code = 355) BLOOD UREA 51 mg/dL 7-21 H NITROGEN (BEAKER) (test code = 354) CREATININE 1.81 mg/dL 0.57-1.25 H (BEAKER) (test code = 358) GLUCOSE RANDOM 130 mg/dL 70-105 H (BEAKER) (test code = 652) CALCIUM (BEAKER) 10.1 mg/dL 8.4-10.2 (test code = 697) EGFR (BEAKER) 48 Interpretatio n of eGFR (test code = mL/min/1.73 values Stage De scription 1092) sq m Result G1 Ana l or high >=90 G2 Mildly decreased 60-89 G3a Mildl y to moderately 45-5 9 G3b Moderately to s everely 30-44 G4 Severl y decreased 15-29 G5 Kidney failure <15Reported eGF R is based on the CKD-EPI 1 equation that d oes not use a race coefficientEsti mated GFR is not as accur ate as Creatinine Cahty melodie in predicting glom erular filtration rate . Estimated GFR is not appl icable for dialysis patien aramis Hand Slitter ID - [id number] 05:21:07 Test Item Value Reference Range Interpretation Comments PARTIAL THROMBOPLASTIN TIME 82.5 seconds 22.5-36.0 H (BEAKER) (test code = 760) PROTHROMBIN TIME/[id number] 05:19:27 Test Item Value Reference Range Interpretation Comments PROTIME (BEAKER) (test code = 16.3 seconds 11.9-14.2 H 759) INR (BEAKER) (test code = 370) 1.40 <=5.90 RECOMMENDED COUMADIN/WARFARIN INR THERAPY RANGESSTANDARD DOSE: 2.0 - 3.0 Includes: PROPHYLAXIS for venous thrombosis, systemic embolization; TREATMENT for venous thrombosis and/or pulmonary embolus.HIGH RISK: Target INR is 2.5-3.5 for patients with mechanical heart valves.CALCIUM, [id number] 05:13:04 Test Item Value Reference Range Interpretation Comments CALCIUM IONIZED (BEAKER) (test 1.09 mmol/L 1.12-1.27 L code = 698) PH, BLOOD (BEAKER) (test code = 7.44 1810) OXYGEN SATURATION, [id number] 05:11:39 Test Item Value Reference Range Interpretation Comments O2 SATURATION (MEASURED) (BEAKER) 75.3 % (test code = 1455) LACTIC ACID, [id number] 05:09:19 Test Item Value Reference Range Interpretation Comments LACTATE BLOOD VENOUS 1.37 mmol/L 0.50-2.00 Specime n slightly (2) (BEAKER) (test hemolyzed code = 9512) Hand Slitter ID - BSCBC W/PLT COUNT & AUTO [id number] 04:57:13 Test Item Value Reference Range Interpretation Comments WHITE BLOOD CELL COUNT (BEAKER) 7.9 K/ L 3.5-10.5 (test code = 775) RED BLOOD CELL COUNT (BEAKER) 4.70 M/ L 4.63-6.08 (test code = 761) HEMOGLOBIN (BEAKER) (test code = 13.0 GM/DL 13.7-17.5 L 410) HEMATOCRIT (BEAKER) (test code = 40.6 % 40.1-51.0 411) MEAN CORPUSCULAR VOLUME (BEAKER) 86 fL 79-92 (test code = 753) MEAN CORPUSCULAR HEMOGLOBIN 27.7 pg 25.7-32.2 (BEAKER) (test code = 751) MEAN CORPUSCULAR HEMOGLOBIN CONC 32.0 GM/DL 32.3-36.5 L (BEAKER) (test code = 752) RED CELL DISTRIBUTION WIDTH 13.9 % 11.6-14.4 (BEAKER) (test code = 412) PLATELET COUNT (BEAKER) (test 284 K/CU MM 150-450 code = 756) MEAN PLATELET VOLUME (BEAKER) 9.0 fL 9.4-12.4 L (test code = 754) NUCLEATED RED BLOOD CELLS 0 /100 WBC 0-0 (BEAKER) (test code = 413) NEUTROPHILS RELATIVE PERCENT 68 % (BEAKER) (test code = 429) LYMPHOCYTES RELATIVE PERCENT 17 % (BEAKER) (test code = 430) MONOCYTES RELATIVE PERCENT 10 % (BEAKER) (test code = 431) EOSINOPHILS RELATIVE PERCENT 3 % (BEAKER) (test code = 432) BASOPHILS RELATIVE PERCENT 1 % (BEAKER) (test code = 437) NEUTROPHILS ABSOLUTE COUNT 5.39 K/ L 1.78-5.38 H (BEAKER) (test code = 670) LYMPHOCYTES ABSOLUTE COUNT 1.36 K/ L 1.32-3.57 (BEAKER) (test code = 414) MONOCYTES ABSOLUTE COUNT (BEAKER) 0.78 K/ L 0.30-0.82 (test code = 415) EOSINOPHILS ABSOLUTE COUNT 0.27 K/ L 0.04-0.54 (BEAKER) (test code = 416) BASOPHILS ABSOLUTE COUNT (BEAKER) 0.09 K/ L 0.01-0.08 H (test code = 417) IMMATURE GRANULOCYTES-RELATIVE 0.50 % 0.00-1.00 PERCENT (BEAKER) (test code = 2801) POCT-GLUCOSE [id number] 22:01:20 Test Item Value Reference Range Interpretation Comments POC-GLUCOSE METER 171 mg/dL 70-110 H : Notified RN/MD: (MIA) (test code = TESTED AT [facility] [id number]) [place], [address]: Hand Slitter/Techni macrina ID = [id number] for CE LUC [place] [id number] 20:43:20 Test Item Value Reference Range Interpretation Comments MAGNESIUM (BEAKER) (test code = 2.6 mg/dL 1.6-2.6 627) Hand Slitter ID - BSBASIC METABOLIC [id number] 20:43:19 Test Item Value Reference Range Interpretation Comments SODIUM (BEAKER) 133 meq/L 136-145 L (test code = 381) POTASSIUM 3.8 meq/L 3.5-5.1 (BEAKER) (test code = 379) CHLORIDE (BEAKER) 93 meq/L 98-107 L (test code = 382) CO2 (BEAKER) 24 meq/L 22-29 (test code = 355) BLOOD UREA 52 mg/dL 7-21 H NITROGEN (BEAKER) (test code = 354) CREATININE 1.98 mg/dL 0.57-1.25 H (BEAKER) (test code = 358) GLUCOSE RANDOM 137 mg/dL 70-105 H (BEAKER) (test code = 652) CALCIUM (BEAKER) 9.9 mg/dL 8.4-10.2 (test code = 697) EGFR (BEAKER) 43 Interpretatio n of eGFR (test code = [...] not appl icable for dialysis patien ts Hand Slitter ID - BSLACTIC ACID, [id number] 20:38:35 Test Item Value Reference Range Interpretation Comments LACTATE BLOOD VENOUS 1.17 mmol/L 0.50-2.00 Specime n slightly (2) (BEAKER) (test hemolyzed code = 2872) Hand Slitter ID - BSOXYGEN SATURATION, [id number] 20:25:37 Test Item Value Reference Range Interpretation Comments O2 SATURATION (MEASURED) (BEAKER) 59.4 % (test code = 1455) POCT-GLUCOSE [id number] 16:02:01 Test Item Value Reference Range Interpretation Comments POC-GLUCOSE METER 139 mg/dL 70-110 H : TESTED A T [facility] 6720 (BEAKER) (test code = [place], 1538) [address]: Hand Slitter/Techni macrina ID = [id number] for GILBERTO HUMPHREYS BASIC METABOLIC [id number] 14:06:05 Test Item Value Reference Range Interpretation Comments SODIUM (BEAKER) 131 meq/L 136-145 L (test code = 381) POTASSIUM 4.4 meq/L 3.5-5.1 Specimen slight ly (BEAKER) (test hemolyzed code = 379) CHLORIDE (BEAKER) 91 meq/L 98-107 L (test code = 382) CO2 (BEAKER) 27 meq/L 22-29 (test code = 355) BLOOD UREA 45 mg/dL 7-21 H NITROGEN (BEAKER) (test code = 354) CREATININE 2.01 mg/dL 0.57-1.25 H Specimen slight ly (BEAKER) (test hemolyzed code = 358) GLUCOSE RANDOM 133 mg/dL 70-105 H (BEAKER) (test code = 652) CALCIUM (BEAKER) 10.7 mg/dL 8.4-10.2 H (test code = 697) EGFR (BEAKER) 42 Interpretatio n of eGFR (test code = [...] not appl icable for dialysis patien ts Hand Slitter ID - [id number] 14:06:04 Test Item Value Reference Range Interpretation Comments MAGNESIUM (BEAKER) 2.6 mg/dL 1.6-2.6 Specimen slightly (test code = 627) hemolyzed Hand Slitter ID - MARCOLACTIC ACID, [id number] 14:00:26 Test Item Value Reference Range Interpretation Comments LACTATE BLOOD VENOUS 1.23 mmol/L 0.50-2.00 Specime n slightly (2) (BEAKER) (test hemolyzed code = 2872) Hand Slitter ID - MARCOOXYGEN SATURATION, [id number] 13:54:21 Test Item Value Reference Range Interpretation Comments O2 SATURATION (MEASURED) (BEAKER) 69.9 % (test code = 1455) POCT-GLUCOSE [id number] 11:27:58 Test Item Value Reference Range Interpretation Comments POC-GLUCOSE METER 127 mg/dL 70-110 H : TESTED A T [facility] 6720 (BEAKER) (test code = [place], 1538) [address]: Hand Slitter/Techni macrina ID = [id number] for MAYUR GARCIA RAD, CHEST, 1 VIEW, NON [id number] 08:25:00Reason for exam:->IABP positionShould this be performed at the bedside?->Yes [facility] 1980 Sex: MFINAL REPORT RAD, CHEST, 1 VIEW, NON DEPT INDICATION: IABP position COMPARISON: Prior day's exam FINDINGS: Portable frontal view of the chest. IMPRESSION: Support Lines: Right IJ [place] catheter tip overlies the proximal left main pulmonary artery. IABP marker tip at the aortic archapex. Lungs and pleura: Lungs are clear. No pulmonary edema or effusion. No pneumothorax.Heart and mediastinum: Stable contours. Additional findings: None. Signed: Parker Leger MDReport Verified Date/Time: 05/13/2022 08:25:05 POCT-GLUCOSE [id number] 07:52:55 Test Item Value Reference Range Interpretation Comments POC-GLUCOSE METER 127 mg/dL 70-110 H : TESTED A T [facility] (BEAKER) (test code = [place], 1538) [address]: Hand Slitter/Techni macrina ID = [id number] for AG GILBERTO CHASE [id number] 05:30:21 Test Item Value Reference Range Interpretation Comments PHOSPHORUS (BEAKER) (test code = 6.0 mg/dL 2.3-4.7 H 604) Hand Slitter ID - BSHEPATIC FUNCTION [id number] 05:30:21 Test Item Value Reference Range Interpretation Comments TOTAL PROTEIN (BEAKER) (test code = 9.2 gm/dL 6.0-8.3 H 770) ALBUMIN (BEAKER) (test code = 1145) 4.0 g/dL 3.5-5.0 BILIRUBIN TOTAL (BEAKER) (test code 1.0 mg/dL 0.2-1.2 = 377) BILIRUBIN DIRECT (BEAKER) (test 0.5 mg/dL 0.1-0.5 code = 706) ALKALINE PHOSPHATASE (BEAKER) (test 88 U/L 40-150 code = 346) AST (SGOT) (BEAKER) (test code = 94 U/L 5-34 H 353) ALT (SGPT) (BEAKER) (test code = 145 U/L 6-55 H 347) Hand Slitter ID - BSBASIC METABOLIC [id number] 05:30:20 Test Item Value Reference Range Interpretation Comments SODIUM (BEAKER) 132 meq/L 136-145 L (test code = 381) POTASSIUM 3.3 meq/L 3.5-5.1 L (BEAKER) (test code = 379) CHLORIDE (BEAKER) 87 meq/L 98-107 L (test code = 382) CO2 (BEAKER) 28 meq/L 22-29 (test code = 355) BLOOD UREA 43 mg/dL 7-21 H NITROGEN (BEAKER) (test code = 354) CREATININE 2.04 mg/dL 0.57-1.25 H (BEAKER) (test code = 358) GLUCOSE RANDOM 123 mg/dL 70-105 H (BEAKER) (test code = 652) CALCIUM (BEAKER) 9.9 mg/dL 8.4-10.2 (test code = 697) EGFR (BEAKER) 41 Interpretatio n of eGFR (test code = [...] not appl icable for dialysis patien ts Hand Slitter ID - [id number] 05:30:20 Test Item Value Reference Range Interpretation Comments MAGNESIUM (BEAKER) (test code = 2.5 mg/dL 1.6-2.6 627) Hand Slitter ID - [id number] 04:54:40 Test Item Value Reference Range Interpretation Comments PARTIAL THROMBOPLASTIN TIME 84.9 seconds 22.5-36.0 H (BEAKER) (test code = 760) PROTHROMBIN [id number] 04:52:56 Test Item Value Reference Range Interpretation Comments PROTIME (BEAKER) (test code = 16.4 seconds 11.9-14.2 H 759) INR (BEAKER) (test code = 370) 1.41 <=5.90 RECOMMENDED COUMADIN/WARFARIN INR THERAPY RANGESSTANDARD DOSE: 2.0 - 3.0 Includes: PROPHYLAXIS for venous thrombosis, systemic embolization; TREATMENT for venous thrombosis and/or pulmonary embolus.HIGH RISK: Target INR is 2.5-3.5 for patients with mechanical heart valves.CBC W/PLT COUNT & AUTO [id number] 04:43:37 Test Item Value Reference Range Interpretation Comments WHITE BLOOD CELL COUNT (BEAKER) 8.5 K/ L 3.5-10.5 (test code = 775) RED BLOOD CELL COUNT (BEAKER) 4.80 M/ L 4.63-6.08 (test code = 761) HEMOGLOBIN (BEAKER) (test code = 12.9 GM/DL 13.7-17.5 L 410) HEMATOCRIT (BEAKER) (test code = 41.5 % 40.1-51.0 411) MEAN CORPUSCULAR VOLUME (BEAKER) 87 fL 79-92 (test code = 753) MEAN CORPUSCULAR HEMOGLOBIN 26.9 pg 25.7-32.2 (BEAKER) (test code = 751) MEAN CORPUSCULAR HEMOGLOBIN CONC 31.1 GM/DL 32.3-36.5 L (BEAKER) (test code = 752) RED CELL DISTRIBUTION WIDTH 14.0 % 11.6-14.4 (BEAKER) (test code = 412) PLATELET COUNT (BEAKER) (test 290 K/CU MM 150-450 code = 756) MEAN PLATELET VOLUME (BEAKER) 8.9 fL 9.4-12.4 L (test code = 754) NUCLEATED RED BLOOD CELLS 0 /100 WBC 0-0 (BEAKER) (test code = 413) NEUTROPHILS RELATIVE PERCENT 67 % (BEAKER) (test code = 429) LYMPHOCYTES RELATIVE PERCENT 18 % (BEAKER) (test code = 430) MONOCYTES RELATIVE PERCENT 10 % (BEAKER) (test code = 431) EOSINOPHILS RELATIVE PERCENT 3 % (BEAKER) (test code = 432) BASOPHILS RELATIVE PERCENT 1 % (BEAKER) (test code = 437) NEUTROPHILS ABSOLUTE COUNT 5.71 K/ L 1.78-5.38 H (BEAKER) (test code = 670) LYMPHOCYTES ABSOLUTE COUNT 1.57 K/ L 1.32-3.57 (BEAKER) (test code = 414) MONOCYTES ABSOLUTE COUNT (BEAKER) 0.82 K/ L 0.30-0.82 (test code = 415) EOSINOPHILS ABSOLUTE COUNT 0.25 K/ L 0.04-0.54 (BEAKER) (test code = 416) BASOPHILS ABSOLUTE COUNT (BEAKER) 0.10 K/ L 0.01-0.08 H (test code = 417) IMMATURE GRANULOCYTES-RELATIVE 1.10 % 0.00-1.00 H PERCENT (BEAKER) (test code = 2801) LACTIC ACID, [id number] 04:42:56 Test Item Value Reference Range Interpretation Comments LACTATE BLOOD VENOUS 1.37 mmol/L 0.50-2.20 Specime n slightly (2) (BEAKER) (test hemolyzed code = 1952) Hand Slitter ID - RAZA [id number] 04:13:22 Test Item Value Reference Range Interpretation Comments CALCIUM IONIZED (BEAKER) (test 1.10 mmol/L 1.12-1.27 L code = 698) PH, BLOOD (BEAKER) (test code = 7.43 1810) OXYGEN SATURATION, [id number] 04:11:05 Test Item Value Reference Range Interpretation Comments O2 SATURATION (MEASURED) (BEAKER) 82.2 % (test code = 1455) POCT-GLUCOSE [id number] 21:11:16 Test Item Value Reference Range Interpretation Comments POC-GLUCOSE METER 151 mg/dL 70-110 H : TESTED A T [facility] 6720 (BEAKER) (test code = [place], 1538) [address]: Hand Slitter/Techni macrina ID = [id number] for Marilee Blanco BASIC METABOLIC [id number] 20:26:50 Test Item Value Reference Range Interpretation Comments SODIUM (BEAKER) 133 meq/L 136-145 L (test code = 381) POTASSIUM 3.6 meq/L 3.5-5.1 Specimen slight ly (BEAKER) (test hemolyzed code = 379) CHLORIDE (BEAKER) 90 meq/L 98-107 L (test code = 382) CO2 (BEAKER) 27 meq/L 22-29 (test code = 355) BLOOD UREA 44 mg/dL 7-21 H NITROGEN (BEAKER) (test code = 354) CREATININE 2.19 mg/dL 0.57-1.25 H Specimen slight ly (BEAKER) (test hemolyzed code = 358) GLUCOSE RANDOM 159 mg/dL 70-105 H (BEAKER) (test code = 652) CALCIUM (BEAKER) 10.4 mg/dL 8.4-10.2 H (test code = 697) EGFR (BEAKER) 38 Interpretatio n of eGFR (test code = [...] not appl icable for dialysis patien ts Hand Slitter ID - [id number] 20:26:49 Test Item Value Reference Range Interpretation Comments MAGNESIUM (BEAKER) 2.5 mg/dL 1.6-2.6 Specimen slightly (test code = 627) hemolyzed Hand Slitter ID - MARCOOXYGEN SATURATION, [id number] 20:23:06 Test Item Value Reference Range Interpretation Comments O2 SATURATION (MEASURED) (BEAKER) 80.7 % (test code = 1455) LACTIC ACID, [id number] 20:20:26 Test Item Value Reference Range Interpretation Comments LACTATE BLOOD VENOUS 2.30 mmol/L 0.50-2.20 H Specime n slightly (2) (BEAKER) (test hemolyzed code = 2872) Hand Slitter ID - BSPOCT-GLUCOSE [id number] 16:57:35 Test Item Value Reference Range Interpretation Comments POC-GLUCOSE METER 129 mg/dL 70-110 H : [facility] (test code = [address] [facility], 1538) [address]: Hand Slitter/Techni macrina ID = [id number] for Nena aragonignacioAleisha rodríguezli BASIC METABOLIC [id number] 13:08:20 Test Item Value Reference Range Interpretation Comments SODIUM (BEAKER) 131 meq/L 136-145 L (test code = 381) POTASSIUM 3.8 meq/L 3.5-5.1 Specimen slight ly (BEAKER) (test hemolyzed code = 379) CHLORIDE (BEAKER) 93 meq/L 98-107 L (test code = 382) CO2 (BEAKER) 24 meq/L 22-29 (test code = 355) BLOOD UREA 37 mg/dL 7-21 H NITROGEN (BEAKER) (test code = 354) CREATININE 1.85 mg/dL 0.57-1.25 H Specimen slight ly (BEAKER) (test hemolyzed code = 358) GLUCOSE RANDOM 188 mg/dL 70-105 H (BEAKER) (test code = 652) CALCIUM (BEAKER) 9.7 mg/dL 8.4-10.2 (test code = 697) EGFR (BEAKER) 47 Interpretatio n of eGFR (test code = [...] not appl icable for dialysis patien ts Hand Slitter ID - [id number] 13:08:19 Test Item Value Reference Range Interpretation Comments MAGNESIUM (BEAKER) 2.3 mg/dL 1.6-2.6 Specimen slightly (test code = 627) hemolyzed Hand Slitter ID - BSLACTIC ACID, [id number] 13:06:59 Test Item Value Reference Range Interpretation Comments LACTATE BLOOD VENOUS 1.89 mmol/L 0.50-2.20 Specime n slightly (2) (BEAKER) (test hemolyzed code = 2872) Hand Slitter ID - BSPOCT-GLUCOSE [id number] 12:29:50 Test Item Value Reference Range Interpretation Comments POC-GLUCOSE METER 188 mg/dL 70-110 H : TESTED A T [facility] 6720 (simpleFLOORS) (test code = [facility] [email or web address] [facility], 153) [address]: Hand Slitter/Techni macrina ID = [id number] for Kaye Lee OXYGEN SATURATION, [id number] 09:53:15 Test Item Value Reference Range Interpretation Comments O2 SATURATION (MEASURED) (BEAKER) 74.9 % (test code = 1455) POCT-GLUCOSE [id number] 07:57:52 Test Item Value Reference Range Interpretation Comments POC-GLUCOSE METER 136 mg/dL 70-110 H : TESTED A T [facility] 6720 (simpleFLOORS) (test code = [facility] Alfredo [facility], 1538) [address]: Hand Slitter/Techni macrina ID = [id number] for Kaye Lee CALCIUM, [id number] 05:16:28 Test Item Value Reference Range Interpretation Comments CALCIUM IONIZED (BEAKER) (test 1.09 mmol/L 1.12-1.27 L code = 698) PH, BLOOD (BEAKER) (test code = 7.43 1810) OXYGEN SATURATION, [id number] 05:16:06 Test Item Value Reference Range Interpretation Comments O2 SATURATION (MEASURED) (BEAKER) 62.4 % (test code = 1455) [id number] 05:15:27 Test Item Value Reference Range Interpretation Comments PHOSPHORUS (BEAKER) (test code = 5.0 mg/dL 2.3-4.7 H 604) Hand Slitter ID - MARCOHEPATIC FUNCTION [id number] 05:15:27 Test Item Value Reference Range Interpretation Comments TOTAL PROTEIN (BEAKER) (test code = 8.5 gm/dL 6.0-8.3 H 770) ALBUMIN (BEAKER) (test code = 1145) 3.8 g/dL 3.5-5.0 BILIRUBIN TOTAL (BEAKER) (test code 1.0 mg/dL 0.2-1.2 = 377) BILIRUBIN DIRECT (BEAKER) (test 0.5 mg/dL 0.1-0.5 code = 706) ALKALINE PHOSPHATASE (BEAKER) (test 81 U/L 40-150 code = 346) AST (SGOT) (BEAKER) (test code = 87 U/L 5-34 H 353) ALT (SGPT) (BEAKER) (test code = 135 U/L 6-55 H 347) Hand Slitter ID - MARCOBASIC METABOLIC [id number] 05:15:26 Test Item Value Reference Range Interpretation Comments SODIUM (BEAKER) 133 meq/L 136-145 L (test code = 381) POTASSIUM 3.8 meq/L 3.5-5.1 (BEAKER) (test code = 379) CHLORIDE (BEAKER) 93 meq/L 98-107 L (test code = 382) CO2 (BEAKER) 26 meq/L 22-29 (test code = 355) BLOOD UREA 39 mg/dL 7-21 H NITROGEN (BEAKER) (test code = 354) CREATININE 1.89 mg/dL 0.57-1.25 H (BEAKER) (test code = 358) GLUCOSE RANDOM 140 mg/dL 70-105 H (BEAKER) (test code = 652) CALCIUM (BEAKER) 9.9 mg/dL 8.4-10.2 (test code = 697) EGFR (BEAKER) 45 Interpretatio n of eGFR [...] not appl icable for dialysis patien ts Hand Slitter ID - [id number] 05:15:26 Test Item Value Reference Range Interpretation Comments MAGNESIUM (BEAKER) (test code = 2.4 mg/dL 1.6-2.6 627) Hand Slitter ID - MARCOLACTIC ACID, [id number] 05:10:18 Test Item Value Reference Range Interpretation Comments LACTATE BLOOD VENOUS 1.43 mmol/L 0.50-2.20 Specime n slightly (2) (BEAKER) (test hemolyzed code = 5302) Hand Slitter ID - [id number] 05:08:56 Test Item Value Reference Range Interpretation Comments PARTIAL THROMBOPLASTIN TIME 77.0 seconds 22.5-36.0 H (BEAKER) (test code = 760) PROTHROMBIN [id number] 05:07:18 Test Item Value Reference Range Interpretation Comments PROTIME (BEAKER) (test code = 15.8 seconds 11.9-14.2 H 759) INR (BEAKER) (test code = 370) 1.35 <=5.90 RECOMMENDED COUMADIN/WARFARIN INR THERAPY RANGESSTANDARD DOSE: 2.0 - 3.0 Includes: PROPHYLAXIS for venous thrombosis, systemic embolization; TREATMENT for venous thrombosis and/or pulmonary embolus.HIGH RISK: Target INR is 2.5-3.5 for patients with mechanical heart valves.CBC W/PLT COUNT & AUTO [id number] 04:56:13 Test Item Value Reference Range Interpretation Comments WHITE BLOOD CELL COUNT (BEAKER) 10.1 K/ L 3.5-10.5 (test code = 775) RED BLOOD CELL COUNT (BEAKER) 4.63 M/ L 4.63-6.08 (test code = 761) HEMOGLOBIN (BEAKER) (test code = 12.5 GM/DL 13.7-17.5 L 410) HEMATOCRIT (BEAKER) (test code = 39.4 % 40.1-51.0 L 411) MEAN CORPUSCULAR VOLUME (BEAKER) 85 fL 79-92 (test code = 753) MEAN CORPUSCULAR HEMOGLOBIN 27.0 pg 25.7-32.2 (BEAKER) (test code = 751) MEAN CORPUSCULAR HEMOGLOBIN CONC 31.7 GM/DL 32.3-36.5 L (BEAKER) (test code = 752) RED CELL DISTRIBUTION WIDTH 14.1 % 11.6-14.4 (BEAKER) (test code = 412) PLATELET COUNT (BEAKER) (test 303 K/CU MM 150-450 code = 756) MEAN PLATELET VOLUME (BEAKER) 8.8 fL 9.4-12.4 L (test code = 754) NUCLEATED RED BLOOD CELLS 0 /100 WBC 0-0 (BEAKER) (test code = 413) NEUTROPHILS RELATIVE PERCENT 71 % (BEAKER) (test code = 429) LYMPHOCYTES RELATIVE PERCENT 13 % (BEAKER) (test code = 430) MONOCYTES RELATIVE PERCENT 10 % (BEAKER) (test code = 431) EOSINOPHILS RELATIVE PERCENT 3 % (BEAKER) (test code = 432) BASOPHILS RELATIVE PERCENT 1 % (BEAKER) (test code = 437) NEUTROPHILS ABSOLUTE COUNT 7.19 K/ L 1.78-5.38 H (BEAKER) (test code = 670) LYMPHOCYTES ABSOLUTE COUNT 1.34 K/ L 1.32-3.57 (BEAKER) (test code = 414) MONOCYTES ABSOLUTE COUNT (BEAKER) 1.04 K/ L 0.30-0.82 H (test code = 415) EOSINOPHILS ABSOLUTE COUNT 0.31 K/ L 0.04-0.54 (BEAKER) (test code = 416) BASOPHILS ABSOLUTE COUNT (BEAKER) 0.09 K/ L 0.01-0.08 H (test code = 417) IMMATURE GRANULOCYTES-RELATIVE 1.20 % 0.00-1.00 H PERCENT (BEAKER) (test code = 2801) CREATININE [id number] 23:07:21 Test Item Value Reference Range Interpretation Comments CREATININE CLEARANCE (BEAKER) 42.7 mL/min (test code = 357) VOLUME, TOTAL (BEAKER) (test code 4490 mL = 1457) CREATININE URINE (BEAKER) (test 28.4 mg/dL code = 375) Hand Slitter ID - [id number] 21:34:32 Test Item Value Reference Range Interpretation Comments MAGNESIUM (BEAKER) (test code = 2.4 mg/dL 1.6-2.6 627) Hand Slitter ID - BSBASIC METABOLIC [id number] 21:34:31 Test Item Value Reference Range Interpretation Comments SODIUM (BEAKER) 133 meq/L 136-145 L (test code = 381) POTASSIUM 3.3 meq/L 3.5-5.1 L (BEAKER) (test code = 379) CHLORIDE (BEAKER) 91 meq/L 98-107 L (test code = 382) CO2 (BEAKER) 25 meq/L 22-29 (test code = 355) BLOOD UREA 37 mg/dL 7-21 H NITROGEN (BEAKER) (test code = 354) CREATININE 1.89 mg/dL 0.57-1.25 H (BEAKER) (test code = 358) GLUCOSE RANDOM 162 mg/dL 70-105 H (BEAKER) (test code = 652) CALCIUM (BEAKER) 9.7 mg/dL 8.4-10.2 (test code = 697) EGFR (BEAKER) 45 Interpretatio n of eGFR [...] not appl icable for dialysis patien ts Hand Slitter ID - BSLACTIC ACID, [id number] 20:53:46 Test Item Value Reference Range Interpretation Comments LACTATE BLOOD VENOUS 1.91 mmol/L 0.50-2.20 Specime n slightly (2) (BEAKER) (test hemolyzed code = 2872) Hand Slitter ID - MMOXYGEN SATURATION, [id number] 20:43:42 Test Item Value Reference Range Interpretation Comments O2 SATURATION (MEASURED) (BEAKER) 64.8 % (test code = 1455) POCT-GLUCOSE [id number] 17:25:04 Test Item Value Reference Range Interpretation Comments POC-GLUCOSE METER 145 mg/dL 70-110 H : TESTED A T [facility] (BEAKER) (test code = [place], 1538) [address]: Hand Slitter/Techni macrina ID = [id number] for Donna Goldman OXYGEN SATURATION, [id number] 15:45:03 Test Item Value Reference Range Interpretation Comments O2 SATURATION (MEASURED) (BEAKER) 81.2 % (test code = 1455) [id number] 13:01:03 Test Item Value Reference Range Interpretation Comments MAGNESIUM (BEAKER) (test code = 2.4 mg/dL 1.6-2.6 627) Hand Slitter ID - MMHEPATIC FUNCTION [id number] 13:01:03 Test Item Value Reference Range Interpretation Comments TOTAL PROTEIN (BEAKER) (test code = 8.3 gm/dL 6.0-8.3 770) ALBUMIN (BEAKER) (test code = 1145) 3.7 g/dL 3.5-5.0 BILIRUBIN TOTAL (BEAKER) (test code 0.9 mg/dL 0.2-1.2 = 377) BILIRUBIN DIRECT (BEAKER) (test 0.5 mg/dL 0.1-0.5 code = 706) ALKALINE PHOSPHATASE (BEAKER) (test 79 U/L 40-150 code = 346) AST (SGOT) (BEAKER) (test code = 124 U/L 5-34 H 353) ALT (SGPT) (BEAKER) (test code = 131 U/L 6-55 H 347) Hand Slitter ID - MMBASIC METABOLIC [id number] 13:01:02 Test Item Value Reference Range Interpretation Comments SODIUM (BEAKER) 133 meq/L 136-145 L (test code = 381) POTASSIUM 4.0 meq/L 3.5-5.1 (BEAKER) (test code = 379) CHLORIDE (BEAKER) 95 meq/L 98-107 L (test code = 382) CO2 (BEAKER) 25 meq/L 22-29 (test code = 355) BLOOD UREA 35 mg/dL 7-21 H NITROGEN (BEAKER) (test code = 354) CREATININE 1.73 mg/dL 0.57-1.25 H (BEAKER) (test code = 358) GLUCOSE RANDOM 139 mg/dL 70-105 H (BEAKER) (test code = 652) CALCIUM (BEAKER) 9.7 mg/dL 8.4-10.2 (test code = 697) EGFR (BEAKER) 51 Interpretatio n of eGFR (test code = [...] not appl icable for dialysis patien ts Hand Slitter ID - [id number] 12:19:36 Test Item Value Reference Range Interpretation Comments PARTIAL THROMBOPLASTIN TIME 82.2 seconds 22.5-36.0 H (BEAKER) (test code = 760) LACTIC ACID, [id number] 12:00:24 Test Item Value Reference Range Interpretation Comments LACTATE BLOOD VENOUS 1.48 mmol/L 0.50-2.20 Specime n slightly (2) (BEAKER) (test hemolyzed code = 9349) Hand Slitter ID - MMOXYGEN SATURATION, [id number] 11:55:52 Test Item Value Reference Range Interpretation Comments O2 SATURATION (MEASURED) (BEAKER) 58.6 % (test code = 1455) POCT-GLUCOSE [id number] 11:18:29 Test Item Value Reference Range Interpretation Comments POC-GLUCOSE METER 167 mg/dL 70-110 H : TESTED A T [facility] 6720 (MIA) ([facility], = [facility]38) [id number]: Hand Slitter/Techni macrina ID = [id number] for CED VILLATORO POCT-GLUCOSE [id number] 07:44:47 Test Item Value Reference Range Interpretation Comments POC-GLUCOSE METER 156 mg/dL 70-110 H : TESTED A T [facility] 6720 (MIA) (test [facility] = [facility]) [id number]: Hand Slitter/Techni macrina ID = [id number] for CED VILLATORO RAD, CHEST, 1 VIEW, NON [id number] 07:44:00Reason for exam:->IABPShould this be performed at the bedside?->Yes [facility] 1980 Sex: MFINAL REPORT RAD, CHEST, 1 VIEW, NON DEPT INDICATION: IABP COMPARISON: Prior day's exam FINDINGS: Portable frontal view of the chest. IMPRESSION: Support Lines: *A radiopaque IABP marker is 1.0 cm below the top of the aortic arch. Clinical correlation for axillary and/or femoral placement (to determine if this represents the superior or inferior IABP marker) is recommended as axillaryapproach IABP markers may be obscured by overlying medical devices.*New [place] tip overlies the pulmonary outflow tract. Lungs and pleura: Lungs are clear. No significant pneumothorax. Heart and mediastinum: Stable contours. Stable surgical changes. Additional findings: None. Signed: Natalee Ortaeport Verified Date/Time: 05/11/2022 07:44:26 Electronically signed by: Tru CONRAD 05/11/2022 07:44 [id number] 07:34:14 Test Item Value Reference Range Interpretation Comments PARTIAL THROMBOPLASTIN TIME 79.0 seconds 22.5-36.0 H (BEAKER) (test code = 760) HEPATIC FUNCTION [id number] 06:23:24 Test Item Value Reference Range Interpretation Comments TOTAL PROTEIN (BEAKER) (test code = 8.4 gm/dL 6.0-8.3 H 770) ALBUMIN (BEAKER) (test code = 1145) 3.8 g/dL 3.5-5.0 BILIRUBIN TOTAL (BEAKER) (test code 0.9 mg/dL 0.2-1.2 = 377) BILIRUBIN DIRECT (BEAKER) (test 0.5 mg/dL 0.1-0.5 code = 706) ALKALINE PHOSPHATASE (BEAKER) (test 76 U/L 40-150 code = 346) AST (SGOT) (BEAKER) (test code = 103 U/L 5-34 H 353) ALT (SGPT) (BEAKER) (test code = 111 U/L 6-55 H 347) Hand Slitter ID - [id number] 06:23:23 Test Item Value Reference Range Interpretation Comments MAGNESIUM (BEAKER) (test code = 2.4 mg/dL 1.6-2.6 627) Hand Slitter ID - [id number] 06:23:23 Test Item Value Reference Range Interpretation Comments PHOSPHORUS (BEAKER) (test code = 5.5 mg/dL 2.3-4.7 H 604) Hand Slitter ID - MMBASIC METABOLIC [id number] 06:23:22 Test Item Value Reference Range Interpretation Comments SODIUM (BEAKER) 133 meq/L 136-145 L (test code = 381) POTASSIUM 3.7 meq/L 3.5-5.1 (BEAKER) (test code = 379) CHLORIDE (BEAKER) 93 meq/L 98-107 L (test code = 382) CO2 (BEAKER) 24 meq/L 22-29 (test code = 355) BLOOD UREA 38 mg/dL 7-21 H NITROGEN (BEAKER) (test code = 354) CREATININE 1.79 mg/dL 0.57-1.25 H (BEAKER) (test code = 358) GLUCOSE RANDOM 140 mg/dL 70-105 H (BEAKER) (test code = 652) CALCIUM (BEAKER) 9.8 mg/dL 8.4-10.2 (test code = 697) EGFR (BEAKER) 48 Interpretatio n of eGFR (test code = [...] not appl icable for dialysis patien ts Hand Slitter ID - MMCALCIUM, [id number] 06:02:37 Test Item Value Reference Range Interpretation Comments CALCIUM IONIZED (BEAKER) (test 1.12 mmol/L 1.12-1.27 code = 698) PH, BLOOD (BEAKER) (test code = 7.40 1810) OXYGEN SATURATION, [id number] 06:01:56 Test Item Value Reference Range Interpretation Comments O2 SATURATION (MEASURED) (BEAKER) 76.5 % (test code = 1455) LACTIC ACID, [id number] 05:49:45 Test Item Value Reference Range Interpretation Comments LACTATE BLOOD VENOUS 1.63 mmol/L 0.50-2.20 Specime n slightly (2) (BEAKER) (test hemolyzed code = 2872) Hand Slitter ID - BSPROTHROMBIN [id number] 05:49:07 Test Item Value Reference Range Interpretation Comments PROTIME (BEAKER) (test code = 17.0 seconds 11.9-14.2 H 759) INR (BEAKER) (test code = 370) 1.47 <=5.90 RECOMMENDED COUMADIN/WARFARIN INR THERAPY RANGESSTANDARD DOSE: 2.0 - 3.0 Includes: PROPHYLAXIS for venous thrombosis, systemic embolization; TREATMENT for venous thrombosis and/or pulmonary embolus.HIGH RISK: Target INR is 2.5-3.5 for patients with mechanical heart valves.CBC W/PLT COUNT & AUTO [id number] 05:42:40 Test Item Value Reference Range Interpretation Comments WHITE BLOOD CELL COUNT 10.3 K/ L 3.5-10.5 (BEAKER) (test code = 775) RED BLOOD CELL COUNT 4.56 M/ L 4.63-6.08 L (BEAKER) (test code = 761) HEMOGLOBIN (BEAKER) 12.2 GM/DL 13.7-17.5 L (test code = 410) HEMATOCRIT (BEAKER) 38.8 % 40.1-51.0 L (test code = 411) MEAN CORPUSCULAR 85 fL 79-92 Discordant results VOLUME (BEAKER) (test compar ed to previous code = 753) results; clinic al correlation req uired MEAN CORPUSCULAR 26.8 pg 25.7-32.2 HEMOGLOBIN (BEAKER) (test code = 751) MEAN CORPUSCULAR 31.4 GM/DL 32.3-36.5 L HEMOGLOBIN CONC (BEAKER) (test code = 752) RED CELL DISTRIBUTION 14.2 % 11.6-14.4 WIDTH (BEAKER) (test code = 412) PLATELET COUNT 310 K/CU MM 150-450 (BEAKER) (test code = 756) MEAN PLATELET VOLUME 8.5 fL 9.4-12.4 L (BEAKER) (test code = 754) NUCLEATED RED BLOOD 0 /100 WBC 0-0 CELLS (BEAKER) (test code = 413) NEUTROPHILS RELATIVE 76 % PERCENT (BEAKER) (test code = 429) LYMPHOCYTES RELATIVE 10 % PERCENT (BEAKER) (test code = 430) MONOCYTES RELATIVE 11 % PERCENT (BEAKER) (test code = 431) EOSINOPHILS RELATIVE 1 % PERCENT (BEAKER) (test code = 432) BASOPHILS RELATIVE 1 % PERCENT (BEAKER) (test code = 437) NEUTROPHILS ABSOLUTE 7.87 K/ L 1.78-5.38 H COUNT (BEAKER) (test code = 670) LYMPHOCYTES ABSOLUTE 1.01 K/ L 1.32-3.57 L COUNT (BEAKER) (test code = 414) MONOCYTES ABSOLUTE 1.13 K/ L 0.30-0.82 H COUNT (BEAKER) (test code = 415) EOSINOPHILS ABSOLUTE 0.13 K/ L 0.04-0.54 COUNT (BEAKER) (test code = 416) BASOPHILS ABSOLUTE 0.06 K/ L 0.01-0.08 COUNT (BEAKER) (test code = 417) IMMATURE 1.20 % 0.00-1.00 H GRANULOCYTES-RELATIVE PERCENT (BEAKER) (test code = 2801) [id number] 00:33:45 Test Item Value Reference Range Interpretation Comments MAGNESIUM (BEAKER) (test code = 2.3 mg/dL 1.6-2.6 627) Hand Slitter ID - [id number] 00:33:39 Test Item Value Reference Range Interpretation Comments POTASSIUM (BEAKER) (test code = 3.4 meq/L 3.5-5.1 L 379) Hand Slitter ID - BSLACTIC ACID, [id number] 00:26:45 Test Item Value Reference Range Interpretation Comments LACTATE BLOOD VENOUS 2.61 mmol/L 0.50-2.20 H Specime n slightly (2) (BEAKER) (test hemolyzed code = 2872) Hand Slitter ID - BSHEPATIC FUNCTION [id number] 21:44:32 Test Item Value Reference Range Interpretation Comments TOTAL PROTEIN (BEAKER) (test code = 8.5 gm/dL 6.0-8.3 H 770) ALBUMIN (BEAKER) (test code = 1145) 3.9 g/dL 3.5-5.0 BILIRUBIN TOTAL (BEAKER) (test code 0.9 mg/dL 0.2-1.2 = 377) BILIRUBIN DIRECT (BEAKER) (test 0.4 mg/dL 0.1-0.5 code = 706) ALKALINE PHOSPHATASE (BEAKER) (test 77 U/L 40-150 code = 346) AST (SGOT) (BEAKER) (test code = 61 U/L 5-34 H 353) ALT (SGPT) (BEAKER) (test code = 83 U/L 6-55 H 347) Hand Slitter ID - BSLACTIC ACID, [id number] 21:38:07 Test Item Value Reference Range Interpretation Comments LACTATE BLOOD VENOUS 2.28 mmol/L 0.50-2.20 H Specime n slightly (2) (BEAKER) (test hemolyzed code = 2942) Hand Slitter ID - BSOXYGEN SATURATION, [id number] 21:18:29 Test Item Value Reference Range Interpretation Comments O2 SATURATION (MEASURED) (BEAKER) 79.0 % (test code = 1455) RAD, CHEST, 1 VIEW, NON [id number] 20:18:00Reason for exam:->IABPShould this be performed at the bedside?->Yes [facility] 1980 Sex: MFINAL REPORT EXAM: Chest one view COMPARISON: May 10, 2022 CLINICAL HISTORY: Balloon pump FINDINGS: The marker of the intra-aortic balloon pump appears unchanged in position overlyingthe aortic knob. There is interval change in position of the tip of the [place] catheter overlyingthe left main pulmonary artery. There is persistent cardiomegaly. There is no evidence of pulmonary consolidation, pleural effusion, or pneumothorax. The regional osseous structures are unremarkable. Signed: Ruby Zee MDReport Verified Date/Time: 05/10/2022 20:18:22 BASIC METABOLIC [id number] 19:33:57 Test Item Value Reference Range Interpretation Comments SODIUM (BEAKER) 135 meq/L 136-145 L (test code = 381) POTASSIUM 3.6 meq/L 3.5-5.1 Specimen slight ly (BEAKER) (test hemolyzed code = 379) CHLORIDE (BEAKER) 95 meq/L 98-107 L (test code = 382) CO2 (BEAKER) 26 meq/L 22-29 (test code = 355) BLOOD UREA 34 mg/dL 7-21 H NITROGEN (BEAKER) (test code = 354) CREATININE 1.59 mg/dL 0.57-1.25 H Specimen slight ly (BEAKER) (test hemolyzed code = 358) GLUCOSE RANDOM 141 mg/dL 70-105 H (BEAKER) (test code = 652) CALCIUM (BEAKER) 9.6 mg/dL 8.4-10.2 (test code = 697) EGFR (BEAKER) 56 Interpretatio n of eGFR [...] not appl icable for dialysis patien ts Hand Slitter ID - BSHEPATIC FUNCTION [id number] 19:33:57 Test Item Value Reference Range Interpretation Comments TOTAL PROTEIN (BEAKER) 8.1 gm/dL 6.0-8.3 Speci men slightly (test code = 770) hemolyzed ALBUMIN (BEAKER) (test 3.5 g/dL 3.5-5.0 Speci men slightly code = 1145) hemolyzed BILIRUBIN TOTAL 0.9 mg/dL 0.2-1.2 Specimen sli ghtly (BEAKER) (test code = hemoly zed 377) BILIRUBIN DIRECT 0.3 mg/dL 0.1-0.5 Specimen sl ightly (BEAKER) (test code = hemoly zed 706) ALKALINE PHOSPHATASE 71 U/L 40-150 (BEAKER) (test code = 346) AST (SGOT) (BEAKER) 73 U/L 5-34 H Specimen slightly (test code = 353) hemolyzed ALT (SGPT) (BEAKER) 81 U/L 6-55 H Specimen slightly (test code = 347) hemolyzed Hand Slitter ID - [id number] 19:33:56 Test Item Value Reference Range Interpretation Comments MAGNESIUM (BEAKER) 2.2 mg/dL 1.6-2.6 Specimen slightly (test code = 627) hemolyzed Hand Slitter ID - [id number] 19:24:58 Test Item Value Reference Range Interpretation Comments PARTIAL THROMBOPLASTIN TIME 57.4 seconds 22.5-36.0 H (BEAKER) (test code = 760) LACTIC ACID, [id number] 19:24:37 Test Item Value Reference Range Interpretation Comments LACTATE BLOOD 2.3 mmol/L 0.5-2.2 H Specimen sligh tly ARTERIAL (2) (BEAKER) hemoly zed (test code = 2874) Hand Slitter ID - BSOXYGEN SATURATION, [id number] 19:08:33 Test Item Value Reference Range Interpretation Comments O2 SATURATION (MEASURED) (BEAKER) 67.9 % (test code = 1455) HEPATIC FUNCTION [id number] 18:45:54 Test Item Value Reference Range Interpretation Comments TOTAL PROTEIN (BEAKER) (test code = 7.9 gm/dL 6.0-8.3 770) ALBUMIN (BEAKER) (test code = 1145) 3.6 g/dL 3.5-5.0 BILIRUBIN TOTAL (BEAKER) (test code 0.9 mg/dL 0.2-1.2 = 377) BILIRUBIN DIRECT (BEAKER) (test 0.4 mg/dL 0.1-0.5 code = 706) ALKALINE PHOSPHATASE (BEAKER) (test 73 U/L 40-150 code = 346) AST (SGOT) (BEAKER) (test code = 75 U/L 5-34 H 353) ALT (SGPT) (BEAKER) (test code = 81 U/L 6-55 H 347) Hand Slitter ID - BSPOCT-GLUCOSE [id number] 17:15:41 Test Item Value Reference Range Interpretation Comments POC-GLUCOSE METER 115 mg/dL 70-110 H : TESTED A T [facility] 6720 (BEAKER) (test [facility], = 1538) [address]: Hand Slitter/Techni macrina ID = [id number] for MORENA ALBANATHENCED LACTIC ACID, [id number] 16:46:55 Test Item Value Reference Range Interpretation Comments LACTATE BLOOD VENOUS 1.67 mmol/L 0.50-2.20 Specime n moderately (2) (BEAKER) (test hemolyzed code = 2872) Hand Slitter ID - BSRAD, CHEST, 1 VIEW, NON [id number] 13:40:00Reason for exam:- >IABP placementShould this be performed at the bedside?->Yes [facility] 1980 Sex: MFINAL REPORT CLINICAL HISTORY: IABP placement TECHNIQUE: 1 view of the chest. COMPARISON: 05/10/2022 IMPRESSION: The IABP catheter tip has retracted slightly from the aortic knob apex. Aright jugular [place] catheter remains directed towards the right in the pulmonary flow tract. No infiltrates or effusions. The cardiomediastinal silhouette is magnified by technique. Signed: Raheel Tyson MDRepozarks medical [facility] Verified Date/Time: 05/10/2022 13:40:22 Reading Location: [address] Reading Room COMPREHENSIVE METABOLIC [id number] 12:54:08 Test Item Value Reference Range Interpretation Comments TOTAL PROTEIN 7.9 gm/dL 6.0-8.3 (BEAKER) (test code = 770) ALBUMIN (BEAKER) 3.6 g/dL 3.5-5.0 (test code = 1145) ALKALINE 71 U/L 40-150 PHOSPHATASE (BEAKER) (test code = 346) BILIRUBIN TOTAL 0.9 mg/dL 0.2-1.2 (BEAKER) (test code = 377) SODIUM (BEAKER) 134 meq/L 136-145 L (test code = 381) POTASSIUM (BEAKER) 4.1 meq/L 3.5-5.1 (test code = 379) CHLORIDE (BEAKER) 96 meq/L 98-107 L (test code = 382) CO2 (BEAKER) (test 26 meq/L 22-29 code = 355) BLOOD UREA 37 mg/dL 7-21 H NITROGEN (BEAKER) (test code = 354) CREATININE 1.63 mg/dL 0.57-1.25 H (BEAKER) (test code = 358) GLUCOSE RANDOM 125 mg/dL 70-105 H (BEAKER) (test code = 652) CALCIUM (BEAKER) 9.7 mg/dL 8.4-10.2 (test code = 697) AST (SGOT) 72 U/L 5-34 H (BEAKER) (test code = 353) ALT (SGPT) 82 U/L 6-55 H (BEAKER) (test code = 347) EGFR (BEAKER) 54 Interpretatio n of eGFR (test code = [...] not appl icable for dialysis patien ts Hand Slitter ID - [id number] 12:54:08 Test Item Value Reference Range Interpretation Comments MAGNESIUM (BEAKER) (test code = 2.4 mg/dL 1.6-2.6 627) Hand Slitter ID - MMLACTIC ACID, [id number] 12:44:47 Test Item Value Reference Range Interpretation Comments LACTATE BLOOD VENOUS 2.30 mmol/L 0.50-2.20 H Specime n slightly (2) (BEAKER) (test hemolyzed code = 3292) Hand Slitter ID - MMOXYGEN SATURATION, [id number] 12:33:01 Test Item Value Reference Range Interpretation Comments O2 SATURATION (MEASURED) (MIA) 71.6 % (test code = 1455) POCT-GLUCOSE [id number] 11:08:18 Test Item Value Reference Range Interpretation Comments POC-GLUCOSE METER 118 mg/dL 70-110 H : TESTED Fidel Loredo [facility] 6720 (MIA) (test code [place], = 1538) [address]: Hand Slitter/Techni macrina ID = [id number] for CED VILLATORO RAD, CHEST, 1 VIEW, NON [id number] 11:08:00Reason for exam:->balloon pu,p positionShould this be performed at the bedside?->Yes [facility] 1980 Sex: MFINAL REPORT CLINICAL HISTORY: balloon pump position TECHNIQUE: 1 view of the chest.COMPARISON: 05/10/2022 IMPRESSION: The IABP catheter tip projects at the aortic knob apex. The right jugular [place] catheter is directed towards the right in the pulmonary outflow tract. No infiltrates or effusions. The cardiomediastinal silhouette is magnified by technique. Signed: Raheel Tyson MDReport Verified Date/Time: 05/10/2022 11:08:21 Reading Location: [address] Reading Room RAD, CHEST, 1 VIEW, NON [id number] 11:05:00Reason for exam:->IABPShould this be performed at the bedside?->Yes [facility] : 1980 Sex: MFINAL REPORT CLINICAL HISTORY: IABP TECHNIQUE: 1 view of the chest. COMPARISON: 05/09/2022 IMPRESSION: IABP catheter remains at the aortic knob. New right jugular [place] catheter withits tip in the right pulmonary outflow tract. No infiltrates or effusions. The cardiomediastinal silhouette is magnified by technique. Signed: Raheel Tyson MDReport Verified Date/Time: 05/10/2022 11:05:10 Reading Location: [address] Reading Room HEPATIC FUNCTION [id number] 10:52:10 Test Item Value Reference Range Interpretation Comments TOTAL PROTEIN (BEAKER) (test code = 7.9 gm/dL 6.0-8.3 770) ALBUMIN (BEAKER) (test code = 1145) 3.6 g/dL 3.5-5.0 BILIRUBIN TOTAL (BEAKER) (test code 0.9 mg/dL 0.2-1.2 = 377) BILIRUBIN DIRECT (BEAKER) (test 0.5 mg/dL 0.1-0.5 code = 706) ALKALINE PHOSPHATASE (BEAKER) (test 72 U/L 40-150 code = 346) AST (SGOT) (BEAKER) (test code = 87 U/L 5-34 H 353) ALT (SGPT) (BEAKER) (test code = 79 U/L 6-55 H 347) Hand Slitter ID - [id number] 10:33:21 Test Item Value Reference Range Interpretation Comments PARTIAL THROMBOPLASTIN TIME 80.0 seconds 22.5-36.0 H (BEAKER) (test code = 760) POCT-GLUCOSE [id number] 10:19:18 Test Item Value Reference Range Interpretation Comments POC-GLUCOSE METER 114 mg/dL 70-110 H : TESTED A T [facility] 6720 (BEAKER) (test code = FILEMON Fuentes [facility], 1538) [address]: Hand Slitter/Techni macrina ID = [id number] for Karrie Horner OXYGEN SATURATION, [id number] 10:14:16 Test Item Value Reference Range Interpretation Comments O2 SATURATION (MEASURED) (BEAKER) 48.7 % (test code = 1455) POCT-GLUCOSE [id number] 07:58:04 Test Item Value Reference Range Interpretation Comments POC-GLUCOSE METER 103 mg/dL 70-110 : TESTED A T [facility] 6720 (BEAKER) (test [facility], = 1538) [address]: Hand Slitter/Techni macrina ID = [id number] for CED VILLATORO LACTIC ACID, [id number] 05:12:44 Test Item Value Reference Range Interpretation Comments LACTATE BLOOD VENOUS 1.21 mmol/L 0.50-2.20 Specime n moderately (2) (BEAKER) (test hemolyzed code = 2872) Hand Slitter ID - [id number] 05:12:22 Test Item Value Reference Range Interpretation Comments PHOSPHORUS (BEAKER) (test code = 4.7 mg/dL 2.3-4.7 604) Hand Slitter ID - MMBASIC METABOLIC [id number] 05:12:21 Test Item Value Reference Range Interpretation Comments SODIUM (BEAKER) 135 meq/L 136-145 L (test code = 381) POTASSIUM 4.0 meq/L 3.5-5.1 (BEAKER) (test code = 379) CHLORIDE (BEAKER) 96 meq/L 98-107 L (test code = 382) CO2 (BEAKER) 26 meq/L 22-29 (test code = 355) BLOOD UREA 41 mg/dL 7-21 H NITROGEN (BEAKER) (test code = 354) CREATININE 1.58 mg/dL 0.57-1.25 H (BEAKER) (test code = 358) GLUCOSE RANDOM 105 mg/dL 70-105 (BEAKER) (test code = 652) CALCIUM (BEAKER) 9.0 mg/dL 8.4-10.2 (test code = 697) EGFR (BEAKER) 56 Interpretatio n of eGFR [...] not appl icable for dialysis patien ts Hand Slitter ID - [id number] 05:12:21 Test Item Value Reference Range Interpretation Comments MAGNESIUM (BEAKER) (test code = 2.4 mg/dL 1.6-2.6 627) Hand Slitter ID - [id number] 05:11:01 Test Item Value Reference Range Interpretation Comments PROTIME (BEAKER) (test code = 16.5 seconds 11.9-14.2 H 759) INR (BEAKER) (test code = 370) 1.36 <=5.90 RECOMMENDED COUMADIN/WARFARIN INR THERAPY RANGESSTANDARD DOSE: 2.0 - 3.0 Includes: PROPHYLAXIS for venous thrombosis, systemic embolization; TREATMENT for venous thrombosis and/or pulmonary embolus.HIGH RISK: Target INR is 2.5-3.5 for patients with mechanical heart valves.CBC W/PLT COUNT & AUTO [id number] 04:53:35 Test Item Value Reference Range Interpretation Comments WHITE BLOOD CELL COUNT (BEAKER) 10.0 K/ L 3.5-10.5 (test code = 775) RED BLOOD CELL COUNT (BEAKER) 4.15 M/ L 4.63-6.08 L (test code = 761) HEMOGLOBIN (BEAKER) (test code = 11.3 GM/DL 13.7-17.5 L 410) HEMATOCRIT (BEAKER) (test code = 37.0 % 40.1-51.0 L 411) MEAN CORPUSCULAR VOLUME (BEAKER) 89 fL 79-92 (test code = 753) MEAN CORPUSCULAR HEMOGLOBIN 27.2 pg 25.7-32.2 (BEAKER) (test code = 751) MEAN CORPUSCULAR HEMOGLOBIN CONC 30.5 GM/DL 32.3-36.5 L (BEAKER) (test code = 752) RED CELL DISTRIBUTION WIDTH 14.5 % 11.6-14.4 H (BEAKER) (test code = 412) PLATELET COUNT (BEAKER) (test 321 K/CU MM 150-450 code = 756) MEAN PLATELET VOLUME (BEAKER) 9.1 fL 9.4-12.4 L (test code = 754) NUCLEATED RED BLOOD CELLS 0 /100 WBC 0-0 (BEAKER) (test code = 413) NEUTROPHILS RELATIVE PERCENT 76 % (BEAKER) (test code = 429) LYMPHOCYTES RELATIVE PERCENT 10 % (BEAKER) (test code = 430) MONOCYTES RELATIVE PERCENT 10 % (BEAKER) (test code = 431) EOSINOPHILS RELATIVE PERCENT 1 % (BEAKER) (test code = 432) BASOPHILS RELATIVE PERCENT 1 % (BEAKER) (test code = 437) NEUTROPHILS ABSOLUTE COUNT 7.57 K/ L 1.78-5.38 H (BEAKER) (test code = 670) LYMPHOCYTES ABSOLUTE COUNT 1.02 K/ L 1.32-3.57 L (BEAKER) (test code = 414) MONOCYTES ABSOLUTE COUNT (BEAKER) 1.03 K/ L 0.30-0.82 H (test code = 415) EOSINOPHILS ABSOLUTE COUNT 0.12 K/ L 0.04-0.54 (BEAKER) (test code = 416) BASOPHILS ABSOLUTE COUNT (BEAKER) 0.09 K/ L 0.01-0.08 H (test code = 417) IMMATURE GRANULOCYTES-RELATIVE 1.30 % 0.00-1.00 H PERCENT (BEAKER) (test code = 2801) CALCIUM, [id number] 04:43:48 Test Item Value Reference Range Interpretation Comments CALCIUM IONIZED (BEAKER) (test 1.13 mmol/L 1.12-1.27 code = 698) PH, BLOOD (BEAKER) (test code = 7.40 1810) OXYGEN SATURATION, [id number] 04:43:13 Test Item Value Reference Range Interpretation Comments O2 SATURATION (MEASURED) (BEAKER) 64.0 % (test code = 1455) [id number] 01:10:23 Test Item Value Reference Range Interpretation Comments PARTIAL THROMBOPLASTIN TIME 63.0 seconds 22.5-36.0 H (BEAKER) (test code = 760) [id number] 21:53:27 Test Item Value Reference Range Interpretation Comments MAGNESIUM (BEAKER) 2.6 mg/dL 1.6-2.6 Specimen slightly (test code = 627) hemolyzed Hand Slitter ID - BSBASIC METABOLIC [id number] 21:53:27 Test Item Value Reference Range Interpretation Comments SODIUM (BEAKER) 133 meq/L 136-145 L (test code = 381) POTASSIUM 4.3 meq/L 3.5-5.1 Specimen slight ly (BEAKER) (test hemolyzed code = 379) CHLORIDE (BEAKER) 97 meq/L 98-107 L (test code = 382) CO2 (BEAKER) 25 meq/L 22-29 (test code = 355) BLOOD UREA 45 mg/dL 7-21 H NITROGEN (BEAKER) (test code = 354) CREATININE 1.61 mg/dL 0.57-1.25 H Specimen slight ly (BEAKER) (test hemolyzed code = 358) GLUCOSE RANDOM 125 mg/dL 70-105 H (BEAKER) (test code = 652) CALCIUM (BEAKER) 9.9 mg/dL 8.4-10.2 (test code = 697) EGFR (BEAKER) 55 [...] not appl icable for dialysis patien ts Hand Slitter ID - BSPOCT-GLUCOSE [id number] 21:33:05 Test Item Value Reference Range Interpretation Comments POC-GLUCOSE METER 130 mg/dL 70-110 H : Notified RN/: (BEAKER) (test code = TESTED AT [facility] 67[address] 5244) [place], [address]: Hand Slitter/Techni macrina ID = [id number] for LUC ZAMORA BASIC METABOLIC [id number] 12:20:33 Test Item Value Reference Range Interpretation Comments SODIUM (BEAKER) 134 meq/L 136-145 L (test code = 381) POTASSIUM 3.7 meq/L 3.5-5.1 Specimen slight ly (BEAKER) (test hemolyzed code = 379) CHLORIDE (BEAKER) 93 meq/L 98-107 L (test code = 382) CO2 (BEAKER) 27 meq/L 22-29 (test code = 355) BLOOD UREA 44 mg/dL 7-21 H NITROGEN (BEAKER) (test code = 354) CREATININE 1.64 mg/dL 0.57-1.25 H Specimen slight ly (BEAKER) (test hemolyzed code = 358) GLUCOSE RANDOM 107 mg/dL 70-105 H (BEAKER) (test code = 652) CALCIUM (BEAKER) 10.5 mg/dL 8.4-10.2 H (test code = 697) EGFR (BEAKER) 54 Interpretatio n of eGFR (test code = [...] not appl icable for dialysis patien ts Hand Slitter ID - [id number] 12:20:32 Test Item Value Reference Range Interpretation Comments MAGNESIUM (BEAKER) 2.5 mg/dL 1.6-2.6 Specimen slightly (test code = 627) hemolyzed Hand Slitter ID - MARIOPOCT-GLUCOSE [id number] 10:48:59 Test Item Value Reference Range Interpretation Comments POC-GLUCOSE METER 120 mg/dL 70-110 H : TESTED A T [facility] 6720 (BEAKER) (test code = [place], 1538) [address]: Hand Slitter/Techni macrina ID = [id number] for GILBERTO HUMPHREYS RAD, CHEST, 1 VIEW, NON [id number] 09:45:00Reason for exam:->IABPShould this be performed at the bedside?->Yes [facility] : 1980 Sex: MFINAL REPORT CLINICAL HISTORY: IABP TECHNIQUE: 1 view of the chest. COMPARISON: 05/08/2022 IMPRESSION: The IABP remains at the aortic knob. A right jugular line is again seen in the SVC.No infiltrates or significant effusions. The cardiomediastinal silhouette is magnified by technique.Signed: Raheel Tyson Verified Date/Time: 05/09/2022 09:45:45 Reading Location: [address] Reading Room POCT-GLUCOSE [id number] 07:33:17 Test Item Value Reference Range Interpretation Comments POC-GLUCOSE METER 128 mg/dL 70-110 H : TESTED A T [facility] [address] (MIA) (test code = [place], 1538) [address]: Hand Slitter/Techni macrina ID = [id number] for GILBERTO HUMPHREYS [id number] 05:38:28 Test Item Value Reference Range Interpretation Comments PARTIAL THROMBOPLASTIN TIME 100.5 seconds 22.5-36.0 H (MIA) (test code = 760) PROTHROMBIN TIME/[id number] 05:30:29 Test Item Value Reference Range Interpretation Comments PROTIME (BEAKER) (test code = 17.2 seconds 11.9-14.2 H 759) INR (BEAKER) (test code = 370) 1.50 <=5.90 RECOMMENDED COUMADIN/WARFARIN INR THERAPY RANGESSTANDARD DOSE: 2.0 - 3.0 Includes: PROPHYLAXIS for venous thrombosis, systemic embolization; TREATMENT for venous thrombosis and/or pulmonary embolus.HIGH RISK: Target INR is 2.5-3.5 for patients with mechanical heart valves.[id number] 05:24:08 Test Item Value Reference Range Interpretation Comments PHOSPHORUS (BEAKER) (test code = 5.1 mg/dL 2.3-4.7 H 604) Hand Slitter ID - MARIOBASIC METABOLIC [id number] 05:24:07 Test Item Value Reference Range Interpretation Comments SODIUM (BEAKER) 131 meq/L 136-145 L (test code = 381) POTASSIUM 3.5 meq/L 3.5-5.1 (BEAKER) (test code = 379) CHLORIDE (BEAKER) 89 meq/L 98-107 L (test code = 382) CO2 (BEAKER) 29 meq/L 22-29 (test code = 355) BLOOD UREA 42 mg/dL 7-21 H NITROGEN (BEAKER) (test code = 354) CREATININE 1.71 mg/dL 0.57-1.25 H (BEAKER) (test code = 358) GLUCOSE RANDOM 120 mg/dL 70-105 H (BEAKER) (test code = 652) CALCIUM (BEAKER) 10.8 mg/dL 8.4-10.2 H (test code = 697) EGFR (BEAKER) 51 Interpretatio n of eGFR (test code = [...] not appl icable for dialysis patien ts Hand Slitter ID - [id number] 05:24:07 Test Item Value Reference Range Interpretation Comments MAGNESIUM (BEAKER) (test code = 2.6 mg/dL 1.6-2.6 627) Hand Slitter ID - MARIOLACTIC ACID, [id number] 05:18:31 Test Item Value Reference Range Interpretation Comments LACTATE BLOOD VENOUS 0.91 mmol/L 0.50-2.20 Specime n slightly (2) (BEAKER) (test hemolyzed code = 3102) Hand Slitter ID - MARIOCBC W/PLT COUNT & AUTO [id number] 05:15:06 Test Item Value Reference Range Interpretation Comments WHITE BLOOD CELL COUNT (BEAKER) 11.2 K/ L 3.5-10.5 H (test code = 775) RED BLOOD CELL COUNT (BEAKER) 4.21 M/ L 4.63-6.08 L (test code = 761) HEMOGLOBIN (BEAKER) (test code = 11.6 GM/DL 13.7-17.5 L 410) HEMATOCRIT (BEAKER) (test code = 37.2 % 40.1-51.0 L 411) MEAN CORPUSCULAR VOLUME (BEAKER) 88 fL 79-92 (test code = 753) MEAN CORPUSCULAR HEMOGLOBIN 27.6 pg 25.7-32.2 (BEAKER) (test code = 751) MEAN CORPUSCULAR HEMOGLOBIN CONC 31.2 GM/DL 32.3-36.5 L (BEAKER) (test code = 752) RED CELL DISTRIBUTION WIDTH 14.5 % 11.6-14.4 H (BEAKER) (test code = 412) PLATELET COUNT (BEAKER) (test 348 K/CU MM 150-450 code = 756) MEAN PLATELET VOLUME (BEAKER) 8.7 fL 9.4-12.4 L (test code = 754) NUCLEATED RED BLOOD CELLS 0 /100 WBC 0-0 (BEAKER) (test code = 413) NEUTROPHILS RELATIVE PERCENT 77 % (BEAKER) (test code = 429) LYMPHOCYTES RELATIVE PERCENT 9 % (BEAKER) (test code = 430) MONOCYTES RELATIVE PERCENT 12 % (BEAKER) (test code = 431) EOSINOPHILS RELATIVE PERCENT 1 % (BEAKER) (test code = 432) BASOPHILS RELATIVE PERCENT 0 % (BEAKER) (test code = 437) NEUTROPHILS ABSOLUTE COUNT 8.61 K/ L 1.78-5.38 H (BEAKER) (test code = 670) LYMPHOCYTES ABSOLUTE COUNT 0.97 K/ L 1.32-3.57 L (BEAKER) (test code = 414) MONOCYTES ABSOLUTE COUNT (BEAKER) 1.36 K/ L 0.30-0.82 H (test code = 415) EOSINOPHILS ABSOLUTE COUNT 0.07 K/ L 0.04-0.54 (BEAKER) (test code = 416) BASOPHILS ABSOLUTE COUNT (BEAKER) 0.05 K/ L 0.01-0.08 (test code = 417) IMMATURE GRANULOCYTES-RELATIVE 0.90 % 0.00-1.00 PERCENT (BEAKER) (test code = 2801) OXYGEN SATURATION, [id number] 05:12:08 Test Item Value Reference Range Interpretation Comments O2 SATURATION (MEASURED) (BEAKER) 75.1 % (test code = 1455) CALCIUM, [id number] 05:11:21 Test Item Value Reference Range Interpretation Comments CALCIUM IONIZED (BEAKER) (test 1.20 mmol/L 1.12-1.27 code = 698) PH, BLOOD (BEAKER) (test code = 7.42 1810) POCT-GLUCOSE [id number] 21:30:57 Test Item Value Reference Range Interpretation Comments POC-GLUCOSE METER 143 mg/dL 70-110 H : TESTED A T [facility] 6720 (BEAKER) (test code = [place], 1538) [address]: Hand Slitter/Techni macrina ID = [id number] for ON JOYA BORGES [id number] 21:27:00 Test Item Value Reference Range Interpretation Comments MAGNESIUM (BEAKER) 2.6 mg/dL 1.6-2.6 Specimen slightly (test code = 627) hemolyzed Hand Slitter ID - ADMINBASIC METABOLIC [id number] 21:27:00 Test Item Value Reference Range Interpretation Comments SODIUM (BEAKER) 133 meq/L 136-145 L (test code = 381) POTASSIUM 3.8 meq/L 3.5-5.1 Specimen slight ly (BEAKER) (test hemolyzed code = 379) CHLORIDE (BEAKER) 89 meq/L 98-107 L (test code = 382) CO2 (BEAKER) 31 meq/L 22-29 H (test code = 355) BLOOD UREA 35 mg/dL 7-21 H NITROGEN (BEAKER) (test code = 354) CREATININE 1.83 mg/dL 0.57-1.25 H Specimen slight ly (BEAKER) (test hemolyzed code = 358) GLUCOSE RANDOM 127 mg/dL 70-105 H (BEAKER) (test code = 652) CALCIUM (BEAKER) 10.8 mg/dL 8.4-10.2 H (test code = 697) EGFR (BEAKER) 47 Interpretatio n of eGFR (test code = [...] not appl icable for dialysis patien ts Hand Slitter ID - [id number] 21:15:18 Test Item Value Reference Range Interpretation Comments PARTIAL THROMBOPLASTIN TIME 86.2 seconds 22.5-36.0 H (BEAKER) (test code = 760) POCT-GLUCOSE [id number] 17:45:52 Test Item Value Reference Range Interpretation Comments POC-GLUCOSE METER 144 mg/dL 70-110 H : TESTED A T [facility] 6720 (BEAKER) (test code = FILEMON Fuentes [facility], 1538) [address]: Hand Slitter/Techni macrina ID = [id number] for Kaye Lee [id number] 13:32:06 Test Item Value Reference Range Interpretation Comments PARTIAL THROMBOPLASTIN TIME 83.1 seconds 22.5-36.0 H (BEAKER) (test code = 760) BASIC METABOLIC [id number] 12:03:42 Test Item Value Reference Range Interpretation Comments SODIUM (BEAKER) 136 meq/L 136-145 (test code = 381) POTASSIUM 3.7 meq/L 3.5-5.1 (BEAKER) (test code = 379) CHLORIDE (BEAKER) 95 meq/L 98-107 L (test code = 382) CO2 (BEAKER) 33 meq/L 22-29 H (test code = 355) BLOOD UREA 30 mg/dL 7-21 H NITROGEN (BEAKER) (test code = 354) CREATININE 1.85 mg/dL 0.57-1.25 H (BEAKER) (test code = 358) GLUCOSE RANDOM 152 mg/dL 70-105 H (BEAKER) (test code = 652) CALCIUM (BEAKER) 10.1 mg/dL 8.4-10.2 (test code = 697) EGFR (BEAKER) 47 Interpretatio n of eGFR (test code = [...] not appl icable for dialysis patien ts Hand Slitter ID - [id number] 12:03:42 Test Item Value Reference Range Interpretation Comments MAGNESIUM (BEAKER) (test code = 2.4 mg/dL 1.6-2.6 627) Hand Slitter ID - ADMINPOCT-GLUCOSE [id number] 11:43:14 Test Item Value Reference Range Interpretation Comments POC-GLUCOSE METER 162 mg/dL 70-110 H : [facility] (BE[facility]ER) (test code = SALOMEFRANK Fuentes [facility], 1538) [address]: Hand Slitter/Techni macrina ID = [id number] for Donna Goldman OXYGEN SATURATION, [id number] 09:46:27 Test Item Value Reference Range Interpretation Comments O2 SATURATION (MEASURED) (BEAKER) 86.8 % (test code = 1455) POCT-GLUCOSE [id number] 08:35:55 Test Item Value Reference Range Interpretation Comments POC-GLUCOSE METER 146 mg/dL 70-110 H : TESTED A T [facility] 6720 (BEAKER) (test code = [place], 1538) [address]: Hand Slitter/Techni macrina ID = [id number] for Donna Goldman [id number] 06:30:17 Test Item Value Reference Range Interpretation Comments PARTIAL THROMBOPLASTIN TIME 45.9 seconds 22.5-36.0 H (BEAKER) (test code = 760) CBC W/PLT COUNT & AUTO [id number] 05:01:17 Test Item Value Reference Range Interpretation Comments WHITE BLOOD CELL COUNT (BEAKER) 10.8 K/ L 3.5-10.5 H (test code = 775) RED BLOOD CELL COUNT (BEAKER) 4.31 M/ L 4.63-6.08 L (test code = 761) HEMOGLOBIN (BEAKER) (test code = 11.6 GM/DL 13.7-17.5 L 410) HEMATOCRIT (BEAKER) (test code = 37.5 % 40.1-51.0 L 411) MEAN CORPUSCULAR VOLUME (BEAKER) 87 fL 79-92 (test code = 753) MEAN CORPUSCULAR HEMOGLOBIN 26.9 pg 25.7-32.2 (BEAKER) (test code = 751) MEAN CORPUSCULAR HEMOGLOBIN CONC 30.9 GM/DL 32.3-36.5 L (BEAKER) (test code = 752) RED CELL DISTRIBUTION WIDTH 14.5 % 11.6-14.4 H (BEAKER) (test code = 412) PLATELET COUNT (BEAKER) (test 411 K/CU MM 150-450 code = 756) MEAN PLATELET VOLUME (BEAKER) 8.9 fL 9.4-12.4 L (test code = 754) NUCLEATED RED BLOOD CELLS 0 /100 WBC 0-0 (BEAKER) (test code = 413) NEUTROPHILS RELATIVE PERCENT 76 % (BEAKER) (test code = 429) LYMPHOCYTES RELATIVE PERCENT 9 % (BEAKER) (test code = 430) MONOCYTES RELATIVE PERCENT 13 % (BEAKER) (test code = 431) EOSINOPHILS RELATIVE PERCENT 0 % (BEAKER) (test code = 432) BASOPHILS RELATIVE PERCENT 1 % (BEAKER) (test code = 437) NEUTROPHILS ABSOLUTE COUNT 8.20 K/ L 1.78-5.38 H (BEAKER) (test code = 670) LYMPHOCYTES ABSOLUTE COUNT 0.96 K/ L 1.32-3.57 L (BEAKER) (test code = 414) MONOCYTES ABSOLUTE COUNT (BEAKER) 1.42 K/ L 0.30-0.82 H (test code = 415) EOSINOPHILS ABSOLUTE COUNT 0.04 K/ L 0.04-0.54 (BEAKER) (test code = 416) BASOPHILS ABSOLUTE COUNT (BEAKER) 0.06 K/ L 0.01-0.08 (test code = 417) IMMATURE GRANULOCYTES-RELATIVE 0.80 % 0.00-1.00 PERCENT (BEAKER) (test code = 2801) [id number] 04:50:42 Test Item Value Reference Range Interpretation Comments MAGNESIUM (BEAKER) (test code = 2.4 mg/dL 1.6-2.6 627) Hand Slitter ID - [id number] 04:50:42 Test Item Value Reference Range Interpretation Comments PHOSPHORUS (BEAKER) (test code = 4.3 mg/dL 2.3-4.7 604) Hand Slitter ID - ADMINBASIC METABOLIC [id number] 04:50:41 Test Item Value Reference Range Interpretation Comments SODIUM (BEAKER) 137 meq/L 136-145 (test code = 381) POTASSIUM 3.6 meq/L 3.5-5.1 (BEAKER) (test code = 379) CHLORIDE (BEAKER) 94 meq/L 98-107 L (test code = 382) CO2 (BEAKER) 30 meq/L 22-29 H (test code = 355) BLOOD UREA 30 mg/dL 7-21 H NITROGEN (BEAKER) (test code = 354) CREATININE 1.94 mg/dL 0.57-1.25 H (BEAKER) (test code = 358) GLUCOSE RANDOM 140 mg/dL 70-105 H (BEAKER) (test code = 652) CALCIUM (BEAKER) 10.4 mg/dL 8.4-10.2 H (test code = 697) EGFR (BEAKER) 44 Interpretatio n of eGFR (test code = [...] not appl icable for dialysis patien ts Hand Slitter ID - ADMINLACTIC ACID, [id number] 04:30:30 Test Item Value Reference Range Interpretation Comments LACTATE BLOOD VENOUS 1.19 mmol/L 0.50-2.20 Specime n slightly (2) (BEAKER) (test hemolyzed code = 2872) Hand Slitter ID - [id number] 04:20:28 Test Item Value Reference Range Interpretation Comments PARTIAL THROMBOPLASTIN TIME 43.6 seconds 22.5-36.0 H (BEAKER) (test code = 760) PROTHROMBIN [id number] 04:19:28 Test Item Value Reference Range Interpretation Comments PROTIME (BEAKER) (test code = 16.5 seconds 11.9-14.2 H 759) INR (BEAKER) (test code = 370) 1.42 <=5.90 RECOMMENDED COUMADIN/WARFARIN INR THERAPY RANGESSTANDARD DOSE: 2.0 - 3.0 Includes: PROPHYLAXIS for venous thrombosis, systemic embolization; TREATMENT for venous thrombosis and/or pulmonary embolus.HIGH RISK: Target INR is 2.5-3.5 for patients with mechanical heart valves.CALCIUM, [id number] 04:02:42 Test Item Value Reference Range Interpretation Comments CALCIUM IONIZED (BEAKER) (test 1.16 mmol/L 1.12-1.27 code = 698) PH, BLOOD (BEAKER) (test code = 7.44 1810) OXYGEN SATURATION, [id number] 04:01:21 Test Item Value Reference Range Interpretation Comments O2 SATURATION (MEASURED) (BEAKER) 74.2 % (test code = 1455) RAD, CHEST, 1 VIEW, NON [id number] 01:01:00Reason for exam:->iabpShould this be performed at the bedside?->Yes [facility] 1980 Sex: MFINAL REPORT CLINICAL INDICATION: iabp Comparison: 05/06/2022 The radiopaque tip of an IABP is located 1.5 cm caudal to the superior margin of the aortic arch. The cardiomediastinal contours are stable. The lung volumes are low. Vague infrahilar opacities suggest atelectasis. Pneumonitis should be excluded clinically. There is no pneumothorax or large pleural effusion. A right IJ CVC remains in place. Signed: Connie Bonilla [facility] Verified Date/Time: 05/08/2022 01:01:15 RAD, CHEST, 1 VIEW, NON [id number] 00:52:00Reason for exam:- >confirm IABP placementShould this be performed at the bedside?->Yes [facility] 1980 Sex: MFINAL REPORT TECHNIQUE: Frontal view of the chest. INDICATION: confirm IABP placement. COMPARISON: 05/06/2022. FINDINGS: LINES/TUBES: Right IJ central venous catheter with tip projectingover the distal SVC. Metallic marker of intra-aortic balloon pump projects approximately 4.5 cm below the top of the aortic knob. HEART AND MEDIASTINUM: Cardiomediastinal contour is stable. LUNGS: Slight decrease in lung volumes. No consolidation or pulmonary edema. PLEURA: No pneumothorax. No significant pleural effusion. SOFT TISSUES AND BONES: Unremarkable. IMPRESSION: 1. Intra-aortic balloon pumpmetallic marker tip projected 4.5 cm below the top of the aortic knob. Right IJ catheter remains unchanged. No pneumothorax.2. Slight decrease in lung volumes. No pulmonary edema or focal consolidativeprocess. Signed: Rd Packer [facility] Verified Date/Time: 05/08/2022 00:52:35 B-TYPE NATRIURETIC FACTOR (BNP)2022-05-07 21:03:28 Test Item Value Reference Range Interpretation Comments B-TYPE NATRIURETIC PEPTIDE 2143 pg/mL 0-100 H (BEAKER) (test code = 700) Hand Slitter ID - [id number] 21:02:32 Test Item Value Reference Range Interpretation Comments MAGNESIUM (BEAKER) (test code = 2.6 mg/dL 1.6-2.6 627) Hand Slitter ID - ADMINBASIC METABOLIC [id number] 21:02:31 Test Item Value Reference Range Interpretation Comments SODIUM (BEAKER) 138 meq/L 136-145 (test code = 381) POTASSIUM 4.4 meq/L 3.5-5.1 (BEAKER) (test code = 379) CHLORIDE (BEAKER) 93 meq/L 98-107 L (test code = 382) CO2 (BEAKER) 31 meq/L 22-29 H (test code = 355) BLOOD UREA 29 mg/dL 7-21 H NITROGEN (BEAKER) (test code = 354) CREATININE 2.15 mg/dL 0.57-1.25 H (BEAKER) (test code = 358) GLUCOSE RANDOM 154 mg/dL 70-105 H (BEAKER) (test code = 652) CALCIUM (BEAKER) 10.5 mg/dL 8.4-10.2 H (test code = 697) EGFR (BEAKER) 39 Interpretatio n of eGFR (test code = [...] not appl icable for dialysis patien ts Hand Slitter ID - ADMINPOCT-GLUCOSE [id number] 21:00:05 Test Item Value Reference Range Interpretation Comments POC-GLUCOSE METER 145 mg/dL 70-110 H : TESTED A T [facility] 6720 (simpleFLOORS) (test code = [place], 1538) [address]: Hand Slitter/Techni macrina ID = [id number] for AL I (V), CANDY LACTIC ACID, [id number] 20:58:11 Test Item Value Reference Range Interpretation Comments LACTATE BLOOD VENOUS 2.04 mmol/L 0.50-2.20 Specime n slightly (2) (BEAKER) (test hemolyzed code = 8330) Hand Slitter ID - ADMINOXYGEN SATURATION, [id number] 20:53:11 Test Item Value Reference Range Interpretation Comments O2 SATURATION (MEASURED) (BEAKER) 45.7 % (test code = 1455) OXYGEN SATURATION, [id number] 20:39:08 Test Item Value Reference Range Interpretation Comments O2 SATURATION (MEASURED) (BEAKER) 50.9 % (test code = 1455) BLOOD [id number] 18:00:23 Test Item Value Reference Range Interpretation Comments CULTURE (BEAKER) (test No growth in 5 days code = 1095) BLOOD [id number] 18:00:22 Test Item Value Reference Range Interpretation Comments CULTURE (BEAKER) (test No growth in 5 days code = 1095) POCT-GLUCOSE [id number] 16:03:56 Test Item Value Reference Range Interpretation Comments POC-GLUCOSE METER 160 mg/dL 70-110 H : TESTED A T [facility] 6720 (simpleFLOORS) (test code = FILEMON Alfredo [facility], 1538) [address]: Hand Slitter/Techni macrina ID = [id number] for Donna Goldman [id number] 15:50:15 Test Item Value Reference Range Interpretation Comments PARTIAL THROMBOPLASTIN TIME 58.8 seconds 22.5-36.0 H (BEAKER) (test code = 760) LACTIC ACID, [id number] 15:48:57 Test Item Value Reference Range Interpretation Comments LACTATE BLOOD VENOUS 2.07 mmol/L 0.50-2.20 Specime n slightly (2) (BEAKER) (test hemolyzed code = 2872) Hand Slitter ID - MARCOOXYGEN SATURATION, [id number] 15:36:52 Test Item Value Reference Range Interpretation Comments O2 SATURATION (MEASURED) (BEAKER) 58.0 % (test code = 1455) SPUTUM CULTURE + GRAM [id number] 12:15:50 Test Item Value Reference Range Interpretation Comments CULTURE (BEAKER) 2+ Normal respiratory (test code = 1095) yoav present GRAM STAIN RESULT 1+ WBCs (BEAKER) (test code = 1123) GRAM STAIN RESULT 5-10 epithelial cells (BEAKER) (test code = 853562) GRAM STAIN RESULT <1+ gram negative rods (BEAKER) (test code = 503548) GRAM STAIN RESULT <1+ gram positive cocci (BEAKER) (test code = in clusters 991580) BASIC METABOLIC [id number] 11:46:10 Test Item Value Reference Range Interpretation Comments SODIUM (BEAKER) 135 meq/L 136-145 L (test code = 381) POTASSIUM 3.7 meq/L 3.5-5.1 (BEAKER) (test code = 379) CHLORIDE (BEAKER) 94 meq/L 98-107 L (test code = 382) CO2 (BEAKER) 29 meq/L 22-29 (test code = 355) BLOOD UREA 25 mg/dL 7-21 H NITROGEN (BEAKER) (test code = 354) CREATININE 1.93 mg/dL 0.57-1.25 H (BEAKER) (test code = 358) GLUCOSE RANDOM 216 mg/dL 70-105 H (BEAKER) (test code = 652) CALCIUM (BEAKER) 9.2 mg/dL 8.4-10.2 (test code = 697) EGFR (BEAKER) 44 Interpretatio n of eGFR (test code = [...] not appl icable for dialysis patien ts Hand Slitter ID - [id number] 11:46:10 Test Item Value Reference Range Interpretation Comments MAGNESIUM (BEAKER) (test code = 2.4 mg/dL 1.6-2.6 627) Hand Slitter ID - ADMINPOCT-GLUCOSE [id number] 11:33:15 Test Item Value Reference Range Interpretation Comments POC-GLUCOSE METER 145 mg/dL 70-110 H : TESTED A T [facility] 6720 (BEAKER) (test code = [facility], 1538) [address]: Hand Slitter/Techni macrina ID = [id number] for Donna Goldman [id number] 09:29:07 Test Item Value Reference Range Interpretation Comments PARTIAL THROMBOPLASTIN TIME 38.2 seconds 22.5-36.0 H (BEAKER) (test code = 760) [id number] 08:38:07 Test Item Value Reference Range Interpretation Comments PARTIAL THROMBOPLASTIN TIME 141.3 seconds 22.5-36.0 H (BEAKER) (test code = 760) POCT-GLUCOSE [id number] 07:53:31 Test Item Value Reference Range Interpretation Comments POC-GLUCOSE METER 159 mg/dL 70-110 H : TESTED A T [facility] 6720 (BEAKER) (test code = FILEMON Fuentes [facility], 1538) [address]: Hand Slitter/Techni macrina ID = [id number] for Donna Goldman [id number] 07:17:02 Test Item Value Reference Range Interpretation Comments PARTIAL THROMBOPLASTIN TIME 184.8 seconds 22.5-36.0 HH (BEAKER) (test code = 760) [id number] 05:50:01 Test Item Value Reference Range Interpretation Comments PARTIAL THROMBOPLASTIN TIME > seconds 22.5-36.0 HH (BEAKER) (test code = 760) [id number] 05:44:27 Test Item Value Reference Range Interpretation Comments MAGNESIUM (BEAKER) (test code = 2.5 mg/dL 1.6-2.6 627) Hand Slitter ID - [id number] 05:44:27 Test Item Value Reference Range Interpretation Comments PHOSPHORUS (BEAKER) (test code = 5.4 mg/dL 2.3-4.7 H 604) Hand Slitter ID - ADMINBASIC METABOLIC [id number] 05:44:26 Test Item Value Reference Range Interpretation Comments SODIUM (BEAKER) 139 meq/L 136-145 (test code = 381) POTASSIUM 3.5 meq/L 3.5-5.1 (BEAKER) (test code = 379) CHLORIDE (BEAKER) 92 meq/L 98-107 L (test code = 382) CO2 (BEAKER) 33 meq/L 22-29 H (test code = 355) BLOOD UREA 26 mg/dL 7-21 H NITROGEN (BEAKER) (test code = 354) CREATININE 1.85 mg/dL 0.57-1.25 H (BEAKER) (test code = 358) GLUCOSE RANDOM 105 mg/dL 70-105 (BEAKER) (test code = 652) CALCIUM (BEAKER) 10.2 mg/dL 8.4-10.2 (test code = 697) EGFR (BEAKER) 47 Interpretatio n of eGFR (test code = [...] not appl icable for dialysis patien ts Hand Slitter ID - ADMINB-TYPE NATRIURETIC FACTOR (BNP)2022-05-07 05:39:46 Test Item Value Reference Range Interpretation Comments B-TYPE NATRIURETIC PEPTIDE 2280 pg/mL 0-100 H (BEAKER) (test code = 700) Hand Slitter ID - ADMINPROTHROMBIN [id number] 05:34:47 Test Item Value Reference Range Interpretation Comments PROTIME (BEAKER) (test code = 16.9 seconds 11.9-14.2 H 759) INR (BEAKER) (test code = 370) 1.41 <=5.90 RECOMMENDED COUMADIN/WARFARIN INR THERAPY RANGESSTANDARD DOSE: 2.0 - 3.0 Includes: PROPHYLAXIS for venous thrombosis, systemic embolization; TREATMENT for venous thrombosis and/or pulmonary embolus.HIGH RISK: Target INR is 2.5-3.5 for patients with mechanical heart valves.LACTIC ACID, [id number] 05:34:09 Test Item Value Reference Range Interpretation Comments LACTATE BLOOD VENOUS 1.46 mmol/L 0.50-2.20 Specime n slightly (2) (BEAKER) (test hemolyzed code = 2932) Hand Slitter ID - ADMINCBC W/PLT COUNT & AUTO [id number] 05:14:24 Test Item Value Reference Range Interpretation Comments WHITE BLOOD CELL COUNT (BEAKER) 9.2 K/ L 3.5-10.5 (test code = 775) RED BLOOD CELL COUNT (BEAKER) 4.24 M/ L 4.63-6.08 L (test code = 761) HEMOGLOBIN (BEAKER) (test code = 11.7 GM/DL 13.7-17.5 L 410) HEMATOCRIT (BEAKER) (test code = 38.8 % 40.1-51.0 L 411) MEAN CORPUSCULAR VOLUME (BEAKER) 92 fL 79-92 (test code = 753) MEAN CORPUSCULAR HEMOGLOBIN 27.6 pg 25.7-32.2 (BEAKER) (test code = 751) MEAN CORPUSCULAR HEMOGLOBIN CONC 30.2 GM/DL 32.3-36.5 L (BEAKER) (test code = 752) RED CELL DISTRIBUTION WIDTH 14.7 % 11.6-14.4 H (BEAKER) (test code = 412) PLATELET COUNT (BEAKER) (test 383 K/CU MM 150-450 code = 756) MEAN PLATELET VOLUME (BEAKER) 9.1 fL 9.4-12.4 L (test code = 754) NUCLEATED RED BLOOD CELLS 0 /100 WBC 0-0 (BEAKER) (test code = 413) NEUTROPHILS RELATIVE PERCENT 77 % (BEAKER) (test code = 429) LYMPHOCYTES RELATIVE PERCENT 9 % (BEAKER) (test code = 430) MONOCYTES RELATIVE PERCENT 11 % (BEAKER) (test code = 431) EOSINOPHILS RELATIVE PERCENT 1 % (BEAKER) (test code = 432) BASOPHILS RELATIVE PERCENT 1 % (BEAKER) (test code = 437) NEUTROPHILS ABSOLUTE COUNT 7.11 K/ L 1.78-5.38 H (BEAKER) (test code = 670) LYMPHOCYTES ABSOLUTE COUNT 0.80 K/ L 1.32-3.57 L (BEAKER) (test code = 414) MONOCYTES ABSOLUTE COUNT (BEAKER) 1.01 K/ L 0.30-0.82 H (test code = 415) EOSINOPHILS ABSOLUTE COUNT 0.12 K/ L 0.04-0.54 (BEAKER) (test code = 416) BASOPHILS ABSOLUTE COUNT (BEAKER) 0.09 K/ L 0.01-0.08 H (test code = 417) IMMATURE GRANULOCYTES-RELATIVE 0.70 % 0.00-1.00 PERCENT (BEAKER) (test code = 2801) CALCIUM, [id number] 05:01:28 Test Item Value Reference Range Interpretation Comments CALCIUM IONIZED (BEAKER) (test 1.15 mmol/L 1.12-1.27 code = 698) PH, BLOOD (BEAKER) (test code = 7.44 1810) OXYGEN SATURATION, [id number] 05:00:07 Test Item Value Reference Range Interpretation Comments O2 SATURATION (MEASURED) (BEAKER) 60.3 % (test code = 1455) BASIC METABOLIC [id number] 20:46:44 Test Item Value Reference Range Interpretation Comments SODIUM (BEAKER) 139 meq/L 136-145 (test code = 381) POTASSIUM 3.5 meq/L 3.5-5.1 (BEAKER) (test code = 379) CHLORIDE (BEAKER) 88 meq/L 98-107 L (test code = 382) CO2 (BEAKER) 34 meq/L 22-29 H (test code = 355) BLOOD UREA 29 mg/dL 7-21 H NITROGEN (BEAKER) (test code = 354) CREATININE 1.95 mg/dL 0.57-1.25 H (BEAKER) (test code = 358) GLUCOSE RANDOM 107 mg/dL 70-105 H (BEAKER) (test code = 652) CALCIUM (BEAKER) 10.5 mg/dL 8.4-10.2 H (test code = 697) EGFR (BEAKER) 44 Interpretatio n of eGFR (test code = [...] not appl icable for dialysis patien ts Hand Slitter ID - [id number] 20:46:44 Test Item Value Reference Range Interpretation Comments MAGNESIUM (BEAKER) (test code = 2.8 mg/dL 1.6-2.6 H 627) Hand Slitter ID - ADMINPOCT-GLUCOSE [id number] 20:29:31 Test Item Value Reference Range Interpretation Comments POC-GLUCOSE METER 125 mg/dL 70-110 H : TESTED A T [facility] 6720 (BEAKER) (test code = [facility] [email or web address] [facility], 1538) [id number]: Hand Slitter/Techni macrina ID = [id number] for AL I (V), CANDY [id number] 19:22:33 Test Item Value Reference Range Interpretation Comments PARTIAL THROMBOPLASTIN TIME 75.2 seconds 22.5-36.0 H (BEAKER) (test code = 760) POCT-GLUCOSE [id number] 16:15:26 Test Item Value Reference Range Interpretation Comments POC-GLUCOSE METER 128 mg/dL 70-110 H : TESTED A T [facility] 6720 (BEAKER) (test code = [facility] Alfredo [facility], 1538) [id number]: Hand Slitter/Techni macrina ID = [id number] for BE LL, BEAULA BASIC METABOLIC [id number] 12:53:44 Test Item Value Reference Range Interpretation Comments SODIUM (BEAKER) 138 meq/L 136-145 (test code = 381) POTASSIUM 4.5 meq/L 3.5-5.1 Specimen modera tely (BEAKER) (test hemolyzed code = 379) CHLORIDE (BEAKER) 87 meq/L 98-107 L (test code = 382) CO2 (BEAKER) 33 meq/L 22-29 H (test code = 355) BLOOD UREA 28 mg/dL 7-21 H NITROGEN (BEAKER) (test code = 354) CREATININE 2.27 mg/dL 0.57-1.25 H Specimen modera tely (BEAKER) (test hemolyzed code = 358) GLUCOSE RANDOM 166 mg/dL 70-105 H (BEAKER) (test code = 652) CALCIUM (BEAKER) 10.7 mg/dL 8.4-10.2 H (test code = 697) EGFR (BEAKER) 36 Interpretatio n of eGFR (test code = [...] not appl icable for dialysis patien ts Hand Slitter ID - [id number] 12:53:43 Test Item Value Reference Range Interpretation Comments MAGNESIUM (BEAKER) 2.8 mg/dL 1.6-2.6 H Specimen moderately (test code = 627) hemolyzed Hand Slitter ID - ADMINVANCOMYCIN LEVEL, [id number] 11:32:43 Test Item Value Reference Range Interpretation Comments VANCOMYCIN TROUGH (BEAKER) (test 24.6 ug/mL 10.0-20.0 H code = 522) Hand Slitter ID - ADMINPOCT-GLUCOSE [id number] 11:10:22 Test Item Value Reference Range Interpretation Comments POC-GLUCOSE METER 185 mg/dL 70-110 H : TESTED A T [facility] 6720 (BEAKER) (test code = FILEMON Fuentes [facility], 1538) [address]: Hand Slitter/Techni macrina ID = [id number] for BE LL BEAULA [id number] 10:19:41 Test Item Value Reference Range Interpretation Comments PARTIAL THROMBOPLASTIN TIME 67.7 seconds 22.5-36.0 H (BEAKER) (test code = 760) POCT-GLUCOSE [id number] 07:51:58 Test Item Value Reference Range Interpretation Comments POC-GLUCOSE METER 122 mg/dL 70-110 H : [facility] (MIA[facility] (test code = FILEMON Fuentes [facility], 1538) [id number]: Hand Slitter/Techni macrina ID = [id number] for BE LL BEAUGRACY RAD, CHEST, 1 VIEW, NON [id number] 07:45:00Reason for exam:->PNAShould this be performed at the bedside?->Yes [facility] 1980 Sex: MFINAL REPORT CLINICAL HISTORY: PNA TECHNIQUE: 1 view of the chest. COMPARISON: 05/05/2022 IMPRESSION: Right central line unchanged. Patchy right lower lung airspace opacity unchanged. No significant pleural fluid. The cardiomediastinal silhouette is magnified by technique. Signed: Raheel Tysoneport Verified Date/Time: 05/06/2022 07:45:12 CALCIUM, [id number] 05:18:24 Test Item Value Reference Range Interpretation Comments CALCIUM IONIZED (BEAKER) (test 1.08 mmol/L 1.12-1.27 L code = 698) PH, BLOOD (BEAKER) (test code = 7.46 1810) OXYGEN SATURATION, [id number] 05:15:59 Test Item Value Reference Range Interpretation Comments O2 SATURATION (MEASURED) (BEAKER) 66.4 % (test code = 1455) CBC W/PLT COUNT & AUTO [id number] 02:21:57 Test Item Value Reference Range Interpretation Comments WHITE BLOOD CELL COUNT (BEAKER) 12.0 K/ L 3.5-10.5 H (test code = 775) RED BLOOD CELL COUNT (BEAKER) 3.94 M/ L 4.63-6.08 L (test code = 761) HEMOGLOBIN (BEAKER) (test code = 10.9 GM/DL 13.7-17.5 L 410) HEMATOCRIT (BEAKER) (test code = 35.5 % 40.1-51.0 L 411) MEAN CORPUSCULAR VOLUME (BEAKER) 90 fL 79-92 (test code = 753) MEAN CORPUSCULAR HEMOGLOBIN 27.7 pg 25.7-32.2 (BEAKER) (test code = 751) MEAN CORPUSCULAR HEMOGLOBIN CONC 30.7 GM/DL 32.3-36.5 L (BEAKER) (test code = 752) RED CELL DISTRIBUTION WIDTH 14.8 % 11.6-14.4 H (BEAKER) (test code = 412) PLATELET COUNT (BEAKER) (test 363 K/CU MM 150-450 code = 756) MEAN PLATELET VOLUME (BEAKER) 9.3 fL 9.4-12.4 L (test code = 754) NUCLEATED RED BLOOD CELLS 0 /100 WBC 0-0 (BEAKER) (test code = 413) NEUTROPHILS RELATIVE PERCENT 82 % (BEAKER) (test code = 429) LYMPHOCYTES RELATIVE PERCENT 7 % (BEAKER) (test code = 430) MONOCYTES RELATIVE PERCENT 10 % (BEAKER) (test code = 431) EOSINOPHILS RELATIVE PERCENT 0 % (BEAKER) (test code = 432) BASOPHILS RELATIVE PERCENT 0 % (BEAKER) (test code = 437) NEUTROPHILS ABSOLUTE COUNT 9.79 K/ L 1.78-5.38 H (BEAKER) (test code = 670) LYMPHOCYTES ABSOLUTE COUNT 0.81 K/ L 1.32-3.57 L (BEAKER) (test code = 414) MONOCYTES ABSOLUTE COUNT (BEAKER) 1.23 K/ L 0.30-0.82 H (test code = 415) EOSINOPHILS ABSOLUTE COUNT 0.02 K/ L 0.04-0.54 L (BEAKER) (test code = 416) BASOPHILS ABSOLUTE COUNT (BEAKER) 0.05 K/ L 0.01-0.08 (test code = 417) IMMATURE GRANULOCYTES-RELATIVE 0.80 % 0.00-1.00 PERCENT (BEAKER) (test code = 2801) [id number] 02:12:52 Test Item Value Reference Range Interpretation Comments MAGNESIUM (BEAKER) (test code = 2.5 mg/dL 1.6-2.6 627) Hand Slitter ID - CECE [id number] 02:12:52 Test Item Value Reference Range Interpretation Comments PHOSPHORUS (BEAKER) (test code = 3.7 mg/dL 2.3-4.7 604) Hand Slitter ID - CEEC GBASIC METABOLIC [id number] 02:12:51 Test Item Value Reference Range Interpretation Comments SODIUM (BEAKER) 139 meq/L 136-145 (test code = 381) POTASSIUM 4.3 meq/L 3.5-5.1 (BEAKER) (test code = 379) CHLORIDE (BEAKER) 90 meq/L 98-107 L (test code = 382) CO2 (BEAKER) 35 meq/L 22-29 H (test code = 355) BLOOD UREA 29 mg/dL 7-21 H NITROGEN (BEAKER) (test code = 354) CREATININE 1.99 mg/dL 0.57-1.25 H (BEAKER) (test code = 358) GLUCOSE RANDOM 122 mg/dL 70-105 H (BEAKER) (test code = 652) CALCIUM (BEAKER) 10.1 mg/dL 8.4-10.2 (test code = 697) EGFR (BEAKER) 43 Interpretatio n of eGFR (test code = [...] not appl icable for dialysis patien ts Hand Slitter ID - CECE GLACTIC ACID, [id number] 02:07:31 Test Item Value Reference Range Interpretation Comments LACTATE BLOOD VENOUS 1.48 mmol/L 0.50-2.20 Specime n slightly (2) (BEAKER) (test hemolyzed code = 2872) Hand Slitter ID - [id number] 02:04:11 Test Item Value Reference Range Interpretation Comments PARTIAL THROMBOPLASTIN TIME 60.7 seconds 22.5-36.0 H (BEAKER) (test code = 760) PROTHROMBIN [id number] 02:02:51 Test Item Value Reference Range Interpretation Comments PROTIME (BEAKER) (test code = 17.3 seconds 11.9-14.2 H 759) INR (BEAKER) (test code = 370) 1.51 <=5.90 RECOMMENDED COUMADIN/WARFARIN INR THERAPY RANGESSTANDARD DOSE: 2.0 - 3.0 Includes: PROPHYLAXIS for venous thrombosis, systemic embolization; TREATMENT for venous thrombosis and/or pulmonary embolus.HIGH RISK: Target INR is 2.5-3.5 for patients with mechanical heart valves.OXYGEN SATURATION, [id number] 01:47:13 Test Item Value Reference Range Interpretation Comments O2 SATURATION (MEASURED) (BEAKER) 58.3 % (test code = 1455) RAD, CHEST, 1 VIEW, NON [id number] 23:25:00Reason for exam:->eval pulmonaryShould this be performed at the bedside?->Yes [facility] GARZAAVERY GregorioBRIBOBBY BUTCHER : 1980 Sex: MFINAL REPORT TECHNIQUE: Frontal view of the chest. INDICATION: eval pulmonary. COMPARISON: 05/05/2022 at 5:02 AM. FINDINGS: LINES/TUBES: Right IJ central venous catheter tip projected over the distal SVC. HEART AND MEDIASTINUM: Cardiomediastinal contour is stable. Cardiomegaly. LUNGS: Slight improvement in right basilar opacity. No pulmonary edema. PLEURA: No pneumothorax. No significant pleural effusion. SOFT TISSUES AND BONES: Unremarkable. IMPRESSION:Cardiomegaly. Slight improvement in right basilar opacity. No pulmonary edema. Signed: Rd Packer MDReport Verified Date/Time: 05/05/2022 23:25:30 POCT-GLUCOSE [id number] 21:08:09 Test Item Value Reference Range Interpretation Comments POC-GLUCOSE METER 141 mg/dL 70-110 H : [facility] (test code = [place], 1538) [address]: Hand Slitter/Techni macrina ID = [id number] for AL I (V), CANDY [id number] 18:34:27 Test Item Value Reference Range Interpretation Comments PARTIAL THROMBOPLASTIN TIME 56.0 seconds 22.5-36.0 H (BEAKER) (test code = 760) BASIC METABOLIC [id number] 17:20:54 Test Item Value Reference Range Interpretation Comments SODIUM (BEAKER) 140 meq/L 136-145 (test code = 381) POTASSIUM 4.2 meq/L 3.5-5.1 (BEAKER) (test code = 379) CHLORIDE (BEAKER) 90 meq/L 98-107 L (test code = 382) CO2 (BEAKER) 36 meq/L 22-29 H (test code = 355) BLOOD UREA 28 mg/dL 7-21 H NITROGEN (BEAKER) (test code = 354) CREATININE 1.93 mg/dL 0.57-1.25 H (BEAKER) (test code = 358) GLUCOSE RANDOM 120 mg/dL 70-105 H (BEAKER) (test code = 652) CALCIUM (BEAKER) 10.1 mg/dL 8.4-10.2 (test code = 697) EGFR (BEAKER) 44 Interpretatio n of eGFR (test code = [...] not appl icable for dialysis patien ts Hand Slitter ID - CECE GOperator ID - CECE [id number] 17:08:34 Test Item Value Reference Range Interpretation Comments MAGNESIUM (BEVICKIE) (test code = 2.5 mg/dL 1.6-2.6 627) Hand Slitter ID - CECE GPOCT-GLUCOSE [id number] 10:59:14 Test Item Value Reference Range Interpretation Comments POC-GLUCOSE METER 142 mg/dL 70-110 H : TESTED A T [facility] 6720 ([employer]FLOORS) (test code = [facility] [email or web address] [facility], 153) [address]: Hand Slitter/Techni macrina ID = [id number] for ANDERSON OSWALD VANCOMYCIN LEVEL, [id number] 10:16:32 Test Item Value Reference Range Interpretation Comments VANCOMYCIN TROUGH (BEVICKIE) (test 19.5 ug/mL 10.0-20.0 code = 522) Hand Slitter ID - [id number] 10:05:29 Test Item Value Reference Range Interpretation Comments PARTIAL THROMBOPLASTIN TIME 56.9 seconds 22.5-36.0 H (BEAKER) (test code = 760) POCT-GLUCOSE [id number] 07:36:11 Test Item Value Reference Range Interpretation Comments POC-GLUCOSE METER 106 mg/dL 70-110 : TESTED A T [facility] 6720 (simpleFLOORS) (test code = [facility], 1538) [address]: Hand Slitter/Techni macrina ID = [id number] for BE ANDERSON GODWIN RAD, CHEST, 1 VIEW, NON [id number] 06:22:00Reason for exam:->PNAShould this be performed at the bedside?->Yes [facility] : 1980 Sex: MFINAL REPORT Chest one view: HISTORY: Pneumonia Compared to 05/04/2022. There has been no significant interval change. Patchy consolidation in the right lower lobe is again noted. The left lung is clear. Cardiomegaly is unchanged, with no vascular congestion or definite effusion is identified. A right jugular central venous catheter remains in place. Signed: Yvrose [place] MDReport V erified Date/Time: 05/05/2022 06:22:34 LACTIC ACID, [id number] 03:50:24 Test Item Value Reference Range Interpretation Comments LACTATE BLOOD VENOUS 1.44 mmol/L 0.50-2.20 Specime n slightly (2) (BEAKER) (test hemolyzed code = 2872) Hand Slitter ID - CECE GOXYGEN SATURATION, [id number] 03:42:55 Test Item Value Reference Range Interpretation Comments O2 SATURATION (MEASURED) (BEAKER) 76.1 % (test code = 1455) LACTIC ACID, [id number] 02:53:10 Test Item Value Reference Range Interpretation Comments LACTATE BLOOD VENOUS (2) (BEAKER) 2.35 mmol/L 0.50-2.20 H (test code = 2872) Hand Slitter ID - CECE GBASIC METABOLIC [id number] 02:34:06 Test Item Value Reference Range Interpretation Comments SODIUM (BEAKER) 132 meq/L 136-145 L (test code = 381) POTASSIUM 4.8 meq/L 3.5-5.1 (BEAKER) (test code = 379) CHLORIDE (BEAKER) 82 meq/L 98-107 L (test code = 382) CO2 (BEAKER) 35 meq/L 22-29 H (test code = 355) BLOOD UREA 29 mg/dL 7-21 H NITROGEN (BEAKER) (test code = 354) CREATININE 2.31 mg/dL 0.57-1.25 H (BEAKER) (test code = 358) GLUCOSE RANDOM 128 mg/dL 70-105 H (BEAKER) (test code = 652) CALCIUM (BEAKER) 9.8 mg/dL 8.4-10.2 (test code = 697) EGFR (BEAKER) 36 Interpretatio n of eGFR (test code = [...] not appl icable for dialysis patien ts Hand Slitter ID - CECE [id number] 02:34:06 Test Item Value Reference Range Interpretation Comments MAGNESIUM (BEAKER) (test code = 2.5 mg/dL 1.6-2.6 627) Hand Slitter ID - CECE [id number] 02:34:06 Test Item Value Reference Range Interpretation Comments PHOSPHORUS (BEAKER) (test code = 3.9 mg/dL 2.3-4.7 604) Hand Slitter ID - CECE [id number] 02:18:39 Test Item Value Reference Range Interpretation Comments PARTIAL THROMBOPLASTIN TIME 87.2 seconds 22.5-36.0 H (BEAKER) (test code = 760) PROTHROMBIN [id number] 02:16:59 Test Item Value Reference Range Interpretation Comments PROTIME (BEAKER) (test code = 18.3 seconds 11.9-14.2 H 759) INR (BEAKER) (test code = 370) 1.62 <=5.90 RECOMMENDED COUMADIN/WARFARIN INR THERAPY RANGESSTANDARD DOSE: 2.0 - 3.0 Includes: PROPHYLAXIS for venous thrombosis, systemic embolization; TREATMENT for venous thrombosis and/or pulmonary embolus.HIGH RISK: Target INR is 2.5-3.5 for patients with mechanical heart valves.CBC W/PLT COUNT & AUTO [id number] 02:11:59 Test Item Value Reference Range Interpretation Comments WHITE BLOOD CELL COUNT (BEAKER) 11.8 K/ L 3.5-10.5 H (test code = 775) RED BLOOD CELL COUNT (BEAKER) 3.99 M/ L 4.63-6.08 L (test code = 761) HEMOGLOBIN (BEAKER) (test code = 11.2 GM/DL 13.7-17.5 L 410) HEMATOCRIT (BEAKER) (test code = 35.6 % 40.1-51.0 L 411) MEAN CORPUSCULAR VOLUME (BEAKER) 89 fL 79-92 (test code = 753) MEAN CORPUSCULAR HEMOGLOBIN 28.1 pg 25.7-32.2 (BEAKER) (test code = 751) MEAN CORPUSCULAR HEMOGLOBIN CONC 31.5 GM/DL 32.3-36.5 L (BEAKER) (test code = 752) RED CELL DISTRIBUTION WIDTH 14.6 % 11.6-14.4 H (BEAKER) (test code = 412) PLATELET COUNT (BEAKER) (test 339 K/CU MM 150-450 code = 756) MEAN PLATELET VOLUME (BEAKER) 9.5 fL 9.4-12.4 (test code = 754) NUCLEATED RED BLOOD CELLS 0 /100 WBC 0-0 (BEAKER) (test code = 413) NEUTROPHILS RELATIVE PERCENT 75 % (BEAKER) (test code = 429) LYMPHOCYTES RELATIVE PERCENT 12 % (BEAKER) (test code = 430) MONOCYTES RELATIVE PERCENT 11 % (BEAKER) (test code = 431) EOSINOPHILS RELATIVE PERCENT 1 % (BEAKER) (test code = 432) BASOPHILS RELATIVE PERCENT 1 % (BEAKER) (test code = 437) NEUTROPHILS ABSOLUTE COUNT 8.90 K/ L 1.78-5.38 H (BEAKER) (test code = 670) LYMPHOCYTES ABSOLUTE COUNT 1.41 K/ L 1.32-3.57 (BEAKER) (test code = 414) MONOCYTES ABSOLUTE COUNT (BEAKER) 1.32 K/ L 0.30-0.82 H (test code = 415) EOSINOPHILS ABSOLUTE COUNT 0.06 K/ L 0.04-0.54 (BEAKER) (test code = 416) BASOPHILS ABSOLUTE COUNT (BEAKER) 0.06 K/ L 0.01-0.08 (test code = 417) IMMATURE GRANULOCYTES-RELATIVE 0.70 % 0.00-1.00 PERCENT (BEAKER) (test code = 2801) CALCIUM, [id number] 02:11:30 Test Item Value Reference Range Interpretation Comments CALCIUM IONIZED (BEAKER) (test 1.07 mmol/L 1.12-1.27 L code = 698) PH, BLOOD (BEAKER) (test code = 7.45 1810) OXYGEN SATURATION, [id number] 02:09:24 Test Item Value Reference Range Interpretation Comments O2 SATURATION (MEASURED) (BEAKER) 65.2 % (test code = 1455) POCT-GLUCOSE [id number] 22:26:50 Test Item Value Reference Range Interpretation Comments POC-GLUCOSE METER 161 mg/dL 70-110 H : TESTED A T [facility] [address] (BEAKER) (test code = [place], 1538) [address]: Hand Slitter/Techni macrina ID = [id number] for ZOEY SULTANA GERALD [id number] 20:11:08 Test Item Value Reference Range Interpretation Comments PARTIAL THROMBOPLASTIN TIME 71.6 seconds 22.5-36.0 H (BEAKER) (test code = 760) BASIC METABOLIC [id number] 19:36:09 Test Item Value Reference Range Interpretation Comments SODIUM (BEAKER) 125 meq/L 136-145 L (test code = 381) POTASSIUM 3.3 meq/L 3.5-5.1 L (BEAKER) (test code = 379) CHLORIDE (BEAKER) 76 meq/L 98-107 L (test code = 382) CO2 (BEAKER) 35 meq/L 22-29 H (test code = 355) BLOOD UREA 28 mg/dL 7-21 H NITROGEN (BEAKER) (test code = 354) CREATININE 1.98 mg/dL 0.57-1.25 H (BEAKER) (test code = 358) GLUCOSE RANDOM 132 mg/dL 70-105 H (BEAKER) (test code = 652) CALCIUM (BEAKER) 9.3 mg/dL 8.4-10.2 (test code = 697) EGFR (BEAKER) 43 Interpretatio n of eGFR (test code = [...] not appl icable for dialysis patien ts Hand Slitter ID - [id number] 19:36:09 Test Item Value Reference Range Interpretation Comments MAGNESIUM (BEAKER) (test code = 2.3 mg/dL 1.6-2.6 627) Hand Slitter ID - ADMINPOCT-GLUCOSE [id number] 16:18:37 Test Item Value Reference Range Interpretation Comments POC-GLUCOSE METER 149 mg/dL 70-110 H : TESTED A T [facility] [address] (BEAKER) (test code = [address] [facility], 1538) [address]: Hand Slitter/Techni macrina ID = [id number] for Kaye Lee [id number] 12:58:25 Test Item Value Reference Range Interpretation Comments MAGNESIUM (BEAKER) (test code = 2.5 mg/dL 1.6-2.6 627) Hand Slitter ID - ADMINBASIC METABOLIC [id number] 12:58:24 Test Item Value Reference Range Interpretation Comments SODIUM (BEAKER) 129 meq/L 136-145 L (test code = 381) POTASSIUM 4.2 meq/L 3.5-5.1 (BEAKER) (test code = 379) CHLORIDE (BEAKER) 84 meq/L 98-107 L (test code = 382) CO2 (BEAKER) 33 meq/L 22-29 H (test code = 355) BLOOD UREA 28 mg/dL 7-21 H NITROGEN (BEAKER) (test code = 354) CREATININE 2.15 mg/dL 0.57-1.25 H (BEAKER) (test code = 358) GLUCOSE RANDOM 171 mg/dL 70-105 H (BEAKER) (test code = 652) CALCIUM (BEAKER) 9.7 mg/dL 8.4-10.2 (test code = 697) EGFR (BEAKER) 39 Interpretatio n of eGFR (test code = [...] not appl icable for dialysis patien ts Hand Slitter ID - [id number] 12:57:41 Test Item Value Reference Range Interpretation Comments PARTIAL THROMBOPLASTIN TIME 63.5 seconds 22.5-36.0 H (BEAKER) (test code = 760) POCT-GLUCOSE [id number] 11:24:54 Test Item Value Reference Range Interpretation Comments POC-GLUCOSE METER 188 mg/dL 70-110 H : TESTED A T [facility] [address] (BEAKER) ([facility] = [facility] 1538[facility] [address]: Hand Slitter/Techni macrina ID = [id number] for Nena Kaye tinajero VANCOMYCIN LEVEL, [id number] 09:28:52 Test Item Value Reference Range Interpretation Comments VANCOMYCIN RANDOM (BEAKER) (test 14.7 ug/mL code = 523) Reference Range: No NormalsOperator ID - MMRAD, CHEST, 1 VIEW, NON DEPT 2022-05-04 07:59:00Reason for exam:->PNAShould this be performed at the bedside?->[facility] RBI [facility] : 1980 Sex: MFINAL REPORT EXAMINATION: RAD, CHEST, 1 VIEW, NON DEPT. INDICATION: 41-year-old malewith pneumonia. COMPARISON: Chest radiograph dated 05/02/2022. CT chest dated 05/02/2022. FINDINGS/ IMPRESSION:A right central line is noted in stable position. Mild cardiomegaly. Mild right hazy basilaropacity, similar to prior examination. No large pleural effusion or pneumothorax. Other findings remain unchanged. Signed: Sera Alvarezeport Verified Date/Time: 05/04/2022 07:59:05 -GLUCOSE [id number] 07:41:13 Test Item Value Reference Range Interpretation Comments POC-GLUCOSE METER 122 mg/dL 70-110 H : TESTED A T [facility] 6720 (BEAKER) (test code = [address] [facility], 1538) [address]: Hand Slitter/Techni macrina ID = [id number] for Kaye Lee SPUTUM CULTURE + GRAM [id number] 06:18:47 Test Item Value Reference Range Interpretation Comments CULTURE (BEAKER) Oropharyngeal (test code = 1095) contamination, specimen rejected. Recollect requested. GRAM STAIN RESULT <1+ WBCs (BEAKER) (test code = 1123) GRAM STAIN RESULT 10-15 epithelial cells (BEAKER) (test code = 89259) GRAM STAIN RESULT 2+ gram positive cocci in (BEAKER) (test code pairs = 10291) GRAM STAIN RESULT 2+ gram variable rods (BEAKER) (test code = 242772) BASIC METABOLIC [id number] 04:59:33 Test Item Value Reference Range Interpretation Comments SODIUM (BEAKER) 135 meq/L 136-145 L (test code = 381) POTASSIUM 3.8 meq/L 3.5-5.1 (BEAKER) (test code = 379) CHLORIDE (BEAKER) 84 meq/L 98-107 L (test code = 382) CO2 (BEAKER) 35 meq/L 22-29 H (test code = 355) BLOOD UREA 22 mg/dL 7-21 H NITROGEN (BEAKER) (test code = 354) CREATININE 2.06 mg/dL 0.57-1.25 H (BEAKER) (test code = 358) GLUCOSE RANDOM 118 mg/dL 70-105 H (BEAKER) (test code = 652) CALCIUM (BEAKER) 9.8 mg/dL 8.4-10.2 (test code = 697) EGFR (BEAKER) 41 Interpretatio n of eGFR (test code = [...] not appl icable for dialysis patien ts Hand Slitter ID - [id number] 04:55:41 Test Item Value Reference Range Interpretation Comments PHOSPHORUS (BEAKER) (test code = 4.9 mg/dL 2.3-4.7 H 604) Hand Slitter ID - [id number] 04:55:40 Test Item Value Reference Range Interpretation Comments MAGNESIUM (BEAKER) (test code = 2.5 mg/dL 1.6-2.6 627) Hand Slitter ID - MMLACTIC ACID, [id number] 04:42:34 Test Item Value Reference Range Interpretation Comments LACTATE BLOOD VENOUS 1.50 mmol/L 0.50-2.20 Specime n slightly (2) (BEAKER) (test hemolyzed code = 2872) Hand Slitter ID - [id number] 04:33:17 Test Item Value Reference Range Interpretation Comments PARTIAL THROMBOPLASTIN TIME 99.6 seconds 22.5-36.0 H (BEAKER) (test code = 760) CBC W/PLT COUNT & AUTO [id number] 04:32:14 Test Item Value Reference Range Interpretation Comments WHITE BLOOD CELL COUNT (BEAKER) 11.4 K/ L 3.5-10.5 H (test code = 775) RED BLOOD CELL COUNT (BEAKER) 3.99 M/ L 4.63-6.08 L (test code = 761) HEMOGLOBIN (BEAKER) (test code = 11.3 GM/DL 13.7-17.5 L 410) HEMATOCRIT (BEAKER) (test code = 35.8 % 40.1-51.0 L 411) MEAN CORPUSCULAR VOLUME (BEAKER) 90 fL 79-92 (test code = 753) MEAN CORPUSCULAR HEMOGLOBIN 28.3 pg 25.7-32.2 (BEAKER) (test code = 751) MEAN CORPUSCULAR HEMOGLOBIN CONC 31.6 GM/DL 32.3-36.5 L (BEAKER) (test code = 752) RED CELL DISTRIBUTION WIDTH 14.8 % 11.6-14.4 H (BEAKER) (test code = 412) PLATELET COUNT (BEAKER) (test 310 K/CU MM 150-450 code = 756) MEAN PLATELET VOLUME (BEAKER) 10.0 fL 9.4-12.4 (test code = 754) NUCLEATED RED BLOOD CELLS 0 /100 WBC 0-0 (BEAKER) (test code = 413) NEUTROPHILS RELATIVE PERCENT 76 % (BEAKER) (test code = 429) LYMPHOCYTES RELATIVE PERCENT 12 % (BEAKER) (test code = 430) MONOCYTES RELATIVE PERCENT 12 % (BEAKER) (test code = 431) EOSINOPHILS RELATIVE PERCENT 0 % (BEAKER) (test code = 432) BASOPHILS RELATIVE PERCENT 1 % (BEAKER) (test code = 437) NEUTROPHILS ABSOLUTE COUNT 8.63 K/ L 1.78-5.38 H (BEAKER) (test code = 670) LYMPHOCYTES ABSOLUTE COUNT 1.31 K/ L 1.32-3.57 L (BEAKER) (test code = 414) MONOCYTES ABSOLUTE COUNT (BEAKER) 1.35 K/ L 0.30-0.82 H (test code = 415) EOSINOPHILS ABSOLUTE COUNT 0.01 K/ L 0.04-0.54 L (BEAKER) (test code = 416) BASOPHILS ABSOLUTE COUNT (BEAKER) 0.06 K/ L 0.01-0.08 (test code = 417) IMMATURE GRANULOCYTES-RELATIVE 0.40 % 0.00-1.00 PERCENT (BEAKER) (test code = 2801) PROTHROMBIN [id number] 04:31:33 Test Item Value Reference Range Interpretation Comments PROTIME (BEAKER) (test code = 18.9 seconds 11.9-14.2 H 759) INR (BEAKER) (test code = 370) 1.69 <=5.90 RECOMMENDED COUMADIN/WARFARIN INR THERAPY RANGESSTANDARD DOSE: 2.0 - 3.0 Includes: PROPHYLAXIS for venous thrombosis, systemic embolization; TREATMENT for venous thrombosis and/or pulmonary embolus.HIGH RISK: Target INR is 2.5-3.5 for patients with mechanical heart valves.OXYGEN SATURATION, [id number] 04:19:49 Test Item Value Reference Range Interpretation Comments O2 SATURATION (MEASURED) (BEAKER) 75.0 % (test code = 1455) [id number] 21:52:29 Test Item Value Reference Range Interpretation Comments MAGNESIUM (BEAKER) (test code = 3.0 mg/dL 1.6-2.6 H 627) Hand Slitter ID - [id number] 21:52:29 Test Item Value Reference Range Interpretation Comments PHOSPHORUS (BEAKER) (test code = 5.0 mg/dL 2.3-4.7 H 604) Hand Slitter ID - ADMINBASIC METABOLIC [id number] 21:52:29 Test Item Value Reference Range Interpretation Comments SODIUM (BEAKER) 127 meq/L 136-145 L (test code = 381) POTASSIUM 4.9 meq/L 3.5-5.1 (BEAKER) (test code = 379) CHLORIDE (BEAKER) 83 meq/L 98-107 L (test code = 382) CO2 (BEAKER) 31 meq/L 22-29 H (test code = 355) BLOOD UREA 29 mg/dL 7-21 H NITROGEN (BEAKER) (test code = 354) CREATININE 2.21 mg/dL 0.57-1.25 H (BEAKER) (test code = 358) GLUCOSE RANDOM 154 mg/dL 70-105 H (BEAKER) (test code = 652) CALCIUM (BEAKER) 9.9 mg/dL 8.4-10.2 (test code = 697) EGFR (BEAKER) 38 Interpretatio n of eGFR (test code = [...] not appl icable for dialysis patien ts Hand Slitter ID - ADMINSpecimen slightly ictericVANCOMYCIN LEVEL, [id number] 21:31:10 Test Item Value Reference Range Interpretation Comments VANCOMYCIN TROUGH (BEAKER) (test 28.8 ug/mL 10.0-20.0 H code = 522) Hand Slitter ID - [id number] 17:27:30 Test Item Value Reference Range Interpretation Comments MAGNESIUM (BEAKER) (test code = 2.2 mg/dL 1.6-2.6 627) Hand Slitter ID - [id number] 17:27:30 Test Item Value Reference Range Interpretation Comments PHOSPHORUS (BEAKER) (test code = 4.5 mg/dL 2.3-4.7 604) Hand Slitter ID - ADMINBASIC METABOLIC [id number] 17:27:29 Test Item Value Reference Range Interpretation Comments SODIUM (BEAKER) 133 meq/L 136-145 L (test code = 381) POTASSIUM 3.8 meq/L 3.5-5.1 (BEAKER) (test code = 379) CHLORIDE (BEAKER) 89 meq/L 98-107 L (test code = 382) CO2 (BEAKER) 31 meq/L 22-29 H (test code = 355) BLOOD UREA 29 mg/dL 7-21 H NITROGEN (BEAKER) (test code = 354) CREATININE 2.05 mg/dL 0.57-1.25 H (MIA) (test code = 358) GLUCOSE RANDOM 133 mg/dL 70-105 H (MIA) (test code = 652) CALCIUM (MIA) 9.4 mg/dL 8.4-10.2 (test code = 697) [facility] 41 Interpretatio n of eGFR (test code = [...] not appl icable for dialysis patien ts Hand Slitter ID - ADMINPOCT-GLUCOSE [id number] 16:42:20 Test Item Value Reference Range Interpretation Comments POC-GLUCOSE METER 136 mg/dL 70-110 H : TESTED A T [facility] 6720 (simpleFLOORS) (test code = [facility], 1538) [id number]: Hand Slitter/Techni macrina ID = [id number] for Nena tinajero, Kaye POCT-GLUCOSE [id number] 11:14:04 Test Item Value Reference Range Interpretation Comments POC-GLUCOSE METER 173 mg/dL 70-110 H : TESTED A T [facility] 6720 (simpleFLOORS) (test code = [facility], 1538) [id number]: Hand Slitter/Techni macrina ID = [id number] for Nena gormanz, Kaye HEMOGLOBIN [id number] 10:36:34 Test Item Value Reference Range Interpretation Comments HEMOGLOBIN A1C 6.0 % See_Comment H [Automated m essage] ELECTROPHORESIS ([facility]) The system which (test code = 3811) generated this result transmitted ref erence range: <=5.6%. The reference range was not used to int erpret this result as normal/abnormal . "The A1c is measured using a NGSP-certified method. HbA1c value equal to or greater than 6.5% as thediagnosis cutoff for diabetes. An HbA1c value of 5.7- 6.4% indicates increased risk for diabetes (prediabetes)."Hand Slitter ID - ADMAPTT 2022-05-03 09:33:25 Test Item Value Reference Range Interpretation Comments PARTIAL THROMBOPLASTIN TIME 83.7 seconds 22.5-36.0 H (BEAKER) (test code = 760) BASIC METABOLIC [id number] 09:26:04 Test Item Value Reference Range Interpretation Comments SODIUM (BEAKER) 136 meq/L 136-145 (test code = 381) POTASSIUM 4.2 meq/L 3.5-5.1 (BEAKER) (test code = 379) CHLORIDE (BEAKER) 88 meq/L 98-107 L (test code = 382) CO2 (BEAKER) 36 meq/L 22-29 H (test code = 355) BLOOD UREA 25 mg/dL 7-21 H NITROGEN (BEAKER) (test code = 354) CREATININE 1.87 mg/dL 0.57-1.25 H (BEAKER) (test code = 358) GLUCOSE RANDOM 117 mg/dL 70-105 H (BEAKER) (test code = 652) CALCIUM (BEAKER) 9.3 mg/dL 8.4-10.2 (test code = 697) EGFR (BEAKER) 46 Interpretatio n of eGFR (test code = [...] not appl icable for dialysis patien ts Hand Slitter ID - CECE [id number] 09:26:04 Test Item Value Reference Range Interpretation Comments MAGNESIUM (BEAKER) (test code = 2.1 mg/dL 1.6-2.6 627) Hand Slitter ID - CECE GPOCT-GLUCOSE [id number] 07:43:34 Test Item Value Reference Range Interpretation Comments POC-GLUCOSE METER 123 mg/dL 70-110 H : TESTED A T [facility] 6720 (BEAKER) (test code = FILEMON Fuentes [place], 1538) [address]: Hand Slitter/Techni macrina ID = [id number] for Kaye Lee [id number] 07:38:39 Test Item Value Reference Range Interpretation Comments PHOSPHORUS (BEAKER) (test code = 4.6 mg/dL 2.3-4.7 604) Hand Slitter ID - CECE GCOMPREHENSIVE METABOLIC [id number] 05:02:42 Test Item Value Reference Range Interpretation Comments TOTAL PROTEIN 6.7 gm/dL 6.0-8.3 (BEAKER) (test code = 770) ALBUMIN (BEAKER) 3.6 g/dL 3.5-5.0 (test code = 1145) ALKALINE 108 U/L 40-150 PHOSPHATASE (BEAKER) (test code = 346) BILIRUBIN TOTAL 1.7 mg/dL 0.2-1.2 H (BEAKER) (test code = 377) SODIUM (BEAKER) 137 meq/L 136-145 (test code = 381) POTASSIUM (BEAKER) 3.3 meq/L 3.5-5.1 L (test code = 379) CHLORIDE (BEAKER) 88 meq/L 98-107 L (test code = 382) CO2 (BEAKER) (test 34 meq/L 22-29 H code = 355) BLOOD UREA 29 mg/dL 7-21 H NITROGEN (BEAKER) (test code = 354) CREATININE 1.99 mg/dL 0.57-1.25 H (BEAKER) (test code = 358) GLUCOSE RANDOM 119 mg/dL 70-105 H (BEAKER) (test code = 652) CALCIUM (BEAKER) 9.3 mg/dL 8.4-10.2 (test code = 697) AST (SGOT) 64 U/L 5-34 H (BEAKER) (test code = 353) ALT (SGPT) 131 U/L 6-55 H (BEAKER) (test code = 347) EGFR (BEAKER) 43 Interpretatio n of eGFR (test code = [...] not appl icable for dialysis patien ts Hand Slitter ID - ADMINSpecimen slightly ictericLACTIC ACID, [id number] 04:29:11 Test Item Value Reference Range Interpretation Comments LACTATE BLOOD VENOUS 1.24 mmol/L 0.50-2.20 Specime n slightly (2) (BEAKER) (test hemolyzed code = 2872) Hand Slitter ID - CECE GPROTHROMBIN [id number] 04:22:51 Test Item Value Reference Range Interpretation Comments PROTIME (BEAKER) (test code = 20.5 seconds 11.9-14.2 H 759) INR (BEAKER) (test code = 370) 1.88 <=5.90 RECOMMENDED COUMADIN/WARFARIN INR THERAPY RANGESSTANDARD DOSE: 2.0 - 3.0 Includes: PROPHYLAXIS for venous thrombosis, systemic embolization; TREATMENT for venous thrombosis and/or pulmonary embolus.HIGH RISK: Target INR is 2.5-3.5 for patients with mechanical heart valves.CBC (HEMOGRAM ONLY)2022-05-03 04:19:10 Test Item Value Reference Range Interpretation Comments WHITE BLOOD CELL COUNT (BEAKER) 7.3 K/ L 3.5-10.5 (test code = 775) RED BLOOD CELL COUNT (BEAKER) 4.01 M/ L 4.63-6.08 L (test code = 761) HEMOGLOBIN (BEAKER) (test code = 11.2 GM/DL 13.7-17.5 L 410) HEMATOCRIT (BEAKER) (test code = 35.9 % 40.1-51.0 L 411) MEAN CORPUSCULAR VOLUME (BEAKER) 90 fL 79-92 (test code = 753) MEAN CORPUSCULAR HEMOGLOBIN 27.9 pg 25.7-32.2 (BEAKER) (test code = 751) MEAN CORPUSCULAR HEMOGLOBIN CONC 31.2 GM/DL 32.3-36.5 L (BEAKER) (test code = 752) RED CELL DISTRIBUTION WIDTH 14.8 % 11.6-14.4 H (BEAKER) (test code = 412) PLATELET COUNT (BEAKER) (test 263 K/CU MM 150-450 code = 756) MEAN PLATELET VOLUME (BEAKER) 9.5 fL 9.4-12.4 (test code = 754) NUCLEATED RED BLOOD CELLS 0 /100 WBC 0-0 (BEAKER) (test code = 413) OXYGEN SATURATION, [id number] 04:16:08 Test Item Value Reference Range Interpretation Comments O2 SATURATION (MEASURED) (BEAKER) 80.9 % (test code = 1455) BASIC METABOLIC [id number] 01:50:18 Test Item Value Reference Range Interpretation Comments SODIUM (BEAKER) 134 meq/L 136-145 L (test code = 381) POTASSIUM 3.8 meq/L 3.5-5.1 Specimen slight ly (BEAKER) (test hemolyzed code = 379) CHLORIDE (BEAKER) 87 meq/L 98-107 L (test code = 382) CO2 (BEAKER) 34 meq/L 22-29 H (test code = 355) BLOOD UREA 30 mg/dL 7-21 H NITROGEN (BEAKER) (test code = 354) CREATININE 2.16 mg/dL 0.57-1.25 H Specimen slight ly (BEAKER) (test hemolyzed code = 358) GLUCOSE RANDOM 125 mg/dL 70-105 H (BEAKER) (test code = 652) CALCIUM (BEAKER) 9.4 mg/dL 8.4-10.2 (test code = 697) EGFR (BEAKER) 39 Interpretatio n of eGFR (test code = [...] not appl icable for dialysis patien ts Hand Slitter ID - [id number] 01:50:17 Test Item Value Reference Range Interpretation Comments MAGNESIUM (BEAKER) 2.3 mg/dL 1.6-2.6 Specimen slightly (test code = 627) hemolyzed Hand Slitter ID - [id number] 01:47:14 Test Item Value Reference Range Interpretation Comments PARTIAL THROMBOPLASTIN TIME 76.9 seconds 22.5-36.0 H (BEAKER) (test code = 760) LACTIC ACID, [id number] 22:20:12 Test Item Value Reference Range Interpretation Comments LACTATE BLOOD VENOUS 2.22 mmol/L 0.50-2.20 H Specime n slightly (2) (BEAKER) (test hemolyzed code = 2872) Hand Slitter ID - ADMINOXYGEN SATURATION, [id number] 22:04:11 Test Item Value Reference Range Interpretation Comments O2 SATURATION (MEASURED) (BEAKER) 69.4 % (test code = 1455) [id number] 20:10:18 Test Item Value Reference Range Interpretation Comments LIPASE (BEAKER) (test code = 749) 38 U/L 8-78 Hand Slitter ID - [id number] 19:05:50 Test Item Value Reference Range Interpretation Comments PHOSPHORUS (BEAKER) (test code = 4.5 mg/dL 2.3-4.7 604) Hand Slitter ID - ADMINCOMPREHENSIVE METABOLIC [id number] 19:05:50 Test Item Value Reference Range Interpretation Comments TOTAL PROTEIN 7.0 gm/dL 6.0-8.3 (BEAKER) (test code = 770) ALBUMIN (BEAKER) 3.7 g/dL 3.5-5.0 (test code = 1145) ALKALINE 123 U/L 40-150 PHOSPHATASE (BEAKER) (test code = 346) BILIRUBIN TOTAL 2.0 mg/dL 0.2-1.2 H (BEAKER) (test code = 377) SODIUM (BEAKER) 133 meq/L 136-145 L (test code = 381) POTASSIUM (BEAKER) 3.8 meq/L 3.5-5.1 (test code = 379) CHLORIDE (BEAKER) 91 meq/L 98-107 L (test code = 382) CO2 (BEAKER) (test 31 meq/L 22-29 H code = 355) BLOOD UREA 31 mg/dL 7-21 H NITROGEN (BEAKER) (test code = 354) CREATININE 2.23 mg/dL 0.57-1.25 H (BEAKER) (test code = 358) GLUCOSE RANDOM 116 mg/dL 70-105 H (BEAKER) (test code = 652) CALCIUM (BEAKER) 9.6 mg/dL 8.4-10.2 (test code = 697) AST (SGOT) 97 U/L 5-34 H (BEAKER) (test code = 353) ALT (SGPT) 153 U/L 6-55 H (BEAKER) (test code = 347) EGFR (BEAKER) 37 Interpretati on of eGFR (test code = 1092) mL/min/1.73 [...] not appl icable for dialysis patien ts Hand Slitter ID - ADMINSpecimen slightly [id number] 19:05:49 Test Item Value Reference Range Interpretation Comments MAGNESIUM (BEAKER) (test code = 2.4 mg/dL 1.6-2.6 627) Hand Slitter ID - ADMINLACTIC ACID, [id number] 19:01:31 Test Item Value Reference Range Interpretation Comments LACTATE BLOOD VENOUS (2) (BEAKER) 2.35 mmol/L 0.50-2.20 H (test code = 2872) Hand Slitter ID - ADMINCT, [id number] 18:59:00Unlisted Reason for Exam - Click Yes and Enter Reason Below->NoProtocol Please Specify:->Standard ProtocolWill this procedure require oral contrast?->No [facility] 1980 Sex: MFINAL REPORT EXAM: CT Chest Abdomen Pelvis WITHOUT intravenous contrast 05/02/2022 6:36 PMINDICATION: Sepsis.COMPARISON: NoneTECHNIQUE:Chest Abdomen Pelvis was scanned utilizing a multidetector helical scanner from the lung apex through the level of the pubic symphysis without administration of IV contrast. Coronal and sagittal reformations were obtained. Routine protocol was performed. IV CONTRAST: NoneORAL CONTRAST: Water RADIATION DOSE: Total DLP: 974 mGy*cm. Dose modulation, iterative reconstruction, and/or weight based adjustment of the mA/kV was utilized to reduce the radiationdose to as low as reasonably achievable. COMPLICATIONS: None FINDINGS: LINES/ TUBES: Right IJ CVC inplace terminating within the SVC. LUNGS AND AIRWAYS: Right lower lobe patchy groundglass and consolidative airspace opacities. Mild left lingular and left lower lobe subsegmental atelectasis. Airways are normal. PLEURA: The pleural spaces are clear. HEART AND MEDIASTINUM: The thyroid gland is normal. No pathologic mediastinal, hilar or axillary lymphadenopathy. The heart is moderately enlarged. Thereis no pericardial effusion. Aorta and coronary arteries are unremarkable. HEPATOBILIARY: No focal hepatic lesions. No biliary ductal dilatation. The gallbladder appears unremarkable. SPLEEN: No splenome emmett. PANCREAS: No focal masses or ductal dilatation. ADRENALS: No adrenal nodules.KIDNEYS/URETERS: No hydronephrosis, stones, or solid mass lesions.PELVIC ORGANS/BLADDER: Alonso catheter in place smallamount of antidependent gas within the bladder lumen. Prostate within normal limits. PERITONEUM / RETROPERITONEUM: Trace free pelvic fluid. No free air.LYMPH NODES: No lymphadenopathy.VESSELS: Unremarkable. GI TRACT: No distention or wall thickening. Appendix is seen, normal. BONES: Mild degenerative changes at L5-S1, with slight L5 on S1 retrolisthesis. SOFT TISSUES: Mild asymmetric left greater than right lateral abdominal wall subcutaneous fat interstitial edema. IMPRESSION: 1.Right lower lobe pneumonia versus pneumonitis.2.Mild left lower lobe and lingular subsegmental atelectasis.3.Moderate cardiomegaly.4.Alonso catheter in place.5.Trace free pelvic fluid and mild asymmetric left greater than right lateral abdominal wall subcutaneous fat interstitial edema. Signed: Jack Steve MDReport Verified Date/Time: 05/02/2022 18:59:44 CT, CHEST, WITHOUT [id number] 18:59:00Unlisted Reason for Exam - Click Yes and Enter Reason Below->No [facility] 1980 Sex: MFINAL REPORT EXAM: CT Chest Abdomen Pelvis WITHOUT intravenous contrast 05/02/2022 6:36 PMINDICATION: Sepsis.COMPARISON: NoneTECHNIQUE:Chest Abdomen Pelvis was scanned utilizing a multidetector helical scanner from the lung apex through the level of the pubic symphysis without administration of IV contrast. Coronal and sagittal reformations were obtained. Routine protocol was performed. IV CONTRAST: NoneORAL CONTRAST: Water RADIATION DOSE: Total DLP: 974 mGy*cm. Dose modulation, iterative reconstruction, and/or weight based adjustment of the mA/kV was utilized to reduce the radiationdose to as low as reasonably achievable. COMPLICATIONS: None FINDINGS: LINES/ TUBES: Right IJ CVC inplace terminating within the SVC. LUNGS AND AIRWAYS: Right lower lobe patchy groundglass and consolidative airspace opacities. Mild left lingular and left lower lobe subsegmental atelectasis. Airways are normal. PLEURA: The pleural spaces are clear. HEART AND MEDIASTINUM: The thyroid gland is normal. No pathologic mediastinal, hilar or axillary lymphadenopathy. The heart is moderately enlarged. Thereis no pericardial effusion. Aorta and coronary arteries are unremarkable. HEPATOBILIARY: No focal hepatic lesions. No biliary ductal dilatation. The gallbladder appears unremarkable. SPLEEN: No splenome emmett. PANCREAS: No focal masses or ductal dilatation. ADRENALS: No adrenal nodules.KIDNEYS/URETERS: No hydronephrosis, stones, or solid mass lesions.PELVIC ORGANS/BLADDER: Alonso catheter in place smallamount of antidependent gas within the bladder lumen. Prostate within normal limits. PERITONEUM / RETROPERITONEUM: Trace free pelvic fluid. No free air.LYMPH NODES: No lymphadenopathy.VESSELS: Unremarkable. GI TRACT: No distention or wall thickening. Appendix is seen, normal. BONES: Mild degenerative changes at L5-S1, with slight L5 on S1 retrolisthesis. SOFT TISSUES: Mild asymmetric left greater than right lateral abdominal wall subcutaneous fat interstitial edema. IMPRESSION: 1.Right lower lobe pneumonia versus pneumonitis.2.Mild left lower lobe and lingular subsegmental atelectasis.3.Moderate cardiomegaly.4.Alonso catheter in place.5.Trace free pelvic fluid and mild asymmetric left greater than right lateral abdominal wall subcutaneous fat interstitial edema. Signed: Jack Steve [facility] Verified Date/Time: 05/02/2022 18:59:44 [id number] 18:37:45 Test Item Value Reference Range Interpretation Comments PARTIAL THROMBOPLASTIN TIME 56.0 seconds 22.5-36.0 H (BEAKER) (test code = 760) CBC (HEMOGRAM ONLY)2022-05-02 18:28:44 Test Item Value Reference Range Interpretation Comments WHITE BLOOD CELL COUNT (BEAKER) 7.2 K/ L 3.5-10.5 (test code = 775) RED BLOOD CELL COUNT (BEAKER) 4.16 M/ L 4.63-6.08 L (test code = 761) HEMOGLOBIN (BEAKER) (test code = 11.5 GM/DL 13.7-17.5 L 410) HEMATOCRIT (BEAKER) (test code = 36.8 % 40.1-51.0 L 411) MEAN CORPUSCULAR VOLUME (BEAKER) 89 fL 79-92 (test code = 753) MEAN CORPUSCULAR HEMOGLOBIN 27.6 pg 25.7-32.2 (BEAKER) (test code = 751) MEAN CORPUSCULAR HEMOGLOBIN CONC 31.3 GM/DL 32.3-36.5 L (BEAKER) (test code = 752) RED CELL DISTRIBUTION WIDTH 14.8 % 11.6-14.4 H (BEAKER) (test code = 412) PLATELET COUNT (BEAKER) (test 293 K/CU MM 150-450 code = 756) MEAN PLATELET VOLUME (BEAKER) 9.5 fL 9.4-12.4 (test code = 754) NUCLEATED RED BLOOD CELLS 0 /100 WBC 0-0 (BEAKER) (test code = 413) OXYGEN SATURATION, [id number] 18:20:49 Test Item Value Reference Range Interpretation Comments O2 SATURATION (MEASURED) (BEAKER) 66.0 % (test code = 1455) U/S, PELVIC, [id number] 17:12:00Reason for exam:->TANVIR vs CKD [facility] 1980 Sex: MFINAL REPORT TECHNIQUE: Grayscale ultrasound of the abdomen and pelvis. INDICATION: transamanitis hyperbili in setting of heart failure. Acute kidney injury versus chronic kidney disease. COMPARISON: None. FINDINGS: MIDLINE VASCULATURE: The visualized inferior vena cava is unremarkable. The maximum visualized aortic diameter is 2.1 cm. LIVER: Smooth liver contour. No focal lesions. The main portal vein is patent and measures 0.8 cm in diameter. BILIARY:Gallbladder: No gallstones or sludge. No gallbladder wall thickening, pericholecystic fluid, or distention. Negative sonographic Noe sign.Common bile duct measures 0.3 cm, within normal limits. No intrahepatic biliary ductal dilatation. PANCREAS: Incompletely visualized due to overlying bowel gas. SPLEEN: No splenomegaly. The spleen measures 6.3 cm in length. PERITONEUM: No free fluid. KIDNEYS: The right kidney is small at 8.4 x4 x 4.7 cm. The left kidney is normal in size at 9.3 x 5.2 x 3.6 cm. No hydronephrosis. A rounded are a in the left interpolar kidney measures 5.2 x 3.2 x 3 cm mass lesion. BLADDER: Decompressed by a catheter IMPRESSION: 1.A rounded area in the left interpolar kidney measures 5.2 x 3.2 x 3 cm and is indeterminate. This could be a prominent column of Madi or a solid renal mass. Further evaluation with either a CT or MR of the abdomen with and without intravenous contrast, renal mass protocol, is recommended for further evaluation. 2.The right kidney is small. No hydronephrosis 3.No biliary ductal Signed: eMng Miner [facility] Verified Date/Time: 05/02/2022 17:12:13 U/S, ABDOMINAL, [id number] 17:12:00Abdomen limited area? Add comment if clarification is needed.->Liver Reason for exam:->transamanitis hyperbili in setting of heart failure [facility] 1980 Sex: MFINAL REPORT TECHNIQUE: Grayscale ultrasound of the abdomen and pelvis. INDICATION: transamanitis hyperbili in setting of heart failure. Acute kidney injury versus chronic kidney disease. COMPARISON: None. FINDINGS: MIDLINE VASCULATURE: The visualized inferior vena cava is unremarkable. The maximum visualized aortic diameter is 2.1 cm. LIVER: Smooth liver contour. No focal lesions. The main portal vein is patent and measures 0.8 cm in diameter. BILIARY:Gallbladder: No gallstones or sludge. No gallbladder wall thickening, pericholecystic fluid, or distention. Negative sonographic Noe sign.Common bile duct measures 0.3 cm, within normal limits. No intrahepatic biliary ductal dilatation. PANCREAS: Incompletely visualized due to overlying bowel gas. SPLEEN: No splenomegaly. The spleen measures 6.3 cm in length. PERITONEUM: No free fluid. KIDNEYS: The right kidney is small at 8.4 x4 x 4.7 cm. The left kidney is normal in size at 9.3 x 5.2 x 3.6 cm. No hydronephrosis. A rounded are a in the left interpolar kidney measures 5.2 x 3.2 x 3 cm mass lesion. BLADDER: Decompressed by a catheter IMPRESSION: 1.A rounded area in the left interpolar kidney measures 5.2 x 3.2 x 3 cm and is indeterminate. This could be a prominent column of Madi or a solid renal mass. Further evaluation with either a CT or MR of the abdomen with and without intravenous contrast, renal mass protocol, is recommended for further evaluation. 2.The right kidney is small. No hydronephrosis 3.No biliary ductal Signed: Meng Miner MDReport Verified Date/Time: 05/02/2022 17:12:13 POCT-GLUCOSE [id number] 16:13:34 Test Item Value Reference Range Interpretation Comments POC-GLUCOSE METER 141 mg/dL 70-110 H : TESTED A T [facility] 6720 (BEAKER) (test code = FILEMON [place], 1538) [id number]: Hand Slitter/Techni macrina ID = [id number] for FLORENTINO ALEISHAJINNY Rodríguez LACTIC ACID, [id number] 15:51:20 Test Item Value Reference Range Interpretation Comments LACTATE BLOOD VENOUS (2) (BEAKER) 5.27 mmol/L 0.50-2.20 HH (test code = 2872) Hand Slitter ID - ADMINBLOOD GAS, [id number] 14:48:59 Test Item Value Reference Range Interpretation Comments PH VENOUS (BEAKER) (test code = 7.42 7.32-7.42 701) PCO2 VENOUS (BEAKER) (test code = 45 mm Hg 41-51 755) PO2 VENOUS (BEAKER) (test code = 28 mm Hg 25-40 702) O2 SATURATION VENOUS (BEAKER) 53.9 % 40.0-70.0 (test code = 703) HCO3 VENOUS (BEAKER) (test code = 29 mmol/L 21-29 705) BASE EXCESS VENOUS (BEAKER) (test 3.8 mmol/L -2.0-3.0 H code = 704) PATIENT TEMPERATURE (BEAKER) (test 37.0 code = 1818) FIO2 (BEAKER) (test code = 1819) 36.0 OXYGEN SATURATION, [id number] 14:48:58 Test Item Value Reference Range Interpretation Comments O2 SATURATION (MEASURED) (BEAKER) 42.3 % (test code = 1455) RAD, CHEST, 1 VIEW, NON [id number] 14:46:00Reason for exam:->Shortness of breathShould this be performed at the bedside?->Yes [facility] 1980 Sex: MFINAL REPORT RAD, CHEST, 1 VIEW, NON DEPT INDICATION: Shortness of breath COMPARISON: Prior day's exam TECHNIQUE: Portable frontal view(s) of the chest. FINDINGS: Support Lines and Devices: Stable. Lungs and pleura: Unchanged airspace and pleural opacities. No pneumothorax identified. Heart and mediastinum: Stable contours. Stable surgical changes. Additional findings: The left breastwas removed. IMPRESSION: 1.No significant change from prior exam.2.Stable cardiomegaly. Signed: Timur Vazquezepelan Verified Date/Time: 05/02/2022 14:46:54 Reading Location: [address] Reading Room POCT- GLUCOSE [id number] 08:03:36 Test Item Value Reference Range Interpretation Comments POC-GLUCOSE METER 131 mg/dL 70-110 H : TESTED A T [facility] 6720 (BEAKER) (test code = FILEMON Fuentes [facility], 1538) [address]: Hand Slitter/Techni macrina ID = [id number] for JINNY ALMANZA [id number] 05:52:23 Test Item Value Reference Range Interpretation Comments MAGNESIUM (BEAKER) (test code = 2.2 mg/dL 1.6-2.6 627) Hand Slitter ID - ADMINCOMPREHENSIVE METABOLIC [id number] 05:52:23 Test Item Value Reference Range Interpretation Comments TOTAL PROTEIN 6.4 gm/dL 6.0-8.3 (BEAKER) (test code = 770) ALBUMIN (BEAKER) 3.4 g/dL 3.5-5.0 L (test code = 1145) ALKALINE 100 U/L 40-150 PHOSPHATASE (BEAKER) (test code = 346) BILIRUBIN TOTAL 1.8 mg/dL 0.2-1.2 H (BEAKER) (test code = 377) SODIUM (BEAKER) 135 meq/L 136-145 L (test code = 381) POTASSIUM (BEAKER) 3.6 meq/L 3.5-5.1 (test code = 379) CHLORIDE (BEAKER) 92 meq/L 98-107 L (test code = 382) CO2 (BEAKER) (test 31 meq/L 22-29 H code = 355) BLOOD UREA 27 mg/dL 7-21 H NITROGEN (BEAKER) (test code = 354) CREATININE 1.95 mg/dL 0.57-1.25 H (BEAKER) (test code = 358) GLUCOSE RANDOM 107 mg/dL 70-105 H (BEAKER) (test code = 652) CALCIUM (BEAKER) 9.3 mg/dL 8.4-10.2 (test code = 697) AST (SGOT) 64 U/L 5-34 H (BEAKER) (test code = 353) ALT (SGPT) 133 U/L 6-55 H (BEAKER) (test code = 347) EGFR (BEAKER) 44 Interpretatio n of eGFR (test code = [...] not appl icable for dialysis patien ts Hand Slitter ID - ADMINSpecimen slightly ictericPROTHROMBIN [id number] 05:07:18 Test Item Value Reference Range Interpretation Comments PROTIME (BEAKER) (test code = 20.6 seconds 11.9-14.2 H 759) INR (BEAKER) (test code = 370) 1.89 <=5.90 RECOMMENDED COUMADIN/WARFARIN INR THERAPY RANGESSTANDARD DOSE: 2.0 - 3.0 Includes: PROPHYLAXIS for venous thrombosis, systemic embolization; TREATMENT for venous thrombosis and/or pulmonary embolus.HIGH RISK: Target INR is 2.5-3.5 for patients with mechanical heart valves.CBC (HEMOGRAM ONLY)2022-05-02 04:37:09 Test Item Value Reference Range Interpretation Comments WHITE BLOOD CELL COUNT (BEAKER) 7.6 K/ L 3.5-10.5 (test code = 775) RED BLOOD CELL COUNT (BEAKER) 3.92 M/ L 4.63-6.08 L (test code = 761) HEMOGLOBIN (BEAKER) (test code = 11.1 GM/DL 13.7-17.5 L 410) HEMATOCRIT (BEAKER) (test code = 35.6 % 40.1-51.0 L 411) MEAN CORPUSCULAR VOLUME (BEAKER) 91 fL 79-92 (test code = 753) MEAN CORPUSCULAR HEMOGLOBIN 28.3 pg 25.7-32.2 (BEAKER) (test code = 751) MEAN CORPUSCULAR HEMOGLOBIN CONC 31.2 GM/DL 32.3-36.5 L (BEAKER) (test code = 752) RED CELL DISTRIBUTION WIDTH 15.0 % 11.6-14.4 H (BEAKER) (test code = 412) PLATELET COUNT (BEAKER) (test 268 K/CU MM 150-450 code = 756) MEAN PLATELET VOLUME (BEAKER) 9.4 fL 9.4-12.4 (test code = 754) NUCLEATED RED BLOOD CELLS 0 /100 WBC 0-0 (BEAKER) (test code = 413) URINALYSIS [id number] 01:27:42 Test Item Value Reference Range Interpretation Comments RBC UA (BEAKER) (test code = 519) 15 /HPF WBC UA (BEAKER) (test code = 520) 13 /HPF BACTERIA (BEAKER) (test code = 517) Rare MUCUS (BEAKER) (test code = 1574) Rare SQUAMOUS EPITHELIAL (BEAKER) (test < /HPF code = 516) HYALINE CASTS (BEAKER) (test code = 19 /LPF 514) CASTS (BEAKER) (test code = 1579) 6 /LPF CRYSTALS, URINE (BEAKER) (test code = Rare None Seen A 1521) Hand Slitter ID - techURINALYSIS WITH MICROSCOPIC IF [id number] 01:27:40 Test Item Value Reference Range Interpretation Comments COLOR (BEAKER) (test code = 470) Yellow CLARITY (BEAKER) (test code = 469) Hazy SPECIFIC GRAVITY UA (BEAKER) (test 1.016 1.001-1.035 code = 468) PH UA (BEAKER) (test code = 467) 5.5 5.0-8.0 PROTEIN UA (BEAKER) (test code = 50 mg/dL Negative A 464) GLUCOSE UA (BEAKER) (test code = Negative Negative 365) KETONES UA (BEAKER) (test code = Negative Negative 371) BILIRUBIN UA (BEAKER) (test code = Negative Negative 462) BLOOD UA (BEAKER) (test code = 461) Moderate Negative A NITRITE UA (BEAKER) (test code = Negative Negative 465) LEUKOCYTE ESTERASE UA (BEAKER) (test Moderate Negative A code = 466) UROBILINOGEN UA (BEAKER) (test code 0.2 0.2-1.0 = 463) SOURCE(BEAKER) (test code = 2795) Hand Slitter ID - [auto]Hand Slitter ID - techPOCT-GLUCOSE [id number] 17:25:12 Test Item Value Reference Range Interpretation Comments POC-GLUCOSE METER 174 mg/dL 70-110 H : TESTED A T BSC 6720 (BEAKER) (test code = FILEMON Fuentes [place], [address]) [id number]: Hand Slitter/Techni macrina ID = [id number] for Kaye Lee BASIC METABOLIC [id number] 13:46:09 Test Item Value Reference Range Interpretation Comments SODIUM (BEAKER) 136 meq/L 136-145 (test code = 381) POTASSIUM 4.2 meq/L 3.5-5.1 Specimen slight ly (BEAKER) (test hemolyzed code = 379) CHLORIDE (BEAKER) 91 meq/L 98-107 L (test code = 382) CO2 (BEAKER) 30 meq/L 22-29 H (test code = 355) BLOOD UREA 27 mg/dL 7-21 H NITROGEN (BEAKER) (test code = 354) CREATININE 2.41 mg/dL 0.57-1.25 H Specimen slight ly (BEAKER) (test hemolyzed code = 358) GLUCOSE RANDOM 134 mg/dL 70-105 H (BEAKER) (test code = 652) CALCIUM (BEAKER) 10.1 mg/dL 8.4-10.2 (test code = 697) EGFR (BEAKER) 34 Interpretatio n of eGFR (test code = [...] not as accur ate as Creatinine Cathy diazce in predicting glom erular filtration rate . Estimated GFR is not appl icable for dialysis patien ts Hand Slitter ID - ADMINSpecimen slightly [id number] 13:36:48 Test Item Value Reference Range Interpretation Comments PARTIAL THROMBOPLASTIN TIME 32.4 seconds 22.5-36.0 (simpleFLOORS) (test code = 760) PROTHROMBIN TIME/[id number] 13:35:45 Test Item Value Reference Range Interpretation Comments PROTIME (simpleFLOORS) (test code = 22.4 seconds 11.9-14.2 H 759) INR (simpleFLOORS) (test code = 370) 2.12 <=5.90 RECOMMENDED COUMADIN/WARFARIN INR THERAPY RANGESSTANDARD DOSE: 2.0 - 3.0 Includes: PROPHYLAXIS for venous thrombosis, systemic embolization; TREATMENT for venous thrombosis and/or pulmonary embolus.HIGH RISK: Target INR is 2.5-3.5 for patients with mechanical heart valves.POCT-GLUCOSE [id number] 11:21:07 Test Item Value Reference Range Interpretation Comments POC-GLUCOSE METER 159 mg/dL 70-110 H : TESTED A [facility] (simpleFLOORS) (test code = [place] [place] [place], 1538) [address]: Hand Slitter/Techni macrina ID = [id number] for Kaye Lee HEMOGLOBIN [id number] 08:36:23 Test Item Value Reference Range Interpretation Comments HEMOGLOBIN A1C 6.0 % See_Comment H [Automated m essage] ELECTROPHORESIS (simpleFLOORS) The system which (test code = 3811) generated this result transmitted ref erence range: <=5.6%. The reference range was not used to int erpret this result as normal/abnormal . "The A1c is measured using a NGSP-certified method. HbA1c value equal to or greater than 6.5% as thediagnosis cutoff for diabetes. An HbA1c value of 5.7- 6.4% indicates increased risk for diabetes (prediabetes)."Hand Slitter ID - ADMPOCT- GLUCOSE [id number] 08:00:36 Test Item Value Reference Range Interpretation Comments POC-GLUCOSE METER 139 mg/dL 70-110 H : TESTED A T [facility] 6720 (simpleFLOORS) (test code = Last Size [facility], 1538) [address]: Hand Slitter/Techni macrina ID = [id number] for Kaye Lee RAD, CHEST, 1 VIEW, NON [id number] 07:47:00Reason for exam:->CVC verificationShould this be performed at the bedside?->Yes [facility] 1980 Sex: MFINAL REPORT RAD, CHEST, 1 VIEW, NON DEPT INDICATION: CVC verification COMPARISON: Prior day's exam TECHNIQUE: Portable frontal view(s) of the chest. FINDINGS: Support Lines and Devices: The right internal jugular vein central venous catheter tip overlies the superior vena cava. Lungs and pleura: Unchanged airspace and pleural opacities. No pneumothorax identified. Heart and mediastinu m: Stable contours. Stable surgical changes. Additional findings: An overlying life vest is again seen. IMPRESSION: The right internal jugular vein central venous catheter tip overlies the superior vena cava. Signed: Timur Vazquez [facility] Verified Date/Time: 05/01/2022 07:47:15 Reading Location: [address] Reading Room COMPREHENSIVE METABOLIC [id number] 04:21:31 Test Item Value Reference Range Interpretation Comments TOTAL PROTEIN 6.4 gm/dL 6.0-8.3 (BEAKER) (test code = 770) ALBUMIN (BEAKER) 3.6 g/dL 3.5-5.0 (test code = 1145) ALKALINE 78 U/L 40-150 PHOSPHATASE (BEAKER) (test code = 346) BILIRUBIN TOTAL 2.5 mg/dL 0.2-1.2 H (BEAKER) (test code = 377) SODIUM (BEAKER) 137 meq/L 136-145 (test code = 381) POTASSIUM (BEAKER) 3.0 meq/L 3.5-5.1 L (test code = 379) CHLORIDE (BEAKER) 92 meq/L 98-107 L (test code = 382) CO2 (BEAKER) (test 29 meq/L 22-29 code = 355) BLOOD UREA 24 mg/dL 7-21 H NITROGEN (BEAKER) (test code = 354) CREATININE 2.38 mg/dL 0.57-1.25 H (BEAKER) (test code = 358) GLUCOSE RANDOM 105 mg/dL 70-105 (BEAKER) (test code = 652) CALCIUM (BEAKER) 9.3 mg/dL 8.4-10.2 (test code = 697) AST (SGOT) 65 U/L 5-34 H (BEAKER) (test code = 353) ALT (SGPT) 113 U/L 6-55 H (BEAKER) (test code = 347) EGFR (BEAKER) 34 Interpretatio n of eGFR (test code = [...] not appl icable for dialysis patien ts Hand Slitter ID - CJ WOperator ID - ADMINOperator ID - ADMINSpecimen slightly ictericPROTEIN, RANDOM [id number] 04:10:18 Test Item Value Reference Range Interpretation Comments PROTEIN, URINE (BEAKER) (test code = < mg/dL 0-14 1569) Hand Slitter ID - ADMINURINALYSIS W/ [id number] 04:05:53 Test Item Value Reference Range Interpretation Comments COLOR (BEAKER) (test code = 470) Colorless CLARITY (BEAKER) (test code = Clear 469) SPECIFIC GRAVITY UA (BEAKER) 1.006 1.001-1.035 (test code = 468) PH UA (BEAKER) (test code = 467) 7.0 5.0-8.0 PROTEIN UA (BEAKER) (test code = Negative Negative 464) GLUCOSE UA (BEAKER) (test code = Negative Negative 365) KETONES UA (BEAKER) (test code = Negative Negative 371) BILIRUBIN UA (BEAKER) (test code Negative Negative = 462) BLOOD UA (BEAKER) (test code = Negative Negative 461) NITRITE UA (BEAKER) (test code = Negative Negative 465) LEUKOCYTE ESTERASE UA (BEAKER) Negative Negative (test code = 466) UROBILINOGEN UA (BEAKER) (test 0.2 0.2-1.0 code = 463) RBC UA (BEAKER) (test code = 1 /HPF 519) WBC UA (BEAKER) (test code = 5 /HPF 520) SOURCE(BEAKER) (test code = Urine, Alonso 0346) Hand Slitter ID - [auto]Hand Slitter ID - techCREATININE, RANDOM [id number] 04:03:21 Test Item Value Reference Range Interpretation Comments CREATININE URINE (BEAKER) (test 12.2 mg/dL code = 375) Reference Range: No NormalsOperator ID - [id number] 03:45:57 Test Item Value Reference Range Interpretation Comments MAGNESIUM (BEAKER) (test code = 2.1 mg/dL 1.6-2.6 627) Hand Slitter ID - CJ WLIPID [id number] 03:45:57 Test Item Value Reference Range Interpretation Comments TRIGLYCERIDES (BEAKER) (test code = 96 mg/dL 540) CHOLESTEROL (BEAKER) (test code = 121 mg/dL 631) HDL CHOLESTEROL (BEAKER) (test code 24 mg/dL = 976) LDL CHOLESTEROL CALCULATED (BEAKER) 78 mg/dL (test code = 633) Triglyceride Reference Range: Low Risk <150 Borderline 150-199 High Risk 200- 499 Very High Risk >=500Cholesterol Reference Range: Low Risk <200 Borderline 200-239 High Risk >240HDL Cholesterol Reference Range: Low Risk >=60 High Risk <40LDL Cholesterol Reference Range: Optimal <100 Near Optimal 100-129 Borderline 130-159 High 160-189 Very High >=190 Hand Slitter ID - CJ WSpecimen slightly ictericCBC (HEMOGRAM ONLY)2022-05-01 02:56:25 Test Item Value Reference Range Interpretation Comments WHITE BLOOD CELL COUNT (BEAKER) 8.2 K/ L 3.5-10.5 (test code = 775) RED BLOOD CELL COUNT (BEAKER) 3.98 M/ L 4.63-6.08 L (test code = 761) HEMOGLOBIN (BEAKER) (test code = 11.1 GM/DL 13.7-17.5 L 410) HEMATOCRIT (BEAKER) (test code = 35.6 % 40.1-51.0 L 411) MEAN CORPUSCULAR VOLUME (BEAKER) 89 fL 79-92 (test code = 753) MEAN CORPUSCULAR HEMOGLOBIN 27.9 pg 25.7-32.2 (BEAKER) (test code = 751) MEAN CORPUSCULAR HEMOGLOBIN CONC 31.2 GM/DL 32.3-36.5 L (BEAKER) (test code = 752) RED CELL DISTRIBUTION WIDTH 15.1 % 11.6-14.4 H (BEAKER) (test code = 412) PLATELET COUNT (BEAKER) (test 265 K/CU MM 150-450 code = 756) MEAN PLATELET VOLUME (BEAKER) 9.8 fL 9.4-12.4 (test code = 754) NUCLEATED RED BLOOD CELLS 0 /100 WBC 0-0 (BEAKER) (test code = 413) PROTHROMBIN TIME/[id number] 02:46:42 Test Item Value Reference Range Interpretation Comments PROTIME (BEAKER) (test code = 21.6 seconds 11.9-14.2 H 759) INR (BEAKER) (test code = 370) 2.02 <=5.90 RECOMMENDED COUMADIN/WARFARIN INR THERAPY RANGESSTANDARD DOSE: 2.0 - 3.0 Includes: PROPHYLAXIS for venous thrombosis, systemic embolization; TREATMENT for venous thrombosis and/or pulmonary embolus.HIGH RISK: Target INR is 2.5-3.5 for patients with mechanical heart valves.LACTIC ACID, [id number] 02:42:46 Test Item Value Reference Range Interpretation Comments LACTATE BLOOD VENOUS (2) (BEAKER) 1.24 mmol/L 0.50-2.20 (test code = 2872) Hand Slitter ID - ADMINSpecimen slightly ictericOXYGEN SATURATION, MEASURED 2022-05-01 02:33:59 Test Item Value Reference Range Interpretation Comments O2 SATURATION (MEASURED) (EMMAAKER) 73.2 % (test code = 1455) POCT-GLUCOSE [id number] 23:46:12 Test Item Value Reference Range Interpretation Comments POC-GLUCOSE METER 128 mg/dL 70-110 H : TESTED A T [facility] 6720 (MIA) (test code [facility], = 1538) [address]: Hand Slitter/Techni macrina ID = [id number] for KAREN VINSON [id number] 21:40:26 Test Item Value Reference Range Interpretation Comments MAGNESIUM (EMMAAKER) (test code = 2.2 mg/dL 1.6-2.6 627) Hand Slitter ID - ADMINRAD, CHEST, 1 VIEW, NON [id number] 19:00:00Reason for exam:->decompensated HFShould this be performed at the bedside?->Yes [facility] 1980 Sex: MFINAL REPORT Exam: RAD, CHEST, 1 VIEW, NON DEPTDate: 04/30/2022 7:00 PM Indication:decompensated HFComparison: 04/02/2022 FINDINGS: Lines/Tubes/Devices: Multiple electronic devices projecting over the chest. Overlying EKG leads. Lungs/pleura:Lungs are well inflated. Central vascular prominence. No pleural effusion. No pneumothorax. Heart/Mediastinum:Cardiomegaly. Bones/Soft Tissues: No acute osseous abnormality. Upper abdomen: Unremarkable. IMPRESSION:Cardiomegaly with central vascularprominence, congestion. Signed: Jack Steve Verified Date/Time: 04/30/2022 19:00:41 [id number] 18:30:58 Test Item Value Reference Range Interpretation Comments PROCALCITONIN (BEAKER) (test code 5.65 ng/mL <0.05 H = 3036) SEPSIS RISK (ng/mL)Low: 0.05-0.50Intermediate: 0.51-2.00High: >=2.01TSH/FREE T4 IF [id number] 18:22:35 Test Item Value Reference Range Interpretation Comments THYROID STIMULATING HORMONE 1.602 uIU/mL 0.350-4.940 (BEAKER) (test code = 772) Hand Slitter ID - [id number] 18:22:34 Test Item Value Reference Range Interpretation Comments FERRITIN (BEAKER) (test code = 320.39 ng/mL 5.00-275.00 H 361) Hand Slitter ID - DBB-TYPE NATRIURETIC FACTOR (BNP)2022-04-30 18:08:34 Test Item Value Reference Range Interpretation Comments B-TYPE NATRIURETIC PEPTIDE 2641 pg/mL 0-100 H (BEAKER) (test code = 700) Hand Slitter ID - DBHIGH SENSITIVITY TROPONIN [id number] 18:06:52 Test Item Value Reference Range Interpretation Comments HIGH SENSITIVITY TROPONIN I (test 13 pg/ml <=35 code = 3159928) Hand Slitter ID - DBThe HVAC TECHNICIAN RESIDENTIAL STAT High Sensitivity Troponin-I results should be used in conjunctionwith other diagnostic information such as ECG, clinical observations and information, and patient symptoms to aid in the diagnosis of VT.IRON, TIBC, % SAT. (WITHOUT FERRITIN)2022-04-30 17:59:12 Test Item Value Reference Range Interpretation Comments IRON (BEAKER) (test code = 547) 43.0 ug/dL 40.0-160.0 TOTAL IRON BINDING CAPACITY 254 ug/dL 250-450 (BEAKER) (test code = 769) IRON % SATURATION (2) (BEAKER) 17 % 20-55 L (test code = 2590) Hand Slitter ID - DBCOMPREHENSIVE METABOLIC [id number] 17:58:50 Test Item Value Reference Range Interpretation Comments TOTAL PROTEIN 6.4 gm/dL 6.0-8.3 (BEAKER) (test code = 770) ALBUMIN (BEAKER) 3.6 g/dL 3.5-5.0 (test code = 1145) ALKALINE 84 U/L 40-150 PHOSPHATASE (BEAKER) (test code = 346) BILIRUBIN TOTAL 3.1 mg/dL 0.2-1.2 H (BEAKER) (test code = 377) SODIUM (BEAKER) 136 meq/L 136-145 (test code = 381) POTASSIUM (BEAKER) 3.5 meq/L 3.5-5.1 (test code = 379) CHLORIDE (BEAKER) 96 meq/L 98-107 L (test code = 382) CO2 (BEAKER) (test 26 meq/L 22-29 code = 355) BLOOD UREA 25 mg/dL 7-21 H NITROGEN (BEAKER) (test code = 354) CREATININE 2.53 mg/dL 0.57-1.25 H (BEAKER) (test code = 358) GLUCOSE RANDOM 120 mg/dL 70-105 H (BEAKER) (test code = 652) CALCIUM (BEAKER) 9.0 mg/dL 8.4-10.2 (test code = 697) AST (SGOT) 62 U/L 5-34 H (BEAKER) (test code = 353) ALT (SGPT) 117 U/L 6-55 H (BEAKER) (test code = 347) EGFR (BEAKER) 32 Interpretatio n of eGFR (test code = [...] not appl icable for dialysis patien ts Hand Slitter ID - DBSpecimen slightly [id number] 17:58:10 Test Item Value Reference Range Interpretation Comments PARTIAL THROMBOPLASTIN TIME 32.5 seconds 22.5-36.0 (BEAKER) (test code = 760) LACTIC ACID, [id number] 17:56:34 Test Item Value Reference Range Interpretation Comments LACTATE BLOOD VENOUS 2.81 mmol/L 0.50-2.20 H Specime n slightly (2) (BEAKER) (test hemolyzed code = 1032) Hand Slitter ID - DBSpecimen slightly ictericCBC (HEMOGRAM ONLY)2022-04-30 17:45:51 Test Item Value Reference Range Interpretation Comments WHITE BLOOD CELL COUNT (BEAKER) 9.1 K/ L 3.5-10.5 (test code = 775) RED BLOOD CELL COUNT (BEAKER) 4.09 M/ L 4.63-6.08 L (test code = 761) HEMOGLOBIN (BEAKER) (test code = 11.5 GM/DL 13.7-17.5 L 410) HEMATOCRIT (BEAKER) (test code = 36.7 % 40.1-51.0 L 411) MEAN CORPUSCULAR VOLUME (BEAKER) 90 fL 79-92 (test code = 753) MEAN CORPUSCULAR HEMOGLOBIN 28.1 pg 25.7-32.2 (BEAKER) (test code = 751) MEAN CORPUSCULAR HEMOGLOBIN CONC 31.3 GM/DL 32.3-36.5 L (BEAKER) (test code = 752) RED CELL DISTRIBUTION WIDTH 15.2 % 11.6-14.4 H (BEAKER) (test code = 412) PLATELET COUNT (BEAKER) (test 278 K/CU MM 150-450 code = 756) MEAN PLATELET VOLUME (BEAKER) 9.7 fL 9.4-12.4 (test code = 754) NUCLEATED RED BLOOD CELLS 0 /100 WBC 0-0 (BEAKER) (test code = 413) BLOOD GAS, [id number] 17:41:31 Test Item Value Reference Range Interpretation Comments PH VENOUS (BEAKER) (test code = 7.47 7.32-7.42 H 701) PCO2 VENOUS (BEAKER) (test code = 40 mm Hg 41-51 L 755) PO2 VENOUS (BEAKER) (test code = 41 mm Hg 25-40 H 702) O2 SATURATION VENOUS (BEAKER) 79.8 % 40.0-70.0 H (test code = 703) HCO3 VENOUS (BEAKER) (test code = 28 mmol/L 21-29 705) BASE EXCESS VENOUS (BEAKER) (test 4.4 mmol/L -2.0-3.0 H code = 704) PATIENT TEMPERATURE (BEAKER) (test 37.0 code = 1818) FIO2 (BEAKER) (test code = 1819) 21.0 POC-Glucose [id number] 11:42:49 Test Item Value Reference Range Interpretation Comments POC-Glucose Meter (test 124 mg/dL 70-110 H : TE STED AT [facility] code = 1538) [address] [facility] [address]: Hand Slitter/Techni macrina ID = [id number] for Donavan [facility] Interpretation (test Abnormal code = 42404-9) [facility] [id number] 11:42:49 Test Item Value Reference Range Interpretation Comments POC-GLUCOSE METER 124 mg/dL 70-110 H : TESTED A T [facility]17 (BEAKER) (test code [facility], = 1538) [place] [address]: Hand Slitter/Techni macrina ID = [id number] for Donavan Orozco POCT-GLUCOSE [id number] 07:36:39 Test Item Value Reference Range Interpretation Comments POC-GLUCOSE METER 105 mg/dL 70-110 : TESTED A T [facility] (BEAKER) (test code [facility], = 1538) [place] [address]: Hand Slitter/Techni macrina ID = [id number] for Donavan Orozco PROTHROMBIN TIME/[id number] 06:06:58 Test Item Value Reference Range Interpretation [...] eGFR (test code = 1092) mL/min/1.73 values S tage Description sq m Result G1 Ana l [...] not appl icable for dialysis patien ts Hand Slitter ID - NSKB25Qkswlyfd ID - WRLM07Hloswvpv ID - OVCZ93Coxadvvh ID - FXUN74Migcwthk ID - WNGX90Matdbymm ID - QNJH44Yccytaku ID - SPRQ91Njeruyco ID - MCSG23Qjaiwrds ID - APBT22Joloxvnb ID - UZLT57Wgtcmlke ID - SLTZ30Fwpltwmz ID - FYRE71Xncedkhy ID - GPUD61Dqybsydi ID - BIIM01Owpiglbm ID - KIAW07Jazhblzu ID - [id number] 04:45:15 Test Item Value Reference Range Interpretation Comments MAGNESIUM (BEAKER) (test code = 2.3 mg/dL 1.5-3.0 627) Hand Slitter ID - YGFW27Hujmxjsp ID - JETN97Fbetvmht ID - JFLK84Qfpckfpd ID - [id number] CBC W/PLT COUNT & AUTO [id number] 04:21:17 Test Item Value Reference Range Interpretation [...] PERCENT (BEAKER) (test code = 2801) POCT-GLUCOSE [id number] 21:10:20 Test Item Value Reference Range Interpretation Comments POC-GLUCOSE METER 114 mg/dL 70-110 H : TESTED A T [facility] (BEAKER) (test code [address], = 1538) [place] [address]: Hand Slitter/Techni macrina ID = [id number] for amanda Antunez POCT-GLUCOSE [id number] 17:28:14 Test Item Value Reference Range Interpretation Comments POC-GLUCOSE METER 92 mg/dL 70-110 : TESTED A T [facility] (BEAKER) (test code = [address], 1538) [place] [address]: Hand Slitter/Techni macrina ID = [id number] for Mitchell h, Matilda HEPATITIS PANEL, [id number] 12:53:45 Test Item Value Reference Range Interpretation Comments HEPATITIS A IGM ANTIBODY (BEAKER) Nonreactive Nonreactive (test code = 498) HEPATITIS B CORE IGM ANTIBODY Nonreactive Nonreactive (BEAKER) (test code = 645) HEPATITIS C ANTIBODY (BEAKER) Nonreactive Nonreactive (test code = 367) HEPATITIS B SURFACE ANTIGEN (2) Nonreactive Nonreactive (BEAKER) (test code = 2585) Hand Slitter ID - ADMINPOCT-GLUCOSE [id number] 12:16:18 Test Item Value Reference Range Interpretation Comments POC-GLUCOSE METER 109 mg/dL 70-110 : TESTED A T [facility] (BEAKER) (test code [address], = 1538) [facility] [address]: Hand Slitter/Techni macrina ID = [id number] for Mitchell h, Matilda POCT-GLUCOSE [id number] 08:28:37 Test Item Value Reference Range Interpretation Comments POC-GLUCOSE METER 94 mg/dL 70-110 : TESTED A T [facility] (BEAKER) (test code = [address], 1538) [facility] [address]: Hand Slitter/Techni macrina ID = [id number] for Mitchell h, Matilda PROTHROMBIN TIME/[id number] 06:15:10 Test Item Value Reference Range Interpretation [...] not appl icable for dialysis patien ts Hand Slitter ID - LITOOperator ID - LITOOperator ID [...] PERCENT (BEAKER) (test code = 2801) POCT-GLUCOSE [id number] 20:47:32 Test Item Value Reference Range Interpretation Comments POC-GLUCOSE METER 120 mg/dL 70-110 H : TESTED A T [facility] (BEAKER) (test code [address], = 1538) [facility] [place] [address]: Hand Slitter/Techni macrina ID = [id number] for Donavan Orozco Urea Nitrogen, random [id number] 16:26:40 Test Item Value Reference Range Interpretation Comments Urea Nitrogen, Ur 584 mg/dL (test code = 3095-7) LASHON (test code = Reference Range: No LASHON) NormalsOperator ID - DB [facility] HospitalUREA NITROGEN, RANDOM [id number] 16:26:40 Test Item Value Reference Range Interpretation Comments UREA NITROGEN URINE (BEAKER) (test 584 mg/dL code = 538) Reference Range: No NormalsOperator ID - DBProtein, random hiags2650-43-98 12:57:07 Test Item Value Reference Range Interpretation Comments Protein, Urine (test code 5 mg/dL 0-14 = 2888-6) LASHON (test code = LASHON) Hand Slitter ID - [id number] Lab Interpretation (test Normal code = 71838-0) [facility] HospitalPROTEIN, RANDOM [id number] 12:57:07 Test Item Value Reference Range Interpretation Comments PROTEIN, URINE (BEAKER) (test code = 5 mg/dL 0-14 1569) Hand Slitter ID - [id number], random [id number] 12:56:59 Test Item Value Reference Range Interpretation Comments Creatinine, Ur 85.2 mg/dL (test code = 2161-8) LASHON (test code = Reference Range: No LASHON) NormalsOperator ID - [id number] [facility] HospitalCREATININE, RANDOM [id number] 12:56:59 Test Item Value Reference Range Interpretation Comments CREATININE URINE (BEAKER) (test 85.2 mg/dL code = 375) Reference Range: No NormalsOperator ID - [id number] with Microscopic If [id number] 12:50:30 Test Item Value Reference Range Interpretation Comments Color, UA (test code = 5778-6) Yellow Clarity, UA (test code = 5767-9) Clear Specific [place], UA (test code = 1.015 1.001-1.035 5811-5) pH, UA (test code = 5803-2) 6.0 5.0-8.0 Protein, UA (test code = 04152-3) Negative Negative Glucose, UA (test code = 365) Negative Negative Ketones, UA (test code = 2514-8) Negative Negative Bilirubin, UA (test code = 25801-2) Negative Negative Blood, UA (test code = 87931-7) Negative Negative Nitrite, UA (test code = 5802-4) Negative Negative Leukocytes, UA (test code = 5799-2) Negative Negative Urobilinogen, UA (test code = 0.2 85669-2) Specimen Source (test code = 2795) [facility] HospitalURINALYSIS WITH MICROSCOPIC IF [id number] 12:50:30 Test Item Value Reference Range Interpretation [...] 463) SOURCE(BEAKER) (test code = 2795) POCT-GLUCOSE [id number] 12:10:39 Test Item Value Reference Range Interpretation Comments POC-GLUCOSE METER 110 mg/dL 70-110 : TESTED A T [facility] (BEAKER) (test code [address], = 1538) [place] [address]: Hand Slitter/Techni macrina ID = [id number] for Rhonda cullenZandrae POCT-GLUCOSE [id number] 07:39:51 Test Item Value Reference Range Interpretation Comments POC-GLUCOSE METER 112 mg/dL 70-110 H : TESTED A T [facility] (BEAKER) (test code [address], = 1538) [facility] 77 [address]: Hand Slitter/Techni macrina ID = [id number] for Araceli Raines B-TYPE NATRIURETIC FACTOR (BNP)2022-04-16 04:28:27 Test Item Value Reference Range Interpretation Comments B-TYPE NATRIURETIC PEPTIDE 2445 pg/mL 0-100 H (BEAKER) (test code = 700) Hand Slitter ID - [id number] K0979-34-76 04:22:48 Test Item Value Reference Range Interpretation [...] failure, acidosis, acute neurological disease, and persistent tachyarrhythmia.Hand Slitter ID - [id number] METABOLIC PGVJC6312-06-26 04:17:07 Test Item Value Reference Range Interpretation [...] not appl icable for dialysis patien ts Hand Slitter ID - SJHF30Nvproxht ID - AOCW04Fekbfhse ID - QBRU50Mywbokys ID - HPJA13Zmzxfirw ID - XOSQ61Uioxucyq ID - ACWS86Qdyqzybl ID - CPWI25Ojlhaqgm ID - SRTI22Xcspnjuu ID - OQPS89Swctlpyl ID - AEZP86Jouvbuny ID - OEGK43Widcwlts ID - JBGE56Ibqlhvrw ID - LKKR05Qqqkriqk ID - IAIO20Vliwrpeq ID - RCMP10Wakdarvw ID - QXCA11Dgsljmyl ID - NVDW54Bnvbxitm ID - FQAB00Mutokynh ID - [id number] TIME/[id number] 04:15:11 Test Item Value Reference Range Interpretation [...] for patients with mechanical heart valves.LACTIC ACID, [id number] 04:14:49 Test Item Value Reference Range Interpretation Comments LACTATE BLOOD 2.18 mmol/L See_Comment HH Specimen sligh tly VENOUS (2) (BEAKER) hemolyze d [Automated (test code = 2872) message] The system which generated this result transmit lurdes reference range : 0.50-<2.00. The reference range was not used to interpr et this result as normal/abnormal . Hand Slitter ID - IXNA62Qnphsfgq ID - ZEKD84Noydvwtq ID - HEOF37Efvpioiw ID - [id number] POCT-GLUCOSE [id number] 04:04:21 Test Item Value Reference Range Interpretation Comments POC-GLUCOSE METER 116 mg/dL 70-110 H : TESTED A T [facility] (BEAKER) (test code [facility] [address], = 1538) [facility] 77 [address]: Hand Slitter/Techni macrina ID = [id number] for Laba cTheodora CBC W/PLT COUNT & AUTO [id number] 03:57:01 Test Item Value Reference Range Interpretation [...] PERCENT (BEAKER) (test code = 2801) POC-Glucose [id number] 12:12:32 Test Item Value Reference Range Interpretation Comments POC-Glucose Meter (test 151 mg/dL 70-110 H : TE STED AT [facility] code = 1538) [address], [place] [address]: Hand Slitter/Techni macrina ID = [id number] for Brenda Whitney Lab Interpretation (test Abnormal code = 96198-1) [facility] [id number] 12:12:32 Test Item Value Reference Range Interpretation Comments POC-GLUCOSE METER 151 mg/dL 70-110 H : TESTED A T [facility] (BEAKER) (test code [address], = 1538) [facility] [address]: Hand Slitter/Techni macrina ID = [id number] for Brenda Hurd BASIC METABOLIC [id number] 08:06:34 Test Item Value Reference Range Interpretation [...] not appl icable for dialysis patien ts Hand Slitter ID - NLYLEHEPATIC FUNCTION [id number] 05:10:40 Test Item Value Reference Range Interpretation [...] code = 102 U/L 5-50 H 347) Hand Slitter ID - Dorene [id number] 05:10:40 Test Item Value Reference Range Interpretation Comments MAGNESIUM (BEAKER) (test code = 2.3 mg/dL 1.5-3.0 627) Hand Slitter ID - Dorene TPOCT-GLUCOSE [id number] 04:58:32 Test Item Value Reference Range Interpretation Comments POC-GLUCOSE METER 140 mg/dL 70-110 H : TESTED A T [facility] (BEAKER) (test code [address], = 1538) [place] [address]: Hand Slitter/Techni macrina ID = [id number] for Glenroy Estrella PROTHROMBIN TIME/[id number] 04:55:34 Test Item Value Reference Range Interpretation [...] is 2.5-3.5 for patients with mechanical heart valves.[id number] 04:55:31 Test Item Value Reference Range Interpretation [...] WBC 0-0 (BEAKER) (test code = 413) [id number] 21:05:24 Test Item Value Reference Range Interpretation Comments PARTIAL THROMBOPLASTIN 81.3 seconds 25.8-34.5 H Final Information TIME (BEAKER) (test (Auto Ou tput) code = 760) POCT-GLUCOSE [id number] 19:49:22 Test Item Value Reference Range Interpretation Comments POC-GLUCOSE METER 170 mg/dL 70-110 H : TESTED A T [facility] (BEAKER) (test code [address]ANCE [address], = 1538) [place] [address] 0: Hand Slitter/Techni macrina ID = [id number] for Glenroy Estrella POCT-GLUCOSE [id number] 16:43:38 Test Item Value Reference Range Interpretation Comments POC-GLUCOSE METER 115 mg/dL 70-110 H : [facility] (test code [address], = 1538) [place] [address] 0: Hand Slitter/Techni macrina ID = [id number] for Sydni Nunez [id number] 12:43:54 Test Item Value Reference Range Interpretation Comments PARTIAL THROMBOPLASTIN 69.0 seconds 25.8-34.5 H Final Information TIME (BEAKER) (test (Auto Ou tput) code = 760) POCT-GLUCOSE [id number] 12:07:16 Test Item Value Reference Range Interpretation Comments POC-GLUCOSE METER 97 mg/dL 70-110 : TESTED A T [facility] (BEAKER) (test code = PRATIBHA [address] DR, 1538) [place] [address] 0: Hand Slitter/Techni macrina ID = [id number] for Sydni Nunez POCT-GLUCOSE [id number] 05:17:50 Test Item Value Reference Range Interpretation Comments POC-GLUCOSE METER 150 mg/dL 70-110 H : TESTED A T [facility] (BEAKER) (test code [address]ANCE [address], = 1538) [facility] [address] 0: Hand Slitter/Techni macrina ID = [id number] for Glenroy Estrella [id number] 04:21:48 Test Item Value Reference Range Interpretation Comments PARTIAL THROMBOPLASTIN 112.8 seconds 25.8-34.5 H Carmen l Information TIME (BEAKER) (test (Auto Ou tput) code = 760) PROTHROMBIN TIME/[id number] 04:19:56 Test Item Value Reference Range Interpretation [...] is 2.5-3.5 for patients with mechanical heart valves.[id number] 04:16:16 Test Item Value Reference Range Interpretation Comments MAGNESIUM (BEAKER) (test code = 2.4 mg/dL 1.5-3.0 627) Hand Slitter ID - PURAHEPATIC FUNCTION [id number] 04:16:16 Test Item Value Reference Range Interpretation [...] (test code = 46 U/L 5-50 347) Hand Slitter ID - PURABASIC METABOLIC [id number] 04:16:15 Test Item Value Reference Range Interpretation [...] not appl icable for dialysis patien ts Hand Slitter ID - PURACBC (HEMOGRAM ONLY)2022-04-04 03:51:50 Test [...] WBC 0-0 (BEAKER) (test code = 413) [id number] 23:41:36 Test Item Value Reference Range Interpretation Comments PARTIAL THROMBOPLASTIN TIME 79.4 seconds 25.8-34.5 H (BEAKER) (test code = 760) POCT-GLUCOSE [id number] 20:50:05 Test Item Value Reference Range Interpretation Comments POC-GLUCOSE METER 191 mg/dL 70-110 H : TESTED A T [facility] (BEAKER) (test code [address], = 1538) [place] [address] 0: Hand Slitter/Techni macrina ID = [id number] for Diana man, Glenroy POCT-GLUCOSE [id number] 17:19:22 Test Item Value Reference Range Interpretation Comments POC-GLUCOSE METER 134 mg/dL 70-110 H : [facility] (test code [address]ANCE [address], = 1538) [place] [address] 0: Hand Slitter/Techni macrina ID = [id number] for Brenda Hurd [id number] 13:32:07 Test Item Value Reference Range Interpretation Comments PARTIAL THROMBOPLASTIN 78.4 seconds 25.8-34.5 H Final Information TIME (BEAKER) (test (Auto Ou tput) code = 760) POCT-GLUCOSE [id number] 11:30:42 Test Item Value Reference Range Interpretation Comments POC-GLUCOSE METER 134 mg/dL 70-110 H : [facility] (test code VANCE [address], = 1538) [place] [address] 0: Hand Slitter/Techni macrina ID = [id number] for Brenda Hurd POCT-GLUCOSE [id number] 05:52:06 Test Item Value Reference Range Interpretation Comments POC-GLUCOSE METER 150 mg/dL 70-110 H : TESTED A T [facility] (BEAKER) (test code CHASEWOO Justin EVERARDO [address]UR[address], = 1538) [place] [address] 0: Hand Slitter/Techni macrina ID = [id number] for Tori Malagon [id number] 05:04:18 Test Item Value Reference Range Interpretation Comments PARTIAL THROMBOPLASTIN 127.1 seconds 25.8-34.5 HH Carmen l Information TIME (BEAKER) (test (Auto Ou tput) code = 760) PROTHROMBIN TIME/[id number] 05:01:15 Test Item Value Reference Range Interpretation [...] is 2.5-3.5 for patients with mechanical heart valves.[id number] 04:57:33 Test Item Value Reference Range Interpretation Comments MAGNESIUM (BEAKER) (test code = 2.4 mg/dL 1.5-3.0 627) Hand Slitter ID - LORIHEPATIC FUNCTION [id number] 04:57:33 Test Item Value Reference Range Interpretation [...] (test code = 50 U/L 5-50 347) Hand Slitter ID - LORIBASIC METABOLIC [id number] 04:57:32 Test Item Value Reference Range Interpretation [...] not appl icable for dialysis patien ts Hand Slitter ID - LORICBC (HEMOGRAM ONLY)2022-04-03 04:49:54 Test [...] 0-0 (BEAKER) (test code = 413) POCT-GLUCOSE [id number] 20:39:41 Test Item Value Reference Range Interpretation Comments POC-GLUCOSE METER 155 mg/dL 70-110 H : TESTED A T [facility] (BEAKER) (test code VANCE [address], = 1538) [place] [address] 0: Hand Slitter/Techni macrina ID = [id number] for Balt ie, Hakeemopher POCT-GLUCOSE [id number] 17:39:26 Test Item Value Reference Range Interpretation Comments POC-GLUCOSE METER 120 mg/dL 70-110 H : TESTED A T [facility] (BEAKER) (test code VANCE [address], = 1538) [place] [address] 0: Hand Slitter/Techni macrina ID = [id number] for Delg ado, Kerry POCT-GLUCOSE [id number] 11:58:40 Test Item Value Reference Range Interpretation Comments POC-GLUCOSE METER 140 mg/dL 70-110 H : TESTED A T [facility] (BEAKER) (test code VANCE [address], = 1538) [place] [address] 0: Hand Slitter/Techni mcarina ID = [id number] for Delg ado, Kerry RAD, CHEST, 1 VIEW, NON [id number] 09:19:00Reason for exam:->chest painShould this be performed at the bedside?->Yes [facility] CENTERName: [facility]ARZA : 1980 Sex: MFINAL REPORT Chest AP portable erect Comparison exam: 04/01/2022 History provided: Chest pain Heart size magnified by projection. Lungs are clear and vascularity normal. Midline cathetertip at the axillary vein on the right. Signed: George Chan Verified Date/Time: 04/02/2022 09:19:59 Reading Location: [facility] Radiology Reading Room POCT-GLUCOSE [id number] 06:26:08 Test Item Value Reference Range Interpretation Comments POC-GLUCOSE METER 144 mg/dL 70-110 H : TESTED A T [facility] (BEAKER) (test code PRATIBHAOO Justin MCG[address] DR, = 1538) [facility] [address] 0: Hand Slitter/Techni macrina ID = [id number] for Balt ie, Vicente HEPATIC FUNCTION [id number] 05:57:40 Test Item Value Reference Range Interpretation [...] code = 65 U/L 5-50 H 347) Hand Slitter ID - PURABASIC METABOLIC [id number] 05:57:39 Test Item Value Reference Range Interpretation [...] not appl icable for dialysis patien ts Hand Slitter ID - [id number] 05:57:39 Test Item Value Reference Range Interpretation Comments MAGNESIUM (BEAKER) (test code = 2.3 mg/dL 1.5-3.0 627) Hand Slitter ID - [id number] 05:47:37 Test Item Value Reference Range Interpretation Comments PARTIAL THROMBOPLASTIN 80.8 seconds 25.8-34.5 H Final Information TIME (BEAKER) (test (Auto Ou tput) code = 760) PROTHROMBIN TIME/[id number] 05:46:32 Test Item Value Reference Range Interpretation [...] 0-0 (BEAKER) (test code = 413) POCT-GLUCOSE [id number] 19:16:29 Test Item Value Reference Range Interpretation Comments POC-GLUCOSE METER 164 mg/dL 70-110 H : TESTED A T [facility] (BEAKER) (test code VANCE [address], = 1538) [facility] [address] 0: Hand Slitter/Techni macrina ID = [id number] for Balt Vicente díaz POCT-GLUCOSE [id number] 18:10:19 Test Item Value Reference Range Interpretation Comments POC-GLUCOSE METER 140 mg/dL 70-110 H : TESTED A T [facility] (BEAKER) (test code VANCE [address], = 1538) [place] [address] 0: Hand Slitter/Techni macrina ID = [id number] for Delg ado, Kerry POCT-GLUCOSE [id number] 12:16:41 Test Item Value Reference Range Interpretation Comments POC-GLUCOSE METER 138 mg/dL 70-110 H : TESTED A T [facility] (BEAKER) (test code VANCE [address], = 1538) [place] [address] 0: Hand Slitter/Techni macrina ID = [id number] for Delg ado, Kerry RAD, CHEST, 1 VIEW, NON [id number] 07:47:00Reason for exam:- >PneumoniaShould this be performed at the bedside?->Yes [facility] 1980 Sex: MFINAL REPORT Chest AP portable erect History provided: Pneumonia COMPARISON STUDY: 03/30/2022 Heart size magnified by projection. Lungs are clear and vascularity normal. Midline catheteron the right with tip in the axillary vein. Signed: George Chan Verified Date/Time: 04/01/2022 07:47:04 Reading Location: [facility] Imaging Reading Room - [place] [address] [id number] 06:44:00 Test Item Value Reference Range Interpretation Comments PARTIAL THROMBOPLASTIN 66.7 seconds 25.8-34.5 H Final Information TIME (BEAKER) (test (Auto Ou tput) code = 760) POCT-GLUCOSE [id number] 05:54:58 Test Item Value Reference Range Interpretation Comments POC-GLUCOSE METER 154 mg/dL 70-110 H : TESTED A T [facility] (BEAKER) (test code VANCE [address] DR, = 1538) [place] [address] 0: Hand Slitter/Techni macrina ID = [id number] for Glenroy Estrella CBC (HEMOGRAM ONLY)2022-04-01 05:39:05 [...] (BEAKER) (test code = 413) HEPATIC FUNCTION [id number] 05:36:17 Test Item Value Reference Range Interpretation [...] code = 77 U/L 5-50 H 347) Hand Slitter ID - [id number] METABOLIC [id number] 05:36:16 Test Item Value Reference Range Interpretation [...] not appl icable for dialysis patien ts Hand Slitter ID - [id number] 05:36:16 Test Item Value Reference Range Interpretation Comments MAGNESIUM (BEAKER) (test code = 2.4 mg/dL 1.5-3.0 627) Hand Slitter ID - [id number] TIME/[id number] 05:27:15 Test Item Value Reference Range Interpretation [...] 2.5-3.5 for patients with mechanical heart valves.POCT-GLUCOSE [id number] 20:19:45 Test Item Value Reference Range Interpretation Comments POC-GLUCOSE METER 179 mg/dL 70-110 H : TESTED A T [facility] (BEAKER) (test code VANCE [address], = 1538) [facility] [address] 0: Hand Slitter/Techni macrina ID = [id number] for Glenroy Estrella BASIC METABOLIC [id number] 17:35:49 Test Item Value Reference Range Interpretation [...] not appl icable for dialysis patien ts Hand Slitter ID - BRUCEPOCT-GLUCOSE [id number] 11:28:49 Test Item Value Reference Range Interpretation Comments POC-GLUCOSE METER 140 mg/dL 70-110 H : TESTED A T [facility] (BEAKER) (test code VANCE [address], = 1538) [place] [address] 0: Hand Slitter/Techni macrina ID = [id number] for Brenda Hurd [id number] 06:35:02 Test Item Value Reference Range Interpretation Comments PARTIAL THROMBOPLASTIN 64.5 seconds 25.8-34.5 H Final Information TIME (BEAKER) (test (Auto Ou tput) code = 760) PROTHROMBIN TIME/[id number] 05:40:15 Test Item Value Reference Range Interpretation [...] 2.5-3.5 for patients with mechanical heart valves.POCT-GLUCOSE [id number] 05:38:20 Test Item Value Reference Range Interpretation Comments POC-GLUCOSE METER 136 mg/dL 70-110 H : TESTED A T [facility] (BEAKER) (test code VANCE [address] DR, = 1538) [place] [address] 0: Hand Slitter/Techni macrina ID = [id number] for Glenroy Estrella [id number] 05:35:18 Test Item Value Reference Range Interpretation Comments MAGNESIUM (BEAKER) (test code = 2.5 mg/dL 1.5-3.0 627) Hand Slitter ID - PURACOMPREHENSIVE METABOLIC [id number] 05:35:17 Test Item Value Reference Range Interpretation [...] not appl icable for dialysis patien ts Hand Slitter ID - PURACBC (HEMOGRAM ONLY)2022-03-31 05:11:10 Test [...] 0-0 (BEAKER) (test code = 413) POCT-GLUCOSE [id number] 19:25:57 Test Item Value Reference Range Interpretation Comments POC-GLUCOSE METER 128 mg/dL 70-110 H : TESTED A T [facility] (BEAKER) (test code VANCE [address], = 1538) [place] [address] 0: Hand Slitter/Techni macrina ID = [id number] for Glenroy Estrella POCT-GLUCOSE [id number] 17:09:30 Test Item Value Reference Range Interpretation Comments POC-GLUCOSE METER 122 mg/dL 70-110 H : TESTED A T [facility] (BEAKER) (test code VANCE [address] DR, = 1538) [place] [address] 0: Hand Slitter/Techni macrina ID = [id number] for Howard Jaquez MISCELLANEOUS LAB [id number] 15:50:48 Test Item Value Reference Range Interpretation Comments SCAN RESULT (test code = see scanned report [id number]) POCT-GLUCOSE [id number] 11:54:25 Test Item Value Reference Range Interpretation Comments POC-GLUCOSE METER 152 mg/dL 70-110 H : TESTED A T [facility] (MIA) (test code VANCE [address] DR, = 1538) [facility] [address] 0: Hand Slitter/Techni macrina ID = [id number] for Howard Jaquez [id number] 07:11:44 Test Item Value Reference Range Interpretation Comments PARTIAL THROMBOPLASTIN 66.2 seconds 25.8-34.5 H Final Information TIME (MIA) (test (Auto Ou tput) code = 760) RAD, CHEST, 1 VIEW, NON [id number] 06:52:00Reason for exam:- >PneumoniaShould this be performed at the bedside?->Yes [facility] 1980 Sex: MFINAL REPORT Exam: RAD, CHEST, 1 VIEW, NON DEPTDate: 03/30/2022 6:51 AM Indication:PneumoniaComparison: Chest radiograph 03/28/2022. IMPRESSION: Lines/Tubes:None Lungs and Pleura :Decreased conspicuity of the previous identified finding in the right lower lung. Lungs appear clear on thisstudy. No pleural effusions. No pneumothorax. Heart/Mediastinum:Enlarged, unchanged. Bones/Soft Tissues: No acute osseous abnormality. Upper abdomen: Unremarkable. Signed: Darleen [facility]avezconne[facility] Verified Date/Time: 03/30/2022 06:52:10 BASIC METABOLIC [id number] 06:49:16 Test Item Value Reference Range Interpretation [...] not appl icable for dialysis patien ts Hand Slitter ID - [id number] 06:49:16 Test Item Value Reference Range Interpretation Comments MAGNESIUM (BEAKER) (test code = 2.4 mg/dL 1.5-3.0 627) Hand Slitter ID - NLYLEPROTHROMBIN TIME/[id number] 06:43:10 Test Item Value Reference Range Interpretation [...] 0-0 (BEAKER) (test code = 413) POCT-GLUCOSE [id number] 06:18:33 Test Item Value Reference Range Interpretation Comments POC-GLUCOSE METER 152 mg/dL 70-110 H : TESTED A T [facility] (BEAKER) (test code VANCE [address] DR, = 1538) [place] [address] 0: Hand Slitter/Techni macrina ID = [id number] for Brittany JERONIMO POCT-GLUCOSE [id number] 21:42:09 Test Item Value Reference Range Interpretation Comments POC-GLUCOSE METER 165 mg/dL 70-110 H : TESTED A T [facility] (BEAKER) (test code VANCE [address] DR, = 1538) [place] [address] 0: Hand Slitter/Techni macrina ID = [id number] for Brittany JERONIMO POCT-GLUCOSE [id number] 17:53:23 Test Item Value Reference Range Interpretation Comments POC-GLUCOSE METER 127 mg/dL 70-110 H : TESTED A T [facility] (BEAKER) (test code VANCE Anderson [address]ER[address]UR[address], = 1538) [place] [address] 0: Hand Slitter/Techni macrina ID = [id number] for Fatmata echevarria (DivFlt)Larissa [id number] 16:26:31 Test Item Value Reference Range Interpretation Comments PARTIAL THROMBOPLASTIN 78.0 seconds 25.8-34.5 H Final Information TIME (BEAKER) (test (Auto Ou tput) code = 760) [id number] 16:11:20 Test Item Value Reference Range Interpretation Comments MAGNESIUM (BEAKER) (test code = 2.3 mg/dL 1.5-3.0 627) Hand Slitter ID - [id number] 16:11:20 Test Item Value Reference Range Interpretation Comments PHOSPHORUS (BEAKER) (test code = 5.0 mg/dL 2.5-4.5 H 604) Hand Slitter ID - BRUCEBASIC METABOLIC [id number] 16:11:19 Test Item Value Reference Range Interpretation [...] not appl icable for dialysis patien ts Hand Slitter ID - BRUCEPOCT-GLUCOSE [id number] 16:06:02 Test Item Value Reference Range Interpretation Comments POC-GLUCOSE METER 127 mg/dL 70-110 H : TESTED A T [facility] (BEAKER) (test code VANCE [address] DR, = 1538) [place] [address] 0: Hand Slitter/Techni macrina ID = [id number] for Mary Fitzgerald [id number] 06:31:09 Test Item Value Reference Range Interpretation Comments PHOSPHORUS (BEAKER) (test code = 5.2 mg/dL 2.5-4.5 H 604) Hand Slitter ID - PURACOMPREHENSIVE METABOLIC [id number] 06:31:08 Test Item Value Reference Range Interpretation [...] not appl icable for dialysis patien ts Hand Slitter ID - [id number] 06:31:08 Test Item Value Reference Range Interpretation Comments MAGNESIUM (BEAKER) (test code = 2.3 mg/dL 1.5-3.0 627) Hand Slitter ID - [id number] 06:30:45 Test Item Value Reference Range Interpretation Comments PARTIAL THROMBOPLASTIN 57.8 seconds 25.8-34.5 H Final Information TIME (BEAKER) (test (Auto Ou tput) code = 760) PROTHROMBIN TIME/[id number] 06:24:09 Test Item Value Reference Range Interpretation [...] mechanical heart valves.CBC W/PLT COUNT & AUTO [id number] 06:15:05 Test Item Value Reference Range Interpretation [...] PERCENT (BEAKER) (test code = 2801) POCT-GLUCOSE [id number] 00:22:33 Test Item Value Reference Range Interpretation Comments POC-GLUCOSE METER 139 mg/dL 70-110 H : TESTED A T [facility] (BEAKER) (test code VANCE MCG[address] DR, = 1538) [place] [address] 0: Hand Slitter/Techni macrina ID = [id number] for Alberto -Casino, Mirabelle POCT-GLUCOSE [id number] 00:22:33 Test Item Value Reference Range Interpretation Comments POC-GLUCOSE METER 142 mg/dL 70-110 H : TESTED A T [facility] (BEAKER) (test code VANCE MCG[address] DR, = 1538) [place] [address] 0: Hand Slitter/Techni macrina ID = [id number] for Alberto -Casino, Mirabelle [id number] 22:36:15 Test Item Value Reference Range Interpretation Comments PARTIAL THROMBOPLASTIN 40.7 seconds 25.8-34.5 H Final Information TIME (BEAKER) (test (Auto Ou tput) code = 760) POCT-GLUCOSE [id number] 21:40:56 Test Item Value Reference Range Interpretation Comments POC-GLUCOSE METER 160 mg/dL 70-110 H : TESTED A T [facility] (BEAKER) (test code VANCE MCG[address] DR, = 1538) [place] [address] 0: Hand Slitter/Techni macrina ID = [id number] for PadDerrick goffa [id number] 14:17:38 Test Item Value Reference Range Interpretation Comments PARTIAL THROMBOPLASTIN 43.6 seconds 25.8-34.5 H Final Information TIME (BEAKER) (test (Auto Ou tput) code = 760) RAD, CHEST, 1 VIEW, NON [id number] 07:53:00Reason for exam:- >PneumoniaShould this be performed at the bedside?->Yes [facility] 1980 Sex: MFINAL REPORT Chest AP portable Comparison exam: 03/27/2022 History provided: Pneumonia Heart size magnified by projection. Patchy coarsening of markings persists in the right lower lobe which could represent a small focus of pneumonia. Lungs otherwise clear and vascularity normal. Signed: George Chaneport Verified Date/Time: 03/28/2022 07:53:10 Reading Location: [facility] Diagnostic Imaging Reading Room - [place] [address].12 CBC W/PLT COUNT & AUTO DIFFERENTIAL 2022-03-28 [...] PERCENT (BEAKER) (test code = 2801) TROPONIN [id number] 06:11:24 Test Item Value Reference Range Interpretation [...] failure, acidosis, acute neurological disease, and persistent tachyarrhythmia.Hand Slitter ID - BRUCELIPID [id number] 06:10:42 Test Item Value Reference Range Interpretation [...] Borderline 130-159 High 160-189 Very High >=190 Hand Slitter ID - SHEBAC-REACTIVE [id number] 06:09:17 Test Item Value Reference Range Interpretation Comments C-REACTIVE PROTEIN (BEAKER) (test 1.52 mg/dL 0.00-1.00 H code = 676) Hand Slitter ID - [id number] 06:08:31 Test Item Value Reference Range Interpretation Comments PHOSPHORUS (BEAKER) (test code = 4.9 mg/dL 2.5-4.5 H 604) Hand Slitter ID - SHEBACOMPREHENSIVE METABOLIC [id number] 06:08:30 Test Item Value Reference Range Interpretation [...] not appl icable for dialysis patien ts Hand Slitter ID - [id number] 06:08:30 Test Item Value Reference Range Interpretation Comments MAGNESIUM (MIA) (test code = 2.7 mg/dL 1.5-3.0 627) Hand Slitter ID - [id number] 05:59:39 Test Item Value Reference Range Interpretation Comments PARTIAL THROMBOPLASTIN 46.2 seconds 25.8-34.5 H Final Information TIME (MIA) (test (Auto Ou tput) code = 760) Urinalysis Microscopic [id number] 00:19:59 Test Item Value Reference Range Interpretation Comments RBC, UA (test code = 5-10 See_Comment [Autom ated message] 799-7) The system [employer] generated this result transmitted ref erence range: /HPF. Th e reference range was not used to interpr et this result as normal/abnormal . WBC, UA (test code = None Seen See_Comment [Autom ated message] 80756-3) The system [employer] generated this result transmitted ref erence range: /HPF. Th e reference range was not used to interpr et this result as normal/abnormal . Uric Acid Crystals Occasional (test code = 1583) [facility] [id number] 00:19:59 Test Item Value Reference Range Interpretation Comments RBC, UA (test code = 5-10 See_Comment [Autom ated message] 799-7) The system [employer] generated this result transmitted ref erence range: /HPF. Th e reference range was not used to interpr et this result as normal/abnormal . WBC, UA (test code = None Seen See_Comment [Autom ated message] 42898-6) The system [employer] generated this result transmitted ref erence range: /HPF. Th e reference range was not used to interpr et this result as normal/abnormal . Uric Acid Crystals Occasional (test code = 1583) [facility]IS [id number] 00:19:59 Test Item Value Reference Range Interpretation Comments RBC UA-MANUAL (BEAKER) (test 5-10 /HPF code = 1659) WBC UA-MANUAL (BEAKER) (test None Seen /HPF code = 1661) URIC ACID CRYSTALS (BEAKER) Occasional (test code = 1583) Rapid drug screen, [id number] 23:45:33 Test Item Value Reference Range Interpretation Comments Barbiturate Screen Negative Negative (test code = 20818-1) Benzodiazepine Screen Negative Negative (test code = 34340-9) Cocaine (Metab.) Negative Negative Screen (test code = 3397-7) Opiate Screen (test Negative Negative code = 59704-6) Cannabinoid Screen Negative Negative (test code = 97893-5) Amph/Methamph Screen Negative Negative (test code = 09833-0) Phencyclidine Screen Negative Negative (test code = 12019-2) pH, UA (test code = 5.5 5.0-8.0 5803-2) LASHON (test code = LASHON) DRUG CUTOFF CONC.Cocaine 300 ng/mLCannabinoid 50 ng/mLBenzodiazepine 200 ng/mLBarbiturate 200 ng/mLPhencyclidine 25 ng/mLOpiate 300 ng/mLAmphetamine/ 1000 ng/mL Methamphetamine This assay provides an unconfirmed qualitative test result for the clinical management of patients in emergency situations. Chain of custody not maintained. Some qqst-tfm-cfgdrzn medications, as well as adulterants, may cause inaccurate results. Clinical correlation should be applied. A more comprehensive drug screen or confirmation of a detected drug may be performed upon request.Hand Slitter ID - Dorene Loredo Lab Interpretation Normal (test code = 36792-0) [facility], [id number] 23:45:33 Test Item Value Reference Range Interpretation Comments Barbiturate Screen Negative Negative (test code = 86916-4) Benzodiazepine Screen Negative Negative (test code = 10881-6) Cocaine (Metab.) Negative Negative Screen (test code = 3397-7) Opiate Screen (test Negative Negative code = 44964-2) Cannabinoid Screen Negative Negative (test code = 46081-5) Amph/Methamph Screen Negative Negative (test code = 77296-4) Phencyclidine Screen Negative Negative (test code = 57786-0) pH, UA (test code = 5.5 5.0-8.0 5803-2) LASHON (test code = LASHON) DRUG CUTOFF CONC.Cocaine 300 ng/mLCannabinoid 50 ng/mLBenzodiazepine 200 ng/mLBarbiturate 200 ng/mLPhencyclidine 25 ng/mLOpiate 300 ng/mLAmphetamine/ 1000 ng/mL Methamphetamine This assay provides an unconfirmed qualitative test result for the clinical management of patients in emergency situations. Chain of custody not maintained. Some xigi-fyu-hlmyjbm medications, as well as adulterants, may cause inaccurate results. Clinical correlation should be applied. A more comprehensive drug screen or confirmation of a detected drug may be performed upon request.Hand Slitter ID - Dorene T Lab Interpretation Normal (test code = 30914-5) [facility]EN, [id number] 23:45:33 Test Item Value Reference Range Interpretation [...] situations. Chain of custody not maintained. Some cykf-iml-fqmkyav medications, as well as adulterants, may cause inaccurate results. Clinical correlation should be applied. A more comprehensive drug screen or confirmation of a detected drug may be performed upon request.Hand Slitter ID - Dorene TUrinalysis with Microscopic If [id number] 23:27:20 Test Item Value Reference Range Interpretation Comments Color, UA (test code = 5778-6) Yellow Clarity, UA (test code = 5767-9) Clear Specific [place], UA (test code = 1.020 1.001-1.035 5811-5) pH, UA (test code = 5803-2) 5.5 5.0-8.0 Protein, UA (test code = 77849-9) Negative Negative Glucose, UA (test code = 365) Negative Negative Ketones, UA (test code = 2514-8) Negative Negative Bilirubin, UA (test code = 97872-0) Negative Negative Blood, UA (test code = 67944-9) Moderate Negative A Nitrite, UA (test code = 5802-4) Negative Negative Leukocytes, UA (test code = 5799-2) Negative Negative Urobilinogen, UA (test code = 0.2 41867-8) Specimen Source (test code = 2795) Lab Interpretation (test code = Abnormal 44405-8) [facility]IC IF [id number] 23:27:20 Test Item Value Reference Range Interpretation [...] 463) SOURCE(BEAKER) (test code = 2795) POCT-GLUCOSE [id number] 23:01:48 Test Item Value Reference Range Interpretation Comments POC-GLUCOSE METER 159 mg/dL 70-110 H : TESTED A T [facility] ([facility]) (test code PRATIBHAMIRANDA [address], = 1538) [place] [address]: Hand Slitter/Techni macrina ID = [id number] for Jayde Maria PLATELET [id number] 22:48:58 Test Item Value Reference Range Interpretation Comments [facility] ([facility] (test 232 K/CU MM 150-430 code = 756) TROPONIN [id number] 22:37:38 Test Item Value Reference Range Interpretation Comments TROPONIN I ([facility]) (test code = 0.02 ng/mL 0.00-0.03 397) [...] failure, acidosis, acute neurological disease, and persistent tachyarrhythmia.Hand Slitter ID - [id number] 22:32:20 Test Item Value Reference Range Interpretation Comments PARTIAL THROMBOPLASTIN 23.2 seconds 25.8-34.5 L Final Information TIME ([facility]) (test (Auto Ou tput) code = 760) TSH/FREE T4 IF [id number] 19:31:20 Test Item Value Reference Range Interpretation Comments THYROID STIMULATING HORMONE 0.420 uIU/mL 0.350-5.500 (AKER) (test code = 772) Hand Slitter ID - [id number] Echo W/Doppler(CW/PW/Color)2022-03-27 18:34:26Ejection FractionSLEH ECHO HEARTLAB MKCKESSON [facility]2D Echo W/Doppler(CW/PW/Color)2022-03-27 18:34:26Ejection FractionSLEH ECHO HEARTLAB MKCKESSON [facility] [id number] 17:13:34 Test Item Value Reference Range Interpretation Comments POC-GLUCOSE METER 172 mg/dL 70-110 H : TESTED A T [facility] (BEAKER) (test code CHASEWOO [address], = 1538) [facility] [address]: Hand Slitter/Techni macrina ID = [id number] for Gilberto Jim TROPONIN [id number] 17:05:07 Test Item Value Reference Range Interpretation [...] failure, acidosis, acute neurological disease, and persistent tachyarrhythmia.Hand Slitter ID - NOLIC-REACTIVE PROTEIN 2022-03-27 17:01:29 Test Item Value Reference Range Interpretation Comments C-REACTIVE PROTEIN (BEAKER) (test 2.44 mg/dL 0.00-1.00 H code = 676) Hand Slitter ID - NOLIHEMOGLOBIN [id number] 15:46:10 Test Item Value Reference Range Interpretation Comments HEMOGLOBIN A1C (BEAKER) (test code = 6.0 % 4.3-6.1 368) Hand Slitter ID - KEV, CHEST, 1 VIEW, NON [id number] 13:55:00Reason for exam:->Line confirmationShould this be performed at the bedside?->Yes [facility] Greg[facility] HADLEY : 1980 Sex: MFINAL REPORT RAD, CHEST, 1 VIEW, NON DEPT TECHNIQUE: Frontal view(s) of the chest. INDICATION: Line confirmation COMPARISON: None FINDINGS/IMPRESSION: Lines/Tubes: None Lungs/pleura: Small focal opacity in the right lower lobe, please follow-up to resolution. No pleural effusion. No pneumothorax. Heart and Mediastinum: The cardiac silhouette is enlarged. Soft Tissues and Bones: Unremar kable. Signed: Alejandro Landa Verified Date/Time: 03/27/2022 13:55:48 Reading Location: [facility] Diagnostic Imaging Reading Room - [facility] 1.310.12 B-TYPE NATRIURETIC FACTOR (BNP)2022-03-27 12:54:48 Test Item Value Reference Range Interpretation Comments B-TYPE NATRIURETIC PEPTIDE 1728 pg/mL 0-100 H (BEAKER) (test code = 700) Hand Slitter ID - OLIVIER BLACTIC ACID, [id number] 12:43:42 Test Item Value Reference Range Interpretation Comments LACTATE BLOOD VENOUS (2) (BEAKER) 1.83 mmol/L 0.50-2.00 (test code = 2872) Hand Slitter ID - OLIVIER BTROPONIN [id number] 12:35:27 Test Item Value Reference Range Interpretation [...] failure, acidosis, acute neurological disease, and persistent tachyarrhythmia.Hand Slitter ID - OLIVIER BCOMPREHENSIVE METABOLIC [id number] 12:34:11 Test Item Value Reference Range Interpretation [...] not appl icable for dialysis patien ts Hand Slitter ID - GEMMA [id number] 12:33:02 Test Item Value Reference Range Interpretation Comments MAGNESIUM (BEAKER) (test code = 2.4 mg/dL 1.5-3.0 627) Hand Slitter ID - GEMMA [id number] 12:33:02 Test Item Value Reference Range Interpretation Comments PHOSPHORUS (BEAKER) (test code = 3.9 mg/dL 2.5-4.5 604) Hand Slitter ID - OLIVIER BARRETTlood gas, [id number] 12:21:52 Test Item Value Reference Range Interpretation [...] 8310-5) Lab Interpretation Abnormal (test code = 86522-3) [facility] HospitalBlood gas, [id number] 12:21:52 Test Item Value Reference Range Interpretation [...] 8310-5) Lab Interpretation Abnormal (test code = 20085-5) [facility] HospitalBLOOD GAS, [id number] 12:21:52 Test Item Value Reference Range Interpretation [...] = 1818) CBC W/PLT COUNT & AUTO [id number] 12:19:24 Test Item Value Reference Range Interpretation [...] 0.00-0.00 H PERCENT (BEAKER) (test code = 7310)
[2022-12-16 16:08] LABS: SARS-CoV-2 Antigen Rapid Res Negative (Negative)
--- NOTE | 2022-12-16 16:25 | RAD REPORT ---
EXAM DESCRIPTION: RADChest Single View12/16/2022 3:51 pm CLINICAL HISTORY: COUGH COMPARISON: Chest Single View dated 04/30/2022; Chest Single View dated 04/15/2022; Chest Single View d ated 03/26/2022; Abdomen 1 View (KUB) dated 03/14/2022 TECHNIQUE: Portable AP view of the chest. FINDINGS: The lungs are clear. No pneumothorax or effusion. The cardiomediastinal contours are unre markable. Sequelae of median sternotomy and surgical clips in the left axillary region. IMPRESSION: No acute cardiopulmonary process.
[2022-12-16 17:06] LABS: Absolute Lymphocytes (CBC) 0.5 K/uL (0.7-4.9); Hematocrit 38.3 % (39.6-49.0); MCV 85.8 fL (80-100); MPV 6.2 fL (7.6-11.3); Platelets 313 thou/uL (152-406); RBC Red Blood Cell Count 4.47 M/uL (4.33-5.43)
[2022-12-16 17:14] LABS: Albumin 3.9 g/dL (3.4-5.0); Bilirubin Total 0.4 mg/dL (0.2-1.0); Potassium 4.2 mEq/L (3.5-5.1); Protein, Total 8.1 g/dL (6.4-8.2)
--- NOTE | 2022-12-16 17:51 | ER ---
Nurse's Notes [facility] Name: Justin Garza Age: 42 yrs Sex: Male : 1980 Arrival Date: 12/16/2022 Time: 15:13 Bed 9 Private MD: Diagnosis: Viral infection, unspecified Presentation: 12/16 15:36 Chief complaint: Patient states: cough, cold symptoms since 12-07-22 , recent heart iw transplant in June , was sent by heart doctor, also having increased SOB, breaking out in sweats. Coronavirus screen: Client presents with at least one sign or symptom that may indicate coronavirus-19. Ebola Screen: Patient negative for fever greater than or equal to 101.5 degrees Fahrenheit, and additional compatible Ebola Virus Disease symptoms Patient denies exposure to infectious person. Patient denies travel to an Ebola-affected area in the 21 days before illness onset. No symptoms or risks identified at this time. Initial Sepsis Screen: Does the patient meet any 2 criteria? HR > 90 bpm. Does the patient have a suspected source of infection? No. Patient's initial sepsis screen is negative. Risk Assessment: Do you want to hurt yourself or someone else? Patient reports no desire to harm self or others. Onset of symptoms was December 07, 2022. 15:36 Method Of Arrival: Ambulatory iw 15:36 Acuity: ANNIE 3 iw Historical: - Allergies: 15:38 Amoxicillin; iw 15:38 Bees; iw 15:38 amoxicillin trihydrate; iw 15:38 Epinephrine; iw 15:38 Iodine; iw 15:38 Lisinopril; iw 15:38 Demerol; iw 15:38 loratadine; iw 15:38 Nuts; iw 15:38 Pseudoephedrine; iw 15:38 SEAFOOD; iw 15:38 Strawberries; iw - PMHx: 15:38 Borderline Diabetes; kidney problems; cardiomyopathy; Asthma; GERD; CHF; Irregular iw heart rate; Seizures; cardiomyopathy; SJS; - PSHx: 15:38 heart transplant (SJS); iw Screenin:58 [facility] ED Fall Risk Assessment (Adult) History of falling in the last 3 months, kc6 including since admission No falls in past 3 months (0 pts) Confusion or Disorientation No (0 pts) Intoxicated or Sedated No (0 pts) Impaired Gait No (0 pts) Mobility Assist Device Used No (0 pt) Altered Elimination No (0 pt) Score/Fall Risk Level 0 - 2 = Low Risk. Abuse screen: Denies threats or abuse. Denies injuries from another. Nutritional screening: No deficits noted. Tuberculosis screening: No symptoms or risk factors identified. Assessment: 16:58 General: Appears in no apparent distress. comfortable, Behavior is calm, cooperative, kc6 appropriate for age. Pain: Denies pain. Neuro: Level of Consciousness is awake, alert, obeys commands, Oriented to person, place, time, situation, Appropriate for age. Cardiovascular: Capillary refill < 3 seconds. Respiratory: Reports shortness of breath cough that is Airway is patent Trachea midline Respiratory effort is even, unlabored, Respiratory pattern is regular, symmetrical. GI: No signs and/or symptoms were reported involving the gastrointestinal system. : No signs and/or symptoms were reported regarding the genitourinary system. EENT: Reports difficulty swallowing nasal congestion. Derm: No signs and/or symptoms reported regarding the dermatologic system. Skin is intact, is healthy with good turgor, Skin is pink, warm \T\ dry. Musculoskeletal: No signs and/or symptoms reported regarding the musculoskeletal system. Circulation, motion, and sensation intact. Capillary refill < 3 seconds, Range of motion: intact in all extremities. 17:50 Reassessment: Patient appears in no apparent distress at this time. No changes from kc6 previously documented assessment. Patient and/or family updated on plan of care and expected duration. Pain level reassessed. Patient is alert, oriented x 3, equal unlabored respirations, skin warm/dry/pink. Vital Signs: 15:36 BP 125 / 94; Pulse 105; Resp 18; Temp 97.6; Pulse Ox 99% on R/A; Weight 88.9 kg; Height iw 5 ft. 6 in. ; 15:36 Body Mass Index 31.63 (88.90 kg, 167.64 cm) iw ED Course: 15:15 Patient arrived in ED. im 15:16 Chun De La Paz MD is Attending Physician. ec2 15:38 Triage completed. iw 15:40 Arm band placed on. iw 15:52 CXR XRAY In Process Unspecified. EDMS 16:44 Ilsa Elaine RN is Primary Nurse. kc6 16:56 Inserted saline lock: 20 gauge in right antecubital area, using aseptic technique. kc6 Blood collected. Patient maintains SpO2 saturation greater than 95% on room air. 16:58 Patient has correct armband on for positive identification. Bed in low position. Call kc6 light in reach. Side rails up X 1. Client placed on continuous cardiac and pulse oximetry monitoring. NIBP monitoring applied. 18:04 No provider procedures requiring assistance completed. IV discontinued, intact, kc6 bleeding controlled, No redness/swelling at site. Pressure dressing applied. Administered Medications: No medications were administered Medication: 18:04 VIS not applicable for this client. kc6 Outcome: 17:50 Discharge ordered by . ec2 18:04 Discharged to home ambulatory, kc6 18:04 Condition: good 18:04 Discharge instructions given to patient, Instructed on discharge instructions, follow up and referral plans. Demonstrated understanding of instructions, follow-up care, 18:04 Patient left the ED. kc6 Signatures: Dispatcher [employer] Ariana Loomis RN RN iw Campbell, Kaitlyn, RN RN kc6 Nai Alvarez Edwin, MD MD ec2 Corrections: (The following items were deleted from the chart) 15:40 15:36 Pulse 105bpm; Resp 18bpm; Pulse Ox 99% RA; Temp 97.6F; iw mary beth
--- NOTE | 2022-12-16 17:51 | EDPHYS ---
Physician Documentation [facility] Name: Justin Garza Age: 42 yrs Sex: Male : 1980 Arrival Date: 12/16/2022 Time: 15:13 Bed 9 Private MD: ED Physician Chun De La Paz HPI: 12/16 15:38 This 42 yrs old Black Male presents to ER via Unassigned with complaints of Wants ec2 COVID,Flu,Strep test per heart doctor, Flu Symptoms. 15:38 Patient arrives today due to concern for URI symptoms symptoms. Patient reports he has ec2 been having a cough and cold symptoms as well as congestion. Patient reports some occasional nausea as well. Denies any issues with p.o. intake, denies any diarrhea symptoms. Does report a significant medical history of previous heart transplant in June 2022. Patient states he is on immunosuppression for his heart transplant, and is on mycophenolate, tacrolimus as well as prednisone.. Historical: - Allergies: 15:38 Amoxicillin; iw 15:38 Bees; iw 15:38 amoxicillin trihydrate; iw 15:38 Epinephrine; iw 15:38 Iodine; iw 15:38 Lisinopril; iw 15:38 Demerol; iw 15:38 loratadine; iw 15:38 Nuts; iw 15:38 Pseudoephedrine; iw 15:38 SEAFOOD; iw 15:38 Strawberries; iw - PMHx: 15:38 Borderline Diabetes; kidney problems; cardiomyopathy; Asthma; GERD; CHF; Irregular iw heart rate; Seizures; cardiomyopathy; SJS; - PSHx: 15:38 heart transplant (SJS); iw ROS: 15:38 Constitutional: as per hpi ec2 Exam: 15:38 Constitutional: GEN: NAD Head: atraumatic Eyes: EOMI Ears: External ears are ec2 normal. CV: regular rate LUNGS: no respiratory distress, no wheezes, rales, or rhonchi ABD: non-distended SKIN: no evidence of rashes MSK: no evidence of trauma NEURO: moves all extremities equally Vital Signs: 15:36 BP 125 / 94; Pulse 105; Resp 18; Temp 97.6; Pulse Ox 99% on R/A; Weight 88.9 kg; Height iw 5 ft. 6 in. ; 15:36 Body Mass Index 31.63 (88.90 kg, 167.64 cm) iw MDM: 15:08 Patient medically screened. ec2 15:38 ED course: Patient arrives today due to concern for URI signs and symptoms. Examination ec2 remarkable for well-appearing nontoxic individual is otherwise in no acute distress he does have slight tachycardia with a heart rate of 105. We will obtain lab work, viral swabs as well as strep swab and reassess the patient. Currently considering viral process, strep pharyngitis, pneumonia.. 16:34 ED course: Patient is negative for flu and COVID and RSV as well as strep. Chest x-ray ec2 shows No acute intrathoracic process. . 17:26 ED course: CBC remarkable for slight leukopenia with a WBC of 2.5 which I ultimately ec2 suspect this is from the patient's multiple immunosuppressive agents. Metabolic profile shows appropriate electrolytes and renal function. Ultimately suspect a viral process causing the patient's symptoms presentation today. I have a low suspicion for heart transplant rejection, no evidence of anasarca, no evidence of pulmonary edema, no evidence of dysrhythmia or blood pressure abnormalities. I attempted to reach his performance improvement coordinator Zee, however was unable to reach her. Attempting to reach out via transfer center. . 17:50 Data reviewed: vital signs. ED course: I discussed the case with the on-call transplant ec2 coordinator who agreed with the plan of care to follow-up outpatient, we will schedule an outpatient assessment. I discussed the results and the plan with the patient and he is agreeable. Patient discharged home, return precautions given.. 12/16 15:17 Order name: SARS RAPID; Complete Time: 16:34 ec2 12/16 15:17 Order name: Influenza Screen (a \T\ B); Complete Time: 16:34 ec2 12/16 15:17 Order name: RSV; Complete Time: 16:34 ec2 12/16 15:17 Order name: Strep; Complete Time: 16:34 ec2 12/16 15:38 Order name: CBC with Diff ec2 12/16 15:38 Order name: CMP; Complete Time: 17:26 ec2 12/16 16:13 Order name: Throat Culture EDMS 12/16 15:40 Order name: CXR XRAY; Complete Time: 16:34 ec2 Administered Medications: No medications were administered Disposition Summary: 12/16/22 17:50 Discharge Ordered Condition: Stable ec2 Diagnosis - Viral infection, unspecified ec2 Discharge Instructions: - Discharge Summary Sheet ec2 - Viral Illness, Adult ec2 Forms: - Medication Reconciliation Form ec2 - Thank You Letter ec2 - Antibiotic Education ec2 - Prescription Opioid Use ec2 - Patient Portal Instructions ec2 - Leadership Thank You Letter ec2 Signatures: Dispatcher [employer] Ariana Loomis RN RN iw Corral, Edwin, MD MD ec2 Corrections: (The following items were deleted from the chart) 16:54 16:54 Patient medically screened. ec2 ec2 17:34 17:26 ED course: CBC remarkable for slight leukopenia with a WBC of 2.5. Metabolic ec2 profile shows appropriate electrolytes and renal function. . ec2 17:42 17:26 ED course: CBC remarkable for slight leukopenia with a WBC of 2.5 which I ec2 ultimately suspect this is from the patient's multiple immunosuppressive agents. Metabolic profile shows appropriate electrolytes and renal function. Ultimately suspect a viral process causing the patient's symptoms presentation today. I have a low suspicion for heart transplant rejection, no evidence of anasarca, no evidence of pulmonary edema, no evidence of dysrhythmia or blood pressure abnormalities. I discussed the results with the patient and instructed him on importance of following up with his transplant team. Patient did not have any contact information for his performance improvement coordinator as I was unable to personally discuss that with them. . ec2
[2022-12-16 18:30] VITALS: BP 125/94; TEMP 97.6; O2SAT 99
[2022-12-16 22:44] LABS: Blood Morphology Comment NOT SEEN (NOT SEEN); Platelet Estimate ADEQ; White Blood Cell Scan OK (OK)
== END 2022-12-16 18:04 | disposition home or self-care (01) ==
LOC: ER 15:13
DX: B34.9 Viral infection, unspecified (principal); Z11.52 Encounter for screening for COVID-19; I50.9 Heart failure, unspecified; Z94.1 Heart transplant status; Z88.1 Allergy status to other antibiotic agents; Z88.5 Allergy status to narcotic agent; Z88.8 Allergy status to other drugs, medicaments and biological substances; Z91.013 Allergy to seafood; Z91.018 Allergy to other foods; Z91.030 Bee allergy status
CPT/HCPCS: 36415; 71045; 80053; 85025; 87070; 87081; 87804; 87807; 87811; 99284

== ENCOUNTER 2023-05-28 06:11 | Day surgery (SDC) | payer BC ==
[2023-05-28] MEDS ORDERED: propofoL 200 MG/20 ML VIAL IV ONE (07:00)
[2023-05-28] MEDS ORDERED: LIDOCAINE 1% MPF 5 ML VIAL ONE (07:00)
[2023-05-28] MEDS: Ringers Lactate 1,000 ML IV ONE (07:10)
[2023-05-28] MEDS: METHYLPREDNISOLONE 125 MG INJ ONE (07:20)
[2023-05-28 08:05] VITALS: TEMP 97.3
[2023-05-28 12:59] VITALS: BP 101/63; O2SAT 100
== END 2023-05-28 09:10 | disposition home or self-care (01) ==
LOC: OR 06:11
PROVIDERS: ATTEND Internal Medicine Gastroenterology
PROC: 0DBG8ZX Excision of Left Large Intestine, Via Natural or Artificial Opening Endoscopic, Diagnostic (ICD-10-PCS; 2023-05-28)
PROC: 0DBP8ZX Excision of Rectum, Via Natural or Artificial Opening Endoscopic, Diagnostic (ICD-10-PCS; 2023-05-28)
PROC: 0DBF8ZX Excision of Right Large Intestine, Via Natural or Artificial Opening Endoscopic, Diagnostic (ICD-10-PCS; 2023-05-28)
PROC: 0DB68ZX Excision of Stomach, Via Natural or Artificial Opening Endoscopic, Diagnostic (ICD-10-PCS; principal; 2023-05-28 07:30)
PROC: 0DB88ZX Excision of Small Intestine, Via Natural or Artificial Opening Endoscopic, Diagnostic (ICD-10-PCS; 2023-05-28 07:30)
DX: R10.32 Left lower quadrant pain (principal); R10.12 Left upper quadrant pain; R14.0 Abdominal distension (gaseous); R11.2 Nausea with vomiting, unspecified; K59.1 Functional diarrhea; K30 Functional dyspepsia; R68.81 Early satiety; K44.9 Diaphragmatic hernia without obstruction or gangrene; K29.60 Other gastritis without bleeding; K29.80 Duodenitis without bleeding; K26.3 Acute duodenal ulcer without hemorrhage or perforation; K64.8 Other hemorrhoids; K29.50 Unspecified chronic gastritis without bleeding; R63.0 Anorexia
CPT/HCPCS: 93005; 88312; 88305; 43239; 45380; J2704; J2001; J2930; J7120

== ENCOUNTER 2023-09-17 15:42 | Emergency (ER) | payer BC ==
[2023-09-17] MEDS ORDERED: NA CHLORIDE 0.9% 1,000 ML ONE (16:43)
[2023-09-17 17:12] LABS: Absolute Basophils 0.1 K/uL (0-0.5); Absolute Eosinophils 0.1 K/uL (0-0.5); Absolute Lymphocytes (CBC) 1.3 K/uL (0.7-4.9); Absolute Monocytes 0.7 K/uL (0.1-1.3); Absolute Neutrophil 5.1 K/uL (1.8-8.0); Basophils % 0.7 % (0-1.3); Eosinophils % 0.9 % (0-4.4); Hematocrit 39.6 % (39.6-49.0); Hemoglobin 12.8 g/dL (13.6-17.9); Lymphocytes % 17.9 % (15.3-44.8); MCHC 32.3 g/dL (32.0-36.0); MCV 83.3 fL (80-100); MPV 6.5 fL (7.6-11.3); Monocytes % 10.1 % (3.3-12.3); Neutrophils % 70.4 % (41.7-73.7); Nucleated Red Blood Cells % 0.2 % (0-0); Platelets 340 thou/uL (152-406); RBC Red Blood Cell Count 4.75 M/uL (4.33-5.43); Red Cell Distribution Width 14.2 % (12.1-15.2)
--- NOTE | 2023-09-17 17:18 | RAD REPORT ---
EXAM DESCRIPTION: RAD - Chest Single View - 09/17/2023 5:07 pm CLINICAL HISTORY: DYSPNEA COMPARISON: Chest Single View dated 12/16/2022; Chest Single View dated 04/30/2022; Chest Single View dated 04/15/2022; Chest Single View dated 03/26/2022 FINDINGS: Lines: None. Lungs: New right upper lobe nodular opacity. No acute process identified. Pleural: No significant pleural effusions or pneumothorax. Cardiac: The heart size is within normal limits. Mediastinum: Within normal limits. Bones: No acute fractures. Sternotomy . Other: None IMPRESSION: No acute cardiopulmonary disease. New nonspecific right upper lobe nodular opacity. Cons ider short-term follow-up chest radiograph to ensure resolution. Alternatively, could consider furthe r evaluation with chest CT.
[2023-09-17 17:22] LABS: PT Prothrombin Time 12.5 SECONDS (9.4-12.5); Protime INR 1.12
[2023-09-17 17:28] LABS: SARS-CoV-2 Antigen CONTROL BLUE LINE VIS/BG OK; SARS-CoV-2 Antigen Rapid Res Negative (Negative)
--- NOTE | 2023-09-17 17:29 | ER ---
Nurse's Notes [facility] Name: Justin Garza Age: 42 yrs Sex: Male : 1980 Arrival Date: 09/17/2023 Time: 15:42 Bed 3 Private MD: Diagnosis: Chest pain, unspecified;Dyspnea;Heart transplant status Presentation: 09/16 15:55 Chief complaint: patient started having chest tightness Friday night 09/15/2023. patient ap3 reports having a heart transplant june 2022 at [facility]. Coronavirus screen: At this time, the client does not indicate any symptoms associated with coronavirus-19. Ebola Screen: No symptoms or risks identified at this time. Initial Sepsis Screen: Does the patient meet any 2 criteria? HR > 90 bpm. Does the patient have a suspected source of infection? No. Patient's initial sepsis screen is negative. Risk Assessment: Do you want to hurt yourself or someone else? Patient reports no desire to harm self or others. Onset of symptoms was September 15, 2023. 15:55 Method Of Arrival: Wheelchair ap3 15:55 Acuity: ANNIE 2 ap3 Triage Assessment: 15:58 General: Appears comfortable, Behavior is calm, cooperative, appropriate for age, ap3 Reports fatigue for. Pain: Complains of pain in chest Pain currently is 6 out of 10 on a pain scale. Quality of pain is described as tightness. Neuro: Level of Consciousness is awake, alert, obeys commands, Oriented to person, place, time, situation, Appropriate for age. Cardiovascular: Patient's skin is warm and dry. Respiratory: Airway is patent Respiratory effort is even, unlabored, Respiratory pattern is regular, symmetrical. Historical: - Allergies: 15:57 Amoxicillin; ap3 15:57 amoxicillin trihydrate; ap3 15:57 Bees; ap3 15:57 Demerol; ap3 15:57 Epinephrine; ap3 15:57 Iodine; ap3 15:57 Lisinopril; ap3 15:57 loratadine; ap3 15:57 Nuts; ap3 15:57 Pseudoephedrine; ap3 15:57 SEAFOOD; ap3 15:57 Strawberries; ap3 - PMHx: 15:57 Asthma; Borderline Diabetes; cardiomyopathy; cardiomyopathy; CHF; GERD; Irregular heart ap3 rate; kidney problems; Seizures; SJS; - PSHx: 15:57 Heart transplant; ap3 - Immunization history:: Client reports receiving the 2nd dose of the Covid vaccine. - Infectious Disease History:: Denies. - Social history:: Smoking status: Patient denies any tobacco usage or history of. - Family history:: not pertinent. Screenin:59 Abuse screen: Denies threats or abuse. Nutritional screening: No deficits noted. ap3 Tuberculosis screening: No symptoms or risk factors identified. 22:52 [facility] ED Fall Risk Assessment (Adult) History of falling in the last 3 months, cp4 including since admission No falls in past 3 months (0 pts) Confusion or Disorientation No (0 pts) Intoxicated or Sedated No (0 pts) Impaired Gait No (0 pts) Mobility Assist Device Used No (0 pt) Altered Elimination No (0 pt) Score/Fall Risk Level 0 - 2 = Low Risk Oriented to surroundings, Maintained a safe environment, Assessed \T\ reinforced patient's understanding of fall precautions, Hourly rounding (assess needs \T\ fall precautionary measures) done. Assessment: 17:05 Also complains of shortness of breath. General: Appears uncomfortable, Behavior is ld1 calm, cooperative, Smells of. Pain: Denies pain. Pain does not radiate. Pain: Pain began 2-3 days ago. 18:30 General: Appears in no apparent distress. comfortable, well groomed, well developed, kc6 Behavior is calm, cooperative, appropriate for age. Pain: Complains of pain in chest Pain does not radiate. Pain began 2-3 days ago. Is continuous. Neuro: Level of Consciousness is awake, alert, obeys commands, Oriented to person, place, time, situation, Appropriate for age. Cardiovascular: Reports chest pain, Denies shortness of breath, Heart tones S1 S2 present Capillary refill < 3 seconds Rhythm is sinus rhythm. Respiratory: Airway is patent Trachea midline Respiratory effort is even, unlabored, Respiratory pattern is regular, symmetrical. GI: No signs and/or symptoms were reported involving the gastrointestinal system. : No signs and/or symptoms were reported regarding the genitourinary system. EENT: No signs and/or symptoms were reported regarding the EENT system. Derm: No signs and/or symptoms reported regarding the dermatologic system. Skin is intact, is healthy with good turgor, Skin is pink, warm \T\ dry. Musculoskeletal: No signs and/or symptoms reported regarding the musculoskeletal system. Circulation, motion, and sensation intact. Capillary refill < 3 seconds, Range of motion: intact in all extremities. 20:46 General: Appears in no apparent distress. Behavior is calm, cooperative. Pain: kd3 Complains of pain in chest. Neuro: Level of Consciousness is awake, alert, obeys commands, Oriented to person, place, time, situation, Appropriate for age. Cardiovascular: Reports chest pain, Heart tones S1 S2 present Patient's skin is warm and dry. Respiratory: Airway is patent Trachea midline Respiratory effort is even, unlabored, Respiratory pattern is regular, symmetrical. 20:47 General: Attempted to call report, busy tone. . kd3 21:01 General: Attempted again to call report. . kd3 21:12 General: Attempted to call transfer center. No answer. . kd3 Vital Signs: 15:55 BP 121 / 81; Pulse 104; Resp 17; Temp 97.8; Pulse Ox 98% on R/A; Weight 103.42 kg; ap3 Height 5 ft. 6 in. ; Pain 6/10; 17:07 BP 104 / 83; Pulse 102; Resp 18; Pulse Ox 100% on NC; Weight 103.42 kg; Height 5 ft. 6 ld1 in. ; 18:31 BP 129 / 89; Pulse 100; Resp 20 S; Pulse Ox 100% on 2 lpm NC; kc6 21:12 BP 133 / 87; Pulse 96; Resp 16; Pulse Ox 100% on R/A; kd3 22:51 BP 111 / 77; Pulse 92; Resp 18; Temp 97.8; Pulse Ox 100% ; cp4 17:07 Body Mass Index 36.80 (103.42 kg, 167.64 cm) ld1 15:55 Pain Scale: Adult ap3 Vitals: 17:07 Cardiac Rhythm Assessment Sinus tach. ld1 Lauren Coma Score: 17:07 Eye Response: spontaneous(4). Motor Response: obeys commands(6). Verbal Response: ld1 oriented(5). Total: 15. ED Course: 15:46 Patient arrived in ED. mg5 15:57 Triage completed. ap3 15:59 Arm band placed on left wrist. ap3 15:59 Patient maintains SpO2 saturation greater than 95% on room air. ap3 16:00 Patient has correct armband on for positive identification. Placed in gown. Bed in low kc6 position. Call light in reach. Side rails up X2. Adult w/ patient. telemetry monitor on. Pulse ox on. NIBP on. Door closed. Noise minimized. Lights dimmed. Warm blanket given. Pillow given. 16:07 Jordon Bermudez MD is Attending Physician. [facility] 17:08 XRAY Chest (1 view) In Process Unspecified. EDMS 17:09 Flu Sent. ar6 17:09 SARS RAPID Sent. ar6 17:09 Lactate w/ 2H reflex if indic. Sent. ar6 17:09 Blood Culture Adult (2) Sent. ar6 17:10 LFT's Sent. ar6 17:10 CBC with Diff Sent. ar6 17:10 Basic Metabolic Panel Sent. ar6 17:10 Lipase Sent. ar6 17:10 Magnesium Sent. ar6 17:10 NT PRO-BNP Sent. ar6 17:10 PT-INR Sent. ar6 17:10 Troponin HS Sent. ar6 17:19 initiated transfer to [facility]. bd 19:00 Report given to TAMMIE Win \T\ Staci Lamb RN. kc6 20:39 Viviana Hernandez, TAMMIE is Primary Nurse. kd3 22:52 Provided Education on: transfer. cp4 22:52 No provider procedures requiring assistance completed. Patient transferred, IV remains cp4 in place. Administered Medications: 16:45 Drug: NS 0.9% IV 1000 ml IV at 75 ml/hr continuous Route: IV; Rate: 75 ml/hr; Site: [facility] right forearm; 18:32 Follow up: Response: No adverse reaction; IV Status: Infusion continued upon transfer; [facility] IV Intake: 1000ml 18:29 Drug: Aspirin PO Chewable Tablet 162 mg PO once Route: PO; kc6 19:00 Follow up: Response: No adverse reaction [facility] Medication: 22:51 VIS not applicable for this client. cp4 Intake: 18:32 IV: 1000ml; Total: 1000ml. kc Outcome: 17:28 ER care complete, transfer ordered by . [facility] 22:52 Transferred by ground EMS to other acute care facility: [facility]. Transfer form cp4 completed. X-rays sent w/ patient. 22:52 Condition: stable 22:52 Instructed on the need for transfer, 22:54 Patient left the ED. cp4 Signatures: Dispatcher [employer] EDMS June Dupont Corey, MD MD cha Prokisch, Amanda RN RN ap3 Rita Quinn RN RN ld1 Viviana Hernandez RN RN kd3 Ilsa Elaine RN RN 6 Lorena Peraza 5 Roya Lamb cp4 Lucia De Anda RN RN ar6 Corrections: (The following items were deleted from the chart) 16:37 16:36 Inserted saline lock: 20 gauge in right upper arm, using aseptic technique. Blood ld1 collected. Flushed with 10 mL NS ld1 16:37 16:36 Inserted saline lock: 22 gauge in left antecubital area, using aseptic technique. ld1 Blood collected. Flushed with 10 mL NS ld1
--- NOTE | 2023-09-17 17:29 | EDPHYS ---
Physician Documentation [facility] Name: uJstin Garza Age: 42 yrs Sex: Male : 1980 Arrival Date: 09/17/2023 Time: 15:42 Bed 3 Private MD: ED Physician Jordon Bermudez HPI: 09/16 17:24 This 42 yrs old Black Male presents to ER via Wheelchair with complaints of Chest Pain alvarez - Heart Transplant last year. 17:24 The patient or guardian reports chest pain that is located primarily in the substernal alvaerz area, anterior chest wall. Onset: 2 day(s) ago. The pain does not radiate. Associated signs and symptoms: Pertinent positives: lightheadedness, shortness of breath. The chest pain is described as a pressure, squeezing. Duration: The patient or guardian reports multiple episodes, that are intermittent. Severity of pain: At its worst the pain was mild moderate in the emergency department the pain is unchanged. The patient has experienced similar episodes in the past, several times. Historical: - Allergies: 15:57 Amoxicillin; ap3 15:57 amoxicillin trihydrate; ap3 15:57 Bees; ap3 15:57 Demerol; ap3 15:57 Epinephrine; ap3 15:57 Iodine; ap3 15:57 Lisinopril; ap3 15:57 loratadine; ap3 15:57 Nuts; ap3 15:57 Pseudoephedrine; ap3 15:57 SEAFOOD; ap3 15:57 Strawberries; ap3 - PMHx: 15:57 Asthma; Borderline Diabetes; cardiomyopathy; cardiomyopathy; CHF; GERD; Irregular heart ap3 rate; kidney problems; Seizures; SJS; - PSHx: 15:57 Heart transplant; ap3 - Immunization history:: Client reports receiving the 2nd dose of the Covid vaccine. - Infectious Disease History:: Denies. - Social history:: Smoking status: Patient denies any tobacco usage or history of. - Family history:: not pertinent. ROS: 17:24 Constitutional: Negative for fever, chills, and weight loss, Eyes: Negative for injury, alvarez pain, redness, and discharge, ENT: Negative for injury, pain, and discharge, Neck: Negative for injury, pain, and swelling, Abdomen/GI: Negative for abdominal pain, nausea, vomiting, diarrhea, and constipation, Back: Negative for injury and pain, : Negative for injury, bleeding, discharge, and swelling, MS/Extremity: Negative for injury and deformity, Skin: Negative for injury, rash, and discoloration, Neuro: Negative for headache, weakness, numbness, tingling, and seizure, Psych: Negative for depression, anxiety, suicide ideation, homicidal ideation, and hallucinations, Allergy/Immunology: Negative for hives, rash, and allergies, Endocrine: Negative for neck swelling, polydipsia, polyuria, polyphagia, and marked weight changes, Hematologic/Lymphatic: Negative for swollen nodes, abnormal bleeding, and unusual bruising, 17:24 Cardiovascular: Positive for chest pain, of the chest, palpitations, 17:24 Respiratory: Positive for shortness of breath, at rest. Exam: 17:24 Constitutional: This is a well developed, well nourished patient who is awake, alert, alvarez and in no acute distress. Head/Face: Normocephalic, atraumatic. Eyes: Pupils equal round and reactive to light, extra-ocular motions intact. Lids and lashes normal. Conjunctiva and sclera are non-icteric and not injected. Cornea within normal limits. Periorbital areas with no swelling, redness, or edema. ENT: Nares patent. No nasal discharge, no septal abnormalities noted. Tympanic membranes are normal and external auditory canals are clear. Oropharynx with no redness, swelling, or masses, exudates, or evidence of obstruction, uvula midline. Mucous membranes moist. Neck: Trachea midline, no thyromegaly or masses palpated, and no cervical lymphadenopathy. Supple, full range of motion without nuchal rigidity, or vertebral point tenderness. No Meningismus. Chest/axilla: Normal chest wall appearance and motion. Nontender with no deformity. No lesions are appreciated. Respiratory: Lungs have equal breath sounds bilaterally, clear to auscultation and percussion. No rales, rhonchi or wheezes noted. No increased work of breathing, no retractions or nasal flaring. Abdomen/GI: Soft, non-tender, with normal bowel sounds. No distension or tympany. No guarding or rebound. No evidence of tenderness throughout. Back: No spinal tenderness. No costovertebral tenderness. Full range of motion. Male : Normal genitalia with no discharge or lesions. Skin: Warm, dry with normal turgor. Normal color with no rashes, no lesions, and no evidence of cellulitis. MS/ Extremity: Pulses equal, no cyanosis. Neurovascular intact. Full, normal range of motion. Neuro: Awake and alert, GCS 15, oriented to person, place, time, and situation. Cranial nerves II-XII grossly intact. Motor strength 5/5 in all extremities. Sensory grossly intact. Cerebellar exam normal. Normal gait. Psych: Awake, alert, with orientation to person, place and time. Behavior, mood, and affect are within normal limits. 17:24 Cardiovascular: Rate: tachycardic, actual rate is 108 bpm, Rhythm: regular, Pulses: Pulses are 4+ in bilateral radial, brachial, femoral, popliteal, posterior tibial and and dorsalis pedis arteries.. Heart sounds: normal, normal S1and S2, no S3 or S4, no murmur, no rub, no gallop, Edema: is not appreciated, JVD: is not appreciated, 17:24 ECG was reviewed by the Attending Physician. Vital Signs: 15:55 BP 121 / 81; Pulse 104; Resp 17; Temp 97.8; Pulse Ox 98% on R/A; Weight 103.42 kg; ap3 Height 5 ft. 6 in. ; Pain 6/10; 17:07 BP 104 / 83; Pulse 102; Resp 18; Pulse Ox 100% on NC; Weight 103.42 kg; Height 5 ft. 6 ld1 in. ; 18:31 BP 129 / 89; Pulse 100; Resp 20 S; Pulse Ox 100% on 2 lpm NC; kc6 21:12 BP 133 / 87; Pulse 96; Resp 16; Pulse Ox 100% on R/A; kd3 22:51 BP 111 / 77; Pulse 92; Resp 18; Temp 97.8; Pulse Ox 100% ; cp4 17:07 Body Mass Index 36.80 (103.42 kg, 167.64 cm) ld1 15:55 Pain Scale: Adult ap3 Lauren Coma Score: 17:07 Eye Response: spontaneous(4). Motor Response: obeys commands(6). Verbal Response: ld1 oriented(5). Total: 15. MDM: 16:07 Patient medically screened. [facility] 18:11 Data reviewed: vital signs, nurses notes, lab test result(s), EKG, radiologic studies. [facility] 09/16 16:19 Order name: Basic Metabolic Panel; Complete Time: 18:12 [facility] 09/16 16:19 Order name: CBC with Diff; Complete Time: 17:20 [facility] 09/16 16:19 Order name: LFT's; Complete Time: 18:12 [facility] 09/16 16:19 Order name: Magnesium; Complete Time: 18:12 [facility] 09/16 16:19 Order name: NT PRO-BNP; Complete Time: 18:12 [facility] 09/16 16:19 Order name: PT-INR; Complete Time: 18:12 [facility] 09/16 16:19 Order name: Troponin HS; Complete Time: 18:12 [facility] 09/16 16:19 Order name: Lipase; Complete Time: 18:12 [facility] 09/16 16:21 Order name: Blood Culture Adult (2) [facility] 09/16 16:21 Order name: Lactate w/ 2H reflex if indic.; Complete Time: 18:12 [facility] 09/16 16:21 Order name: SARS RAPID; Complete Time: 18:12 [facility] 09/16 16:21 Order name: Flu; Complete Time: 18:12 [facility] 09/16 16:19 Order name: XRAY Chest (1 view); Complete Time: 17:20 [facility] 09/16 16:19 Order name: Cardiac monitoring; Complete Time: 16:36 [facility] 09/16 16:19 Order name: EKG - Nurse/Tech; Complete Time: 16:36 [facility] 09/16 16:19 Order name: IV Saline Lock; Complete Time: 16:36 [facility] 09/16 16:19 Order name: Labs collected and sent; Complete Time: 16:36 [facility] 09/16 16:19 Order name: O2 Per Protocol; Complete Time: 16:22 [facility] 09/16 16:19 Order name: O2 Sat Monitoring; Complete Time: 16:22 [facility] 09/16 16:21 Order name: Oxygen: 2 liter; Complete Time: 16:21 [facility] 09/16 17:13 Order name: Labs - recollect needed: recollect blood cultures, collect red [place]son; bd Complete Time: 18:21 EC:24 Rate is 108 beats/min. Rhythm is regular. QRS [place] is Normal. OR interval is normal. alvarez QRS interval is normal. QT interval is normal. No Q waves. T waves are Normal. T waves are Inverted in leads III, aVF. Clinical impression: Sinus tachycardia. Interpreted by me. Reviewed by me. Administered Medications: 16:45 Drug: NS 0.9% IV 1000 ml IV at 75 ml/hr continuous Route: IV; Rate: 75 ml/hr; Site: [facility] right forearm; 18:32 Follow up: Response: No adverse reaction; IV Status: Infusion continued upon transfer; kc6 IV Intake: 1000ml 18:29 Drug: Aspirin PO Chewable Tablet 162 mg PO once Route: PO; 6 19:00 Follow up: Response: No adverse reaction kc6 Disposition Summary: 09/17/23 17:28 Transfer Ordered Notes: Transfer Location: [facility] alvarez Reason: Higher level of care alvarez Condition: Fair alvarez Problem: new alvarez Symptoms: have improved alvarez Accepting Physician: to benjamin ryan(09/17/23 22:54) cp4 Diagnosis - Chest pain, unspecified alvarez - Dyspnea alvarez - Heart transplant status alvarez Forms: - Medication Reconciliation Form alvarez - SBAR form alvarez Signatures: Dispatcher [employer] EDJune Liu Corey, MD MD cha Prokisch, Amanda RN RN ap3 Ilsa Elaine RN RN kc6 Roya Lamb cp4 Corrections: (The following items were deleted from the chart) 16:20 16:20 BASIC METABOLIC PANEL+C.LAB.BRZ ordered. EDMS EDMS 16:20 16:20 CBC+H.LAB.BRZ ordered. EDMS EDMS 16:20 16:20 HEPATIC FUNCTION+C.LAB.BRZ ordered. EDMS EDMS 16:20 16:20 MAGNESIUM+C.LAB.BRZ ordered. EDMS EDMS 16:20 16:20 PROBNP+C.LAB.BRZ ordered. EDMS EDMS 16:20 16:20 PROTIME (+INR)+COAG.LAB.BRZ ordered. EDMS EDMS 16:20 16:20 Troponin High Sensitivity+C.LAB.BRZ ordered. EDMS EDMS 16:20 16:20 LIPASE+C.LAB.BRZ ordered. EDMS EDMS 16:20 16:20 Urinalysis+U.LAB.BRZ ordered. EDMS EDMS 16:20 16:20 Chest Single View+RAD.RAD.BRZ ordered. EDMS EDMS 16:21 16:21 BLOOD CULTURE*+BA.LAB.BRZ ordered. EDMS EDMS 16:21 16:21 LACTATE+C.LAB.BRZ ordered. EDMS EDMS 16: 16:21 SARS-COV-2 Antigen Rapid+I.LAB.BRZ ordered. EDMS EDMS 16:21 16:21 Influenza Screen (A \T\ B)+BA.LAB.BRZ ordered. EDMS EDMS 22:54 17:28 to benjamin ryan [facility]4
[2023-09-17 17:34] LABS: ALT/SGPT 38 U/L (16-61); AST/SGOT 14 U/L (15-37); Albumin 3.7 g/dL (3.4-5.0); Albumin/Globulin Ratio 0.8 (1.1-1.8); Alkaline Phosphatase 78 U/L (45-117); Anion Gap 9.4 mEq/L (5.0-15.0); BUN Blood Urea Nitrogen 13 mg/dL (7-18); Bicarbonate 26 mEq/L (21-32); Bilirubin Total 0.4 mg/dL (0.2-1.0); Globulin 4.6 g/dL (2.3-3.5); Glomerular Filtration Rate 68 ml/min (=/>90); Glucose Level 128 mg/dL (74-106); Lipase 27 U/L (13-75); Magnesium 2.1 mg/dL (1.6-2.4); NT PRO-BNP 105 pg/mL (<125); Potassium 4.4 mEq/L (3.5-5.1); Protein, Total 8.3 g/dL (6.4-8.2); Sodium Level 136 mEq/L (136-145); Troponin High Sensitivity 4.2 pg/mL (<58.9)
[2023-09-17 17:36] LABS: Bilirubin Direct < 0.2 mg/dL (0-0.2); Bilirubin Indirect, Calculated 0.2 mg/dL (0.2-0.8)
[2023-09-17] MEDS ORDERED: ASPIRIN 81 MG CHEWABLE TABLET ONE (18:23)
[2023-09-18 00:39] VITALS: TEMP 97.8
[2023-09-18 00:40] VITALS: O2SAT 100
[2023-09-18 00:45] VITALS: BP 111/77
--- NOTE | 2023-09-18 13:07 | EKG ---
Test Date: 2023-09-17 Test Time: 16:12:10 [employer]: Iain ABBOTT MEASUREMENT RESULTS: Intervals: Rate: 108 VT: 148 QRSD: 118 QT: 354 QTc: 474 [place]: P: 21 VT: 148 QRS: 118 T: -4 INTERPRETIVE STATEMENTS: Sinus tachycardia Right bundle branch block T wave abnormality, consider inferior ischemia Abnormal ECG Compared to ECG 05/26/2023 14:41:47 Right bundle-branch block now present T-wave abnormality now present Possible ischemia now present Incomplete right bundle-branch block no longer present Electronically Signed On 09-18-23 13:05:15 CDT by Heriberto Ivy
== END 2023-09-17 22:54 | disposition short-term general hospital (02) ==
LOC: ER 15:42
DX: R07.9 Chest pain, unspecified (principal); R06.00 Dyspnea, unspecified; Z94.1 Heart transplant status; Z11.52 Encounter for screening for COVID-19
CPT/HCPCS: 87040 ×2; 85025; 80048; 36415; 83735; 85610; 80076; 83605; 84484; 83690; 83880; 87804 ×2; 71045; 87811; J7030; 93005

== ENCOUNTER 2023-12-01 16:45 | Emergency (ER) | payer BC ==
--- NOTE | 2023-12-01 17:19 | ER ---
Nurse's Notes [facility] Name: Justin Garza Age: 42 yrs Sex: Male : 1980 Arrival Date: 12/01/2023 Time: 16:45 Bed DX4 Private MD: Diagnosis: Aphthous Stomatitis Presentation: 11/30 17:14 Chief complaint: Patient states: Sores to lips and tongue area since Friday. No fever ll1 this week. Coronavirus screen: Client denies travel out of the [place] in the last 14 days. At this time, the client does not indicate any symptoms associated with coronavirus-19. Ebola Screen: Patient denies travel to an Ebola-affected area in the 21 days before illness onset. Initial Sepsis Screen: Does the patient meet any 2 criteria? No. Patient's initial sepsis screen is negative. Does the patient have a suspected source of infection? No. Patient's initial sepsis screen is negative. Risk Assessment: Do you want to hurt yourself or someone else? Patient reports no desire to harm self or others. Onset of symptoms was November 25, 2023. 17:14 Method Of Arrival: Ambulatory ll1 17:14 Acuity: ANNIE 4 ll1 Triage Assessment: 17:14 General: Appears in no apparent distress. Behavior is calm, cooperative, appropriate ll1 for age. Pain: Complains of pain in mouth Quality of pain is described as aching. EENT: Reports sores to mouth and tongue. Historical: - Allergies: 17:01 Amoxicillin; ll1 17:01 amoxicillin trihydrate; ll1 17:01 Bees; ll1 17:01 Demerol; ll1 17:01 Epinephrine; ll1 17:01 Iodine; ll1 17:01 Lisinopril; ll1 17:01 loratadine; ll1 17:01 Nuts; ll1 17:01 Pseudoephedrine; ll1 17:01 SEAFOOD; ll1 17:01 Strawberries; ll1 - PMHx: 17:01 Asthma; Borderline Diabetes; cardiomyopathy; cardiomyopathy; CHF; GERD; Seizures; ll1 kidney problems; Irregular heart rate; SJS; - PSHx: 17:01 Heart transplant; ll1 - Immunization history:: Adult Immunizations up to date. - Social history:: Smoking status: Patient denies any tobacco usage or history of. Screenin:50 [facility] ED Fall Risk Assessment (Adult) History of falling in the last 3 months, ar6 including since admission No falls in past 3 months (0 pts) Confusion or Disorientation No (0 pts) Intoxicated or Sedated No (0 pts) Impaired Gait No (0 pts) Mobility Assist Device Used No (0 pt) Altered Elimination No (0 pt) Score/Fall Risk Level 0 - 2 = Low Risk Oriented to surroundings, Maintained a safe environment, Hourly rounding (assess needs \T\ fall precautionary measures) done. Abuse screen: Denies threats or abuse. Denies injuries from another. Nutritional screening: No deficits noted. Tuberculosis screening: No symptoms or risk factors identified. Vital Signs: 17:14 BP 131 / 80; Pulse 108; Resp 18; Temp 97.2; Pulse Ox 99% ; Weight 102.51 kg; Height 5 ll1 ft. 6 in. ; Pain 7/10; 17:14 Body Mass Index 36.48 (102.51 kg, 167.64 cm) ll1 17:14 Pain Scale: Adult ll1 ED Course: 16:50 Patient arrived in ED. ra3 17:01 Arm band placed on. ll1 17:08 Maribel Giron FNP-C [facility]. kb 17:08 Bienvenido Etienne MD is Attending Physician. kb 17:16 Triage completed. ll1 17:50 No apparent distress. ar6 17:50 Patient has correct armband on for positive identification. Bed in low position. Call ar6 light in reach. Provided Education on: plan of care. 17:50 No provider procedures requiring assistance completed. Patient did not have IV access ar6 during this emergency room visit. Administered Medications: No medications were administered Outcome: 17:18 Discharge ordered by . jessie 17:50 Discharged to home ambulatory, ar6 17:50 Condition: good 17:50 Discharge instructions given to patient, Instructed on discharge instructions, follow up and referral plans. 17:51 Patient left the ED. ar6 Signatures: Maribel Giron FNP-C FNP-Abdirizak Magaña RN RN ll1 Rosemarie Penn ra3 Lucia De Anda RN RN ar6
--- NOTE | 2023-12-01 17:19 | EDPHYS ---
Physician Documentation [facility] Name: Justin Garza Age: 42 yrs Sex: Male : 1980 Arrival Date: 12/01/2023 Time: 16:45 Bed DX4 Private MD: ED Physician Bienvenido Etienne HPI: 11/30 17:22 This 42 yrs old Black Male presents to ER via Ambulatory with complaints of sores in kb mouth. 17:22 Pt is a 42 year old male who presents for sores in mouth that started 7 days ago. kb Reports sores are painful. Denies fever. Historical: - Allergies: 17:01 Amoxicillin; ll1 17:01 amoxicillin trihydrate; ll1 17:01 Bees; ll1 17:01 Demerol; ll1 17:01 Epinephrine; ll1 17:01 Iodine; ll1 17:01 Lisinopril; ll1 17:01 loratadine; ll1 17:01 Nuts; ll1 17:01 Pseudoephedrine; ll1 17:01 SEAFOOD; ll1 17:01 Strawberries; ll1 - PMHx: 17:01 Asthma; Borderline Diabetes; cardiomyopathy; cardiomyopathy; CHF; GERD; Seizures; ll1 kidney problems; Irregular heart rate; SJS; - PSHx: 17:01 Heart transplant; ll1 - Immunization history:: Adult Immunizations up to date. - Social history:: Smoking status: Patient denies any tobacco usage or history of. ROS: 17:20 Constitutional: As per HPI kb Exam: 17:20 Constitutional: This is a well developed, well nourished patient who is awake, alert, kb and in no acute distress. Head/Face: Normocephalic, atraumatic. Cardiovascular: Regular rate Respiratory: Respirations even and unlabored. No increased work of breathing. Talking in full sentences Skin: Warm, dry with normal turgor. Normal color. MS/ Extremity: Pulses equal, no cyanosis. Neurovascular intact. Full, normal range of motion. Neuro: Awake and alert, GCS 15, oriented to person, place, time, and situation. 17:20 ENT: Mouth: Oral mucosa: noted to have ulceration(s), aphthous ulcers, Vital Signs: 17:14 BP 131 / 80; Pulse 108; Resp 18; Temp 97.2; Pulse Ox 99% ; Weight 102.51 kg; Height 5 ll1 ft. 6 in. ; Pain 7/10; 17:14 Body Mass Index 36.48 (102.51 kg, 167.64 cm) ll1 17:14 Pain Scale: Adult ll1 MDM: 17:08 Medical Screening Exam initiated kb 17:21 Differential diagnosis: candidiasis, aphthous ulcers, herpes simplex. Data reviewed: kb vital signs, nurses notes. Counseling: I had a detailed discussion with the patient and/or guardian regarding the historical points, exam findings, and any diagnostic results supporting the discharge/admit diagnosis, the need for outpatient follow up, a family practitioner, to return to the emergency department if symptoms worsen or persist or if there are any questions or concerns that arise at home. Administered Medications: No medications were administered Disposition: 17:56 Co-signature as Attending Physician, Bienvenido Etienne MD I reviewed the patient's care rt provided by the Advanced Practice Provider and agree with the diagnosis and treatment plan. Disposition Summary: 12/01/23 17:18 Discharge Ordered Notes: Location: Home kb Condition: Stable kb Diagnosis - Aphthous Stomatitis kb Followup: kb - With: Emergency Department - When: As needed - Reason: Worsening of condition Followup: kb - With: Private Physician - When: 2 - 3 days - Reason: Recheck today's complaints, Continuance of care, Re-evaluation by your physician Discharge Instructions: - Discharge Summary Sheet kb - Nichelle Moore kb Forms: - Medication Reconciliation Form kb - Antibiotic Education kb - Prescription Opioid Use kb - Patient Portal Instructions kb - Leadership Thank You Letter kb Signatures: Maribel Giron FNP-C FNP-Ckb Lewis, Lynsay, RN RN ll1 Bienvenido Etienne MD MD rt
[2023-12-01 22:30] VITALS: BP 131/80; TEMP 97.2; O2SAT 99
== END 2023-12-01 17:51 | disposition home or self-care (01) ==
LOC: ER 16:45
DX: K12.0 Recurrent oral aphthae (principal)
CPT/HCPCS: 99282

== ENCOUNTER 2023-12-31 12:17 | Emergency (ER) | payer BC ==
[2023-12-31 13:04] LABS: SARS-CoV-2 Antigen CONTROL BLUE LINE VIS/BG OK; SARS-CoV-2 Antigen Rapid Res Negative (Negative)
[2023-12-31] MEDS ORDERED: AZITHROMYCIN 250 MG TAB ONE ×2 (14:16→14:34)
--- NOTE | 2023-12-31 14:17 | ER ---
Nurse's Notes [facility] Name: Justin Garza Age: 43 yrs Sex: Male : 1980 Arrival Date: 12/31/2023 Time: 12:17 Bed 10 Private MD: Diagnosis: Acute tonsillitis, unspecified;Acute pharyngitis, unspecified Presentation: 12/30 12:38 Chief complaint: Patient states: Sore throat for 2 days. Couldn't swallow his ll1 medications this morning. No known fever. Coronavirus screen: Client denies travel out of the [place] in the last 14 days. sore throat, Client presents with at least one sign or symptom that may indicate coronavirus-19. Standard/surgical mask placed on the client. Ebola Screen: Patient denies travel to an Ebola-affected area in the 21 days before illness onset. Initial Sepsis Screen: Does the patient meet any 2 criteria? No. Patient's initial sepsis screen is negative. Does the patient have a suspected source of infection? No. Patient's initial sepsis screen is negative. Risk Assessment: Do you want to hurt yourself or someone else? Patient reports no desire to harm self or others. Onset of symptoms was December 30, 2023. 12:38 Method Of Arrival: Ambulatory ll1 12:38 Acuity: ANNIE 4 ll1 Triage Assessment: 12:38 General: Appears uncomfortable, Behavior is calm, cooperative, appropriate for age. ll1 Pain: Complains of pain in throat Quality of pain is described as aching. EENT: Reports pain when swallowing. Historical: - Allergies: 12:37 Amoxicillin; ll1 12:37 amoxicillin trihydrate; ll1 12:37 Bees; ll1 12:37 Demerol; ll1 12:37 Epinephrine; ll1 12:37 Iodine; ll1 12:37 Lisinopril; ll1 12:37 loratadine; ll1 12:37 Nuts; ll1 12:37 Pseudoephedrine; ll1 12:37 SEAFOOD; ll1 12:37 Strawberries; ll1 - PMHx: 12:37 Irregular heart rate; cardiomyopathy; cardiomyopathy; CHF; kidney problems; GERD; SJS; ll1 Borderline Diabetes; Asthma; Seizures; - PSHx: 12:37 Heart transplant; ll1 - Immunization history:: Adult Immunizations up to date. - Social history:: Smoking status: Patient denies any tobacco usage or history of. Screenin:11 Abuse screen: Denies threats or abuse. Denies injuries from another. Nutritional ss screening: No deficits noted. Tuberculosis screening: Never had TB. Assessment: 15:11 Reassessment: Patient appears in no apparent distress at this time. Patient and/or ss family updated on plan of care and expected duration. Pain level reassessed. Patient is alert, oriented x 3, equal unlabored respirations, skin warm/dry/pink. Vital Signs: 12:38 BP 154 / 96; Pulse 100; Resp 18; Temp 97.8; Pulse Ox 100% ; Weight 102.51 kg; Height 5 ll1 ft. 6 in. ; Pain 8/10; 12:38 Body Mass Index 36.48 (102.51 kg, 167.64 cm) ll1 12:38 Pain Scale: Adult ll1 ED Course: 12:20 Patient arrived in ED. mr 12:23 Jordon Bermudez MD is Attending Physician. alvarez 12:37 Arm band placed on. ll1 12:39 Triage completed. ll1 13:10 Flu Sent. ll1 13:10 Strep Sent. ll1 14:16 Julissa Rollins MD is Referral Physician. alvarez 15:11 Patient has correct armband on for positive identification. Bed in low position. ss 15:11 No provider procedures requiring assistance completed. Patient did not have IV access ss during this emergency room visit. Administered Medications: 14:40 Drug: AZITHromycin PO 500 mg PO once Route: PO; ll1 14:40 Drug: GI Cocktail with - (Maalox PO 30 ml, Lidocaine Mucous Membrane 2 % 20 ll1 ml, Phenobarbital-Belladonna PO 10 ml) PO once Route: PO; Medication: 15:11 VIS not applicable for this client. ss Outcome: 14:16 Discharge ordered by . [facility] 15:11 Discharged to home ambulatory, ss 15:11 Condition: good 15:11 Discharge instructions given to patient, family, Instructed on discharge instructions, follow up and referral plans. medication usage, Demonstrated understanding of instructions, follow-up care, medications, Prescriptions given X 3, 15:14 Patient left the ED. ss Signatures: Jordon Bermudez MD MD cha Rivera, Mary, Reg Reg mr Sharmila Walker, RN RN ss Abdirizak Looney, RN RN ll1
--- NOTE | 2023-12-31 14:17 | EDPHYS ---
Physician Documentation [facility] Name: Justin Garza Age: 43 yrs Sex: Male : 1980 Arrival Date: 12/31/2023 Time: 12:17 Bed 10 Private MD: ED Physician Jordon Bermudez HPI: 12/30 14:13 This 43 yrs old Black Male presents to ER via Ambulatory with complaints of Sore Throat.alvarez Historical: - Allergies: 12:37 Amoxicillin; ll1 12:37 amoxicillin trihydrate; ll1 12:37 Bees; ll1 12:37 Demerol; ll1 12:37 Epinephrine; ll1 12:37 Iodine; ll1 12:37 Lisinopril; ll1 12:37 loratadine; ll1 12:37 Nuts; ll1 12:37 Pseudoephedrine; ll1 12:37 SEAFOOD; ll1 12:37 Strawberries; ll1 - PMHx: 12:37 Irregular heart rate; cardiomyopathy; cardiomyopathy; CHF; kidney problems; GERD; SJS; ll1 Borderline Diabetes; Asthma; Seizures; - PSHx: 12:37 Heart transplant; ll1 - Immunization history:: Adult Immunizations up to date. - Social history:: Smoking status: Patient denies any tobacco usage or history of. ROS: 14:13 Constitutional: Negative for fever, chills, and weight loss, Eyes: Negative for injury, alvarez pain, redness, and discharge, Neck: Negative for injury, pain, and swelling, Cardiovascular: Negative for chest pain, palpitations, and edema, Respiratory: Negative for shortness of breath, cough, wheezing, and pleuritic chest pain, Abdomen/GI: Negative for abdominal pain, nausea, vomiting, diarrhea, and constipation, Back: Negative for injury and pain, : Negative for injury, bleeding, discharge, and swelling, MS/Extremity: Negative for injury and deformity, Skin: Negative for injury, rash, and discoloration, Neuro: Negative for headache, weakness, numbness, tingling, and seizure, Psych: Negative for depression, anxiety, suicide ideation, homicidal ideation, and hallucinations, Allergy/Immunology: Negative for hives, rash, and allergies, Endocrine: Negative for neck swelling, polydipsia, polyuria, polyphagia, and marked weight changes, Hematologic/Lymphatic: Negative for swollen nodes, abnormal bleeding, and unusual bruising, 14:13 ENT: Positive for sore throat, Exam: 14:13 Constitutional: This is a well developed, well nourished patient who is awake, alert, alvarez and in no acute distress. Head/Face: Normocephalic, atraumatic. Eyes: Pupils equal round and reactive to light, extra-ocular motions intact. Lids and lashes normal. Conjunctiva and sclera are non-icteric and not injected. Cornea within normal limits. Periorbital areas with no swelling, redness, or edema. Neck: Trachea midline, no thyromegaly or masses palpated, and no cervical lymphadenopathy. Supple, full range of motion without nuchal rigidity, or vertebral point tenderness. No Meningismus. Chest/axilla: Normal chest wall appearance and motion. Nontender with no deformity. No lesions are appreciated. Cardiovascular: Regular rate and rhythm with a normal S1 and S2. No gallops, murmurs, or rubs. Normal PMI, no JVD. No pulse deficits. Respiratory: Lungs have equal breath sounds bilaterally, clear to auscultation and percussion. No rales, rhonchi or wheezes noted. No increased work of breathing, no retractions or nasal flaring. Abdomen/GI: Soft, non-tender, with normal bowel sounds. No distension or tympany. No guarding or rebound. No evidence of tenderness throughout. Back: No spinal tenderness. No costovertebral tenderness. Full range of motion. Male : Normal genitalia with no discharge or lesions. Skin: Warm, dry with normal turgor. Normal color with no rashes, no lesions, and no evidence of cellulitis. MS/ Extremity: Pulses equal, no cyanosis. Neurovascular intact. Full, normal range of motion. Neuro: Awake and alert, GCS 15, oriented to person, place, time, and situation. Cranial nerves II-XII grossly intact. Motor strength 5/5 in all extremities. Sensory grossly intact. Cerebellar exam normal. Normal gait. Psych: Awake, alert, with orientation to person, place and time. Behavior, mood, and affect are within normal limits. 14:13 ENT: Posterior pharynx: Airway: normal, no evidence of obstruction, Tonsils: with erythema, Uvula: midline, erythema, swelling, that is mild, erythema, that is mild, exudate, that is mild, peritonsillar mass, is not appreciated, pooling of secretions, is not appreciated, Vital Signs: 12:38 BP 154 / 96; Pulse 100; Resp 18; Temp 97.8; Pulse Ox 100% ; Weight 102.51 kg; Height 5 ll1 ft. 6 in. ; Pain 8/10; 12:38 Body Mass Index 36.48 (102.51 kg, 167.64 cm) ll1 12:38 Pain Scale: Adult ll1 MDM: 12:23 Medical Screening Exam initiated [facility] 12/30 12:24 Order name: Flu; Complete Time: 14:03 [facility] 12/30 12:24 Order name: Strep [facility] 12/30 12:24 Order name: SARS RAPID; Complete Time: 14:03 [facility] 12/30 13:06 Order name: Throat Culture [facility] 12/30 14:13 Order name: PO challenge; Complete Time: 14:40 alvarez Administered Medications: 14:40 Drug: AZITHromycin PO 500 mg PO once Route: PO; ll1 14:40 Drug: GI Cocktail with - (Maalox PO 30 ml, Lidocaine Mucous Membrane 2 % 20 ll1 ml, Phenobarbital-Belladonna PO 10 ml) PO once Route: PO; Disposition Summary: 12/31/23 14:16 Discharge Ordered Notes: Location: Home [facility] Problem: new [facility] Symptoms: have improved [facility] Condition: Stable [facility] Diagnosis - Acute tonsillitis, unspecified alvarez - Acute pharyngitis, unspecified alvarez Followup: alvarez - With: Private Physician - When: 2 - 3 days - Reason: Recheck today's complaints, Continuance of care, Re-evaluation by your physician Followup: alvarez - With: Julissa Rollins MD - When: 2 - 3 days - Reason: Recheck today's complaints, Re-evaluation by your physician Discharge Instructions: - Discharge Summary Sheet alvarez - Pharyngitis alvarez - Sore Throat alvarez - Tonsillitis alvarez - Tonsillitis, [id number] alvarez - Pharyngitis, [id number] [facility] Forms: - Medication Reconciliation Form alvarez - Antibiotic Education alvarez - Prescription Opioid Use alvarez - Patient Portal Instructions [facility] - Leadership Thank You Letter [facility] Prescriptions: - Tessalon Perles 100 mg Oral capsule - take 2 capsule ORAL route every 8 hours As needed; 30 capsule; Refills: 0, alvarez Product Selection Permitted - Zithromax 500 mg Oral tablet - take 1 tablet ORAL route once daily for 4 days; 4 tablet; Refills: 0, Product [facility] Selection Permitted Signatures: Dispatcher [employer] EDJordon Tinajero MD MD cha Lewis, Lynsay, RN RN ll1 Corrections: (The following items were deleted from the chart) 12:24 12:24 Influenza Screen (A \T\ B)+BA.LAB.BRZ ordered. EDMS EDMS 12:24 12:24 Group A Streptococcus Rapid Sc+BA.LAB.BRZ ordered. EDMS EDMS 12:24 12:24 SARS-COV-2 Antigen Rapid+I.LAB.BRZ ordered. EDMS EDMS
[2023-12-31] MEDS ORDERED: MAGNES/ALUMIN/SIMET 30ML UCUP ONE (14:36)
[2023-12-31] MEDS ORDERED: LIDOCAINE VISCOUS 2% 10ML ORAL SOLN ONE (14:36)
[2023-12-31 15:21] VITALS: BP 108/73; TEMP 97.4; O2SAT 98
== END 2023-12-31 15:14 | disposition home or self-care (01) ==
LOC: ER 12:17
DX: J03.90 Acute tonsillitis, unspecified (principal); Z11.52 Encounter for screening for COVID-19
CPT/HCPCS: 36415; 87070; 87081; 87804; 87811